=== PATIENT | male | born 1930 | race African-American/Black ===

== ENCOUNTER 2017-02-07 19:41 | Inpatient (IN) | payer OTHER, MEDICARE ==
[~2017-02-07] VITALS: Ht 165.1 cm; Wt 74.7 kg
[~2017-02-07 19:41] MED LIST: Z.0.NO CURRENT MEDS
[2017-02-07 19:46] VITALS: BP 186/110; PULSE 100; RESP 16; TEMP 102.7; O2SAT 96
[2017-02-07] MEDS ORDERED: SODIUM CHLOR 0.9% 1000 ML INJ 1,000 ML IV ONE (19:47)
[2017-02-07] MEDS ORDERED: ACETAMINOPHEN 325 MG TAB PO ONE (20:00)
--- NOTE | 2017-02-07 20:18 | RADRPT ---
EXAM DATE/TIME: 02/07/2017 20:03 [facility] COMPARISON: No previous studies available for comparison. INDICATIONS : Fall today; unsteady gait. RADIATION DOSE: 56.77 CTDIvol (mGy) MEDICAL HISTORY : Dementia. SURGICAL HISTORY : None. ENCOUNTER: Initial ACUITY: 1 day PAIN SCALE: 4/10 LOCATION: cranial TECHNIQUE: Multiple contiguous axial images were obtained of the head. Using automated exposure control and adj ustment of the mA and/or kV according to patient size, radiation dose was kept as low as reasonably a chievable to obtain optimal diagnostic quality images. 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 There is patchy mild hypodensity in the deep white matter structures likely chronic ischemic in etiology. There is no evidence of intracranial mas s or hemorrhage. There is nothing to suggest acute infarction. The extracranial structures are benign and intact. CONCLUSION: No acute intracranial injury Tra Garibay MD on February 07, 2017 at 20:16 Board Certified Radiologist. This report was verified electronically.
--- NOTE | 2017-02-07 20:38 | RADRPT ---
EXAM DATE/TIME: 02/07/2017 20:28 [facility] COMPARISON: No previous studies available for comparison. INDICATIONS : Weakness, cough starting today MEDICAL HISTORY : Unobtainable SURGICAL HISTORY : Unobtainable ENCOUNTER: Initial ACUITY: 1 day PAIN SCORE: Non-responsive. LOCATION: Bilateral chest FINDINGS: There is patchy airspace disease at the right lung base medially. Differential diagnosis includes a f ocal bronchopneumonia. Left lung clear. No effusions. No pneumothorax. Atherosclerotic and tortuous a bryon. CONCLUSION: 1. Patchy airspace disease right lung base medially. Differential diagnosis includes focal bronchopne umonia. Clarence Gross MD on February 07, 2017 at 20:34 Board Certified Radiologist. This report was verified electronically.
[2017-02-07 20:41] LABS: AUTOMATED NEUTROPHIL # 5.4 TH/MM3 (1.8-7.7); BASOPHIL % 0.5 % (0.0-2.0); HEMATOCRIT 40.1 % (39.0-51.0); HEMO FLAGS DIFF FINAL; LYMPH % 15.2 % (9.0-44.0); LYMPHOCYTE # 1.1 TH/MM3 (1.0-4.8); MEAN CELL VOLUME 88.3 FL (80.0-100.0); MEAN CORPUSCULAR HEMOGLOBIN 30.5 PG (27.0-34.0); MEAN CORPUSCULAR HGB CONC 34.6 % (32.0-36.0); MONO % 10.4 % (0.0-8.0); NEUT % 73.9 % (16.0-70.0); PLATELET COUNT 133 TH/MM3 (150-450); RED BLOOD COUNT 4.54 MIL/MM3 (4.50-5.90); RED CELL DISTRIBUTION WIDTH 15.1 % (11.6-17.2); WHITE BLOOD COUNT 7.3 TH/MM3 (4.0-11.0)
[2017-02-07 20:42] LABS: BLOOD, URINE SMALL (NEG); GLUCOSE,URINE NEG (NEG); KETONE, URINE NEG (NEG); NITRITE,URINE NEG (NEG); URINE COLOR YELLOW (YELLW/STRAW)
[2017-02-07 20:47] VITALS: RESP 16
[2017-02-07 20:47] LABS: COMMENT (UR) CATH-CULT NOT IND; CULTURE IF INDICATED CATH CULTURE NOT IND
[2017-02-07 20:50] LABS: APTT (PATIENT) 27.7 SEC (24.3-30.1); PROTHROMBIN TIME - PATIENT 11.3 SEC (9.8-11.6)
[2017-02-07 21:06] LABS: ANION GAP 10 MEQ/L (5-15); AST (GOT) 51 U/L (15-37); BICARBONATE 27.1 MEQ/L (21.0-32.0); BLOOD UREA NITROGEN 27 MG/DL (7-18); CHLORIDE 102 MEQ/L (98-107); GLOMERULAR FILTRATION RATE 24 ML/MIN (>89); POTASSIUM 4.3 MEQ/L (3.5-5.1); SODIUM (NA) 139 MEQ/L (136-145)
[2017-02-07 21:11] LABS: ALKALINE PHOSPHATASE 63 U/L (45-117); ALT (GPT) 43 U/L (12-78); TOTAL BILIRUBIN ADULT 0.8 MG/DL (0.2-1.0)
[2017-02-07] MEDS ORDERED: AZITHROMYCIN INJ 500 MG in SODIUM CHLOR 0.9% 250 ML INJ 250 ML IV ONE (21:15)
[2017-02-07] MEDS ORDERED: cefTRIAXone INJ 1,000 MG in SODIUM CHLORIDE 0.9% INJ 100 ML IV ONE (21:15)
[2017-02-07] MEDS ORDERED: ASPIRIN 81 MG CHEW TAB CHEW ONE (21:30)
[2017-02-07 21:43] VITALS: BP 121/69; PULSE 92; RESP 16; TEMP 101.1; O2SAT 97
[2017-02-07] MEDS ORDERED: ONDANSETRON HCL 4 MG/2 ML VIAL IV PUSH PRN (21:45)
[2017-02-07] MEDS ORDERED: RESP: ALBUTEROL 1.25 MG/3 ML NEB (PRN) NEB (22:00)
--- NOTE | 2017-02-07 22:09 | PD ---
HPI Chief Complaint: Fall Time Seen by Provider: 19:45 Travel History International Travel<30 days: No Contact w/Intl Traveler<30days: No Traveled to known affect area: No History of Present Illness HPI Patient is an elderly male with history of dementia, brought in by EMS after his daughter found him to be weak and stumbling while walking. Per EMS, patient fell over into a glass table, which broke, but he did not fall to the ground or hit his head. Patient was found to be febrile by EMS. Patient is demented and is unable to provide any history. PFSH Past Medical History Tetanus Vaccination: Unknown Influenza Vaccination: No Social History Alcohol Use: No Tobacco Use: No Substance Use: No Allergies-Medications (Allergen,Severity, Reaction): Coded Allergies: UNOBTAINABLE (Unverified , 02/07/17) Reported Meds & Prescriptions Reported Meds & Active Scripts Active Active Prescriptions or Reported Medications Unobtainable Review of Systems ROS Limitations: Clinical Condition, Other: (dementia) Physical Exam Narrative GENERAL: Awake and alert, in no acute distress SKIN: Focused skin assessment warm/dry. HEAD: Atraumatic. Normocephalic. EYES: Pupils equal and round. No scleral icterus. ENT: Mucous membranes pink and moist. NECK: Trachea midline. No JVD. CARDIOVASCULAR: Regular rate and rhythm. No murmur appreciated. RESPIRATORY: No accessory muscle use. Rhonchi on the right. Breath sounds equal bilaterally. GASTROINTESTINAL: Abdomen soft, non-tender, nondistended. MUSCULOSKELETAL: No obvious deformities. No clubbing. No cyanosis. No edema. NEUROLOGICAL: Awake and alert, oriented to person only. No obvious cranial nerve deficits. Motor grossly within normal limits. Data Data Last Documented VS Vital Signs Date Time Temp Pulse Resp B/P Pulse Ox O2 Delivery O2 Flow Rate FiO2 02/07/17 21:43 101.1 92 16 121/69 97 Room Air Orders Electrocardiogram (02/07/17 19:47) Complete Blood Count With Diff (02/07/17 19:47) Comprehensive Metabolic Panel (02/07/17 19:47) Prothrombin Time / Inr (Pt) (02/07/17 19:47) Act Partial Throm Time (Ptt) (02/07/17 19:47) Lactic Acid Sepsis Protocol (02/07/17 19:47) Troponin I (02/07/17 19:47) Urinalysis - C+S If Indicated (02/07/17 19:47) Ua Includes Microscopic (02/07/17 19:47) Blood Culture (02/07/17 19:47) Chest, Single Ap (02/07/17 19:47) Blood Glucose (02/07/17 19:47) Ecg Monitoring (02/07/17 19:47) Iv Access Insert/Monitor (02/07/17 19:47) Oximetry (02/07/17 19:47) Acetaminophen (Tylenol) (02/07/17 20:00) Ct Brain W/O Iv Contrast(Rout) (02/07/17 19:47) Sodium Chlor 0.9% 1000 Ml Inj (Ns 1000 M (02/07/17 19:47) Ceftriaxone Inj (Rocephin Inj) (02/07/17 21:15) Azithromycin Inj (Zithromax Inj) (02/07/17 21:15) Aspirin Chew (Aspirin Chew) (02/07/17 21:30) Admit Order (Ed Use Only) (02/07/17 ) Labs Laboratory Tests Test 02/07/17 20:00 White Blood Count 7.3 TH/MM3 Red Blood Count 4.54 MIL/MM3 Hemoglobin 13.9 GM/DL Hematocrit 40.1 % Mean Corpuscular Volume 88.3 FL Mean Corpuscular Hemoglobin 30.5 PG Mean Corpuscular Hemoglobin 34.6 % Concent Red Cell Distribution Width 15.1 % Platelet Count 133 TH/MM3 Mean Platelet Volume 10.2 FL Neutrophils (%) (Auto) 73.9 % Lymphocytes (%) (Auto) 15.2 % Monocytes (%) (Auto) 10.4 % Eosinophils (%) (Auto) 0.0 % Basophils (%) (Auto) 0.5 % Neutrophils # (Auto) 5.4 TH/MM3 Lymphocytes # (Auto) 1.1 TH/MM3 Monocytes # (Auto) 0.8 TH/MM3 Eosinophils # (Auto) 0.0 TH/MM3 Basophils # (Auto) 0.0 TH/MM3 CBC Comment DIFF FINAL Differential Comment Prothrombin Time 11.3 SEC Prothromb Time International 1.0 RATIO Ratio Activated Partial 27.7 SEC Thromboplast Time Urine Color YELLOW Urine Turbidity CLEAR Urine pH 6.0 Urine Specific [place] 1.014 Urine Protein 30 mg/dL Urine Glucose (UA) NEG mg/dL Urine Ketones NEG mg/dL Urine Occult Blood SMALL Urine Nitrite NEG Urine Bilirubin NEG Urine Urobilinogen LESS THAN 2.0 MG/DL Urine Leukocyte Esterase NEG Urine RBC 1 /hpf Urine WBC 1 /hpf Microscopic Urinalysis Comment CATH-CULT NOT IND Sodium Level 139 MEQ/L Potassium Level 4.3 MEQ/L Chloride Level 102 MEQ/L Carbon Dioxide Level 27.1 MEQ/L Anion Gap 10 MEQ/L Blood Urea Nitrogen 27 MG/DL Creatinine 2.36 MG/DL Estimat Glomerular Filtration 24 ML/MIN Rate Random Glucose 110 MG/DL Lactic Acid Level 1.7 mmol/L Calcium Level 9.0 MG/DL Total Bilirubin 0.8 MG/DL Aspartate Amino Transf 51 U/L (AST/SGOT) Alanine Aminotransferase 43 U/L (ALT/SGPT) Alkaline Phosphatase 63 U/L Troponin I 0.18 NG/ML Total Protein 8.3 GM/DL Albumin 3.7 GM/DL [facility] Medical Decision Making Medical Screen Exam Complete: Yes Emergency Medical Condition: Yes Interpretation(s) ECG shows normal sinus rhythm at 96, no ST elevation or depression, normal intervals Differential Diagnosis Sepsis vs ICH vs pneumonia vs UTI Narrative Course Patient is an elderly gentleman brought in due to weakness, afebrile. Exam shows rhonchi in the right lung. IV established, labs sent. Troponin is slightly elevated at 0.18. ECG shows no evidence of ST elevation or depression. Labs also show a creatinine of 2.36, I am unaware if this is old or new. Patient given IV fluids. Given Tylenol for fever. Given Rocephin and azithromycin for pneumonia. Patient given an aspirin. Blood thinners held at this time as elevated troponin is likely due to sepsis. We'll trend the lab. Patient admitted for further management. Sepsis Criteria SIRS Criteria (2 or more): Temp > 100.9 or < 96.8, Heart rate over 90 Sepsis Criteria (SIRS+source): Infect source susp/known Criteria Outcome: Meets sepsis criteria Diagnosis Primary Impression: Pneumonia Qualified Code: J18.1 - Pneumonia of right lower lobe due to infectious organism Additional Impression: Sepsis Qualified Code: A41.9 - Sepsis, due to unspecified organism Admitting Information Admitting Physician Requests: Admit Scripts Unable to Obtain Active Prescriptions or Reported Meds Dodie Amaya MD Feb 07, 2017 22:09
[2017-02-07] MEDS: SODIUM CHLOR 0.9% 1000 ML INJ 1,000 ML IV SCH (23:22)
[2017-02-07 23:23] VITALS: TEMP 99.3
[2017-02-08] VITALS (8 sets, daily range): BP systolic 135–194; BP diastolic 85–119; PULSE 82–121; RESP 16–20; TEMP 96.2–102.2; O2SAT 92–97
--- NOTE | 2017-02-08 01:38 | HHI.HP ---
[facility] Unknown Admission Diagnosis pneumonia, sepsis Diagnoses: (1) Pneumonia (2) Sepsis (3) Renal insufficiency (4) Elevated troponin I level Chief Complaint: Fall, unsteady gate Travel History International Travel<30 Days: No Contact w/Intl Traveler <30 Da: No Traveled to Known Affected Are: No History of Present Illness History cannot be obtained from patient due to dementia; no family has accompanied the patient and we have no contact information for family. History is obtained from discussions with ER physician and ER nurse. Some of their information was gathered from what limited data EMS collected regarding patient' s condition. The patient is seen in the emergency room. He states that his name is "Tono " and he tells us he does not have a last name. He is alert and oriented to self only. He is unable to provide any historical information. The patient's registered nurse tells us that EMS reported the patient had an unsteady gait for 1 day and fell at home. He is normally able to walk without assistance. He has a history of dementia. Hopefully the patient's family will come to the bedside to clarify the patient's history. The patient's nurse indicates that the triage security and staff are aware that we are looking for family and have been directed to bring them straight back to the unit where he is should they arrive. Review of Systems ROS Limitations: Clinical Condition, Poor Historian (due to dementia) Past Family Social History Past Medical History Unable to obtain past medical history other than that the patient suffers from dementia . Past Surgical History Unable to obtain . Reported Medications unable to obtain . Allergies: Coded Allergies: UNOBTAINABLE (Unverified , 02/07/17) Active Ordered Medications Current Medications Acetaminophen 650 mg 650 mg ONCE ONCE PO Last administered on 02/07/17 20:38; Start 02/07/17 at 20:00; Stop 02/07/17 at 20:01; Status DC Sodium Chloride 1,000 ml @ 1,000 mls/hr Q1H ONCE IV Last administered on 20:38; Start 02/07/17 at 19:47; Stop 02/07/17 at 20:46; Status DC Ceftriaxone Sodium 1000 mg/ Sodium Chloride 100 ml @ 200 mls/hr ONCE ONCE IV Last administered on 02/07/17 21:36; Start 02/07/17 at 21:15; Stop 02/07/17 at 21: 44; Status DC Azithromycin/ Sodium Chloride (Zithromax Inj/ NS 250 ml Inj) 250 ml @ 250 mls/ hr ONCE ONCE IV Last administered on 02/07/17 22:20; Start 02/07/17 at 21:15; Stop 02/07/17 at 22:14; Status DC Aspirin 162 mg 162 mg ONCE ONCE CHEW Last administered on 02/07/17 21:38; Start 02/07/17 at 21:30; Stop 02/07/17 at 21:31; Status DC Ceftriaxone Sodium 1000 mg/ Sodium Chloride 100 ml @ 200 mls/hr Q24H IV ; Start 02/08/17 at 21:00 Azithromycin 500 mg/Sodium Chloride 250 ml @ 250 mls/hr Q24H IV ; Start at 21:00 Sodium Chloride (NS 1000 ml Inj) 1,000 ml @ 75 mls/hr [id number] IV Last administered on 02/07/17 23:22; Start 02/07/17 at 21:45 Acetaminophen (Tylenol) 650 mg Q4H PRN PO FEVER/PAIN; Start 02/07/17 at 21:45 Ondansetron HCl (Zofran Inj) 4 mg Q8H PRN IV PUSH NAUSEA; Start 02/07/17 at 21: 45 Albuterol Sulfate (Albuterol Neb) 1.25 mg Q4HR NEB PRN NEB SHORTNESS OF BREATH ; Start 02/07/17 at 22:00 . Family History Unable to obtain . Social History Unable to obtain . Physical Exam Vital Signs Vital Signs Date Time Temp Pulse Resp B/P Pulse Ox O2 Delivery O2 Flow Rate FiO2 02/08/17 01:14 82 16 152/85 97 Room Air 02/07/17 23:23 99.3 02/07/17 21:43 101.1 92 16 121/69 97 Room Air 02/07/17 21:36 16 02/07/17 20:47 16 02/07/17 19:50 16 Room Air 02/07/17 19:46 102.7 100 16 186/110 96 Physical Exam GENERAL: This is a thin, friendly elderly male with a [place] accent, in no apparent distress. He is alert and oriented to self only. SKIN: No rashes, ecchymoses or lesions. Cool and dry. HEAD: Atraumatic. Normocephalic. EYES: No scleral icterus. No injection or drainage. Right cataract. ENT: Nose without bleeding, purulent drainage. NECK: Trachea midline. No JVD or lymphadenopathy. CARDIOVASCULAR: Regular rate and rhythm without murmurs, gallops, or rubs. RESPIRATORY: Bilateral rhonchi; more on the right side. No wheezes, rales. GASTROINTESTINAL: Abdomen soft, non-tender, nondistended. No guarding. MUSCULOSKELETAL: Extremities without clubbing, cyanosis, or edema. No calf tenderness. NEUROLOGICAL: Awake and alert. Motor and sensory grossly within normal limits. Normal speech. . Laboratory Laboratory Tests Test 02/07/17 20:00 White Blood Count 7.3 Red Blood Count 4.54 Hemoglobin 13.9 Hematocrit 40.1 Mean Corpuscular Volume 88.3 Mean Corpuscular Hemoglobin 30.5 Mean Corpuscular Hemoglobin 34.6 Concent Red Cell Distribution Width 15.1 Platelet Count 133 Mean Platelet Volume 10.2 Neutrophils (%) (Auto) 73.9 Lymphocytes (%) (Auto) 15.2 Monocytes (%) (Auto) 10.4 Eosinophils (%) (Auto) 0.0 Basophils (%) (Auto) 0.5 Neutrophils # (Auto) 5.4 Lymphocytes # (Auto) 1.1 Monocytes # (Auto) 0.8 Eosinophils # (Auto) 0.0 Basophils # (Auto) 0.0 CBC Comment DIFF FINAL Differential Comment Prothrombin Time 11.3 Prothromb Time International 1.0 Ratio Activated Partial 27.7 Thromboplast Time Urine Color YELLOW Urine Turbidity CLEAR Urine pH 6.0 Urine Specific [place] 1.014 Urine Protein 30 Urine Glucose (UA) NEG Urine Ketones NEG Urine Occult Blood SMALL Urine Nitrite NEG Urine Bilirubin NEG Urine Urobilinogen LESS THAN 2.0 Urine Leukocyte Esterase NEG Urine RBC 1 Urine WBC 1 Microscopic Urinalysis Comment CATH-CULT NOT IND Sodium Level 139 Potassium Level 4.3 Chloride Level 102 Carbon Dioxide Level 27.1 Anion Gap 10 Blood Urea Nitrogen 27 Creatinine 2.36 Estimat Glomerular Filtration 24 Rate Random Glucose 110 Lactic Acid Level 1.7 Calcium Level 9.0 Total Bilirubin 0.8 Aspartate Amino Transf 51 (AST/SGOT) Alanine Aminotransferase 43 (ALT/SGPT) Alkaline Phosphatase 63 Troponin I 0.18 Total Protein 8.3 Albumin 3.7 Date/Time Procedure Status Source Growth 02/07/17 20:05 Aerobic Blood Culture Received Blood Peripheral Pending 02/07/17 20:05 Anaerobic Blood Culture Received Blood Peripheral Pending Result Diagram: 02/07/17199902/07/171999 Imaging Last Impressions Head CT 02/07/171946 Signed Impressions: Service Date/Time: Tuesday, February 07, 2017 20:03 - CONCLUSION: No acute intracranial injury Tra Garibay MD Chest X-Ray 02/07/171946 Signed Impressions: Service Date/Time: Tuesday, February 07, 2017 20:28 - CONCLUSION: 1. Patchy airspace disease right lung base medially. Differential diagnosis includes focal bronchopneumonia. Clarence Gross MD . Assessment and Plan Problem List: (1) Pneumonia ICD Code: J18.9 Status: Acute (2) Sepsis ICD Code: A41.9 Status: Acute (3) Renal insufficiency ICD Code: N28.9 Status: Acute (4) Elevated troponin I level ICD Code: R74.8 Status: Acute Assessment and Plan Right middle lobe pneumonia Sepsis - Ceftriaxone 1 g IV every 24 hours - Azithromycin 500 mg IV every 24 hours - Albuterol nebulizer 1.25 mg every 4 hours as needed for shortness of breath - Supplemental oxygen titrated to maintain oxygen saturation greater than 92% Troponin I elevation - likely secondary to a combination of both renal disease and sepsis - Initial troponin I is 0.18 - Serial troponin I measurements - follow trends Renal Disease - no prior labs available for comparison - - BUN 27, creatinine 2.36, estimated GFR 24 - Gentle IV fluid hydration with normal saline at 75 cc per hour - Recheck BMP in a.m. and follow trends in renal indices - Avoid nephrotoxins DVT prophylaxis - SCDs Written by Jo Qureshi, acting as scribe for Dr. Pizarro on 02/08/17 at 01:33. patient was seen and examined today. patient with dementia , with fever and RLL infiltrate. continue with IV antibiotics and monitor clinically. will trend the cardiac enzymes- information is limited due to patient's dementia. rest of assessment and plan as noted above. . Discussed Condition With ER physician and RN . Physician Certification 2 Midnight Certification Type: Admission for Inpatient Services Order for Inpatient Services The services are ordered in accordance with Medicare regulations or non- Medicare payer requirements, as applicable. In the case of services not specified as inpatient-only, they are appropriately provided as inpatient services in accordance with the 2-midnight benchmark. Estimated LOS (days): 3 days is the estimated time the patient will need to remain in the hospital, assuming treatment plan goals are met and no additional complications. Post-Hospital Plan: Not yet determined Problem Qualifiers (1) Pneumonia: Qualified Code: J18.1 - Pneumonia of right lower lobe due to infectious organism (2) Sepsis: Qualified Code: A41.9 - Sepsis, due to unspecified organism Jo Qureshi Feb 08, 2017 01:38 Mitchell Pizarro MD Feb 08, 2017 03:09
[2017-02-08 06:56] LABS: C. DIFF EPI 027 PRESUMPTIVE NEGATIVE (NEGATIVE)
--- NOTE | 2017-02-08 09:11 | HHI.PR ---
Subjective Remarks Follow-up sepsis, pneumonia, encephalopathy. The patient is quite confused. He is not able to provide any history. No family is available at bedside at this time. Objective Vitals Vital Signs Date Time Temp Pulse Resp B/P Pulse Ox O2 Delivery O2 Flow Rate FiO2 02/08/17 08:05 92 21 02/08/17 04:38 98.9 02/08/17 04:00 86 16 160/91 96 Room Air 02/08/17 01:14 82 16 152/85 97 Room Air 02/07/17 23:23 99.3 02/07/17 21:43 101.1 92 16 121/69 97 Room Air 02/07/17 21:36 16 02/07/17 20:47 16 02/07/17 19:50 16 Room Air 02/07/17 19:46 102.7 100 16 186/110 96 Result Diagram: 02/07/17199902/07/171999 Imaging Last Impressions Head CT 02/07/171946 Signed Impressions: Service Date/Time: Tuesday, February 07, 2017 20:03 - CONCLUSION: No acute intracranial injury Tra Garibay MD Chest X-Ray 02/07/171946 Signed Impressions: Service Date/Time: Tuesday, February 07, 2017 20:28 - CONCLUSION: 1. Patchy airspace disease right lung base medially. Differential diagnosis includes focal bronchopneumonia. Clarence Gross MD Objective Remarks General: Thin male in no acute distress. Heart: Regular rate and rhythm. No murmur. Lungs: Clear to auscultation bilaterally. No wheezes, rales, or rhonchi. Breathing is nonlabored. Abdomen: Soft, nontender, nondistended. Extremities: No lower extremity edema. Psych: Alert, confused. Urinary Catheter: No Vascular Central Line Catheter: No A/P Problem List: (1) Pneumonia ICD Code: J18.9 Status: Acute (2) Sepsis ICD Code: A41.9 Status: Acute (3) Renal insufficiency ICD Code: N28.9 Status: Acute (4) Elevated troponin I level ICD Code: R74.8 Status: Acute (5) Encephalopathy ICD Code: G93.40 Status: Acute Assessment and Plan 1. Sepsis secondary to right middle lobe pneumonia: Continue IV antibiotics. Blood cultures are pending. 2. Pneumonia: Continue antibiotics, nebulizers, supplemental oxygen. 3. Acute versus chronic renal failure: BUN and creatinine are elevated. No prior labs available for review. Continue IV fluids. Repeat labs are pending this morning. 4. Elevated troponin: Likely secondary to combination of renal disease, sepsis. Follow serial troponins. 5. Encephalopathy: Likely secondary to sepsis. May be a component of dementia. Awaiting arrival of family to provide more information regarding patient's history. 6. DVT prophylaxis: Bharathi, KAREY muhammad. Problem Qualifiers (1) Pneumonia: Qualified Code: J18.1 - Pneumonia of right lower lobe due to infectious organism (2) Sepsis: Qualified Code: A41.9 - Sepsis, due to unspecified organism Trav Velez MD Feb 08, 2017 09:11
[2017-02-08] MEDS ORDERED: HYDR50TA15 PO (09:45)
[2017-02-08] MEDS ORDERED: METO50TA11 PO (09:45)
[2017-02-08] MEDS ORDERED: LOSA100T PO (09:45)
[2017-02-08 11:10] LABS: BICARBONATE 21.9 MEQ/L (21.0-32.0); POTASSIUM 4.1 MEQ/L (3.5-5.1)
[2017-02-08] MEDS: SODIUM CHLOR 0.9% 1000 ML INJ 1,000 ML IV SCH (12:05)
--- NOTE | 2017-02-08 12:53 | EKG ---
Date Performed: 02/07/2017 Time Performed: 21:24:56 PTAGE: 89 years EKG: Sinus rhythm WITH OCCASIONAL SUPRAVENTRICULAR PREMATURE COMPLEXES MARKED LEFT AXIS DEVIATION NONSPECIFIC ST & T[address] A[address] ABNORMALITY ABNORMAL ECG NO PREVIOUS TRACING DOCTOR: Bhavesh Pollock Interpretating Date/Time 02/08/2017 12:52:31
[2017-02-08] MEDS ORDERED: hydrALAZINE HCL 10 MG TAB PO PRN (13:15)
[2017-02-08] MEDS: ACETAMINOPHEN 325 MG TAB PO PRN (15:02)
[2017-02-08] MEDS: METOPROLOL SUCCINATE 50 MG EXTENDED RELEASE TAB PO SCH (15:02)
[2017-02-08 15:23] LABS: C. DIFF TOXIN PCR POSITIVE (NEGATIVE)
[2017-02-08] MEDS: hydrALAZINE HCL 50 MG TAB PO SCH (20:18)
[2017-02-08] MEDS: cefTRIAXone INJ 1,000 MG in SODIUM CHLORIDE 0.9% INJ 100 ML IV SCH (20:18)
[2017-02-08] MEDS ORDERED: AZITHROMYCIN INJ 500 MG in SODIUM CHLOR 0.9% 250 ML INJ 250 ML IV SCH (21:00)
[2017-02-09] VITALS: BP 122/91; PULSE 60; RESP 24; TEMP 102.5; O2SAT 93
[2017-02-09 04:00] VITALS: BP 120/96; PULSE 60; RESP 24; TEMP 103.1
[2017-02-09] MEDS: SODIUM CHLOR 0.9% 1000 ML INJ 1,000 ML IV SCH ×2 (04:00→14:50)
[2017-02-09] MEDS: ACETAMINOPHEN 325 MG TAB PO PRN ×3 (05:45→20:24)
[2017-02-09 06:56] LABS: AUTOMATED NEUTROPHIL # 6.3 TH/MM3 (1.8-7.7); BASOPHIL % 0.3 % (0.0-2.0); EOSINOPHIL % 0.1 % (0.0-4.0); HEMATOCRIT 36.1 % (39.0-51.0); MEAN CELL VOLUME 88.6 FL (80.0-100.0); MEAN CORPUSCULAR HEMOGLOBIN 29.6 PG (27.0-34.0); MEAN CORPUSCULAR HGB CONC 33.4 % (32.0-36.0); MONO % 7.8 % (0.0-8.0); NEUT % 78.8 % (16.0-70.0); PLATELET COUNT 115 TH/MM3 (150-450); RED BLOOD COUNT 4.07 MIL/MM3 (4.50-5.90); RED CELL DISTRIBUTION WIDTH 14.8 % (11.6-17.2)
[2017-02-09 06:57] LABS: HEMO FLAGS AUTO DIFF
[2017-02-09 07:20] LABS: BICARBONATE 24.7 MEQ/L (21.0-32.0); MAGNESIUM 1.8 MG/DL (1.5-2.5); POTASSIUM 3.8 MEQ/L (3.5-5.1)
[2017-02-09 08:09] LABS: BANDS 28 % (0-6); METAMYELOCYTES 2 % (0-1); MYELOCYTES 1 % (0-0); NEUTROPHIL # MANUAL DIFF 6.6 TH/MM3 (1.8-7.7); POLYS (SEG NEUTROPHILS) 52 % (16-70); WBC DIFF SAMPLE 100
[2017-02-09 08:10] LABS: OVALOCYTES 3+ (NORMAL)
[2017-02-09 08:13] LABS: PLATELET ESTIMATE SMEAR LOW (NORMAL); PLATELET MORPHOLOGY NORMAL (NORMAL); SCAN/DIFF FINAL DIFF MANUAL
[2017-02-09 08:24] VITALS: BP 156/90; PULSE 94; RESP 18; TEMP 101.1; O2SAT 94
[2017-02-09] MEDS: metroNIDAZOLE 500 MG TAB PO SCH ×2 (08:58→17:47)
[2017-02-09] MEDS: hydrALAZINE HCL 50 MG TAB PO SCH ×2 (08:58→20:24)
[2017-02-09] MEDS: METOPROLOL SUCCINATE 50 MG EXTENDED RELEASE TAB PO SCH (08:59)
[2017-02-09] MEDS: LOSARTAN 50 MG TAB PO SCH (08:59)
--- NOTE | 2017-02-09 11:30 | HHI.PR ---
Subjective Remarks Follow-up fever, sepsis. Patient remains confused. Has been febrile up to 103.1 this morning. Denies pain, dyspnea. Objective Vitals Vital Signs Date Time Temp Pulse Resp B/P Pulse Ox O2 Delivery O2 Flow Rate FiO2 02/09/17 08:24 101.1 94 18 156/90 94 02/09/17 04:00 103.1 60 24 120/96 02/09/17 00:00 102.5 60 24 122/91 93 02/08/17 20:00 96.2 102 20 180/ 94 02/08/17 17:30 93 21 02/08/17 16:37 102.2 121 20 135/119 93 I/O 02/08/17 02/08/17 02/08/17 02/09/17 02/09/17 02/09/17 07:00 15:00 23:00 07:00 15:00 23:00 Intake Total 1144 ml Output Total 100 ml Balance -100 ml 1144 ml Intake Oral 240 ml IV Total 904 ml Output Urine Total 100 ml # Voids 2 2 1 # Bowel Movements 0 0 Result Diagram: 02/09/17 0635 02/09/17 0635 Imaging Last Impressions Head CT 02/07/171946 Signed Impressions: Service Date/Time: Tuesday, February 07, 2017 20:03 - CONCLUSION: No acute intracranial injury Tra Garibay MD Chest X-Ray 02/07/171946 Signed Impressions: Service Date/Time: Tuesday, February 07, 2017 20:28 - CONCLUSION: 1. Patchy airspace disease right lung base medially. Differential diagnosis includes focal bronchopneumonia. Clarence Gross MD Objective Remarks General: Thin elderly male in no acute distress. Heart: Regular rate and rhythm. No murmur. Lungs: Clear to auscultation bilaterally. No wheezes, rales, or rhonchi. Breathing is nonlabored. Abdomen: Soft, nontender, nondistended. Extremities: No lower extremity edema. Psych: Alert, confused. Not oriented to year, location. Urinary Catheter: No Vascular Central Line Catheter: No A/P Problem List: (1) Pneumonia ICD Code: J18.9 Status: Acute (2) Sepsis ICD Code: A41.9 Status: Acute (3) Renal insufficiency ICD Code: N28.9 Status: Acute (4) Elevated troponin I level ICD Code: R74.8 Status: Acute (5) Encephalopathy ICD Code: G93.40 Status: Acute (6) Clostridium difficile infection ICD Code: B96.89 Status: Acute Assessment and Plan 1. Sepsis secondary to right middle lobe pneumonia, C. difficile: Continue IV antibiotics. Blood cultures are negative so far. Patient remains febrile. Started on Flagyl. Infectious disease consult requested. 2. Pneumonia: Continue antibiotics, nebulizers, supplemental oxygen. 3. Acute versus chronic renal failure: BUN and creatinine are trending down. Continue IV fluids. 4. Elevated troponin: Likely secondary to combination of renal disease, sepsis. 5. Encephalopathy: Likely secondary to sepsis. Patient also apparently has history of dementia. 6. DVT prophylaxis: SCDs, KAREY muhammad. Problem Qualifiers (1) Pneumonia: Qualified Code: J18.1 - Pneumonia of right lower lobe due to infectious organism (2) Sepsis: Qualified Code: A41.9 - Sepsis, due to unspecified organism Trav Velez MD Feb 09, 2017 11:30
[2017-02-09 11:40] VITALS: BP 122/81; PULSE 80; RESP 18; TEMP 96.9; O2SAT 95
--- NOTE | 2017-02-09 12:22 | PD.CONS ---
History of Present Illness Service Infectious disease Consult Requested By Dr Tere Velez Reason for Consult Evaluate patient with pneumonia and C diff Primary Care Physician Diagnoses: History of Present Illness Patient seen and examined. Records reviewed. History is been obtained from patient's current records in [facility]. He is a very poor historian. He has history of dementia. Looks like he was brought in to the hospital by the daughter because of unsteady gait which apparently started about a day prior to admission. He fell at home, but there was no mention that he had any loss of consciousness. There was no mention that the patient was having any problem with fever or chills or sweats. No respiratory complaints, nausea or vomiting, abdominal pain, or diarrhea. Since admission, patient has had fevers. His WBC has been normal. He had a creatinine of 2.36 which has improved. His chest x-ray showing some patchy infiltrate in the right base medially. His urinalysis was unremarkable. Yesterday morning the patient apparently had 2 episodes of diarrhea. Stool for C. difficile came back positive. As of today patient has had one more she dark brown stool. Infectious disease consultation has been requested to evaluate the patient. Review of Systems ROS Limitations: Clinical Condition, Altered Mental Status Past Family Social History Allergies: Coded Allergies: No Known Allergies (Verified , 11/22/06) UNOBTAINABLE (Unverified , 02/09/17) Past Medical History Dementia Past Surgical History Not known Active Ordered Medications Tylenol Albuterol Zithromax Rocephin Hydralazine Cozaar Lopressor Flagyl Zofran Social History Per record no smoking, no alcohol or illicit drugs Physical Exam Vital Signs Vital Signs Date Time Temp Pulse Resp B/P Pulse Ox O2 Delivery O2 Flow Rate FiO2 02/09/17 11:40 96.9 80 18 122/81 95 02/09/17 08:24 101.1 94 18 156/90 94 02/09/17 04:00 103.1 60 24 120/96 02/09/17 00:00 102.5 60 24 122/91 93 02/08/17 20:00 96.2 102 20 180/ 94 02/08/17 17:30 93 21 02/08/17 16:37 102.2 121 20 135/119 93 Physical Exam GENERAL: This is a thin, well-developed male, awake and alert, but very poor orientation. He looks comfortable at rest. SKIN: Warm and dry, no generalized rash or ecchymosis. HEAD: Atraumatic. Normocephalic. No temporal or scalp tenderness. EYES: [place] conjunctivae. Pupils equal round and reactive. Extraocular motions intact. No scleral icterus. No injection or drainage. ENT: Nose without bleeding, or purulent drainage. Moist oral mucosa, edentulous , and he is wearing upper and lower dentures. Throat without erythema, or exudate. Uvula midline. Airway patent. NECK: Trachea midline. No JVD or lymphadenopathy. Supple, nontender, no meningeal signs. CARDIOVASCULAR: Regular rate and rhythm without murmurs, gallops, or rubs. RESPIRATORY: Clear to auscultation. Breath sounds equal bilaterally. No wheezes , rales, or rhonchi. Decreased breath sounds at the bases. GASTROINTESTINAL: Abdomen soft, flat, non-tender, nondistended. Bowel sounds are present and normoactive. No organomegaly. No guarding. No rebound. MUSCULOSKELETAL: Extremities without clubbing, cyanosis, or edema. No joint effusion, good ROM. No calf tenderness. NEUROLOGICAL: Awake and alert. Cranial nerves II through XII intact. Motor and sensory grossly within normal limits. Five out of 5 muscle strength in all muscle groups. Normal speech. PSYCH: Currently he is calm and cooperative. LINE: PIV with no evidence of infection Laboratory Laboratory Tests Test 02/09/17 06:35 White Blood Count 8.0 Red Blood Count 4.07 Hemoglobin 12.1 Hematocrit 36.1 Mean Corpuscular Volume 88.6 Mean Corpuscular Hemoglobin 29.6 Mean Corpuscular Hemoglobin 33.4 Concent Red Cell Distribution Width 14.8 Platelet Count 115 Mean Platelet Volume 10.2 Neutrophils (%) (Auto) 78.8 Lymphocytes (%) (Auto) 13.0 Monocytes (%) (Auto) 7.8 Eosinophils (%) (Auto) 0.1 Basophils (%) (Auto) 0.3 Neutrophils # (Auto) 6.3 Lymphocytes # (Auto) 1.0 Monocytes # (Auto) 0.6 Eosinophils # (Auto) 0.0 Basophils # (Auto) 0.0 CBC Comment AUTO DIFF Differential Total Cells 100 Counted Neutrophils % (Manual) 52 Band Neutrophils % 28 Lymphocytes % 10 Monocytes % 7 Neutrophils # (Manual) 6.6 Metamyelocytes 2 Myelocytes 1 Differential Comment FINAL DIFF MANUAL Platelet Estimate LOW Platelet Morphology Comment NORMAL Ovalocytes 3+ Sodium Level 138 Potassium Level 3.8 Chloride Level 104 Carbon Dioxide Level 24.7 Anion Gap 9 Blood Urea Nitrogen 23 Creatinine 1.77 Estimat Glomerular Filtration 45 Rate Random Glucose 92 Calcium Level 8.1 Phosphorus Level 2.1 Magnesium Level 1.8 Date/Time Procedure Status Source Growth 02/09/17 10:42 Aerobic Blood Culture Received Blood Peripheral Pending 02/09/17 10:42 Anaerobic Blood Culture Received Blood Peripheral Pending 02/07/17 20:05 Aerobic Blood Culture - Preliminary Resulted Blood Peripheral NO GROWTH IN 2 DAYS 02/07/17 20:05 Anaerobic Blood Culture - Preliminary Resulted Blood Peripheral NO GROWTH IN 2 DAYS Result Diagram: 02/09/17 0635 02/09/17 0635 Imaging RADIOLOGY STUDIES/FILMS REVIEWED Head CT 02/07/171946 Signed Impressions: Service Date/Time: Tuesday, February 07, 2017 20:03 - CONCLUSION: No acute intracranial injury Tra Garibay MD Chest X-Ray 02/07/171946 Signed Impressions: Service Date/Time: Tuesday, February 07, 2017 20:28 - CONCLUSION: 1. Patchy airspace disease right lung base medially. Differential diagnosis includes focal bronchopneumonia. Clarence Gross MD Assessment and Plan Assessment and Plan IMPRESSION Sepsis, with high fevers, normal WBC, has infiltrate R base, no PNA symptoms, has stool for C diff, 2 stools yesterday, one today, benign abdominal exam, UA ok Known Dementia RECOMMENDATION Follow C/S Bladder scan Repeat CXR Urine for legio and pneumo Ag Agree with current Abx: Rocephin, Zithromax (change to po), and Flagyl Add Lactinex Monitor progress Follow temps I will follow along with you Thank you for this consultation Discussed Condition With D/W RN Tricia Garcia MD Feb 09, 2017 12:21
--- NOTE | 2017-02-09 13:17 | RADRPT ---
EXAM DATE/TIME: 02/09/2017 12:49 [place] COMPARISON: CHEST SINGLE AP, February 07, 2017, 20:28. INDICATIONS : Follow up right base infiltrate. MEDICAL HISTORY : Dementia. SURGICAL HISTORY : None. PAIN SCORE: 0/10 LOCATION: Bilateral chest FINDINGS: . Increasing consolidations are present in the right lung base. The left lung is clear. The heart a nd pulmonary vascularity are normal. The portion of the bony skeleton visualized is unremarkable. CONCLUSION: Increasing consolidative changes right lung base. Arya Horton MD FACR on February 09, 2017 at 13:14 Board Certified Radiologist. This report was verified electronically.
--- NOTE | 2017-02-09 13:35 | EKG ---
Date Performed: 02/08/2017 Time Performed: 09:57:57 PTAGE: 86 years EKG: Sinus rhythm WITH FREQUENT SUPRAVENTRICULAR PREMATURE COMPLEXES MARKED LEFT AXIS DEVIATION POSSIBLE RIGHT VENTRIC ULAR CONDUCTION DELAY ANTEROSEPTAL MYOCARDIAL INFARCTION ABNORMAL ECG Compared to prior tracing no si gnificant change PREVIOUS TRACING : 02/07/2017 21.24 DOCTOR: Jose Ortiz Interpretating Date/Time 02/09/2017 13:35:06
[2017-02-09] MEDS: LACTOBACILLUS ACIDOPHILUS TAB PO SCH ×2 (14:47→17:46)
[2017-02-09 16:34] VITALS: BP 161/92; PULSE 96; RESP 20; TEMP 96.5; O2SAT 95
[2017-02-09 20:15] VITALS: BP 139/80; PULSE 96; RESP 20; TEMP 102.7; O2SAT 94
[2017-02-09] MEDS: AZITHROMYCIN 250 MG TAB PO SCH (20:24)
[2017-02-09] MEDS: cefTRIAXone INJ 1,000 MG in SODIUM CHLORIDE 0.9% INJ 100 ML IV SCH (20:24)
[2017-02-10 00:28] VITALS: BP 135/82; PULSE 65; RESP 20; TEMP 103.4; O2SAT 95
[2017-02-10] MEDS: metroNIDAZOLE 500 MG TAB PO SCH ×3 (00:42→18:26)
[2017-02-10] MEDS: ACETAMINOPHEN 325 MG TAB PO PRN (00:44)
[2017-02-10] MEDS: ACETAMINOPHEN 650 MG SUPP RECTAL PRN ×2 (01:08→05:04)
[2017-02-10] MEDS: SODIUM CHLOR 0.9% 1000 ML INJ 1,000 ML IV SCH ×2 (04:04→16:25)
[2017-02-10 05:11] VITALS: BP 158/77; PULSE 115; RESP 19; TEMP 101.2; O2SAT 97
[2017-02-10 06:24] LABS: BASOPHIL % 0.3 % (0.0-2.0); HEMATOCRIT 39.5 % (39.0-51.0); HEMO FLAGS DIFF FINAL; LYMPH % 8.3 % (9.0-44.0); LYMPHOCYTE # 0.9 TH/MM3 (1.0-4.8); MEAN CELL VOLUME 87.8 FL (80.0-100.0); MEAN CORPUSCULAR HGB CONC 34.2 % (32.0-36.0); MONO % 4.7 % (0.0-8.0); NEUT % 86.7 % (16.0-70.0); PLATELET COUNT 128 TH/MM3 (150-450); RED CELL DISTRIBUTION WIDTH 15.7 % (11.6-17.2); WHITE BLOOD COUNT 10.3 TH/MM3 (4.0-11.0)
[2017-02-10 06:39] LABS: BICARBONATE 25.1 MEQ/L (21.0-32.0); POTASSIUM 3.8 MEQ/L (3.5-5.1)
[2017-02-10 08:00] VITALS: BP 158/83; PULSE 110; RESP 16; TEMP 100.4; O2SAT 94
[2017-02-10] MEDS: LOSARTAN 50 MG TAB PO SCH (10:27)
[2017-02-10] MEDS: LACTOBACILLUS ACIDOPHILUS TAB PO SCH ×3 (10:27→18:26)
[2017-02-10] MEDS: METOPROLOL SUCCINATE 50 MG EXTENDED RELEASE TAB PO SCH (10:27)
[2017-02-10] MEDS: hydrALAZINE HCL 50 MG TAB PO SCH ×2 (10:27→21:41)
--- NOTE | 2017-02-10 11:16 | HHI.PR ---
Subjective Remarks Follow-up fever, sepsis, mental status change. Patient remains confused. Still febrile. Patient has been refusing Tylenol. No other events reported by nursing. Objective Vitals Vital Signs Date Time Temp Pulse Resp B/P Pulse Ox O2 Delivery O2 Flow Rate FiO2 02/10/17 08:00 100.4 110 16 158/83 94 02/10/17 05:11 101.2 115 19 158/77 97 02/10/17 00:28 103.4 65 20 135/82 95 02/09/17 20:15 102.7 96 20 139/80 94 02/09/17 16:34 96.5 96 20 161/92 95 02/09/17 11:40 96.9 80 18 122/81 95 I/O 02/09/17 02/09/17 02/09/17 02/10/17 02/10/17 02/10/17 07:00 15:00 23:00 07:00 15:00 23:00 Intake Total 893 ml 573 ml Output Total 1 ml Balance 893 ml 572 ml Intake Oral 60 ml IV Total 893 ml 513 ml Stool Total 1 ml Bladder Scan Volume Amount 176 ml # Voids 1 5 2 # Bowel Movements 0 1 2 Result Diagram: 02/10/17 0609 02/10/17 0609 Imaging Last Impressions Chest X-Ray 02/09/17 0000 Signed Impressions: Service Date/Time: Thursday, February 09, 2017 12:49 - CONCLUSION: Increasing consolidative changes right lung base. Arya Horton MD FACR Head CT 02/07/171946 Signed Impressions: Service Date/Time: Tuesday, February 07, 2017 20:03 - CONCLUSION: No acute intracranial injury Tra Garibay MD Objective Remarks General: Thin elderly male in no acute distress. Heart: Regular rate and rhythm. No murmur. Lungs: Clear to auscultation bilaterally. No wheezes, rales, or rhonchi. Breathing is nonlabored. Abdomen: Soft, nontender, nondistended. Extremities: No lower extremity edema. Psych: Alert, confused. Not oriented to year, location. Procedures None Urinary Catheter: No Vascular Central Line Catheter: No A/P Problem List: (1) Pneumonia ICD Code: J18.9 Status: Acute (2) Sepsis ICD Code: A41.9 Status: Acute (3) Renal insufficiency ICD Code: N28.9 Status: Acute (4) Elevated troponin I level ICD Code: R74.8 Status: Acute (5) Encephalopathy ICD Code: G93.40 Status: Acute (6) Clostridium difficile infection ICD Code: B96.89 Status: Acute Assessment and Plan 1. Sepsis secondary to right middle lobe pneumonia, C. difficile: Continue IV antibiotics. Blood cultures are negative so far. Patient remains febrile. Continue Flagyl. Appreciate infectious disease recommendations. 2. Pneumonia: Continue antibiotics, nebulizers, supplemental oxygen. 3. Acute versus chronic renal failure: BUN and creatinine are increased today. Continue IV fluids. 4. Elevated troponin: Likely secondary to combination of renal disease, sepsis. 5. Encephalopathy: Likely secondary to sepsis. Patient also apparently has history of dementia. 6. DVT prophylaxis: SCDs, KAREY muhammad. Problem Qualifiers (1) Pneumonia: Qualified Code: J18.1 - Pneumonia of right lower lobe due to infectious organism (2) Sepsis: Qualified Code: A41.9 - Sepsis, due to unspecified organism Trav Velez MD Feb 10, 2017 11:16
[2017-02-10 12:00] VITALS: BP 117/72; PULSE 92; RESP 19; TEMP 99.1; O2SAT 96
[2017-02-10 16:00] VITALS: BP 149/86; PULSE 106; RESP 19; TEMP 99.6; O2SAT 94
--- NOTE | 2017-02-10 16:12 | HHI.IDPN ---
Subjective Subjective Remarks ID Xcover for is an 86 y/o AAM ([place] by ) with Dementia who presented with worsening mentation and diagnosed with Pneumonia and Cdiff positive diarrhea. PM records from 2006 indicate no allergies no surgeries. ID following for PNA and Cdiff present on admission. Antibiotics Ceftriaxone IV (for CAP) Flagyl oral (cdiff and anaerobic coverage) Azithro (atypical coverage) Lines Line sites with no e.o infection Past Medical History Dementia. Allergies: Coded Allergies: No Known Allergies (Verified , 11/22/06) UNOBTAINABLE (Unverified , 02/09/17) Objective . Vital Signs Date Time Temp Pulse Resp B/P Pulse Ox O2 Delivery O2 Flow Rate FiO2 02/10/17 12:00 99.1 92 19 117/72 96 02/10/17 08:00 100.4 110 16 158/83 94 02/10/17 05:11 101.2 115 19 158/77 97 02/10/17 00:28 103.4 65 20 135/82 95 02/09/17 20:15 102.7 96 20 139/80 94 02/09/17 16:34 96.5 96 20 161/92 95 02/09/17 02/09/17 02/10/17 15:00 23:00 07:00 Intake Total 893 ml 573 ml Output Total 1 ml Balance 893 ml 572 ml Intake Oral 60 ml IV Total 893 ml 513 ml Stool Total 1 ml Bladder Scan Volume Amount 176 ml # Voids 5 2 # Bowel Movements 1 2 . Laboratory Tests Test 02/09/17 02/10/17 06:35 06:09 White Blood Count 8.0 TH/MM3 10.3 TH/MM3 Red Blood Count 4.07 MIL/MM3 4.50 MIL/MM3 Hemoglobin 12.1 GM/DL 13.5 GM/DL Hematocrit 36.1 % 39.5 % Mean Corpuscular Volume 88.6 FL 87.8 FL Mean Corpuscular Hemoglobin 29.6 PG 30.0 PG Mean Corpuscular Hemoglobin 33.4 % 34.2 % Concent Red Cell Distribution Width 14.8 % 15.7 % Platelet Count 115 TH/MM3 128 TH/MM3 Mean Platelet Volume 10.2 FL 9.8 FL Neutrophils (%) (Auto) 78.8 % 86.7 % Lymphocytes (%) (Auto) 13.0 % 8.3 % Monocytes (%) (Auto) 7.8 % 4.7 % Eosinophils (%) (Auto) 0.1 % 0.0 % Basophils (%) (Auto) 0.3 % 0.3 % Neutrophils # (Auto) 6.3 TH/MM3 9.0 TH/MM3 Lymphocytes # (Auto) 1.0 TH/MM3 0.9 TH/MM3 Monocytes # (Auto) 0.6 TH/MM3 0.5 TH/MM3 Eosinophils # (Auto) 0.0 TH/MM3 0.0 TH/MM3 Basophils # (Auto) 0.0 TH/MM3 0.0 TH/MM3 CBC Comment AUTO DIFF DIFF FINAL Differential Total Cells 100 Counted Neutrophils % (Manual) 52 % Band Neutrophils % 28 % Lymphocytes % 10 % Monocytes % 7 % Neutrophils # (Manual) 6.6 TH/MM3 Metamyelocytes 2 % Myelocytes 1 % Differential Comment FINAL DIFF MANUAL Platelet Estimate LOW Platelet Morphology Comment NORMAL Ovalocytes 3+ Laboratory Tests Test 02/09/17 02/10/17 06:35 06:09 Sodium Level 138 MEQ/L 142 MEQ/L Potassium Level 3.8 MEQ/L 3.8 MEQ/L Chloride Level 104 MEQ/L 107 MEQ/L Carbon Dioxide Level 24.7 MEQ/L 25.1 MEQ/L Anion Gap 9 MEQ/L 10 MEQ/L Blood Urea Nitrogen 23 MG/DL 26 MG/DL Creatinine 1.77 MG/DL 2.13 MG/DL Estimat Glomerular Filtration 45 ML/MIN 36 ML/MIN Rate Random Glucose 92 MG/DL 101 MG/DL Calcium Level 8.1 MG/DL 8.2 MG/DL Phosphorus Level 2.1 MG/DL Magnesium Level 1.8 MG/DL Microbiology Date/Time Procedure Status Source Growth 02/07/17 20:00 Aerobic Blood Culture - Preliminary Resulted Blood Peripheral NO GROWTH IN 3 DAYS 02/07/17 20:00 Anaerobic Blood Culture - Preliminary Resulted Blood Peripheral NO GROWTH IN 3 DAYS 02/07/17 20:05 Aerobic Blood Culture - Preliminary Resulted Blood Peripheral NO GROWTH IN 3 DAYS 02/07/17 20:05 Anaerobic Blood Culture - Preliminary Resulted Blood Peripheral NO GROWTH IN 3 DAYS 02/09/17 10:35 Aerobic Blood Culture - Preliminary Resulted Blood Peripheral NO GROWTH IN 1 DAY 02/09/17 10:35 Anaerobic Blood Culture - Preliminary Resulted Blood Peripheral NO GROWTH IN 1 DAY 02/09/17 10:42 Aerobic Blood Culture - Preliminary Resulted Blood Peripheral NO GROWTH IN 1 DAY 02/09/17 10:42 Anaerobic Blood Culture - Preliminary Resulted Blood Peripheral NO GROWTH IN 1 DAY Imaging Last Impressions Chest X-Ray 02/09/17 0000 Signed Impressions: Service Date/Time: Thursday, February 09, 2017 12:49 - CONCLUSION: Increasing consolidative changes right lung base. Arya Horton MD FACR Head CT 02/07/17 194 Signed Impressions: Service Date/Time: Tuesday, February 07, 2017 20:03 - CONCLUSION: No acute intracranial injury Tra Garibay MD Physical Exam GENERAL: This is a thin, well-developed male, awake and alert, but very poor orientation. He looks comfortable at rest. SKIN: Warm and dry, no generalized rash or ecchymosis. HEAD: Atraumatic. Normocephalic. No temporal or scalp tenderness. EYES: [place] conjunctivae. Pupils equal round and reactive. Extraocular motions intact. No scleral icterus. No injection or drainage. ENT: Nose without bleeding, or purulent drainage. Moist oral mucosa, edentulous , and he is wearing upper and lower dentures. Throat without erythema, or exudate. Uvula midline. Airway patent. NECK: Trachea midline. Supple, nontender, no meningeal signs. CARDIOVASCULAR: RRR RESPIRATORY: Bibasilar crackles. Decreased air entry in bases. GASTROINTESTINAL: Abdomen soft, flat, non-tender, nondistended. Bowel sounds are present and normoactive. No guarding. No rebound. MUSCULOSKELETAL: Extremities without clubbing, cyanosis, or edema. No joint effusion, good ROM. No calf tenderness. NEUROLOGICAL: Awake and alert. Grossly non focal. LINE: PIV with no evidence of infection Assessment & Plan Remarks Pneumonia present on admission: likely aspiration in setting of dementia. Possible CAP or atypical Cdiff positive diarrhea Ongoing aspiration. Dementia Acute metabolic encephalopathy Persistent fevers: Concomitant antibiotics for Pneumonia ppting Cdiff, ongoing aspiration. Recs Continue Ceftriaxone IV Continue flagyl oral Continue Azithro oral. Swallow eval by ST. Consider NPO or bedside swallow eval. Consult palliative care to address goals of therapy (code status, possible need for PEG in view of ongoing aspiration) d/w . Jayshree Arroyo MD Feb 10, 2017 16:12
[2017-02-10] MEDS: AZITHROMYCIN 250 MG TAB PO SCH (21:41)
[2017-02-10] MEDS: cefTRIAXone INJ 1,000 MG in SODIUM CHLORIDE 0.9% INJ 100 ML IV SCH (21:42)
[2017-02-10] MEDS: ACETAMINOPHEN 500 MG CPLT PO PRN (21:44)
[2017-02-10 21:45] VITALS: BP 160/90; PULSE 78; RESP 20; TEMP 100.1; O2SAT 94
[2017-02-11 00:20] VITALS: BP 118/69; PULSE 105; RESP 21; TEMP 98.9; O2SAT 98
[2017-02-11] MEDS: metroNIDAZOLE 500 MG TAB PO SCH ×3 (01:05→16:00)
[2017-02-11 04:30] VITALS: BP 152/87; PULSE 114; RESP 22; TEMP 98.2; O2SAT 93
[2017-02-11] MEDS: SODIUM CHLOR 0.9% 1000 ML INJ 1,000 ML IV SCH (05:27)
[2017-02-11 08:00] VITALS: BP 147/83; PULSE 118; RESP 19; TEMP 100.4; O2SAT 93
[2017-02-11 08:47] LABS: POTASSIUM 3.9 MEQ/L (3.5-5.1)
[2017-02-11] MEDS: hydrALAZINE HCL 50 MG TAB PO SCH ×2 (09:00→21:00)
[2017-02-11] MEDS: METOPROLOL SUCCINATE 50 MG EXTENDED RELEASE TAB PO SCH (09:00)
[2017-02-11] MEDS: LACTOBACILLUS ACIDOPHILUS TAB PO SCH ×3 (09:00→18:00)
[2017-02-11] MEDS: LOSARTAN 50 MG TAB PO SCH (09:00)
[2017-02-11] MEDS: ACETAMINOPHEN 650 MG SUPP RECTAL PRN (09:44)
--- NOTE | 2017-02-11 09:55 | HHI.PR ---
Subjective Remarks Follow-up fever, sepsis, mental status change. The patient appears to be having difficulty swallowing. He is alert, but refuses to answer questions today. Still with intermittent low-grade fevers. Objective Vitals Vital Signs Date Time Temp Pulse Resp B/P Pulse Ox O2 Delivery O2 Flow Rate FiO2 02/11/17 08:00 100.4 118 19 147/83 93 02/11/17 04:30 98.2 114 22 152/87 93 02/11/17 00:20 98.9 105 21 118/69 98 02/10/17 21:45 100.1 78 20 160/90 94 02/10/17 16:00 99.6 106 19 149/86 94 02/10/17 12:00 99.1 92 19 117/72 96 I/O 02/10/17 02/10/17 02/10/17 02/11/17 02/11/17 02/11/17 07:00 15:00 23:00 07:00 15:00 23:00 Intake Total 573 ml 120 ml 300 ml Output Total 1 ml Balance 572 ml 120 ml 300 ml Intake Oral 60 ml 120 ml 300 ml IV Total 513 ml Stool Total 1 ml # Voids 2 2 # Bowel Movements 2 0 Result Diagram: 02/10/17 0609 02/11/17 0703 Imaging Last Impressions Chest X-Ray 02/09/17 0000 Signed Impressions: Service Date/Time: Thursday, February 09, 2017 12:49 - CONCLUSION: Increasing consolidative changes right lung base. Arya Horton MD FACR Head CT 02/07/171946 Signed Impressions: Service Date/Time: Tuesday, February 07, 2017 20:03 - CONCLUSION: No acute intracranial injury Tra Garibay MD Objective Remarks General: Thin elderly male in no acute distress. Heart: Tachycardic. No murmur. Lungs: Clear to auscultation bilaterally. No wheezes, rales, or rhonchi. Breathing is nonlabored. Abdomen: Soft, nontender, nondistended. Extremities: No lower extremity edema. Psych: Alert. Does not answer questions. Procedures None Urinary Catheter: No Vascular Central Line Catheter: No A/P Problem List: (1) Pneumonia ICD Code: J18.9 Status: Acute (2) Sepsis ICD Code: A41.9 Status: Acute (3) Renal insufficiency ICD Code: N28.9 Status: Acute (4) Elevated troponin I level ICD Code: R74.8 Status: Acute (5) Encephalopathy ICD Code: G93.40 Status: Acute (6) Clostridium difficile infection ICD Code: B96.89 Status: Acute (7) Dysphagia ICD Code: R13.10 Status: Acute Assessment and Plan 1. Sepsis secondary to right middle lobe pneumonia, C. difficile: Continue IV antibiotics. Blood cultures are negative so far. Patient remains febrile. Continue Flagyl. Appreciate infectious disease recommendations. ?aspiration 2. Pneumonia: Continue antibiotics, nebulizers, supplemental oxygen. 3. Acute versus chronic renal failure: BUN and creatinine are increased today. Continue IV fluids. 4. Elevated troponin: Likely secondary to combination of renal disease, sepsis. 5. Encephalopathy: Likely secondary to sepsis. Patient also apparently has history of dementia. May be a language barrier, although patient has answered questions in [place] and has not indicated another primary language when asked. 6. DVT prophylaxis: SCDs, KAREY muhammad. 7. Dysphagia: Patient appears to be having difficulty swallowing. Possible aspiration. Speech therapy swallow eval requested. NPO. Problem Qualifiers (1) Pneumonia: Qualified Code: J18.1 - Pneumonia of right lower lobe due to infectious organism (2) Sepsis: Qualified Code: A41.9 - Sepsis, due to unspecified organism Trav Velez MD Feb 11, 2017 09:55
[2017-02-11] MEDS: SODIUM CHLOR 0.45% 1000 ML INJ 1,000 ML IV SCH (09:57)
[2017-02-11 12:00] VITALS: BP 113/59; PULSE 86; RESP 18; TEMP 97.5; O2SAT 93
[2017-02-11 16:00] VITALS: BP 155/57; PULSE 108; RESP 19; TEMP 99.1; O2SAT 97
[2017-02-11] MEDS: AZITHROMYCIN 250 MG TAB PO SCH (21:00)
[2017-02-11] MEDS: cefTRIAXone INJ 1,000 MG in SODIUM CHLORIDE 0.9% INJ 100 ML IV SCH (21:23)
[2017-02-11 21:50] VITALS: BP 138/80; PULSE 120; RESP 23; TEMP 99.1; O2SAT 93
[2017-02-12] VITALS (11 sets, daily range): BP systolic 96–160; BP diastolic 56–101; PULSE 80–148; RESP 15–24; TEMP 97.4–100.8; O2SAT 83–96
[2017-02-12] MEDS: metroNIDAZOLE 500 MG TAB PO SCH
[2017-02-12] MEDS: ACETAMINOPHEN 650 MG SUPP RECTAL PRN (01:37)
[2017-02-12] MEDS: SODIUM CHLOR 0.45% 1000 ML INJ 1,000 ML IV SCH (03:53)
[2017-02-12 07:30] LABS: AUTOMATED NEUTROPHIL # 7.2 TH/MM3 (1.8-7.7); BASOPHIL % 0.2 % (0.0-2.0); EOSINOPHIL % 0.1 % (0.0-4.0); HEMATOCRIT 36.2 % (39.0-51.0); HEMO FLAGS DIFF FINAL; LYMPHOCYTE # 1.1 TH/MM3 (1.0-4.8); MEAN CORPUSCULAR HEMOGLOBIN 29.9 PG (27.0-34.0); MEAN CORPUSCULAR HGB CONC 33.6 % (32.0-36.0); MONO % 9.1 % (0.0-8.0); NEUT % 78.6 % (16.0-70.0); PLATELET COUNT 144 TH/MM3 (150-450); RED BLOOD COUNT 4.07 MIL/MM3 (4.50-5.90); RED CELL DISTRIBUTION WIDTH 16.1 % (11.6-17.2); WHITE BLOOD COUNT 9.2 TH/MM3 (4.0-11.0)
[2017-02-12 07:46] LABS: BICARBONATE 20.3 MEQ/L (21.0-32.0); POTASSIUM 4.1 MEQ/L (3.5-5.1)
[2017-02-12] MEDS: LACTOBACILLUS ACIDOPHILUS TAB PO SCH ×3 (08:30→18:52)
[2017-02-12] MEDS: AZITHROMYCIN INJ 500 MG in SODIUM CHLOR 0.9% 250 ML INJ 250 ML IV SCH (08:58)
[2017-02-12] MEDS ORDERED: cloNIDine HCL 0.1 MG/24 HR PATCH T-DERMAL SCH (09:00)
[2017-02-12] MEDS: metroNIDAZOLE 500 MG INJ 100 ML IV SCH ×2 (10:04→20:06)
--- NOTE | 2017-02-12 10:49 | PD.CONS ---
[facility] Service Nephrology Consult Requested By Reason for Consult Acute Renal Failure Primary Care Physician History of Present Illness this is an 86 y/o AAM patient who was admitted on 02/08 after a fall with alerted mental status. He was diagnosed with pneumonia and C diff colitis. He is unable to give any history, apparently has a daughter but I have not been able to speak with her. Only known medical issue is dementia. His creatinine in 2006 was 1.7. On arrival it was 2.3, which improved to 1.7 but has subsequently increased to 2.27. He is lethargic, not taking PO fluids/food. He is on 0.45% NS for hydration. We were consulted for renal management. Palliative has been called as he will likely need a PEG tube and need to establish goals of treatment. Review of Systems ROS Limitations: Clinical Condition, Altered Mental Status Past Family Social History Allergies: Coded Allergies: No Known Allergies (Verified , 11/22/06) UNOBTAINABLE (Unverified , 02/09/17) Family History unable to obtain Social History unable to obtain lives with daughter or lives alone and daughter is nearby Physical Exam Vital Signs Vital Signs Date Time Temp Pulse Resp B/P Pulse Ox O2 Delivery O2 Flow Rate FiO2 02/12/17 09:25 96 Nasal Cannula 4.00 02/12/17 08:00 97.4 121 20 157/101 83 02/12/17 05:40 99.1 112 23 145/80 93 02/12/17 01:00 100.3 115 24 160/83 93 02/11/17 21:50 99.1 120 23 138/80 93 02/11/17 16:00 99.1 108 19 155/57 97 02/11/17 12:00 97.5 86 18 113/59 93 Laboratory Laboratory Tests Test 02/12/17 06:46 White Blood Count 9.2 Red Blood Count 4.07 Hemoglobin 12.2 Hematocrit 36.2 Mean Corpuscular Volume 89.0 Mean Corpuscular Hemoglobin 29.9 Mean Corpuscular Hemoglobin 33.6 Concent Red Cell Distribution Width 16.1 Platelet Count 144 Mean Platelet Volume 9.9 Neutrophils (%) (Auto) 78.6 Lymphocytes (%) (Auto) 12.0 Monocytes (%) (Auto) 9.1 Eosinophils (%) (Auto) 0.1 Basophils (%) (Auto) 0.2 Neutrophils # (Auto) 7.2 Lymphocytes # (Auto) 1.1 Monocytes # (Auto) 0.8 Eosinophils # (Auto) 0.0 Basophils # (Auto) 0.0 CBC Comment DIFF FINAL Differential Comment Sodium Level 147 Potassium Level 4.1 Chloride Level 114 Carbon Dioxide Level 20.3 Anion Gap 13 Blood Urea Nitrogen 37 Creatinine 2.27 Estimat Glomerular Filtration 33 Rate Random Glucose 90 Calcium Level 8.5 Date/Time Procedure Status Source Growth 02/09/17 10:42 Aerobic Blood Culture - Preliminary Resulted Blood Peripheral NO GROWTH IN 2 DAYS 02/09/17 10:42 Anaerobic Blood Culture - Preliminary Resulted Blood Peripheral NO GROWTH IN 2 DAYS Result Diagram: 02/12/17 0646 02/12/17 0646 Juliana Saravia Feb 12, 2017 10:49
--- NOTE | 2017-02-12 10:57 | HHI.IDPN ---
Subjective Subjective Remarks Notes reviewed Still having fevers Swallowing eval noted PO intake poor Creatinine rising Bladder scan 176 ml WBC normal BC negative Last CXR 02/09 increased consolidation base R is an 86 y/o AAM (Herber by ) with Dementia who presented with worsening mentation and diagnosed with Pneumonia and Cdiff positive diarrhea. PM records from 2006 indicate no allergies no surgeries. ID following for PNA and Cdiff present on admission. Antibiotics Ceftriaxone IV (for CAP) Flagyl IV (cdiff and anaerobic coverage) Azithro (atypical coverage) Lines Line sites with no e.o infection Past Medical History Dementia. Allergies: Coded Allergies: No Known Allergies (Verified , 11/22/06) UNOBTAINABLE (Unverified , 02/09/17) Objective . Vital Signs Date Time Temp Pulse Resp B/P Pulse Ox O2 Delivery O2 Flow Rate FiO2 02/12/17 09:25 96 Nasal Cannula 4.00 02/12/17 08:00 97.4 121 20 157/101 83 02/12/17 05:40 99.1 112 23 145/80 93 02/12/17 01:00 100.3 115 24 160/83 93 02/11/17 21:50 99.1 120 23 138/80 93 02/11/17 16:00 99.1 108 19 155/57 97 02/11/17 12:00 97.5 86 18 113/59 93 02/11/17 02/11/17 02/12/17 15:00 23:00 07:00 Intake Total 0 ml 0 ml Balance 0 ml 0 ml Intake Oral 0 ml 0 ml # Voids 3 1 2 # Bowel Movements 2 0 0 . Laboratory Tests Test 02/12/17 06:46 White Blood Count 9.2 TH/MM3 Red Blood Count 4.07 MIL/MM3 Hemoglobin 12.2 GM/DL Hematocrit 36.2 % Mean Corpuscular Volume 89.0 FL Mean Corpuscular Hemoglobin 29.9 PG Mean Corpuscular Hemoglobin 33.6 % Concent Red Cell Distribution Width 16.1 % Platelet Count 144 TH/MM3 Mean Platelet Volume 9.9 FL Neutrophils (%) (Auto) 78.6 % Lymphocytes (%) (Auto) 12.0 % Monocytes (%) (Auto) 9.1 % Eosinophils (%) (Auto) 0.1 % Basophils (%) (Auto) 0.2 % Neutrophils # (Auto) 7.2 TH/MM3 Lymphocytes # (Auto) 1.1 TH/MM3 Monocytes # (Auto) 0.8 TH/MM3 Eosinophils # (Auto) 0.0 TH/MM3 Basophils # (Auto) 0.0 TH/MM3 CBC Comment DIFF FINAL Differential Comment Laboratory Tests Test 02/11/17 02/12/17 07:03 06:46 Sodium Level 147 MEQ/L 147 MEQ/L Potassium Level 3.9 MEQ/L 4.1 MEQ/L Chloride Level 114 MEQ/L 114 MEQ/L Carbon Dioxide Level 23.0 MEQ/L 20.3 MEQ/L Anion Gap 10 MEQ/L 13 MEQ/L Blood Urea Nitrogen 32 MG/DL 37 MG/DL Creatinine 2.19 MG/DL 2.27 MG/DL Estimat Glomerular Filtration 35 ML/MIN 33 ML/MIN Rate Random Glucose 94 MG/DL 90 MG/DL Calcium Level 8.1 MG/DL 8.5 MG/DL Imaging Last Impressions Chest X-Ray 02/09/17 0000 Signed Impressions: Service Date/Time: Thursday, February 09, 2017 12:49 - CONCLUSION: Increasing consolidative changes right lung base. Arya Horton MD FACR Head CT 02/07/171946 Signed Impressions: Service Date/Time: Tuesday, February 07, 2017 20:03 - CONCLUSION: No acute intracranial injury Tra Garibay MD Physical Exam GENERAL: Awake and alert, NAD, looks frail. NAd at rest SKIN: Warm and dry, no generalized rash or ecchymosis. HEENT: [place] conjunctivae. No scleral icterus. No injection or drainage. Nose without purulent drainage. Moist oral mucosa, edentulous, and he is wearing upper and lower dentures. NECK: Trachea midline. Supple, nontender, no meningeal signs. CARDIOVASCULAR: RRR RESPIRATORY: Bibasilar crackles. Decreased air entry in bases. GASTROINTESTINAL: Abdomen soft, flat, non-tender, nondistended. Bowel sounds are present and normoactive. No guarding. No rebound. MUSCULOSKELETAL: Extremities without clubbing, cyanosis, or edema. No joint effusion, good ROM. No calf tenderness. NEUROLOGICAL: Awake and alert. Grossly non focal. LINE: PIV with no evidence of infection Assessment & Plan Remarks Pneumonia present on admission: likely aspiration in setting of dementia. Possible CAP or atypical Cdiff positive diarrhea Ongoing aspiration. Dementia Acute metabolic encephalopathy Persistent fevers: Concomitant antibiotics for Pneumonia ppting Cdiff, ongoing aspiration. Renal insufficiency, worsening, likely multifactorail RECOMMENDATION Continue Ceftriaxone IV Continue flagyl, currently being given IV due to aspiration porblem Continue Azithro oral. On NPO Needs hydration Check legionella and pneumococcal Ag Follow temps Monitor progress Consult palliative care to address goals of therapy (code status, possible need for PEG in view of ongoing aspiration) Tricia Garcia MD Feb 12, 2017 10:56
[2017-02-12] MEDS ORDERED: DEXTROSE 5% IN WATE 1000ML INJ 1,000 ML IV SCH (12:00)
[2017-02-12] MEDS ORDERED: RESP: ALBUTEROL 2.5 MG/IPRATROPIUM 0.5 MG NEB (SCH) NEB (12:00)
[2017-02-12 13:10] LABS: BLOOD GAS BASE EXCESS -6.4 mmol/L (-2-2); BLOOD GAS CARBOXYHEMOGLOBIN 0.9 % (0-4); BLOOD GAS HCO3 18 mmol/L (22-26); BLOOD GAS METHEMOGLOBIN 0.7 % (0-2); BLOOD GAS O2 HGB SATURATION 92 % (90-100); BLOOD GAS OXYGEN CONTENT 15.7 Vol % (12.0-20.0); BLOOD GAS PCO2 33 mmHg (38-42); BLOOD GAS PO2 74 mmHg (61-120); BLOOD GAS TOTAL HGB 12.1 G/DL (12.0-16.0); CRITICAL VALUE NO; DRAW SITE RT RADIAL; FIO2 100 %; NUMBER OF ARTERIAL PUNCTURES 1; OXYGEN DEVICE NRB; STAT NO; TEMP CORR TO 98.6; ULNAR PULSE PRESENT
[2017-02-12] MEDS ORDERED: BUMETANIDE INJ 1 MG/4 ML VIAL IV PUSH ONE (13:15)
--- NOTE | 2017-02-12 13:16 | HHI.PR ---
Subjective Remarks HALICAT called due to respiratory distress. Patient with O2 sat 79%. Improved to 94%, but required 10L oxygen per mask. Patient not answering questions. Concern for aspiration. Objective Vitals Vital Signs Date Time Temp Pulse Resp B/P Pulse Ox O2 Delivery O2 Flow Rate FiO2 02/12/17 09:25 96 Nasal Cannula 4.00 02/12/17 08:00 97.4 121 20 157/101 83 02/12/17 05:40 99.1 112 23 145/80 93 02/12/17 01:00 100.3 115 24 160/83 93 02/11/17 21:50 99.1 120 23 138/80 93 02/11/17 16:00 99.1 108 19 155/57 97 I/O 02/11/17 02/11/17 02/11/17 02/12/17 02/12/17 02/12/17 07:00 15:00 23:00 07:00 15:00 23:00 Intake Total 300 ml 0 ml 0 ml Balance 300 ml 0 ml 0 ml Intake Oral 300 ml 0 ml 0 ml # Voids 2 3 1 2 # Bowel Movements 0 2 0 0 Result Diagram: 02/12/17 0646 02/12/17 0646 Imaging Last Impressions Chest X-Ray 02/09/17 0000 Signed Impressions: Service Date/Time: Thursday, February 09, 2017 12:49 - CONCLUSION: Increasing consolidative changes right lung base. Arya Horton MD FACR Head CT 02/07/171946 Signed Impressions: Service Date/Time: Tuesday, February 07, 2017 20:03 - CONCLUSION: No acute intracranial injury Tra Garibay MD Objective Remarks General: Thin elderly male in moderate distress. Heart: Tachycardic. No murmur. Lungs: Breathing is labored. Scattered rhonchi, crackles. Abdomen: Soft, nontender, nondistended. Extremities: No lower extremity edema. Psych: Alert. Does not answer questions. Procedures None Urinary Catheter: No Vascular Central Line Catheter: No A/P Problem List: (1) Pneumonia ICD Code: J18.9 Status: Acute (2) Sepsis ICD Code: A41.9 Status: Acute (3) Elevated troponin I level ICD Code: R74.8 Status: Acute (4) Encephalopathy ICD Code: G93.40 Status: Acute (5) Clostridium difficile infection ICD Code: B96.89 Status: Acute (6) Dysphagia ICD Code: R13.10 Status: Acute (7) Acute respiratory failure ICD Code: J96.00 Status: Acute (8) Acute renal failure ICD Code: N17.9 Status: Acute Assessment and Plan 1. Sepsis secondary to right middle lobe pneumonia, C. difficile: Continue IV antibiotics. Blood cultures are negative so far. Patient remains febrile. Continue Flagyl. Appreciate infectious disease recommendations. ?aspiration 2. Pneumonia: Continue antibiotics, nebulizers, supplemental oxygen. 3. Acute versus chronic renal failure: BUN and creatinine are increasing. Appreciate nephrology recommendations. 4. Elevated troponin: Likely secondary to combination of renal disease, sepsis. Consult cardiology. 5. Encephalopathy: Likely secondary to sepsis. Patient also apparently has history of dementia. May be a language barrier, although patient has answered questions in [place]ian and has not indicated another primary language when asked. 6. DVT prophylaxis: SCDs, KAREY hose. 7. Dysphagia: Patient appears to be having difficulty swallowing. Possible aspiration. Speech therapy swallow eval requested. NPO. 8. Acute respiratory failure: [facility] [place]. [place] [facility] [place] I spoke [place] Dr. Demarco, critical care, who will evaluate the patient. ABG ordered. Repeat CXR. Bumex IV. Possible aspiration. Palliative care consult is pending. Problem Qualifiers (1) Pneumonia: Qualified Code: J18.1 - Pneumonia of right lower lobe due to infectious organism (2) Sepsis: Qualified Code: A41.9 - Sepsis, due to unspecified organism Trav Velez MD Feb 12, 2017 13:16
--- NOTE | 2017-02-12 13:35 | PD.CONS ---
Consult Service Palliative Care Consult Requested By Alireza Arroyo Primary Care Physician Reason for Consultation a. To assist with evaluation and management of symptoms including:dyspnea b. To assist medical decision maker(s) with: better understanding of current medical conditions; weighing benefits/burdens of medical treatment options; making medical treatment decisions. (Josephine Whalen) HPI History of Present Illness This is an elderly year old [facility] male with history of dementia, alert only to self brought to the emergency room after his daughter found him to be weak and stumbling while walking. Per EMS, he fallen into a glass table on but did not fall to the ground or hit his head. He was found to be febrile by EMS. On initial exam, he was found to be febrile with a temp of 102.7. He was found to have leukocytosis, blood cultures were all ordered and continue to be pending. He was felt to have bronchopneumonia on CXR of February 07, 2017. However, his chest x-ray of 02/09/2017 found increasing consolidations in the right lung base. He was started on antibiotics, nebulizers and oxygen. Infectious disease was consult. Of significance, he did have 2 episodes of diarrhea and was positive for C. difficile. Over his hospital course, his renal status has declined with acute on chronic renal injury.Information is attained only from clinical record as no family was present. A DPOA was found in the clinical chart - however, it fails to address health care issues. Corby HOLLAND was called for respiratory distress with an O2 Sat of 79%. He was found to be in A fib w RVR and was transfered [place] [facility] [place] At the time of my visit, he was awake and attempting to talk- words were incomprehensible. He is dyspneic with a non-rebreather. He will follow some commands. It was also felt that he may possibly have aspirated on 02/11/17. Several calls were placed to his daughter - and messages was left. In discussion with the police specialist and in light of his declining respiratory status w A Fib RVR - he was subsequently medicated, intubated then cardioverted. (Josephine Whalen) Review of Systems ROS Limitations: Clinical Condition, Altered Mental Status (pt has dementia and currently w respiratroy distress. ), Poor Historian (Josephine Whalen) Past Family Social History Coded Allergies: No Known Allergies (Verified , 11/22/06) UNOBTAINABLE (Unverified , 02/09/17) Past Medical History Unable to obtain past medical history other than that the patient suffers from dementia . Past Surgical History Unable to obtain . Reported Medications none reported Current Medications Medications (Trade) Dose Ordered Sig/Connor Route Start Time Stop Time Status Last Admin (Zofran Inj) 4 mg Q8H PRN IV PUSH 02/07/17 21:45 (Apresoline) 50 mg BID PO 02/08/17 21:00 Hold 02/10/17 21:41 (Cozaar) 100 mg DAILY PO 02/09/17 09:00 Hold 02/10/17 10:27 (Toprol Xl) 50 mg DAILY PO 02/08/17 13:00 Hold 02/10/17 10:27 (Tylenol) 500 mg Q4H PRN PO 02/08/17 13:15 02/10/17 21:44 (Lactinex) 1 tab TID PO 02/09/17 13:00 02/10/17 18:26 Acetaminophen 650 mg 650 mg Q4H PRN RECTAL 02/10/17 01:00 02/12/17 01:37 (Flagyl 500 Mg Inj) 100 ml @ 100 mls/hr Q8H IV 02/12/17 08:00 02/12/17 10:04 Clonidine 1 patch 1 patch Q7D T-DERMAL 02/12/17 09:00 02/12/17 10:04 Azithromycin 500 mg/Sodium Chloride 250 ml @ 250 mls/hr Q24H IV 02/12/17 09:00 02/12/17 08:58 Dextrose 1,000 ml @ 75 mls/hr [id number] IV 02/12/17 12:00 (Maxipime Inj/NS Inj) 100 ml @ 200 mls/hr Q12H IV 02/12/17 13:30 UNV Family History Unable to obtain due to he patients clinical status and no family available . Substance Use Tobacco: records indicate none Alcohol: Prescription med abuse: Illicits: Psychosocial History , Born in [facility], retired, Spiritual/Cultural Factors unknown (Josephine Whalen) Durable Power of Printing Sales Representative: Copy in medical record Health Care Surrogate(s): Laurita Lopes, daughter, (Josephine WhalenRhea CADET) Physical Exam Vital Signs Date Time Temp Pulse Resp B/P Pulse Ox O2 Delivery O2 Flow Rate FiO2 02/12/17 09:25 96 Nasal Cannula 4.00 02/12/17 08:00 97.4 121 20 157/101 83 02/12/17 05:40 99.1 112 23 145/80 93 02/12/17 01:00 100.3 115 24 160/83 93 02/11/17 21:50 99.1 120 23 138/80 93 02/11/17 16:00 99.1 108 19 155/57 97 02/11/17 02/12/17 19:00 07:00 Intake Total 0 ml Balance 0 ml Intake Oral 0 ml # Voids 3 3 # Bowel Movements 2 0 Exam CONSTITUTIONAL/GENERAL: This is a thin, frail elderly male in respiratory distress TUBES/LINES/DRAINS: IV line SKIN: No jaundice, rashes, or lesions. Ecchymoses on upper extremities. No wounds seen anteriorly. Skin temperature appropriate. Not diaphoretic. HEAD: Atraumatic. Normocephalic. EYES: Pupils equal and round and reactive. Extraocular motions intact. No scleral icterus. No injection or drainage. Fundi not examined. ENT: Hearing grossly normal. Nose without bleeding or purulent drainage. Throat without visible erythema, exudates, masses, or lesions. NECK: Trachea midline. Supple, nontender. No palpable thyroid enlargement or nodularity. CARDIOVASCULAR: Irregular rate and rhythm, w RVR and intermitted PVC's. no murmurs, gallops, or rubs. No JVD. Peripheral pulses symmetric. RESPIRATORY/CHEST: Extremely course breath sounds anteriorly, diminished posteriorly; wheezes, and rhonchi. GASTROINTESTINAL: Abdomen soft, non-tender, nondistended. No hepato-splenomegaly , or palpable masses. No guarding. Bowel sounds present. GENITOURINARY: Without palpable bladder distension. male catheter MUSCULOSKELETAL: Extremities without clubbing, cyanosis, or edema. No joint tenderness or effusion noted. No calf tenderness. No mottling or clubbing. LYMPHATICS: No palpable cervical or supraclavicular adenopathy. NEUROLOGICAL: Awake and alert, oriented to self. . Motor and sensory appear to be within normal limits. Follows commands. Demented, Moves all extremities. PSYCHIATRIC: unable to evaluate (Josephine Whalen) Diagnostic Tests Laboratory Laboratory Tests Test 02/10/17 02/11/17 02/12/17 02/12/17 06:09 07:03 06:46 12:55 White Blood Count 10.3 TH/MM3 9.2 TH/MM3 (4.0-11.0) (4.0-11.0) Red Blood Count 4.50 MIL/MM3 4.07 MIL/MM3 (4.50-5.90) (4.50-5.90) Hemoglobin 13.5 GM/DL 12.2 GM/DL (13.0-17.0) (13.0-17.0) Hematocrit 39.5 % 36.2 % (39.0-51.0) (39.0-51.0) Mean Corpuscular Volume 87.8 FL 89.0 FL (80.0-100.0) (80.0-100.0) Mean Corpuscular Hemoglobin 30.0 PG 29.9 PG (27.0-34.0) (27.0-34.0) Mean Corpuscular Hemoglobin 34.2 % 33.6 % Concent (32.0-36.0) (32.0-36.0) Red Cell Distribution Width 15.7 % 16.1 % (11.6-17.2) (11.6-17.2) Platelet Count 128 TH/MM3 144 TH/MM3 (150-450) (150-450) Mean Platelet Volume 9.8 FL 9.9 FL (7.0-11.0) (7.0-11.0) Neutrophils (%) (Auto) 86.7 % 78.6 % (16.0-70.0) (16.0-70.0) Lymphocytes (%) (Auto) 8.3 % 12.0 % (9.0-44.0) (9.0-44.0) Monocytes (%) (Auto) 4.7 % (0.0-8.0) 9.1 % (0.0-8.0) Eosinophils (%) (Auto) 0.0 % (0.0-4.0) 0.1 % (0.0-4.0) Basophils (%) (Auto) 0.3 % (0.0-2.0) 0.2 % (0.0-2.0) Neutrophils # (Auto) 9.0 TH/MM3 7.2 TH/MM3 (1.8-7.7) (1.8-7.7) Lymphocytes # (Auto) 0.9 TH/MM3 1.1 TH/MM3 (1.0-4.8) (1.0-4.8) Monocytes # (Auto) 0.5 TH/MM3 0.8 TH/MM3 (0-0.9) (0-0.9) Eosinophils # (Auto) 0.0 TH/MM3 0.0 TH/MM3 (0-0.4) (0-0.4) Basophils # (Auto) 0.0 TH/MM3 0.0 TH/MM3 (0-0.2) (0-0.2) CBC Comment DIFF FINAL DIFF FINAL Differential Comment Sodium Level 142 MEQ/L 147 MEQ/L 147 MEQ/L (136-145) (136-145) (136-145) Potassium Level 3.8 MEQ/L 3.9 MEQ/L 4.1 MEQ/L (3.5-5.1) (3.5-5.1) (3.5-5.1) Chloride Level 107 MEQ/L 114 MEQ/L 114 MEQ/L (98-107) (98-107) (98-107) Carbon Dioxide Level 25.1 MEQ/L 23.0 MEQ/L 20.3 MEQ/L (21.0-32.0) (21.0-32.0) (21.0-32.0) Anion Gap 10 MEQ/L (5-15) 10 MEQ/L (5-15) 13 MEQ/L (5-15) Blood Urea Nitrogen 26 MG/DL (7-18) 32 MG/DL (7-18) 37 MG/DL (7-18) Creatinine 2.13 MG/DL 2.19 MG/DL 2.27 MG/DL (0.60-1.30) (0.60-1.30) (0.60-1.30) Estimat Glomerular Filtration 36 ML/MIN (>89) 35 ML/MIN (>89) 33 ML/MIN (>89) Rate Random Glucose 101 MG/DL 94 MG/DL 90 MG/DL (74-106) (74-106) (74-106) Calcium Level 8.2 MG/DL 8.1 MG/DL 8.5 MG/DL (8.5-10.1) (8.5-10.1) (8.5-10.1) Blood Gas Puncture Site RT RADIAL Blood Gas Patient Temperature 98.6 Blood Gas HCO3 18 mmol/L (22-26) Blood Gas Base Excess -6.4 mmol/L (-2-2) Blood Gas Oxygen Saturation 92 % (90-100) Arterial Blood pH 7.36 (7.380-7.420) Arterial Blood Partial 33 mmHg (38-42) Pressure CO2 Arterial Blood Partial 74 mmHg Pressure O2 (61-120) Arterial Blood Oxygen Content 15.7 Vol % (12.0-20.0) Arterial Blood 0.9 % (0-4) Carboxyhemoglobin Arterial Blood Methemoglobin 0.7 % (0-2) Blood Gas Hemoglobin 12.1 G/DL (12.0-16.0) Oxygen Delivery Device NRB Blood Gas Inspired Oxygen 100 % (Josephine Whalen) Result Diagram: 02/12/17 0646 02/12/17 0646 Microbiology 02/08/17- + C Diff (Josephine Whalen) Patient/Family Conference Issues Discussed: * Palliative care role, purpose, approach * Additional medical, psychosocial, and spiritual history * Patients general health, functional status, and cognitive changes in the months leading up to the current hospitalization * Patient/family understanding of the current medical problems * Patient/family understanding of prognosis * Patients goals of care as best understood from advance directives and/or conversations and/or values * Current medical treatment options and benefits/burdens of those options * Likely scenarios comparing ongoing aggressive care with a transition to comfort measures only * Questions answered to the best of my ability * Palliative care contact information provided (Josephine Whalen) Assessment and Plan Disease Oriented Problem List: (1) Acute respiratory failure (2) Acute renal failure (3) Clostridium difficile infection (4) Sepsis Symptom Scale: (1) Dyspnea Pertinent Non-Medical Issues Psychosocial: Spiritual: unknown Legal: His daughter Laurita is shown as DPOA - but there is no indication of health care decisions. I have yet to talk w her to determine if there is other family. Ethical issues impacting care: Plan Decision Maker: Daughter - Laurita Lopes [phone] Code Status: full code Family Discussion: Symptoms: dyspnea Palliative care phone number provided - will follow during hospital stay. ( Josephine Whalen) Thank you for the opportunity to participate in the care of Mr. Morgan. (Josephine Whalen) Attestation To help prompt me to consider important information that might be impacting today's encounter and assessment, information from prior notes written by myself or my colleagues may have been "brought forward" into today's note. My signature on this note, however, is an attestation that I personally performed the exam, history, and/or decision-making noted today, and, unless otherwise indicated, the interactions with patient, family, and staff as well as the review of records all occurred today. I also attest that the listed assessment and stated plan reflect my best clinical judgment today based on the combination of historical information, prior notes, and today's exam/ interactions. When time spent is documented, it refers only to time spent today by the signer, or if indicated, combined time spent today by collaborating physician/nurse practitioner. (Josephine Whalen) Collaborating MD Comments . Chart reviewed. Cased discussed with palliative care KILN FIRER HELPER. Above KILN FIRER HELPER note reviewed and I concur. . (Tomi Salazar MD) Josephine Whalen Feb 12, 2017 13:35 Tomi Salazar MD April 02, 2017 14:49
[2017-02-12] MEDS ORDERED: ROCURONIUM INJ 50 MG/5 ML VIAL IV STA (14:23)
--- NOTE | 2017-02-12 14:24 | PD.CONS ---
[facility] Service Critical Care Medicine Consult Requested By Dr. Velez Reason for Consult hypoxia Primary Care Physician unknown History of Present Illness This is a 86yM who presented from home with altered mental status and end-stage dementia. His hospital course has been complicated by C. Diff and pneumonia for which he is on appropriate therapy. He has been noted to have uturd-nf-emwnovo aspiration during this hospital stay and has been NPO. Today, a rapid response was called for acute respiratory distress and hypoxia. I was called by Dr. Velez at the rapid response. He believe this is an aspiration event given the patient's clinical history. I immediately went and evaluated the patient. He is labored and in distress. his spo2 is 93% on non-rebreather. He is also in what appears to be new-onset atrial fibrillation with RVR and a HR 160s. Brief review of the pertinent laboratory data demonstrate worsening acute kidney injury, worsening anion-gap metabolic acidosis. Critical care medicine is consulted to evaluate and manage his severe respiratory distress and afib RVR. Unfortunately, the patient is obtunded and cannot provide any additional history. Review of Systems ROS Limitations: Clinical Condition, Altered Mental Status, Unresponsive Past Family Social History Allergies: Coded Allergies: No Known Allergies (Verified , 11/22/06) UNOBTAINABLE (Unverified , 02/09/17) Past Medical History end-stage dementia. the remainder of the past medical history is unknown and unobtainable secondary to the patient's clinical condition. Past Surgical History unknown and unobtainable secondary to the clinical condition of the patient. Reported Medications unknown and unobtainable secondary to the clinical condition of the patient. Active Ordered Medications See MAR Family History unknown and unobtainable secondary to the clinical condition of the patient. Social History unknown and unobtainable secondary to the clinical condition of the patient. Physical Exam Vital Signs Vital Signs Date Time Temp Pulse Resp B/P Pulse Ox O2 Delivery O2 Flow Rate FiO2 02/12/17 13:23 94 Aerosol Mask 10.00 02/12/17 12:00 98.7 80 20 146/72 93 02/12/17 09:25 96 Nasal Cannula 4.00 02/12/17 08:00 97.4 121 20 157/101 83 02/12/17 05:40 99.1 112 23 145/80 93 02/12/17 01:00 100.3 115 24 160/83 93 02/11/17 21:50 99.1 120 23 138/80 93 02/11/17 16:00 99.1 108 19 155/57 97 Physical Exam gen: elderly male in severe respiratory distress heent: perrl. mucous membranes dry neck: obvious jvd up to the level of the mandible. trachea midline chest: NRB in place. labored. tachypneic. coarse rales bilaterally. cv: tachycardic rate, irregularly irregular rhythm. afib by tele. abd: soft, nontender, nondistended. no guarding. extr: no peripheral edema. distal pulses 2+ neuro: RASS -3. weakly withdraws to pain. Laboratory Laboratory Tests Test 02/12/17 02/12/17 06:46 12:55 White Blood Count 9.2 Red Blood Count 4.07 Hemoglobin 12.2 Hematocrit 36.2 Mean Corpuscular Volume 89.0 Mean Corpuscular Hemoglobin 29.9 Mean Corpuscular Hemoglobin 33.6 Concent Red Cell Distribution Width 16.1 Platelet Count 144 Mean Platelet Volume 9.9 Neutrophils (%) (Auto) 78.6 Lymphocytes (%) (Auto) 12.0 Monocytes (%) (Auto) 9.1 Eosinophils (%) (Auto) 0.1 Basophils (%) (Auto) 0.2 Neutrophils # (Auto) 7.2 Lymphocytes # (Auto) 1.1 Monocytes # (Auto) 0.8 Eosinophils # (Auto) 0.0 Basophils # (Auto) 0.0 CBC Comment DIFF FINAL Differential Comment Sodium Level 147 Potassium Level 4.1 Chloride Level 114 Carbon Dioxide Level 20.3 Anion Gap 13 Blood Urea Nitrogen 37 Creatinine 2.27 Estimat Glomerular Filtration 33 Rate Random Glucose 90 Calcium Level 8.5 Blood Gas Puncture Site RT RADIAL Blood Gas Patient Temperature 98.6 Blood Gas HCO3 18 Blood Gas Base Excess -6.4 Blood Gas Oxygen Saturation 92 Arterial Blood pH 7.36 Arterial Blood Partial 33 Pressure CO2 Arterial Blood Partial 74 Pressure O2 Arterial Blood Oxygen Content 15.7 Arterial Blood 0.9 Carboxyhemoglobin Arterial Blood Methemoglobin 0.7 Blood Gas Hemoglobin 12.1 Oxygen Delivery Device NRB Blood Gas Inspired Oxygen 100 Date/Time Procedure Status Source Growth 02/09/17 10:42 Aerobic Blood Culture - Preliminary Resulted Blood Peripheral NO GROWTH IN 3 DAYS 02/09/17 10:42 Anaerobic Blood Culture - Preliminary Resulted Blood Peripheral NO GROWTH IN 3 DAYS 02/07/17 20:05 Aerobic Blood Culture - Final Complete Blood Peripheral NO GROWTH IN 5 DAYS 02/07/17 20:05 Anaerobic Blood Culture - Final Complete Blood Peripheral NO GROWTH IN 5 DAYS Result Diagram: 02/12/17 0646 02/12/17 0646 Imaging CXR pending. prior CXR on 02/09 with evidence of RLL consolidation Assessment and Plan Assessment and Plan Assessment: 86yM with end-stage dementia, onemf-ap-eqjoiab aspiration, now with severe respiratory distress, acute hypoxic respiratory failure, worsening acute kidney injury, atrial fibrillation with rapid ventricular response. He is very critically ill at this time. Palliative care was consulted this morning to review goals of care with the family. I agree given the patient's severe dementia at baseline, and his age, this may not be a survivable event and hospital stay for him. For now, our goals remain aggressive as he is a documented FULL CODE. Plan by Systems: Neuro: End-stage dementia Acute metabolic encephalopathy -- frequent neuro checks -- avoid long-acting sedating meds -- CT head 02/07 negative for acute disease Respiratory: Acute hypoxic respiratory failure Aspiration pneumonitis [id number] aspiration -- will proceed with intubation given the severity of the patient's distress and hypoxia, as he is still a full code. -- wean fio2 for goal spo2 > 90% -- no SBT today. Cardiovascular: Atrial Fibrillation with Rapid Ventricular Response -- likely combination of stress response and volume overload -- cardizem 10mg iv x 1. likely will require cardizem drip. may need DCCV if he becomes unstable. -- diuresis with bumex 1mg iv x 1 Renal: Acute Kidney Injury Acute intravascular volume overload -- bumex as above -- nephrology consulted and following -- will place mercado catheter and monitor strict I/Os FEN/GI: Acute protein calorie malnutrition- severe C.Difficile Colitis Diarrhea Acute on chronic Aspiration -- saline lock ivf -- diuresis as above -- ICU electrolyte protocol -- NPO Heme/ID: C.Difficile Colitis Sepsis acute on chronic aspiration -- ID on board -- abx per ID Endocrine: Hyperglycemia of critical illness -- SSI, q6h, med scale Prophylaxis: SCDs, SQH, Protonix Dispo: transfer to the ICU. he remains very critically ill at this time. Critical Care Time: 77 minutes, exclusive of separately billable procedures. Code Status Full Code. palliative on board. unable to reach family. Discussed Condition With Dr. Velez, palliative care team, rapid response team, bedside RN. Fantasma Demarco MD Feb 12, 2017 14:24
[2017-02-12] MEDS ORDERED: MAGNESIUM SULFATE INJ 4 GM in SODIUM CHLORIDE 0.9% INJ 92 ML IV PRN (14:30)
[2017-02-12] MEDS ORDERED: POTASSIUM PHOSPHATE INJ 30 MMOL in SODIUM CHLOR 0.9% 250 ML INJ 250 ML IV PRN (14:30)
[2017-02-12] MEDS ORDERED: POTASSIUM PHOSPHATE MONOBASIC 500 MG TAB PO PRN (14:30)
[2017-02-12] MEDS ORDERED: POTASSIUM CHLOR 20 MEQ PREMIX 100 ML IV PRN ×2 (14:30)
[2017-02-12] MEDS ORDERED: POTASSIUM PHOSPHATE MONOBASIC 500 MG TAB PO/TUBE PRN (14:30)
[2017-02-12] MEDS ORDERED: fentaNYL DRIP 250 ML IV SCH (14:30)
[2017-02-12] MEDS ORDERED: MIDAZOLAM HCL 5 MG/ML VIAL (1 ML) ONE (14:30)
[2017-02-12] MEDS ORDERED: MAGNESIUM OXIDE 400 MG TAB PO PRN (14:30)
[2017-02-12] MEDS ORDERED: MIDAZOLAM HCL 5 MG/ML VIAL (1 ML) IV PUSH ONE (14:30)
[2017-02-12] MEDS ORDERED: POTASSIUM CHLOR 40 MEQ PREMIX 100 ML IV PRN ×2 (14:30)
[2017-02-12] MEDS ORDERED: SODIUM PHOSPHATE INJ 30 MMOL in SODIUM CHLOR 0.9% 250 ML INJ 240 ML IV PRN (14:30)
[2017-02-12] MEDS ORDERED: MAGNESIUM SULFATE INJ 2 GM in SODIUM CHLORIDE 0.9% INJ 96 ML IV PRN (14:30)
[2017-02-12] MEDS ORDERED: DILTIAZEM HCL 25 MG/5 ML VIAL ONE (14:41)
--- NOTE | 2017-02-12 14:48 | RADRPT ---
EXAM DATE/TIME: 02/12/2017 13:53 [facility] COMPARISON: CHEST PA & LAT, February 09, 2017, 12:49. CHEST SINGLE AP, February 07, 2017, 20:28. INDICATIONS : Short of breath MEDICAL HISTORY : None. SURGICAL HISTORY : None. ENCOUNTER: Subsequent ACUITY: 2 days PAIN SCORE: Non-responsive. LOCATION: Bilateral chest FINDINGS: 2 AP views of the chest demonstrate a normal-sized cardiac silhouette with tortuous descending thorac ic aorta. The patient is rotated to the right. There is pleural-parenchymal opacity at the inferior r ight hemithorax, increased from the prior study. No left lung abnormality is seen. There is no pneumo thorax visualized. Bones demonstrate no acute finding. CONCLUSION: Increasing right basilar opacity characteristic of a pleural effusion with associated volume loss and /or airspace consolidation. Tra Ma MD on February 12, 2017 at 14:45 Board Certified Radiologist. This report was verified electronically.
[2017-02-12] MEDS ORDERED: RESP: ALBUTEROL 2.5 MG/IPRATROPIUM 0.5 MG NEB (PRN) INH (15:00)
[2017-02-12] MEDS: PHENYLEPHRINE 40 MG/D5W 496 ML ADMIX IV SCH ×2 (15:30)
[2017-02-12] MEDS: DILTIAZEM 125 MG/NS 100 ML IV SCH ×2 (15:30)
[2017-02-12] MEDS: PROPOFOL 1000 MG/100 ML INJ 100 ML IV SCH (15:31)
--- NOTE | 2017-02-12 15:39 | RADRPT ---
EXAM DATE/TIME: 02/12/2017 15:11 [facility] COMPARISON: CHEST SINGLE AP, February 07, 2017, 20:28. CHEST PA & LAT, February 09, 2017, 12:49. CHEST SINGLE AP, Feb, 13:53. INDICATIONS : Post intubation and hypoxia. MEDICAL HISTORY : None. SURGICAL HISTORY : None. ENCOUNTER: Subsequent ACUITY: 1 day PAIN SCORE: Non-responsive. LOCATION: Bilateral chest FINDINGS: Endotracheal tube is now present with tip 4-5 cm above the junie. The right lung is again notable fo r diffuse pleuroparenchymal opacity most notable at the lung base suggesting alveolar infiltrate and layering effusion. The left lung is clear and hyperinflated. The cardiac contours are stable accounti ng for differences in technique and projection. CONCLUSION: Interval intubation. Diffuse right lung pleural-parenchymal opacity Tra Garibay MD on February 12, 2017 at 15:35 Board Certified Radiologist. This report was verified electronically.
[2017-02-12] MEDS: FREE WATER G-TUBE SCH ×2 (15:59→20:00)
[2017-02-12] MEDS: RESP: ALBUTEROL 2.5 MG/IPRATROPIUM 0.5 MG NEB (SCH) INH ×2 (16:10→19:56)
[2017-02-12] MEDS: MAGNESIUM SULFAT 1 GM PREMIX 100 ML x2 bags IV SCH ×2 (16:37→17:00)
--- NOTE | 2017-02-12 17:25 | PD.PROCEDR ---
Procedure Note Procedure Endotracheal Intubation Diagnosis: Aspiration pneumonitis Indications: Acute hypoxic respiratory failure Consent: Consent is deemed emergent or medically necessary Anesthesia: Versed 5 mg IV, Rocuronium 50 mg IV Description of the Procedure: The patient was positioned in the sniffing position. Pre-oxygenation was performed using a [id number]. Anesthesia was induced via rapid sequence. A Navas #2 was used for laryngoscopy and a Grade I view was obtained. A 8.5 cuffed endotracheal tube was inserted atraumatically through the vocal cords. Confirmation of correct endotracheal tube placement was made by equal and bilateral breath sounds and colorimetric CO2 detection. The endotracheal tube was secured at 23 cm at the teeth. There were no immediate complications noted. The patient remained hemodynamically stable throughout the procedure. A chest x-ray has been ordered. I personally performed the procedure. Fantasma Demarco MD Feb 12, 2017 17:25
[2017-02-12 17:26] LABS: BLOOD GAS BASE EXCESS -6.5 mmol/L (-2-2); BLOOD GAS CARBOXYHEMOGLOBIN 0.7 % (0-4); BLOOD GAS HCO3 19 mmol/L (22-26); BLOOD GAS METHEMOGLOBIN 1.4 % (0-2); BLOOD GAS O2 HGB SATURATION 95 % (90-100); BLOOD GAS OXYGEN CONTENT 16.6 Vol % (12.0-20.0); BLOOD GAS PCO2 38 mmHg (38-42); BLOOD GAS PO2 114 mmHg (61-120); BLOOD GAS TOTAL HGB 12.3 G/DL (12.0-16.0); CRITICAL VALUE NO; OXYGEN DEVICE VENTILATOR; TEMP CORR TO 98.6
[2017-02-12 17:27] LABS: DRAW SITE RT BRACHIAL; FIO2 100 %; NUMBER OF ARTERIAL PUNCTURES 1; STAT NO; ULNAR PULSE PRESENT
[2017-02-12] MEDS: INSULIN NovoLIN REGULAR SUPPLEMENTAL SCALE SQ SCH (18:00)
[2017-02-12] MEDS ORDERED: BUMETANIDE INJ 1 MG/4 ML VIAL IV PUSH SCH (18:00)
[2017-02-12] MEDS: CEFEPIME INJ 1,000 MG in SODIUM CHLORIDE 0.9% INJ 100 ML IV SCH (18:52)
[2017-02-12] MEDS: CHLORHEXIDINE 0.12% (ORAL KIT) 15 ML CUP MT SCH (20:06)
[2017-02-12] MEDS ORDERED: CHLORHEXIDINE GLUCONATE 2 % 1 PACK (2 CLOTHS)(extra cloths) TOPICAL PRN (21:45)
[2017-02-12 21:53] LABS: BACTERIA, URINE RARE /hpf; BLOOD, URINE MOD (NEG); GLUCOSE,URINE NEG (NEG); GRANULAR CAST, URINE 19 /lpf; HYALINE CAST, URINE 29 /lpf (RARE); KETONE, URINE TRACE mg/dL (NEG); MUCUS URINE FEW /lpf (OCC); NITRITE,URINE NEG (NEG); SQUAMOUS EPITHELIAL CELL URINE 2 /hpf (0-5)
[2017-02-12 21:55] LABS: COMMENT (UR) CATH-CULTURE IND; CULTURE IF INDICATED CATH CULTURE IND; URINE COLOR RED (YELLW/STRAW)
[2017-02-12 22:27] LABS: CKMB 1.8 NG/ML (0.5-3.6)
--- NOTE | 2017-02-12 23:12 | MB ---
cc: NITISH OLIVA DO DATE OF CONSULTATION 02/12/2017 REASON FOR CONSULTATION Elevated troponin. HISTORY OF PRESENT ILLNESS Clarence Morgan is an 86-year-old male who originally presented to [facility] Emergency Room on February 07, 2017 due to a fall. Per the daughter the patient is usually able to get himself dressed and get to the restroom and back with no difficulty. She was at home sick and heard him fall over a glass table. She called 9-1-1 immediately. He was extremely weak at that time. On arrival to the emergency room he was found to have pneumonia with sepsis. The patient is currently intubated and information is taken from the chart and the patient's daughter. It appears that he has been febrile since arrival as well as tachycardiac. A helicat was called today due to acute respiratory distress and hypoxia. There was a concern that he had an aspiration event and was found to also be in new onset atrial fibrillation with rapid ventricular response and a heart rate in the 160s. He was intubated by critical care and placed on a Cardizem drip. He was also hypotensive post intubation and placed on Levophed drip. In seeing him he is currently sedated on the vent. During his initial labs he was found to have a troponin of 0.18 which increased to 0.2. It was felt that this was due to sepsis as well as his acute on chronic kidney injury. PAST MEDICAL HISTORY 1. Dementia. 2. Hypertension. 3. Unable to obtain further due to the patient's clinical condition. PAST SURGICAL HISTORY Unable to obtain due to the patient's clinical condition. ALLERGIES Previously no known drug allergies. MEDICATIONS 1. Losartan 100 milligrams daily. 2. Toprol XL 50 milligrams daily. 3. Hydralazine 50 milligrams b.i.d. FAMILY HISTORY Unable to obtain secondary to clinical condition. SOCIAL HISTORY The patient lives with his daughter and appears to be able to do most of his activities of daily living on a normal basis. REVIEW OF SYSTEMS Unable to obtain secondary to the patient's condition. PHYSICAL EXAMINATION VITAL SIGNS: Temperature 100.3, heart rate 120, blood pressure 100/58, respirations 15, pulse ox 92% on a ventilator at 100%. GENERAL: In general the patient is sedated and intubated on the vent. HEENT: Pupils are equal and round. Mucous membranes moist. ET tube in place. NECK: Supple with mild JVD to the angle of the mandibula. No carotid bruits heard bilaterally. Carotid upstroke is brisk in nature. HEART: Heart is regular but tachycardiac. No murmurs noted. LUNGS: Lungs have decreased breath sounds bilaterally with rhonchi throughout. ABDOMEN: Soft, nontender, nondistended. No organomegaly noted. EXTREMITIES: Show no clubbing, cyanosis or edema. Femoral and distal pulses intact bilaterally. NEUROLOGICALLY: Unable to obtain due to the patient currently being intubated and sedated. LABORATORY FINDINGS White blood cells 9.2, hemoglobin 12.2, hematocrit 36.2, platelets 144. Potassium 4.1, BUN 37, creatinine 2.27. BNP 54. IMPRESSION 1. Acute hypoxic respiratory failure possibly due to aspiration pneumonia. 2. Sepsis, septic shock. 3. Elevated troponin most likely type 2 in nature. 4. Dementia. 5. Atrial fibrillation with rapid ventricular response. 6. Acute kidney injury. 7. C. Diff colitis. RECOMMENDATIONS 1. Mr. Morgan' previous elevation of troponins is most likely due to his acute illness of pneumonia and sepsis as well as his chronic kidney disease. 2. With his most recent event we will recheck troponins, although, these will most likely be more elevated due to his sepsis, atrial fibrillation with rapid ventricular response, hypotension and hypoxia. 3. We will plan on continuing medical management for his elevation of troponins. 4. As far as his atrial fibrillation goes, we will continue him on a Cardizem drip for now as his blood pressure tolerates. He may need an elevated heart rate to keep his cardiac output up. 5. Antibiotics per infectious disease. 6. Vent per critical care. 7. Will check a 2D echo to look at his overall left ventricular function, cardiac structure and possible valvulopathies. 8. Further recommendations will be made based on the hospital course. 9. I did discuss with the patient's daughter about our current plan and she is in agreement. Thank you for allowing me to see Clarence Morgan. If there are any questions please do not hesitate to call. Nitish Oliva DO VGP/EO /7:41 PM /10:57 PM
[2017-02-13] VITALS (16 sets, daily range): BP systolic 87–110; BP diastolic 54–65; PULSE 82–109; RESP 17–24; TEMP 98.8–100.4; O2SAT 92–100
[2017-02-13] MEDS: metroNIDAZOLE 500 MG INJ 100 ML IV SCH ×4 (00:17→23:39)
[2017-02-13] MEDS: INSULIN NovoLIN REGULAR SUPPLEMENTAL SCALE SQ SCH ×5 (00:17→23:39)
[2017-02-13] MEDS: DILTIAZEM 125 MG/NS 100 ML IV SCH ×4 (00:49→06:00)
[2017-02-13] MEDS: PHENYLEPHRINE 40 MG/D5W 496 ML ADMIX IV SCH ×6 (00:49→21:47)
[2017-02-13] MEDS: fentaNYL DRIP 250 ML IV SCH (01:47)
[2017-02-13 02:52] LABS: HEMATOCRIT 32.7 % (39.0-51.0); MEAN CELL VOLUME 89.9 FL (80.0-100.0); MEAN CORPUSCULAR HEMOGLOBIN 29.7 PG (27.0-34.0); PLATELET COUNT 220 TH/MM3 (150-450); RED BLOOD COUNT 3.64 MIL/MM3 (4.50-5.90); RED CELL DISTRIBUTION WIDTH 16.1 % (11.6-17.2); REVIEW FLAG FINAL; WHITE BLOOD COUNT 8.3 TH/MM3 (4.0-11.0)
[2017-02-13] MEDS: RESP: ALBUTEROL 2.5 MG/IPRATROPIUM 0.5 MG NEB (SCH) INH ×4 (03:06→21:14)
[2017-02-13 03:17] LABS: BICARBONATE 19.4 MEQ/L (21.0-32.0); BICARBONATE 19.6 MEQ/L (21.0-32.0); POTASSIUM 4.1 MEQ/L (3.5-5.1); POTASSIUM 4.2 MEQ/L (3.5-5.1)
[2017-02-13 03:33] LABS: CKMB 1.8 NG/ML (0.5-3.6)
[2017-02-13] MEDS: FREE WATER G-TUBE SCH ×7 (03:53→23:39)
[2017-02-13] MEDS: CHLORHEXIDINE GLUCONATE 2 % 1 PACK (2 CLOTHS)(taper/protocol) TOPICAL SCH (03:53)
[2017-02-13] MEDS ORDERED: EPINEPHrine HCL (1:10,000) 1 MG/10 ML SYRINGE IV ONE (05:00)
[2017-02-13] MEDS ORDERED: NALOXONE HCL 4 MG/10 ML MDV IV ONE (05:00)
--- NOTE | 2017-02-13 05:28 | RADRPT ---
EXAM DATE/TIME: 02/13/2017 04:07 [facility] COMPARISON: CHEST SINGLE AP, February 12, 2017, 15:11. INDICATIONS : Short of breath. MEDICAL HISTORY : None. SURGICAL HISTORY : None. ENCOUNTER: Subsequent ACUITY: 2 days PAIN SCORE: Non-responsive. LOCATION: Bilateral chest FINDINGS: A single view of the chest demonstrates right basilar consolidation and probable small effusion. Mini mal density in the left retrocardiac region. Endotracheal tube is stable in position. Nasogastric tub e seen with tip below the anterior margin image. The cardiomediastinal contours are unremarkable. Os seous structures are intact. CONCLUSION: 1. Persistent right basilar consolidation and probable small pleural effusion. 2. Minimal density in the left retrocardiac region. Gregory Hoover MD on February 13, 2017 at 5:24 Board Certified Radiologist. This report was verified electronically.
[2017-02-13] MEDS: ASPIRIN 81 MG CHEW TAB CHEW SCH (08:06)
[2017-02-13] MEDS: PROPOFOL 1000 MG/100 ML INJ 100 ML IV SCH (08:07)
[2017-02-13] MEDS: LACTOBACILLUS ACIDOPHILUS TAB PO SCH ×3 (08:07→18:09)
[2017-02-13] MEDS: CHLORHEXIDINE 0.12% (ORAL KIT) 15 ML CUP MT SCH ×2 (09:03→20:20)
[2017-02-13] MEDS: AZITHROMYCIN INJ 500 MG in SODIUM CHLOR 0.9% 250 ML INJ 250 ML IV SCH (09:49)
--- NOTE | 2017-02-13 09:55 | HHI.NPPN ---
Subjective General Problems: Hypotension Renal Failure: Chronic, Acute Interval History He was a helicat to [facility] for acute respiratory failure, was intubated. He was also found to be in A fib with RVR. Started on cardizem gtt and pressors. His renal function is worse. is at bedside. (Juliana Saravia) Review of Systems General General Remarks unable to obtain due to intubation/sedation (Juliana Saravia) Objective Data Data 02/12/17 02/13/17 19:00 07:00 Intake Total 2115 ml Output Total 300 ml Balance 1815 ml IV Total 1390 ml Tube Feeding 125 ml Other 600 ml Output Urine Total 300 ml Vital Signs Date Time Temp Pulse Resp B/P Pulse Ox O2 Delivery O2 Flow Rate FiO2 02/13/17 08:33 94 60 02/13/17 04:00 80 02/13/17 04:00 99.9 102 24 101/64 97 02/13/17 03:08 97 80 02/13/17 01:07 93 80 02/13/17 00:00 75 02/13/17 00:00 99.6 109 22 87/54 92 02/12/17 22:17 93 75 02/12/17 20:00 100.8 108 22 96/56 94 02/12/17 20:00 75 02/12/17 19:56 95 75 02/12/17 16:00 100.3 148 15 101/58 89 02/12/17 16:00 100 02/12/17 14:38 96 100 02/12/17 13:23 94 Aerosol Mask 10.00 02/12/17 12:00 98.7 80 20 146/72 93 (Juliana Saravia) -: 02/13/17 0230 02/13/17 0230 Microbiology 02/12/17 Legionella Antigen - Final, Complete PRESUMPTIVE NEGATIVE FOR LEGIONELLA P... 02/12/17 Streptococcus pneumoniae Antigen (M - Final, Complete PRESUMPTIVE NEGATIVE FOR STREPTOCOCCU... 02/12/17 Urine Culture, Received Pending Imaging Last 72 hours Impressions Chest X-Ray 02/13/17 0600 Signed Impressions: Service Date/Time: Monday, February 13, 2017 04:07 - CONCLUSION: 1. Persistent right basilar consolidation and probable small pleural effusion. 2. Minimal density in the left retrocardiac region. Gregory Hoover MD Chest X-Ray 02/12/17 0000 Signed Impressions: Service Date/Time: Sunday, February 12, 2017 15:11 - CONCLUSION: Interval intubation. Diffuse right lung pleural-parenchymal opacity Tra Garibay MD Chest X-Ray 02/12/17 0000 Signed Impressions: Service Date/Time: Sunday, February 12, 2017 13:53 - CONCLUSION: Increasing right basilar opacity characteristic of a pleural effusion with associated volume loss and/or airspace consolidation. Tra Ma MD Tubes & Lines: Zimmerman Drip Comment Cardizem, fentanyl (on hold), Levophed, propofol (Rani,Juliana B. INFORMATION BROKER) Physical Exam General Appearance: No Acute Distress, Sleeping, Malnourished (Rani,Juliana B. INFORMATION BROKER) Eyes Eye Exam: Pupils Equal (Rani,Juliana B. INFORMATION BROKER) Throat Throat Exam: Oral Mucosa [place] & Moist Throat Remarks ETT, OG tube (Rani,Juliana B. INFORMATION BROKER) Pulmonary Resp Exam: Breath Sounds Equal, Crackles, Rhonchi Resp Remarks vented (Rani,Juliana B. INFORMATION BROKER) Cardiology CV Exam: Regular, Tachycardia (Rani,Juliana B. INFORMATION BROKER) Gastrointestinal/Abdomen GI Exam: Soft, Non-Tender, Bowel Sounds Present (Rani,Juliana B. INFORMATION BROKER) Musculoskeletal MS Exam: Joints Intact, Atrophy (Rani,Juliana B. INFORMATION BROKER) Integumentary Skin Exam: Warm, Dry (Rani,Juliana B. INFORMATION BROKER) Extremeties Extremities Exam: No Edema, Pedal Pulses Palpable (Rani,Juliana B. INFORMATION BROKER) Neurologic Neuro Exam: Unresponsive, Sedated (Rani,Juliana B. INFORMATION BROKER) VTE Prophylaxis Device: SCDs (RaniJuliana B. INFORMATION BROKER) Assessment/Plan Discussed Condition With: Patient Assessment Summary: WILLIE/Acute Renal Failure Problem List: (1) Acute renal failure Plan: in a patient whose baseline creatinine was 1.7 in 2006 renal function has worsened, likely due to acute overnight events of hypotension ,sepsis, A fib RVR causing diminished renal perfusion his urine output has decreased, may have progressed to ATN chest Xray reviewed, does not appear fluid overloaded stop Bumex, begin NS @ 75cc/hr at this time his prognosis is guarded monitor renal function daily use pressors to maintain adequate MAP > 65mmHg avoid nephrotoxins, renally dose medications when appropriate he is no in need of renal replacement at this time, but that may change depending on his hospital course his prognosis is guarded, he may not do well on dialysis \ D/W (2) Encephalopathy Plan: multifactorial, has hx of dementia was septic and in acute hypoxic respiratory failure now intubated reevaluate when off sedation continue supportive measures (3) Dysphagia Plan: will need PEG placement due to chronic aspiration (4) Pneumonia Plan: likely aspiration related on cefepime and Zithromax (5) Clostridium difficile infection Plan: on IV flagyl contact precautions (Juliana Saravia) Plan patient was seen and examined. Intubated. Oliguric, renal function is worse. May need dialysis. Poor prognosis. Discussed with Dr. Demarco. Clinically does not appear to be in fluid overload. Stop diuretics, a trial of fluids. Discussed with his . Mentioned dialysis. She wants to think about all the options. No emergent need for dialysis. (Mauro Dallas MD) Problem Qualifiers (1) Pneumonia: Qualified Code: J18.1 - Pneumonia of right lower lobe due to infectious organism Juliana Saravia Feb 13, 2017 09:55 Mauro Dallas MD Feb 13, 2017 11:42
--- NOTE | 2017-02-13 09:57 | HHI.IDPN ---
Subjective Subjective Remarks Notes reviewed D/W RN Transferred to ICU yesterday for respiratory distress Required intubation Sedated on the vent Has low grade temps ET secretions light yellow/green is an 86 y/o AAM (Herber by ) with Dementia who presented with worsening mentation and diagnosed with Pneumonia and Cdiff positive diarrhea. PM records from 2006 indicate no allergies no surgeries. ID following for PNA and Cdiff present on admission. Antibiotics Cefepime IV (for worsening PNA) Flagyl IV (cdiff and anaerobic coverage) Azithro (atypical coverage) Lines Line sites with no e.o infection Past Medical History Dementia. Allergies: Coded Allergies: No Known Allergies (Verified , 11/22/06) UNOBTAINABLE (Unverified , 02/09/17) Objective . Vital Signs Date Time Temp Pulse Resp B/P Pulse Ox O2 Delivery O2 Flow Rate FiO2 02/13/17 08:33 94 60 02/13/17 04:00 80 02/13/17 04:00 99.9 102 24 101/64 97 02/13/17 03:08 97 80 02/13/17 01:07 93 80 02/13/17 00:00 75 02/13/17 00:00 99.6 109 22 87/54 92 02/12/17 22:17 93 75 02/12/17 20:00 100.8 108 22 96/56 94 02/12/17 20:00 75 02/12/17 19:56 95 75 02/12/17 16:00 100.3 148 15 101/58 89 02/12/17 16:00 100 02/12/17 14:38 96 100 02/12/17 13:23 94 Aerosol Mask 10.00 02/12/17 12:00 98.7 80 20 146/72 93 02/12/17 02/12/17 02/13/17 15:00 23:00 07:00 Intake Total 1099 ml 1016 ml Output Total 150 ml 150 ml Balance 949 ml 866 ml IV Total 799 ml 591 ml Tube Feeding 125 ml Other 300 ml 300 ml Output Urine Total 150 ml 150 ml . Laboratory Tests Test 02/12/17 02/13/17 06:46 02:30 White Blood Count 9.2 TH/MM3 8.3 TH/MM3 Red Blood Count 4.07 MIL/MM3 3.64 MIL/MM3 Hemoglobin 12.2 GM/DL 10.8 GM/DL Hematocrit 36.2 % 32.7 % Mean Corpuscular Volume 89.0 FL 89.9 FL Mean Corpuscular Hemoglobin 29.9 PG 29.7 PG Mean Corpuscular Hemoglobin 33.6 % 33.0 % Concent Red Cell Distribution Width 16.1 % 16.1 % Platelet Count 144 TH/MM3 220 TH/MM3 Mean Platelet Volume 9.9 FL 10.9 FL Neutrophils (%) (Auto) 78.6 % Lymphocytes (%) (Auto) 12.0 % Monocytes (%) (Auto) 9.1 % Eosinophils (%) (Auto) 0.1 % Basophils (%) (Auto) 0.2 % Neutrophils # (Auto) 7.2 TH/MM3 Lymphocytes # (Auto) 1.1 TH/MM3 Monocytes # (Auto) 0.8 TH/MM3 Eosinophils # (Auto) 0.0 TH/MM3 Basophils # (Auto) 0.0 TH/MM3 CBC Comment DIFF FINAL Differential Comment Laboratory Tests Test 02/12/17 02/12/17 02/12/17 02/13/17 06:46 14:16 21:43 02:30 Sodium Level 147 MEQ/L 145 MEQ/L Potassium Level 4.1 MEQ/L 4.2 MEQ/L Chloride Level 114 MEQ/L 112 MEQ/L Carbon Dioxide Level 20.3 MEQ/L 19.4 MEQ/L Anion Gap 13 MEQ/L 14 MEQ/L Blood Urea Nitrogen 37 MG/DL 47 MG/DL Creatinine 2.27 MG/DL 3.31 MG/DL Estimat Glomerular Filtration 33 ML/MIN 22 ML/MIN Rate Random Glucose 90 MG/DL 217 MG/DL Calcium Level 8.5 MG/DL 8.2 MG/DL B-Type Natriuretic Peptide 54 PG/ML Total Creatine Kinase 606 U/L 537 U/L Creatine Kinase MB 1.8 NG/ML 1.8 NG/ML Creatine Kinase MB % 0.3 % 0.3 % Troponin I 0.19 NG/ML 0.19 NG/ML Phosphorus Level 2.5 MG/DL Albumin 1.9 GM/DL Microbiology Date/Time Procedure Status Source Growth 02/12/17 17:30 Legionella Antigen - Final Complete Urine Clean Catch PRESUMPTIVE NEGATIVE FOR LEGIONELLA P... 02/12/17 17:30 Streptococcus pneumoniae Antigen (M - Final Complete Urine Clean Catch PRESUMPTIVE NEGATIVE FOR STREPTOCOCCU... 02/12/17 21:23 Urine Culture Received Urine Catheterized Urine Pending Imaging Chest X-Ray 02/13/17 0600 Signed Impressions: Service Date/Time: Monday, February 13, 2017 04:07 - CONCLUSION: 1. Persistent right basilar consolidation and probable small pleural effusion. 2. Minimal density in the left retrocardiac region. Gregory Hoover MD Chest X-Ray 02/12/17 0000 Signed Impressions: Service Date/Time: Sunday, February 12, 2017 15:11 - CONCLUSION: Interval intubation. Diffuse right lung pleural-parenchymal opacity Tra Garibay MD Chest X-Ray 02/12/17 0000 Signed Impressions: Service Date/Time: Sunday, February 12, 2017 13:53 - CONCLUSION: Increasing right basilar opacity characteristic of a pleural effusion with associated volume loss and/or airspace consolidation. Tra Ma MD Last Impressions Chest X-Ray 02/09/17 0000 Signed Impressions: Service Date/Time: Thursday, February 09, 2017 12:49 - CONCLUSION: Increasing consolidative changes right lung base. Arya Horton MD FACR Head CT 02/07/17 194 Signed Impressions: Service Date/Time: Tuesday, February 07, 2017 20:03 - CONCLUSION: No acute intracranial injury Tra Garibay MD Physical Exam GENERAL: Sedated on the vent. NAD SKIN: Warm and dry, no generalized rash or ecchymosis. HEENT: [place] conjunctivae. No scleral icterus. No injection or drainage. ET in mouth. NECK: Trachea midline. Supple, nontender, no meningeal signs. CARDIOVASCULAR: RRR RESPIRATORY: Decreased BS worse on R than L GASTROINTESTINAL: Abdomen mildly distended, bowel sounds are present, hypoactive. No reaction to palpation MUSCULOSKELETAL: Extremities without clubbing, cyanosis, or edema. NEUROLOGICAL: Sedated PSYCH: Unable to assess LINE: PIV with no evidence of infection Assessment & Plan Remarks IMPRESSION Respiratory failure, due to worsening pneumonia, likely due to recurrent aspiration Pneumonia present on admission: likely aspiration in setting of dementia. Cdiff positive diarrhea Ongoing aspiration. Dementia Acute metabolic encephalopathy Persistent fevers: Concomitant antibiotics for Pneumonia ppting Cdiff, ongoing aspiration. Renal insufficiency, worsening, likely multifactorail RECOMMENDATION Continue Cefepime IV to cover more GNR Continue flagyl, currently being given IV due to aspiration problem - for C diff and anaerobic coverage Continue Azithro oral. - for atypical coverage Sputum G/S C/S Follow C/S - adjust Abx once available Follow temps Monitor progress D/W Tricia Titus MD Feb 13, 2017 09:57
[2017-02-13] MEDS: ACETAMINOPHEN 500 MG CPLT PO PRN (11:30)
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
--- NOTE | 2017-02-13 13:08 | PD.CARD.PN ---
Subjective Subjective Remarks No events over night Heart rate decreased and better controlled on Cardizem 5mg/hr, still on [place] at 80 mcg/min Objective Medications Current Medications Medications (Trade) Dose Ordered Sig/Connor Route Start Time Stop Time Status Last Admin (Zofran Inj) 4 mg Q8H PRN IV PUSH 02/07/17 21:45 (Apresoline) 50 mg BID PO 02/08/17 21:00 Hold 02/10/17 21:41 (Cozaar) 100 mg DAILY PO 02/09/17 09:00 Hold 02/10/17 10:27 (Toprol Xl) 50 mg DAILY PO 02/08/17 13:00 Hold 02/10/17 10:27 (Tylenol) 500 mg Q4H PRN PO 02/08/17 13:15 02/13/17 11:30 (Lactinex) 1 tab TID PO 02/09/17 13:00 02/13/17 08:07 Acetaminophen 650 mg 650 mg Q4H PRN RECTAL 02/10/17 01:00 02/12/17 01:37 (Flagyl 500 Mg Inj) 100 ml @ 100 mls/hr Q8H IV 02/12/17 08:00 02/13/17 08:06 Clonidine 1 patch 1 patch Q7D T-DERMAL 02/12/17 09:00 Hold 02/12/17 10:04 Azithromycin 500 mg/Sodium Chloride 250 ml @ 250 mls/hr Q24H IV 02/12/17 09:00 02/13/17 09:49 Cefepime HCl 1000 mg/Sodium Chloride 100 ml @ 200 mls/hr Q24H IV 02/12/17 14:00 02/12/17 18:52 (Diprivan 1000 Mg/100ml Inj) 100 ml @ 0 mls/hr TITRATE IV 02/12/17 14:30 02/13/17 08:07 (Peridex 0.12% Liq) 15 ml BID@08,20 MT 02/12/17 20:00 02/13/17 09:03 (D50w (Vial) Inj) 25 ml UNSCH PRN IV PUSH 02/12/17 14:30 (NovoLIN R SUPPLEMENTAL SCALE) 1 Q6HR SQ 02/12/17 18:00 02/13/17 11:30 Water 300 ml 300 ml Q4HR G-TUBE 02/12/17 16:00 02/13/17 11:29 Phenylephrine HCl 40 mg/Dextrose 500 ml @ 0 mls/hr TITRATE IV 02/12/17 15:00 02/13/17 11:16 (Cardizem Inj/NS Inj) 125 ml @ 0 mls/hr TITRATE IV 02/12/17 16:00 02/13/17 06:00 (Aspirin Chew) 81 mg DAILY CHEW 02/13/17 09:00 02/13/17 08:06 Miscellaneous Information Patient in critical care unit? Ass... Q361D .XX 02/12/17 22:00 (Chlorhexidine 2% Cloth) 3 pack DAILY@04 TOPICAL 02/13/17 04:00 02/17/17 04:01 02/13/17 03:53 Chlorhexidine Gluconate 3 pack 3 pack UNSCH PRN TOPICAL 02/12/17 21:45 02/17/17 21:39 (fentaNYL DRIP) 250 ml @ 0 mls/hr TITRATE IV 02/13/17 01:45 02/13/17 01:47 Vital Signs / I&O Vital Signs Date Time Temp Pulse Resp B/P Pulse Ox O2 Delivery O2 Flow Rate FiO2 02/13/17 12:00 93 02/13/17 12:00 100.4 93 17 105/61 96 02/13/17 12:00 40 02/13/17 11:00 104 02/13/17 10:55 98 40 02/13/17 08:33 94 60 02/13/17 08:00 99.6 102 17 94/62 96 02/13/17 08:00 60 02/13/17 04:00 80 02/13/17 04:00 99.9 102 24 101/64 97 02/13/17 03:08 97 80 02/13/17 01:07 93 80 02/13/17 00:00 75 02/13/17 00:00 99.6 109 22 87/54 92 02/12/17 22:17 93 75 02/12/17 20:00 100.8 108 22 96/56 94 02/12/17 20:00 75 02/12/17 19:56 95 75 02/12/17 16:00 100.3 148 15 101/58 89 02/12/17 16:00 100 02/12/17 14:38 96 100 02/12/17 13:23 94 Aerosol Mask 10.00 I/O 02/12/17 02/12/17 02/12/17 02/13/17 02/13/17 02/13/17 07:00 15:00 23:00 07:00 15:00 23:00 Intake Total 0 ml 1099 ml 1016 ml Output Total 150 ml 150 ml Balance 0 ml 949 ml 866 ml Intake Oral 0 ml IV Total 799 ml 591 ml Tube Feeding 125 ml Other 300 ml 300 ml Output Urine Total 150 ml 150 ml # Voids 2 # Bowel Movements 0 Physical Exam GENERAL: Sedated on the vent SKIN: Warm and dry. HEAD: Atraumatic. Normocephalic. EYES: Pupils equal and round. No scleral icterus. No injection or drainage. ENT: No nasal bleeding or discharge. Mucous membranes pink and moist. NECK: Trachea midline. Mild JVD CARDIOVASCULAR: Regular rate, mildly tachycardic RESPIRATORY: No accessory muscle use. Decreased breath sounds bilaterally, rhonchi GASTROINTESTINAL: Abdomen soft, non-tender, nondistended. Hepatic and splenic margins not palpable. MUSCULOSKELETAL: Extremities without clubbing, cyanosis, or edema. No obvious deformities. NEUROLOGICAL: Awake and alert. No obvious cranial nerve deficits. Motor grossly within normal limits. Five out of 5 muscle strength in the arms and legs. Normal speech. PSYCHIATRIC: Appropriate mood and affect; insight and judgment normal. Laboratory Laboratory Tests Test 02/12/17 02/12/17 02/12/17 02/12/17 14:00 14:16 17:15 21:23 Nasal Screen MRSA (PCR) NEGATIVE B-Type Natriuretic Peptide 54 PG/ML Blood Gas Puncture Site RT BRACHIAL Blood Gas Patient Temperature 98.6 Blood Gas HCO3 19 mmol/L Blood Gas Base Excess -6.5 mmol/L Blood Gas Oxygen Saturation 95 % Arterial Blood pH 7.31 Arterial Blood Partial 38 mmHg Pressure CO2 Arterial Blood Partial 114 mmHg Pressure O2 Arterial Blood Oxygen Content 16.6 Vol % Arterial Blood 0.7 % Carboxyhemoglobin Arterial Blood Methemoglobin 1.4 % Blood Gas Hemoglobin 12.3 G/DL Oxygen Delivery Device VENTILATOR Blood Gas Ventilator Setting 500/15/10PEEP Blood Gas Inspired Oxygen 100 % Urine Color RED Urine Turbidity HAZY Urine pH 5.0 Urine Specific [place] 1.019 Urine Protein 30 mg/dL Urine Glucose (UA) NEG mg/dL Urine Ketones TRACE mg/dL Urine Occult Blood MOD Urine Nitrite NEG Urine Bilirubin NEG Urine Urobilinogen LESS THAN 2.0 MG/DL Urine Leukocyte Esterase MOD Urine RBC 19 /hpf Urine WBC 9 /hpf Urine Squamous Epithelial 2 /hpf Cells Urine Amorphous Sediment RARE Urine Bacteria RARE /hpf Urine Hyaline Casts 29 /lpf Urine Granular Casts 19 /lpf Urine Mucus FEW /lpf Microscopic Urinalysis Comment CATH-CULTURE IND Test 02/12/17 02/13/17 21:43 02:30 Total Creatine Kinase 606 U/L 537 U/L Creatine Kinase MB 1.8 NG/ML 1.8 NG/ML Creatine Kinase MB % 0.3 % 0.3 % Troponin I 0.19 NG/ML 0.19 NG/ML White Blood Count 8.3 TH/MM3 Red Blood Count 3.64 MIL/MM3 Hemoglobin 10.8 GM/DL Hematocrit 32.7 % Mean Corpuscular Volume 89.9 FL Mean Corpuscular Hemoglobin 29.7 PG Mean Corpuscular Hemoglobin 33.0 % Concent Red Cell Distribution Width 16.1 % Platelet Count 220 TH/MM3 Mean Platelet Volume 10.9 FL Sodium Level 145 MEQ/L Potassium Level 4.2 MEQ/L Chloride Level 112 MEQ/L Carbon Dioxide Level 19.4 MEQ/L Anion Gap 14 MEQ/L Blood Urea Nitrogen 47 MG/DL Creatinine 3.31 MG/DL Estimat Glomerular Filtration 22 ML/MIN Rate Random Glucose 217 MG/DL Calcium Level 8.2 MG/DL Phosphorus Level 2.5 MG/DL Albumin 1.9 GM/DL Assessment and Plan Problem List: (1) Pneumonia (2) Sepsis (3) Atrial fibrillation with RVR (4) Renal insufficiency (5) Elevated troponin I level (6) Encephalopathy (7) Clostridium difficile infection (8) Acute respiratory failure Assessment and Plan 1) Currently stable but guarded 2) Attempt to wean Cardizem as possible 3) No anticoagulation at this time, drop in Hgb, not sure if a good nursing home anticoagulation candidate for Afib 4) Mild elevation of troponin due to sepsis, CKD, hypotension and Afib with RVR , continue with medical management 5) Vent per critical care 6) Con't antibiotics 7) 2D echo pending Problem Qualifiers (1) Pneumonia: Qualified Code: J18.1 - Pneumonia of right lower lobe due to infectious organism (2) Sepsis: Qualified Code: A41.9 - Sepsis, due to unspecified organism Nitish Scott DO Feb 13, 2017 13:08
[2017-02-13] MEDS: CEFEPIME INJ 1,000 MG in SODIUM CHLORIDE 0.9% INJ 100 ML IV SCH (13:41)
[2017-02-13] MEDS: SODIUM CHLOR 0.9% 1000 ML INJ 1,000 ML IV SCH (13:41)
--- NOTE | 2017-02-13 14:09 | EC ---
Study Study Date:02/13/2017 STUDY CONCLUSIONS SUMMARY - Left ventricle: The cavity size was normal. Wall thickness was increased in a pattern of mild LVH. Systolic function was moderately to severely reduced. The estimated ejection fraction was in the range of 30% to 35%. Diffuse hypokinesis. - Tricuspid valve: Moderate regurgitation. - Pulmonary arteries: Systolic pressure was mildly increased. PA peak pressure: 53mm Hg (S). - Pericardium, extracardiac: A small pericardial effusion was identified along the right ventricular free wall. If LV function is below 40, please consider prescribing an ACEI or ARB or document rationale for non-use. PROCEDURE DATA STUDY STATUS: Elective. Procedure: Transthoracic echocardiography. Image quality was good. Scanning was performed from the parasternal, apical, and subcostal acoustic windows. Study completion: The patient tolerated the procedure well. Transthoracic echocardiography. M-mode, complete 2D, complete spectral Doppler, and color Doppler. Patient status: Inpatient. CARDIAC ANATOMY LEFT VENTRICLE: The cavity size was normal. Wall thickness was increased in a pattern of mild LVH. Systolic function was moderately to severely reduced. The estimated ejection fraction was in the range of 30% to 35%. Diffuse hypokinesis. AORTIC VALVE: Trileaflet; normal thickness leaflets. Doppler: Transvalvular velocity was within the normal range. There was no stenosis. No regurgitation. AORTA: Aortic root: The aortic root was normal in size. MITRAL VALVE: Structurally normal valve. Doppler: Transvalvular velocity was within the normal range. There was no evidence for stenosis. No regurgitation. LEFT ATRIUM: The atrium was normal in size. RIGHT VENTRICLE: The cavity size was normal. Wall thickness was normal. PULMONIC VALVE: Doppler: Transvalvular velocity was within the normal range. There was no evidence for stenosis. No regurgitation. TRICUSPID VALVE: Structurally normal valve. Doppler: Transvalvular velocity was within the normal range. Moderate regurgitation. PULMONARY ARTERY: The main pulmonary artery was normal-sized. Systolic pressure was mildly increased. RIGHT ATRIUM: The atrium was normal in size. PERICARDIUM: A small pericardial effusion was identified along the right ventricular free wall. SYSTEMIC VEINS: Inferior vena cava: The vessel was normal in size. BASIC MEASUREMENTS ADULT Normal Left ventricle LV internal dimension, ED, chordal level, *30.4 mm 43-52 PLAX LV internal dimension, ES, chordal level, 28.2 mm 23-38 PLAX Fractional shortening, chordal level, PLAX *7 % >29 LV posterior wall thickness, ED 7.9 mm IVS/LVPW ratio, ED *1.3 <1.3 Ventricular septum Septal thickness, ED 10.3 mm Aortic valve Leaflet separation 20 mm 15-26 Left atrium Anterior-posterior dimension 33 mm Right ventricle RV internal dimension, ED, PLAX 23.2 mm 19-38 BASIC MEASUREMENTS ADULT Normal Aortic valve Leaflet separation 20 mm 15-26 Aorta Root diameter, ED 30 mm 20-37 DOPPLER MEASUREMENTS ADULT Normal Main pulmonary artery Pressure, S *53 mm Hg =30 Mitral valve Peak E-wave velocity 34.6 cm/s Peak A-wave velocity 72.7 cm/s Peak E/A ratio 0.5 Tricuspid valve Regurgitant peak velocity 326 cm/s Peak RV-RA gradient, S 43 mm Hg Maximal regurgitant velocity 326 cm/s Systemic veins Estimated CVP 10 mm Hg Right ventricle RV pressure, S *53 mm Hg <30 LEGEND: Mean values are shown as u=mean value. Asterisk (*) crowley values outside specified normal range. Prepared and signed by Pj Escobedo [id number]
--- NOTE | 2017-02-13 18:12 | HHI.CCPN ---
Subjective Remarks/Hospital Course Hospital Course: This is a 86yM who presented from home with altered mental status and end-stage dementia. His hospital course has been complicated by C. Diff and pneumonia for which he is on appropriate therapy. He has been noted to have [id number] aspiration during this hospital stay and has been NPO. Today, a rapid response was called for acute respiratory distress and hypoxia. I was called by Dr. Velez at the rapid response. He believe this is an aspiration event given the patient's clinical history. I immediately went and evaluated the patient. He is labored and in distress. his spo2 is 93% on non-rebreather. He is also in what appears to be new-onset atrial fibrillation with RVR and a HR 160s. Brief review of the pertinent laboratory data demonstrate worsening acute kidney injury, worsening anion-gap metabolic acidosis. Critical care medicine is consulted to evaluate and manage his severe respiratory distress and afib RVR. Unfortunately, the patient is obtunded and cannot provide any additional history. Subjective: 02/13: no clinical improvements. remains in multiorgan system failure. diltiazem drip weaned to off, but remains on phenylephrine. talked with nephrology who feel clinically, despite some element of JVD, that patient is clinically intravascularly hypovolemic and they recommend gentle ivf hydration, which I am ok with as a trial. mental status poor. kidney injury persists. palliative involved. apparently daughter is not health care surrogate legally, but has been making decisions in the outpatient setting. multiple disagreements within the family. appreciate palliative involvement. Objective Vital Signs Date Time Temp Pulse Resp B/P Pulse Ox O2 Delivery O2 Flow Rate FiO2 02/13/17 16:24 92 40 02/13/17 16:00 90 02/13/17 16:00 99.0 22 87/63 02/12/17 13:23 Aerosol Mask 10.00 Intake and Output 02/12/17 02/12/17 02/13/17 08:00 16:00 00:00 Intake Total 0 ml 1099 ml Output Total 150 ml Balance 0 ml 949 ml Result Diagram: 02/13/17 0230 02/13/17 0230 Other Results Microbiology Date/Time Procedure Status Source Growth 02/12/17 17:30 Legionella Antigen - Final Complete Urine Clean Catch PRESUMPTIVE NEGATIVE FOR LEGIONELLA P... 4/10/17 17:30 Streptococcus pneumoniae Antigen (M - Final Complete Urine Clean Catch PRESUMPTIVE NEGATIVE FOR STREPTOCOCCU... Imaging CXR pending. prior CXR on 02/09 with evidence of RLL consolidation Objective Remarks gen: elderly male, cachectic. critically ill. intubated. heent: perrl. mucous membranes dry neck: + jvd. trachea midline chest: 8.[address] coarse rales bilaterally. cv: tachycardic rate, mostly regular rhythm. appears sinus with frequent PACs by tele. abd: soft, nontender, nondistended. no guarding. extr: no peripheral edema. distal pulses 2+ neuro: RASS -3. weakly withdraws to pain. Procedures None A/P Assessment and Plan Assessment: 86yM with end-stage dementia, qnpzy-cl-[id number] aspiration, now with severe respiratory distress, acute hypoxic respiratory failure, worsening acute kidney injury, type II demand ischemia, distributive shock. Appreciate palliative care involvement. Patient remains very critically ill. I agree given the patient's severe dementia at baseline, and his age, this may not be a survivable event and hospital stay for him. For now, our goals remain aggressive as he is a documented FULL CODE. Plan by Systems: Neuro: End-stage dementia Acute metabolic encephalopathy -- frequent neuro checks -- avoid long-acting sedating meds -- CT head 02/07 negative for acute disease Respiratory: Acute hypoxic respiratory failure Aspiration pneumonitis [id number] aspiration -- vent bundle -- HOB at 30 degrees -- wean fio2 for goal spo2 > 90% -- no SBT today. mental status poor. Cardiovascular: Atrial Fibrillation with Rapid Ventricular Response- resolved. Sinus tachycardia Distributive shock -- continue cardizem drip for HR control -- continue phenylephrine for goal map > 65 mmHg. -- gentle ivf hydration per nephrology. Renal: Acute Kidney Injury -- gentle ivf hydration at 50cc/hr per nephrology. -- nephrology consulted and following -- rogelio FEN/GI: Acute protein calorie malnutrition- severe C.Difficile Colitis Diarrhea Acute on chronic Aspiration -- ICU electrolyte protocol -- TF with Jevity. Heme/ID: C.Difficile Colitis Sepsis acute on chronic aspiration -- ID on board -- abx per ID Endocrine: Hyperglycemia of critical illness -- SSI, q6h, med scale Prophylaxis: SCDs, SQH, Protonix Dispo: remain in the ICU. he remains critically ill. Critical Care Time: 33 minutes, exclusive of separately billable procedures. Fantasma Demarco MD Feb 13, 2017 18:12
[2017-02-14] VITALS (19 sets, daily range): BP systolic 91–150; BP diastolic 53–80; PULSE 71–103; RESP 15–22; TEMP 98.7–101.1; O2SAT 93–100
[2017-02-14] MEDS: CHLORHEXIDINE GLUCONATE 2 % 1 PACK (2 CLOTHS)(taper/protocol) TOPICAL SCH (01:08)
[2017-02-14] MEDS: SODIUM CHLOR 0.9% 1000 ML INJ 1,000 ML IV SCH (01:09)
[2017-02-14] MEDS: RESP: ALBUTEROL 2.5 MG/IPRATROPIUM 0.5 MG NEB (SCH) INH ×4 (03:39→20:01)
[2017-02-14] MEDS: FREE WATER G-TUBE SCH ×5 (04:00→19:39)
[2017-02-14] MEDS: ACETAMINOPHEN 500 MG CPLT PO PRN ×2 (04:45→09:26)
[2017-02-14 05:55] LABS: HEMATOCRIT 33.9 % (39.0-51.0); MEAN CELL VOLUME 91.3 FL (80.0-100.0); MEAN CORPUSCULAR HEMOGLOBIN 29.7 PG (27.0-34.0); MEAN CORPUSCULAR HGB CONC 32.5 % (32.0-36.0); PLATELET COUNT 210 TH/MM3 (150-450); RED BLOOD COUNT 3.71 MIL/MM3 (4.50-5.90); RED CELL DISTRIBUTION WIDTH 16.5 % (11.6-17.2); REVIEW FLAG FINAL
[2017-02-14 06:02] LABS: BICARBONATE 21.9 MEQ/L (21.0-32.0); POTASSIUM 4.3 MEQ/L (3.5-5.1)
[2017-02-14] MEDS: INSULIN NovoLIN REGULAR SUPPLEMENTAL SCALE SQ SCH ×3 (06:08→18:00)
[2017-02-14] MEDS ORDERED: LORazepam 2 MG/ML VIAL ONE (07:54)
[2017-02-14] MEDS ORDERED: LORazepam 2 MG/ML VIAL IV ONE (08:15)
[2017-02-14] MEDS: ASPIRIN 81 MG CHEW TAB CHEW SCH (09:26)
[2017-02-14] MEDS: LACTOBACILLUS ACIDOPHILUS TAB PO SCH ×3 (09:26→17:33)
[2017-02-14] MEDS: AZITHROMYCIN INJ 500 MG in SODIUM CHLOR 0.9% 250 ML INJ 250 ML IV SCH (09:26)
[2017-02-14] MEDS: metroNIDAZOLE 500 MG INJ 100 ML IV SCH ×2 (09:28→17:33)
[2017-02-14] MEDS: CHLORHEXIDINE 0.12% (ORAL KIT) 15 ML CUP MT SCH ×2 (09:28→19:39)
--- NOTE | 2017-02-14 10:13 | HHI.IDPN ---
Subjective Subjective Remarks Notes reviewed Febrile to 101+ this morning Sedated on the vent BP ok, not on pressors Not a lot of secretions Sputum C/S pending; G/S not a lot of WBC seen is an 86 y/o AAM ([facility] by ) with Dementia who presented with worsening mentation and diagnosed with Pneumonia and Cdiff positive diarrhea. PM records from 2006 indicate no allergies no surgeries. ID following for PNA and Cdiff present on admission. Antibiotics Cefepime IV (for worsening PNA) Flagyl IV (cdiff and anaerobic coverage) Azithro (atypical coverage) Lines Line sites with no e.o infection Past Medical History Dementia. Allergies: Coded Allergies: No Known Allergies (Verified , 11/22/06) UNOBTAINABLE (Unverified , 02/09/17) Objective . Vital Signs Date Time Temp Pulse Resp B/P Pulse Ox O2 Delivery O2 Flow Rate FiO2 02/14/17 07:53 97 40 02/14/17 06:00 90 02/14/17 04:00 101.1 94 20 111/63 95 02/14/17 04:00 40 02/14/17 04:00 94 02/14/17 03:40 93 40 02/14/17 02:14 93 40 02/14/17 02:00 93 02/14/17 00:00 100.0 92 22 91/57 94 02/14/17 00:00 92 02/14/17 00:00 40 02/13/17 22:00 92 02/13/17 21:15 97 40 02/13/17 20:00 40 02/13/17 20:00 98.8 89 20 110/65 02/13/17 20:00 89 02/13/17 18:00 82 02/13/17 16:24 92 40 02/13/17 16:00 90 02/13/17 16:00 99.0 90 22 87/63 100 02/13/17 16:00 40 02/13/17 14:00 82 02/13/17 12:00 93 02/13/17 12:00 100.4 93 17 105/61 96 02/13/17 12:00 40 02/13/17 11:00 104 02/13/17 10:55 98 40 02/13/17 02/13/17 02/14/17 15:00 23:00 07:00 Intake Total 2287 ml 1221 ml 1799 ml Output Total 100 ml 100 ml 200 ml Balance 2187 ml 1121 ml 1599 ml IV Total 1299 ml 676 ml 886 ml Tube Feeding 388 ml 245 ml 313 ml Other 600 ml 300 ml 600 ml Output Urine Total 100 ml 100 ml 200 ml Stool Total 0 ml # Bowel Movements 0 . Laboratory Tests Test 02/13/17 02/14/17 02:30 05:19 White Blood Count 8.3 TH/MM3 10.0 TH/MM3 Red Blood Count 3.64 MIL/MM3 3.71 MIL/MM3 Hemoglobin 10.8 GM/DL 11.0 GM/DL Hematocrit 32.7 % 33.9 % Mean Corpuscular Volume 89.9 FL 91.3 FL Mean Corpuscular Hemoglobin 29.7 PG 29.7 PG Mean Corpuscular Hemoglobin 33.0 % 32.5 % Concent Red Cell Distribution Width 16.1 % 16.5 % Platelet Count 220 TH/MM3 210 TH/MM3 Mean Platelet Volume 10.9 FL 11.4 FL Laboratory Tests Test 02/12/17 02/12/17 02/13/17 02/14/17 14:16 21:43 02:30 05:19 B-Type Natriuretic Peptide 54 PG/ML Total Creatine Kinase 606 U/L 537 U/L Creatine Kinase MB 1.8 NG/ML 1.8 NG/ML Creatine Kinase MB % 0.3 % 0.3 % Troponin I 0.19 NG/ML 0.19 NG/ML Sodium Level 145 MEQ/L 137 MEQ/L Potassium Level 4.2 MEQ/L 4.3 MEQ/L Chloride Level 112 MEQ/L 105 MEQ/L Carbon Dioxide Level 19.4 MEQ/L 21.9 MEQ/L Anion Gap 14 MEQ/L 10 MEQ/L Blood Urea Nitrogen 47 MG/DL 57 MG/DL Creatinine 3.31 MG/DL 4.14 MG/DL Estimat Glomerular Filtration 22 ML/MIN 17 ML/MIN Rate Random Glucose 217 MG/DL 161 MG/DL Calcium Level 8.2 MG/DL 7.6 MG/DL Phosphorus Level 2.5 MG/DL Albumin 1.9 GM/DL Microbiology Date/Time Procedure Status Source Growth 02/12/17 17:30 Legionella Antigen - Final Complete Urine Clean Catch PRESUMPTIVE NEGATIVE FOR LEGIONELLA P... 02/12/17 17:30 Streptococcus pneumoniae Antigen (M - Final Complete Urine Clean Catch PRESUMPTIVE NEGATIVE FOR STREPTOCOCCU... 02/12/17 21:23 Urine Culture - Final Complete Urine Catheterized Urine NO GROWTH IN 48 HOURS. 02/13/17 10:45 Gram Stain - Final Resulted Sputum Endotracheal 02/13/17 10:45 Sputum Culture Resulted Sputum Endotracheal Pending Imaging Chest X-Ray 02/13/17 0600 Signed Impressions: Service Date/Time: Monday, February 13, 2017 04:07 - CONCLUSION: 1. Persistent right basilar consolidation and probable small pleural effusion. 2. Minimal density in the left retrocardiac region. Gregory Hoover MD Chest X-Ray 02/12/17 0000 Signed Impressions: Service Date/Time: Sunday, February 12, 2017 15:11 - CONCLUSION: Interval intubation. Diffuse right lung pleural-parenchymal opacity Tra Garibay MD Chest X-Ray 02/12/17 0000 Signed Impressions: Service Date/Time: Sunday, February 12, 2017 13:53 - CONCLUSION: Increasing right basilar opacity characteristic of a pleural effusion with associated volume loss and/or airspace consolidation. Tra Ma MD Last Impressions Chest X-Ray 02/09/17 0000 Signed Impressions: Service Date/Time: Thursday, February 09, 2017 12:49 - CONCLUSION: Increasing consolidative changes right lung base. Arya Horton MD FACR Head CT 02/07/171946 Signed Impressions: Service Date/Time: Tuesday, February 07, 2017 20:03 - CONCLUSION: No acute intracranial injury Tra Garibay MD Physical Exam GENERAL: Sedated on the vent. NAD SKIN: Warm and dry, no generalized rash or ecchymosis. HEENT: [place] conjunctivae. No scleral icterus. No injection or drainage. ET in mouth. NECK: Trachea midline. Supple, nontender, no meningeal signs. CARDIOVASCULAR: Rregular S1S2 RESPIRATORY: Decreased BS worse on R than L GASTROINTESTINAL: Abdomen mildly distended, bowel sounds are present, hypoactive. No reaction to palpation MUSCULOSKELETAL: Extremities without clubbing, cyanosis, or edema. NEUROLOGICAL: Sedated PSYCH: Unable to assess LINE: PIV with no evidence of infection Assessment & Plan Remarks IMPRESSION Respiratory failure, due to worsening pneumonia, likely due to recurrent aspiration Pneumonia present on admission: likely aspiration in setting of dementia. Cdiff positive diarrhea Ongoing aspiration. Dementia Acute metabolic encephalopathy Persistent fevers: Concomitant antibiotics for Pneumonia ppting Cdiff, ongoing aspiration. Renal insufficiency, worsening, likely multifactorail RECOMMENDATION Continue Cefepime IV to cover more GNR Continue flagyl, currently being given IV due to aspiration problem - for C diff and anaerobic coverage Continue Azithro oral. - for atypical coverage Follow C/S - adjust Abx once available Follow temps Monitor progress Tricia Garcia MD Feb 14, 2017 10:13
--- NOTE | 2017-02-14 11:28 | HHI.NPPN ---
Subjective General Problems: Hypotension Renal Failure: Chronic, Acute Interval History Remains intubated, sedated, unresponsive. The nurse tells me he had focal seizure activity requiring IV ativan. He has become oliguric, renal function is worse. (Juliana Saravia) Review of Systems General General Remarks unable to obtain due to intubation/sedation (Juliana Saravia) Objective Data Data 02/13/17 02/14/17 19:00 07:00 Intake Total 2287 ml 3020 ml Output Total 100 ml 300 ml Balance 2187 ml 2720 ml IV Total 1299 ml 1562 ml Tube Feeding 388 ml 558 ml Other 600 ml 900 ml Output Urine Total 100 ml 300 ml Stool Total 0 ml # Bowel Movements 0 Vital Signs Date Time Temp Pulse Resp B/P Pulse Ox O2 Delivery O2 Flow Rate FiO2 02/14/17 07:53 97 40 02/14/17 06:00 90 02/14/17 04:00 101.1 94 20 111/63 95 02/14/17 04:00 40 02/14/17 04:00 94 02/14/17 03:40 93 40 02/14/17 02:14 93 40 02/14/17 02:00 93 02/14/17 00:00 100.0 92 22 91/57 94 02/14/17 00:00 92 02/14/17 00:00 40 02/13/17 22:00 92 02/13/17 21:15 97 40 02/13/17 20:00 40 02/13/17 20:00 98.8 89 20 110/65 02/13/17 20:00 89 02/13/17 18:00 82 02/13/17 16:24 92 40 02/13/17 16:00 90 02/13/17 16:00 99.0 90 22 87/63 100 02/13/17 16:00 40 02/13/17 14:00 82 02/13/17 12:00 93 02/13/17 12:00 100.4 93 17 105/61 96 02/13/17 12:00 40 (Juliana Saravia) -: 02/14/17 0519 02/14/17 0519 Imaging Last Impressions Chest X-Ray 02/13/17 0600 Signed Impressions: Service Date/Time: Monday, February 13, 2017 04:07 - CONCLUSION: 1. Persistent right basilar consolidation and probable small pleural effusion. 2. Minimal density in the left retrocardiac region. Gregory Hoover MD Head CT 02/07/171946 Signed Impressions: Service Date/Time: Tuesday, February 07, 2017 20:03 - CONCLUSION: No acute intracranial injury Tra Garibay MD Tubes & Lines: [place]erman Drip Comment Cardizem, fentanyl (on hold), Neosynepherine, propofol (Rani,Juliana B. MANUAL WINDER) Physical Exam General Appearance: No Acute Distress, Sleeping, Malnourished Appearance Remarks frail, elderly AAM intubated/sedated (Rani,Juliana B. MANUAL WINDER) Eyes Eye Exam: Pupils Equal (Rani,Juliana B. MANUAL WINDER) Throat Throat Exam: Oral Mucosa [place] & Moist Throat Remarks ETT, OG tube (Rani,Juliana B. MANUAL WINDER) Pulmonary Resp Exam: Breath Sounds Equal, Crackles, Rhonchi Resp Remarks vented (Rani,Juliana B. MANUAL WINDER) Cardiology CV Exam: Regular, Tachycardia (Rani,Juliana B. MANUAL WINDER) Gastrointestinal/Abdomen GI Exam: Soft, Non-Tender, Bowel Sounds Present (Rani,Juliana B. MANUAL WINDER) Musculoskeletal MS Exam: Joints Intact, Atrophy (Rani,Juliana B. MANUAL WINDER) Integumentary Skin Exam: Warm, Dry (Rani,Juliana B. MANUAL WINDER) Extremeties Extremities Exam: No Edema, Pedal Pulses Palpable (Rani,Juliana B. MANUAL WINDER) Neurologic Neuro Exam: Unresponsive, Sedated (Rani,Juliana B. MANUAL WINDER) VTE Prophylaxis Device: SCDs (Rani,Juliana B. MANUAL WINDER) Assessment/Plan Assessment Summary: WILLIE/Acute Renal Failure Problem List: (1) Acute renal failure Plan: in a patient whose baseline creatinine was 1.7 in 2006 ATN from renal hypoperfusion, has become oliguric no current electrolyte issues was given a trial of IVF, now with positive fluid balance stop IVF, begin Bumex 2mg IV BID, monitor response it is likely his renal function will continue to decline, he may need dialysis apparently there is an issue with POA and who makes decisions; we will wait one more day prior to preceding he is hospice appropriate at this time continue current treatment with above changes renal panel in am, monitor urine output use pressors to maintain adequate MAP > 65mmHg avoid nephrotoxins, renally dose medications when appropriate (2) Encephalopathy Plan: multifactorial, has hx of dementia was septic and in acute hypoxic respiratory failure now intubated reevaluate when off sedation continue supportive measures apparently had seizure, EEG taken (3) Dysphagia Plan: will need PEG placement due to chronic aspiration (4) Pneumonia Plan: likely aspiration related on cefepime and Zithromax, IV flagyl also (5) Clostridium difficile infection Plan: on IV flagyl contact precautions (Juliana Saravia) Plan patient was seen and examined. No improvement in urine output. Start Bumex. Stop IVF. Discussed with Dr. Dutta. (Mauro Dallas MD) Problem Qualifiers (1) Pneumonia: Qualified Code: J18.1 - Pneumonia of right lower lobe due to infectious organism Juliana Saravia Feb 14, 2017 11:28 Mauro Dallas MD Feb 15, 2017 11:16
--- NOTE | 2017-02-14 11:38 | HHI.CCPN ---
Subjective Remarks/Hospital Course Hospital Course: This is a 86yM who presented from home with altered mental status and end-stage dementia. His hospital course has been complicated by C. Diff and pneumonia for which he is on appropriate therapy. He has been noted to have lpkva-hn-fsewaba aspiration during this hospital stay and has been NPO. Today, a rapid response was called for acute respiratory distress and hypoxia. I was called by Dr. Velez at the rapid response. He believe this is an aspiration event given the patient's clinical history. I immediately went and evaluated the patient. He is labored and in distress. his spo2 is 93% on non-rebreather. He is also in what appears to be new-onset atrial fibrillation with RVR and a HR 160s. Brief review of the pertinent laboratory data demonstrate worsening acute kidney injury, worsening anion-gap metabolic acidosis. Critical care medicine is consulted to evaluate and manage his severe respiratory distress and afib RVR. Unfortunately, the patient is obtunded and cannot provide any additional history. Subjective: 02/13: no clinical improvements. remains in multiorgan system failure. diltiazem drip weaned to off, but remains on phenylephrine. talked with nephrology who feel clinically, despite some element of JVD, that patient is clinically intravascularly hypovolemic and they recommend gentle ivf hydration, which I am ok with as a trial. mental status poor. kidney injury persists. palliative involved. apparently daughter is not health care surrogate legally, but has been making decisions in the outpatient setting. multiple disagreements within the family. appreciate palliative involvement. 02/14: Renal function continues to worsen and today 57/4.1. D/w Nephrology. If family wants everything done, will need to proceed with HD. Tmax 101.1. ID following Objective Vital Signs Date Time Temp Pulse Resp B/P Pulse Ox O2 Delivery O2 Flow Rate FiO2 02/14/17 07:53 97 40 02/14/17 06:00 90 02/14/17 04:00 101.1 20 111/63 02/12/17 13:23 Aerosol Mask 10.00 Intake and Output 02/13/17 02/13/17 02/14/17 08:00 16:00 00:00 Intake Total 1016 ml 2287 ml 1221 ml Output Total 150 ml 100 ml 100 ml Balance 866 ml 2187 ml 1121 ml Result Diagram: 02/14/17 0519 02/14/17 0519 Other Results Microbiology Date/Time Procedure Status Source Growth 02/12/17 17:30 Legionella Antigen - Final Complete Urine Clean Catch PRESUMPTIVE NEGATIVE FOR LEGIONELLA P... 02/12/17 17:30 Streptococcus pneumoniae Antigen (M - Final Complete Urine Clean Catch PRESUMPTIVE NEGATIVE FOR STREPTOCOCCU... 02/12/17 21:23 Urine Culture - Final Complete Urine Catheterized Urine NO GROWTH IN 48 HOURS. Imaging CXR pending. prior CXR on 02/09 with evidence of RLL consolidation Objective Remarks gen: Elderly male, cachectic. critically ill. intubated. heent: perrl. mucous membranes dry neck: + jvd. trachea midline chest: 8.[address] coarse rales bilaterally. cv: tachycardic rate, mostly regular rhythm. Frequent PACs by tele. abd: soft, nontender, nondistended. no guarding. extr: no peripheral edema. distal pulses 2+ neuro: RASS -3. weakly withdraws to pain. No spontaneous eye opening Procedures None Urinary Catheter: Yes Assessment to: Continue A/P Assessment and Plan Assessment: 86yM with end-stage dementia, liwly-hk-[id number] aspiration, now with severe respiratory distress, acute hypoxic respiratory failure, worsening acute kidney injury, type II demand ischemia, distributive shock. Appreciate palliative care involvement. Patient remains very critically ill. I agree given the patient's severe dementia at baseline, and his age, this may not be a survivable event and hospital stay for him. For now, our goals remain aggressive as he is a documented FULL CODE. Plan by Systems: Neuro: Acute metabolic encephalopathy End-stage dementia -- frequent neuro checks -- avoid long-acting sedating meds -- CT head 02/07 negative for acute disease Respiratory: Acute hypoxic respiratory failure Aspiration pneumonitis erpty-tq-ykmdyvz aspiration -- vent bundle -- HOB at 30 degrees -- wean fio2 for goal spo2 > 90% -- no SBT today. mental status poor. -- Continue broad-spectrum antibiotics Cardiovascular: Atrial Fibrillation with Rapid Ventricular Response- resolved. Sinus tachycardia Distributive shock -- continue cardizem drip for HR control -- continue phenylephrine for goal map > 65 mmHg. -- Patient was getting gentle ivf hydration per nephrology. Due to oliguria, started on Bumex 2 mg IV q12 Renal: Acute Kidney Injury -- Bumex 2 mg IV q12 starting 02/14 -- nephrology consulted and following -- Erasmo FEN/GI: Acute protein calorie malnutrition- severe C.Difficile Colitis Diarrhea Acute on chronic Aspiration -- ICU electrolyte protocol -- TF with Jevity. Heme/ID: C.Difficile Colitis Sepsis acute on chronic aspiration -- ID on board -- ABX per ID -- Continues to spike fever Endocrine: Hyperglycemia of critical illness -- SSI, q6h, med scale Prophylaxis: SCDs, SQH, Protonix Dispo: remain in the ICU. he remains critically ill. If family wants aggressive care will need HD Critical Care Time: 32 minutes, exclusive of separately billable procedures. Tamera Dutta MD Feb 14, 2017 11:38
[2017-02-14] MEDS: CEFEPIME INJ 1,000 MG in SODIUM CHLORIDE 0.9% INJ 100 ML IV SCH (13:09)
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
[2017-02-14] MEDS: BUMETANIDE INJ 1 MG/4 ML VIAL IV PUSH SCH (17:33)
--- NOTE | 2017-02-14 19:34 | MG ---
cc: MARTIR MYLES MD Lab No: [id number] Date: 02/14/17 Age: 86 Sex: M Race: DATE OF : 1930 HISTORY 86-year-old. Stat EEG ordered by the wound care coordinator for upper extremity twitching. DESCRIPTION Generalized delta activity noted 1-3 Hz, 20-40 microvolts. No driving with photic stimulation. Limited EEG variability reactivity. Single-lead EKG showing what appeared be sinus rhythm although at times there is artifact. INTERPRETATION Moderate to severe encephalopathy. No epileptic activity. Clinical correlation. Martir Myles MD MG/BJF /5:29 PM /7:29 PM
[2017-02-14] MEDS: PHENYLEPHRINE 40 MG/D5W 496 ML ADMIX IV SCH ×2 (19:39)
[2017-02-14] MEDS: fentaNYL DRIP 250 ML IV SCH (20:58)
[2017-02-15] VITALS (19 sets, daily range): BP systolic 100–147; BP diastolic 51–84; PULSE 87–112; RESP 15–17; TEMP 98.2–100.5; O2SAT 97–100
--- NOTE | 2017-02-15 00:11 | PD.CARD.PN ---
Subjective Subjective Remarks Patient was seen this afternoon, unable to document at the time No events over night, currently stable on the vent with pressor therapy Objective Medications Current Medications Medications (Trade) Dose Ordered Sig/Connor Route Start Time Stop Time Status Last Admin (Zofran Inj) 4 mg Q8H PRN IV PUSH 02/07/17 21:45 (Apresoline) 50 mg BID PO 02/08/17 21:00 Hold 02/10/17 21:41 (Cozaar) 100 mg DAILY PO 02/09/17 09:00 Hold 02/10/17 10:27 (Toprol Xl) 50 mg DAILY PO 02/08/17 13:00 Hold 02/10/17 10:27 (Tylenol) 500 mg Q4H PRN PO 02/08/17 13:15 02/14/17 09:26 (Lactinex) 1 tab TID PO 02/09/17 13:00 02/14/17 17:33 Acetaminophen 650 mg 650 mg Q4H PRN RECTAL 02/10/17 01:00 02/12/17 01:37 (Flagyl 500 Mg Inj) 100 ml @ 100 mls/hr Q8H IV 02/12/17 08:00 02/14/17 17:33 Clonidine 1 patch 1 patch Q7D T-DERMAL 02/12/17 09:00 Hold 02/12/17 10:04 Azithromycin 500 mg/Sodium Chloride 250 ml @ 250 mls/hr Q24H IV 02/12/17 09:00 02/14/17 09:26 Cefepime HCl 1000 mg/Sodium Chloride 100 ml @ 200 mls/hr Q24H IV 02/12/17 14:00 02/14/17 13:09 (Diprivan 1000 Mg/100ml Inj) 100 ml @ 0 mls/hr TITRATE IV 02/12/17 14:30 02/13/17 08:07 (Peridex 0.12% Liq) 15 ml BID@08,20 MT 02/12/17 20:00 02/14/17 19:39 (D50w (Vial) Inj) 25 ml UNSCH PRN IV PUSH 02/12/17 14:30 (NovoLIN R SUPPLEMENTAL SCALE) 1 Q6HR SQ 02/12/17 18:00 02/14/17 13:08 Water 300 ml 300 ml Q4HR G-TUBE 02/12/17 16:00 02/14/17 19:39 Phenylephrine HCl 40 mg/Dextrose 500 ml @ 0 mls/hr TITRATE IV 02/12/17 15:00 02/14/17 19:39 (Cardizem Inj/NS Inj) 125 ml @ 0 mls/hr TITRATE IV 02/12/17 16:00 02/13/17 06:00 (Aspirin Chew) 81 mg DAILY CHEW 02/13/17 09:00 02/14/17 09:26 Miscellaneous Information Patient in critical care unit? Ass... Q361D .XX 02/12/17 22:00 (Chlorhexidine 2% Cloth) 3 pack DAILY@04 TOPICAL 02/13/17 04:00 02/17/17 04:01 02/14/17 01:08 Chlorhexidine Gluconate 3 pack 3 pack UNSCH PRN TOPICAL 02/12/17 21:45 02/17/17 21:39 (fentaNYL DRIP) 250 ml @ 0 mls/hr TITRATE IV 02/13/17 01:45 02/14/17 20:58 (Bumex Inj) 2 mg BID@,18 IV PUSH 02/14/17 18:00 02/14/17 17:33 Vital Signs / I&O Vital Signs Date Time Temp Pulse Resp B/P Pulse Ox O2 Delivery O2 Flow Rate FiO2 02/14/17 22:02 98 40 02/14/17 22:00 103 02/14/17 20:01 98 40 02/14/17 20:00 99.8 97 21 150/80 99 02/14/17 20:00 97 02/14/17 20:00 40 02/14/17 18:00 87 02/14/17 16:00 99.4 74 15 118/56 99 02/14/17 16:00 74 02/14/17 16:00 40 02/14/17 15:33 100 40 02/14/17 14:00 71 02/14/17 12:07 98 40 02/14/17 12:00 98.7 76 15 98/55 97 02/14/17 12:00 81 02/14/17 12:00 40 02/14/17 10:26 15 02/14/17 10:00 81 02/14/17 08:00 97 02/14/17 08:00 40 02/14/17 08:00 100.1 97 15 115/53 95 02/14/17 07:53 97 40 02/14/17 06:00 90 02/14/17 04:00 101.1 94 20 111/63 95 02/14/17 04:00 40 02/14/17 04:00 94 02/14/17 03:40 93 40 02/14/17 02:14 93 40 02/14/17 02:00 93 I/O 02/14/17 02/14/17 02/14/17 02/15/17 02/15/17 02/15/17 07:00 15:00 23:00 07:00 15:00 23:00 Intake Total 1799 ml 2136 ml 920 ml Output Total 200 ml 250 ml 800 ml Balance 1599 ml 1886 ml 120 ml Intake Oral 0 ml IV Total 886 ml 1192 ml 369 ml Tube Feeding 313 ml 344 ml 251 ml Other 600 ml 600 ml 300 ml Output Urine Total 200 ml 250 ml 800 ml Stool Total 0 ml # Bowel Movements 0 Physical Exam GENERAL: Sedated on the vent SKIN: Warm and dry. HEAD: Atraumatic. Normocephalic. EYES: Pupils equal and round. No scleral icterus. No injection or drainage. ENT: No nasal bleeding or discharge. Mucous membranes pink and moist. NECK: Trachea midline. Mild JVD CARDIOVASCULAR: Regular rate, mildly tachycardic RESPIRATORY: No accessory muscle use. Decreased breath sounds bilaterally, rhonchi GASTROINTESTINAL: Abdomen soft, non-tender, nondistended. Hepatic and splenic margins not palpable. MUSCULOSKELETAL: Extremities without clubbing, cyanosis, or edema. No obvious deformities. NEUROLOGICAL: Awake and alert. No obvious cranial nerve deficits. Motor grossly within normal limits. Five out of 5 muscle strength in the arms and legs. Normal speech. PSYCHIATRIC: Appropriate mood and affect; insight and judgment normal. Laboratory Laboratory Tests Test 02/14/17 05:19 White Blood Count 10.0 TH/MM3 Red Blood Count 3.71 MIL/MM3 Hemoglobin 11.0 GM/DL Hematocrit 33.9 % Mean Corpuscular Volume 91.3 FL Mean Corpuscular Hemoglobin 29.7 PG Mean Corpuscular Hemoglobin 32.5 % Concent Red Cell Distribution Width 16.5 % Platelet Count 210 TH/MM3 Mean Platelet Volume 11.4 FL Sodium Level 137 MEQ/L Potassium Level 4.3 MEQ/L Chloride Level 105 MEQ/L Carbon Dioxide Level 21.9 MEQ/L Anion Gap 10 MEQ/L Blood Urea Nitrogen 57 MG/DL Creatinine 4.14 MG/DL Estimat Glomerular Filtration 17 ML/MIN Rate Random Glucose 161 MG/DL Calcium Level 7.6 MG/DL Assessment and Plan Problem List: (1) Pneumonia (2) Sepsis (3) Atrial fibrillation with RVR (4) Renal insufficiency (5) Elevated troponin I level (6) Encephalopathy (7) Clostridium difficile infection (8) Acute respiratory failure Assessment and Plan 1) Currently stable but guarded, 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
[2017-02-15] MEDS: metroNIDAZOLE 500 MG INJ 100 ML IV SCH ×3 (01:03→16:59)
[2017-02-15] MEDS: RESP: ALBUTEROL 2.5 MG/IPRATROPIUM 0.5 MG NEB (SCH) INH ×4 (02:56→20:26)
[2017-02-15] MEDS: FREE WATER G-TUBE SCH ×6 (04:00→20:00)
[2017-02-15] MEDS: CHLORHEXIDINE GLUCONATE 2 % 1 PACK (2 CLOTHS)(taper/protocol) TOPICAL SCH (04:00)
[2017-02-15] MEDS: ACETAMINOPHEN 500 MG CPLT PO PRN (04:37)
--- NOTE | 2017-02-15 05:01 | RADRPT ---
EXAM DATE/TIME: 02/15/2017 02:20 [place] COMPARISON: CHEST SINGLE AP, February 13, 2017, 4:07. INDICATIONS : Shortness of breath, possible pulmonary disease. MEDICAL HISTORY : None. SURGICAL HISTORY : None. ENCOUNTER: Subsequent ACUITY: 4 - 6 days PAIN SCORE: Non-responsive. LOCATION: Bilateral chest FINDINGS: A single view of the chest demonstrates increasing density throughout the right hemithorax. Moderate right pleural effusion. Left basilar atelectasis. Endotracheal tube nasogastric tube are unchanged.. Osseous structures are intact. CONCLUSION: Increasing density throughout the right hemithorax with moderate right-sided pleural effusion and pro bable right basilar atelectasis. Gregory Hoover MD on February 15, 2017 at 4:56 Board Certified Radiologist. This report was verified electronically.
[2017-02-15] MEDS: INSULIN NovoLIN REGULAR SUPPLEMENTAL SCALE SQ SCH ×4 (06:00→18:00)
[2017-02-15 06:07] LABS: ALT (GPT) 42 U/L (12-78); ANION GAP 10 MEQ/L (5-15); AST (GOT) 197 U/L (15-37); BICARBONATE 20.3 MEQ/L (21.0-32.0); BLOOD UREA NITROGEN 53 MG/DL (7-18); CHLORIDE 105 MEQ/L (98-107); GLOMERULAR FILTRATION RATE 19 ML/MIN (>89); MAGNESIUM 2.4 MG/DL (1.5-2.5); POTASSIUM 4.4 MEQ/L (3.5-5.1); SODIUM (NA) 135 MEQ/L (136-145)
[2017-02-15 06:09] LABS: ALKALINE PHOSPHATASE 58 U/L (45-117); TOTAL BILIRUBIN ADULT 0.2 MG/DL (0.2-1.0)
[2017-02-15 07:02] LABS: AUTOMATED NEUTROPHIL # 6.7 TH/MM3 (1.8-7.7); BASOPHIL % 0.4 % (0.0-2.0); EOSINOPHIL % 0.2 % (0.0-4.0); HEMATOCRIT 34.9 % (39.0-51.0); HEMO FLAGS DIFF FINAL; LYMPHOCYTE # 1.1 TH/MM3 (1.0-4.8); MEAN CELL VOLUME 91.5 FL (80.0-100.0); MEAN CORPUSCULAR HEMOGLOBIN 29.9 PG (27.0-34.0); MEAN CORPUSCULAR HGB CONC 32.7 % (32.0-36.0); MONO % 11.8 % (0.0-8.0); NEUT % 75.6 % (16.0-70.0); PLATELET COUNT 194 TH/MM3 (150-450); RED BLOOD COUNT 3.81 MIL/MM3 (4.50-5.90); RED CELL DISTRIBUTION WIDTH 16.7 % (11.6-17.2); WHITE BLOOD COUNT 8.8 TH/MM3 (4.0-11.0)
[2017-02-15] MEDS: AZITHROMYCIN INJ 500 MG in SODIUM CHLOR 0.9% 250 ML INJ 250 ML IV SCH (08:53)
[2017-02-15] MEDS: ASPIRIN 81 MG CHEW TAB CHEW SCH (08:54)
[2017-02-15] MEDS: BUMETANIDE INJ 1 MG/4 ML VIAL IV PUSH SCH ×2 (08:54→18:09)
[2017-02-15] MEDS: LACTOBACILLUS ACIDOPHILUS TAB PO SCH ×3 (08:55→18:08)
[2017-02-15] MEDS: CHLORHEXIDINE 0.12% (ORAL KIT) 15 ML CUP MT SCH ×2 (10:05→20:00)
--- NOTE | 2017-02-15 11:10 | HHI.NPPN ---
Subjective General Problems: Hypotension Renal Failure: Chronic, Acute Interval History He remains intubated, sedated. Off pressors and Cardizem infusion. Renal function is better. He has developed fevers overnight. (Juliana Saravia ) Review of Systems General General Remarks unable to obtain due to intubation/sedation (Juliana Saravia) Objective Data Data 02/14/17 02/15/17 19:00 07:00 Intake Total 2136 ml 2113 ml Output Total 250 ml 1300 ml Balance 1886 ml 813 ml Intake Oral 0 ml IV Total 1192 ml 657 ml Tube Feeding 344 ml 556 ml Other 600 ml 900 ml Output Urine Total 250 ml 1300 ml Stool Total 0 ml # Bowel Movements 0 Vital Signs Date Time Temp Pulse Resp B/P Pulse Ox O2 Delivery O2 Flow Rate FiO2 02/15/17 07:27 100 35 02/15/17 06:00 112 02/15/17 04:03 97 35 02/15/17 04:00 102 02/15/17 04:00 100.5 102 15 147/64 98 02/15/17 04:00 40 02/15/17 02:00 101 02/15/17 01:02 100 35 02/15/17 00:00 100 02/15/17 00:00 99.7 102 15 120/72 99 02/15/17 00:00 40 02/14/17 22:02 98 40 02/14/17 22:00 103 02/14/17 20:01 98 40 02/14/17 20:00 99.8 97 21 150/80 99 02/14/17 20:00 97 02/14/17 20:00 40 02/14/17 18:00 87 02/14/17 16:00 99.4 74 15 118/56 99 02/14/17 16:00 74 02/14/17 16:00 40 02/14/17 15:33 100 40 02/14/17 14:00 71 02/14/17 12:07 98 40 02/14/17 12:00 98.7 76 15 98/55 97 02/14/17 12:00 81 02/14/17 12:00 40 (Juliana Saravia) -: 02/15/17 0445 02/15/17 0445 Imaging Last 72 hours Impressions Chest X-Ray 02/15/17 0600 Signed Impressions: Service Date/Time: February 02:20 - CONCLUSION: Increasing density throughout the right hemithorax with moderate right-sided pleural effusion and probable right basilar atelectasis. Gregory Hoover MD Chest X-Ray 02/13/17 0600 Signed Impressions: Service Date/Time: Monday, February 13, 2017 04:07 - CONCLUSION: 1. Persistent right basilar consolidation and probable small pleural effusion. 2. Minimal density in the left retrocardiac region. Gregory Hoover MD Tubes & Lines: [place] Drip Comment fentanyl (Juliana SaraviaP) Physical Exam General Appearance: No Acute Distress, Sleeping, Malnourished Appearance Remarks frail, elderly AAM intubated/sedated (uJliana Saravia B. PRODUCTION MACHINE TENDER) Eyes Eye Exam: Pupils Equal (Juliana Saravia B. PRODUCTION MACHINE TENDER) Throat Throat Exam: Oral Mucosa [place] & Moist Throat Remarks ETT, OG tube (Juliana Saravia B. PRODUCTION MACHINE TENDER) Pulmonary Resp Exam: Breath Sounds Equal, Crackles, Rhonchi Resp Remarks vented (Juliana Saravia B. PRODUCTION MACHINE TENDER) Cardiology CV Exam: Regular, Tachycardia (Juliana Saravia B. PRODUCTION MACHINE TENDER) Gastrointestinal/Abdomen GI Exam: Non-Tender, Bowel Sounds Present GI Remarks flat, firm, grimaces to palpation (Juliana Saravia B. PRODUCTION MACHINE TENDER) Musculoskeletal MS Exam: Joints Intact, Atrophy, Unable to Ambulate (Juliana Saravia B. PRODUCTION MACHINE TENDER) Integumentary Skin Exam: Clear, Warm, Dry, Intact (Juliana Saravia B. PRODUCTION MACHINE TENDER) Extremeties Extremities Exam: No Edema, Pedal Pulses Palpable (Juliana Saravia B. PRODUCTION MACHINE TENDER) Neurologic Neuro Exam: Unresponsive, Sedated (Juliana Saravia B. PRODUCTION MACHINE TENDER) VTE Prophylaxis Device: SCDs (Juliana Saravia B. PRODUCTION MACHINE TENDER) Assessment/Plan Assessment Summary: WILLIE/Acute Renal Failure Problem List: (1) Acute renal failure Plan: in a patient whose baseline creatinine was 1.7 in 2006 ATN from renal hypoperfusion renal function has improved, urine output increased K is normal, C02 slightly low, monitor for now continue diuresis with Bumex BID, monitor response use pressors to maintain adequate MAP > 65mmHg, he is no longer requiring avoid nephrotoxins, renally dose medications when appropriate daily renal panel resume antihypertensives when clinically appropriate (2) Encephalopathy Plan: multifactorial, has hx of dementia was septic and in acute hypoxic respiratory failure continue supportive measures EEG reviewed, (3) Dysphagia Plan: likely will need PEG placement due to chronic aspiration (4) Pneumonia Plan: likely aspiration related on cefepime and Zithromax, IV flagyl also appreciate respiratory therapy assistance continue vent management, ween per protocol current vent settings: 15/500/40/7 (5) Clostridium difficile infection Plan: on IV flagyl contact precautions (Juliana Saravia) Plan patient was seen and examined. His urine output has improved in response to diuretic, renal function is better. Abdomen is distended, rigid. Discussed with Dr. Dutta. No need for dialysis today. (Mauro Dallas MD) Problem Qualifiers (1) Pneumonia: Qualified Code: J18.1 - Pneumonia of right lower lobe due to infectious organism Juliana Saravia Feb 15, 2017 11:10 Mauro Dallas MD Feb 15, 2017 16:30
[2017-02-15] MEDS: CEFEPIME INJ 1,000 MG in SODIUM CHLORIDE 0.9% INJ 100 ML IV SCH (13:04)
--- NOTE | 2017-02-15 13:15 | HHI.IDPN ---
Subjective Subjective Remarks Notes reviewed Still with fevers renal funstion same Sedated on the vent BP ok, not on pressors Not a lot of secretions Sputum C/S negative. No BM is an 86 y/o AAM ([place] by ) with Dementia who presented with worsening mentation and diagnosed with Pneumonia and Cdiff positive diarrhea. PM records from 2006 indicate no allergies no surgeries. ID following for PNA and Cdiff present on admission. Antibiotics Cefepime IV (for worsening PNA) Flagyl IV (cdiff and anaerobic coverage) Azithro (atypical coverage) Lines Line sites with no e.o infection Past Medical History Dementia. Allergies: Coded Allergies: No Known Allergies (Verified , 11/22/06) UNOBTAINABLE (Unverified , 02/09/17) Objective . Vital Signs Date Time Temp Pulse Resp B/P Pulse Ox O2 Delivery O2 Flow Rate FiO2 02/15/17 11:33 98 35 02/15/17 07:27 100 35 02/15/17 06:00 112 02/15/17 04:03 97 35 02/15/17 04:00 102 02/15/17 04:00 100.5 102 15 147/64 98 02/15/17 04:00 40 02/15/17 02:00 101 02/15/17 01:02 100 35 02/15/17 00:00 100 02/15/17 00:00 99.7 102 15 120/72 99 02/15/17 00:00 40 02/14/17 22:02 98 40 02/14/17 22:00 103 02/14/17 20:01 98 40 02/14/17 20:00 99.8 97 21 150/80 99 02/14/17 20:00 97 02/14/17 20:00 40 02/14/17 18:00 87 02/14/17 16:00 99.4 74 15 118/56 99 02/14/17 16:00 74 02/14/17 16:00 40 02/14/17 15:33 100 40 02/14/17 14:00 71 02/14/17 02/14/17 02/15/17 15:00 23:00 07:00 Intake Total 2136 ml 920 ml 1193 ml Output Total 250 ml 800 ml 500 ml Balance 1886 ml 120 ml 693 ml Intake Oral 0 ml IV Total 1192 ml 369 ml 288 ml Tube Feeding 344 ml 251 ml 305 ml Other 600 ml 300 ml 600 ml Output Urine Total 250 ml 800 ml 500 ml Stool Total 0 ml # Bowel Movements 0 0 . Laboratory Tests Test 02/14/17 02/15/17 05:19 04:45 White Blood Count 10.0 TH/MM3 8.8 TH/MM3 Red Blood Count 3.71 MIL/MM3 3.81 MIL/MM3 Hemoglobin 11.0 GM/DL 11.4 GM/DL Hematocrit 33.9 % 34.9 % Mean Corpuscular Volume 91.3 FL 91.5 FL Mean Corpuscular Hemoglobin 29.7 PG 29.9 PG Mean Corpuscular Hemoglobin 32.5 % 32.7 % Concent Red Cell Distribution Width 16.5 % 16.7 % Platelet Count 210 TH/MM3 194 TH/MM3 Mean Platelet Volume 11.4 FL 9.2 FL Neutrophils (%) (Auto) 75.6 % Lymphocytes (%) (Auto) 12.0 % Monocytes (%) (Auto) 11.8 % Eosinophils (%) (Auto) 0.2 % Basophils (%) (Auto) 0.4 % Neutrophils # (Auto) 6.7 TH/MM3 Lymphocytes # (Auto) 1.1 TH/MM3 Monocytes # (Auto) 1.0 TH/MM3 Eosinophils # (Auto) 0.0 TH/MM3 Basophils # (Auto) 0.0 TH/MM3 CBC Comment DIFF FINAL Differential Comment Laboratory Tests Test 02/14/17 02/15/17 05:19 04:45 Sodium Level 137 MEQ/L 135 MEQ/L Potassium Level 4.3 MEQ/L 4.4 MEQ/L Chloride Level 105 MEQ/L 105 MEQ/L Carbon Dioxide Level 21.9 MEQ/L 20.3 MEQ/L Anion Gap 10 MEQ/L 10 MEQ/L Blood Urea Nitrogen 57 MG/DL 53 MG/DL Creatinine 4.14 MG/DL 3.67 MG/DL Estimat Glomerular Filtration 17 ML/MIN 19 ML/MIN Rate Random Glucose 161 MG/DL 118 MG/DL Calcium Level 7.6 MG/DL 7.7 MG/DL Magnesium Level 2.4 MG/DL Total Bilirubin 0.2 MG/DL Aspartate Amino Transf 197 U/L (AST/SGOT) Alanine Aminotransferase 42 U/L (ALT/SGPT) Alkaline Phosphatase 58 U/L Total Protein 6.3 GM/DL Albumin 1.6 GM/DL Microbiology Date/Time Procedure Status Source Growth 02/12/17 17:30 Legionella Antigen - Final Complete Urine Clean Catch PRESUMPTIVE NEGATIVE FOR LEGIONELLA P... 02/12/17 17:30 Streptococcus pneumoniae Antigen (M - Final Complete Urine Clean Catch PRESUMPTIVE NEGATIVE FOR STREPTOCOCCU... 02/12/17 21:23 Urine Culture - Final Complete Urine Catheterized Urine NO GROWTH IN 48 HOURS. 02/13/17 10:45 Gram Stain - Final Complete Sputum Endotracheal 02/13/17 10:45 Sputum Culture - Final Complete Sputum Endotracheal NO GROWTH IN 48 HOURS. Imaging Chest X-Ray 02/13/17 0600 Signed Impressions: Service Date/Time: Monday, February 13, 2017 04:07 - CONCLUSION: 1. Persistent right basilar consolidation and probable small pleural effusion. 2. Minimal density in the left retrocardiac region. Gregory Hoover MD Chest X-Ray 02/12/17 0000 Signed Impressions: Service Date/Time: Sunday, February 12, 2017 15:11 - CONCLUSION: Interval intubation. Diffuse right lung pleural-parenchymal opacity Tra Garibay MD Chest X-Ray 02/12/17 0000 Signed Impressions: Service Date/Time: Sunday, February 12, 2017 13:53 - CONCLUSION: Increasing right basilar opacity characteristic of a pleural effusion with associated volume loss and/or airspace consolidation. Tra Ma MD Last Impressions Chest X-Ray 02/09/17 0000 Signed Impressions: Service Date/Time: Thursday, February 09, 2017 12:49 - CONCLUSION: Increasing consolidative changes right lung base. Arya Horton MD FACR Head CT 02/07/171946 Signed Impressions: Service Date/Time: Tuesday, February 07, 2017 20:03 - CONCLUSION: No acute intracranial injury Tra Garibay MD Physical Exam GENERAL: Sedated on the vent. NAD SKIN: Warm and dry, no generalized rash or ecchymosis. HEENT: [place] conjunctivae. No scleral icterus. No injection or drainage. ET in mouth. NECK: Trachea midline. Supple, nontender, no meningeal signs. CARDIOVASCULAR: Rregular S1S2 RESPIRATORY: Decreased BS worse on R than L GASTROINTESTINAL: Abdomen mildly distended, bowel sounds are present, hypoactive. No reaction to palpation MUSCULOSKELETAL: Extremities without clubbing, cyanosis, or edema. NEUROLOGICAL: Sedated PSYCH: Unable to assess LINE: PIV with no evidence of infection Assessment & Plan Remarks IMPRESSION Respiratory failure, due to worsening pneumonia, likely due to recurrent aspiration Pneumonia present on admission: likely aspiration in setting of dementia. Cdiff positive diarrhea Ongoing aspiration. Dementia Acute metabolic encephalopathy Persistent fevers: Concomitant antibiotics for Pneumonia ppting Cdiff, ongoing aspiration. Renal insufficiency, worsening, likely multifactorail RECOMMENDATION Continue Cefepime Continue flagyl, currently being given IV due to aspiration problem - for C diff and anaerobic coverage Continue Azithro oral. - for atypical coverage Follow C/S repeat 2 BC today Follow temps Monitor progress Tricia Garcia MD Feb 15, 2017 13:15
--- NOTE | 2017-02-15 13:17 | RADRPT ---
EXAM DATE/TIME: 02/15/2017 11:42 [place] COMPARISON: No previous studies available for comparison. INDICATIONS : Abdominal distention. MEDICAL HISTORY : Dementia. SURGICAL HISTORY : None. ENCOUNTER: Subsequent ACUITY: 1 week PAIN SCORE: Non-responsive. LOCATION: Bilateral chest FINDINGS: A nasogastric tube coils into the stomach. There is gas present in a few nondilated bowel loops over the low abdomen and pelvis. No suspicious calcific densities are appreciated. There are degenerative changes in the spine and hips. Consolidative change in the lung bases and appears to be sizable right pleural effusion. CONCLUSION: Nonspecific abdomen appearance. Tra Garibay MD on February 15, 2017 at 13:13 Board Certified Radiologist. This report was verified electronically.
--- NOTE | 2017-02-15 13:35 | PD.CARD.PN ---
Subjective Subjective Remarks No events over night Increased urine output Objective Medications Current Medications Medications (Trade) Dose Ordered Sig/Connor Route Start Time Stop Time Status Last Admin (Zofran Inj) 4 mg Q8H PRN IV PUSH 02/07/17 21:45 (Apresoline) 50 mg BID PO 02/08/17 21:00 Hold 02/10/17 21:41 (Cozaar) 100 mg DAILY PO 02/09/17 09:00 Hold 02/10/17 10:27 (Toprol Xl) 50 mg DAILY PO 02/08/17 13:00 Hold 02/10/17 10:27 (Tylenol) 500 mg Q4H PRN PO 02/08/17 13:15 02/15/17 04:37 (Lactinex) 1 tab TID PO 02/09/17 13:00 02/15/17 13:03 Acetaminophen 650 mg 650 mg Q4H PRN RECTAL 02/10/17 01:00 02/12/17 01:37 (Flagyl 500 Mg Inj) 100 ml @ 100 mls/hr Q8H IV 02/12/17 08:00 02/15/17 08:52 Clonidine 1 patch 1 patch Q7D T-DERMAL 02/12/17 09:00 Hold 02/12/17 10:04 Azithromycin 500 mg/Sodium Chloride 250 ml @ 250 mls/hr Q24H IV 02/12/17 09:00 02/15/17 08:53 Cefepime HCl 1000 mg/Sodium Chloride 100 ml @ 200 mls/hr Q24H IV 02/12/17 14:00 02/15/17 13:04 (Diprivan 1000 Mg/100ml Inj) 100 ml @ 0 mls/hr TITRATE IV 02/12/17 14:30 02/13/17 08:07 (Peridex 0.12% Liq) 15 ml BID@08,20 MT 02/12/17 20:00 02/15/17 10:05 (D50w (Vial) Inj) 25 ml UNSCH PRN IV PUSH 02/12/17 14:30 (NovoLIN R SUPPLEMENTAL SCALE) 1 Q6HR SQ 02/12/17 18:00 02/14/17 13:08 Water 300 ml 300 ml Q4HR G-TUBE 02/12/17 16:00 02/15/17 08:00 Phenylephrine HCl 40 mg/Dextrose 500 ml @ 0 mls/hr TITRATE IV 02/12/17 15:00 02/14/17 19:39 (Cardizem Inj/NS Inj) 125 ml @ 0 mls/hr TITRATE IV 02/12/17 16:00 02/13/17 06:00 (Aspirin Chew) 81 mg DAILY CHEW 02/13/17 09:00 02/15/17 08:54 Miscellaneous Information Patient in critical care unit? Ass... Q361D .XX 02/12/17 22:00 (Chlorhexidine 2% Cloth) 3 pack DAILY@04 TOPICAL 02/13/17 04:00 02/17/17 04:01 02/15/17 04:00 Chlorhexidine Gluconate 3 pack 3 pack UNSCH PRN TOPICAL 02/12/17 21:45 02/17/17 21:39 (fentaNYL DRIP) 250 ml @ 0 mls/hr TITRATE IV 02/13/17 01:45 02/14/17 20:58 (Bumex Inj) 2 mg BID@18 IV PUSH 02/14/17 18:00 02/15/17 08:54 Vital Signs / I&O Vital Signs Date Time Temp Pulse Resp B/P Pulse Ox O2 Delivery O2 Flow Rate FiO2 02/15/17 12:00 40 02/15/17 11:33 98 35 02/15/17 08:00 40 02/15/17 07:27 100 35 02/15/17 06:00 112 02/15/17 04:03 97 35 02/15/17 04:00 102 02/15/17 04:00 100.5 102 15 147/64 98 02/15/17 04:00 40 02/15/17 02:00 101 02/15/17 01:02 100 35 02/15/17 00:00 100 02/15/17 00:00 99.7 102 15 120/72 99 02/15/17 00:00 40 02/14/17 22:02 98 40 02/14/17 22:00 103 02/14/17 20:01 98 40 02/14/17 20:00 99.8 97 21 150/80 99 02/14/17 20:00 97 02/14/17 20:00 40 02/14/17 18:00 87 02/14/17 16:00 99.4 74 15 118/56 99 02/14/17 16:00 74 02/14/17 16:00 40 02/14/17 15:33 100 40 02/14/17 14:00 71 I/O 02/14/17 02/14/17 02/14/17 02/15/17 02/15/17 02/15/17 07:00 15:00 23:00 07:00 15:00 23:00 Intake Total 1799 ml 2136 ml 920 ml 1193 ml Output Total 200 ml 250 ml 800 ml 500 ml Balance 1599 ml 1886 ml 120 ml 693 ml Intake Oral 0 ml IV Total 886 ml 1192 ml 369 ml 288 ml Tube Feeding 313 ml 344 ml 251 ml 305 ml Other 600 ml 600 ml 300 ml 600 ml Output Urine Total 200 ml 250 ml 800 ml 500 ml Stool Total 0 ml # Bowel Movements 0 0 Physical Exam GENERAL: Sedated on the vent SKIN: Warm and dry. HEAD: Atraumatic. Normocephalic. EYES: Pupils equal and round. No scleral icterus. No injection or drainage. ENT: No nasal bleeding or discharge. Mucous membranes pink and moist. NECK: Trachea midline. Mild JVD CARDIOVASCULAR: Regular rate, mildly tachycardic RESPIRATORY: No accessory muscle use. Decreased breath sounds bilaterally, rhonchi GASTROINTESTINAL: Abdomen soft, non-tender, nondistended. Hepatic and splenic margins not palpable. MUSCULOSKELETAL: Extremities without clubbing, cyanosis, or edema. No obvious deformities. NEUROLOGICAL: Sedated on the vent Laboratory Laboratory Tests Test 02/15/17 04:45 White Blood Count 8.8 TH/MM3 Red Blood Count 3.81 MIL/MM3 Hemoglobin 11.4 GM/DL Hematocrit 34.9 % Mean Corpuscular Volume 91.5 FL Mean Corpuscular Hemoglobin 29.9 PG Mean Corpuscular Hemoglobin 32.7 % Concent Red Cell Distribution Width 16.7 % Platelet Count 194 TH/MM3 Mean Platelet Volume 9.2 FL Neutrophils (%) (Auto) 75.6 % Lymphocytes (%) (Auto) 12.0 % Monocytes (%) (Auto) 11.8 % Eosinophils (%) (Auto) 0.2 % Basophils (%) (Auto) 0.4 % Neutrophils # (Auto) 6.7 TH/MM3 Lymphocytes # (Auto) 1.1 TH/MM3 Monocytes # (Auto) 1.0 TH/MM3 Eosinophils # (Auto) 0.0 TH/MM3 Basophils # (Auto) 0.0 TH/MM3 CBC Comment DIFF FINAL Differential Comment Sodium Level 135 MEQ/L Potassium Level 4.4 MEQ/L Chloride Level 105 MEQ/L Carbon Dioxide Level 20.3 MEQ/L Anion Gap 10 MEQ/L Blood Urea Nitrogen 53 MG/DL Creatinine 3.67 MG/DL Estimat Glomerular Filtration 19 ML/MIN Rate Random Glucose 118 MG/DL Calcium Level 7.7 MG/DL Magnesium Level 2.4 MG/DL Total Bilirubin 0.2 MG/DL Aspartate Amino Transf 197 U/L (AST/SGOT) Alanine Aminotransferase 42 U/L (ALT/SGPT) Alkaline Phosphatase 58 U/L Total Protein 6.3 GM/DL Albumin 1.6 GM/DL Assessment and Plan Problem List: (1) Pneumonia (2) Sepsis (3) Atrial fibrillation with RVR (4) Renal insufficiency (5) Elevated troponin I level (6) Encephalopathy (7) Clostridium difficile infection (8) Acute respiratory failure Assessment and Plan 1) Currently stable but guarded, concern for correction prognosis 2) Cardizem drip and pressors off at this time 3) No anticoagulation at this time, drop in Hgb, not sure if a good buttermaker continuous churn anticoagulation candidate for Afib 4) Mild elevation of troponin due to sepsis, CKD, hypotension and Afib with RVR , continue with medical management 5) Vent per critical care 6) Con't antibiotics 7) EF 30-35%, diffuse hypokinesis 8) Continue with supportive care, will see PRN, call with questions Problem Qualifiers (1) Pneumonia: Qualified Code: J18.1 - Pneumonia of right lower lobe due to infectious organism (2) Sepsis: Qualified Code: A41.9 - Sepsis, due to unspecified organism Nitish Scott DO Feb 15, 2017 13:34
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
--- NOTE | 2017-02-15 15:16 | HHI.CCPN ---
Subjective Remarks/Hospital Course Hospital Course: This is a 86yM who presented from home with altered mental status and end-stage dementia. His hospital course has been complicated by C. Diff and pneumonia for which he is on appropriate therapy. He has been noted to have gkkwj-co-pkooeeb aspiration during this hospital stay and has been NPO. Today, a rapid response was called for acute respiratory distress and hypoxia. I was called by Dr. Velez at the rapid response. He believe this is an aspiration event given the patient's clinical history. I immediately went and evaluated the patient. He is labored and in distress. his spo2 is 93% on non-rebreather. He is also in what appears to be new-onset atrial fibrillation with RVR and a HR 160s. Brief review of the pertinent laboratory data demonstrate worsening acute kidney injury, worsening anion-gap metabolic acidosis. Critical care medicine is consulted to evaluate and manage his severe respiratory distress and afib RVR. Unfortunately, the patient is obtunded and cannot provide any additional history. Subjective: 02/13: no clinical improvements. remains in multiorgan system failure. diltiazem drip weaned to off, but remains on phenylephrine. talked with nephrology who feel clinically, despite some element of JVD, that patient is clinically intravascularly hypovolemic and they recommend gentle ivf hydration, which I am ok with as a trial. mental status poor. kidney injury persists. palliative involved. apparently daughter is not health care surrogate legally, but has been making decisions in the outpatient setting. multiple disagreements within the family. appreciate palliative involvement. 02/14: Renal function continues to worsen and today 57/4.1. D/w Nephrology. If family wants everything done, will need to proceed with HD. Tmax 101.1. ID following 02/15: Remains critically ill, did not tolerate brief CPAP trial. CXR shows mod to large R pl effusion. MAXIMUM TEMPERATURE 100.5. Creatinine slightly improved with urine output more than 1.4 L Objective Vital Signs Date Time Temp Pulse Resp B/P Pulse Ox O2 Delivery O2 Flow Rate FiO2 02/15/17 12:00 40 02/15/17 11:33 98 02/15/17 06:00 112 02/15/17 04:00 100.5 15 147/64 02/12/17 13:23 Aerosol Mask 10.00 Intake and Output 02/14/17 02/14/1702/15/17 08:00 16:00 00:00 Intake Total 1799 ml 2136 ml 920 ml Output Total 200 ml 250 ml 800 ml Balance 1599 ml 1886 ml 120 ml Result Diagram: 02/15/17 0445 02/15/17 0445 Other Results Microbiology Date/Time Procedure Status Source Growth 02/12/17 17:30 Legionella Antigen - Final Complete Urine Clean Catch PRESUMPTIVE NEGATIVE FOR LEGIONELLA P... 02/12/17 17:30 Streptococcus pneumoniae Antigen (M - Final Complete Urine Clean Catch PRESUMPTIVE NEGATIVE FOR STREPTOCOCCU... 02/12/17 21:23 Urine Culture - Final Complete Urine Catheterized Urine NO GROWTH IN 48 HOURS. 02/13/17 10:45 Gram Stain - Final Complete Sputum Endotracheal 02/13/17 10:45 Sputum Culture - Final Complete Sputum Endotracheal NO GROWTH IN 48 HOURS. Imaging CXR pending. prior CXR on 02/09 with evidence of RLL consolidation Objective Remarks gen: Elderly male, cachectic. critically ill. intubated. heent: perrl. mucous membranes dry neck: + jvd. trachea midline chest: 8.[address] coarse rales bilaterally. Breath sounds diminished right base cv: tachycardic rate, mostly regular rhythm. Frequent PACs by tele. abd: Tense slightly distended. no guarding. extr: no peripheral edema. distal pulses 2+ neuro: RASS -3 on Fentanyl. weakly withdraws to pain. No spontaneous eye opening Procedures None A/P Assessment and Plan Assessment: 86yM with end-stage dementia, [id number]-[id number] aspiration, now with severe respiratory distress, acute hypoxic respiratory failure, worsening acute kidney injury, type II demand ischemia, distributive shock. Appreciate palliative care involvement. Patient remains very critically ill. I agree given the patient's severe dementia at baseline, and his age, this may not be a survivable event and hospital stay for him. For now, our goals remain aggressive as he is a documented FULL CODE. Plan by Systems: Neuro: Acute metabolic encephalopathy End-stage dementia -- frequent neuro checks -- Minimize long-acting sedating meds. On Fentanyl gtt -- CT head 02/07 negative for acute disease Respiratory: Acute hypoxic respiratory failure Aspiration pneumonitis kskxy-oh-ekcecpe aspiration Mod to large R effusion -- vent bundle -- HOB at 30 degrees -- wean fio2 for goal spo2 > 90% -- Failed SBT today -- Continue broad-spectrum antibiotics -- Bedside US to decide up on thoracentesis Cardiovascular: Atrial Fibrillation with Rapid Ventricular Response- resolved. Sinus tachycardia Distributive shock -- continue cardizem drip for HR control -- Phenylephrine for goal map > 65 mmHg. -- Bumex 2 mg IV q12. UO 1.4 L in 24 hours, cr improved Renal: Acute Kidney Injury -- Bumex 2 mg IV q12 -- Nephrology following. Renal function improving -- Zimmerman FEN/GI: Acute protein calorie malnutrition- severe C.Difficile Colitis Diarrhea Acute on chronic Aspiration -- ICU electrolyte protocol -- TF with Jevity. Heme/ID: C.Difficile Colitis Sepsis acute on chronic aspiration with pneumonitis -- ID on board -- ABX per ID -- Continues to spike low grade fever -- Continue Cefepime, Continue flagyl, for aspiration and C diff. Continue Azithro oral. - for atypical coverage Endocrine: Hyperglycemia of critical illness -- SSI, q6h, med scale Prophylaxis: SCDs, SQH, Protonix Dispo: remain in the ICU. he remains critically ill. If family wants aggressive care will need HD Critical Care Time: 35 minutes, exclusive of separately billable procedures. Tamera Dutta MD Feb 15, 2017 15:16
[2017-02-15] MEDS: fentaNYL DRIP 250 ML IV SCH (21:06)
[2017-02-16] VITALS (21 sets, daily range): BP systolic 108–170; BP diastolic 57–80; PULSE 99–132; RESP 15–18; TEMP 98.3–100.7; O2SAT 92–100
[2017-02-16] MEDS: metroNIDAZOLE 500 MG INJ 100 ML IV SCH ×3 (00:04→17:47)
[2017-02-16] MEDS: RESP: ALBUTEROL 2.5 MG/IPRATROPIUM 0.5 MG NEB (SCH) INH ×4 (03:14→21:07)
[2017-02-16] MEDS: FREE WATER G-TUBE SCH ×6 (04:00→17:47)
[2017-02-16] MEDS: CHLORHEXIDINE GLUCONATE 2 % 1 PACK (2 CLOTHS)(taper/protocol) TOPICAL SCH (04:00)
[2017-02-16] MEDS: INSULIN NovoLIN REGULAR SUPPLEMENTAL SCALE SQ SCH ×4 (06:00→17:47)
[2017-02-16 06:20] LABS: AUTOMATED NEUTROPHIL # 6.6 TH/MM3 (1.8-7.7); BASOPHIL % 0.4 % (0.0-2.0); EOSINOPHIL % 0.2 % (0.0-4.0); HEMATOCRIT 30.9 % (39.0-51.0); HEMO FLAGS DIFF FINAL; LYMPHOCYTE # 0.8 TH/MM3 (1.0-4.8); MEAN CELL VOLUME 89.1 FL (80.0-100.0); MEAN CORPUSCULAR HEMOGLOBIN 29.5 PG (27.0-34.0); MEAN CORPUSCULAR HGB CONC 33.1 % (32.0-36.0); MONO % 10.6 % (0.0-8.0); NEUT % 78.8 % (16.0-70.0); PLATELET COUNT 259 TH/MM3 (150-450); RED BLOOD COUNT 3.47 MIL/MM3 (4.50-5.90); RED CELL DISTRIBUTION WIDTH 15.8 % (11.6-17.2); WHITE BLOOD COUNT 8.3 TH/MM3 (4.0-11.0)
[2017-02-16 06:49] LABS: ALKALINE PHOSPHATASE 56 U/L (45-117); ALT (GPT) 40 U/L (12-78); ANION GAP 8 MEQ/L (5-15); AST (GOT) 150 U/L (15-37); BICARBONATE 26.3 MEQ/L (21.0-32.0); BLOOD UREA NITROGEN 49 MG/DL (7-18); CHLORIDE 99 MEQ/L (98-107); GLOMERULAR FILTRATION RATE 23 ML/MIN (>89); POTASSIUM 4.4 MEQ/L (3.5-5.1); SODIUM (NA) 133 MEQ/L (136-145); TOTAL BILIRUBIN ADULT 0.3 MG/DL (0.2-1.0)
--- NOTE | 2017-02-16 07:07 | RADRPT ---
EXAM DATE/TIME: 02/16/2017 04:06 [facility] COMPARISON: CHEST SINGLE AP, February 15, 2017, 2:20. INDICATIONS : Shortness of breath. MEDICAL HISTORY : None. SURGICAL HISTORY : None. ENCOUNTER: Subsequent ACUITY: 1 week PAIN SCORE: Non-responsive. LOCATION: Bilateral chest FINDINGS: The support devices remain in place. There is mild improved aeration of the right lung compared to th e prior study. There is no pneumothorax. The left lung is grossly clear. The right-sided effusion benita ears to be decreased compared to the prior exam. The bony structures are stable. CONCLUSION: Improved aeration of the right lung compared to the prior exam. Stevie Fleming MD on February 16, 2017 at 7:04 Board Certified Radiologist. This report was verified electronically.
[2017-02-16] MEDS: BUMETANIDE INJ 1 MG/4 ML VIAL IV PUSH SCH ×2 (08:10→17:47)
[2017-02-16] MEDS: LACTOBACILLUS ACIDOPHILUS TAB PO SCH ×3 (08:10→17:47)
[2017-02-16] MEDS: ASPIRIN 81 MG CHEW TAB CHEW SCH (08:10)
[2017-02-16] MEDS: AZITHROMYCIN INJ 500 MG in SODIUM CHLOR 0.9% 250 ML INJ 250 ML IV SCH (08:11)
[2017-02-16] MEDS: CHLORHEXIDINE 0.12% (ORAL KIT) 15 ML CUP MT SCH ×2 (08:11→19:51)
[2017-02-16] MEDS: ACETAMINOPHEN 500 MG CPLT PO PRN (08:17)
[2017-02-16] MEDS ORDERED: POTASSIUM PHOSPHATE/SODIUM PHOSPHATE 250 MG TAB PO ONE (08:45)
--- NOTE | 2017-02-16 09:48 | HHI.NPPN ---
Subjective General Problems: Hypotension Renal Failure: Chronic, Acute Interval History Remains intubated, sedated. Renal function is better. (Juliana Saravia) Review of Systems General General Remarks unable to obtain due to intubation/sedation (Juliana Saravia) Objective Data Data 02/15/17 02/16/17 19:00 07:00 Intake Total 1116 ml 2120 ml Output Total 725 ml 1950 ml Balance 391 ml 170 ml IV Total 526 ml 428 ml Tube Feeding 350 ml 792 ml Other 240 ml 900 ml Output Urine Total 725 ml 1950 ml # Bowel Movements 0 0 Vital Signs Date Time Temp Pulse Resp B/P Pulse Ox O2 Delivery O2 Flow Rate FiO2 02/16/17 07:30 100 35 02/16/17 06:00 103 02/16/17 04:03 100 50 02/16/17 04:00 98.3 99 15 112/58 100 02/16/17 04:00 40 02/16/17 04:00 99 02/16/17 02:00 105 02/16/17 01:03 100 100 02/16/17 00:00 70 02/16/17 00:00 102 02/16/17 00:00 98.6 102 18 110/80 100 02/15/17 22:51 100 100 02/15/17 22:00 93 02/15/17 20:26 99 100 02/15/17 20:00 98.2 87 15 107/51 100 02/15/17 20:00 100 02/15/17 20:00 87 02/15/17 18:00 98 02/15/17 16:00 94 02/15/17 16:00 40 02/15/17 16:00 98.6 94 15 117/57 100 02/15/17 15:34 100 100 02/15/17 14:00 97 02/15/17 12:00 98.6 105 17 100/56 98 02/15/17 12:00 40 02/15/17 12:00 105 02/15/17 11:33 98 35 02/15/17 10:00 100 (Juliana aSravia) -: 02/16/17 0552 02/16/17 0553 Microbiology 02/15/17 Aerobic Blood Culture, Received Pending 02/15/17 Anaerobic Blood Culture, Received Pending 02/15/17 Aerobic Blood Culture, Resulted Pending 02/15/17 Anaerobic Blood Culture - Final, Resulted QNS - SEE AEROBE REPORT Tubes & Lines: [place] Drip Comment fentanyl (Juliana Saravia) Physical Exam General Appearance: No Acute Distress, Sleeping, Malnourished Appearance Remarks frail, elderly AAM intubated/sedated (Juliana Saravia) Eyes Eye Exam: Pupils Equal (Juliana Saravia) Throat Throat Exam: Oral Mucosa [place] & Moist Throat Remarks ETT, OG tube (Juliana Saravia) Pulmonary Resp Exam: Breath Sounds Equal, Crackles, Rhonchi Resp Remarks vented (Juliana Saravia) Cardiology CV Exam: Regular, Tachycardia (Juliana Saravia) Gastrointestinal/Abdomen GI Exam: Non-Tender, Bowel Sounds Present GI Remarks flat, firm, grimaces to palpation (Juliana Saravia) Musculoskeletal MS Exam: Joints Intact, Atrophy, Unable to Ambulate (Juliana Saravia) Integumentary Skin Exam: Clear, Warm, Dry, Intact (Juliana Saravia) Extremeties Extremities Exam: No Edema, Pedal Pulses Palpable (Juliana Saravia) Neurologic Neuro Exam: Unresponsive, Sedated (Juliana Saravia) VTE Prophylaxis Device: SCDs (Juliana Saravia) Assessment/Plan Assessment Summary: WILLIE/Acute Renal Failure Problem List: (1) Acute renal failure Plan: in a patient whose baseline creatinine was 1.7 in 2006 ATN from renal hypoperfusion renal function has improved, good urine output K is normal, no evidence of acidosis continue diuresis with Bumex BID, monitor response avoid nephrotoxins, renally dose medications when appropriate daily renal panel resume antihypertensives when clinically appropriate he is not in need of dialysis support (2) Encephalopathy Plan: multifactorial, has hx of dementia was septic and in acute hypoxic respiratory failure continue supportive measures EEG reviewed, (3) Dysphagia Plan: likely will need PEG placement due to chronic aspiration (4) Pneumonia Plan: likely aspiration related on cefepime and Zithromax, IV flagyl also appreciate respiratory therapy assistance continue vent management, ween per protocol current vent settings: 15/500/40/7 (5) Clostridium difficile infection Plan: on IV flagyl contact precautions (Juliana Saravia) Plan patient was seen and examined. Renal function has improved. No need for dialysis. Reduce free water. Continue Bumex. (Mauro Dallas MD) Problem Qualifiers (1) Pneumonia: Qualified Code: J18.1 - Pneumonia of right lower lobe due to infectious organism Juliana Saravia Feb 16, 2017 09:48 Mauro Dallas MD Feb 16, 2017 15:13
--- NOTE | 2017-02-16 10:17 | HHI.IDPN ---
Subjective Subjective Remarks Notes reviewed Temps better UO has picked up and creatinine has decreased Nothing new on C/S CXR is showing improvement on R side Sedated on the vent BP ok, not on pressors No BM is an 86 y/o AAM (Herber by ) with Dementia who presented with worsening mentation and diagnosed with Pneumonia and Cdiff positive diarrhea. PM records from 2006 indicate no allergies no surgeries. ID following for PNA and Cdiff present on admission. Antibiotics Cefepime IV (for worsening PNA) Flagyl IV (cdiff and anaerobic coverage) Azithro (atypical coverage) Lines Line sites with no evidence of infection Past Medical History Dementia. Allergies: Coded Allergies: No Known Allergies (Verified , 11/22/06) UNOBTAINABLE (Unverified , 02/09/17) Objective . Vital Signs Date Time Temp Pulse Resp B/P Pulse Ox O2 Delivery O2 Flow Rate FiO2 02/16/17 07:30 100 35 02/16/17 06:00 103 02/16/17 04:03 100 50 02/16/17 04:00 98.3 99 15 112/58 100 02/16/17 04:00 40 02/16/17 04:00 99 02/16/17 02:00 105 02/16/17 01:03 100 100 02/16/17 00:00 70 02/16/17 00:00 102 02/16/17 00:00 98.6 102 18 110/80 100 02/15/17 22:51 100 100 02/15/17 22:00 93 02/15/17 20:26 99 100 02/15/17 20:00 98.2 87 15 107/51 100 02/15/17 20:00 100 02/15/17 20:00 87 02/15/17 18:00 98 02/15/17 16:00 94 02/15/17 16:00 40 02/15/17 16:00 98.6 94 15 117/57 100 02/15/17 15:34 100 100 02/15/17 14:00 97 02/15/17 12:00 98.6 105 17 100/56 98 02/15/17 12:00 40 02/15/17 12:00 105 02/15/17 11:33 98 35 02/15/17 02/15/17 02/16/17 15:00 23:00 07:00 Intake Total 1116 ml 1006 ml 1114 ml Output Total 725 ml 1150 ml 800 ml Balance 391 ml -144 ml 314 ml IV Total 526 ml 230 ml 198 ml Tube Feeding 350 ml 476 ml 316 ml Other 240 ml 300 ml 600 ml Output Urine Total 725 ml 1150 ml 800 ml # Bowel Movements 0 0 0 . Laboratory Tests Test 02/15/17 02/16/17 04:45 05:52 White Blood Count 8.8 TH/MM3 8.3 TH/MM3 Red Blood Count 3.81 MIL/MM3 3.47 MIL/MM3 Hemoglobin 11.4 GM/DL 10.3 GM/DL Hematocrit 34.9 % 30.9 % Mean Corpuscular Volume 91.5 FL 89.1 FL Mean Corpuscular Hemoglobin 29.9 PG 29.5 PG Mean Corpuscular Hemoglobin 32.7 % 33.1 % Concent Red Cell Distribution Width 16.7 % 15.8 % Platelet Count 194 TH/MM3 259 TH/MM3 Mean Platelet Volume 9.2 FL 10.2 FL Neutrophils (%) (Auto) 75.6 % 78.8 % Lymphocytes (%) (Auto) 12.0 % 10.0 % Monocytes (%) (Auto) 11.8 % 10.6 % Eosinophils (%) (Auto) 0.2 % 0.2 % Basophils (%) (Auto) 0.4 % 0.4 % Neutrophils # (Auto) 6.7 TH/MM3 6.6 TH/MM3 Lymphocytes # (Auto) 1.1 TH/MM3 0.8 TH/MM3 Monocytes # (Auto) 1.0 TH/MM3 0.9 TH/MM3 Eosinophils # (Auto) 0.0 TH/MM3 0.0 TH/MM3 Basophils # (Auto) 0.0 TH/MM3 0.0 TH/MM3 CBC Comment DIFF FINAL DIFF FINAL Differential Comment Laboratory Tests Test 02/15/17 02/16/17 04:45 05:53 Sodium Level 135 MEQ/L 133 MEQ/L Potassium Level 4.4 MEQ/L 4.4 MEQ/L Chloride Level 105 MEQ/L 99 MEQ/L Carbon Dioxide Level 20.3 MEQ/L 26.3 MEQ/L Anion Gap 10 MEQ/L 8 MEQ/L Blood Urea Nitrogen 53 MG/DL 49 MG/DL Creatinine 3.67 MG/DL 3.10 MG/DL Estimat Glomerular Filtration 19 ML/MIN 23 ML/MIN Rate Random Glucose 118 MG/DL 139 MG/DL Calcium Level 7.7 MG/DL 7.7 MG/DL Magnesium Level 2.4 MG/DL Total Bilirubin 0.2 MG/DL 0.3 MG/DL Aspartate Amino Transf 197 U/L 150 U/L (AST/SGOT) Alanine Aminotransferase 42 U/L 40 U/L (ALT/SGPT) Alkaline Phosphatase 58 U/L 56 U/L Total Protein 6.3 GM/DL 6.4 GM/DL Albumin 1.6 GM/DL 1.7 GM/DL Phosphorus Level 2.4 MG/DL Ammonia LESS THAN 10 MCMOL/L Microbiology Date/Time Procedure Status Source Growth 02/13/17 10:45 Gram Stain - Final Complete Sputum Endotracheal 02/13/17 10:45 Sputum Culture - Final Complete Sputum Endotracheal NO GROWTH IN 48 HOURS. 02/15/17 14:52 Aerobic Blood Culture Received Blood Peripheral Pending 02/15/17 14:52 Anaerobic Blood Culture Received Blood Peripheral Pending 02/15/17 15:05 Aerobic Blood Culture Resulted Blood Peripheral Pending 02/15/17 15:05 Anaerobic Blood Culture - Final Resulted Blood Peripheral QNS - SEE AEROBE REPORT Imaging Chest X-Ray 02/16/17 0600 Signed Impressions: Service Date/Time: Thursday, February 16, 2017 04:06 - CONCLUSION: Improved aeration of the right lung compared to the prior exam. Stevie Fleming MD Chest X-Ray 02/15/17 0600 Signed Impressions: Service Date/Time: February 02:20 - CONCLUSION: Increasing density throughout the right hemithorax with moderate right-sided pleural effusion and probable right basilar atelectasis. Gregory Hoover MD Abdomen X-Ray 02/15/17 0000 Signed Impressions: Service Date/Time: February 11:42 - CONCLUSION: Nonspecific abdomen appearance. Tra Garibay MD Chest X-Ray 02/13/17 0600 Signed Impressions: Service Date/Time: Monday, February 13, 2017 04:07 - CONCLUSION: 1. Persistent right basilar consolidation and probable small pleural effusion. 2. Minimal density in the left retrocardiac region. Gregory Hoover MD Chest X-Ray 02/12/17 0000 Signed Impressions: Service Date/Time: Sunday, February 12, 2017 15:11 - CONCLUSION: Interval intubation. Diffuse right lung pleural-parenchymal opacity Tra Garibay MD Chest X-Ray 02/12/17 0000 Signed Impressions: Service Date/Time: Sunday, February 12, 2017 13:53 - CONCLUSION: Increasing right basilar opacity characteristic of a pleural effusion with associated volume loss and/or airspace consolidation. Tra Ma MD Last Impressions Chest X-Ray 02/09/17 0000 Signed Impressions: Service Date/Time: Thursday, February 09, 2017 12:49 - CONCLUSION: Increasing consolidative changes right lung base. Arya Horton MD FACR Head CT 02/07/171946 Signed Impressions: Service Date/Time: Tuesday, February 07, 2017 20:03 - CONCLUSION: No acute intracranial injury Tra Garibay MD Physical Exam GENERAL: Sedated on the vent. NAD SKIN: Warm and dry, no generalized rash. HEENT: [place] conjunctivae. No scleral icterus. No injection or drainage. ET in mouth. NECK: Trachea midline. Supple, nontender, no meningeal signs. CARDIOVASCULAR: Rregular S1S2 RESPIRATORY: Decreased BS worse on R than L GASTROINTESTINAL: Abdomen mildly distended, bowel sounds are present, hypoactive. No reaction to palpation MUSCULOSKELETAL: Extremities without clubbing, cyanosis, or edema. NEUROLOGICAL: Sedated PSYCH: Unable to assess LINE: PIV with no evidence of infection Assessment & Plan Remarks IMPRESSION Respiratory failure, due to worsening pneumonia, likely due to recurrent aspiration Has R effusion - CXR better Pneumonia present on admission: likely aspiration in setting of dementia. Cdiff positive diarrhea Ongoing aspiration. Dementia Acute metabolic encephalopathy Persistent fevers: Concomitant antibiotics for Pneumonia ppting Cdiff, ongoing aspiration. Renal insufficiency, better RECOMMENDATION Continue Cefepime Continue flagyl, currently being given IV due to aspiration problem - for C diff and anaerobic coverage Stop Azithromycin Follow C/S Follow temps Monitor progress Other ID MD available this weekend if with any ID issue, or question Tricia Garcia MD Feb 16, 2017 10:17
[2017-02-16] MEDS ORDERED: DIATRIZOATE MEGLUM/DIATRIZOATE SOD 9 ML CUP PO ONE (11:00)
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
[2017-02-16] MEDS: fentaNYL DRIP 250 ML IV SCH (13:09)
[2017-02-16] MEDS: CEFEPIME INJ 1,000 MG in SODIUM CHLORIDE 0.9% INJ 100 ML IV SCH (14:00)
--- NOTE | 2017-02-16 14:10 | RADRPT ---
EXAM DATE/TIME: 02/16/2017 13:26 [facility] COMPARISON: CHEST SINGLE AP, February 15, 2017, 2:20. CHEST SINGLE AP, February 16, 2017, 4:06. INDICATIONS : Shortness of breath. RADIATION DOSE: 10.96 CTDIvol (mGy) ; Combined studies - Thorax/Abdomen/Pelvis MEDICAL HISTORY : Non-responsive. SURGICAL HISTORY : Non-responsive. ENCOUNTER: Initial ACUITY: 1 day PAIN SCALE: Non-responsive LOCATION: Bilateral chest TECHNIQUE: Volumetric scanning of the chest was performed. Using automated exposure control and adjustment of t he mA and/or kV according to patient size, radiation dose was kept as low as reasonably achievable to obtain optimal diagnostic quality images. FINDINGS: LUNGS: There is a moderate to large right and small left pleural effusion with associated compressive atelec tasis and airspace consolidation in the right lower lobe. In the right upper lobe (image 27) there ar e 2 adjacent nodules measuring 5 mm and 10 mm. No pneumothorax is present. PLEURAE: There is a moderate to large right and small left pleural effusion. No pleural thickening is apprecia loli. MEDIASTINUM: The heart and great vessels demonstrate no acute abnormality. Small pericardial effusion is present. Patient is intubated nasogastric tube is present. There is no mediastinal or hilar lymphadenopathy a ppreciated on this noncontrast exam. AXILLAE: Within normal limits. No lymphadenopathy. MUSCULOSKELETAL: There are degenerative changes of the thoracic spine. MISCELLANEOUS: Please refer to abdomen and pelvis CT report for description of the subdiaphragmatic findings. CONCLUSION: 1. Moderate to large right and small left pleural effusion with associated compressive atelectasis. T here additionally is airspace consolidation in the right lower lobe. 2. Small pericardial effusion. 3. There are 2 nodules in the right upper lobe measuring 5 mm and 10 mm. Suggest attention to these a t followup imaging. Tra Ma MD on February 16, 2017 at 14:04 Board Certified Radiologist. This report was verified electronically.
--- NOTE | 2017-02-16 14:39 | HHI.CCPN ---
Subjective Remarks/Hospital Course Hospital Course: This is a 86yM who presented from home with altered mental status and end-stage dementia. His hospital course has been complicated by C. Diff and pneumonia for which he is on appropriate therapy. He has been noted to have pkepv-ha-lcjwznh aspiration during this hospital stay and has been NPO. Today, a rapid response was called for acute respiratory distress and hypoxia. I was called by Dr. Velez at the rapid response. He believe this is an aspiration event given the patient's clinical history. I immediately went and evaluated the patient. He is labored and in distress. his spo2 is 93% on non-rebreather. He is also in what appears to be new-onset atrial fibrillation with RVR and a HR 160s. Brief review of the pertinent laboratory data demonstrate worsening acute kidney injury, worsening anion-gap metabolic acidosis. Critical care medicine is consulted to evaluate and manage his severe respiratory distress and afib RVR. Unfortunately, the patient is obtunded and cannot provide any additional history. Subjective: 02/13: no clinical improvements. remains in multiorgan system failure. diltiazem drip weaned to off, but remains on phenylephrine. talked with nephrology who feel clinically, despite some element of JVD, that patient is clinically intravascularly hypovolemic and they recommend gentle ivf hydration, which I am ok with as a trial. mental status poor. kidney injury persists. palliative involved. apparently daughter is not health care surrogate legally, but has been making decisions in the outpatient setting. multiple disagreements within the family. appreciate palliative involvement. 02/14: Renal function continues to worsen and today 57/4.1. D/w Nephrology. If family wants everything done, will need to proceed with HD. Tmax 101.1. ID following 02/15: Remains critically ill, did not tolerate brief CPAP trial. CXR shows mod to large R pl effusion. MAXIMUM TEMPERATURE 100.5. Creatinine slightly improved with urine output more than 1.4 L 02/16: Patient remains intubated, lightly sedated.. Did not tolerate C-peptide yesterday due to tachypnea. CT of the chest shows moderately large right effusion plan for thoracentesis Objective Vital Signs Date Time Temp Pulse Resp B/P Pulse Ox O2 Delivery O2 Flow Rate FiO2 02/16/17 13:45 95 02/16/17 12:45 35 02/16/17 06:00 103 02/16/17 04:00 98.3 15 112/58 02/12/17 13:23 Aerosol Mask 10.00 Intake and Output 02/15/17 02/15/17 02/16/17 08:00 16:00 00:00 Intake Total 1193 ml 1116 ml 1006 ml Output Total 500 ml 725 ml 1150 ml Balance 693 ml 391 ml -144 ml Result Diagram: 02/16/17 0552 02/16/17 0553 Imaging CXR pending. prior CXR on 02/09 with evidence of RLL consolidation Objective Remarks gen: Elderly male, cachectic. critically ill. intubated. heent: perrl. mucous membranes dry neck: + jvd. trachea midline chest: 8.[address] coarse rales bilaterally. Breath sounds diminished right base. Mod to large R effusion cv: tachycardic rate, mostly regular rhythm. Frequent PACs by tele. abd: Tense slightly distended. no guarding. extr: no peripheral edema. distal pulses 2+ neuro: RASS -3 on Fentanyl. weakly withdraws to pain. No spontaneous eye opening Procedures None A/P Assessment and Plan Assessment: 86yM with end-stage dementia, edlyb-ra-hksxohs aspiration, now with severe respiratory distress, acute hypoxic respiratory failure, worsening acute kidney injury, type II demand ischemia, distributive shock. Appreciate palliative care involvement. Patient remains very critically ill. I agree given the patient's severe dementia at baseline, and his age, this may not be a survivable event and hospital stay for him. For now, our goals remain aggressive as he is a documented FULL CODE. Plan by Systems: Neuro: Acute metabolic encephalopathy End-stage dementia -- frequent neuro checks -- Minimize long-acting sedating meds. On Fentanyl gtt -- CT head 02/07 negative for acute disease Respiratory: Acute hypoxic respiratory failure Aspiration pneumonitis yqcpn-qh-[id number] aspiration Mod to large R effusion -- vent bundle -- HOB at 30 degrees -- wean fiO2 for goal spo2 > 90% -- Failed SBT today -- Continue broad-spectrum antibiotics -- Bedside US guided thoracentesis today Cardiovascular: Atrial Fibrillation with Rapid Ventricular Response- resolved. Sinus tachycardia Distributive shock -- Off Cardizem drip for HR control, if needed -- Phenylephrine as needed for goal map > 65 mmHg. Off now -- Bumex 2 mg IV q12. UO 2.7 L in 24 hours, cr improved to 3.1 Renal: Acute Kidney Injury -- Bumex 2 mg IV q12 -- Nephrology following. Renal function improving cr 3.1 today, UO 2.7L in 24 hours -- Zimmerman FEN/GI: Acute protein calorie malnutrition- severe C.Difficile Colitis Diarrhea Acute on chronic Aspiration -- ICU electrolyte protocol -- TF with Jevity. -- See ID section Heme/ID: C. Difficile Colitis Sepsis acute on chronic aspiration with pneumonitis -- ID on board -- ABX per ID -- Continues to spike low grade fever -- Continue Cefepime, Continue Flagyl, for aspiration and C diff. Continue Azithro oral for atypical coverage Endocrine: Hyperglycemia of critical illness -- SSI, q6h, med scale Prophylaxis: SCDs, SQH, Protonix Dispo: remain in the ICU. he remains critically ill. If family wants aggressive care will need HD Critical Care Time: 32 minutes, exclusive of separately billable procedures. Tamera Dutta MD Feb 16, 2017 14:39
--- NOTE | 2017-02-16 14:53 | RADRPT ---
EXAM DATE/TIME: 02/16/2017 13:44 [facility] COMPARISON: No previous studies available for comparison. INDICATIONS : Altered mental status. MEDICAL HISTORY : Unknown. SURGICAL HISTORY : Unknown. ENCOUNTER: Subsequent ACUITY: 2 day PAIN SCORE: Nonresponsive. LOCATION: cranial TECHNIQUE: Multiplanar, multisequence MRI of the brain was performed without contrast. FINDINGS: Diffusion weighted images demonstrate multiple subtle foci of restricted diffusion in the bilateral f rontal deep white matter. There is diffuse atrophy, patchy and confluent increased flair signal in th e bilateral centrum semiovale and periventricular white matter consistent with chronic microvascular ischemic disease. There are multiple remote lacunar infarcts within the basal ganglia and periventric ular white matter. There is also mild increased signal in the moe consistent with chronic ischemic d isease. There is fluid in the bilateral mastoid air cells. There are numerous punctate foci of bloomi ng artifact on susceptibility weighted images characteristic of micro-bleeds. CONCLUSION: Atrophy and extensive white matter disease as well as micro-bleeds the route the cerebral hemispheres and cerebellum. Punctate foci of acute infarction are suspected within the bilateral frontal white m atter as described above. Scott Garcia MD on February 16, 2017 at 14:49 Board Certified Radiologist. This report was verified electronically.
--- NOTE | 2017-02-16 15:32 | RADRPT ---
EXAM DATE/TIME: 02/16/2017 13:26 [facility] COMPARISON: CT THORAX W/O CONTRAST, February 16, 2017, 13:26. INDICATIONS : Abdominal pain. ORAL CONTRAST: Prescribed oral contrast ingested. RADIATION DOSE: 10.96 CTDIvol (mGy) ; Combined studies - Thorax/Abdomen/Pelvis MEDICAL HISTORY : Non-responsive. SURGICAL HISTORY : Non-responsive. ENCOUNTER: Initial ACUITY: 1 day PAIN SCALE: Non-responsive LOCATION: All quadrants. TECHNIQUE: Volumetric scanning of the abdomen and pelvis was performed. Using automated exposure control and ad justment of the mA and/or kV according to patient size, radiation dose was kept as low as reasonably achievable to obtain optimal diagnostic quality images. FINDINGS: There is a small pericardial effusion, bilateral pleural effusions, compressive atelectasis at both l levar bases and lower lobe consolidation. Enteric tube tip terminates in the stomach. There is contrast within small bowel loops which are nondilated. Zimmerman catheter within the urinary bladder as well as a small amount of air. There is diffuse body wall edema. A ptotic left kidney is noted in the pelvis. Spleen, pancreas, adrenal glands and right kidney are unremarkable. Left kidney unremarkable with no evidence for hydronephrosis. No adenopathy or aneurysm. Scattered atherosclerotic calcifications are seen. Diffuse body wall edema. Degenerative changes of the spine. CONCLUSION: 1. Diffuse body wall edema, bilateral effusions, pericardial effusion and lower lobe atelectasis and consolidation. 2. Atherosclerosis. Scott Garcia MD on February 16, 2017 at 15:29 Board Certified Radiologist. This report was verified electronically.
[2017-02-16] MEDS ORDERED: LORazepam 2 MG/ML VIAL IV ONE (18:30)
[2017-02-16] MEDS: PROPOFOL 1000 MG/100 ML INJ 100 ML IV SCH (19:51)
[2017-02-16] MEDS ORDERED: METOPROLOL TARTRATE 5 MG/5 ML VIAL IV PUSH SCH (21:00)
--- NOTE | 2017-02-16 22:59 | MG ---
cc: MARTIR MYLES MD Lab No: [id number] Date: 02/16/2017 Age:86 Sex: M Race: DATE OF 1930 HISTORY An 86-year-old, confusion. Electrical artifact of, frequent eye movement, blink artifact noted. 1-2 Hz delta activity with superimposed 3 to 4 Hz activity occurring 20 to 40 microvolts. No driving with photic stimulation. Single lead EKG showing some irregularity and premature contractions. Mild EEG variability, reactivity. INTERPRETATION Moderate to severe encephalopathy. Cardiac arrhythmia. Clinical correlation. Martir Myles MD MG/EO /10:09 PM /10:48 PM
[2017-02-17] VITALS (19 sets, daily range): BP systolic 93–130; BP diastolic 14–74; PULSE 99–121; RESP 15–21; TEMP 97.5–100.7; O2SAT 92–100
[2017-02-17] MEDS: DEXTROSE 50% IN WATER 50 ML VIAL(D50) IV PUSH PRN (00:10)
[2017-02-17] MEDS: HYOSCYAMINE SOLN 0.125 MG/ML 15 ML BTL PO SCH ×2 (00:10→05:31)
[2017-02-17] MEDS: metroNIDAZOLE 500 MG INJ 100 ML IV SCH ×3 (00:11→15:18)
[2017-02-17] MEDS: RESP: ALBUTEROL 2.5 MG/IPRATROPIUM 0.5 MG NEB (SCH) INH ×4 (03:17→21:16)
[2017-02-17] MEDS: CHLORHEXIDINE GLUCONATE 2 % 1 PACK (2 CLOTHS)(taper/protocol) TOPICAL SCH (04:00)
[2017-02-17] MEDS: fentaNYL DRIP 250 ML IV SCH (04:14)
[2017-02-17] MEDS: FREE WATER G-TUBE SCH ×4 (05:31→17:02)
[2017-02-17] MEDS: ACETAMINOPHEN 500 MG CPLT PO PRN (05:31)
[2017-02-17] MEDS: INSULIN NovoLIN REGULAR SUPPLEMENTAL SCALE SQ SCH ×4 (06:00→18:45)
--- NOTE | 2017-02-17 06:22 | RADRPT ---
EXAM DATE/TIME: 02/17/2017 03:54 [facility] COMPARISON: CHEST SINGLE AP, February 16, 2017, 4:06. INDICATIONS : Shortness of breath, possible pulmonary disease. MEDICAL HISTORY : None. SURGICAL HISTORY : None. ENCOUNTER: Subsequent ACUITY: 1 week PAIN SCORE: Non-responsive. LOCATION: Bilateral chest FINDINGS: The cardiac silhouette is normal in transverse diameter. Support lines and tubes are in satisfactory position. There is bilateral lower lobe atelectasis versus pneumonia. Moderate size bilateral pleural effusions are identified. CONCLUSION: 1. Bilateral lower lobe atelectasis versus pneumonia. Bilateral effusions. There has been no signific ant change when compared to the prior exam. Jorge Luis Pritchard MD on February 17, 2017 at 6:19 Board Certified Radiologist. This report was verified electronically.
[2017-02-17] MEDS: LACTOBACILLUS ACIDOPHILUS TAB PO SCH ×3 (08:56→18:46)
[2017-02-17] MEDS: ASPIRIN 81 MG CHEW TAB CHEW SCH (08:56)
[2017-02-17] MEDS: BUMETANIDE INJ 1 MG/4 ML VIAL IV PUSH SCH ×2 (08:56→18:45)
[2017-02-17] MEDS: CHLORHEXIDINE 0.12% (ORAL KIT) 15 ML CUP MT SCH ×2 (08:57→21:33)
[2017-02-17] MEDS ORDERED: SENNOSIDES SYRUP 8.8 MG/5 ML CUP PO ONE (10:15)
[2017-02-17] MEDS ORDERED: LACTULOSE SYRUP 20 GM/30 ML CUP PO ONE (10:15)
[2017-02-17] MEDS ORDERED: GLYCERIN ADULT 2 GM SUPP RECTAL PRN (10:15)
[2017-02-17] MEDS ORDERED: METHYLNALTREXONE BROMIDE 12 MG/0.6 ML VIAL SQ ONE (10:15)
--- NOTE | 2017-02-17 10:16 | HHI.CCPN ---
Subjective Remarks/Hospital Course Hospital Course: This is a 86yM who presented from home with altered mental status and end-stage dementia. His hospital course has been complicated by C. Diff and pneumonia for which he is on appropriate therapy. He has been noted to have pggai-rt-fsskqdb aspiration during this hospital stay and has been NPO. Today, a rapid response was called for acute respiratory distress and hypoxia. I was called by Dr. Velez at the rapid response. He believe this is an aspiration event given the patient's clinical history. I immediately went and evaluated the patient. He is labored and in distress. his spo2 is 93% on non-rebreather. He is also in what appears to be new-onset atrial fibrillation with RVR and a HR 160s. Brief review of the pertinent laboratory data demonstrate worsening acute kidney injury, worsening anion-gap metabolic acidosis. Critical care medicine is consulted to evaluate and manage his severe respiratory distress and afib RVR. Unfortunately, the patient is obtunded and cannot provide any additional history. 02/13: no clinical improvements. remains in multiorgan system failure. diltiazem drip weaned to off, but remains on phenylephrine. talked with nephrology who feel clinically, despite some element of JVD, that patient is clinically intravascularly hypovolemic and they recommend gentle ivf hydration, which I am ok with as a trial. mental status poor. kidney injury persists. palliative involved. apparently daughter is not health care surrogate legally, but has been making decisions in the outpatient setting. multiple disagreements within the family. appreciate palliative involvement. 02/14: Renal function continues to worsen and today 57/4.1. D/w Nephrology. If family wants everything done, will need to proceed with HD. Tmax 101.1. ID following 02/15: Remains critically ill, did not tolerate brief CPAP trial. CXR shows mod to large R pl effusion. MAXIMUM TEMPERATURE 100.5. Creatinine slightly improved with urine output more than 1.4 L 02/16: Patient remains intubated, lightly sedated.. Did not tolerate C-peptide yesterday due to tachypnea. CT of the chest shows moderately large right effusion plan for thoracentesis Subjective: 02/17: Tmax 100.7. No bowel movement since 02/12. On sedation vacation withdrawals but does not follow commands. Tolerating tube feeds at goal. Objective Vital Signs Date Time Temp Pulse Resp B/P Pulse Ox O2 Delivery O2 Flow Rate FiO2 02/17/17 09:05 98 45 02/17/17 06:00 118 02/17/17 04:00 100.7 15 112/74 Intake and Output 02/16/17 02/16/17 02/17/17 08:00 16:00 00:00 Intake Total 1114 ml 1261 ml 689 ml Output Total 800 ml 600 ml 1400 ml Balance 314 ml 661 ml -711 ml Result Diagram: 02/16/17 0552 02/16/17 0553 Other Results Microbiology Date/Time Procedure Status Source Growth 02/15/17 15:05 Aerobic Blood Culture - Preliminary Resulted Blood Peripheral NO GROWTH IN 1 DAY 02/15/17 15:05 Anaerobic Blood Culture - Final Resulted Blood Peripheral QNS - SEE AEROBE REPORT 02/13/17 10:45 Gram Stain - Final Complete Sputum Endotracheal 02/13/17 10:45 Sputum Culture - Final Complete Sputum Endotracheal NO GROWTH IN 48 HOURS. 02/12/17 21:23 Urine Culture - Final Complete Urine Catheterized Urine NO GROWTH IN 48 HOURS. 02/12/17 17:30 Legionella Antigen - Final Complete Urine Clean Catch PRESUMPTIVE NEGATIVE FOR LEGIONELLA P... 02/12/17 17:30 Streptococcus pneumoniae Antigen (M - Final Complete Urine Clean Catch PRESUMPTIVE NEGATIVE FOR STREPTOCOCCU... Imaging Last Impressions Chest X-Ray 02/17/17 0600 Signed Impressions: Service Date/Time: Friday, February 17, 2017 03:54 - CONCLUSION: 1. Bilateral lower lobe atelectasis versus pneumonia. Bilateral effusions. There has been no significant change when compared to the prior exam. Jorge Luis Pritchard MD Chest CT 02/16/17 0000 Signed Impressions: Service Date/Time: Thursday, February 16, 2017 13:26 - CONCLUSION: 1. Moderate to large right and small left pleural effusion with associated compressive atelectasis. There additionally is airspace consolidation in the right lower lobe. 2. Small pericardial effusion. 3. There are 2 nodules in the right upper lobe measuring 5 mm and 10 mm. Suggest attention to these at followup imaging. Tra Ma MD Brain MRI 02/16/17 0000 Signed Impressions: Service Date/Time: Thursday, February 16, 2017 13:44 - CONCLUSION: Atrophy and extensive white matter disease as well as micro-bleeds the route the cerebral hemispheres and cerebellum. Punctate foci of acute infarction are suspected within the bilateral frontal white matter as described above. Scott Garcia MD Abdomen/Pelvis CT 02/16/17 0000 Signed Impressions: Service Date/Time: Thursday, February 16, 2017 13:26 - CONCLUSION: 1. Diffuse body wall edema, bilateral effusions, pericardial effusion and lower lobe atelectasis and consolidation. 2. Atherosclerosis. Scott Garcia MD Abdomen X-Ray 02/15/17 0000 Signed Impressions: Service Date/Time: February 11:42 - CONCLUSION: Nonspecific abdomen appearance. Tra Garibay MD Head CT 02/07/171946 Signed Impressions: Service Date/Time: Tuesday, February 07, 2017 20:03 - CONCLUSION: No acute intracranial injury Tra Garibay MD Objective Remarks GENERAL: 86-year-old [place] male, critically ill currently orotracheally intubated SKIN: Warm and dry. No rash HEAD: Atraumatic. Normocephalic. EYES: Pupils equal and round about 4 mm bilaterally and reactive. No scleral icterus. No injection or drainage. ENT: No nasal bleeding or discharge. Mucous membranes pink and moist. Oropharynx without erythema NECK: Trachea midline. Minimal JVD. CARDIOVASCULAR: Regular rate and rhythm. S1, S2. No S4. RESPIRATORY: Diminished breath sounds right lung brandt. Few crackles appreciated bilaterally. GASTROINTESTINAL: Abdomen protuberant. Nontender. Hypoactive bowel sounds are appreciated. MUSCULOSKELETAL: Extremities with trace to 1+ lower extremity pitting edema. No obvious deformities. NEUROLOGICAL: Arousable on sedation vacation but not following commands. Positive gag. Positive corneal reflex. 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 Punctuate micro- bleeds throughout. EEG 02/16 reveals moderate to severe encephalopathy. No epileptiform activity. We'll consult neurology routine for recommendations. Respiratory: Acute hypoxic respiratory failure Aspiration pneumonitis Frwhx-zl-ooslhed aspiration Mod to large R effusion/small left pleural effusion Right upper lobe pulmonary nodules 5 and 10 mm. Recommend follow up CT in 3-6 months [facility] 15500/1.12/12/34 -- vent bundle Bronchodilator therapy every 6 hours with albuterol every 2 hours for breakthrough -- HOB at 30 degrees -- wean fiO2 for goal spo2 > 92% CT chest 02/16 revealed moderate to large right pleural effusion and atelectasis/ small left pleural effusion. Possible thoracentesis today versus placement of pigtail catheter Cardiovascular: Atrial Fibrillation with Rapid Ventricular Response- resolved. Sinus tachycardia Distributive shock Acute systolic heart failure Small pericardial effusion Echocardiogram 02/19 revealed EF 30-35%. Moderate TR. MARIA 53 mmHg. -- Off Cardizem drip for HR control Home medications metoprolol 50 mg daily, losartan 100 mg daily and hydralazine 50 mg twice a day currently on hold. -- Phenylephrine as needed for goal map > 65 mmHg. currently off now. -- Bumex 2 mg IV q12. UO 2.7 L in 24 hours, cr improved to 3.1 Renal: Acute Kidney Injury secondary to ATN secondary to hypoperfusion -- Bumex 2 mg IV q12 -- Nephrology following. Renal function improving cr 3.1 yesterday. A.m. laboratories still pending. On free water 200 every 6 -- Zimmerman FEN/GI: Acute protein calorie malnutrition- severe C.Difficile Colitis Diarrhea Acute on chronic Aspiration Constipation -- TF with Jevity 1.5 goal 60 cc an hour Colace twice a day/Senokot twice a day, 1 dose of MiraLAX and lactulose today. [address] today. [address] abdomen/pelvis revealed left kidney protrusion, bilateral pleural effusions and small pericardial effusion. Significant edema to her body cavity. Heme/ID: C. Difficile Colitis Sepsis acute on chronic aspiration with pneumonitis -- ID/Dr. Garcia following -- ABX per ID -- Continue Cefepime, Continue Flagyl, for aspiration and C diff. Azithromycin discontinued 02/16 Pertinent cultures 02/07 - blood cultures 2 - no growth 02/08 - stool -- C. difficile positive 02/09 - blood cultures 2 - no growth 02/12 - urine - no growth 02/13 - sputum - no growth 02/15 - blood cultures 2 - no growth Endocrine: Hyperglycemia of critical illness -- SSI, q6h, med scale Prophylaxis: SCDs, SQH to be held with micro-hemorrhages. Resume when clinically indicated, Protonix Critical Care: The total critical care time was 35 minutes. Time to perform other separately billable procedures was not included in the critical care time. Gerry Mike MD Feb 17, 2017 10:16
[2017-02-17 10:30] LABS: EOSINOPHIL % 0.1 % (0.0-4.0); HEMATOCRIT 29.5 % (39.0-51.0); HEMO FLAGS AUTO DIFF; LYMPH % 5.7 % (9.0-44.0); MEAN CELL VOLUME 87.9 FL (80.0-100.0); MEAN CORPUSCULAR HEMOGLOBIN 29.4 PG (27.0-34.0); MEAN CORPUSCULAR HGB CONC 33.4 % (32.0-36.0); MONO % 9.7 % (0.0-8.0); NEUT % 84.5 % (16.0-70.0); PLATELET COUNT 281 TH/MM3 (150-450); RED BLOOD COUNT 3.36 MIL/MM3 (4.50-5.90); RED CELL DISTRIBUTION WIDTH 15.5 % (11.6-17.2); WHITE BLOOD COUNT 17.8 TH/MM3 (4.0-11.0)
[2017-02-17 10:34] LABS: ANION GAP 12 MEQ/L (5-15); AST (GOT) 109 U/L (15-37); BLOOD UREA NITROGEN 49 MG/DL (7-18); CHLORIDE 98 MEQ/L (98-107); GLOMERULAR FILTRATION RATE 26 ML/MIN (>89); SODIUM (NA) 132 MEQ/L (136-145)
[2017-02-17 10:36] LABS: ALKALINE PHOSPHATASE 64 U/L (45-117); ALT (GPT) 34 U/L (12-78); TOTAL BILIRUBIN ADULT 0.4 MG/DL (0.2-1.0)
[2017-02-17 10:43] LABS: POTASSIUM 4.8 MEQ/L (3.5-5.1)
[2017-02-17 11:45] LABS: BANDS 9 % (0-6); PLATELET ESTIMATE SMEAR NORMAL (NORMAL); PLATELET MORPHOLOGY ENLARGED (NORMAL); POLYS (SEG NEUTROPHILS) 81 % (16-70); SCAN/DIFF FINAL DIFF MANUAL; WBC DIFF SAMPLE 100
[2017-02-17 11:46] LABS: OVALOCYTES 1+ (NORMAL)
[2017-02-17] MEDS: PROPOFOL 1000 MG/100 ML INJ 100 ML IV SCH (12:34)
[2017-02-17] MEDS: ARTIFICIAL TEARS OPTH SOLN 15 ML BTL EACH EYE SCH ×2 (14:37→21:34)
[2017-02-17] MEDS: CEFEPIME INJ 1,000 MG in SODIUM CHLORIDE 0.9% INJ 100 ML IV SCH (14:37)
--- NOTE | 2017-02-17 15:07 | HHI.NPPN ---
Subjective General Problems: Hypotension Renal Failure: Chronic, Acute Review of Systems General General Remarks unable to obtain due to intubation/sedation Objective Data Data 02/16/17 02/17/17 19:00 07:00 Intake Total 1261 ml 1707 ml Output Total 600 ml 1700 ml Balance 661 ml 7 ml IV Total 661 ml 510 ml Tube Feeding 120 ml 797 ml Other 480 ml 400 ml Output Urine Total 600 ml 1700 ml # Bowel Movements 0 0 Vital Signs Date Time Temp Pulse Resp B/P Pulse Ox O2 Delivery O2 Flow Rate FiO2 02/17/17 12:00 35 02/17/17 12:00 97.5 99 15 128/60 95 02/17/17 12:00 99 02/17/17 11:50 94 35 02/17/17 10:00 103 02/17/17 09:05 98 45 02/17/17 08:00 98.8 100 15 93/53 93 02/17/17 08:00 35 02/17/17 08:00 100 02/17/17 06:00 118 02/17/17 04:10 92 35 02/17/17 04:00 100.7 115 15 112/74 92 02/17/17 04:00 35 02/17/17 04:00 115 02/17/17 02:00 121 02/17/17 01:06 93 35 02/17/17 00:00 99.8 121 15 99/51 93 02/17/17 00:00 121 02/17/17 00:00 45 02/16/17 22:16 95 35 02/16/17 22:00 115 02/16/17 20:00 132 02/16/17 20:00 100.7 132 15 123/65 92 02/16/17 20:00 35 02/16/17 19:27 92 40 02/16/17 18:00 128 02/16/17 16:53 95 35 02/16/17 16:00 35 02/16/17 16:00 108 02/16/17 16:00 99.7 108 18 170/72 96 -: 02/17/17 0959 02/17/17 0959 Tubes & Lines: Zimmerman Drip Comment fentanyl Physical Exam General Appearance: No Acute Distress, Sleeping, Malnourished Eyes Eye Exam: Pupils Equal Throat Throat Exam: Oral Mucosa [place] & Moist Pulmonary Resp Exam: Breath Sounds Equal, Crackles, Rhonchi Cardiology CV Exam: Regular, Tachycardia Gastrointestinal/Abdomen GI Exam: Non-Tender, Bowel Sounds Present Musculoskeletal MS Exam: Joints Intact, Atrophy, Unable to Ambulate Integumentary Skin Exam: Clear, Warm, Dry, Intact Extremeties Extremities Exam: No Edema, Pedal Pulses Palpable Neurologic Neuro Exam: Unresponsive, Sedated VTE Prophylaxis Device: SCDs Assessment/Plan Assessment Summary: WILLIE/Acute Renal Failure Problem List: (1) Acute renal failure Plan: in a patient whose baseline creatinine was 1.7 in 2006 ATN from renal hypoperfusion renal function has improved, good urine output K is normal, no evidence of acidosis continue diuresis with Bumex BID, monitor response avoid nephrotoxins, renally dose medications when appropriate daily renal panel Nonoliguric good response to Bumex 2 mg 12 UOP 2.3 L yesterday today 500 cc may give albumin (2) Encephalopathy Plan: multifactorial, has hx of dementia was septic and in acute hypoxic respiratory failure continue supportive measures EEG reviewed, (3) Dysphagia Plan: likely will need PEG placement due to chronic aspiration (4) Pneumonia Plan: likely aspiration related on cefepime and Zithromax, IV flagyl also appreciate respiratory therapy assistance continue vent management, ween per protocol current vent settings: 15/500/40/7 (5) Clostridium difficile infection Plan: on IV flagyl contact precautions Problem Qualifiers (1) Pneumonia: Qualified Code: J18.1 - Pneumonia of right lower lobe due to infectious organism Carla Robles MD Feb 17, 2017 15:07 organism Carla Robles MD Feb 17, 2017 15:07
[2017-02-17] MEDS: ALBUMIN HUMAN 25% 25 GM/100 ML BAGP IV SCH (17:01)
--- NOTE | 2017-02-17 17:49 | PD.PROCEDR ---
Procedure Note Procedure Date of procedure: 02/17/2017 Procedure: Right #10 Khmer pigtail chest tube placement Indication: Right pleural effusion Details of procedure: Informed consent was obtained from the . The patient was laid supine. The lateral chest wall was cleaned with ChloraPrep twice. Regional sterile drapes were applied. 1% lidocaine was used for local anesthesia and injected into the subcutaneous and deep muscle tissues. A 0.5 cm skin incision was made with a scalpel blade. Introducer needle was placed through the anesthetized site above. In the mid axillary . Clear yellow fluid was retrieved. A size 10 Khmer chest tube was inserted into the pleural cavity appropriate marking.. 2- 0 silk was used to close the wound and to secure the chest tube. A sterile Vaseline gauze dressing was applied. The chest tube was connected to a Pleur- evac drainage system. There was not a persistent air leak. There was 500 cc clear yellow output from the chest tube. Estimated blood loss: Minimal Complications: None. Stat chest x-ray pending at time of dictation. Gerry Mike MD Feb 17, 2017 17:49
--- NOTE | 2017-02-17 19:05 | RADRPT ---
EXAM DATE/TIME: 02/17/2017 17:56 [facility] COMPARISON: CHEST SINGLE AP, February 17, 2017, 3:54. INDICATIONS : Post right thoracentesis. MEDICAL HISTORY : None. SURGICAL HISTORY : None. ENCOUNTER: Subsequent ACUITY: 1 week PAIN SCORE: 0/10 LOCATION: Bilateral chest FINDINGS: A single view of the chest demonstrates endotracheal tube in good position. NG enters stomach. Small caliber right chest tube without pneumothorax. Mild basilar airspace disease. No significant effusion identified. CONCLUSION: 1. Small caliber right chest tube present without significant pneumothorax. Basilar airspace disease slightly improved on right since exam from earlier today. Clarence Gross MD on February 17, 2017 at 19:02 Board Certified Radiologist. This report was verified electronically.
[2017-02-17 21:08] LABS: MEAN CORPUSCULAR HGB CONC 36.2 % (32.0-36.0)
[2017-02-17] MEDS: DOCUSATE SODIUM 100 MG CAP PO SCH (21:33)
[2017-02-17] MEDS: SENNOSIDES SYRUP 8.8 MG/5 ML CUP PO SCH (21:34)
[2017-02-18] VITALS (19 sets, daily range): BP systolic 95–143; BP diastolic 55–84; PULSE 107–129; RESP 17–18; TEMP 98–99.6; O2SAT 94–100
[2017-02-18] MEDS: metroNIDAZOLE 500 MG INJ 100 ML IV SCH ×4 (01:01→23:42)
[2017-02-18] MEDS: RESP: ALBUTEROL 2.5 MG/IPRATROPIUM 0.5 MG NEB (SCH) INH ×5 (03:03→20:41)
[2017-02-18] MEDS: ALBUMIN HUMAN 25% 25 GM/100 ML BAGP IV SCH ×4 (04:02→23:42)
[2017-02-18] MEDS: FREE WATER G-TUBE SCH ×5 (06:00→23:42)
[2017-02-18] MEDS: ARTIFICIAL TEARS OPTH SOLN 15 ML BTL EACH EYE SCH ×3 (06:27→21:28)
[2017-02-18] MEDS: PROPOFOL 1000 MG/100 ML INJ 100 ML IV SCH (06:27)
[2017-02-18 07:27] LABS: AUTOMATED NEUTROPHIL # 14.4 TH/MM3 (1.8-7.7); BASOPHIL % 0.2 % (0.0-2.0); EOSINOPHIL # 0.1 TH/MM3 (0-0.4); EOSINOPHIL % 0.7 % (0.0-4.0); HEMATOCRIT 25.4 % (39.0-51.0); HEMO FLAGS AUTO DIFF; LYMPH % 4.2 % (9.0-44.0); LYMPHOCYTE # 0.7 TH/MM3 (1.0-4.8); MEAN CELL VOLUME 88.2 FL (80.0-100.0); MEAN CORPUSCULAR HEMOGLOBIN 31.9 PG (27.0-34.0); MONO % 8.6 % (0.0-8.0); NEUT % 86.3 % (16.0-70.0); PLATELET COUNT 334 TH/MM3 (150-450); RED BLOOD COUNT 2.88 MIL/MM3 (4.50-5.90); RED CELL DISTRIBUTION WIDTH 15.6 % (11.6-17.2); WHITE BLOOD COUNT 16.7 TH/MM3 (4.0-11.0)
[2017-02-18 07:36] LABS: MAGNESIUM 1.7 MG/DL (1.5-2.5)
[2017-02-18] MEDS: INSULIN NovoLIN REGULAR SUPPLEMENTAL SCALE SQ SCH ×4 (07:37→18:20)
[2017-02-18] MEDS ORDERED: LACTULOSE SYRUP 20 GM/30 ML CUP PO SCH (09:00)
[2017-02-18 09:44] LABS: OVALOCYTES 3+ (NORMAL); SCAN/DIFF AUTO DIFF CONFIRMED
--- NOTE | 2017-02-18 10:06 | HHI.CCPN ---
Subjective Remarks/Hospital Course Hospital Course: This is a 86yM who presented from home with altered mental status and end-stage dementia. His hospital course has been complicated by C. Diff and pneumonia for which he is on appropriate therapy. He has been noted to have usmdl-ec-[id number] aspiration during this hospital stay and has been NPO. Today, a rapid response was called for acute respiratory distress and hypoxia. I was called by Dr. Velez at the rapid response. He believe this is an aspiration event given the patient's clinical history. I immediately went and evaluated the patient. He is labored and in distress. his spo2 is 93% on non-rebreather. He is also in what appears to be new-onset atrial fibrillation with RVR and a HR 160s. Brief review of the pertinent laboratory data demonstrate worsening acute kidney injury, worsening anion-gap metabolic acidosis. Critical care medicine is consulted to evaluate and manage his severe respiratory distress and afib RVR. Unfortunately, the patient is obtunded and cannot provide any additional history. 02/13: no clinical improvements. remains in multiorgan system failure. diltiazem drip weaned to off, but remains on phenylephrine. talked with nephrology who feel clinically, despite some element of JVD, that patient is clinically intravascularly hypovolemic and they recommend gentle ivf hydration, which I am ok with as a trial. mental status poor. kidney injury persists. palliative involved. apparently daughter is not health care surrogate legally, but has been making decisions in the outpatient setting. multiple disagreements within the family. appreciate palliative involvement. 02/14: Renal function continues to worsen and today 57/4.1. D/w Nephrology. If family wants everything done, will need to proceed with HD. Tmax 101.1. ID following 02/15: Remains critically ill, did not tolerate brief CPAP trial. CXR shows mod to large R pl effusion. MAXIMUM TEMPERATURE 100.5. Creatinine slightly improved with urine output more than 1.4 L 02/16: Patient remains intubated, lightly sedated.. Did not tolerate C-peptide yesterday due to tachypnea. CT of the chest shows moderately large right effusion plan for thoracentesis 02/17: Tmax 100.7. No bowel movement since 02/12. On sedation vacation withdrawals but does not follow commands. Tolerating tube feeds at goal. Subjective: 02/18: Afebrile. One bowel movement overnight. Tolerating tube feeding. Placement of 10 [place] pigtail catheter with 600 cc likely transudative effusion. Tachycardic this AM. . Objective Vital Signs Date Time Temp Pulse Resp B/P Pulse Ox O2 Delivery O2 Flow Rate FiO2 02/18/17 08:51 100 35 02/18/17 06:00 120 02/18/17 04:00 98.0 18 117/58 Intake and Output 02/17/17 02/17/17 02/18/17 08:00 16:00 00:00 Intake Total 1018 ml 1045 ml 661 ml Output Total 300 ml 500 ml 1350 ml Balance 718 ml 545 ml -689 ml Result Diagram: 02/18/17 0600 02/17/17 0959 Other Results Microbiology Date/Time Procedure Status Source Growth 02/15/17 15:05 Aerobic Blood Culture - Preliminary Resulted Blood Peripheral NO GROWTH IN 2 DAYS 02/15/17 15:05 Anaerobic Blood Culture - Final Resulted Blood Peripheral QNS - SEE AEROBE REPORT 02/13/17 10:45 Gram Stain - Final Complete Sputum Endotracheal 02/13/17 10:45 Sputum Culture - Final Complete Sputum Endotracheal NO GROWTH IN 48 HOURS. Imaging Last Impressions Chest X-Ray 02/17/17 0600 Signed Impressions: Service Date/Time: Friday, February 17, 2017 03:54 - CONCLUSION: 1. Bilateral lower lobe atelectasis versus pneumonia. Bilateral effusions. There has been no significant change when compared to the prior exam. Jorge Luis Pritchard MD Chest CT 02/16/17 0000 Signed Impressions: Service Date/Time: Thursday, February 16, 2017 13:26 - CONCLUSION: 1. Moderate to large right and small left pleural effusion with associated compressive atelectasis. There additionally is airspace consolidation in the right lower lobe. 2. Small pericardial effusion. 3. There are 2 nodules in the right upper lobe measuring 5 mm and 10 mm. Suggest attention to these at followup imaging. Tra Ma MD Brain MRI 02/16/17 0000 Signed Impressions: Service Date/Time: Thursday, February 16, 2017 13:44 - CONCLUSION: Atrophy and extensive white matter disease as well as micro-bleeds the route the cerebral hemispheres and cerebellum. Punctate foci of acute infarction are suspected within the bilateral frontal white matter as described above. Scott Garcia MD Abdomen/Pelvis CT 02/16/17 0000 Signed Impressions: Service Date/Time: Thursday, February 16, 2017 13:26 - CONCLUSION: 1. Diffuse body wall edema, bilateral effusions, pericardial effusion and lower lobe atelectasis and consolidation. 2. Atherosclerosis. Scott Garcia MD Abdomen X-Ray 02/15/17 0000 Signed Impressions: Service Date/Time: February 11:42 - CONCLUSION: Nonspecific abdomen appearance. Tra Garibay MD Head CT 02/07/171946 Signed Impressions: Service Date/Time: Tuesday, February 07, 2017 20:03 - CONCLUSION: No acute intracranial injury Tra Garibay MD Objective Remarks GENERAL: 86-year-old [place] male, critically ill currently orotracheally intubated SKIN: Warm and dry. No rash HEAD: Atraumatic. Normocephalic. EYES: Pupils equal and round about 3-4 mm bilaterally and reactive. No scleral icterus. No injection or drainage. ENT: No nasal bleeding or discharge. Mucous membranes pink and moist. Oropharynx without erythema NECK: Trachea midline. Minimal JVD. CARDIOVASCULAR: Tachycardic, RR. S1, S2. No S4. No murmur appreciated RESPIRATORY: Improved breath sounds/aeration throughout the right lung field. Few crackles in bases bilaterally. No wheeze GASTROINTESTINAL: Abdomen protuberant. Nontender. Hypoactive bowel sounds are appreciated. MUSCULOSKELETAL: Extremities with trace to 1+ lower extremity pitting edema. No obvious deformities. NEUROLOGICAL: Arousable on sedation vacation but not following commands. Positive gag. Positive corneal reflex. 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 Punctuate micro- bleeds throughout. EEG 02/16 reveals moderate to severe encephalopathy. No epileptiform activity. We'll consult neurology routine for recommendations on Sunday. Respiratory: Acute hypoxic respiratory failure Aspiration pneumonitis Lnezg-zf-[id number] aspiration Mod to large R effusion/small left pleural effusion Right upper lobe pulmonary nodules 5 and 10 mm. Recommend follow up CT in 3-6 months [facility] 16/1.11/11/34 -- vent bundle Bronchodilator therapy every 6 hours with albuterol every 2 hours for breakthrough -- HOB at 30 degrees -- wean fiO2 for goal spo2 > 92% CT chest 02/16 revealed moderate to large right pleural effusion and atelectasis/ small left pleural effusion. Status post placement of pigtail catheter right effusion 03/19. -40 cm. 630 cc clear Cardiovascular: Atrial Fibrillation with Rapid Ventricular Response- resolved. Sinus tachycardia Distributive shock Acute systolic heart failure Small pericardial effusion Echocardiogram 02/19 revealed EF 30-35%. Moderate TR. MARIA 53 mmHg. -- Off Cardizem drip for HR control Home medications metoprolol 50 mg daily, losartan 100 mg daily and hydralazine 50 mg twice a day currently on hold. -- Start low-dose Lopressor 2.5 every 6 with holding parameters -- Bumex 2 mg IV q12. UO 2.7 L in 24 hours, cr improved to 2.8 Renal: Acute Kidney Injury secondary to ATN secondary to hypoperfusion -- Bumex 2 mg IV q12 -- Nephrology following. Renal function improving cr 2.8 yesterday. A.m. laboratories still pending. On free water 100 every 6 -- Zimmerman FEN/GI: Acute protein calorie malnutrition- severe C.Difficile Colitis Diarrhea Acute on chronic Aspiration Constipation -- TF with Jevity 1.5 goal 60 cc an hour Colace twice a day/Senokot twice a day, 1 dose of MiraLAX and lactulose today. 1 dose of [address] today. CT abdomen/pelvis revealed left kidney protrusion, bilateral pleural effusions and small pericardial effusion. Significant edema to her body cavity. Heme/ID: C. Difficile Colitis Sepsis acute on chronic aspiration with pneumonitis Leukocytosis -- ID/Dr. Garcia following -- ABX per ID -- Continue Cefepime, Continue Flagyl, for aspiration and C diff. Azithromycin discontinued 02/16 Pertinent cultures 02/07 - blood cultures 2 - no growth 02/08 - stool -- C. difficile positive 02/09 - blood cultures 2 - no growth 02/12 - urine - no growth 02/13 - sputum - no growth 02/15 - blood cultures 2 - no growth Recheck sputum/urine today with elevated white blood cell count Endocrine: Hyperglycemia of critical illness -- SSI, q6h, med scale Prophylaxis: SCDs, SQH to be held with micro-hemorrhages. Resume when clinically indicated, Protonix Critical Care: The total critical care time was 35 minutes. Time to perform other separately billable procedures was not included in the critical care time. Gerry Mike MD Feb 18, 2017 10:06
[2017-02-18] MEDS: SENNOSIDES SYRUP 8.8 MG/5 ML CUP PO SCH ×2 (10:12→21:28)
[2017-02-18] MEDS: ASPIRIN 81 MG CHEW TAB CHEW SCH (10:13)
[2017-02-18] MEDS: LACTOBACILLUS ACIDOPHILUS TAB PO SCH ×3 (10:13→18:14)
[2017-02-18] MEDS: DOCUSATE SODIUM 100 MG CAP PO SCH ×2 (10:13→21:28)
[2017-02-18] MEDS: BUMETANIDE INJ 1 MG/4 ML VIAL IV PUSH SCH ×2 (10:13→18:18)
[2017-02-18] MEDS: MAGNESIUM SULFATE 1 GM PREMIX 100 ML IV SCH ×2 (10:26→11:58)
[2017-02-18] MEDS: METOPROLOL TARTRATE 5 MG/5 ML VIAL IV PUSH SCH ×3 (10:26→23:42)
[2017-02-18 11:17] LABS: BICARBONATE 21.8 MEQ/L (21.0-32.0); POTASSIUM 4.3 MEQ/L (3.5-5.1)
[2017-02-18 11:22] LABS: BACTERIA, URINE RARE /hpf; BLOOD, URINE MOD (NEG); COMMENT (UR) CATH-CULTURE IND; CULTURE IF INDICATED CATH CULTURE IND; GLUCOSE,URINE NEG (NEG); KETONE, URINE NEG (NEG); MUCUS URINE FEW /lpf (OCC); NITRITE,URINE NEG (NEG); SQUAMOUS EPITHELIAL CELL URINE 1 /hpf (0-5); TRANSITIONAL EPI CELLS, URINE <1 /hpf; URINE COLOR YELLOW (YELLW/STRAW)
[2017-02-18 11:40] LABS: CALCIUM-PROTEIN CORRECTED 7.7 MG/DL (8.5-10.1)
[2017-02-18] MEDS: ACETAMINOPHEN 500 MG CPLT PO PRN (11:59)
[2017-02-18] MEDS: CHLORHEXIDINE 0.12% (ORAL KIT) 15 ML CUP MT SCH ×2 (12:08→21:30)
--- NOTE | 2017-02-18 15:14 | HHI.NPPN ---
Subjective General Problems: Hypotension Renal Failure: Chronic, Acute Review of Systems General General Remarks unable to obtain due to intubation/sedation Objective Data Data 02/17/17 02/18/17 18:59 06:59 Intake Total 1045 ml 1658 ml Output Total 500 ml 2205 ml Balance 545 ml -547 ml IV Total 195 ml 303 ml Tube Feeding 450 ml 855 ml Other 400 ml 500 ml Output Urine Total 500 ml 1575 ml Chest Tube Drainage Total 630 ml # Bowel Movements 1 0 Vital Signs Date Time Temp Pulse Resp B/P Pulse Ox O2 Delivery O2 Flow Rate FiO2 02/18/17 15:07 98 35 02/18/17 12:20 96 35 02/18/17 08:51 100 35 02/18/17 08:00 40 02/18/17 06:00 120 02/18/17 04:19 97 35 02/18/17 04:00 98.0 120 18 117/58 98 02/18/17 04:00 40 02/18/17 04:00 120 02/18/17 02:00 120 02/18/17 01:12 98 35 02/18/17 00:00 127 02/18/17 00:00 40 02/18/17 00:00 98.1 127 17 132/84 100 02/17/17 22:11 100 35 02/17/17 22:00 120 02/17/17 21:16 100 50 02/17/17 20:00 113 02/17/17 20:00 40 02/17/17 20:00 98.2 113 18 130/53 100 02/17/17 18:00 117 02/17/17 16:00 98.9 116 21 110/14 93 02/17/17 16:00 35 02/17/17 16:00 116 02/17/17 15:45 99 35 -: 02/18/17 0600 02/18/17 0600 Microbiology 02/18/17 Urine Culture, Received Pending Tubes & Lines: Zimmerman Drip Comment fentanyl Physical Exam General Appearance: No Acute Distress, Sleeping, Malnourished Eyes Eye Exam: Pupils Equal Throat Throat Exam: Oral Mucosa [place] & Moist Pulmonary Resp Exam: Breath Sounds Equal, Crackles, Rhonchi Cardiology CV Exam: Regular, Tachycardia Gastrointestinal/Abdomen GI Exam: Non-Tender, Bowel Sounds Present Musculoskeletal MS Exam: Joints Intact, Atrophy, Unable to Ambulate Integumentary Skin Exam: Clear, Warm, Dry, Intact Extremeties Extremities Exam: No Edema, Pedal Pulses Palpable Neurologic Neuro Exam: Unresponsive, Sedated VTE Prophylaxis Device: SCDs Assessment/Plan Assessment Summary: WILLIE/Acute Renal Failure Problem List: (1) Acute renal failure Plan: in a patient whose baseline creatinine was 1.7 in 2006 ATN from renal hypoperfusion renal function has improved, good urine output K is normal, no evidence of acidosis continue diuresis with Bumex BID, monitor response avoid nephrotoxins, renally dose medications when appropriate daily renal panel Nonoliguric good response to Bumex 2 mg 12 UOP 2. L given albumin now at q 6, Na 128 follow (2) Encephalopathy Plan: multifactorial, has hx of dementia was septic and in acute hypoxic respiratory failure continue supportive measures EEG reviewed, (3) Dysphagia Plan: likely will need PEG placement due to chronic aspiration (4) Pneumonia Plan: likely aspiration related on cefepime and Zithromax, IV flagyl also appreciate respiratory therapy assistance continue vent management, jobyen per protocol current vent settings: 15/500/40/7 (5) Clostridium difficile infection Plan: on IV flagyl contact precautions Problem Qualifiers (1) Pneumonia: Qualified Code: J18.1 - Pneumonia of right lower lobe due to infectious organism Carla Robles MD Feb 18, 2017 15:14
[2017-02-18] MEDS: CEFEPIME INJ 1,000 MG in SODIUM CHLORIDE 0.9% INJ 100 ML IV SCH (15:30)
[2017-02-18] MEDS: fentaNYL DRIP 250 ML IV SCH (18:59)
[2017-02-18] MEDS ORDERED: POLYETHYLENE GLYCOL 17 GM PKG PO ONE (19:30)
[2017-02-18] MEDS: LACTULOSE SYRUP 20 GM/30 ML CUP PO SCH (23:39)
[2017-02-19] VITALS (19 sets, daily range): BP systolic 113–141; BP diastolic 57–66; PULSE 100–119; RESP 16–18; TEMP 98.8–100.7; O2SAT 94–100
[2017-02-19] MEDS: RESP: ALBUTEROL 2.5 MG/IPRATROPIUM 0.5 MG NEB (SCH) INH ×4 (03:24→20:03)
[2017-02-19] MEDS: PROPOFOL 1000 MG/100 ML INJ 100 ML IV SCH ×3 (04:39→20:32)
[2017-02-19] MEDS: METOPROLOL TARTRATE 5 MG/5 ML VIAL IV PUSH SCH ×4 (04:40→23:07)
[2017-02-19] MEDS: FREE WATER G-TUBE SCH ×4 (05:39→23:06)
[2017-02-19] MEDS: INSULIN NovoLIN REGULAR SUPPLEMENTAL SCALE SQ SCH ×5 (05:39→23:07)
[2017-02-19] MEDS: ARTIFICIAL TEARS OPTH SOLN 15 ML BTL EACH EYE SCH ×3 (05:39→20:32)
[2017-02-19 05:57] LABS: HEMATOCRIT 27.5 % (39.0-51.0); MEAN CELL VOLUME 87.7 FL (80.0-100.0); MEAN CORPUSCULAR HEMOGLOBIN 30.4 PG (27.0-34.0); MEAN CORPUSCULAR HGB CONC 34.6 % (32.0-36.0); PLATELET COUNT 325 TH/MM3 (150-450); RED BLOOD COUNT 3.13 MIL/MM3 (4.50-5.90); RED CELL DISTRIBUTION WIDTH 15.5 % (11.6-17.2); WHITE BLOOD COUNT 18.5 TH/MM3 (4.0-11.0)
[2017-02-19 06:01] LABS: HEMO FLAGS AUTO DIFF
[2017-02-19 06:12] LABS: BICARBONATE 30.6 MEQ/L (21.0-32.0); POTASSIUM 4.2 MEQ/L (3.5-5.1)
[2017-02-19] MEDS: LACTULOSE SYRUP 20 GM/30 ML CUP PO SCH ×2 (07:40→11:11)
[2017-02-19] MEDS: ALBUMIN HUMAN 25% 25 GM/100 ML BAGP IV SCH (07:40)
[2017-02-19 07:55] LABS: BANDS 6 % (0-6); CORRECTED NUCLEATED RBC 1 /100 WBC (0-0); NEUTROPHIL # MANUAL DIFF 16.3 TH/MM3 (1.8-7.7); PLASMA CELLS 1 % (0-0); POLYS (SEG NEUTROPHILS) 82 % (16-70); WBC DIFF SAMPLE 100
[2017-02-19 07:58] LABS: OVALOCYTES 2+ (NORMAL); PLATELET ESTIMATE SMEAR NORMAL (NORMAL); PLATELET MORPHOLOGY NORMAL (NORMAL); SCAN/DIFF FINAL DIFF MANUAL
[2017-02-19] MEDS ORDERED: MINERAL OIL LIQUID 30 ML CUP PO ONE (09:00)
[2017-02-19] MEDS ORDERED: POLYETHYLENE GLYCOL 17 GM PKG PO SCH ×2 (09:00)
[2017-02-19] MEDS ORDERED: DIATRIZOATE MEGLUM/DIATRIZOATE SOD 9 ML CUP PO ONE (09:45)
--- NOTE | 2017-02-19 09:48 | HHI.CCPN ---
Subjective Remarks/Hospital Course Hospital Course: This is a 86yM who presented from home with altered mental status and end-stage dementia. His hospital course has been complicated by C. Diff and pneumonia for which he is on appropriate therapy. He has been noted to have [id number]-[id number] aspiration during this hospital stay and has been NPO. Today, a rapid response was called for acute respiratory distress and hypoxia. I was called by Dr. Velez at the rapid response. He believe this is an aspiration event given the patient's clinical history. I immediately went and evaluated the patient. He is labored and in distress. his spo2 is 93% on non-rebreather. He is also in what appears to be new-onset atrial fibrillation with RVR and a HR 160s. Brief review of the pertinent laboratory data demonstrate worsening acute kidney injury, worsening anion-gap metabolic acidosis. Critical care medicine is consulted to evaluate and manage his severe respiratory distress and afib RVR. Unfortunately, the patient is obtunded and cannot provide any additional history. 02/13: no clinical improvements. remains in multiorgan system failure. diltiazem drip weaned to off, but remains on phenylephrine. talked with nephrology who feel clinically, despite some element of JVD, that patient is clinically intravascularly hypovolemic and they recommend gentle ivf hydration, which I am ok with as a trial. mental status poor. kidney injury persists. palliative involved. apparently daughter is not health care surrogate legally, but has been making decisions in the outpatient setting. multiple disagreements within the family. appreciate palliative involvement. 02/14: Renal function continues to worsen and today 57/4.1. D/w Nephrology. If family wants everything done, will need to proceed with HD. Tmax 101.1. ID following 02/15: Remains critically ill, did not tolerate brief CPAP trial. CXR shows mod to large R pl effusion. MAXIMUM TEMPERATURE 100.5. Creatinine slightly improved with urine output more than 1.4 L 02/16: Patient remains intubated, lightly sedated.. Did not tolerate C-peptide yesterday due to tachypnea. CT of the chest shows moderately large right effusion plan for thoracentesis 02/17: Tmax 100.7. No bowel movement since 02/12. On sedation vacation withdrawals but does not follow commands. Tolerating tube feeds at goal. 4/16: Afebrile. One bowel movement overnight. Tolerating tube feeding. Placement of 10 [place] pigtail catheter with 600 cc likely transudative effusion. Tachycardic this AM. Subjective: 02/19: Currently down for CT abdomen/pelvis with distended abdomen. Also MRA brain/neck with acute/subacute bifrontal CVA. Neurology consult pending. Will likely need tracheostomy. Objective Vital Signs Date Time Temp Pulse Resp B/P Pulse Ox O2 Delivery O2 Flow Rate FiO2 02/19/17 07:31 99 35 02/19/17 04:00 100.1 114 16 138/63 Intake and Output 02/18/17 02/18/17 02/19/17 08:00 16:00 00:00 Intake Total 997 ml 1236 ml 806 ml Output Total 855 ml 730 ml 480 ml Balance 142 ml 506 ml 326 ml Result Diagram: 02/19/17 0516 02/19/17 0516 Other Results Microbiology Date/Time Procedure Status Source Growth 02/18/17 10:38 Urine Culture Received Urine Clean Catch Pending 02/15/17 15:05 Aerobic Blood Culture - Preliminary Resulted Blood Peripheral NO GROWTH IN 3 DAYS 02/15/17 15:05 Anaerobic Blood Culture - Final Resulted Blood Peripheral QNS - SEE AEROBE REPORT Imaging Last Impressions Chest X-Ray 02/17/17 0600 Signed Impressions: Service Date/Time: Friday, February 17, 2017 03:54 - CONCLUSION: 1. Bilateral lower lobe atelectasis versus pneumonia. Bilateral effusions. There has been no significant change when compared to the prior exam. Jorge Luis Pritchard MD Chest CT 02/16/17 0000 Signed Impressions: Service Date/Time: Thursday, February 16, 2017 13:26 - CONCLUSION: 1. Moderate to large right and small left pleural effusion with associated compressive atelectasis. There additionally is airspace consolidation in the right lower lobe. 2. Small pericardial effusion. 3. There are 2 nodules in the right upper lobe measuring 5 mm and 10 mm. Suggest attention to these at followup imaging. Tra Ma MD Brain MRI 02/16/17 0000 Signed Impressions: Service Date/Time: Thursday, February 16, 2017 13:44 - CONCLUSION: Atrophy and extensive white matter disease as well as micro-bleeds the route the cerebral hemispheres and cerebellum. Punctate foci of acute infarction are suspected within the bilateral frontal white matter as described above. Scott Garcia MD Abdomen/Pelvis CT 02/16/17 0000 Signed Impressions: Service Date/Time: Thursday, February 16, 2017 13:26 - CONCLUSION: 1. Diffuse body wall edema, bilateral effusions, pericardial effusion and lower lobe atelectasis and consolidation. 2. Atherosclerosis. Scott Garcia MD Abdomen X-Ray 02/15/17 0000 Signed Impressions: Service Date/Time: February 11:42 - CONCLUSION: Nonspecific abdomen appearance. Tra Garibay MD Head CT 02/07/171946 Signed Impressions: Service Date/Time: Tuesday, February 07, 2017 20:03 - CONCLUSION: No acute intracranial injury Tra Garibay MD Objective Remarks GENERAL: 86-year-old [place] male, critically ill currently orotracheally intubated SKIN: Warm and dry. No rash HEAD: Atraumatic. Normocephalic. EYES: Pupils equal and round about 3-4 mm bilaterally and reactive. No scleral icterus. No injection or drainage. ENT: No nasal bleeding or discharge. Mucous membranes pink and moist. Oropharynx without erythema NECK: Trachea midline. Minimal JVD. CARDIOVASCULAR: Tachycardic, RR. S1, S2. No S4. No murmur appreciated RESPIRATORY: Improved breath sounds/aeration throughout the right lung field. Few crackles in bases bilaterally. No wheeze GASTROINTESTINAL: Abdomen protuberant. Nontender. Hypoactive bowel sounds are appreciated. MUSCULOSKELETAL: Extremities with trace to 1+ lower extremity pitting edema. No obvious deformities. NEUROLOGICAL: Arousable on sedation vacation but not following commands. Positive gag. Positive corneal reflex. 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 Punctuate micro- bleeds throughout. MRA brain/neck pending Neurology consult pending EEG 02/16 reveals moderate to severe encephalopathy. No epileptiform activity. Respiratory: Acute hypoxic respiratory failure Aspiration pneumonitis Gqzvi-ld-hsrblew aspiration Mod to large R effusion/small left pleural effusion Right upper lobe pulmonary nodules 5 and 10 mm. Recommend follow up CT in 3-6 months [facility] [address]/1.11/11/34 -- vent bundle Bronchodilator therapy every 6 hours with albuterol every 2 hours for breakthrough -- HOB at 30 degrees -- wean fiO2 for goal spo2 > 92% CT chest 02/16 revealed moderate to large right pleural effusion and atelectasis/ small left pleural effusion. Status post placement of pigtail catheter right effusion 03/19. -40 cm. -40 yesterday. Cardiovascular: Atrial Fibrillation with Rapid Ventricular Response- resolved. Sinus tachycardia Distributive shock Acute systolic heart failure Small pericardial effusion Echocardiogram 02/19 revealed EF 30-35%. Moderate TR. MARIA 53 mmHg. -- Off Cardizem drip for HR control Home medications metoprolol 50 mg daily, losartan 100 mg daily and hydralazine 50 mg twice a day currently on hold. -- Start low-dose Lopressor 5 mill grams IV every 6 with holding parameters Renal: Acute Kidney Injury secondary to ATN secondary to hypoperfusion -- Bumex 2 mg IV q12 per nephrology -- Nephrology following. Renal function improving cr 2.7 yesterday. On free water 100 every 6 -- Zimmerman FEN/GI: Acute protein calorie malnutrition- severe C.Difficile Colitis Diarrhea Acute on chronic Aspiration Constipation -- TF with Jevity 1.5 goal 60 cc an hour Colace twice a day/Senokot twice a day, 1 dose of MiraLAX and lactulose today. 1 dose [address] today. CT abdomen/pelvis revealed left kidney protrusion, bilateral pleural effusions and small pericardial effusion. Significant edema to her body cavity. -Repeat CT abdomen/pelvis with distended abdomen. Heme/ID: C. Difficile Colitis Sepsis acute on chronic aspiration with pneumonitis Leukocytosis -- ID/Dr. Garcia following -- ABX per ID -- Continue Cefepime, Continue Flagyl, for aspiration and C diff. Azithromycin discontinued 02/16 Pertinent cultures 02/07 - blood cultures 2 - no growth 02/08 - stool -- C. difficile positive 02/09 - blood cultures 2 - no growth 02/12 - urine - no growth 02/13 - sputum - no growth 02/15 - blood cultures 2 - no growth Recheck sputum/urine today with elevated white blood cell count Endocrine: Hyperglycemia of critical illness -- SSI, q6h, med scale Prophylaxis: SCDs, SQH to be held with micro-hemorrhages. Resume when clinically indicated, Protonix Critical Care: The total critical care time was 35 minutes. Time to perform other separately billable procedures was not included in the critical care time. Gerry Mike MD Feb 19, 2017 09:47 Gerry Mike MD Feb 19, 2017 09:47
--- NOTE | 2017-02-19 11:03 | RADRPT ---
EXAM DATE/TIME: 02/19/2017 09:18 [place] COMPARISON: No previous studies available for comparison. [facility], MRI Brain, November 01, 2016 INDICATIONS : Altered mental status. Respiratory arrest. MEDICAL HISTORY : Unknown SURGICAL HISTORY : Unknown ENCOUNTER: Subsequent ACUITY: 2 weeks PAIN SCORE: 0/10 LOCATION: cranial Please note a normal MRA of the brain does not entirely exclude the possibility of a small aneurysm, nor the possibility of distal intracranial vessel disease. TECHNIQUE: 3D time of flight MRA was performed. Source images, multiplanar STS MIP, and 3D volume MIP reconstru ctions were reviewed. FINDINGS: There is excellent visualization of the major intracranial arteries out to the second-order branch ve ssels. There is no evidence for aneurysm or vessel truncation. However, there does appear be a high grade, focal stenosis in the left P2 segment. 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 Patient is right vertebral dominant. CONCLUSION: 1. 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 Intracranial ve ssels are otherwise patent. 2. No aneurysmal disease. 3. Anatomic variant of the [place] of [place] as above. Patient is right vertebral dominant. Robbie Huggins MD on February 19, 2017 at 10:38 Board Certified Radiologist. This report was verified electronically.
--- NOTE | 2017-02-19 11:06 | RADRPT ---
EXAM DATE/TIME: 02/19/2017 09:18 [facility] COMPARISON: No previous studies available for comparison. INDICATIONS : Altered mental status. Respiratory arrest. MEDICAL HISTORY : Unknown SURGICAL HISTORY : Unknown ENCOUNTER: Subsequent ACUITY: 2 weeks PAIN SCORE: 0/10 LOCATION: neck Percent stenosis is calculated using the diameter of the stenotic region over the diameter of the nor mal distal internal carotid artery. TECHNIQUE: 3D time of flight MRA of the extracranial circulation was performed using a neurovascular coil. Post processing was performed including rotating subvolume maximum intensity projections of each carotid artery, rotating full-volume maximum intensity projections of both carotid arteries, sagittal and cor onal sliding thin-slab reformations of each carotid artery, and left oblique sliding thin slab reform ation through the aortic arch to include the origin of the arch branch vessels. FINDINGS: AORTIC ARCH: Anatomic variant of the aortic arch. There is a bovine configuration and the left vertebral emanates directly from the arch. Arch vessels are all patent. RIGHT CAROTID: The common carotid artery is intact. The carotid bulb has a normal configuration without ulceration or narrowing. The internal carotid artery lumen is smooth without stenosis. The external carotid ar terri is intact. LEFT CAROTID: The common carotid artery is intact. The carotid bulb has a normal configuration without ulceration or narrowing. The internal carotid artery lumen is smooth without stenosis. The external carotid ar terri is intact. VERTEBRALS: No vertebral emanates directly from the arch. Patient is right vertebral dominant distally. CONCLUSION: 1. 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 Left vertebral emanates directly from the arch. 2. Otherwise, cervical vessels are all patent with no significant stenosis. Patient is slightly right vertebral dominant distally. Robbie Huggins MD on February 19, 2017 at 11:02 Board Certified Radiologist. This report was verified electronically.
[2017-02-19] MEDS: CHLORHEXIDINE 0.12% (ORAL KIT) 15 ML CUP MT SCH ×2 (11:10→20:32)
[2017-02-19] MEDS: BUMETANIDE INJ 1 MG/4 ML VIAL IV PUSH SCH ×2 (11:11→18:31)
[2017-02-19] MEDS: DOCUSATE SODIUM 100 MG CAP PO SCH ×2 (11:12→20:22)
[2017-02-19] MEDS: ASPIRIN 81 MG CHEW TAB CHEW SCH (11:12)
[2017-02-19] MEDS: LACTOBACILLUS ACIDOPHILUS TAB PO SCH ×3 (11:12→18:00)
[2017-02-19] MEDS: SENNOSIDES SYRUP 8.8 MG/5 ML CUP PO SCH ×2 (11:12→20:22)
[2017-02-19] MEDS ORDERED: METHYLNALTREXONE BROMIDE 12 MG/0.6 ML VIAL SQ ONE (11:30)
--- NOTE | 2017-02-19 11:35 | RADRPT ---
EXAM DATE/TIME: 02/19/2017 11:17 [facility] COMPARISON: CHEST SINGLE AP, February 17, 2017, 17:56. INDICATIONS : Evaluate pleural effusion. MEDICAL HISTORY : None. SURGICAL HISTORY : None. ENCOUNTER: Subsequent ACUITY: 2 weeks PAIN SCORE: Non-responsive. LOCATION: chest FINDINGS: Moderate bilateral pleural effusions are seen. ET tube is present with tip overlapping approximately 3 above the junie. NG tube is present with tip in the stomach.Bibasilar consolidation and/or den sive collapse is seen and there is mild case of pulmonary edema as well. CONCLUSION: No appreciable change in bilateral pleural effusions bibasilar consolidation and/or compressive colla pse and probable mild case of pulmonary edema. Cheyanne Reveles MD on February 19, 2017 at 11:31 Board Certified Radiologist. This report was verified electronically.
[2017-02-19] MEDS: metroNIDAZOLE 500 MG INJ 100 ML IV SCH ×3 (12:03→23:07)
--- NOTE | 2017-02-19 12:28 | HHI.NPPN ---
Subjective General Problems: Hypotension Renal Failure: Chronic, Acute Interval History Remains intubated, sedated. Renal function is worse. (Juliana Saravia) Review of Systems General General Remarks unable to obtain due to intubation/sedation (Juliana Saravia) Objective Data Data 02/18/17 02/19/17 19:00 07:00 Intake Total 1236 ml 1941 ml Output Total 730 ml 2080 ml Balance 506 ml -139 ml IV Total 389 ml 548 ml Tube Feeding 447 ml 793 ml Albumin 100 ml Other 300 ml 600 ml Output Urine Total 700 ml 2000 ml Chest Tube Drainage Total 30 ml 80 ml # Bowel Movements 0 0 Vital Signs Date Time Temp Pulse Resp B/P Pulse Ox O2 Delivery O2 Flow Rate FiO2 02/19/17 11:04 100 35 02/19/17 08:45 100 100 02/19/17 07:31 99 35 02/19/17 04:31 99 35 02/19/17 04:00 100.1 114 16 138/63 98 02/19/17 04:00 40 02/19/17 02:00 107 02/19/17 01:23 100 35 02/19/17 00:00 102 02/19/17 00:00 40 02/19/17 00:00 99.6 102 18 135/60 100 02/18/17 22:25 98 35 02/18/17 22:00 114 02/18/17 20:35 100 35 02/18/17 20:00 126 02/18/17 20:00 40 02/18/17 20:00 99.5 127 18 111/79 100 02/18/17 18:00 116 02/18/17 16:00 40 02/18/17 16:00 107 02/18/17 16:00 99.2 107 18 95/55 96 02/18/17 15:07 98 35 02/18/17 14:00 108 (Juliana Saravia) -: 02/19/17 0516 02/19/17 0516 Imaging Last 72 hours Impressions Neck Magnetic Resonance Angiography 02/19/17 0000 Signed Impressions: Service Date/Time: Sunday, February 19, 2017 09:18 - CONCLUSION: 1. 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 Left vertebral emanates directly from the arch. 2. Otherwise, cervical vessels are all patent with no significant stenosis. Patient is slightly right vertebral dominant distally. Robbie Huggins MD Head Magnetic Resonance Angiography 02/19/17 0000 Signed Impressions: Service Date/Time: Sunday, February 19, 2017 09:18 - CONCLUSION: 1. 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 Intracranial vessels are otherwise patent. 2. No aneurysmal disease. 3. Anatomic variant of the [place] as above. Patient is right vertebral dominant. Robbie Huggins MD Chest X-Ray 02/19/17 0000 Signed Impressions: Service Date/Time: Sunday, February 19, 2017 11:17 - CONCLUSION: No appreciable change in bilateral pleural effusions bibasilar consolidation and/or compressive collapse and probable mild case of pulmonary edema. Cheyanne Reveles MD Chest X-Ray 02/17/17 0600 Signed Impressions: Service Date/Time: Friday, February 17, 2017 03:54 - CONCLUSION: 1. Bilateral lower lobe atelectasis versus pneumonia. Bilateral effusions. There has been no significant change when compared to the prior exam. Jorge Luis Pritchard MD Chest X-Ray 02/17/17 0000 Signed Impressions: Service Date/Time: Friday, February 17, 2017 17:56 - CONCLUSION: 1. Small caliber right chest tube present without significant pneumothorax. Basilar airspace disease slightly improved on right since exam from earlier today. Clarence Gross MD Tubes & Lines: [place] Tubes & Lines Comment pig tail drain, chest tube R Drip Comment fentanyl, propofol (Juliana Saravia) Physical Exam General Appearance: No Acute Distress, Sleeping, Malnourished Appearance Remarks frail, elderly AAM intubated/sedated (Juliana Saravia BRhea CLIPPER OPERATOR) Eyes Eye Exam: Pupils Equal (Juliana Saravia CLIPPER OPERATOR) Throat Throat Exam: Oral Mucosa Lamar & Moist Throat Remarks ETT, OG tube (Juliana Saravia BRhea CLIPPER OPERATOR) Pulmonary Resp Exam: Breath Sounds Equal, Crackles, Rhonchi Resp Remarks vented (Juliana Saravia CLIPPER OPERATOR) Cardiology CV Exam: Good Perfusion, Irregular, Tachycardia (Juliana Saravia CLIPPER OPERATOR) Gastrointestinal/Abdomen GI Exam: Non-Tender, Bowel Sounds Present GI Remarks flat, firm, (Juliana Saravia) Musculoskeletal MS Exam: Joints Intact, Atrophy, Unable to Ambulate (Juliana Saravia) Integumentary Skin Exam: Clear, Warm, Dry, Intact (Juliana Saravia) Extremeties Extremities Exam: No Edema, Pedal Pulses Palpable (Juliana Saravia) Neurologic Neuro Exam: Unresponsive, Sedated (Juliana Saravia) VTE Prophylaxis Device: SCDs (Juliana Saravia) Assessment/Plan Assessment Summary: WILLIE/Acute Renal Failure Electrolyte Assessment: Hyponatremia Problem List: (1) Acute renal failure Plan: in a patient whose baseline creatinine was 1.7 in 2006 ATN from renal hypoperfusion renal function is worse today good urine output K is normal, no evidence of acidosis sodium has improved due to worsening creatinine hold bumex, it was reduced to 1 mg BID avoid nephrotoxins, renally dose medications when appropriate daily renal panel (2) Encephalopathy Plan: multifactorial, has hx of dementia was septic and in acute hypoxic respiratory failure continue supportive measures EEG reviewed, (3) Dysphagia Plan: likely will need PEG placement due to chronic aspiration (4) Pneumonia Plan: likely aspiration related on cefepime (zithromax, flagyl, and rocephin discontinued) appreciate respiratory therapy assistance continue vent management, ween per protocol on 35% Fi02 also with effusion, pigtail catheter placed (5) Clostridium difficile infection Plan: on IV flagyl contact precautions (Juliana Saravia) Plan patient was seen and examined. Agree with above assessment and plan. (Mauro Dallas MD) Problem Qualifiers (1) Pneumonia: Qualified Code: J18.1 - Pneumonia of right lower lobe due to infectious organism Juliana Saravia Feb 19, 2017 12:28 Mauro Dallas MD Feb 20, 2017 11:22
[2017-02-19] MEDS: CEFEPIME INJ 1,000 MG in SODIUM CHLORIDE 0.9% INJ 100 ML IV SCH (13:55)
[2017-02-19] MEDS: METOCLOPRAMIDE HCL 10 MG/2 ML VIAL IV PUSH SCH ×2 (13:56→20:32)
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
[2017-02-19] MEDS: fentaNYL DRIP 250 ML IV SCH (16:48)
--- NOTE | 2017-02-19 17:23 | RADRPT ---
EXAM DATE/TIME: 02/19/2017 16:51 [facility] COMPARISON: ABDOMEN KUB ONLY, February 15, 2017, 11:42. INDICATIONS : Ileus. MEDICAL HISTORY : None. SURGICAL HISTORY : None. ENCOUNTER: Subsequent ACUITY: 1 week PAIN SCORE: Non-responsive. LOCATION: all quadrants. FINDINGS: The bowel gas is nonspecific. There are no signs of obstruction or free air for technique. No defini te calcified stones are identified for technique. IMPRESSION: Unremarkable study. KRhea Reveles MD on February 19, 2017 at 17:21 Board Certified Radiologist. This report was verified electronically.
--- NOTE | 2017-02-19 17:29 | HHI.IDPN ---
Subjective Subjective Remarks Notes reviewed D/W RN Temps better Nothing new on C/S Vomiting - feculent fluid Sedated on the vent BP ok, not on pressors Has CT placed this weekend is an 86 y/o AAM ([place] by ) with Dementia who presented with worsening mentation and diagnosed with Pneumonia and Cdiff positive diarrhea. PM records from 2006 indicate no allergies no surgeries. ID following for PNA and Cdiff present on admission. Antibiotics Cefepime IV (for worsening PNA) Flagyl IV (cdiff and anaerobic coverage) Lines Line sites with no evidence of infection Past Medical History Dementia. Allergies: Coded Allergies: No Known Allergies (Verified , 11/22/06) UNOBTAINABLE (Unverified , 02/09/17) Objective . Vital Signs Date Time Temp Pulse Resp B/P Pulse Ox O2 Delivery O2 Flow Rate FiO2 02/19/17 16:00 107 02/19/17 15:37 97 35 02/19/17 14:00 100 02/19/17 12:00 100 02/19/17 11:04 100 35 02/19/17 10:00 118 02/19/17 08:45 100 100 02/19/17 08:00 119 02/19/17 07:31 99 35 02/19/17 04:31 99 35 02/19/17 04:00 100.1 114 16 138/63 98 02/19/17 04:00 40 02/19/17 02:00 107 02/19/17 01:23 100 35 02/19/17 00:00 102 02/19/17 00:00 40 02/19/17 00:00 99.6 102 18 135/60 100 02/18/17 22:25 98 35 02/18/17 22:00 114 02/18/17 20:35 100 35 02/18/17 20:00 126 02/18/17 20:00 40 02/18/17 20:00 99.5 127 18 111/79 100 02/18/17 18:00 116 02/18/17 02/18/17 02/19/17 15:00 23:00 07:00 Intake Total 1236 ml 806 ml 1135 ml Output Total 730 ml 480 ml 1600 ml Balance 506 ml 326 ml -465 ml IV Total 389 ml 282 ml 266 ml Tube Feeding 447 ml 324 ml 469 ml Albumin 100 ml Other 300 ml 200 ml 400 ml Output Urine Total 700 ml 450 ml 1550 ml Chest Tube Drainage Total 30 ml 30 ml 50 ml # Bowel Movements 0 0 . Laboratory Tests Test 02/18/17 02/19/17 06:00 05:16 White Blood Count 16.7 TH/MM3 18.5 TH/MM3 Red Blood Count 2.88 MIL/MM3 3.13 MIL/MM3 Hemoglobin 9.2 GM/DL 9.5 GM/DL Hematocrit 25.4 % 27.5 % Mean Corpuscular Volume 88.2 FL 87.7 FL Mean Corpuscular Hemoglobin 31.9 PG 30.4 PG Mean Corpuscular Hemoglobin 36.2 % 34.6 % Concent Red Cell Distribution Width 15.6 % 15.5 % Platelet Count 334 TH/MM3 325 TH/MM3 Mean Platelet Volume 10.3 FL 9.3 FL Neutrophils (%) (Auto) 86.3 % % Lymphocytes (%) (Auto) 4.2 % % Monocytes (%) (Auto) 8.6 % % Eosinophils (%) (Auto) 0.7 % % Basophils (%) (Auto) 0.2 % % Neutrophils # (Auto) 14.4 TH/MM3 TH/MM3 Lymphocytes # (Auto) 0.7 TH/MM3 TH/MM3 Monocytes # (Auto) 1.4 TH/MM3 TH/MM3 Eosinophils # (Auto) 0.1 TH/MM3 TH/MM3 Basophils # (Auto) 0.0 TH/MM3 TH/MM3 CBC Comment AUTO DIFF AUTO DIFF Differential Comment AUTO DIFF FINAL DIFF CONFIRMED MANUAL Ovalocytes 3+ 2+ Differential Total Cells 100 Counted Neutrophils % (Manual) 82 % Band Neutrophils % 6 % Lymphocytes % 4 % Monocytes % 7 % Neutrophils # (Manual) 16.3 TH/MM3 Nucleated Red Blood Cells 1 /100 WBC Plasma Cells 1 % Platelet Estimate NORMAL Platelet Morphology Comment NORMAL Laboratory Tests Test 02/18/17 02/19/17 06:00 05:16 Sodium Level 128 MEQ/L 134 MEQ/L Potassium Level 4.3 MEQ/L 4.2 MEQ/L Chloride Level 95 MEQ/L 95 MEQ/L Carbon Dioxide Level 21.8 MEQ/L 30.6 MEQ/L Anion Gap 11 MEQ/L 8 MEQ/L Blood Urea Nitrogen 51 MG/DL 56 MG/DL Creatinine 2.48 MG/DL 2.69 MG/DL Estimat Glomerular Filtration 30 ML/MIN 27 ML/MIN Rate Random Glucose 149 MG/DL 148 MG/DL Calcium Level 7.2 MG/DL 8.1 MG/DL Protein Corrected Calcium 7.7 MG/DL Phosphorus Level 2.3 MG/DL 2.8 MG/DL Magnesium Level 1.7 MG/DL Total Protein 6.1 GM/DL Albumin 2.9 GM/DL Microbiology Date/Time Procedure Status Source Growth 02/18/17 10:38 Urine Culture - Preliminary Resulted Urine Clean Catch NO GROWTH IN 24 HOURS. Imaging Neck Magnetic Resonance Angiography 02/19/17 0000 Signed Impressions: Service Date/Time: Sunday, February 19, 2017 09:18 - CONCLUSION: 1. 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 Left vertebral emanates directly from the arch. 2. Otherwise, cervical vessels are all patent with no significant stenosis. Patient is slightly right vertebral dominant distally. Robbie Huggins MD Head Magnetic Resonance Angiography 02/19/17 0000 Signed Impressions: Service Date/Time: Sunday, February 19, 2017 09:18 - CONCLUSION: 1. 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 Intracranial vessels are otherwise patent. 2. No aneurysmal disease. 3. Anatomic variant of the [place] as above. Patient is right vertebral dominant. Robbie Huggins MD Chest X-Ray 02/19/17 0000 Signed Impressions: Service Date/Time: Sunday, February 19, 2017 11:17 - CONCLUSION: No appreciable change in bilateral pleural effusions bibasilar consolidation and/or compressive collapse and probable mild case of pulmonary edema. Cheyanne eRveles MD Chest X-Ray 02/17/17 0600 Signed Impressions: Service Date/Time: Friday, February 17, 2017 03:54 - CONCLUSION: 1. Bilateral lower lobe atelectasis versus pneumonia. Bilateral effusions. There has been no significant change when compared to the prior exam. Jorge Luis Pritchard MD Chest X-Ray 02/17/17 0000 Signed Impressions: Service Date/Time: Friday, February 17, 2017 17:56 - CONCLUSION: 1. Small caliber right chest tube present without significant pneumothorax. Basilar airspace disease slightly improved on right since exam from earlier today. Clarence Gross MD Chest X-Ray 02/16/17 0600 Signed Impressions: Service Date/Time: Thursday, February 16, 2017 04:06 - CONCLUSION: Improved aeration of the right lung compared to the prior exam. Stevie Fleming MD Chest X-Ray 02/15/17 0600 Signed Impressions: Service Date/Time: February 02:20 - CONCLUSION: Increasing density throughout the right hemithorax with moderate right-sided pleural effusion and probable right basilar atelectasis. Gregory Hoover MD Abdomen X-Ray 02/15/17 0000 Signed Impressions: Service Date/Time: February 11:42 - CONCLUSION: Nonspecific abdomen appearance. Tra Garibay MD Chest X-Ray 02/13/17 0600 Signed Impressions: Service Date/Time: Monday, February 13, 2017 04:07 - CONCLUSION: 1. Persistent right basilar consolidation and probable small pleural effusion. 2. Minimal density in the left retrocardiac region. Gregory Hoover MD Chest X-Ray 02/12/17 0000 Signed Impressions: Service Date/Time: Sunday, February 12, 2017 15:11 - CONCLUSION: Interval intubation. Diffuse right lung pleural-parenchymal opacity Tra Garibay MD Chest X-Ray 02/12/17 0000 Signed Impressions: Service Date/Time: Sunday, February 12, 2017 13:53 - CONCLUSION: Increasing right basilar opacity characteristic of a pleural effusion with associated volume loss and/or airspace consolidation. Tra Ma MD Last Impressions Chest X-Ray 02/09/17 0000 Signed Impressions: Service Date/Time: Thursday, February 09, 2017 12:49 - CONCLUSION: Increasing consolidative changes right lung base. Arya Horton MD FACR Head CT 02/07/171946 Signed Impressions: Service Date/Time: Tuesday, February 07, 2017 20:03 - CONCLUSION: No acute intracranial injury Tra Garibay MD Physical Exam GENERAL: Sedated on the vent. NAD SKIN: Warm and dry, no generalized rash. HEENT: [place] conjunctivae. No scleral icterus. No injection or drainage. ET in mouth. NECK: Trachea midline. Supple, nontender, no meningeal signs. CARDIOVASCULAR: Rregular S1S2 RESPIRATORY: Decreased BS worse on R than L GASTROINTESTINAL: Abdomen morde distended, bowel sounds are present, hypoactive. No reaction to palpation MUSCULOSKELETAL: Extremities without clubbing, cyanosis, or edema. NEUROLOGICAL: Sedated PSYCH: Unable to assess LINE: PIV with no evidence of infection Assessment & Plan Remarks IMPRESSION Respiratory failure, due to worsening pneumonia, likely due to recurrent aspiration Has R effusion, has CT in place Pneumonia present on admission: likely aspiration in setting of dementia. Cdiff positive diarrhea Ongoing aspiration. Dementia Acute metabolic encephalopathy Persistent fevers: Concomitant antibiotics for Pneumonia ppting Cdiff, ongoing aspiration - temps better. Renal insufficiency, better Vomiting RECOMMENDATION Continue Cefepime Continue flagyl, currently being given IV due to aspiration problem - for C diff and anaerobic coverage Follow temps Monitor progress To get CT A/P D/W Tricia Titus MD Feb 19, 2017 17:29
--- NOTE | 2017-02-19 17:57 | RADRPT ---
EXAM DATE/TIME: 02/19/2017 17:42 [facility] COMPARISON: CT ABDOMEN & PELVIS W/O CONTRAST, February 16, 2017, 13:26. CT THORAX W/O CONTRAST, February 16, 2017, 13: 26. INDICATIONS : Abdominal distention. ORAL CONTRAST: Prescribed oral contrast ingested. RADIATION DOSE: 9.25 CTDIvol (mGy) MEDICAL HISTORY : Sepsis. Pneumonia. SURGICAL HISTORY : Chest tube placement. ENCOUNTER: Subsequent ACUITY: 3 days PAIN SCALE: Non-responsive LOCATION: Bilateral lower quadrant TECHNIQUE: Volumetric scanning of the abdomen and pelvis was performed. Using automated exposure control and ad justment of the mA and/or kV according to patient size, radiation dose was kept as low as reasonably achievable to obtain optimal diagnostic quality images. FINDINGS: Abdomen CT: The liver, spleen, pancreas, right kidney, adrenals are unremarkable. The left kidney is in the pelvi s and appears intact and unchanged. There is no evidence for any appreciable pathological adenopathy, free fluid, or bowel obstruction. Right chest tube is in place. Bilateral pleural effusions and dens e consolidation of both lower lobes are seen. There is a tiny pericardial effusion and probable tiny subcentimeter cyst in the hepatic dome. There is old fracture of right L1 and left L3 transverse proc esses. Chronic vascular calcifications are seen most likely due to the atherosclerotic changes involv ing the aorta, and iliac arteries without any significant aneurysmal dilatations for technique. There is diffuse anasarca. Pelvic CT: There is no evidence for mass, abscess formation, or any significant adenopathy within the pelvis. Th ere are degenerative changes and possible disc bulge involving lower lumbosacral spine mainly at L4-5 and L5-S1 not adequately characterized. IMPRESSION: Since the prior study from 3 days ago the right pleural effusion is smaller, otherwis e not significantly changed. Cheyanne Reveles MD on February 19, 2017 at 17:49 Board Certified Radiologist. This report was verified electronically.
[2017-02-19] MEDS: SODIUM CHLOR 0.9% 1000 ML INJ 1,000 ML IV SCH (18:31)
[2017-02-20] VITALS (20 sets, daily range): BP systolic 89–128; BP diastolic 50–78; PULSE 103–120; RESP 16; TEMP 98–100.2; O2SAT 93–100
[2017-02-20] MEDS: ACETAMINOPHEN 500 MG CPLT PO PRN (01:46)
[2017-02-20] MEDS: RESP: ALBUTEROL 2.5 MG/IPRATROPIUM 0.5 MG NEB (SCH) INH ×4 (03:20→19:17)
[2017-02-20] MEDS: METOPROLOL TARTRATE 5 MG/5 ML VIAL IV PUSH SCH ×5 (05:00→22:06)
[2017-02-20 05:17] LABS: AUTOMATED NEUTROPHIL # 11.4 TH/MM3 (1.8-7.7); BASOPHIL # 0.2 TH/MM3 (0-0.2); BASOPHIL % 1.1 % (0.0-2.0); EOSINOPHIL % 0.2 % (0.0-4.0); HEMATOCRIT 26.8 % (39.0-51.0); HEMO FLAGS DIFF FINAL; LYMPH % 6.5 % (9.0-44.0); LYMPHOCYTE # 0.9 TH/MM3 (1.0-4.8); MEAN CELL VOLUME 87.1 FL (80.0-100.0); MEAN CORPUSCULAR HGB CONC 34.5 % (32.0-36.0); MONO % 12.1 % (0.0-8.0); NEUT % 80.1 % (16.0-70.0); PLATELET COUNT 395 TH/MM3 (150-450); RED BLOOD COUNT 3.08 MIL/MM3 (4.50-5.90); RED CELL DISTRIBUTION WIDTH 15.4 % (11.6-17.2); WHITE BLOOD COUNT 14.2 TH/MM3 (4.0-11.0)
[2017-02-20 05:37] LABS: ALT (GPT) 21 U/L (12-78); ANION GAP 10 MEQ/L (5-15); AST (GOT) 56 U/L (15-37); BICARBONATE 29.9 MEQ/L (21.0-32.0); BLOOD UREA NITROGEN 55 MG/DL (7-18); CHLORIDE 97 MEQ/L (98-107); GLOMERULAR FILTRATION RATE 32 ML/MIN (>89); MAGNESIUM 1.9 MG/DL (1.5-2.5); POTASSIUM 3.8 MEQ/L (3.5-5.1); SODIUM (NA) 137 MEQ/L (136-145)
[2017-02-20] MEDS: SODIUM CHLOR 0.9% 1000 ML INJ 1,000 ML IV SCH ×2 (05:38→17:21)
[2017-02-20] MEDS: INSULIN NovoLIN REGULAR SUPPLEMENTAL SCALE SQ SCH ×4 (05:39→23:15)
[2017-02-20] MEDS: ARTIFICIAL TEARS OPTH SOLN 15 ML BTL EACH EYE SCH ×3 (05:39→20:45)
[2017-02-20] MEDS: METOCLOPRAMIDE HCL 10 MG/2 ML VIAL IV PUSH SCH ×3 (05:39→20:45)
[2017-02-20 05:40] LABS: ALKALINE PHOSPHATASE 87 U/L (45-117); TOTAL BILIRUBIN ADULT 1.3 MG/DL (0.2-1.0)
[2017-02-20] MEDS: FREE WATER G-TUBE SCH ×4 (05:40→23:14)
--- NOTE | 2017-02-20 05:55 | MB ---
cc: YUMIKO JO M.D. DATE OF CONSULTATION 02/19/2017 REASON FOR CONSULTATION Frontal stroke and microscopic hemorrhages. HISTORY OF PRESENT ILLNESS Mr. Morgan is an 86-year-old man who has history of dementia who came to the hospital due to unsteady gait with falling. He has also been having fevers felt to be due to sepsis and infiltrate right base. He has had a decrease in mental status. He had an MRI scan of the brain performed on 02/16 which showed atrophy as well as very small punctate acute strokes and bilateral frontal white matter and also very small microscopic hemorrhages in the cerebral hemispheres as well as cerebellum. His admission CT scan of the brain on 02/07 was unremarkable. NEUROLOGIC EXAMINATION Blood pressure is 138/63, pulse is 118. Higher cortical function: He is sedated, nonresponsive. Cranial nerves: Pupils are 2-mm, sluggishly reactive. The extraocular movements are not present with doll's eyes maneuver. On motor exam he has no spontaneous limb movement, no posture, no focal deficits, no withdrawal to painful stimuli. LABORATORY DATA White count 18,500, hemoglobin 9.5, hematocrit 27.5%, platelet count 325,000. Sodium is 134, potassium 4.2, chloride 95, CO2 30.6, the BUN is 56, creatinine 2.69. GFR is 27. IMPRESSION Multiple bilateral small strokes with some small amount of hemorrhage. I suspect that this may be cardioembolic given his history of atrial fibrillation. He did have an MR angiogram of the brain done showing high-grade stenosis of the P2 segment left [employer], otherwise unremarkable. MRA of the neck was also obtained showing an anatomic variant of the aortic arch with bovine configuration, no high-grade stenosis was identified. RECOMMENDATIONS At the present time he is not a candidate for anticoagulation because of the microscopic hemorrhages. Continue the aspirin. Also obtain an echocardiogram. ADDENDUM We will also order an echocardiogram to rule out any sign of valve vegetation or SBE. If this is unremarkable, consider the possibility of CRIS for further evaluation. MD SULEIMAN Marcos/MANE /5:35 PM /8:51 AM
[2017-02-20] MEDS: DOCUSATE SODIUM 100 MG CAP PO SCH ×2 (08:43→20:45)
[2017-02-20] MEDS: metroNIDAZOLE 500 MG INJ 100 ML IV SCH ×3 (08:43→23:14)
[2017-02-20] MEDS: LACTOBACILLUS ACIDOPHILUS TAB PO SCH ×3 (08:43→17:21)
[2017-02-20] MEDS: ASPIRIN 81 MG CHEW TAB CHEW SCH (08:43)
[2017-02-20] MEDS: BUMETANIDE INJ 1 MG/4 ML VIAL IV PUSH SCH (08:47)
[2017-02-20] MEDS: CHLORHEXIDINE 0.12% (ORAL KIT) 15 ML CUP MT SCH ×2 (08:47→20:44)
[2017-02-20] MEDS: SENNOSIDES SYRUP 8.8 MG/5 ML CUP PO SCH ×2 (08:47→20:45)
--- NOTE | 2017-02-20 11:01 | HHI.NPPN ---
Subjective General Problems: Hypotension Renal Failure: Chronic, Acute Interval History Tachycardic, on IVF. He is having stool like output from OG tube. (Juliana Saravia) Review of Systems General General Remarks unable to obtain due to intubation/sedation (Juliana Saravia) Objective Data Data 02/19/17 02/20/17 19:00 07:00 Intake Total 515 ml 1275 ml Output Total 2475 ml Balance 515 ml -1200 ml Intake Oral 0 ml IV Total 292 ml 1275 ml Tube Feeding 223 ml 0 ml Output Urine Total 1875 ml Gastric Drainage Total 500 ml Chest Tube Drainage Total 100 ml # Bowel Movements 1 Vital Signs Date Time Temp Pulse Resp B/P Pulse Ox O2 Delivery O2 Flow Rate FiO2 02/20/17 10:00 117 02/20/17 08:00 109 02/20/17 08:00 35 02/20/17 08:00 100.2 109 16 128/78 97 02/20/17 07:40 96 35 02/20/17 06:00 103 02/20/17 04:21 95 35 02/20/17 04:00 35 02/20/17 04:00 98.8 115 16 106/50 95 02/20/17 04:00 115 02/20/17 02:12 95 35 02/20/17 02:00 108 02/20/17 00:05 99 35 02/20/17 00:00 98.0 104 16 89/52 96 02/20/17 00:00 35 02/20/17 00:00 104 02/19/17 22:00 109 02/19/17 20:03 98 35 02/19/17 20:00 100 02/19/17 20:00 35 02/19/17 20:00 98.8 100 16 127/66 99 02/19/17 18:00 109 02/19/17 17:35 100 100 02/19/17 16:00 35 02/19/17 16:00 100.0 107 17 113/57 96 02/19/17 16:00 107 02/19/17 15:37 97 35 02/19/17 14:00 100 02/19/17 12:00 100.7 100 16 94 02/19/17 12:00 35 02/19/17 12:00 100 02/19/17 11:04 100 35 (Juliana Saravia) -: 02/20/17 0416 02/20/17 0416 Tubes & Lines: [place] Tubes & Lines Comment pig tail drain, chest tube R Drip Comment fentanyl, propofol (Juliana Saravia) Physical Exam General Appearance: No Acute Distress, Sleeping, Malnourished Appearance Remarks frail, elderly AAM intubated/sedated (Juliana Saravia) Eyes Eye Exam: Pupils Equal (Juliana Saravia) Throat Throat Exam: Oral Mucosa [place] & Moist Throat Remarks ETT, OG tube (Juliana Saravai) Pulmonary Resp Exam: Breath Sounds Equal, Crackles, Rhonchi Resp Remarks vented (Juliana Saravia) Cardiology CV Exam: Good Perfusion, Irregular, Tachycardia (Juliana Saravia) Gastrointestinal/Abdomen GI Exam: Non-Tender, Bowel Sounds Present GI Remarks flat, firm, (Juliana Saravia) Musculoskeletal MS Exam: Joints Intact, Atrophy, Unable to Ambulate (Juliana Saravia) Integumentary Skin Exam: Clear, Warm, Dry, Intact (Juliana Saravia) Extremeties Extremities Exam: No Edema, Pedal Pulses Palpable (Juliana Saravia) Neurologic Neuro Exam: Unresponsive, Sedated (Juliana Saravia) VTE Prophylaxis Device: SCDs (Juliana Saravia) Assessment/Plan Assessment Summary: WILLIE/Acute Renal Failure Electrolyte Assessment: Hyponatremia Problem List: (1) Acute renal failure Plan: in a patient whose baseline creatinine was 1.7 in 2006 ATN from renal hypoperfusion renal function is better. 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 Agree with above assessment and plan. Abdomen is distended. NG tube suction. On IVF. Monitor renal function. (Mauro Dallas MD ) Problem Qualifiers (1) Pneumonia: Qualified Code: J18.1 - Pneumonia of right lower lobe due to infectious organism Juliana Saravia Feb 20, 2017 11:00 Mauro Dallas MD Feb 21, 2017 09:34
[2017-02-20] MEDS: CEFEPIME INJ 1,000 MG in SODIUM CHLORIDE 0.9% INJ 100 ML IV SCH (13:04)
--- NOTE | 2017-02-20 13:18 | HHI.CCPN ---
Subjective Remarks/Hospital Course Hospital Course: This is a 86yM who presented from home with altered mental status and end-stage dementia. His hospital course has been complicated by C. Diff and pneumonia for which he is on appropriate therapy. He has been noted to have [id number] aspiration during this hospital stay and has been NPO. Today, a rapid response was called for acute respiratory distress and hypoxia. I was called by Dr. Velez at the rapid response. He believe this is an aspiration event given the patient's clinical history. I immediately went and evaluated the patient. He is labored and in distress. his spo2 is 93% on non-rebreather. He is also in what appears to be new-onset atrial fibrillation with RVR and a HR 160s. Brief review of the pertinent laboratory data demonstrate worsening acute kidney injury, worsening anion-gap metabolic acidosis. Critical care medicine is consulted to evaluate and manage his severe respiratory distress and afib RVR. Unfortunately, the patient is obtunded and cannot provide any additional history. 02/13: no clinical improvements. remains in multiorgan system failure. diltiazem drip weaned to off, but remains on phenylephrine. talked with nephrology who feel clinically, despite some element of JVD, that patient is clinically intravascularly hypovolemic and they recommend gentle ivf hydration, which I am ok with as a trial. mental status poor. kidney injury persists. palliative involved. apparently daughter is not health care surrogate legally, but has been making decisions in the outpatient setting. multiple disagreements within the family. appreciate palliative involvement. 02/14: Renal function continues to worsen and today 57/4.1. D/w Nephrology. If family wants everything done, will need to proceed with HD. Tmax 101.1. ID following 02/15: Remains critically ill, did not tolerate brief CPAP trial. CXR shows mod to large R pl effusion. MAXIMUM TEMPERATURE 100.5. Creatinine slightly improved with urine output more than 1.4 L 02/16: Patient remains intubated, lightly sedated.. Did not tolerate C-peptide yesterday due to tachypnea. CT of the chest shows moderately large right effusion plan for thoracentesis 02/17: Tmax 100.7. No bowel movement since 02/12. On sedation vacation withdrawals but does not follow commands. Tolerating tube feeds at goal. 4/16: Afebrile. One bowel movement overnight. Tolerating tube feeding. Placement of 10 [place] pigtail catheter with 600 cc likely transudative effusion. Tachycardic this AM. 02/19: Currently down for CT abdomen/pelvis with distended abdomen. Also MRA brain/neck with acute/subacute bifrontal CVA. Neurology consult pending. Will likely need tracheostomy. Subjective: 02/20: Noted emesis last night [address] abdomen/pelvis unremarkable. Kidneys is moderate gastric output. Started on Reglan. Positive BM. Objective Vital Signs Date Time Temp Pulse Resp B/P Pulse Ox O2 Delivery O2 Flow Rate FiO2 02/20/17 12:05 100 35 02/20/17 10:00 117 02/20/17 08:00 100.2 16 128/78 Intake and Output 02/19/17 02/19/17 02/20/17 08:00 16:00 00:00 Intake Total 1135 ml 515 ml 610 ml Output Total 1600 ml 1750 ml Balance -465 ml 515 ml -1140 ml Result Diagram: 02/20/17 0416 02/20/17 0416 Other Results Microbiology Date/Time Procedure Status Source Growth 02/18/17 10:38 Urine Culture - Final Complete Urine Clean Catch NO GROWTH IN 48 HOURS. 02/15/17 15:05 Aerobic Blood Culture - Final Complete Blood Peripheral NO GROWTH IN 5 DAYS 02/15/17 15:05 Anaerobic Blood Culture - Final Complete Blood Peripheral QNS - SEE AEROBE REPORT Imaging Last Impressions Neck Magnetic Resonance Angiography 02/19/17 0000 Signed Impressions: Service Date/Time: Sunday, February 19, 2017 09:18 - CONCLUSION: 1. 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 Left vertebral emanates directly from the arch. 2. Otherwise, cervical vessels are all patent with no significant stenosis. Patient is slightly right vertebral dominant distally. Robbie Huggins MD Head Magnetic Resonance Angiography 02/19/17 0000 Signed Impressions: Service Date/Time: Sunday, February 19, 2017 09:18 - CONCLUSION: 1. 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 Intracranial vessels are otherwise patent. 2. No aneurysmal disease. 3. Anatomic variant of the [place] as above. Patient is right vertebral dominant. Robbie Huggins MD Chest X-Ray 02/19/17 0000 Signed Impressions: Service Date/Time: Sunday, February 19, 2017 11:17 - CONCLUSION: No appreciable change in bilateral pleural effusions bibasilar consolidation and/or compressive collapse and probable mild case of pulmonary edema. Cheyanne Reveles MD Chest CT 02/16/17 0000 Signed Impressions: Service Date/Time: Thursday, February 16, 2017 13:26 - CONCLUSION: 1. Moderate to large right and small left pleural effusion with associated compressive atelectasis. There additionally is airspace consolidation in the right lower lobe. 2. Small pericardial effusion. 3. There are 2 nodules in the right upper lobe measuring 5 mm and 10 mm. Suggest attention to these at followup imaging. Tra Ma MD Brain MRI 02/16/17 Signed Impressions: Service Date/Time: Thursday, February 16, 2017 13:44 - CONCLUSION: Atrophy and extensive white matter disease as well as micro-bleeds the route the cerebral hemispheres and cerebellum. Punctate foci of acute infarction are suspected within the bilateral frontal white matter as described above. Scott Garcia MD Abdomen/Pelvis CT 02/16/17 0000 Signed Impressions: Service Date/Time: Thursday, February 16, 2017 13:26 - CONCLUSION: 1. Diffuse body wall edema, bilateral effusions, pericardial effusion and lower lobe atelectasis and consolidation. 2. Atherosclerosis. Scott Garcia MD Abdomen X-Ray 02/15/17 Signed Impressions: Service Date/Time: February 11:42 - CONCLUSION: Nonspecific abdomen appearance. Tra Garibay MD Head CT 02/07/171946 Signed Impressions: Service Date/Time: Tuesday, February 07, 2017 20:03 - CONCLUSION: No acute intracranial injury Tra Garibay MD Objective Remarks GENERAL: 86-year-old [place] male, critically ill currently orotracheally intubated SKIN: Warm and dry. No rash HEAD: Atraumatic. Normocephalic. EYES: Pupils equal and round about 3-4 mm bilaterally and reactive. No scleral icterus. No injection or drainage. ENT: No nasal bleeding or discharge. Mucous membranes pink and moist. Oropharynx without erythema NECK: Trachea midline. Minimal JVD. CARDIOVASCULAR: Tachycardic, RR. S1, S2. No S4. No murmur appreciated RESPIRATORY: Improved breath sounds/aeration throughout the right lung field. Few crackles in bases bilaterally. No wheeze GASTROINTESTINAL: Abdomen protuberant. Nontender. Hypoactive bowel sounds are appreciated. MUSCULOSKELETAL: Extremities with trace to 1+ lower extremity pitting edema. No obvious deformities. NEUROLOGICAL: Arousable on sedation vacation but not following commands. Positive gag. Positive corneal reflex. Moves all 4 extremity spontaneously and withdrawal Procedures None A/P Assessment and Plan Neuro/Psych: Acute metabolic encephalopathy End-stage dementia Right [employer] high-grade stenosis --Currently On propofol drip at 12 micro-grams per kilogram per minute and Fentanyl drip at 50 g an hour gtt for sedation and analgesia while intubated Goal of RASS -2 Daily sedation vacation -- CT head 02/07 negative for acute disease MRI brain 02/16 revealed increased fluid in the bilateral centrum semi-ovale and PV WM, remote basal ganglia infarcts bilaterally and PV WM. Punctuate micro- bleeds throughout. MRA brain 02/19 revealed left P2 segment [employer] high-grade stenosis MRI neck - 02/19 - Anatomical Variant Cir., [place]. Left vertebral takes off from aortic arch. Neurology consult Dr. Avalos appreciated. 2-D echo results pending. CRIS if negative rule out embolic event Not a Phrenic regulation due to micro-hemorrhages. Currently on aspirin 81 mg daily EEG 02/16 reveals moderate to severe encephalopathy. No epileptiform activity. Respiratory: Acute hypoxic respiratory failure Aspiration pneumonitis Fkvnb-[id number]-[id number] aspiration Mod to large R effusion/small left pleural effusion Right upper lobe pulmonary nodules 5 and 10 mm. Recommend follow up CT in 3-6 months [facility] 16/1.11/11/34 -- vent bundle Bronchodilator therapy every 6 hours with albuterol every 2 hours for breakthrough -- HOB at 30 degrees -- wean fiO2 for goal spo2 > 92% CT chest 02/16 revealed moderate to large right pleural effusion and atelectasis/ small left pleural effusion. Status post placement of pigtail catheter right effusion 03/19. -40 cm. -110 SS overnight. Will need tracheostomy Cardiovascular: Atrial Fibrillation with Rapid Ventricular Response- resolved. Sinus tachycardia Distributive shock Acute systolic heart failure Small pericardial effusion Echocardiogram 02/12 revealed EF 30-35%. Moderate TR. MARIA 53 mmHg. -- Off Cardizem drip for HR control Home medications metoprolol 50 mg daily, losartan 100 mg daily and hydralazine 50 mg twice a day currently on hold. -- Start low-dose Lopressor 5 mill grams IV every 6 with holding parameters Continue NSH 84 cc an hour while nothing by mouth Renal: Acute Kidney Injury secondary to ATN secondary to hypoperfusion Bumex 1 mg IV q12 per nephrology as been discontinued Nephrology following. Renal function improving cr 2.4 yesterday. On free water 100 every 6 -- [place] FEN/GI: Acute protein calorie malnutrition- severe C.Difficile Colitis Diarrhea Acute on chronic Aspiration Constipation TF with Jevity 1.5 goal 60 cc an hour currently on hold secondary to Colace twice a day/Senokot twice a day, 1 dose of MiraLAX and lactulose today. [address] today. CT abdomen/pelvis revealed left kidney protrusion, bilateral pleural effusions and small pericardial effusion. Significant edema to her body cavity. Repeat CT abdomen/pelvis with distended abdomen. Revealed right L1/left L3 transverse process fracture. Anasarca. Heme/ID: C. Difficile Colitis Sepsis acute on chronic aspiration with pneumonitis Leukocytosis ID/Dr. Garcia following ABX per ID Continue Cefepime, Continue Flagyl, for aspiration and C diff. Azithromycin discontinued 02/16 Pertinent cultures 02/07 - blood cultures 2 - no growth 02/08 - stool -- C. difficile positive 02/09 - blood cultures 2 - no growth 02/12 - urine - no growth 02/13 - sputum - no growth 02/15 - blood cultures 2 - no growth 02/18 - urine - no growth Endocrine: Hyperglycemia of critical illness -- SSI, q6h, med scale Prophylaxis: SCDs, SQH to be held with micro-hemorrhages. Resume when clinically indicated, Protonix Critical Care: The total critical care time was 35 minutes. Time to perform other separately billable procedures was not included in the critical care time. Gerry Mike MD Feb 20, 2017 13:18
--- NOTE | 2017-02-20 14:27 | HHI.IDPN ---
Subjective Subjective Remarks Notes reviewed Temps ok On the vent Had vomiting yesterday CT A/P ok Nothing new on C/S Sedated on the vent BP ok, not on pressors Has CT placed this weekend WBC lower today is an 86 y/o AAM ([facility] by ) with Dementia who presented with worsening mentation and diagnosed with Pneumonia and Cdiff positive diarrhea. PM records from 2006 indicate no allergies no surgeries. ID following for PNA and Cdiff present on admission. Antibiotics Cefepime IV (for worsening PNA) Flagyl IV (cdiff and anaerobic coverage) Lines Line sites with no evidence of infection Past Medical History Dementia. Allergies: Coded Allergies: No Known Allergies (Verified , 11/22/06) UNOBTAINABLE (Unverified , 02/09/17) Objective . Vital Signs Date Time Temp Pulse Resp B/P Pulse Ox O2 Delivery O2 Flow Rate FiO2 02/20/17 14:00 120 02/20/17 12:05 100 35 02/20/17 12:00 110 02/20/17 10:00 117 02/20/17 08:00 109 02/20/17 08:00 35 02/20/17 08:00 100.2 109 16 128/78 97 02/20/17 07:40 96 35 02/20/17 06:00 103 02/20/17 04:21 95 35 02/20/17 04:00 35 02/20/17 04:00 98.8 115 16 106/50 95 02/20/17 04:00 115 02/20/17 02:12 95 35 02/20/17 02:00 108 02/20/17 00:05 99 35 02/20/17 00:00 98.0 104 16 89/52 96 02/20/17 00:00 35 02/20/17 00:00 104 02/19/17 22:00 109 02/19/17 20:03 98 35 02/19/17 20:00 100 02/19/17 20:00 35 02/19/17 20:00 98.8 100 16 127/66 99 02/19/17 18:00 109 02/19/17 17:35 100 100 02/19/17 16:00 35 02/19/17 16:00 100.0 107 17 113/57 96 02/19/17 16:00 107 02/19/17 15:37 97 35 02/19/17 02/19/17 02/20/17 15:00 23:00 07:00 Intake Total 515 ml 610 ml 665 ml Output Total 1750 ml 725 ml Balance 515 ml -1140 ml -60 ml Intake Oral 0 ml 0 ml IV Total 292 ml 610 ml 665 ml Tube Feeding 223 ml 0 ml 0 ml Output Urine Total 1400 ml 475 ml Gastric Drainage Total 300 ml 200 ml Chest Tube Drainage Total 50 ml 50 ml # Bowel Movements 0 1 . Laboratory Tests Test 02/19/17 02/20/17 05:16 04:16 White Blood Count 18.5 TH/MM3 14.2 TH/MM3 Red Blood Count 3.13 MIL/MM3 3.08 MIL/MM3 Hemoglobin 9.5 GM/DL 9.2 GM/DL Hematocrit 27.5 % 26.8 % Mean Corpuscular Volume 87.7 FL 87.1 FL Mean Corpuscular Hemoglobin 30.4 PG 30.0 PG Mean Corpuscular Hemoglobin 34.6 % 34.5 % Concent Red Cell Distribution Width 15.5 % 15.4 % Platelet Count 325 TH/MM3 395 TH/MM3 Mean Platelet Volume 9.3 FL 10.0 FL Neutrophils (%) (Auto) % 80.1 % Lymphocytes (%) (Auto) % 6.5 % Monocytes (%) (Auto) % 12.1 % Eosinophils (%) (Auto) % 0.2 % Basophils (%) (Auto) % 1.1 % Neutrophils # (Auto) TH/MM3 11.4 TH/MM3 Lymphocytes # (Auto) TH/MM3 0.9 TH/MM3 Monocytes # (Auto) TH/MM3 1.7 TH/MM3 Eosinophils # (Auto) TH/MM3 0.0 TH/MM3 Basophils # (Auto) TH/MM3 0.2 TH/MM3 CBC Comment AUTO DIFF DIFF FINAL Differential Total Cells 100 Counted Neutrophils % (Manual) 82 % Band Neutrophils % 6 % Lymphocytes % 4 % Monocytes % 7 % Neutrophils # (Manual) 16.3 TH/MM3 Nucleated Red Blood Cells 1 /100 WBC Differential Comment FINAL DIFF MANUAL Plasma Cells 1 % Platelet Estimate NORMAL Platelet Morphology Comment NORMAL Ovalocytes 2+ Laboratory Tests Test 02/19/17 02/20/17 05:16 04:16 Sodium Level 134 MEQ/L 137 MEQ/L Potassium Level 4.2 MEQ/L 3.8 MEQ/L Chloride Level 95 MEQ/L 97 MEQ/L Carbon Dioxide Level 30.6 MEQ/L 29.9 MEQ/L Anion Gap 8 MEQ/L 10 MEQ/L Blood Urea Nitrogen 56 MG/DL 55 MG/DL Creatinine 2.69 MG/DL 2.37 MG/DL Estimat Glomerular Filtration 27 ML/MIN 32 ML/MIN Rate Random Glucose 148 MG/DL 112 MG/DL Calcium Level 8.1 MG/DL 8.0 MG/DL Phosphorus Level 2.8 MG/DL 2.7 MG/DL Albumin 2.9 GM/DL 2.6 GM/DL Magnesium Level 1.9 MG/DL Total Bilirubin 1.3 MG/DL Aspartate Amino Transf 56 U/L (AST/SGOT) Alanine Aminotransferase 21 U/L (ALT/SGPT) Alkaline Phosphatase 87 U/L Total Protein 6.7 GM/DL Microbiology Date/Time Procedure Status Source Growth 02/18/17 10:38 Urine Culture - Final Complete Urine Clean Catch NO GROWTH IN 48 HOURS. Imaging Neck Magnetic Resonance Angiography 02/19/17 0000 Signed Impressions: Service Date/Time: Sunday, February 19, 2017 09:18 - CONCLUSION: 1. 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 Left vertebral emanates directly from the arch. 2. Otherwise, cervical vessels are all patent with no significant stenosis. Patient is slightly right vertebral dominant distally. Robbie Huggins MD Head Magnetic Resonance Angiography 02/19/17 0000 Signed Impressions: Service Date/Time: Sunday, February 19, 2017 09:18 - CONCLUSION: 1. 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 Intracranial vessels are otherwise patent. 2. No aneurysmal disease. 3. Anatomic variant of the [place] as above. Patient is right vertebral dominant. Robbie Huggins MD Chest X-Ray 02/19/17 0000 Signed Impressions: Service Date/Time: Sunday, February 19, 2017 11:17 - CONCLUSION: No appreciable change in bilateral pleural effusions bibasilar consolidation and/or compressive collapse and probable mild case of pulmonary edema. Cheyanne Reveles MD Neck Magnetic Resonance Angiography 02/19/17 0000 Signed Impressions: Service Date/Time: Sunday, February 19, 2017 09:18 - CONCLUSION: 1. 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 Left vertebral emanates directly from the arch. 2. Otherwise, cervical vessels are all patent with no significant stenosis. Patient is slightly right vertebral dominant distally. Robbie Huggins MD Head Magnetic Resonance Angiography 02/19/17 0000 Signed Impressions: Service Date/Time: Sunday, February 19, 2017 09:18 - CONCLUSION: 1. 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 Intracranial vessels are otherwise patent. 2. No aneurysmal disease. 3. Anatomic variant of the [place] as above. Patient is right vertebral dominant. Robbie Huggins MD Chest X-Ray 02/19/17 0000 Signed Impressions: Service Date/Time: Sunday, February 19, 2017 11:17 - CONCLUSION: No appreciable change in bilateral pleural effusions bibasilar consolidation and/or compressive collapse and probable mild case of pulmonary edema. Cheyanne Reveles MD Chest X-Ray 02/17/17 0600 Signed Impressions: Service Date/Time: Friday, February 17, 2017 03:54 - CONCLUSION: 1. Bilateral lower lobe atelectasis versus pneumonia. Bilateral effusions. There has been no significant change when compared to the prior exam. Jorge Luis Pritchard MD Chest X-Ray 02/17/17 0000 Signed Impressions: Service Date/Time: Friday, February 17, 2017 17:56 - CONCLUSION: 1. Small caliber right chest tube present without significant pneumothorax. Basilar airspace disease slightly improved on right since exam from earlier today. Clarence Gross MD Chest X-Ray 02/16/17 0600 Signed Impressions: Service Date/Time: Thursday, February 16, 2017 04:06 - CONCLUSION: Improved aeration of the right lung compared to the prior exam. Stevie Fleming MD Chest X-Ray 02/15/17 0600 Signed Impressions: Service Date/Time: February 02:20 - CONCLUSION: Increasing density throughout the right hemithorax with moderate right-sided pleural effusion and probable right basilar atelectasis. Gregory Hoover MD Abdomen X-Ray 02/15/17 0000 Signed Impressions: Service Date/Time: February 11:42 - CONCLUSION: Nonspecific abdomen appearance. Tra Garibay MD Chest X-Ray 02/13/17 0600 Signed Impressions: Service Date/Time: Monday, February 13, 2017 04:07 - CONCLUSION: 1. Persistent right basilar consolidation and probable small pleural effusion. 2. Minimal density in the left retrocardiac region. Gregory Hoover MD Chest X-Ray 02/12/17 0000 Signed Impressions: Service Date/Time: Sunday, February 12, 2017 15:11 - CONCLUSION: Interval intubation. Diffuse right lung pleural-parenchymal opacity Tra Garibay MD Chest X-Ray 02/12/17 0000 Signed Impressions: Service Date/Time: Sunday, February 12, 2017 13:53 - CONCLUSION: Increasing right basilar opacity characteristic of a pleural effusion with associated volume loss and/or airspace consolidation. Tra Ma MD Last Impressions Chest X-Ray 02/09/17 0000 Signed Impressions: Service Date/Time: Thursday, February 09, 2017 12:49 - CONCLUSION: Increasing consolidative changes right lung base. Arya Horton MD FACR Head CT 02/07/17 194 Signed Impressions: Service Date/Time: Tuesday, February 07, 2017 20:03 - CONCLUSION: No acute intracranial injury Tra Garibay MD Physical Exam GENERAL: Sedated on the vent. NAD SKIN: Warm and dry, no generalized rash. HEENT: [place] conjunctivae. No scleral icterus. No injection or drainage. ET in mouth. NECK: Trachea midline. Supple, nontender, no meningeal signs. CARDIOVASCULAR: Regular S1S2 RESPIRATORY: Decreased BS worse on R than L GASTROINTESTINAL: Abdomen distended, bowel sounds are present, hypoactive. No reaction to palpation MUSCULOSKELETAL: Extremities without clubbing, cyanosis, or edema. NEUROLOGICAL: Sedated PSYCH: Unable to assess LINE: PIV with no evidence of infection Assessment & Plan Remarks IMPRESSION Respiratory failure, due to worsening pneumonia, likely due to recurrent aspiration Has R effusion, has CT in place Pneumonia present on admission: likely aspiration in setting of dementia. C diff positive Ongoing aspiration. Dementia Acute metabolic encephalopathy Persistent fevers: Concomitant antibiotics for Pneumonia ppting Cdiff, ongoing aspiration - temps better. Renal insufficiency, better Vomiting RECOMMENDATION Continue Cefepime - if same, will stop tomorrow Continue flagyl, currently being given IV due to aspiration problem - for C diff and anaerobic coverage Follow temps Monitor progress Tricia Garcia MD Feb 20, 2017 14:27
[2017-02-20] MEDS: PROPOFOL 1000 MG/100 ML INJ 100 ML IV SCH ×2 (14:34→23:22)
--- NOTE | 2017-02-20 15:03 | EC ---
Study Study Date:02/20/2017 STUDY CONCLUSIONS SUMMARY - Left ventricle: The cavity size was normal. There was mild focal basal hypertrophy of the septum. Systolic function was moderately reduced. The estimated ejection fraction was in the range of 35% to 40%. Diffuse hypokinesis. - Mitral valve: There is a mobile denisty on the medial leaflet, approximately 2 x 4 mm. There was a vegetation. - Tricuspid valve: There is thickened leaflet's and does also appear to have a mobile density on the lateral leaflet. Mild-moderate regurgitation. - Pulmonary arteries: Systolic pressure was moderately increased. PA peak pressure: 52mm Hg (S). If LV function is below 40, please consider prescribing an ACEI or ARB or document rationale for non-use. PROCEDURE DATA STUDY STATUS: Elective. Procedure: Transthoracic echocardiography. Image quality was good. Scanning was performed from the parasternal, apical, and subcostal acoustic windows. Study completion: The patient tolerated the procedure well. Transthoracic echocardiography. M-mode, complete 2D, complete spectral Doppler, and color Doppler. Patient status: Inpatient. CARDIAC ANATOMY LEFT VENTRICLE: The cavity size was normal. There was mild focal basal hypertrophy of the septum. Systolic function was moderately reduced. The estimated ejection fraction was in the range of 35% to 40%. Diffuse hypokinesis. AORTIC VALVE: Trileaflet; normal thickness leaflets. Doppler: Transvalvular velocity was within the normal range. There was no stenosis. No regurgitation. AORTA: Aortic root: The aortic root was normal in size. MITRAL VALVE: There is a mobile denisty on the medial leaflet, approximately 2 x 4 mm. Structurally normal valve. There was a vegetation. Doppler: Transvalvular velocity was within the normal range. There was no evidence for stenosis. No regurgitation. LEFT ATRIUM: The atrium was normal in size. RIGHT VENTRICLE: The cavity size was normal. Wall thickness was normal. PULMONIC VALVE: Doppler: Transvalvular velocity was within the normal range. There was no evidence for stenosis. No regurgitation. TRICUSPID VALVE: There is thickened leaflet's and does also appear to have a mobile density on the lateral leaflet. Moderately thickened leaflets. Doppler: Transvalvular velocity was within the normal range. Mild-moderate regurgitation. PULMONARY ARTERY: The main pulmonary artery was normal-sized. Systolic pressure was moderately increased. RIGHT ATRIUM: The atrium was normal in size. PERICARDIUM: There was no pericardial effusion. SYSTEMIC VEINS: Inferior vena cava: The vessel was normal in size. BASIC MEASUREMENTS ADULT NORMAL Left ventricle LV internal dimension, ED, chordal level, *39.8 mm 43-52 PLAX LV internal dimension, ES, chordal level, 28.1 mm 23-38 PLAX Fractional shortening, chordal level, PLAX *29 % >29 LV posterior wall thickness, ED 9.42 mm IVS/LVPW ratio, ED *1.48 <1.3 Ventricular septum Septal thickness, ED 13.9 mm Aortic valve Leaflet separation 22 mm 15-26 Right ventricle RV internal dimension, ED, PLAX 30 mm 19-38 BASIC MEASUREMENTS ADULT NORMAL Aortic valve Leaflet separation 22 mm 15-26 Aorta Root diameter, ED 36 mm 20-37 DOPPLER MEASUREMENTS ADULT NORMAL Main pulmonary artery Pressure, S *52 mm Hg =30 Mitral valve Peak E-wave velocity 61.7 cm/s Peak A-wave velocity 65.2 cm/s Peak E/A ratio 0.9 Tricuspid valve Regurgitant peak velocity 267 cm/s Peak RV-RA gradient, S 29 mm Hg Maximal regurgitant velocity 267 cm/s Systemic veins Estimated CVP 10 mm Hg Right ventricle RV pressure, S *52 mm Hg <30 LEGEND: Mean values are shown as u=mean value. Asterisk (*) crowley values outside specified normal range. Prepared and signed by Luiza Gaines [id number]
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
--- NOTE | 2017-02-20 20:23 | HHI.PR ---
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 Would not recommend anticoagulation given the microscopic hemorrhages on MRI and the possibility of septic emboli and mycotic aneurysms which would pose a hemorrhagic risk. Diagnosis/Plan: Subjective Subjective Comments No acute events reported Active Medications Current Medications Medications (Trade) Dose Ordered Sig/Connor Route Start Time Stop Time Status Last Admin (Zofran Inj) 4 mg Q8H PRN IV PUSH 02/07/17 21:45 (Apresoline) 50 mg BID PO 02/08/17 21:00 Hold 02/10/17 21:41 (Cozaar) 100 mg DAILY PO 02/09/17 09:00 Hold 02/10/17 10:27 (Toprol Xl) 50 mg DAILY PO 02/08/17 13:00 Hold 02/10/17 10:27 (Tylenol) 500 mg Q4H PRN PO 02/08/17 13:15 02/20/17 01:46 Lactobacillus Acidophilus 1 tab 1 tab TID PO 02/09/17 13:00 02/20/17 17:21 (Flagyl 500 Mg Inj) 100 ml @ 100 mls/hr Q8H IV 02/12/17 08:00 02/20/17 16:10 Clonidine 1 patch 1 patch Q7D T-DERMAL 02/12/17 09:00 Hold 02/12/17 10:04 Cefepime HCl 1000 mg/Sodium Chloride 100 ml @ 200 mls/hr Q24H IV 02/12/17 14:00 02/20/17 13:04 (Diprivan 1000 Mg/100ml Inj) 100 ml @ 0 mls/hr TITRATE IV 02/12/17 14:30 02/20/17 14:34 (Peridex 0.12% Liq) 15 ml BID@08,20 MT 02/12/17 20:00 02/20/17 08:47 (D50w (Vial) Inj) 25 ml UNSCH PRN IV PUSH 02/12/17 14:30 02/17/17 00:10 Insulin Human Regular 1 1 Q6HR SQ 02/12/17 18:00 02/19/17 11:11 (Neosynephrine Inj/D5W 500 ml Inj) 500 ml @ 0 mls/hr TITRATE IV 02/12/17 15:00 Hold 02/14/17 19:39 (Aspirin Chew) 81 mg DAILY CHEW 02/13/17 09:00 02/20/17 08:43 Miscellaneous Information Patient in critical care unit? Ass... Q361D .XX 02/12/17 22:00 (fentaNYL DRIP) 250 ml @ 0 mls/hr TITRATE IV 02/13/17 01:45 02/19/17 16:48 (Colace) 100 mg BID PO 02/17/17 21:00 02/20/17 08:43 (Senna Liq) 8.8 mg BID PO 02/17/17 21:00 02/20/17 08:47 (Glycerin Adult Supp) 2 gm BID PRN RECTAL 02/17/17 10:15 (Tears Naturale Opth Soln) 1 drop Q8HR EACH EYE 02/17/17 14:00 02/20/17 13:03 (Free Water) 100 ml Q6HR G-TUBE 02/18/17 12:00 02/19/17 11:13 (Lopressor Inj) 5 mg Q6H IV PUSH 02/18/17 23:00 02/19/17 23:07 (Bumex Inj) 1 mg BID@09,18 IV PUSH 02/19/17 18:00 Hold 02/20/17 08:47 Metoclopramide HCl 5 mg 5 mg Q8HR IV PUSH 02/19/17 14:00 02/20/17 13:03 (NS 1000 ml Inj) 1,000 ml @ 84 mls/hr [id number] IV 02/19/17 18:00 02/20/17 17:21 Allergies Allergies Coded Allergies No Known Allergies (Verified11/22/06) UNOBTAINABLE (Unverified02/09/17) Exam I&O / VS 02/19/17 02/19/17 02/20/17 15:00 23:00 07:00 Intake Total 515 ml 610 ml 665 ml Output Total 1750 ml 725 ml Balance 515 ml -1140 ml -60 ml Intake Oral 0 ml 0 ml IV Total 292 ml 610 ml 665 ml Tube Feeding 223 ml 0 ml 0 ml Output Urine Total 1400 ml 475 ml Gastric Drainage Total 300 ml 200 ml Chest Tube Drainage Total 50 ml 50 ml # Bowel Movements 0 1 Vital Signs Date Time Temp Pulse Resp B/P Pulse Ox O2 Delivery O2 Flow Rate FiO2 02/20/17 19:18 100 35 02/20/17 18:00 110 02/20/17 16:45 100 35 02/20/17 16:00 35 02/20/17 16:00 104 02/20/17 16:00 100.1 104 16 107/69 100 02/20/17 14:00 120 02/20/17 12:05 100 35 02/20/17 12:00 110 02/20/17 12:00 99.8 110 16 101/63 100 02/20/17 12:00 35 02/20/17 10:00 117 02/20/17 08:00 109 02/20/17 08:00 35 02/20/17 08:00 100.2 109 16 128/78 97 02/20/17 07:40 96 35 02/20/17 06:00 103 02/20/17 04:21 95 35 02/20/17 04:00 35 02/20/17 04:00 98.8 115 16 106/50 95 02/20/17 04:00 115 02/20/17 02:12 95 35 02/20/17 02:00 108 02/20/17 00:05 99 35 02/20/17 00:00 98.0 104 16 89/52 96 02/20/17 00:00 35 02/20/17 00:00 104 02/19/17 22:00 109 Exam Comments very lethargic, but follows some very simple commands today--e.g 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 Pupils equal Motor--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 manager supply 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 bilaterally, no other spontaneous movement Objective Micro and Labs Laboratory Tests Test 02/20/17 04:16 White Blood Count 14.2 Red Blood Count 3.08 Hemoglobin 9.2 Hematocrit 26.8 Mean Corpuscular Volume 87.1 Mean Corpuscular Hemoglobin 30.0 Mean Corpuscular Hemoglobin 34.5 Concent Red Cell Distribution Width 15.4 Platelet Count 395 Mean Platelet Volume 10.0 Neutrophils (%) (Auto) 80.1 Lymphocytes (%) (Auto) 6.5 Monocytes (%) (Auto) 12.1 Eosinophils (%) (Auto) 0.2 Basophils (%) (Auto) 1.1 Neutrophils # (Auto) 11.4 Lymphocytes # (Auto) 0.9 Monocytes # (Auto) 1.7 Eosinophils # (Auto) 0.0 Basophils # (Auto) 0.2 CBC Comment DIFF FINAL Differential Comment Sodium Level 137 Potassium Level 3.8 Chloride Level 97 Carbon Dioxide Level 29.9 Anion Gap 10 Blood Urea Nitrogen 55 Creatinine 2.37 Estimat Glomerular Filtration 32 Rate Random Glucose 112 Calcium Level 8.0 Phosphorus Level 2.7 Magnesium Level 1.9 Total Bilirubin 1.3 Aspartate Amino Transf 56 (AST/SGOT) Alanine Aminotransferase 21 (ALT/SGPT) Alkaline Phosphatase 87 Total Protein 6.7 Albumin 2.6 Date/Time Procedure Status Source Growth 02/18/17 10:38 Urine Culture - Final Complete Urine Clean Catch NO GROWTH IN 48 HOURS. Diagnostic Tests ECHOCARDIOGRAM--LV with diffuse hypokinesis with EF 35%. THere is a small mobile density on the mitral valve--possible vegetation. Darius Avalos PhD MD Feb 20, 2017 20:23
[2017-02-20] MEDS: fentaNYL DRIP 250 ML IV SCH (22:18)
[2017-02-21] VITALS (17 sets, daily range): BP systolic 107–141; BP diastolic 61–79; PULSE 91–112; RESP 16; TEMP 97.8–99.6; O2SAT 95–100
[2017-02-21] MEDS: RESP: ALBUTEROL 2.5 MG/IPRATROPIUM 0.5 MG NEB (SCH) INH ×4 (03:15→19:24)
[2017-02-21] MEDS: METOPROLOL TARTRATE 5 MG/5 ML VIAL IV PUSH SCH ×3 (04:43→16:44)
[2017-02-21] MEDS: FREE WATER G-TUBE SCH ×3 (05:06→16:45)
[2017-02-21] MEDS: METOCLOPRAMIDE HCL 10 MG/2 ML VIAL IV PUSH SCH ×3 (05:06→20:30)
[2017-02-21] MEDS: SODIUM CHLOR 0.9% 1000 ML INJ 1,000 ML IV SCH ×2 (05:06→10:43)
[2017-02-21] MEDS: ARTIFICIAL TEARS OPTH SOLN 15 ML BTL EACH EYE SCH ×3 (05:07→20:31)
[2017-02-21] MEDS: INSULIN NovoLIN REGULAR SUPPLEMENTAL SCALE SQ SCH ×3 (05:07→18:00)
[2017-02-21 05:29] LABS: AUTOMATED NEUTROPHIL # 9.5 TH/MM3 (1.8-7.7); BASOPHIL # 0.1 TH/MM3 (0-0.2); BASOPHIL % 0.4 % (0.0-2.0); EOSINOPHIL # 0.1 TH/MM3 (0-0.4); EOSINOPHIL % 0.5 % (0.0-4.0); HEMATOCRIT 28.4 % (39.0-51.0); HEMO FLAGS DIFF FINAL; LYMPH % 7.2 % (9.0-44.0); LYMPHOCYTE # 0.9 TH/MM3 (1.0-4.8); MEAN CELL VOLUME 90.9 FL (80.0-100.0); MEAN CORPUSCULAR HEMOGLOBIN 29.4 PG (27.0-34.0); MEAN CORPUSCULAR HGB CONC 32.3 % (32.0-36.0); NEUT % 79.9 % (16.0-70.0); PLATELET COUNT 271 TH/MM3 (150-450); RED BLOOD COUNT 3.12 MIL/MM3 (4.50-5.90); RED CELL DISTRIBUTION WIDTH 15.5 % (11.6-17.2); WHITE BLOOD COUNT 11.9 TH/MM3 (4.0-11.0)
[2017-02-21 05:40] LABS: BICARBONATE 26.8 MEQ/L (21.0-32.0)
--- NOTE | 2017-02-21 06:38 | RADRPT ---
EXAM DATE/TIME: 02/21/2017 04:26 [place] COMPARISON: CHEST SINGLE AP, February 17, 2017, 17:56. CHEST SINGLE AP, February 19, 2017, 11:17. INDICATIONS : Shortness of breath. MEDICAL HISTORY : Sepsis. Pneumonia. SURGICAL HISTORY : Chest tube placement ENCOUNTER: Initial ACUITY: 4 - 6 days PAIN SCORE: Non-responsive. LOCATION: Bilateral chest FINDINGS: A single view of the chest demonstrates bilateral lower lobe areas of consolidations. The endotrachea l to nasogastric are both in good position. There is no visible pneumothorax.. The cardiomediastinal contours are unremarkable. Osseous structures are intact. CONCLUSION: Bilateral lower lobe consolidations. ET tube and NG tube in good position. Sanjay Watts MD on February 21, 2017 at 6:36 Board Certified Radiologist. This report was verified electronically.
--- NOTE | 2017-02-21 09:27 | HHI.IDPN ---
Subjective Subjective Remarks Notes reviewed Temps occ low grade On the vent Nothing new on C/S Sedated on the vent BP ok, not on pressors Has CT - serous drainage WBC continues to improve is an 86 y/o AAM ([place] by ) with Dementia who presented with worsening mentation and diagnosed with Pneumonia and Cdiff positive diarrhea. PM records from 2006 indicate no allergies no surgeries. ID following for PNA and Cdiff present on admission. Antibiotics Cefepime IV (for worsening PNA) Flagyl IV (cdiff and anaerobic coverage) Lines Line sites with no evidence of infection Past Medical History Dementia. Allergies: Coded Allergies: No Known Allergies (Verified , 11/22/06) UNOBTAINABLE (Unverified , 02/09/17) Objective . Vital Signs Date Time Temp Pulse Resp B/P Pulse Ox O2 Delivery O2 Flow Rate FiO2 02/21/17 07:44 100 35 02/21/17 06:00 110 02/21/17 04:00 98.8 112 16 111/65 100 02/21/17 04:00 112 02/21/17 04:00 35 02/21/17 03:15 100 35 02/21/17 02:00 101 02/21/17 00:00 98.0 98 16 109/61 100 02/21/17 00:00 98 02/21/17 00:00 35 02/20/17 23:18 93 35 02/20/17 22:00 113 02/20/17 20:00 35 02/20/17 20:00 109 02/20/17 20:00 99.0 109 16 116/70 100 02/20/17 19:18 100 35 02/20/17 18:00 110 02/20/17 16:45 100 35 02/20/17 16:00 35 02/20/17 16:00 104 02/20/17 16:00 100.1 104 16 107/69 100 02/20/17 14:00 120 02/20/17 12:05 100 35 02/20/17 12:00 110 02/20/17 12:00 99.8 110 16 101/63 100 02/20/17 12:00 35 02/20/17 10:00 117 02/20/17 02/20/17 02/21/17 15:00 23:00 07:00 Intake Total 907 ml 779 ml 739 ml Output Total 1165 ml 750 ml 560 ml Balance -258 ml 29 ml 179 ml Intake Oral 0 ml 0 ml IV Total 907 ml 705 ml 670 ml Tube Feeding 74 ml 69 ml Output Urine Total 775 ml 700 ml 500 ml Gastric Drainage Total 350 ml Chest Tube Drainage Total 40 ml 50 ml 60 ml # Bowel Movements 1 0 . Laboratory Tests Test 02/20/17 02/21/17 04:16 04:24 White Blood Count 14.2 TH/MM3 11.9 TH/MM3 Red Blood Count 3.08 MIL/MM3 3.12 MIL/MM3 Hemoglobin 9.2 GM/DL 9.2 GM/DL Hematocrit 26.8 % 28.4 % Mean Corpuscular Volume 87.1 FL 90.9 FL Mean Corpuscular Hemoglobin 30.0 PG 29.4 PG Mean Corpuscular Hemoglobin 34.5 % 32.3 % Concent Red Cell Distribution Width 15.4 % 15.5 % Platelet Count 395 TH/MM3 271 TH/MM3 Mean Platelet Volume 10.0 FL 10.1 FL Neutrophils (%) (Auto) 80.1 % 79.9 % Lymphocytes (%) (Auto) 6.5 % 7.2 % Monocytes (%) (Auto) 12.1 % 12.0 % Eosinophils (%) (Auto) 0.2 % 0.5 % Basophils (%) (Auto) 1.1 % 0.4 % Neutrophils # (Auto) 11.4 TH/MM3 9.5 TH/MM3 Lymphocytes # (Auto) 0.9 TH/MM3 0.9 TH/MM3 Monocytes # (Auto) 1.7 TH/MM3 1.4 TH/MM3 Eosinophils # (Auto) 0.0 TH/MM3 0.1 TH/MM3 Basophils # (Auto) 0.2 TH/MM3 0.1 TH/MM3 CBC Comment DIFF FINAL DIFF FINAL Differential Comment Laboratory Tests Test 02/20/17 02/21/17 04:16 04:24 Sodium Level 137 MEQ/L 137 MEQ/L Potassium Level 3.8 MEQ/L 4.0 MEQ/L Chloride Level 97 MEQ/L 102 MEQ/L Carbon Dioxide Level 29.9 MEQ/L 26.8 MEQ/L Anion Gap 10 MEQ/L 8 MEQ/L Blood Urea Nitrogen 55 MG/DL 52 MG/DL Creatinine 2.37 MG/DL 2.06 MG/DL Estimat Glomerular Filtration 32 ML/MIN 37 ML/MIN Rate Random Glucose 112 MG/DL 124 MG/DL Calcium Level 8.0 MG/DL 7.7 MG/DL Phosphorus Level 2.7 MG/DL 2.6 MG/DL Magnesium Level 1.9 MG/DL Total Bilirubin 1.3 MG/DL Aspartate Amino Transf 56 U/L (AST/SGOT) Alanine Aminotransferase 21 U/L (ALT/SGPT) Alkaline Phosphatase 87 U/L Total Protein 6.7 GM/DL Albumin 2.6 GM/DL 2.0 GM/DL Microbiology Date/Time Procedure Status Source Growth 02/18/17 10:38 Urine Culture - Final Complete Urine Clean Catch NO GROWTH IN 48 HOURS. Imaging Neck Magnetic Resonance Angiography 02/19/17 0000 Signed Impressions: Service Date/Time: Sunday, February 19, 2017 09:18 - CONCLUSION: 1. 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 Left vertebral emanates directly from the arch. 2. Otherwise, cervical vessels are all patent with no significant stenosis. Patient is slightly right vertebral dominant distally. Robbie Huggins MD Head Magnetic Resonance Angiography 02/19/17 0000 Signed Impressions: Service Date/Time: Sunday, February 19, 2017 09:18 - CONCLUSION: 1. 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 Intracranial vessels are otherwise patent. 2. No aneurysmal disease. 3. Anatomic variant of the [place] as above. Patient is right vertebral dominant. Robbie Huggins MD Chest X-Ray 02/19/17 0000 Signed Impressions: Service Date/Time: Sunday, February 19, 2017 11:17 - CONCLUSION: No appreciable change in bilateral pleural effusions bibasilar consolidation and/or compressive collapse and probable mild case of pulmonary edema. Cheyanne Reveles MD Neck Magnetic Resonance Angiography 02/19/17 0000 Signed Impressions: Service Date/Time: Sunday, February 19, 2017 09:18 - CONCLUSION: 1. 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 Left vertebral emanates directly from the arch. 2. Otherwise, cervical vessels are all patent with no significant stenosis. Patient is slightly right vertebral dominant distally. Robbie Huggins MD Head Magnetic Resonance Angiography 02/19/17 0000 Signed Impressions: Service Date/Time: Sunday, February 19, 2017 09:18 - CONCLUSION: 1. 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 Intracranial vessels are otherwise patent. 2. No aneurysmal disease. 3. Anatomic variant of the [place] as above. Patient is right vertebral dominant. Robbie Huggins MD Chest X-Ray 02/19/17 0000 Signed Impressions: Service Date/Time: Sunday, February 19, 2017 11:17 - CONCLUSION: No appreciable change in bilateral pleural effusions bibasilar consolidation and/or compressive collapse and probable mild case of pulmonary edema. Cheyanne Reveles MD Chest X-Ray 02/17/17 0600 Signed Impressions: Service Date/Time: Friday, February 17, 2017 03:54 - CONCLUSION: 1. Bilateral lower lobe atelectasis versus pneumonia. Bilateral effusions. There has been no significant change when compared to the prior exam. Jorge Luis Pritchard MD Chest X-Ray 02/17/17 0000 Signed Impressions: Service Date/Time: Friday, February 17, 2017 17:56 - CONCLUSION: 1. Small caliber right chest tube present without significant pneumothorax. Basilar airspace disease slightly improved on right since exam from earlier today. Clarence Gross MD Chest X-Ray 02/16/17 0600 Signed Impressions: Service Date/Time: Thursday, February 16, 2017 04:06 - CONCLUSION: Improved aeration of the right lung compared to the prior exam. Stevie Fleming MD Chest X-Ray 02/15/17 0600 Signed Impressions: Service Date/Time: February 02:20 - CONCLUSION: Increasing density throughout the right hemithorax with moderate right-sided pleural effusion and probable right basilar atelectasis. Gregory Hoover MD Abdomen X-Ray 02/15/17 0000 Signed Impressions: Service Date/Time: February 11:42 - CONCLUSION: Nonspecific abdomen appearance. Tra Garibay MD Chest X-Ray 02/13/17 0600 Signed Impressions: Service Date/Time: Monday, February 13, 2017 04:07 - CONCLUSION: 1. Persistent right basilar consolidation and probable small pleural effusion. 2. Minimal density in the left retrocardiac region. Gregory Hoover MD Chest X-Ray 02/12/17 0000 Signed Impressions: Service Date/Time: Sunday, February 12, 2017 15:11 - CONCLUSION: Interval intubation. Diffuse right lung pleural-parenchymal opacity Tra Garibay MD Chest X-Ray 02/12/17 0000 Signed Impressions: Service Date/Time: Sunday, February 12, 2017 13:53 - CONCLUSION: Increasing right basilar opacity characteristic of a pleural effusion with associated volume loss and/or airspace consolidation. Tra Ma MD Last Impressions Chest X-Ray 02/09/17 0000 Signed Impressions: Service Date/Time: Thursday, February 09, 2017 12:49 - CONCLUSION: Increasing consolidative changes right lung base. Arya Horton MD FACR Head CT 02/07/171946 Signed Impressions: Service Date/Time: Tuesday, February 07, 2017 20:03 - CONCLUSION: No acute intracranial injury Tra Garibay MD Physical Exam GENERAL: Sedated on the vent. NAD SKIN: Warm and dry, no generalized rash. HEENT: [place] conjunctivae. No scleral icterus. No injection or drainage. ET in mouth. NECK: Trachea midline. Supple, nontender, no meningeal signs. CARDIOVASCULAR: Regular S1S2 RESPIRATORY: Decreased BS, worse on L than R, CT on R GASTROINTESTINAL: Abdomen distended, bowel sounds are present, hypoactive. No reaction to palpation MUSCULOSKELETAL: Extremities without clubbing, cyanosis, or pedal edema. Hands edematous NEUROLOGICAL: Sedated PSYCH: Unable to assess LINE: PIV with no evidence of infection Assessment & Plan Remarks IMPRESSION Respiratory failure, due to worsening pneumonia, likely due to recurrent aspiration Has R effusion, has CT in place Pneumonia present on admission: likely aspiration in setting of dementia. C diff positive Ongoing aspiration. Dementia Acute metabolic encephalopathy Persistent fevers: Concomitant antibiotics for Pneumonia ppting Cdiff, ongoing aspiration - temps better. Renal insufficiency, better Vomiting RECOMMENDATION Stop Cefepime Change flagyl, to oral - for C diff Follow temps Monitor progress Tricia Garcia MD Feb 21, 2017 09:27
--- NOTE | 2017-02-21 10:22 | HHI.NPPN ---
Subjective General Problems: Hypotension Renal Failure: Chronic, Acute Interval History Renal function is better. Good urine output. Remains intubated. (Juliana Saravia) Review of Systems General General Remarks unable to obtain due to intubation/sedation (Juliana Saravia) Objective Data Data 02/20/17 02/21/17 19:00 07:00 Intake Total 907 ml 1518 ml Output Total 1165 ml 1310 ml Balance -258 ml 208 ml Intake Oral 0 ml IV Total 907 ml 1375 ml Tube Feeding 143 ml Output Urine Total 775 ml 1200 ml Gastric Drainage Total 350 ml Chest Tube Drainage Total 40 ml 110 ml # Bowel Movements 1 Vital Signs Date Time Temp Pulse Resp B/P Pulse Ox O2 Delivery O2 Flow Rate FiO2 02/21/17 07:44 100 35 02/21/17 06:00 110 02/21/17 04:00 98.8 112 16 111/65 100 02/21/17 04:00 112 02/21/17 04:00 35 02/21/17 03:15 100 35 02/21/17 02:00 101 02/21/17 00:00 98.0 98 16 109/61 100 02/21/17 00:00 98 02/21/17 00:00 35 02/20/17 23:18 93 35 02/20/17 22:00 113 02/20/17 20:00 35 02/20/17 20:00 109 02/20/17 20:00 99.0 109 16 116/70 100 02/20/17 19:18 100 35 02/20/17 18:00 110 02/20/17 16:45 100 35 02/20/17 16:00 35 02/20/17 16:00 104 02/20/17 16:00 100.1 104 16 107/69 100 02/20/17 14:00 120 02/20/17 12:05 100 35 02/20/17 12:00 110 02/20/17 12:00 99.8 110 16 101/63 100 02/20/17 12:00 35 (Juliana Saravia) -: 02/21/17 0424 02/21/17 0424 Imaging Last 48 hours Impressions Chest X-Ray 02/21/17 0600 Signed Impressions: Service Date/Time: Tuesday, February 21, 2017 04:26 - CONCLUSION: Bilateral lower lobe consolidations. ET tube and NG tube in good position. Sanjay Watts MD Tubes & Lines: [place] Tubes & Lines Comment pig tail drain, chest tube R Drip Comment fentanyl, propofol (Juliana Saravia MACHINE OPERATOR HELPER) Physical Exam General Appearance: No Acute Distress, Sleeping, Malnourished Appearance Remarks frail, elderly AAM intubated/sedated (Juliana Saravia MACHINE OPERATOR HELPER) Eyes Eye Exam: Pupils Equal (Juliana Saravia MACHINE OPERATOR HELPER) Throat Throat Exam: Oral Mucosa [place] & Moist Throat Remarks ETT, OG tube (Juliana aSravia BRhea MACHINE OPERATOR HELPER) Pulmonary Resp Exam: Breath Sounds Equal, Crackles, Rhonchi Resp Remarks vented (Juliana Saravia MACHINE OPERATOR HELPER) Cardiology CV Exam: Good Perfusion, Irregular, Tachycardia (Juliana Saravia B. MACHINE OPERATOR HELPER) Gastrointestinal/Abdomen GI Exam: Non-Tender, Bowel Sounds Present GI Remarks flat, firm, (Juliana Saravia MACHINE OPERATOR HELPER) Musculoskeletal MS Exam: Joints Intact, Atrophy, Unable to Ambulate (Juliana Saravia MACHINE OPERATOR HELPER) Integumentary Skin Exam: Clear, Warm, Dry, Intact (Juliana Saravia MACHINE OPERATOR HELPER) Extremeties Extremities Exam: No Edema, Pedal Pulses Palpable (Juliana Saravia BRhea MACHINE OPERATOR HELPER) Neurologic Neuro Exam: Unresponsive, Sedated (Juliana Saravia B. MACHINE OPERATOR HELPER) VTE Prophylaxis Device: SCDs (Juliana Saravia BRhea MACHINE OPERATOR HELPER) Assessment/Plan Assessment Summary: WILLIE/Acute Renal Failure Electrolyte Assessment: Hyponatremia Problem List: (1) Acute renal failure Plan: in a patient whose baseline creatinine was 1.7 in 2006 ATN from renal hypoperfusion renal function improved good urine output bumex on hold, on IVF (NS) @ 84 cc/hr avoid nephrotoxins, renally dose medications when appropriate daily renal panel (2) Encephalopathy Plan: multifactorial, has hx of dementia was septic and in acute hypoxic respiratory failure continue supportive measures EEG reviewed, (3) Dysphagia Plan: likely will need PEG placement due to chronic aspiration family to discuss goals of care (4) Pneumonia Plan: likely aspiration related cefepime stopped, on oral flagyl appreciate respiratory therapy assistance continue vent management, ween per protocol on 35% Fi02 also with effusion, pigtail catheter placed (5) Clostridium difficile infection Plan: IV changed to PO flagyl contact precautions (Juliana Saravia) Plan patient was seen and examined. Agree with above assessment and plan. Renal function has improved. (Mauro Dallas MD) Problem Qualifiers (1) Pneumonia: Qualified Code: J18.1 - Pneumonia of right lower lobe due to infectious organism Juliana Saravia Feb 21, 2017 10:22 Mauro Dallas MD Feb 21, 2017 18:18
[2017-02-21] MEDS: metroNIDAZOLE 500 MG INJ 100 ML IV SCH ×2 (10:42→16:45)
[2017-02-21] MEDS: CHLORHEXIDINE 0.12% (ORAL KIT) 15 ML CUP MT SCH ×2 (10:42→20:00)
[2017-02-21] MEDS: DOCUSATE SODIUM 100 MG CAP PO SCH ×2 (10:43→20:30)
[2017-02-21] MEDS: SENNOSIDES SYRUP 8.8 MG/5 ML CUP PO SCH ×2 (10:43→20:30)
[2017-02-21] MEDS: LACTOBACILLUS ACIDOPHILUS TAB PO SCH ×3 (10:43→18:39)
[2017-02-21] MEDS: ASPIRIN 81 MG CHEW TAB CHEW SCH ×2 (10:43→20:41)
--- NOTE | 2017-02-21 13:13 | HHI.CCPN ---
Subjective Remarks/Hospital Course Hospital Course: This is a 86yM who presented from home with altered mental status and end-stage dementia. His hospital course has been complicated by C. Diff and pneumonia for which he is on appropriate therapy. He has been noted to have [id number] aspiration during this hospital stay and has been NPO. Today, a rapid response was called for acute respiratory distress and hypoxia. I was called by Dr. Velez at the rapid response. He believe this is an aspiration event given the patient's clinical history. I immediately went and evaluated the patient. He is labored and in distress. his spo2 is 93% on non-rebreather. He is also in what appears to be new-onset atrial fibrillation with RVR and a HR 160s. Brief review of the pertinent laboratory data demonstrate worsening acute kidney injury, worsening anion-gap metabolic acidosis. Critical care medicine is consulted to evaluate and manage his severe respiratory distress and afib RVR. Unfortunately, the patient is obtunded and cannot provide any additional history. 02/13: no clinical improvements. remains in multiorgan system failure. diltiazem drip weaned to off, but remains on phenylephrine. talked with nephrology who feel clinically, despite some element of JVD, that patient is clinically intravascularly hypovolemic and they recommend gentle ivf hydration, which I am ok with as a trial. mental status poor. kidney injury persists. palliative involved. apparently daughter is not health care surrogate legally, but has been making decisions in the outpatient setting. multiple disagreements within the family. appreciate palliative involvement. 02/14: Renal function continues to worsen and today 57/4.1. D/w Nephrology. If family wants everything done, will need to proceed with HD. Tmax 101.1. ID following 02/15: Remains critically ill, did not tolerate brief CPAP trial. CXR shows mod to large R pl effusion. MAXIMUM TEMPERATURE 100.5. Creatinine slightly improved with urine output more than 1.4 L 02/16: Patient remains intubated, lightly sedated.. Did not tolerate C-peptide yesterday due to tachypnea. CT of the chest shows moderately large right effusion plan for thoracentesis 02/17: Tmax 100.7. No bowel movement since 02/12. On sedation vacation withdrawals but does not follow commands. Tolerating tube feeds at goal. 4/16: Afebrile. One bowel movement overnight. Tolerating tube feeding. Placement of 10 Kisw[place]ili pigtail catheter with 600 cc likely transudative effusion. Tachycardic this AM. 02/19: Currently down for CT abdomen/pelvis with distended abdomen. Also MRA brain/neck with acute/subacute bifrontal CVA. Neurology consult pending. Will likely need tracheostomy. 02/20: Noted emesis last night [address] abdomen/pelvis unremarkable. Moderate gastric output. Started on Reglan. Positive BM. Subjective: 02/21: Afebrile. Tolerating trickle feeds. One bowel movement. Noted echocardiogram report yesterday. Discussed with Dr. Garcia - blood cultures 2, vancomycin. Reassess in a.m.. Attempting to obtain consent for tracheostomy with . Objective Vital Signs Date Time Temp Pulse Resp B/P Pulse Ox O2 Delivery O2 Flow Rate FiO2 02/21/17 12:00 94 02/21/17 11:19 95 35 02/21/17 04:00 98.8 16 111/65 Intake and Output 02/20/17 02/20/17 02/21/17 08:00 16:00 00:00 Intake Total 665 ml 907 ml 779 ml Output Total 725 ml 1165 ml 750 ml Balance -60 ml -258 ml 29 ml Result Diagram: 02/21/17 0424 02/21/17 0424 Other Results Microbiology Date/Time Procedure Status Source Growth 02/18/17 10:38 Urine Culture - Final Complete Urine Clean Catch NO GROWTH IN 48 HOURS. Imaging Last Impressions Chest X-Ray 02/21/17 0600 Signed Impressions: Service Date/Time: Tuesday, February 21, 2017 04:26 - CONCLUSION: Bilateral lower lobe consolidations. ET tube and NG tube in good position. Sanjay Watts MD Neck Magnetic Resonance Angiography 02/19/17 0000 Signed Impressions: Service Date/Time: Sunday, February 19, 2017 09:18 - CONCLUSION: 1. 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 Left vertebral emanates directly from the arch. 2. Otherwise, cervical vessels are all patent with no significant stenosis. Patient is slightly right vertebral dominant distally. Robbie Huggins MD Head Magnetic Resonance Angiography 02/19/17 0000 Signed Impressions: Service Date/Time: Sunday, February 19, 2017 09:18 - CONCLUSION: 1. 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 Intracranial vessels are otherwise patent. 2. No aneurysmal disease. 3. Anatomic variant of the wrangell of [place] as above. Patient is right vertebral dominant. Robbie Huggins MD Chest CT 02/16/17 0000 Signed Impressions: Service Date/Time: Thursday, February 16, 2017 13:26 - CONCLUSION: 1. Moderate to large right and small left pleural effusion with associated compressive atelectasis. There additionally is airspace consolidation in the right lower lobe. 2. Small pericardial effusion. 3. There are 2 nodules in the right upper lobe measuring 5 mm and 10 mm. Suggest attention to these at followup imaging. Tra Ma MD Brain MRI 02/16/17 0000 Signed Impressions: Service Date/Time: Thursday, February 16, 2017 13:44 - CONCLUSION: Atrophy and extensive white matter disease as well as micro-bleeds the route the cerebral hemispheres and cerebellum. Punctate foci of acute infarction are suspected within the bilateral frontal white matter as described above. Scott Garcia MD Abdomen/Pelvis CT 02/16/17 0000 Signed Impressions: Service Date/Time: Thursday, February 16, 2017 13:26 - CONCLUSION: 1. Diffuse body wall edema, bilateral effusions, pericardial effusion and lower lobe atelectasis and consolidation. 2. Atherosclerosis. Scott Garcia MD Abdomen X-Ray 02/15/17 0000 Signed Impressions: Service Date/Time: February 11:42 - CONCLUSION: Nonspecific abdomen appearance. Tra Garibay MD Head CT 02/07/171946 Signed Impressions: Service Date/Time: Tuesday, February 07, 2017 20:03 - CONCLUSION: No acute intracranial injury Tra Garibay MD Objective Remarks GENERAL: 86-year-old [place] male, critically ill currently orotracheally intubated SKIN: Warm and dry. No rash HEAD: Atraumatic. Normocephalic. EYES: Pupils equal and round about 3-4 mm bilaterally and reactive. No scleral icterus. No injection or drainage. ENT: No nasal bleeding or discharge. Mucous membranes pink and moist. Oropharynx without erythema NECK: Trachea midline. Minimal JVD. CARDIOVASCULAR: Tachycardic, RR. S1, S2. No S4. Faint systolic murmur/magallon sternal 2 out of 6 RESPIRATORY: Improved breath sounds/aeration throughout the right lung field since placement of pigtail catheter. Few crackles in bases bilaterally. No wheeze GASTROINTESTINAL: Abdomen protuberant. Nontender. Hypoactive bowel sounds are appreciated. MUSCULOSKELETAL: Extremities with trace to 1+ lower extremity pitting edema. No obvious deformities. NEUROLOGICAL: Arousable on sedation vacation but not following commands. Positive gag. Positive corneal reflex. Moves all 4 extremity spontaneously and withdrawal Procedures None Urinary Catheter: Yes Assessment to: Continue Zimmerman insert reason: Prolonged Immobilization Vascular Central Line Catheter: No Assessment to: Continue A/P Assessment and Plan Neuro/Psych: Acute metabolic encephalopathy End-stage dementia Right BURLESQUE DANCER high-grade stenosis Currently On propofol drip at 13 micro-grams per kilogram per minute and Fentanyl drip at 50 g an hour gtt for sedation and analgesia while intubated Goal of RASS -[address] head 02/07 negative for acute disease MRI brain 02/16 revealed increased fluid in the bilateral centrum semi-ovale and PV WM, remote basal ganglia infarcts bilaterally and PV WM. Punctuate micro- bleeds throughout. MRA brain 02/19 revealed left P2 segment BURLESQUE DANCER high-grade stenosis MRI neck - 02/19 - Anatomical Variant Cir., [place]. Left vertebral takes off from aortic arch. Neurology consult Dr. Avalos appreciated. Noted echo 02/12 no vegetations. 02/19 revealed 2 x 4 mm mitral valve leaflet and tricuspid valve lateral leaflet likely vegetation. - See infectious disease Not a anticoagulation candidate per neurology due to micro-hemorrhages. Currently on aspirin 81 mg daily EEG 02/16 reveals moderate to severe encephalopathy. No epileptiform activity. Respiratory: Acute hypoxic respiratory failure Aspiration pneumonitis [id number] aspiration Mod to large R effusion/small left pleural effusion Right upper lobe pulmonary nodules 5 and 10 mm. Recommend follow up CT in 3-6 months [facility] 16/550/1.11/11/34 -- vent bundle Bronchodilator therapy every 6 hours with albuterol every 2 hours for breakthrough -- HOB at 30 degrees -- wean fiO2 for goal spo2 > 92% CT chest 02/16 revealed moderate to large right pleural effusion and atelectasis/ small left pleural effusion. Status post placement of pigtail catheter right effusion 03/19. -40 cm. -150 SS overnight. Will need tracheostomy. Attempted to obtain consistent with Cardiovascular: Atrial Fibrillation with Rapid Ventricular Response- resolved. Sinus tachycardia Distributive shock Acute systolic heart failure Small pericardial effusion Echocardiogram 02/12 revealed EF 30-35%. Moderate TR. MARIA 53 mmHg. Tachycardic in for cystoscopy revealed EF 35%. Hypokinesis global. Tricuspid valve lateral leaflet move all mass, mitral valve 2x4 mm vegetation question right MARIA 52 mmHg. -- Off Cardizem drip for HR control Home medications metoprolol 50 mg daily, losartan 100 mg daily and hydralazine 50 mg twice a day currently on hold. --Continue low-dose Lopressor 5 mill grams IV every 6 with holding parameters Continue NSH 84 cc an hour until 6 AM if tolerating tube feeds Renal: Acute Kidney Injury secondary to ATN secondary to hypoperfusion Bumex 1 mg IV q12 per nephrology has been discontinued Nephrology following. Renal function improving cr 2.1 yesterday. On free water 100 every 6 -- Zimmerman FEN/GI: Acute protein calorie malnutrition- severe C.Difficile Colitis Diarrhea Acute on chronic Aspiration Constipation TF with Jevity 1.5 goal 60 cc an hour currently at 10 cc an hour. Advance to goal today. Colace twice a day/Senokot twice a day CT abdomen/pelvis revealed left kidney protrusion, bilateral pleural effusions and small pericardial effusion. Significant edema to her body cavity. Repeat CT abdomen/pelvis with distended abdomen. Revealed right L1/left L3 transverse process fracture. Anasarca. Heme/ID: C. Difficile Colitis Sepsis acute on chronic aspiration with pneumonitis Leukocytosis ID/Dr. Garcia following ABX per ID Discontinued Cefepime 02/21. Discontinue azithromycin 02/16, Continue Flagyl, for aspiration and C diff. Discuss with ID. Initiate vancomycin after blood cultures 2 drawn for possible endocarditis tricuspid valve/mitral valve. Reassess in a.m. Pertinent cultures 02/07 - blood cultures 2 - no growth 02/08 - stool -- C. difficile positive 02/09 - blood cultures 2 - no growth 02/12 - urine - no growth 02/13 - sputum - no growth 02/15 - blood cultures 2 - no growth 02/18 - urine - no growth Endocrine: Hyperglycemia of critical illness -- SSI, q6h, med scale Prophylaxis: SCDs, SQH to be held with micro-hemorrhages. Resume when clinically indicated, Protonix for GI prophylaxis Critical Care: The total critical care time was 35 minutes. Time to perform other separately billable procedures was not included in the critical care time. Gerry Mike MD Feb 21, 2017 13:13
[2017-02-21] MEDS ORDERED: Vancomycin Consult Pharmacy 1 EA OTHER SCH (13:15)
[2017-02-21] MEDS ORDERED: VANCOMYCIN INJ 1,250 MG in SODIUM CHLOR 0.9% 250 ML INJ 250 ML IV ONE (16:00)
[2017-02-21] MEDS: PROPOFOL 1000 MG/100 ML INJ 100 ML IV SCH (18:39)
[2017-02-22] VITALS (18 sets, daily range): BP systolic 109–162; BP diastolic 61–93; PULSE 90–111; RESP 16–24; TEMP 97.9–98.9; O2SAT 96–99
[2017-02-22] MEDS: METOPROLOL TARTRATE 5 MG/5 ML VIAL IV PUSH SCH ×5 (00:43→21:58)
[2017-02-22] MEDS: metroNIDAZOLE 500 MG INJ 100 ML IV SCH ×3 (00:44→15:25)
[2017-02-22] MEDS: SODIUM CHLOR 0.9% 1000 ML INJ 1,000 ML IV SCH (00:49)
[2017-02-22] MEDS: PROPOFOL 1000 MG/100 ML INJ 100 ML IV SCH (01:04)
[2017-02-22] MEDS: RESP: ALBUTEROL 2.5 MG/IPRATROPIUM 0.5 MG NEB (SCH) INH ×4 (02:49→20:16)
--- NOTE | 2017-02-22 05:04 | RADRPT ---
EXAM DATE/TIME: 02/22/2017 03:16 [place] COMPARISON: CHEST SINGLE AP, February 21, 2017, 4:26. INDICATIONS : Shortness of breath, possible pulmonary disease. MEDICAL HISTORY : Sepsis. SURGICAL HISTORY : None. ENCOUNTER: Subsequent ACUITY: 1 week PAIN SCORE: Non-responsive. LOCATION: Bilateral chest FINDINGS: A single view of the chest demonstrates bilateral diaphragmatic indistinctness particularly in the ri ght lower lobe suspicious for some consolidative infiltrate. Endotracheal tube and nasogastric tube a re both in good position Small pigtail catheter in the right in the pleural cavities unchanged The ca rdiomediastinal contours are unremarkable. Osseous structures are intact. CONCLUSION: Continue consolidation both lung bases right worse the left. Upper lungs are clear. ET tube in good p osition. Sanjay Watts MD on February 22, 2017 at 5:01 Board Certified Radiologist. This report was verified electronically.
[2017-02-22] MEDS: METOCLOPRAMIDE HCL 10 MG/2 ML VIAL IV PUSH SCH ×3 (05:24→21:59)
[2017-02-22] MEDS: INSULIN NovoLIN REGULAR SUPPLEMENTAL SCALE SQ SCH ×4 (05:45→17:51)
[2017-02-22] MEDS: ARTIFICIAL TEARS OPTH SOLN 15 ML BTL EACH EYE SCH ×3 (05:45→22:00)
[2017-02-22] MEDS: FREE WATER G-TUBE SCH ×4 (05:45→17:51)
[2017-02-22 06:33] LABS: BASOPHIL # 0.1 TH/MM3 (0-0.2); BASOPHIL % 0.6 % (0.0-2.0); EOSINOPHIL % 0.2 % (0.0-4.0); HEMATOCRIT 26.6 % (39.0-51.0); HEMO FLAGS DIFF FINAL; LYMPH % 6.9 % (9.0-44.0); LYMPHOCYTE # 0.7 TH/MM3 (1.0-4.8); MEAN CELL VOLUME 87.9 FL (80.0-100.0); MEAN CORPUSCULAR HEMOGLOBIN 29.9 PG (27.0-34.0); MONO % 15.2 % (0.0-8.0); NEUT % 77.1 % (16.0-70.0); PLATELET COUNT 349 TH/MM3 (150-450); RED BLOOD COUNT 3.02 MIL/MM3 (4.50-5.90); RED CELL DISTRIBUTION WIDTH 15.2 % (11.6-17.2); WHITE BLOOD COUNT 10.4 TH/MM3 (4.0-11.0)
[2017-02-22 07:07] LABS: BICARBONATE 28.4 MEQ/L (21.0-32.0); POTASSIUM 3.8 MEQ/L (3.5-5.1)
--- NOTE | 2017-02-22 08:15 | MB ---
cc: PAPITO ABREU M.D. DATE OF CONSULTATION: 02/21/2017 REASON FOR CONSULTATION Tracheostomy placement. HISTORY OF PRESENT ILLNESS The patient is an 86-year-old male who presented with altered mental status and end-stage dementia. The patient's hospital course has been complicated by C. Diff colitis and pneumonia. He has had acute on chronic respiration during this hospital stay. The patient was on drips and is still on phenylephrine but off diltiazem drip. The patient has some kidney injury as well. Palliative care is involved but the family wishes the patient have a tracheostomy placed in the meantime. The patient has also undergone placement of a chest tube on 02/18 for a pleural effusion. PAST MEDICAL HISTORY Past medical history includes: 1. Metabolic encephalopathy. 2. Endstage dementia. 3. Right SEWER CLEANER high-grade stenosis. 4. The patient is currently sedated and intubated for aspiration pneumonitis. 5. The patient also has atrial fibrillation with RVR. 6. Acute kidney injury. 7. History of C. Diff colitis. 8. Acute on chronic aspiration. 9. Leukocytosis. PHYSICAL EXAMINATION GENERAL: His physical exam reveals an -[place]ish male who is sedated. VITAL SIGNS: BP 141/73, pulse 96, respirations 16 with 100% saturation on 35% FIO2. NECK: Neck is supple. CHEST: Chest is clear to auscultation. ABDOMEN: Soft. The patient is being trickle fed at 10 cc/hour. LABORATORY FINDINGS WBCs are 11.9, hemoglobin 9.2, platelets 271,000. Chemistries, potassium 4.0, BUN and creatinine are 52 and 2.06 which is decreased slightly. IMAGING STUDIES Chest x-ray from today demonstrates bilateral lower lobe consolidations. PLAN Family has given permission to undergo tracheostomy. We will accomplish this in the next 48 hours with time permitting. I have discussed this with the nursing staff so that videoscope is available in the mornings. MD EDUARDO Payne/TLL /11:10 PM /7:57 AM
--- NOTE | 2017-02-22 08:34 | HHI.NPPN ---
Subjective General Problems: Hypotension Renal Failure: Chronic, Acute Interval History remains on the ventilator. Renal function has improved. Non oliguric. Review of Systems General General Remarks unable to obtain due to intubation/sedation Objective Data Data 02/21/17 02/22/17 19:00 07:00 Intake Total 899 ml 1766 ml Output Total 460 ml 840 ml Balance 439 ml 926 ml Intake Oral 0 ml 0 ml IV Total 815 ml 1634 ml Tube Feeding 84 ml 132 ml Output Urine Total 400 ml 750 ml Chest Tube Drainage Total 60 ml 90 ml # Bowel Movements 0 0 Vital Signs Date Time Temp Pulse Resp B/P Pulse Ox O2 Delivery O2 Flow Rate FiO2 02/22/17 07:38 99 35 02/22/17 06:00 90 02/22/17 04:08 96 35 02/22/17 04:00 96 02/22/17 04:00 35 02/22/17 04:00 98.9 96 16 109/61 96 02/22/17 02:00 91 02/22/17 01:30 98 35 02/22/17 00:00 104 02/22/17 00:00 35 02/22/17 00:00 104 16 140/75 97 02/21/17 22:00 93 02/21/17 20:00 97.8 96 16 141/73 100 02/21/17 20:00 96 02/21/17 20:00 35 02/21/17 19:24 100 35 02/21/17 18:00 91 02/21/17 16:46 96 35 02/21/17 16:00 99.2 92 16 134/79 100 02/21/17 16:00 92 02/21/17 16:00 35 02/21/17 14:00 100 02/21/17 12:00 94 02/21/17 12:00 98.2 94 16 127/69 100 02/21/17 12:00 35 02/21/17 11:19 95 35 02/21/17 10:00 101 -: 02/22/17 0609 02/22/17 0608 Microbiology 02/21/17 Aerobic Blood Culture, Received Pending 02/21/17 Anaerobic Blood Culture, Received Pending 02/21/17 Aerobic Blood Culture, Received Pending 02/21/17 Anaerobic Blood Culture, Received Pending Tubes & Lines: Zimmerman Tubes & Lines Comment pig tail drain, chest tube R Drip Comment fentanyl, propofol Physical Exam General Appearance: No Acute Distress, Malnourished Eyes Eye Exam: Pupils Equal Throat Throat Exam: Oral Mucosa [place] & Moist Pulmonary Resp Exam: Breath Sounds Equal, Crackles, Rhonchi Cardiology CV Exam: Good Perfusion, Irregular, Tachycardia Gastrointestinal/Abdomen GI Exam: Non-Tender, Bowel Sounds Present Musculoskeletal MS Exam: Joints Intact, Atrophy, Unable to Ambulate Integumentary Skin Exam: Clear, Warm, Dry, Intact Extremeties Extremities Exam: No Edema, Pedal Pulses Palpable Neurologic Neuro Exam: Unresponsive, Sedated VTE Prophylaxis Device: SCDs Assessment/Plan Assessment Summary: WILLIE/Acute Renal Failure Electrolyte Assessment: Hyponatremia Problem List: (1) Acute renal failure Plan: in a patient whose baseline creatinine was 1.7 in 2006 ATN from renal hypoperfusion renal function improved, GFR now at baseline. good urine output IVF stopped. avoid nephrotoxins, renally dose medications when appropriate Monitor renal function. (2) Encephalopathy Plan: multifactorial, has hx of dementia was septic and in acute hypoxic respiratory failure continue supportive measures EEG reviewed, (3) Dysphagia Plan: likely will need PEG placement due to chronic aspiration family to discuss goals of care (4) Pneumonia Plan: likely aspiration related cefepime stopped, on oral flagyl patient received Vancomycin. ID following. (5) Clostridium difficile infection Plan: IV changed to PO flagyl contact precautions Problem Qualifiers (1) Pneumonia: Qualified Code: J18.1 - Pneumonia of right lower lobe due to infectious organism Mauro Dallas MD Feb 22, 2017 08:34
[2017-02-22] MEDS: SENNOSIDES SYRUP 8.8 MG/5 ML CUP PO SCH ×2 (10:01→21:58)
[2017-02-22] MEDS: DOCUSATE SODIUM 100 MG/10 ML UDC PO SCH ×2 (10:01→21:58)
[2017-02-22] MEDS: CHLORHEXIDINE 0.12% (ORAL KIT) 15 ML CUP MT SCH ×2 (10:02→21:59)
[2017-02-22] MEDS: LACTOBACILLUS ACIDOPHILUS TAB PO SCH ×3 (10:02→17:51)
--- NOTE | 2017-02-22 13:04 | HHI.IDPN ---
Subjective Subjective Remarks Notes reviewed D/W RN Temps ok On the vent - on CPAP, tolerating Repeat echo 02/19 with vegetation in MV and TV All his BC are negative BP ok, not on pressors Has CT - serous drainage WBC continues to improve is an 86 y/o AAM (Herber by ) with Dementia who presented with worsening mentation and diagnosed with Pneumonia and Cdiff positive diarrhea. PM records from 2006 indicate no allergies no surgeries. ID following for PNA and Cdiff present on admission. Antibiotics Vancomycin Flagyl IV (cdiff and anaerobic coverage) Lines Line sites with no evidence of infection Past Medical History Dementia. Allergies: Coded Allergies: No Known Allergies (Verified , 11/22/06) UNOBTAINABLE (Unverified , 02/09/17) Objective . Vital Signs Date Time Temp Pulse Resp B/P Pulse Ox O2 Delivery O2 Flow Rate FiO2 02/22/17 12:10 98 35 02/22/17 12:00 35 02/22/17 12:00 91 02/22/17 12:00 98.2 91 24 131/75 98 02/22/17 10:30 35 02/22/17 10:25 35 02/22/17 10:00 93 02/22/17 08:00 111 02/22/17 08:00 98.1 111 20 131/86 96 02/22/17 08:00 35 02/22/17 07:38 99 35 02/22/17 06:00 90 02/22/17 04:08 96 35 02/22/17 04:00 96 02/22/17 04:00 35 02/22/17 04:00 98.9 96 16 109/61 96 02/22/17 02:00 91 02/22/17 01:30 98 35 02/22/17 00:00 104 02/22/17 00:00 35 02/22/17 00:00 104 16 140/75 97 02/21/17 22:00 93 02/21/17 20:00 97.8 96 16 141/73 100 02/21/17 20:00 96 02/21/17 20:00 35 02/21/17 19:24 100 35 02/21/17 18:00 91 02/21/17 16:46 96 35 02/21/17 16:00 99.2 92 16 134/79 100 02/21/17 16:00 92 02/21/17 16:00 35 02/21/17 14:00 100 02/21/17 02/21/17 02/22/17 15:00 23:00 07:00 Intake Total 899 ml 1004 ml 762 ml Output Total 460 ml 440 ml 400 ml Balance 439 ml 564 ml 362 ml Intake Oral 0 ml 0 ml 0 ml IV Total 815 ml 938 ml 696 ml Tube Feeding 84 ml 66 ml 66 ml Output Urine Total 400 ml 400 ml 350 ml Chest Tube Drainage Total 60 ml 40 ml 50 ml # Bowel Movements 0 0 0 . Laboratory Tests Test 02/21/17 02/22/17 04:24 06:09 White Blood Count 11.9 TH/MM3 10.4 TH/MM3 Red Blood Count 3.12 MIL/MM3 3.02 MIL/MM3 Hemoglobin 9.2 GM/DL 9.0 GM/DL Hematocrit 28.4 % 26.6 % Mean Corpuscular Volume 90.9 FL 87.9 FL Mean Corpuscular Hemoglobin 29.4 PG 29.9 PG Mean Corpuscular Hemoglobin 32.3 % 34.0 % Concent Red Cell Distribution Width 15.5 % 15.2 % Platelet Count 271 TH/MM3 349 TH/MM3 Mean Platelet Volume 10.1 FL 8.5 FL Neutrophils (%) (Auto) 79.9 % 77.1 % Lymphocytes (%) (Auto) 7.2 % 6.9 % Monocytes (%) (Auto) 12.0 % 15.2 % Eosinophils (%) (Auto) 0.5 % 0.2 % Basophils (%) (Auto) 0.4 % 0.6 % Neutrophils # (Auto) 9.5 TH/MM3 8.0 TH/MM3 Lymphocytes # (Auto) 0.9 TH/MM3 0.7 TH/MM3 Monocytes # (Auto) 1.4 TH/MM3 1.6 TH/MM3 Eosinophils # (Auto) 0.1 TH/MM3 0.0 TH/MM3 Basophils # (Auto) 0.1 TH/MM3 0.1 TH/MM3 CBC Comment DIFF FINAL DIFF FINAL Differential Comment Laboratory Tests Test 02/21/17 02/22/17 04:24 06:08 Sodium Level 137 MEQ/L 142 MEQ/L Potassium Level 4.0 MEQ/L 3.8 MEQ/L Chloride Level 102 MEQ/L 106 MEQ/L Carbon Dioxide Level 26.8 MEQ/L 28.4 MEQ/L Anion Gap 8 MEQ/L 8 MEQ/L Blood Urea Nitrogen 52 MG/DL 44 MG/DL Creatinine 2.06 MG/DL 1.69 MG/DL Estimat Glomerular Filtration 37 ML/MIN 47 ML/MIN Rate Random Glucose 124 MG/DL 110 MG/DL Calcium Level 7.7 MG/DL 7.7 MG/DL Phosphorus Level 2.6 MG/DL 2.2 MG/DL Albumin 2.0 GM/DL Magnesium Level 2.0 MG/DL Microbiology Date/Time Procedure Status Source Growth 02/21/17 14:00 Aerobic Blood Culture - Preliminary Resulted Blood Peripheral NO GROWTH IN 1 DAY 02/21/17 14:00 Anaerobic Blood Culture - Preliminary Resulted Blood Peripheral NO GROWTH IN 1 DAY 02/21/17 14:05 Aerobic Blood Culture - Preliminary Resulted Blood Peripheral NO GROWTH IN 1 DAY 02/21/17 14:05 Anaerobic Blood Culture - Preliminary Resulted Blood Peripheral NO GROWTH IN 1 DAY Imaging Neck Magnetic Resonance Angiography 02/19/17 0000 Signed Impressions: Service Date/Time: Sunday, February 19, 2017 09:18 - CONCLUSION: 1. 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 Left vertebral emanates directly from the arch. 2. Otherwise, cervical vessels are all patent with no significant stenosis. Patient is slightly right vertebral dominant distally. Robbie Huggins MD Head Magnetic Resonance Angiography 02/19/17 0000 Signed Impressions: Service Date/Time: Sunday, February 19, 2017 09:18 - CONCLUSION: 1. 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 Intracranial vessels are otherwise patent. 2. No aneurysmal disease. 3. Anatomic variant of the [place] as above. Patient is right vertebral dominant. Robbie Huggins MD Chest X-Ray 02/19/17 0000 Signed Impressions: Service Date/Time: Sunday, February 19, 2017 11:17 - CONCLUSION: No appreciable change in bilateral pleural effusions bibasilar consolidation and/or compressive collapse and probable mild case of pulmonary edema. Cheyanne Reveles MD Neck Magnetic Resonance Angiography 02/19/17 0000 Signed Impressions: Service Date/Time: Sunday, February 19, 2017 09:18 - CONCLUSION: 1. 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 Left vertebral emanates directly from the arch. 2. Otherwise, cervical vessels are all patent with no significant stenosis. Patient is slightly right vertebral dominant distally. Robbie Huggins MD Head Magnetic Resonance Angiography 02/19/17 0000 Signed Impressions: Service Date/Time: Sunday, February 19, 2017 09:18 - CONCLUSION: 1. 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 Intracranial vessels are otherwise patent. 2. No aneurysmal disease. 3. Anatomic variant of the [place] as above. Patient is right vertebral dominant. Robbie Huggins MD Chest X-Ray 02/19/17 0000 Signed Impressions: Service Date/Time: Sunday, February 19, 2017 11:17 - CONCLUSION: No appreciable change in bilateral pleural effusions bibasilar consolidation and/or compressive collapse and probable mild case of pulmonary edema. Cheyanne Reveles MD Chest X-Ray 02/17/17 0600 Signed Impressions: Service Date/Time: Friday, February 17, 2017 03:54 - CONCLUSION: 1. Bilateral lower lobe atelectasis versus pneumonia. Bilateral effusions. There has been no significant change when compared to the prior exam. Jorge Luis Pritchard MD Chest X-Ray 02/17/17 0000 Signed Impressions: Service Date/Time: Friday, February 17, 2017 17:56 - CONCLUSION: 1. Small caliber right chest tube present without significant pneumothorax. Basilar airspace disease slightly improved on right since exam from earlier today. Clarence Gross MD Chest X-Ray 02/16/17 0600 Signed Impressions: Service Date/Time: Thursday, February 16, 2017 04:06 - CONCLUSION: Improved aeration of the right lung compared to the prior exam. Stevie Fleming MD Chest X-Ray 02/15/17 0600 Signed Impressions: Service Date/Time: February 02:20 - CONCLUSION: Increasing density throughout the right hemithorax with moderate right-sided pleural effusion and probable right basilar atelectasis. Gregory Hoover MD Abdomen X-Ray 02/15/17 0000 Signed Impressions: Service Date/Time: February 11:42 - CONCLUSION: Nonspecific abdomen appearance. Tra Garibay MD Chest X-Ray 02/13/17 0600 Signed Impressions: Service Date/Time: Monday, February 13, 2017 04:07 - CONCLUSION: 1. Persistent right basilar consolidation and probable small pleural effusion. 2. Minimal density in the left retrocardiac region. Gregory Hoover MD Chest X-Ray 02/12/17 0000 Signed Impressions: Service Date/Time: Sunday, February 12, 2017 15:11 - CONCLUSION: Interval intubation. Diffuse right lung pleural-parenchymal opacity Tra Garibay MD Chest X-Ray 02/12/17 0000 Signed Impressions: Service Date/Time: Sunday, February 12, 2017 13:53 - CONCLUSION: Increasing right basilar opacity characteristic of a pleural effusion with associated volume loss and/or airspace consolidation. Tra Ma MD Last Impressions Chest X-Ray 02/09/17 0000 Signed Impressions: Service Date/Time: Thursday, February 09, 2017 12:49 - CONCLUSION: Increasing consolidative changes right lung base. Arya Horton MD FACR Head CT 02/07/171946 Signed Impressions: Service Date/Time: Tuesday, February 07, 2017 20:03 - CONCLUSION: No acute intracranial injury Tra Garibay MD Physical Exam GENERAL: Sedated on the vent. NAD SKIN: Warm and dry, no generalized rash. HEENT: [place] conjunctivae. No scleral icterus. No injection or drainage. ET in mouth. NECK: Trachea midline. Supple, nontender, no meningeal signs. CARDIOVASCULAR: Regular S1S2 RESPIRATORY: Decreased BS, worse on L than R, CT on R GASTROINTESTINAL: Abdomen distended, bowel sounds are present, hypoactive. No reaction to palpation MUSCULOSKELETAL: Extremities without clubbing, cyanosis, or pedal edema. Hands edematous NEUROLOGICAL: Sedated PSYCH: Unable to assess LINE: PIV with no evidence of infection Assessment & Plan Remarks IMPRESSION Respiratory failure, due to worsening pneumonia, likely due to recurrent aspiration - S/P RX MV and TV vegetation on recent echo, all BC have been negative Has R effusion, has CT in place Pneumonia present on admission: likely aspiration in setting of dementia. S/P Rx C diff positive, clinically resolved Ongoing aspiration. Dementia Acute metabolic encephalopathy Fevers: Concomitant antibiotics for Pneumonia ppting Cdiff, ongoing aspiration - temps better. Renal insufficiency, better Vomiting, better RECOMMENDATION Continue IV Vanco Change flagyl, to oral - for C diff Follow temps Monitor progress Follow new C/S Tricia Garcia MD Feb 22, 2017 13:04
--- NOTE | 2017-02-22 13:11 | HHI.CCPN ---
Subjective Remarks/Hospital Course Hospital Course: This is a 86yM who presented from home with altered mental status and end-stage dementia. His hospital course has been complicated by C. Diff and pneumonia for which he is on appropriate therapy. He has been noted to have [id number] aspiration during this hospital stay and has been NPO. Today, a rapid response was called for acute respiratory distress and hypoxia. I was called by Dr. Velez at the rapid response. He believe this is an aspiration event given the patient's clinical history. I immediately went and evaluated the patient. He is labored and in distress. his spo2 is 93% on non-rebreather. He is also in what appears to be new-onset atrial fibrillation with RVR and a HR 160s. Brief review of the pertinent laboratory data demonstrate worsening acute kidney injury, worsening anion-gap metabolic acidosis. Critical care medicine is consulted to evaluate and manage his severe respiratory distress and afib RVR. Unfortunately, the patient is obtunded and cannot provide any additional history. 02/13: no clinical improvements. remains in multiorgan system failure. diltiazem drip weaned to off, but remains on phenylephrine. talked with nephrology who feel clinically, despite some element of JVD, that patient is clinically intravascularly hypovolemic and they recommend gentle ivf hydration, which I am ok with as a trial. mental status poor. kidney injury persists. palliative involved. apparently daughter is not health care surrogate legally, but has been making decisions in the outpatient setting. multiple disagreements within the family. appreciate palliative involvement. 02/14: Renal function continues to worsen and today 57/4.1. D/w Nephrology. If family wants everything done, will need to proceed with HD. Tmax 101.1. ID following 02/15: Remains critically ill, did not tolerate brief CPAP trial. CXR shows mod to large R pl effusion. MAXIMUM TEMPERATURE 100.5. Creatinine slightly improved with urine output more than 1.4 L 02/16: Patient remains intubated, lightly sedated.. Did not tolerate C-peptide yesterday due to tachypnea. CT of the chest shows moderately large right effusion plan for thoracentesis 02/17: Tmax 100.7. No bowel movement since 02/12. On sedation vacation withdrawals but does not follow commands. Tolerating tube feeds at goal. 4/16: Afebrile. One bowel movement overnight. Tolerating tube feeding. Placement of 10 [place] pigtail catheter with 600 cc likely transudative effusion. Tachycardic this AM. 02/19: Currently down for CT abdomen/pelvis with distended abdomen. Also MRA brain/neck with acute/subacute bifrontal CVA. Neurology consult pending. Will likely need tracheostomy. 02/20: Noted emesis last night [address] abdomen/pelvis unremarkable. Moderate gastric output. Started on Reglan. Positive BM. Subjective: 02/21: Afebrile. Tolerating trickle feeds. One bowel movement. Noted echocardiogram report yesterday. Discussed with Dr. Garcia - blood cultures 2, vancomycin. Reassess in a.m.. Attempting to obtain consent for tracheostomy with . 02/22: Neuro exam unchanged. Mental status will not permit extubation. UO adequate, creat improving. Tracheostomy tomorrow Objective Vital Signs Date Time Temp Pulse Resp B/P Pulse Ox O2 Delivery O2 Flow Rate FiO2 02/22/17 12:10 98 35 02/22/17 12:00 91 02/22/17 12:00 98.2 24 131/75 Intake and Output 02/21/17 02/21/17 02/22/17 08:00 16:00 00:00 Intake Total 739 ml 899 ml 1004 ml Output Total 560 ml 460 ml 440 ml Balance 179 ml 439 ml 564 ml Result Diagram: 02/22/17 0609 02/22/17 0608 Imaging Last Impressions Chest X-Ray 02/21/17 0600 Signed Impressions: Service Date/Time: Tuesday, February 21, 2017 04:26 - CONCLUSION: Bilateral lower lobe consolidations. ET tube and NG tube in good position. Sanjay Watts MD Neck Magnetic Resonance Angiography 02/19/17 0000 Signed Impressions: Service Date/Time: Sunday, February 19, 2017 09:18 - CONCLUSION: 1. 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 Left vertebral emanates directly from the arch. 2. Otherwise, cervical vessels are all patent with no significant stenosis. Patient is slightly right vertebral dominant distally. Robbie Huggins MD Head Magnetic Resonance Angiography 02/19/17 0000 Signed Impressions: Service Date/Time: Sunday, February 19, 2017 09:18 - CONCLUSION: 1. 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 Intracranial vessels are otherwise patent. 2. No aneurysmal disease. 3. Anatomic variant of the [place] as above. Patient is right vertebral dominant. Robbie Huggins MD Chest CT 02/16/17 0000 Signed Impressions: Service Date/Time: Thursday, February 16, 2017 13:26 - CONCLUSION: 1. Moderate to large right and small left pleural effusion with associated compressive atelectasis. There additionally is airspace consolidation in the right lower lobe. 2. Small pericardial effusion. 3. There are 2 nodules in the right upper lobe measuring 5 mm and 10 mm. Suggest attention to these at followup imaging. Tra Ma MD Brain MRI 02/16/17 0000 Signed Impressions: Service Date/Time: Thursday, February 16, 2017 13:44 - CONCLUSION: Atrophy and extensive white matter disease as well as micro-bleeds the route the cerebral hemispheres and cerebellum. Punctate foci of acute infarction are suspected within the bilateral frontal white matter as described above. Scott Garcia MD Abdomen/Pelvis CT 02/16/17 0000 Signed Impressions: Service Date/Time: Thursday, February 16, 2017 13:26 - CONCLUSION: 1. Diffuse body wall edema, bilateral effusions, pericardial effusion and lower lobe atelectasis and consolidation. 2. Atherosclerosis. Scott Garcia MD Abdomen X-Ray 02/15/17 0000 Signed Impressions: Service Date/Time: February 11:42 - CONCLUSION: Nonspecific abdomen appearance. Tra Garibay MD Head CT 02/07/171946 Signed Impressions: Service Date/Time: Tuesday, February 07, 2017 20:03 - CONCLUSION: No acute intracranial injury Tra Garibay MD Objective Remarks GENERAL: 86-year-old [place] male, critically ill currently orotracheally intubated SKIN: Warm and dry. No rash HEAD: Atraumatic. Normocephalic. EYES: Pupils equal and round about 3-4 mm bilaterally and reactive. No scleral icterus. No injection or drainage. ENT: No nasal bleeding or discharge. Mucous membranes pink and moist. Oropharynx without erythema NECK: Trachea midline. Minimal JVD. CARDIOVASCULAR: Tachycardic, RR. S1, S2. No S4. Faint systolic murmur/[place] sternal 2 out of 6 RESPIRATORY: Improved breath sounds/aeration throughout the right lung field since placement of pigtail catheter. Few crackles in bases bilaterally. No wheeze GASTROINTESTINAL: Abdomen protuberant. Nontender. Hypoactive bowel sounds are appreciated. MUSCULOSKELETAL: Extremities with trace to 1+ lower extremity pitting edema. No obvious deformities. NEUROLOGICAL: Arousable on sedation vacation but not following commands. Positive gag. Positive corneal reflex. Moves all 4 extremity spontaneously and withdrawal Procedures None A/P Assessment and Plan Neuro/Psych: Acute metabolic encephalopathy End-stage dementia Right [place] high-grade stenosis Currently On propofol and Fentanyl for sedation and analgesia while intubated Goal of RASS -2. Daily sedation vacation CT head 02/07 negative for acute disease MRI brain 02/16 revealed increased fluid in the bilateral centrum semi-ovale and PV WM, remote basal ganglia infarcts bilaterally and PV WM. Punctuate micro- bleeds throughout. MRA brain 02/19 revealed left P2 segment M[place] high-grade stenosis MRI neck - 02/19 - Anatomical Variant Cir., [place]. Left vertebral takes off from aortic arch. Neurology consult Dr. Avalos appreciated. Noted echo 02/12 no vegetations. 02/19 revealed 2 x 4 mm mitral valve leaflet and tricuspid valve lateral leaflet likely vegetation. - See infectious disease Not a anticoagulation candidate per neurology due to micro-hemorrhages. Currently on aspirin 81 mg daily EEG 02/16 reveals moderate to severe encephalopathy. No epileptiform activity. Respiratory: Acute hypoxic respiratory failure Aspiration pneumonitis Evgco-jw-wdirmso aspiration Mod to large R effusion/small left pleural effusion Right upper lobe pulmonary nodules 5 and 10 mm. Recommend follow up CT in 3-6 months [facility] 16//1.11/11/34 -- vent bundle Bronchodilator therapy every 6 hours with albuterol every 2 hours for breakthrough -- HOB at 30 degrees -- wean fiO2 for goal spo2 > 90% CT chest 02/16 revealed moderate to large right pleural effusion and atelectasis/ small left pleural effusion. Status post placement of pigtail catheter right effusion 03/19. -40 cm. -150 SS overnight. Tracheostomy 02/[address] Zurita Cardiovascular: Atrial Fibrillation with Rapid Ventricular Response- resolved. Sinus tachycardia Distributive shock Acute systolic heart failure Small pericardial effusion Echocardiogram 02/12 revealed EF 30-35%. Moderate TR. MARIA 53 mmHg. revealed EF 35%. Hypokinesis global. Small Mobile densities tricuspid and mitral valve ? vegetation question right MARIA 52 mmHg. -- Off Cardizem drip for HR control Home medications metoprolol 50 mg daily, losartan 100 mg daily and hydralazine 50 mg twice a day currently on hold. --Continue low-dose Lopressor 5 mill grams IV every 6 with holding parameters Continue NS 84 cc an hour until 6 AM if tolerating tube feeds Renal: Acute Kidney Injury secondary to ATN secondary to hypoperfusion Bumex 1 mg IV q12 per nephrology has been discontinued Nephrology following. Renal function improving cr On free water 100 every 6 -- Zimmerman FEN/GI: Acute protein calorie malnutrition- severe C.Difficile Colitis Diarrhea Acute on chronic Aspiration Constipation TF with Jevity 1.5 goal 60 cc an hour currently at 10 cc an hour. Advance to goal today. Colace twice a day/Senokot twice a day CT abdomen/pelvis revealed left kidney protrusion, bilateral pleural effusions and small pericardial effusion. Significant edema to her body cavity. Repeat CT abdomen/pelvis with distended abdomen. Revealed right L1/left L3 transverse process fracture. Anasarca. Heme/ID: C. Difficile Colitis Sepsis acute on chronic aspiration with pneumonitis Leukocytosis ID/Dr. Garcia following ABX per ID Discontinued Cefepime 02/21. Discontinue azithromycin 02/16, Continue Flagyl, for aspiration and C diff. Discuss with ID. Initiated vancomycin after blood cultures 2 drawn for possible endocarditis tricuspid valve/mitral valve. Reassess in a.m. Pertinent cultures 02/07 - blood cultures 2 - no growth 02/08 - stool -- C. difficile positive 02/09 - blood cultures 2 - no growth 02/12 - urine - no growth 02/13 - sputum - no growth 02/15 - blood cultures 2 - no growth 02/18 - urine - no growth 02/21 - blood no growth to date Endocrine: Hyperglycemia of critical illness -- SSI, q6h, med scale Prophylaxis: SCDs, SQH to be held with micro-hemorrhages. Resume when clinically indicated, Protonix for GI prophylaxis Critical Care: Level 3. Trach tomorrow Tamera Dutta MD Feb 22, 2017 13:11
--- NOTE | 2017-02-22 23:03 | HHI.PR ---
Subjective Subjective Notes For perc trach tomorrow Objective Vitals/I&O Vital Signs Date Time Temp Pulse Resp B/P Pulse Ox O2 Delivery O2 Flow Rate FiO2 02/22/17 20:11 99 35 02/22/17 18:00 100 02/22/17 16:00 97.9 18 139/80 Labs Laboratory Tests Test 02/22/17 02/22/17 06:08 06:09 Sodium Level 142 Potassium Level 3.8 Chloride Level 106 Carbon Dioxide Level 28.4 Anion Gap 8 Blood Urea Nitrogen 44 Creatinine 1.69 Estimat Glomerular Filtration 47 Rate Random Glucose 110 Calcium Level 7.7 Phosphorus Level 2.2 Magnesium Level 2.0 White Blood Count 10.4 Red Blood Count 3.02 Hemoglobin 9.0 Hematocrit 26.6 Mean Corpuscular Volume 87.9 Mean Corpuscular Hemoglobin 29.9 Mean Corpuscular Hemoglobin 34.0 Concent Red Cell Distribution Width 15.2 Platelet Count 349 Mean Platelet Volume 8.5 Neutrophils (%) (Auto) 77.1 Lymphocytes (%) (Auto) 6.9 Monocytes (%) (Auto) 15.2 Eosinophils (%) (Auto) 0.2 Basophils (%) (Auto) 0.6 Neutrophils # (Auto) 8.0 Lymphocytes # (Auto) 0.7 Monocytes # (Auto) 1.6 Eosinophils # (Auto) 0.0 Basophils # (Auto) 0.1 CBC Comment DIFF FINAL Differential Comment Date/Time Procedure Status Source Growth 02/21/17 14:05 Aerobic Blood Culture - Preliminary Resulted Blood Peripheral NO GROWTH IN 1 DAY 02/21/17 14:05 Anaerobic Blood Culture - Preliminary Resulted Blood Peripheral NO GROWTH IN 1 DAY 02/18/17 10:38 Urine Culture - Final Complete Urine Clean Catch NO GROWTH IN 48 HOURS. Hermilo Zurita MD Feb 22, 2017 23:03
[2017-02-23] VITALS (18 sets, daily range): BP systolic 122–210; BP diastolic 72–109; PULSE 88–115; RESP 16–18; TEMP 98.3–98.9; O2SAT 96–100
[2017-02-23] MEDS: metroNIDAZOLE 500 MG INJ 100 ML IV SCH ×2 (02:59→08:00)
[2017-02-23] MEDS: RESP: ALBUTEROL 2.5 MG/IPRATROPIUM 0.5 MG NEB (SCH) INH ×2 (04:06→07:52)
--- NOTE | 2017-02-23 04:57 | RADRPT ---
EXAM DATE/TIME: 02/23/2017 04:01 [place] COMPARISON: CHEST SINGLE AP, February 22, 2017, 3:16. INDICATIONS : Evaluate for respiratory disease. MEDICAL HISTORY : Sepsis. SURGICAL HISTORY : None. ENCOUNTER: Subsequent ACUITY: 2 weeks PAIN SCORE: Non-responsive. LOCATION: chest FINDINGS: A single portable frontal view of the chest shows an endotracheal tube with the tip 3 cm proximal to the junie. Tip of the NG tube courses off the inferior margin of the film. Bibasilar consolidation i s again seen more pronounced on the right. This is unchanged. The heart is normal in size. CONCLUSION: Unchanged bibasilar infiltrates. Kaiser Valiente Jr., MD on February 23, 2017 at 4:54 Board Certified Radiologist. This report was verified electronically.
[2017-02-23] MEDS: METOCLOPRAMIDE HCL 10 MG/2 ML VIAL IV PUSH SCH ×3 (05:50→22:00)
[2017-02-23] MEDS: INSULIN NovoLIN REGULAR SUPPLEMENTAL SCALE SQ SCH ×4 (05:50→22:36)
[2017-02-23] MEDS: METOPROLOL TARTRATE 5 MG/5 ML VIAL IV PUSH SCH ×4 (05:50→22:36)
[2017-02-23] MEDS: ARTIFICIAL TEARS OPTH SOLN 15 ML BTL EACH EYE SCH ×3 (06:00→22:38)
[2017-02-23 06:52] LABS: AUTOMATED NEUTROPHIL # 7.6 TH/MM3 (1.8-7.7); BASOPHIL % 0.5 % (0.0-2.0); EOSINOPHIL % 0.1 % (0.0-4.0); HEMATOCRIT 27.5 % (39.0-51.0); HEMO FLAGS DIFF FINAL; LYMPH % 8.1 % (9.0-44.0); LYMPHOCYTE # 0.8 TH/MM3 (1.0-4.8); MEAN CELL VOLUME 88.2 FL (80.0-100.0); MEAN CORPUSCULAR HEMOGLOBIN 29.5 PG (27.0-34.0); MEAN CORPUSCULAR HGB CONC 33.4 % (32.0-36.0); MONO % 14.3 % (0.0-8.0); PLATELET COUNT 347 TH/MM3 (150-450); RED BLOOD COUNT 3.12 MIL/MM3 (4.50-5.90); RED CELL DISTRIBUTION WIDTH 15.1 % (11.6-17.2); WHITE BLOOD COUNT 9.8 TH/MM3 (4.0-11.0)
[2017-02-23 07:27] LABS: ALKALINE PHOSPHATASE 98 U/L (45-117); ALT (GPT) 21 U/L (12-78); ANION GAP 8 MEQ/L (5-15); AST (GOT) 58 U/L (15-37); BICARBONATE 25.8 MEQ/L (21.0-32.0); BLOOD UREA NITROGEN 37 MG/DL (7-18); CHLORIDE 106 MEQ/L (98-107); GLOMERULAR FILTRATION RATE 52 ML/MIN (>89); POTASSIUM 3.7 MEQ/L (3.5-5.1); SODIUM (NA) 140 MEQ/L (136-145)
[2017-02-23] MEDS: CHLORHEXIDINE 0.12% (ORAL KIT) 15 ML CUP MT SCH (08:00)
[2017-02-23] MEDS: LACTOBACILLUS ACIDOPHILUS TAB PO SCH ×3 (09:00→17:13)
[2017-02-23] MEDS: DOCUSATE SODIUM 100 MG/10 ML UDC PO SCH ×2 (09:00→21:00)
[2017-02-23] MEDS: ASPIRIN 81 MG CHEW TAB CHEW SCH (09:00)
[2017-02-23] MEDS: SENNOSIDES SYRUP 8.8 MG/5 ML CUP PO SCH ×2 (09:00→21:00)
[2017-02-23] MEDS ORDERED: MIDAZOLAM HCL 5 MG/ML VIAL (1 ML) ONE (10:36)
[2017-02-23] MEDS ORDERED: MIDAZOLAM HCL 5 MG/5 ML VIAL IV PUSH ONE (11:00)
[2017-02-23] MEDS ORDERED: fentaNYL CITRATE 250 MCG/5 ML AMP IV PUSH ONE (11:00)
[2017-02-23] MEDS ORDERED: ROCURONIUM INJ 100 MG/10 ML VIAL IV ONE (11:00)
--- NOTE | 2017-02-23 11:13 | PD.CONS ---
HPI History of Present Illness This is a 86 year old male who presented from a local retirement with altered mental status and end stage dementia. He has been receiving treatment for CDiff Colitis, Pneumonia, and acute on chronic aspiration. On 02/22, a HALICAT was called for acute respiratory distress and hypoxia. He was transferred to the unit, where he was intubated and placed on mechanical ventilation. He is unable to provide any history and therefore the history has been obtained from the EMR. He now remains in the ICU, sedated on the ventilator. He is being treated for acute metabolic encephalopathy, end stage dementia, right SUPERVISOR MARBLE high grade stenosis, acute hypoxic respiratory failure, aspiration pneumonitis, acute on chronic asapiration, moderate to large right effusion/small left pleural effusion, right upper lobe pulmonary nodules, atrial fibrillation with RVR, Acute systolic heart failure, small pericardial effusion, acute kidney injury, acute protein calorie malnutrition, and CDiff Colitis. He is requiring prolonged mechanical ventilation and GS has been consulted for tracheostomy, which is scheduled for later this am and GI has been consulted for PEG tube placement. The vehicle inspector is following and has recommended Jevity 1.5 at 50 ml/ hr. Attempted to call Geraldine Morgan at [phone]. There was no answer and therefore I left message for her to return call. (Gabby Varela) [facility] Past Medical History Dementia Unable to obtain Past Surgical History Unable to obtain (Gabby Varela) Coded Allergies: No Known Allergies (Verified , 11/22/06) UNOBTAINABLE (Unverified , 02/09/17) Medications Allergies Coded Allergies Type Severity Reaction Last Updated Verified No Known Allergies 11/22/06 Yes UNOBTAINABLE 02/09/17 No Active Scripts Medications Dose Route/Sig Days Date Category Dose Instructions No Current Meds (Miscellaneous Medication) [facility] 11/21/06 Reported Hydralazine (Hydralazine HCl) 50 Mg Tab 50 Mg PO BID 02/08/17 Reported Take with a meal Metoprolol Succinate ER 24 HR (Metoprolol Succinate) 50 Mg Tab 50 Mg PO DAILY 02/08/17 Reported Losartan (Losartan Potassium) 100 Mg Tab 100 Mg PO DAILY 02/08/17 Reported Family History Unable to obtain due to he patients clinical status and no family available Social History Unable to obtain (Gabby Varela) Review of Systems ROS Unable to obtain (Gabby Varela) GI Exam Vitals I&O Vital Signs Date Time Temp Pulse Resp B/P Pulse Ox O2 Delivery O2 Flow Rate FiO2 02/23/17 10:00 102 02/23/17 08:00 35 02/23/17 08:00 98.7 105 18 170/85 96 02/23/17 08:00 105 02/23/17 07:52 100 100 02/23/17 06:00 100 02/23/17 04:16 98 35 02/23/17 04:00 98.3 108 18 180/86 96 02/23/17 04:00 35 02/23/17 04:00 100 02/23/17 02:00 97 02/23/17 01:01 100 35 02/23/17 00:00 35 02/23/17 00:00 98.9 97 16 158/94 96 02/23/17 00:00 97 02/22/17 22:00 35 02/22/17 22:00 100 02/22/17 22:00 98.8 100 20 162/93 96 02/22/17 20:11 99 35 02/22/17 20:00 108 02/22/17 18:00 100 02/22/17 16:00 102 02/22/17 16:00 97.9 102 18 139/80 98 02/22/17 16:00 35 02/22/17 15:35 35 02/22/17 15:34 99 35 02/22/17 14:00 101 02/22/17 12:10 98 35 02/22/17 12:00 35 02/22/17 12:00 91 02/22/17 12:00 98.2 91 24 131/75 98 I/O 02/22/17 02/22/17 02/22/17 02/23/17 02/23/17 02/23/17 07:00 15:00 23:00 07:00 15:00 23:00 Intake Total 762 ml 1442 ml 657 ml 154 ml Output Total 400 ml 530 ml 300 ml 300 ml Balance 362 ml 912 ml 357 ml -146 ml Intake Oral 0 ml IV Total 696 ml 855 ml 161 ml 154 ml Tube Feeding 66 ml 167 ml 196 ml Tube Irrigant 120 ml Other 300 ml 300 ml Output Urine Total 350 ml 450 ml 300 ml 300 ml Chest Tube Drainage Total 50 ml 80 ml Bladder Scan Volume Amount 176 ml 176 ml 176 ml # Bowel Movements 0 2 1 Imaging Last Impressions Chest X-Ray 02/23/17 0600 Signed Impressions: Service Date/Time: Thursday, February 23, 2017 04:01 - CONCLUSION: Unchanged bibasilar infiltrates. Kaiser Valiente Jr., MD Neck Magnetic Resonance Angiography 02/19/17 0000 Signed Impressions: Service Date/Time: Sunday, February 19, 2017 09:18 - CONCLUSION: 1. 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 Left vertebral emanates directly from the arch. 2. Otherwise, cervical vessels are all patent with no significant stenosis. Patient is slightly right vertebral dominant distally. Robbie Huggins MD Head Magnetic Resonance Angiography 02/19/17 0000 Signed Impressions: Service Date/Time: Sunday, February 19, 2017 09:18 - CONCLUSION: 1. 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 Intracranial vessels are otherwise patent. 2. No aneurysmal disease. 3. Anatomic variant of the [place] as above. Patient is right vertebral dominant. Robbie Huggins MD Chest CT 02/16/17 0000 Signed Impressions: Service Date/Time: Thursday, February 16, 2017 13:26 - CONCLUSION: 1. Moderate to large right and small left pleural effusion with associated compressive atelectasis. There additionally is airspace consolidation in the right lower lobe. 2. Small pericardial effusion. 3. There are 2 nodules in the right upper lobe measuring 5 mm and 10 mm. Suggest attention to these at followup imaging. Tra Ma MD Brain MRI 02/16/17 0000 Signed Impressions: Service Date/Time: Thursday, February 16, 2017 13:44 - CONCLUSION: Atrophy and extensive white matter disease as well as micro-bleeds the route the cerebral hemispheres and cerebellum. Punctate foci of acute infarction are suspected within the bilateral frontal white matter as described above. Scott Garcia MD Abdomen/Pelvis CT 02/16/17 0000 Signed Impressions: Service Date/Time: Thursday, February 16, 2017 13:26 - CONCLUSION: 1. Diffuse body wall edema, bilateral effusions, pericardial effusion and lower lobe atelectasis and consolidation. 2. Atherosclerosis. Scott Garcia MD Abdomen X-Ray 02/15/17 0000 Signed Impressions: Service Date/Time: February 11:42 - CONCLUSION: Nonspecific abdomen appearance. Tra Garibay MD Head CT 02/07/17 1947 Signed Impressions: Service Date/Time: Tuesday, February 07, 2017 20:03 - CONCLUSION: No acute intracranial injury Tra Garibay MD Laboratory Test 02/23/17 05:47 White Blood Count 9.8 TH/MM3 Red Blood Count 3.12 MIL/MM3 Hemoglobin 9.2 GM/DL Hematocrit 27.5 % Mean Corpuscular Volume 88.2 FL Mean Corpuscular Hemoglobin 29.5 PG Mean Corpuscular Hemoglobin 33.4 % Concent Red Cell Distribution Width 15.1 % Platelet Count 347 TH/MM3 Mean Platelet Volume 8.9 FL Neutrophils (%) (Auto) 77.0 % Lymphocytes (%) (Auto) 8.1 % Monocytes (%) (Auto) 14.3 % Eosinophils (%) (Auto) 0.1 % Basophils (%) (Auto) 0.5 % Neutrophils # (Auto) 7.6 TH/MM3 Lymphocytes # (Auto) 0.8 TH/MM3 Monocytes # (Auto) 1.4 TH/MM3 Eosinophils # (Auto) 0.0 TH/MM3 Basophils # (Auto) 0.0 TH/MM3 CBC Comment DIFF FINAL Differential Comment Sodium Level 140 MEQ/L Potassium Level 3.7 MEQ/L Chloride Level 106 MEQ/L Carbon Dioxide Level 25.8 MEQ/L Anion Gap 8 MEQ/L Blood Urea Nitrogen 37 MG/DL Creatinine 1.55 MG/DL Estimat Glomerular Filtration 52 ML/MIN Rate Random Glucose 134 MG/DL Calcium Level 7.9 MG/DL Total Bilirubin 1.0 MG/DL Aspartate Amino Transf 58 U/L (AST/SGOT) Alanine Aminotransferase 21 U/L (ALT/SGPT) Alkaline Phosphatase 98 U/L Total Protein 6.9 GM/DL Albumin 2.0 GM/DL Random Vancomycin Level 9.0 COMMENT Date/Time Procedure Status Source Growth 02/21/17 14:05 Aerobic Blood Culture - Preliminary Resulted Blood Peripheral NO GROWTH IN 1 DAY 02/21/17 14:05 Anaerobic Blood Culture - Preliminary Resulted Blood Peripheral NO GROWTH IN 1 DAY Physical Examination HEENT: Normocephalic; atraumatic; no jaundice. CHEST: OETT to vent, CT right. Resp. even/unlabored CARDIAC: Irregular ABDOMEN: Soft, nondistended, nontender; no hepatosplenomegaly; bowel sounds are present in all four quadrants. EXTREMITIES: Mild generalized edema. RADIOCHEMICAL TECHNICIAN: Sedated on vent (Gabby Varela) Assessment and Plan Plan ASSESSMENT: - Dysphagia, FEN. Scheduled for tracheostomy today. GI consulted for PEG. The vehicle inspector is following and has recommended Jevity 1.5 at 50 ml/hr. Attempted to call Geraldine Morgan at [phone]. There was no answer and therefore I left message for her to return call. - Acute respiratory failure/PNA/Pleural effusion/Aspiration pneumonitis. Scheduled for tracheostomy at bedside today. - CDiff Colitis. Flagyl. 3 bms. - Atrial fibrillation, CHF, small pericardial effusion, acute systolic heart failure. BB - Acute metabolic encephalopathy, dementia, right SUPERVISOR MARBLE high grade stenosis. Per [facility] PLAN: - Plan for EGD with peg tube placement today - Obtain consents - NPO - Ancef conservation or heritage architect - Non Ferrous Material Handler recommends Jevity 1.5 at 50 ml/hr. - Pt seen and examined by Dr. Farley and myself and this note is written on his behalf (Gabby Varela) Physician Comments seen, examined agree with above (Angélica Farley MD) Gabby Varela Feb 23, 2017 11:13 Angélica Farley MD Mar 03, 2017 18:27
--- NOTE | 2017-02-23 11:22 | PD.PROCEDR ---
Procedure Note Procedure Procedure: Fiberoptic Bronchoscopy Diagnosis/Indication: Respiratory failure, unable to wean off the ventilator Consent: Informed consent obtained and a time out performed Anesthesia: Total 10 mg IV Versed, 250 g of fentanyl and $ mg IV Dilaudid given for pain control. Neuromuscular paralysis with rocuronium Description of the Procedure: The patient was sedated and mechanically ventilated, was placed on 100% FIO2 PRVC mode of ventilation. The fiberoptic bronchoscopy was inserted via endotracheal tube and the ETT was withdrawn slowly to 18 CM. The trachea, right and left mainstem bronchi, and sub- segmental bronchi were evaluated. The endobronchial anatomy was normal. Insertion of introducer needle, guidewire, followed by serial Blue Rhino dilation and tracheostomy placement was directly visualized on video bronchoscopy. (see separate tracheostomy procedure note from Dr. Zurita). After tracheostomy placement, position was confirmed by introducing the bronchoscope through the new trach and visualizing the main junie. The patient tolerated the procedure well with no hemodynamic instability or hypoxia. There were no immediate complications noted. EBL for bronchoscopy have was negligible. A chest x-ray has been ordered. I personally performed the procedure. Tamera Dutta MD Feb 23, 2017 11:22
--- NOTE | 2017-02-23 11:49 | HHI.CCPN ---
Subjective Remarks/Hospital Course Hospital Course: This is a 86yM who presented from home with altered mental status and end-stage dementia. His hospital course has been complicated by C. Diff and pneumonia for which he is on appropriate therapy. He has been noted to have xkodu-on-vamnqsa aspiration during this hospital stay and has been NPO. Today, a rapid response was called for acute respiratory distress and hypoxia. I was called by Dr. Velez at the rapid response. He believe this is an aspiration event given the patient's clinical history. I immediately went and evaluated the patient. He is labored and in distress. his spo2 is 93% on non-rebreather. He is also in what appears to be new-onset atrial fibrillation with RVR and a HR 160s. Brief review of the pertinent laboratory data demonstrate worsening acute kidney injury, worsening anion-gap metabolic acidosis. Critical care medicine is consulted to evaluate and manage his severe respiratory distress and afib RVR. Unfortunately, the patient is obtunded and cannot provide any additional history. 02/13: no clinical improvements. remains in multiorgan system failure. diltiazem drip weaned to off, but remains on phenylephrine. talked with nephrology who feel clinically, despite some element of JVD, that patient is clinically intravascularly hypovolemic and they recommend gentle ivf hydration, which I am ok with as a trial. mental status poor. kidney injury persists. palliative involved. apparently daughter is not health care surrogate legally, but has been making decisions in the outpatient setting. multiple disagreements within the family. appreciate palliative involvement. 02/14: Renal function continues to worsen and today 57/4.1. D/w Nephrology. If family wants everything done, will need to proceed with HD. Tmax 101.1. ID following 02/15: Remains critically ill, did not tolerate brief CPAP trial. CXR shows mod to large R pl effusion. MAXIMUM TEMPERATURE 100.5. Creatinine slightly improved with urine output more than 1.4 L 02/16: Patient remains intubated, lightly sedated.. Did not tolerate C-peptide yesterday due to tachypnea. CT of the chest shows moderately large right effusion plan for thoracentesis 02/17: Tmax 100.7. No bowel movement since 02/12. On sedation vacation withdrawals but does not follow commands. Tolerating tube feeds at goal. 4/16: Afebrile. One bowel movement overnight. Tolerating tube feeding. Placement of 10 [place] pigtail catheter with 600 cc likely transudative effusion. Tachycardic this AM. 02/19: Currently down for CT abdomen/pelvis with distended abdomen. Also MRA brain/neck with acute/subacute bifrontal CVA. Neurology consult pending. Will likely need tracheostomy. 02/20: Noted emesis last night [address] abdomen/pelvis unremarkable. Moderate gastric output. Started on Reglan. Positive BM. Subjective: 02/21: Afebrile. Tolerating trickle feeds. One bowel movement. Noted echocardiogram report yesterday. Discussed with Dr. Garcia - blood cultures 2, vancomycin. Reassess in a.m.. Attempting to obtain consent for tracheostomy with . 02/22: Neuro exam unchanged. Mental status will not permit extubation. UO adequate, creat improving. Tracheostomy tomorrow 02/23: Creat continues to improve, no change in mentation. Trach with Parminder today, GI consulted for PEG placement. Objective Vital Signs Date Time Temp Pulse Resp B/P Pulse Ox O2 Delivery O2 Flow Rate FiO2 02/23/17 10:00 102 02/23/17 08:00 35 02/23/17 08:00 98.7 18 170/85 96 Intake and Output 02/22/17 02/22/17 02/23/17 08:00 16:00 00:00 Intake Total 762 ml 1442 ml 657 ml Output Total 400 ml 530 ml 300 ml Balance 362 ml 912 ml 357 ml Result Diagram: 02/23/17 0547 02/23/17 0547 Imaging Last Impressions Chest X-Ray 02/21/17 0600 Signed Impressions: Service Date/Time: Tuesday, February 21, 2017 04:26 - CONCLUSION: Bilateral lower lobe consolidations. ET tube and NG tube in good position. Sanjay Watts MD Neck Magnetic Resonance Angiography 02/19/17 0000 Signed Impressions: Service Date/Time: Sunday, February 19, 2017 09:18 - CONCLUSION: 1. 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 Left vertebral emanates directly from the arch. 2. Otherwise, cervical vessels are all patent with no significant stenosis. Patient is slightly right vertebral dominant distally. Robbie Huggins MD Head Magnetic Resonance Angiography 02/19/17 0000 Signed Impressions: Service Date/Time: Sunday, February 19, 2017 09:18 - CONCLUSION: 1. 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 Intracranial vessels are otherwise patent. 2. No aneurysmal disease. 3. Anatomic variant of the [place] as above. Patient is right vertebral dominant. Robbie Huggins MD Chest CT 02/16/17 0000 Signed Impressions: Service Date/Time: Thursday, February 16, 2017 13:26 - CONCLUSION: 1. Moderate to large right and small left pleural effusion with associated compressive atelectasis. There additionally is airspace consolidation in the right lower lobe. 2. Small pericardial effusion. 3. There are 2 nodules in the right upper lobe measuring 5 mm and 10 mm. Suggest attention to these at followup imaging. Tra Ma MD Brain MRI 02/16/17 0000 Signed Impressions: Service Date/Time: Thursday, February 16, 2017 13:44 - CONCLUSION: Atrophy and extensive white matter disease as well as micro-bleeds the route the cerebral hemispheres and cerebellum. Punctate foci of acute infarction are suspected within the bilateral frontal white matter as described above. Scott Garcia MD Abdomen/Pelvis CT 02/16/17 0000 Signed Impressions: Service Date/Time: Thursday, February 16, 2017 13:26 - CONCLUSION: 1. Diffuse body wall edema, bilateral effusions, pericardial effusion and lower lobe atelectasis and consolidation. 2. Atherosclerosis. Scott Garcia MD Abdomen X-Ray 02/15/17 0000 Signed Impressions: Service Date/Time: February 11:42 - CONCLUSION: Nonspecific abdomen appearance. Tra Garibay MD Head CT 02/07/171946 Signed Impressions: Service Date/Time: Tuesday, February 07, 2017 20:03 - CONCLUSION: No acute intracranial injury Tra Garibay MD Objective Remarks GENERAL: 86-year-old [place] male, critically ill currently orotracheally intubated SKIN: Warm and dry. No rash HEAD: Atraumatic. Normocephalic. EYES: Pupils equal and round about 3-4 mm bilaterally and reactive. No scleral icterus. No injection or drainage. ENT: No nasal bleeding or discharge. Mucous membranes pink and moist. Oropharynx without erythema NECK: Trachea midline. Minimal JVD. CARDIOVASCULAR: Tachycardic, RR. S1, S2. No S4. Faint systolic murmur 2 out of 6 RESPIRATORY: Improved breath sounds/aeration throughout the right lung field since placement of pigtail catheter. Few crackles in bases bilaterally. No wheeze GASTROINTESTINAL: Abdomen protuberant. Nontender. Hypoactive bowel sounds are appreciated. MUSCULOSKELETAL: Extremities with trace to 1+ lower extremity pitting edema. No obvious deformities. NEUROLOGICAL: Arousable on sedation vacation but not following commands. Positive gag. Positive corneal reflex. 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 Daily sedation vacation CT head 02/07 negative for acute disease MRI brain 02/16 revealed increased fluid in the bilateral centrum semi-ovale and PV WM, remote basal ganglia infarcts bilaterally and PV WM. Punctuate micro- bleeds throughout. MRA brain 02/19 revealed left P2 segment COUNTING MACHINE OPERATOR high-grade stenosis MRI neck - 02/19 - Anatomical Variant Cir., [place]. Left vertebral takes off from aortic arch. Neurology consult Dr. Avalos appreciated. Noted echo 02/12 no vegetations. 02/19 revealed 2 x 4 mm mitral valve leaflet and tricuspid valve lateral leaflet likely vegetation. - See infectious disease Not a anticoagulation candidate per neurology due to micro-hemorrhages. Currently on aspirin 81 mg daily EEG 02/16 reveals moderate to severe encephalopathy. No epileptiform activity. Respiratory: Acute hypoxic respiratory failure Aspiration pneumonitis [place]-ob-xhybose aspiration Mod to large R effusion/small left pleural effusion Right upper lobe pulmonary nodules 5 and 10 mm. Recommend follow up CT in 3-6 months [facility] 16//1.11/11/34 -- vent bundle Bronchodilator therapy every 6 hours with albuterol every 2 hours for breakthrough -- HOB at 30 degrees -- wean fiO2 for goal spo2 > 90% CT chest 02/16 revealed moderate to large right pleural effusion and atelectasis/ small left pleural effusion. Status post placement of pigtail catheter right effusion 03/19. -40 cm. -80 ml SS overnight. Tracheostomy 02/[address] Zurita, mental status will not permit extubation Cardiovascular: Atrial Fibrillation with Rapid Ventricular Response- resolved. Sinus tachycardia Distributive shock-resolved Acute systolic heart failure Small pericardial effusion Echocardiogram 02/12 revealed EF 30-35%. Moderate TR. MARIA 53 mmHg. revealed EF 35%. Hypokinesis global. Small Mobile densities tricuspid and mitral valve ? vegetation question right MARIA 52 mmHg. -- Off Cardizem drip for HR control Home medications metoprolol 50 mg daily, losartan 100 mg daily and hydralazine 50 mg twice a day currently on hold. --Continue low-dose Lopressor 5 mill grams IV every 6 with holding parameters Renal: Acute Kidney Injury secondary to ATN secondary to hypoperfusion Bumex 1 mg IV q12 per nephrology has been discontinued Nephrology following. Renal function improving cr On free water 100 every 6 Zimmerman creat steadily improving FEN/GI: Acute protein calorie malnutrition- severe C.Difficile Colitis Diarrhea Acute on chronic Aspiration Constipation TF with Jevity 1.5 goal 60 cc an hour currently at 10 cc an hour. Advance to goal today. Colace twice a day/Senokot twice a day CT abdomen/pelvis revealed left kidney protrusion, bilateral pleural effusions and small pericardial effusion. Significant edema Repeat CT abdomen/pelvis with distended abdomen. Revealed right L1/left L3 transverse process fracture. Anasarca. Heme/ID: C. 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 Garcia following ABX per ID Discontinued Cefepime 02/21. Discontinue azithromycin 02/16, Continue Flagyl, for aspiration and C diff. Initiated vancomycin after blood cultures 2 drawn 02/21 for possible endocarditis tricuspid valve/mitral valve. Negative to date Pertinent cultures 02/07 - blood cultures 2 - no growth 02/08 - stool -- C. difficile positive 02/09 - blood cultures 2 - no growth 02/12 - urine - no growth 02/13 - sputum - no growth 02/15 - blood cultures 2 - no growth 02/18 - urine - no growth 02/21 - blood no growth to date Endocrine: Hyperglycemia of critical illness -- SSI, q6h, med scale Prophylaxis: SCDs, SQH held with micro-hemorrhages. Resume when clinically indicated, Protonix for GI prophylaxis Critical Care: Level 3. Trach today 02/23 Tamera Dutta MD Feb 23, 2017 11:49
[2017-02-23] MEDS: FREE WATER G-TUBE SCH ×3 (12:00→17:13)
[2017-02-23] MEDS ORDERED: VANCOMYCIN 1,000 MG/NS 250 ML IV ONE ×2 (12:00)
--- NOTE | 2017-02-23 12:43 | RADRPT ---
EXAM DATE/TIME: 02/23/2017 11:49 [facility] COMPARISON: CT ABDOMEN & PELVIS W/O CONTRAST, February 19, 2017, 17:42. CHEST SINGLE AP, February 23, 2017, 4:01. INDICATIONS : Post tracheostomy MEDICAL HISTORY : Bibasilar infiltrates.Sepsis. SURGICAL HISTORY : None. ENCOUNTER: Subsequent ACUITY: 4 - 6 days PAIN SCORE: Non-responsive. LOCATION: Bilateral chest FINDINGS: Bibasilar opacities are present may be due to a combination of consolidation and or pleural effusion. NG tube is present with tip in the stomach. Tracheostomy tube is present in satisfactory position. H eart and mediastinum are unremarkable for technique. CONCLUSION: Bibasilar opacities are present may be due to a combination of consolidation and or pleural effusion. Cheyanne Reveles MD on February 23, 2017 at 12:41 Board Certified Radiologist. This report was verified electronically.
--- NOTE | 2017-02-23 15:04 | HHI.NPPN ---
Subjective General Problems: Hypotension Renal Failure: Chronic, Acute Interval History Remains intubated, sedated. Renal function has improved. (Juliana Saravia) Review of Systems General General Remarks unable to obtain due to intubation/sedation (Juliana Saravia) Objective Data Data 02/22/17 02/23/17 19:00 07:00 Intake Total 1742 ml 511 ml Output Total 530 ml 600 ml Balance 1212 ml -89 ml IV Total 855 ml 315 ml Tube Feeding 167 ml 196 ml Tube Irrigant 120 ml Other 600 ml Output Urine Total 450 ml 600 ml Chest Tube Drainage Total 80 ml Bladder Scan Volume Amount 176 ml 176 ml # Bowel Movements 2 1 Vital Signs Date Time Temp Pulse Resp B/P Pulse Ox O2 Delivery O2 Flow Rate FiO2 02/23/17 12:15 100 100 02/23/17 12:00 98.7 100 18 122/72 96 02/23/17 12:00 115 02/23/17 12:00 35 02/23/17 11:00 100 100 02/23/17 10:00 102 02/23/17 08:00 35 02/23/17 08:00 98.7 105 18 170/85 96 02/23/17 08:00 105 02/23/17 07:52 100 100 02/23/17 06:00 100 02/23/17 04:16 98 35 02/23/17 04:00 98.3 108 18 180/86 96 02/23/17 04:00 35 02/23/17 04:00 100 02/23/17 02:00 97 02/23/17 01:01 100 35 02/23/17 00:00 35 02/23/17 00:00 98.9 97 16 158/94 96 02/23/17 00:00 97 02/22/17 22:00 35 02/22/17 22:00 100 02/22/17 22:00 98.8 100 20 162/93 96 02/22/17 20:11 99 35 02/22/17 20:00 108 02/22/17 18:00 100 02/22/17 16:00 102 02/22/17 16:00 97.9 102 18 139/80 98 02/22/17 16:00 35 02/22/17 15:35 35 02/22/17 15:34 99 35 (Juliana Saravia) -: 02/23/17 0547 02/23/17 0547 Imaging Last 72 hours Impressions Chest X-Ray 02/23/17 0600 Signed Impressions: Service Date/Time: Thursday, February 23, 2017 04:01 - CONCLUSION: Unchanged bibasilar infiltrates. Kaiser Valiente Jr., MD Chest X-Ray 02/23/17 0000 Signed Impressions: Service Date/Time: Thursday, February 23, 2017 11:49 - CONCLUSION: Bibasilar opacities are present may be due to a combination of consolidation and or pleural effusion. Cheyanne Reveles MD Chest X-Ray 02/22/17 0600 Signed Impressions: Service Date/Time: February 03:16 - CONCLUSION: Continue consolidation both lung bases right worse the left. Upper lungs are clear. ET tube in good position. Sanjay Watts MD Chest X-Ray 02/21/17 06 Signed Impressions: Service Date/Time: Tuesday, February 21, 2017 04:26 - CONCLUSION: Bilateral lower lobe consolidations. ET tube and NG tube in good position. Sanjay Watts MD Tubes & Lines: [place] Tubes & Lines Comment pig tail drain, chest tube R Drip Comment fentanyl, propofol (Juliana Saravia) Physical Exam General Appearance: No Acute Distress, Malnourished Appearance Remarks frail, elderly AAM intubated/sedated (Juliana Saravia) Eyes Eye Exam: Pupils Equal (Juliana Saravia) Throat Throat Exam: Oral Mucosa [place] & Moist Throat Remarks ETT, OG tube (Juliana Saravia) Pulmonary Resp Exam: Breath Sounds Equal, Crackles, Rhonchi Resp Remarks vented (Juliana Saravia) Cardiology CV Exam: Good Perfusion, Irregular, Tachycardia (Juliana Saravia) Gastrointestinal/Abdomen GI Exam: Non-Tender, Bowel Sounds Present, Positive Bowel Movement (Juliana Saravia) Musculoskeletal MS Exam: Joints Intact, Atrophy, Unable to Ambulate (Juliana Saravia) Integumentary Skin Exam: Clear, Warm, Dry, Intact (Juliana Saravia) Extremeties Extremities Exam: No Edema, Pedal Pulses Palpable (Juliana Saravia) Neurologic Neuro Exam: Unresponsive, Sedated (Juliana Saravia) VTE Prophylaxis Device: SCDs (Juliana Saravia) Assessment/Plan Assessment Summary: WILLIE/Acute Renal Failure Electrolyte Assessment: Hyponatremia Problem List: (1) Acute renal failure Plan: in a patient whose baseline creatinine was 1.7 in 2006 ATN from renal hypoperfusion renal function has improved good urine output IVF and diuretics have beens topped stopped. avoid nephrotoxins, renally dose medications when appropriate Monitor renal function. repeat phos in am, replace if needed (2) Encephalopathy Plan: multifactorial, has hx of dementia was septic and in acute hypoxic respiratory failure continue supportive measures EEG reviewed, (3) Dysphagia Plan: PEG planned trach today (4) Pneumonia Plan: likely aspiration related on ancef and flagyl ID following. vancomycin was stopped (5) Clostridium difficile infection Plan: IV changed to PO flagyl contact precautions Plan we will sign off at this time (Juliana Saravia) Plan patient was seen and examined. Renal function has improved, GFR at baseline. Please call if needed. (Mauro Dallas MD) Problem Qualifiers (1) Pneumonia: Qualified Code: J18.1 - Pneumonia of right lower lobe due to infectious organism Juliana Saravia Feb 23, 2017 15:04 Mauro Dalals MD Feb 26, 2017 10:42
--- NOTE | 2017-02-23 15:13 | HHI.IDPN ---
Subjective Subjective Remarks Notes reviewed D/W RN Temps ok On the vent , S/P trach Repeat echo 02/19 with vegetation in MV and TV All his BC are negative BP ok, not on pressors Has CT - serous drainage WBC continues to improve is an 86 y/o AAM (Herber by ) with Dementia who presented with worsening mentation and diagnosed with Pneumonia and Cdiff positive diarrhea. PM records from 2006 indicate no allergies no surgeries. ID following for PNA and Cdiff present on admission. Antibiotics Vancomycin Flagyl IV (cdiff and anaerobic coverage) Lines Line sites with no evidence of infection Past Medical History Dementia. Allergies: Coded Allergies: No Known Allergies (Verified , 11/22/06) UNOBTAINABLE (Unverified , 02/09/17) Objective . Vital Signs Date Time Temp Pulse Resp B/P Pulse Ox O2 Delivery O2 Flow Rate FiO2 02/23/17 12:15 100 100 02/23/17 12:00 98.7 100 18 122/72 96 02/23/17 12:00 115 02/23/17 12:00 35 02/23/17 11:00 100 100 02/23/17 10:00 102 02/23/17 08:00 35 02/23/17 08:00 98.7 105 18 170/85 96 02/23/17 08:00 105 02/23/17 07:52 100 100 02/23/17 06:00 100 02/23/17 04:16 98 35 02/23/17 04:00 98.3 108 18 180/86 96 02/23/17 04:00 35 02/23/17 04:00 100 02/23/17 02:00 97 02/23/17 01:01 100 35 02/23/17 00:00 35 02/23/17 00:00 98.9 97 16 158/94 96 02/23/17 00:00 97 02/22/17 22:00 35 02/22/17 22:00 100 02/22/17 22:00 98.8 100 20 162/93 96 02/22/17 20:11 99 35 02/22/17 20:00 108 02/22/17 18:00 100 02/22/17 16:00 102 02/22/17 16:00 97.9 102 18 139/80 98 02/22/17 16:00 35 02/22/17 15:35 35 02/22/17 15:34 99 35 02/22/17 02/22/17 02/23/17 15:00 23:00 07:00 Intake Total 1442 ml 657 ml 154 ml Output Total 530 ml 300 ml 300 ml Balance 912 ml 357 ml -146 ml IV Total 855 ml 161 ml 154 ml Tube Feeding 167 ml 196 ml Tube Irrigant 120 ml Other 300 ml 300 ml Output Urine Total 450 ml 300 ml 300 ml Chest Tube Drainage Total 80 ml Bladder Scan Volume Amount 176 ml 176 ml # Bowel Movements 2 1 . Laboratory Tests Test 02/22/17 02/23/17 06:09 05:47 White Blood Count 10.4 TH/MM3 9.8 TH/MM3 Red Blood Count 3.02 MIL/MM3 3.12 MIL/MM3 Hemoglobin 9.0 GM/DL 9.2 GM/DL Hematocrit 26.6 % 27.5 % Mean Corpuscular Volume 87.9 FL 88.2 FL Mean Corpuscular Hemoglobin 29.9 PG 29.5 PG Mean Corpuscular Hemoglobin 34.0 % 33.4 % Concent Red Cell Distribution Width 15.2 % 15.1 % Platelet Count 349 TH/MM3 347 TH/MM3 Mean Platelet Volume 8.5 FL 8.9 FL Neutrophils (%) (Auto) 77.1 % 77.0 % Lymphocytes (%) (Auto) 6.9 % 8.1 % Monocytes (%) (Auto) 15.2 % 14.3 % Eosinophils (%) (Auto) 0.2 % 0.1 % Basophils (%) (Auto) 0.6 % 0.5 % Neutrophils # (Auto) 8.0 TH/MM3 7.6 TH/MM3 Lymphocytes # (Auto) 0.7 TH/MM3 0.8 TH/MM3 Monocytes # (Auto) 1.6 TH/MM3 1.4 TH/MM3 Eosinophils # (Auto) 0.0 TH/MM3 0.0 TH/MM3 Basophils # (Auto) 0.1 TH/MM3 0.0 TH/MM3 CBC Comment DIFF FINAL DIFF FINAL Differential Comment Laboratory Tests Test 02/22/17 02/23/17 06:08 05:47 Sodium Level 142 MEQ/L 140 MEQ/L Potassium Level 3.8 MEQ/L 3.7 MEQ/L Chloride Level 106 MEQ/L 106 MEQ/L Carbon Dioxide Level 28.4 MEQ/L 25.8 MEQ/L Anion Gap 8 MEQ/L 8 MEQ/L Blood Urea Nitrogen 44 MG/DL 37 MG/DL Creatinine 1.69 MG/DL 1.55 MG/DL Estimat Glomerular Filtration 47 ML/MIN 52 ML/MIN Rate Random Glucose 110 MG/DL 134 MG/DL Calcium Level 7.7 MG/DL 7.9 MG/DL Phosphorus Level 2.2 MG/DL Magnesium Level 2.0 MG/DL Total Bilirubin 1.0 MG/DL Aspartate Amino Transf 58 U/L (AST/SGOT) Alanine Aminotransferase 21 U/L (ALT/SGPT) Alkaline Phosphatase 98 U/L Total Protein 6.9 GM/DL Albumin 2.0 GM/DL Microbiology Date/Time Procedure Status Source Growth 02/21/17 14:00 Aerobic Blood Culture - Preliminary Resulted Blood Peripheral NO GROWTH IN 2 DAYS 02/21/17 14:00 Anaerobic Blood Culture - Preliminary Resulted Blood Peripheral NO GROWTH IN 2 DAYS 02/21/17 14:05 Aerobic Blood Culture - Preliminary Resulted Blood Peripheral NO GROWTH IN 2 DAYS 02/21/17 14:05 Anaerobic Blood Culture - Preliminary Resulted Blood Peripheral NO GROWTH IN 2 DAYS Imaging Neck Magnetic Resonance Angiography 02/19/17 0000 Signed Impressions: Service Date/Time: Sunday, February 19, 2017 09:18 - CONCLUSION: 1. 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 Left vertebral emanates directly from the arch. 2. Otherwise, cervical vessels are all patent with no significant stenosis. Patient is slightly right vertebral dominant distally. Robbie Huggins MD Head Magnetic Resonance Angiography 02/19/17 0000 Signed Impressions: Service Date/Time: Sunday, February 19, 2017 09:18 - CONCLUSION: 1. 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 Intracranial vessels are otherwise patent. 2. No aneurysmal disease. 3. Anatomic variant of the [place] as above. Patient is right vertebral dominant. Robbie Huggins MD Chest X-Ray 02/19/17 Signed Impressions: Service Date/Time: Sunday, February 19, 2017 11:17 - CONCLUSION: No appreciable change in bilateral pleural effusions bibasilar consolidation and/or compressive collapse and probable mild case of pulmonary edema. Cheyanne Reveles MD Neck Magnetic Resonance Angiography 02/19/17 0000 Signed Impressions: Service Date/Time: Sunday, February 19, 2017 09:18 - CONCLUSION: 1. 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 Left vertebral emanates directly from the arch. 2. Otherwise, cervical vessels are all patent with no significant stenosis. Patient is slightly right vertebral dominant distally. Robbie Huggins MD Head Magnetic Resonance Angiography 02/19/17 0000 Signed Impressions: Service Date/Time: Sunday, February 19, 2017 09:18 - CONCLUSION: 1. 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 Intracranial vessels are otherwise patent. 2. No aneurysmal disease. 3. Anatomic variant of the [place] as above. Patient is right vertebral dominant. Robbie Huggins MD Chest X-Ray 02/19/17 0000 Signed Impressions: Service Date/Time: Sunday, February 19, 2017 11:17 - CONCLUSION: No appreciable change in bilateral pleural effusions bibasilar consolidation and/or compressive collapse and probable mild case of pulmonary edema. Cheyanne Reveles MD Chest X-Ray 02/17/17 0600 Signed Impressions: Service Date/Time: Friday, February 17, 2017 03:54 - CONCLUSION: 1. Bilateral lower lobe atelectasis versus pneumonia. Bilateral effusions. There has been no significant change when compared to the prior exam. Jorge Luis Pritchard MD Chest X-Ray 02/17/17 0000 Signed Impressions: Service Date/Time: Friday, February 17, 2017 17:56 - CONCLUSION: 1. Small caliber right chest tube present without significant pneumothorax. Basilar airspace disease slightly improved on right since exam from earlier today. Clarence Gross MD Chest X-Ray 02/16/17 0600 Signed Impressions: Service Date/Time: Thursday, February 16, 2017 04:06 - CONCLUSION: Improved aeration of the right lung compared to the prior exam. Stevie Fleming MD Chest X-Ray 02/15/17 0600 Signed Impressions: Service Date/Time: February 02:20 - CONCLUSION: Increasing density throughout the right hemithorax with moderate right-sided pleural effusion and probable right basilar atelectasis. Gregory Hoover MD Abdomen X-Ray 02/15/17 0000 Signed Impressions: Service Date/Time: February 11:42 - CONCLUSION: Nonspecific abdomen appearance. Tra Garibay MD Chest X-Ray 02/13/17 0600 Signed Impressions: Service Date/Time: Monday, February 13, 2017 04:07 - CONCLUSION: 1. Persistent right basilar consolidation and probable small pleural effusion. 2. Minimal density in the left retrocardiac region. Gregory Hoover MD Chest X-Ray 02/12/17 0000 Signed Impressions: Service Date/Time: Sunday, February 12, 2017 15:11 - CONCLUSION: Interval intubation. Diffuse right lung pleural-parenchymal opacity Tra Garibay MD Chest X-Ray 02/12/17 0000 Signed Impressions: Service Date/Time: Sunday, February 12, 2017 13:53 - CONCLUSION: Increasing right basilar opacity characteristic of a pleural effusion with associated volume loss and/or airspace consolidation. Tra Ma MD Last Impressions Chest X-Ray 02/09/17 0000 Signed Impressions: Service Date/Time: Thursday, February 09, 2017 12:49 - CONCLUSION: Increasing consolidative changes right lung base. Arya Horton MD FACR Head CT 02/07/171946 Signed Impressions: Service Date/Time: Tuesday, February 07, 2017 20:03 - CONCLUSION: No acute intracranial injury Tra Garibay MD Physical Exam GENERAL: Sedated on the vent. NAD SKIN: Warm and dry, no generalized rash. HEENT: [place] conjunctivae. No scleral icterus. No injection or drainage. Has OGT NECK: Trach in place, with blood drainage. Supple CARDIOVASCULAR: Regular S1S2 RESPIRATORY: Decreased BS, worse on L than R, CT on R GASTROINTESTINAL: Abdomen distended, bowel sounds are present, hypoactive. No reaction to palpation MUSCULOSKELETAL: Extremities without clubbing, cyanosis, or pedal edema. Hands edematous NEUROLOGICAL: Sedated PSYCH: Unable to assess LINE: PIV with no evidence of infection Assessment & Plan Remarks IMPRESSION Respiratory failure, due to worsening pneumonia, likely due to recurrent aspiration - S/P RX MV and TV vegetation on recent echo, all BC have been negative - ?GPC, ?GNR - initial echo negative, and this is his second echo that showed the vegetation Has R effusion, has CT in place Pneumonia present on admission: likely aspiration in setting of dementia. S/P Rx C diff positive, clinically resolved Ongoing aspiration. Dementia Acute metabolic encephalopathy Fevers: Concomitant antibiotics for Pneumonia ppting Cdiff, ongoing aspiration - temps better. Renal insufficiency, better Vomiting, better RECOMMENDATION Continue IV Vanco Stop flagyl Add GNR coverage Follow temps Monitor progress D/W Tricia Titus MD Feb 23, 2017 15:13
[2017-02-23] MEDS ORDERED: VANCOMYCIN INJ 1,500 MG in SODIUM CHLORID 0.9% 500 ML INJ 500 ML IV ONE (15:15)
[2017-02-23] MEDS: CEFEPIME INJ 2,000 MG in SODIUM CHLORIDE 0.9% INJ 100 ML IV SCH (16:00)
[2017-02-23] MEDS ORDERED: GELFOAM SIZE 100 TOPICAL ONE (16:15)
[2017-02-23] MEDS ORDERED: GELATIN 12 MM/7 MM FOAM TOPICAL ONE (16:15)
[2017-02-23] MEDS ORDERED: HYDROmorphone HCL PF 4 MG/ML VIAL IV PUSH ONE (17:00)
[2017-02-23] MEDS: fentaNYL DRIP 250 ML IV SCH (22:37)
[2017-02-24] VITALS (19 sets, daily range): BP systolic 102–168; BP diastolic 57–126; PULSE 71–102; RESP 16–20; TEMP 98.7–100.8; O2SAT 93–100
[2017-02-24] MEDS: CEFEPIME INJ 2,000 MG in SODIUM CHLORIDE 0.9% INJ 100 ML IV SCH ×2 (05:09→18:02)
[2017-02-24] MEDS: ARTIFICIAL TEARS OPTH SOLN 15 ML BTL EACH EYE SCH ×3 (05:10→21:59)
[2017-02-24] MEDS: METOPROLOL TARTRATE 5 MG/5 ML VIAL IV PUSH SCH ×4 (05:10→22:00)
[2017-02-24] MEDS: fentaNYL DRIP 250 ML IV SCH ×2 (05:11→14:48)
[2017-02-24] MEDS: FREE WATER G-TUBE SCH ×4 (05:25→17:40)
[2017-02-24] MEDS: CHLORHEXIDINE 0.12% (ORAL KIT) 15 ML CUP MT SCH ×2 (08:00→20:09)
[2017-02-24] MEDS ORDERED: NITROGLYCERIN 2% OINT 1 GM PACKET TOPICAL PRN (08:00)
[2017-02-24] MEDS ORDERED: LABETALOL HCL 100 MG/20 ML VIAL IV PUSH PRN (08:00)
[2017-02-24] MEDS: PROPOFOL 1000 MG/100 ML INJ 100 ML IV SCH ×2 (08:05→18:49)
--- NOTE | 2017-02-24 08:57 | HHI.IDPN ---
Subjective Subjective Remarks Notes reviewed One low grade temps overnight On the vent , S/P trach 02/23 Some blood at trach site Repeat echo 02/19 with vegetation in MV and TV All his BC are negative BP ok, not on pressors Has CT - serous drainage WBC continues to improve is an 86 y/o AAM ([place] by ) with Dementia who presented with worsening mentation and diagnosed with Pneumonia and Cdiff positive diarrhea. PM records from 2006 indicate no allergies no surgeries. ID following for PNA and Cdiff present on admission. Antibiotics Vancomycin Cefepime Lines Line sites with no evidence of infection Past Medical History Dementia. Allergies: Coded Allergies: No Known Allergies (Verified , 11/22/06) UNOBTAINABLE (Unverified , 02/09/17) Objective . Vital Signs Date Time Temp Pulse Resp B/P Pulse Ox O2 Delivery O2 Flow Rate FiO2 02/24/17 07:34 97 35 02/24/17 06:00 96 02/24/17 04:05 95 35 02/24/17 04:00 50 02/24/17 04:00 101 02/24/17 04:00 100.8 98 20 102/57 93 02/24/17 02:00 100 02/24/17 01:02 98 35 02/24/17 00:00 99.0 100 16 155/84 98 02/24/17 00:00 50 02/24/17 00:00 100 02/23/17 22:00 95 02/23/17 20:00 88 02/23/17 20:00 98.8 88 16 157/86 98 02/23/17 20:00 50 02/23/17 19:25 100 50 02/23/17 18:16 93 02/23/17 16:00 92 02/23/17 16:00 35 02/23/17 16:00 98.7 100 18 210/109 96 02/23/17 14:00 105 02/23/17 12:15 100 100 02/23/17 12:00 98.7 100 18 122/72 96 02/23/17 12:00 115 02/23/17 12:00 35 02/23/17 11:00 100 100 02/23/17 10:00 102 02/23/17 02/23/17 02/24/17 15:00 23:00 07:00 Intake Total 177 ml 43 ml 283 ml Output Total 350 ml 570 ml 330 ml Balance -173 ml -527 ml -47 ml IV Total 177 ml 43 ml 283 ml Tube Feeding 0 ml Other 0 ml Output Urine Total 350 ml 500 ml 300 ml Chest Tube Drainage Total 70 ml 30 ml Bladder Scan Volume Amount 176 ml 176 ml 176 ml 176 ml # Bowel Movements 1 . Laboratory Tests Test 02/23/17 05:47 White Blood Count 9.8 TH/MM3 Red Blood Count 3.12 MIL/MM3 Hemoglobin 9.2 GM/DL Hematocrit 27.5 % Mean Corpuscular Volume 88.2 FL Mean Corpuscular Hemoglobin 29.5 PG Mean Corpuscular Hemoglobin 33.4 % Concent Red Cell Distribution Width 15.1 % Platelet Count 347 TH/MM3 Mean Platelet Volume 8.9 FL Neutrophils (%) (Auto) 77.0 % Lymphocytes (%) (Auto) 8.1 % Monocytes (%) (Auto) 14.3 % Eosinophils (%) (Auto) 0.1 % Basophils (%) (Auto) 0.5 % Neutrophils # (Auto) 7.6 TH/MM3 Lymphocytes # (Auto) 0.8 TH/MM3 Monocytes # (Auto) 1.4 TH/MM3 Eosinophils # (Auto) 0.0 TH/MM3 Basophils # (Auto) 0.0 TH/MM3 CBC Comment DIFF FINAL Differential Comment Laboratory Tests Test 02/23/17 05:47 Sodium Level 140 MEQ/L Potassium Level 3.7 MEQ/L Chloride Level 106 MEQ/L Carbon Dioxide Level 25.8 MEQ/L Anion Gap 8 MEQ/L Blood Urea Nitrogen 37 MG/DL Creatinine 1.55 MG/DL Estimat Glomerular Filtration 52 ML/MIN Rate Random Glucose 134 MG/DL Calcium Level 7.9 MG/DL Total Bilirubin 1.0 MG/DL Aspartate Amino Transf 58 U/L (AST/SGOT) Alanine Aminotransferase 21 U/L (ALT/SGPT) Alkaline Phosphatase 98 U/L Total Protein 6.9 GM/DL Albumin 2.0 GM/DL Microbiology Date/Time Procedure Status Source Growth 02/21/17 14:00 Aerobic Blood Culture - Preliminary Resulted Blood Peripheral NO GROWTH IN 2 DAYS 02/21/17 14:00 Anaerobic Blood Culture - Preliminary Resulted Blood Peripheral NO GROWTH IN 2 DAYS 02/21/17 14:05 Aerobic Blood Culture - Preliminary Resulted Blood Peripheral NO GROWTH IN 2 DAYS 02/21/17 14:05 Anaerobic Blood Culture - Preliminary Resulted Blood Peripheral NO GROWTH IN 2 DAYS Imaging Chest X-Ray 02/23/17 0600 Signed Impressions: Service Date/Time: Thursday, February 23, 2017 04:01 - CONCLUSION: Unchanged bibasilar infiltrates. Kaiser Valiente Jr., MD Chest X-Ray 02/23/17 0000 Signed Impressions: Service Date/Time: Thursday, February 23, 2017 11:49 - CONCLUSION: Bibasilar opacities are present may be due to a combination of consolidation and or pleural effusion. Cheyanne Reveles MD Chest X-Ray 02/22/17 06 Signed Impressions: Service Date/Time: February 03:16 - CONCLUSION: Continue consolidation both lung bases right worse the left. Upper lungs are clear. ET tube in good position. Sanjay Watts MD Neck Magnetic Resonance Angiography 02/19/17 0000 Signed Impressions: Service Date/Time: Sunday, February 19, 2017 09:18 - CONCLUSION: 1. 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 Left vertebral emanates directly from the arch. 2. Otherwise, cervical vessels are all patent with no significant stenosis. Patient is slightly right vertebral dominant distally. Robbie Huggins MD Head Magnetic Resonance Angiography 02/19/17 0000 Signed Impressions: Service Date/Time: Sunday, February 19, 2017 09:18 - CONCLUSION: 1. 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 Intracranial vessels are otherwise patent. 2. No aneurysmal disease. 3. Anatomic variant of the [place] as above. Patient is right vertebral dominant. Robbie Huggins MD Chest X-Ray 02/19/17 0000 Signed Impressions: Service Date/Time: Sunday, February 19, 2017 11:17 - CONCLUSION: No appreciable change in bilateral pleural effusions bibasilar consolidation and/or compressive collapse and probable mild case of pulmonary edema. Cheyanne Reveles MD Neck Magnetic Resonance Angiography 02/19/17 0000 Signed Impressions: Service Date/Time: Sunday, February 19, 2017 09:18 - CONCLUSION: 1. 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 Left vertebral emanates directly from the arch. 2. Otherwise, cervical vessels are all patent with no significant stenosis. Patient is slightly right vertebral dominant distally. Robbie Huggins MD Head Magnetic Resonance Angiography 02/19/17 0000 Signed Impressions: Service Date/Time: Sunday, February 19, 2017 09:18 - CONCLUSION: 1. 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 Intracranial vessels are otherwise patent. 2. No aneurysmal disease. 3. Anatomic variant of the [place] as above. Patient is right vertebral dominant. Robbie Huggins MD Chest X-Ray 02/19/17 0000 Signed Impressions: Service Date/Time: Sunday, February 19, 2017 11:17 - CONCLUSION: No appreciable change in bilateral pleural effusions bibasilar consolidation and/or compressive collapse and probable mild case of pulmonary edema. Cheyanne Reveles MD Chest X-Ray 02/17/17 0600 Signed Impressions: Service Date/Time: Friday, February 17, 2017 03:54 - CONCLUSION: 1. Bilateral lower lobe atelectasis versus pneumonia. Bilateral effusions. There has been no significant change when compared to the prior exam. Jorge Luis Pritchard MD Chest X-Ray 02/17/17 0000 Signed Impressions: Service Date/Time: Friday, February 17, 2017 17:56 - CONCLUSION: 1. Small caliber right chest tube present without significant pneumothorax. Basilar airspace disease slightly improved on right since exam from earlier today. Clarence Gross MD Chest X-Ray 02/16/17 0600 Signed Impressions: Service Date/Time: Thursday, February 16, 2017 04:06 - CONCLUSION: Improved aeration of the right lung compared to the prior exam. Stevie Fleming MD Chest X-Ray 02/15/17 0600 Signed Impressions: Service Date/Time: February 02:20 - CONCLUSION: Increasing density throughout the right hemithorax with moderate right-sided pleural effusion and probable right basilar atelectasis. Gregory Hoover MD Abdomen X-Ray 02/15/17 0000 Signed Impressions: Service Date/Time: February 11:42 - CONCLUSION: Nonspecific abdomen appearance. Tra Garibay MD Chest X-Ray 02/13/17 0600 Signed Impressions: Service Date/Time: Monday, February 13, 2017 04:07 - CONCLUSION: 1. Persistent right basilar consolidation and probable small pleural effusion. 2. Minimal density in the left retrocardiac region. Gregory Hoover MD Chest X-Ray 02/12/17 0000 Signed Impressions: Service Date/Time: Sunday, February 12, 2017 15:11 - CONCLUSION: Interval intubation. Diffuse right lung pleural-parenchymal opacity Tra Garibay MD Chest X-Ray 02/12/17 0000 Signed Impressions: Service Date/Time: Sunday, February 12, 2017 13:53 - CONCLUSION: Increasing right basilar opacity characteristic of a pleural effusion with associated volume loss and/or airspace consolidation. Tra Ma MD Last Impressions Chest X-Ray 02/09/17 0000 Signed Impressions: Service Date/Time: Thursday, February 09, 2017 12:49 - CONCLUSION: Increasing consolidative changes right lung base. Arya Horton MD FACR Head CT 02/07/171946 Signed Impressions: Service Date/Time: Tuesday, February 07, 2017 20:03 - CONCLUSION: No acute intracranial injury Tra Garibay MD Physical Exam GENERAL: Sedated on the vent. NAD SKIN: Warm and dry, no generalized rash. HEENT: [place] conjunctivae. No scleral icterus. No injection or drainage. Has OGT NECK: Trach in place, with blood drainage. Supple CARDIOVASCULAR: Regular S1S2 RESPIRATORY: Decreased BS, worse on L than R, CT on R GASTROINTESTINAL: Abdomen less distended, bowel sounds are present, hypoactive. Grimace during palpation MUSCULOSKELETAL: Extremities without clubbing, cyanosis, or pedal edema. Hands edematous NEUROLOGICAL: Sedated PSYCH: Unable to assess LINE: PIV with no evidence of infection Assessment & Plan Remarks IMPRESSION Respiratory failure,S/P trach - S/P RX Aspiration, S/P Rx MV and TV vegetation on recent echo, all BC have been negative - ?GPC, ?GNR - initial echo negative, and this is his second echo that showed the vegetation Has R effusion, has CT in place Pneumonia present on admission: likely aspiration in setting of dementia. S/P Rx C diff positive, clinically resolved Ongoing aspiration. Dementia Acute metabolic encephalopathy Fevers: Concomitant antibiotics for Pneumonia ppting Cdiff, ongoing aspiration - temps better. Renal insufficiency, better Vomiting, better RECOMMENDATION Continue IV Vanco Continue Cefepime Monitor temps Monitor progress Follow C/S Tricia Garcia MD Feb 24, 2017 08:57
[2017-02-24] MEDS: ASPIRIN 81 MG CHEW TAB CHEW SCH (09:00)
[2017-02-24] MEDS: SENNOSIDES SYRUP 8.8 MG/5 ML CUP PO SCH ×3 (09:00→20:36)
[2017-02-24] MEDS: DOCUSATE SODIUM 100 MG/10 ML UDC PO SCH ×3 (09:00→20:35)
[2017-02-24] MEDS: LACTOBACILLUS ACIDOPHILUS TAB PO SCH ×3 (09:00→17:41)
[2017-02-24] MEDS: INSULIN NovoLIN REGULAR SUPPLEMENTAL SCALE SQ SCH ×2 (12:00→17:47)
[2017-02-24] MEDS ORDERED: VANCOMYCIN 1,000 MG/NS 250 ML IV ONE ×2 (12:00)
--- NOTE | 2017-02-24 12:11 | HHI.NPPN ---
Subjective General Problems: Hypotension Renal Failure: Chronic, Acute Additional Remarks Patient remain intubated and sedated. Review of Systems General General Remarks unable to obtain due to intubation/sedation Objective Data Data 02/23/17 02/24/17 19:00 07:00 Intake Total 177 ml 326 ml Output Total 350 ml 900 ml Balance -173 ml -574 ml IV Total 177 ml 326 ml Tube Feeding 0 ml Other 0 ml Output Urine Total 350 ml 800 ml Chest Tube Drainage Total 100 ml Bladder Scan Volume Amount 176 ml 176 ml 176 ml 176 ml # Bowel Movements 1 Vital Signs Date Time Temp Pulse Resp B/P Pulse Ox O2 Delivery O2 Flow Rate FiO2 02/24/17 07:34 97 35 02/24/17 06:00 96 02/24/17 04:05 95 35 02/24/17 04:00 50 02/24/17 04:00 101 02/24/17 04:00 100.8 98 20 102/57 93 02/24/17 02:00 100 02/24/17 01:02 98 35 02/24/17 00:00 99.0 100 16 155/84 98 02/24/17 00:00 50 02/24/17 00:00 100 02/23/17 22:00 95 02/23/17 20:00 88 02/23/17 20:00 98.8 88 16 157/86 98 02/23/17 20:00 50 02/23/17 19:25 100 50 02/23/17 18:16 93 02/23/17 16:00 92 02/23/17 16:00 35 02/23/17 16:00 98.7 100 18 210/109 96 02/23/17 14:00 105 02/23/17 12:15 100 100 -: 02/23/17 0547 02/23/17 0547 Tubes & Lines: [place] Tubes & Lines Comment pig tail drain, chest tube R Drip Comment fentanyl, propofol Physical Exam General Appearance: Malnourished Appearance Remarks Intubated and sedated. Eyes Eye Exam: Pupils Equal Throat Throat Exam: Oral Mucosa [place] & Moist Pulmonary Resp Exam: Breath Sounds Equal, Crackles, Rhonchi Cardiology CV Exam: Irregular, Tachycardia Gastrointestinal/Abdomen GI Exam: Non-Tender, Bowel Sounds Present, Positive Bowel Movement Musculoskeletal MS Exam: Atrophy Integumentary Skin Exam: Clear, Warm, Dry, Intact Extremeties Extremities Exam: Trace Edema Neurologic Neuro Exam: Unresponsive, Sedated VTE Prophylaxis Device: SCDs Assessment/Plan Assessment Summary: WILLIE/Acute Renal Failure Electrolyte Assessment: Hyponatremia Problem List: (1) Acute renal failure Plan: in a patient whose baseline creatinine was 1.7 in 2006 ATN from renal hypoperfusion renal function has improved good urine output IVF and diuretics have beens topped stopped. avoid nephrotoxins, renally dose medications when appropriate Creatinine is better, now 1`.5. Continue antibiotics. (2) Encephalopathy Plan: multifactorial, has hx of dementia was septic and in acute hypoxic respiratory failure continue supportive measures EEG reviewed, (3) Dysphagia Plan: PEG planned trach today (4) Pneumonia Plan: likely aspiration related on ancef and flagyl ID following. vancomycin was stopped (5) Clostridium difficile infection Plan: IV changed to PO flagyl contact precautions Problem Qualifiers (1) Pneumonia: Qualified Code: J18.1 - Pneumonia of right lower lobe due to infectious organism Xochitl Means MD Feb 24, 2017 12:11
[2017-02-24] MEDS: METOCLOPRAMIDE HCL 10 MG/2 ML VIAL IV PUSH SCH ×2 (13:44→22:00)
--- NOTE | 2017-02-24 13:50 | HHI.CCPN ---
Subjective Remarks/Hospital Course This is a 86yM who presented from home with altered mental status and end-stage dementia. His hospital course has been complicated by C. Diff and pneumonia for which he is on appropriate therapy. He has been noted to have mfegu-re-zufoevl aspiration during this hospital stay and has been NPO. Today, a rapid response was called for acute respiratory distress and hypoxia. I was called by Dr. Velez at the rapid response. He believe this is an aspiration event given the patient's clinical history. I immediately went and evaluated the patient. He is labored and in distress. his spo2 is 93% on non-rebreather. He is also in what appears to be new-onset atrial fibrillation with RVR and a HR 160s. Brief review of the pertinent laboratory data demonstrate worsening acute kidney injury, worsening anion-gap metabolic acidosis. Critical care medicine is consulted to evaluate and manage his severe respiratory distress and afib RVR. Unfortunately, the patient is obtunded and cannot provide any additional history. 02/13: no clinical improvements. remains in multiorgan system failure. diltiazem drip weaned to off, but remains on phenylephrine. talked with nephrology who feel clinically, despite some element of JVD, that patient is clinically intravascularly hypovolemic and they recommend gentle ivf hydration, which I am ok with as a trial. mental status poor. kidney injury persists. palliative involved. apparently daughter is not health care surrogate legally, but has been making decisions in the outpatient setting. multiple disagreements within the family. appreciate palliative involvement. 02/14: Renal function continues to worsen and today 57/4.1. D/w Nephrology. If family wants everything done, will need to proceed with HD. Tmax 101.1. ID following 02/15: Remains critically ill, did not tolerate brief CPAP trial. CXR shows mod to large R pl effusion. MAXIMUM TEMPERATURE 100.5. Creatinine slightly improved with urine output more than 1.4 L 02/16: Patient remains intubated, lightly sedated.. Did not tolerate C-peptide yesterday due to tachypnea. CT of the chest shows moderately large right effusion plan for thoracentesis 02/17: Tmax 100.7. No bowel movement since 02/12. On sedation vacation withdrawals but does not follow commands. Tolerating tube feeds at goal. 02/18: Afebrile. One bowel movement overnight. Tolerating tube feeding. Placement of 10 Wolof pigtail catheter with 600 cc likely transudative effusion. Tachycardic this AM. 02/19: Currently down for CT abdomen/pelvis with distended abdomen. Also MRA brain/neck with acute/subacute bifrontal CVA. Neurology consult pending. Will likely need tracheostomy. 02/20: Noted emesis last night [address] abdomen/pelvis unremarkable. Moderate gastric output. Started on Reglan. Positive BM. 02/21: Afebrile. Tolerating trickle feeds. One bowel movement. Noted echocardiogram report yesterday. Discussed with Dr. Garcia - blood cultures 2, vancomycin. Reassess in a.m.. Attempting to obtain consent for tracheostomy with . 02/22: Neuro exam unchanged. Mental status will not permit extubation. UO adequate, creat improving. Tracheostomy tomorrow 02/23: Creat continues to improve, no change in mentation. Trach with Parminder today, GI consulted for PEG placement. Subjective: 02/24: Afebrile. Status post tracheostomy by Dr. Zurita yesterday. Unable to replace gastric tube secondary to bleeding. Plan for PEG on Sunday. Objective Vital Signs Date Time Temp Pulse Resp B/P Pulse Ox O2 Delivery O2 Flow Rate FiO2 02/24/17 11:45 98 35 02/24/17 08:00 99.8 102 16 168/126 Intake and Output 02/23/17 02/23/17 02/24/17 08:00 16:00 00:00 Intake Total 154 ml 177 ml 43 ml Output Total 300 ml 350 ml 570 ml Balance -146 ml -173 ml -527 ml Result Diagram: 02/23/17 0547 02/23/17 0547 Other Results Microbiology Date/Time Procedure Status Source Growth 02/21/17 14:05 Aerobic Blood Culture - Preliminary Resulted Blood Peripheral NO GROWTH IN 3 DAYS 02/21/17 14:05 Anaerobic Blood Culture - Preliminary Resulted Blood Peripheral NO GROWTH IN 3 DAYS Imaging Last Impressions Chest X-Ray 02/23/17 0600 Signed Impressions: Service Date/Time: Thursday, February 23, 2017 04:01 - CONCLUSION: Unchanged bibasilar infiltrates. Kaiser Valiente Jr., MD Neck Magnetic Resonance Angiography 02/19/17 0000 Signed Impressions: Service Date/Time: Sunday, February 19, 2017 09:18 - CONCLUSION: 1. 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 Left vertebral emanates directly from the arch. 2. Otherwise, cervical vessels are all patent with no significant stenosis. Patient is slightly right vertebral dominant distally. Robbie Huggins MD Head Magnetic Resonance Angiography 02/19/17 0000 Signed Impressions: Service Date/Time: Sunday, February 19, 2017 09:18 - CONCLUSION: 1. 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 Intracranial vessels are otherwise patent. 2. No aneurysmal disease. 3. Anatomic variant of the elem of [place] as above. Patient is right vertebral dominant. Rbobie Huggins MD Chest CT 02/16/17 0000 Signed Impressions: Service Date/Time: Thursday, February 16, 2017 13:26 - CONCLUSION: 1. Moderate to large right and small left pleural effusion with associated compressive atelectasis. There additionally is airspace consolidation in the right lower lobe. 2. Small pericardial effusion. 3. There are 2 nodules in the right upper lobe measuring 5 mm and 10 mm. Suggest attention to these at followup imaging. Tra Ma MD Brain MRI 02/16/17 0000 Signed Impressions: Service Date/Time: Thursday, February 16, 2017 13:44 - CONCLUSION: Atrophy and extensive white matter disease as well as micro-bleeds the route the cerebral hemispheres and cerebellum. Punctate foci of acute infarction are suspected within the bilateral frontal white matter as described above. Scott Garcia MD Abdomen/Pelvis CT 02/16/17 0000 Signed Impressions: Service Date/Time: Thursday, February 16, 2017 13:26 - CONCLUSION: 1. Diffuse body wall edema, bilateral effusions, pericardial effusion and lower lobe atelectasis and consolidation. 2. Atherosclerosis. Scott Garcia MD Abdomen X-Ray 02/15/17 0000 Signed Impressions: Service Date/Time: February 11:42 - CONCLUSION: Nonspecific abdomen appearance. Tra Garibay MD Head CT 02/07/171946 Signed Impressions: Service Date/Time: Tuesday, February 07, 2017 20:03 - CONCLUSION: No acute intracranial injury Tra Garibay MD Objective Remarks GENERAL: 86-year-old [place] male, critically ill currently on ventilator via tracheostomy SKIN: Warm and dry. No rash HEAD: Atraumatic. Normocephalic. EYES: Pupils equal and round about 3-4 mm bilaterally and reactive. No scleral icterus. No injection or drainage. ENT: No nasal bleeding or discharge. Mucous membranes pink and moist. Oropharynx without erythema. Tracheostomy site is clean dry and intact with no drainage NECK: Trachea midline. Minimal JVD. CARDIOVASCULAR: RRR. S1, S2. No S4. Faint systolic murmur 2 out of 6 RESPIRATORY: Improved breath sounds/aeration throughout the right lung field since placement of pigtail catheter. Few crackles in bases bilaterally. No wheeze GASTROINTESTINAL: Abdomen protuberant. Nontender. Hypoactive bowel sounds are appreciated. MUSCULOSKELETAL: Extremities with trace to 1+ lower extremity pitting edema. No obvious deformities. NEUROLOGICAL: Arousable on sedation vacation but not following commands. Positive gag. Positive corneal reflex. Moves all 4 extremity spontaneously and withdrawal Procedures None A/P Assessment and Plan Neuro/Psych: Acute metabolic encephalopathy End-stage dementia Right CHIEF DEPUTY SHERIFF high-grade stenosis Currently On propofol at 30 mg/kg/m and Fentanyl drip at 250 is an hour for sedation and analgesia while intubated Goal of RASS -2. Daily sedation vacation CT head 02/07 negative for acute disease MRI brain 02/16 revealed increased fluid in the bilateral centrum semi-ovale and PV WM, remote basal ganglia infarcts bilaterally and PV WM. Punctuate micro- bleeds throughout. MRA brain 02/19 revealed left P2 segment CHIEF DEPUTY SHERIFF high-grade stenosis MRI neck - 02/19 - Anatomical Variant Cir., [place]. Left vertebral takes off from aortic arch. Neurology consult Dr. Avalos appreciated. Noted echo 02/12 no vegetations. 02/19 revealed 2 x 4 mm mitral valve leaflet and tricuspid valve lateral leaflet likely vegetation. - See infectious disease Not a anticoagulation candidate per neurology due to micro-hemorrhages. Currently on aspirin 81 mg daily EEG 02/16 reveals moderate to severe encephalopathy. No epileptiform activity. Respiratory: Acute hypoxic respiratory failure Aspiration pneumonitis [id number]-wn-[id number] aspiration Mod to large R effusion/small left pleural effusion Right upper lobe pulmonary nodules 5 and 10 mm. Recommend follow up CT in 3-6 months [facility] 16/1.11/11/34 -- vent bundle Bronchodilator therapy every 6 hours with albuterol every 2 hours for breakthrough -- HOB at 30 degrees -- wean fiO2 for goal spo2 > 90% CT chest 02/16 revealed moderate to large right pleural effusion and atelectasis/ small left pleural effusion. Status post placement of pigtail catheter right effusion 03/19. -40 cm. -100 ml SS overnight. Tracheostomy 02/[address] Zurita, Cardiovascular: Atrial Fibrillation with Rapid Ventricular Response- resolved. Sinus tachycardia Distributive shock-resolved Acute systolic heart failure Small pericardial effusion Echocardiogram 02/12 revealed EF 30-35%. Moderate TR. MARIA 53 mmHg. revealed EF 35%. Hypokinesis global. Small Mobile densities tricuspid and mitral valve ? vegetation question right MARIA 52 mmHg. -- Off Cardizem drip for HR control Home medications metoprolol 50 mg daily, losartan 100 mg daily and hydralazine 50 mg twice a day currently on hold. --Continue low-dose Lopressor 5 mill grams IV every 6 with holding parameters Renal: Acute Kidney Injury secondary to ATN secondary to hypoperfusion Bumex 1 mg IV q12 per nephrology has been discontinued Nephrology following. Renal function improving cr On free water 100 every 6 currently held while her tube Zimmerman creat steadily improving FEN/GI: Acute protein calorie malnutrition- severe C.Difficile Colitis Diarrhea Acute on chronic Aspiration Constipation TF with Jevity 1.5 goal 60 cc an hour currently off secondary her tube Colace twice a day/Senokot twice a day CT abdomen/pelvis revealed left kidney protrusion, bilateral pleural effusions and small pericardial effusion. Significant edema Repeat CT abdomen/pelvis with distended abdomen. Revealed right L1/left L3 transverse process fracture. Anasarca. PEG tube on for Sunday Heme/ID: C. 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 Garcia following ABX per ID Discontinued Cefepime 02/21. Discontinue azithromycin 02/16, Continue Flagyl, for aspiration and C diff. Initiated vancomycin and cefepime after blood cultures 2 drawn 02/21 for possible endocarditis tricuspid valve/mitral valve. Negative to date Pertinent cultures 02/07 - blood cultures 2 - no growth 02/08 - stool -- C. difficile positive 02/09 - blood cultures 2 - no growth 02/12 - urine - no growth 02/13 - sputum - no growth 02/15 - blood cultures 2 - no growth 02/18 - urine - no growth 02/21 - blood no growth to date Endocrine: Hyperglycemia of critical illness -- SSI, q6h, med scale Prophylaxis: SCDs, SQH held with micro-hemorrhages. Resume when clinically indicated, Protonix for GI prophylaxis Critical Care: Level 3. Gerry Mike MD Feb 24, 2017 13:50
--- NOTE | 2017-02-24 16:56 | HHI.PR ---
Subjective Subjective Notes NEVIN, pt on vent Objective Vitals/I&O Vital Signs Date Time Temp Pulse Resp B/P Pulse Ox O2 Delivery O2 Flow Rate FiO2 02/24/17 16:02 98 35 02/24/17 16:00 99.1 83 16 164/97 Labs Laboratory Tests Test 02/24/17 05:08 Random Vancomycin Level 13.8 Date/Time Procedure Status Source Growth 02/21/17 14:05 Aerobic Blood Culture - Preliminary Resulted Blood Peripheral NO GROWTH IN 3 DAYS 02/21/17 14:05 Anaerobic Blood Culture - Preliminary Resulted Blood Peripheral NO GROWTH IN 3 DAYS Narrative Exam trach site clean, intact, functioning well A/P Assessment and Plan 86yo m s/p trach, postop trach site clean, no further bleeding, will sign off. Arya Paulson MD Feb 24, 2017 16:56
[2017-02-24] MEDS: DEXTROSE 50% IN WATER 50 ML VIAL(D50) IV PUSH PRN ×2 (18:01→18:16)
[2017-02-24 18:16] LABS: AUTOMATED NEUTROPHIL # 5.2 TH/MM3 (1.8-7.7); BASOPHIL # 0.1 TH/MM3 (0-0.2); BASOPHIL % 1.3 % (0.0-2.0); EOSINOPHIL # 0.1 TH/MM3 (0-0.4); EOSINOPHIL % 0.8 % (0.0-4.0); HEMATOCRIT 28.5 % (39.0-51.0); HEMO FLAGS DIFF FINAL; LYMPH % 19.8 % (9.0-44.0); LYMPHOCYTE # 1.7 TH/MM3 (1.0-4.8); MEAN CELL VOLUME 92.7 FL (80.0-100.0); MEAN CORPUSCULAR HEMOGLOBIN 29.9 PG (27.0-34.0); MEAN CORPUSCULAR HGB CONC 32.3 % (32.0-36.0); MONO % 18.9 % (0.0-8.0); NEUT % 59.2 % (16.0-70.0); PLATELET COUNT 248 TH/MM3 (150-450); RED BLOOD COUNT 3.08 MIL/MM3 (4.50-5.90); RED CELL DISTRIBUTION WIDTH 15.3 % (11.6-17.2); WHITE BLOOD COUNT 8.8 TH/MM3 (4.0-11.0)
[2017-02-24] MEDS: DEXT 5%-NACL 0.9% 1000 ML INJ 1,000 ML IV SCH (18:16)
[2017-02-24 18:48] LABS: BICARBONATE 24.5 MEQ/L (21.0-32.0); MAGNESIUM 2.1 MG/DL (1.5-2.5); POTASSIUM 4.1 MEQ/L (3.5-5.1)
[2017-02-25] VITALS (19 sets, daily range): BP systolic 125–187; BP diastolic 66–98; PULSE 66–88; RESP 16; TEMP 98.2–99.2; O2SAT 94–100
[2017-02-25] MEDS: fentaNYL DRIP 250 ML IV SCH ×2 (01:45→21:42)
[2017-02-25] MEDS: PROPOFOL 1000 MG/100 ML INJ 100 ML IV SCH ×3 (01:45→21:42)
[2017-02-25] MEDS: CEFEPIME INJ 2,000 MG in SODIUM CHLORIDE 0.9% INJ 100 ML IV SCH ×2 (03:48→16:00)
[2017-02-25] MEDS: METOPROLOL TARTRATE 5 MG/5 ML VIAL IV PUSH SCH ×4 (03:49→21:58)
[2017-02-25] MEDS: INSULIN NovoLIN REGULAR SUPPLEMENTAL SCALE SQ SCH ×4 (05:53→18:00)
[2017-02-25] MEDS: DEXT 5%-NACL 0.9% 1000 ML INJ 1,000 ML IV SCH ×3 (05:55→18:59)
[2017-02-25] MEDS: METOCLOPRAMIDE HCL 10 MG/2 ML VIAL IV PUSH SCH ×3 (05:55→21:00)
[2017-02-25] MEDS: ARTIFICIAL TEARS OPTH SOLN 15 ML BTL EACH EYE SCH ×3 (05:56→21:01)
[2017-02-25] MEDS: FREE WATER G-TUBE SCH ×5 (05:56→21:49)
[2017-02-25 06:15] LABS: HEMATOCRIT 25.1 % (39.0-51.0); MEAN CELL VOLUME 88.6 FL (80.0-100.0); MEAN CORPUSCULAR HEMOGLOBIN 30.5 PG (27.0-34.0); MEAN CORPUSCULAR HGB CONC 34.5 % (32.0-36.0); PLATELET COUNT 303 TH/MM3 (150-450); RED BLOOD COUNT 2.84 MIL/MM3 (4.50-5.90); RED CELL DISTRIBUTION WIDTH 15.1 % (11.6-17.2); REVIEW FLAG FINAL; WHITE BLOOD COUNT 7.1 TH/MM3 (4.0-11.0)
[2017-02-25 06:25] LABS: POTASSIUM 3.5 MEQ/L (3.5-5.1)
[2017-02-25] MEDS: CHLORHEXIDINE 0.12% (ORAL KIT) 15 ML CUP MT SCH ×2 (08:00→20:49)
--- NOTE | 2017-02-25 08:51 | HHI.IDPN ---
Subjective Subjective Remarks Notes reviewed Temps better overnight On the vent , S/P trach 02/23 Repeat echo 02/19 with vegetation in MV and TV All his BC are negative BP ok, not on pressors Has CT - serous drainage WBC normal Creatinine improving is an 86 y/o AAM ([place] by ) with Dementia who presented with worsening mentation and diagnosed with Pneumonia and Cdiff positive diarrhea. PM records from 2006 indicate no allergies no surgeries. ID following for PNA and Cdiff present on admission. Antibiotics Vancomycin Cefepime Lines Line sites with no evidence of infection Past Medical History Dementia. Allergies: Coded Allergies: No Known Allergies (Verified , 11/22/06) UNOBTAINABLE (Unverified , 02/09/17) Objective . Vital Signs Date Time Temp Pulse Resp B/P Pulse Ox O2 Delivery O2 Flow Rate FiO2 02/25/17 07:49 100 35 02/25/17 06:00 73 02/25/17 04:03 94 35 02/25/17 04:00 98.7 66 16 144/72 100 02/25/17 04:00 66 02/25/17 04:00 35 02/25/17 02:00 77 02/25/17 01:02 100 35 02/25/17 00:00 98.9 80 16 187/98 100 02/25/17 00:00 35 02/25/17 00:00 80 02/24/17 22:03 100 35 02/24/17 22:00 71 02/24/17 20:00 71 02/24/17 20:00 99.4 71 16 137/76 100 02/24/17 20:00 35 02/24/17 19:02 100 35 02/24/17 18:00 97 02/24/17 16:02 98 35 02/24/17 16:00 99.1 83 16 164/97 98 02/24/17 16:00 83 02/24/17 16:00 35 02/24/17 14:00 90 02/24/17 12:00 85 02/24/17 12:00 35 02/24/17 12:00 98.7 85 17 130/77 97 02/24/17 11:45 98 35 02/24/17 10:00 86 02/24/17 02/24/17 02/25/17 15:00 23:00 07:00 Intake Total 1359 ml 1080 ml 911 ml Output Total 415 ml 275 ml 175 ml Balance 944 ml 805 ml 736 ml IV Total 1359 ml 1080 ml 911 ml Tube Feeding 0 ml 0 ml Output Urine Total 375 ml 275 ml 175 ml Chest Tube Drainage Total 40 ml 0 ml 0 ml # Bowel Movements 0 0 . Laboratory Tests Test 02/24/17 02/25/17 18:03 05:45 White Blood Count 8.8 TH/MM3 7.1 TH/MM3 Red Blood Count 3.08 MIL/MM3 2.84 MIL/MM3 Hemoglobin 9.2 GM/DL 8.7 GM/DL Hematocrit 28.5 % 25.1 % Mean Corpuscular Volume 92.7 FL 88.6 FL Mean Corpuscular Hemoglobin 29.9 PG 30.5 PG Mean Corpuscular Hemoglobin 32.3 % 34.5 % Concent Red Cell Distribution Width 15.3 % 15.1 % Platelet Count 248 TH/MM3 303 TH/MM3 Mean Platelet Volume 8.1 FL 9.8 FL Neutrophils (%) (Auto) 59.2 % Lymphocytes (%) (Auto) 19.8 % Monocytes (%) (Auto) 18.9 % Eosinophils (%) (Auto) 0.8 % Basophils (%) (Auto) 1.3 % Neutrophils # (Auto) 5.2 TH/MM3 Lymphocytes # (Auto) 1.7 TH/MM3 Monocytes # (Auto) 1.7 TH/MM3 Eosinophils # (Auto) 0.1 TH/MM3 Basophils # (Auto) 0.1 TH/MM3 CBC Comment DIFF FINAL Differential Comment Laboratory Tests Test 02/24/17 02/25/17 18:03 05:45 Sodium Level 143 MEQ/L 145 MEQ/L Potassium Level 4.1 MEQ/L 3.5 MEQ/L Chloride Level 111 MEQ/L 114 MEQ/L Carbon Dioxide Level 24.5 MEQ/L 23.0 MEQ/L Anion Gap 8 MEQ/L 8 MEQ/L Blood Urea Nitrogen 35 MG/DL 31 MG/DL Creatinine 1.52 MG/DL 1.42 MG/DL Estimat Glomerular Filtration 53 ML/MIN 57 ML/MIN Rate Random Glucose 97 MG/DL 127 MG/DL Calcium Level 7.9 MG/DL 7.7 MG/DL Phosphorus Level 1.9 MG/DL 1.7 MG/DL Magnesium Level 2.1 MG/DL 2.0 MG/DL Imaging Chest X-Ray 4/21/17 0600 Signed Impressions: Service Date/Time: Thursday, February 23, 2017 04:01 - CONCLUSION: Unchanged bibasilar infiltrates. Kaiser Valiente Jr., MD Chest X-Ray 02/23/17 0000 Signed Impressions: Service Date/Time: Thursday, February 23, 2017 11:49 - CONCLUSION: Bibasilar opacities are present may be due to a combination of consolidation and or pleural effusion. Cheyanne Reveles MD Chest X-Ray 02/22/17 0600 Signed Impressions: Service Date/Time: February 03:16 - CONCLUSION: Continue consolidation both lung bases right worse the left. Upper lungs are clear. ET tube in good position. Sanjay Watts MD Neck Magnetic Resonance Angiography 02/19/17 0000 Signed Impressions: Service Date/Time: Sunday, February 19, 2017 09:18 - CONCLUSION: 1. 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 Left vertebral emanates directly from the arch. 2. Otherwise, cervical vessels are all patent with no significant stenosis. Patient is slightly right vertebral dominant distally. Robbie Huggins MD Head Magnetic Resonance Angiography 02/19/17 0000 Signed Impressions: Service Date/Time: Sunday, February 19, 2017 09:18 - CONCLUSION: 1. 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 Intracranial vessels are otherwise patent. 2. No aneurysmal disease. 3. Anatomic variant of the seneca of [place] as above. Patient is right vertebral dominant. Robbie Huggins MD Chest X-Ray 02/19/17 0000 Signed Impressions: Service Date/Time: Sunday, February 19, 2017 11:17 - CONCLUSION: No appreciable change in bilateral pleural effusions bibasilar consolidation and/or compressive collapse and probable mild case of pulmonary edema. Cheyanne Reveles MD Neck Magnetic Resonance Angiography 02/19/17 0000 Signed Impressions: Service Date/Time: Sunday, February 19, 2017 09:18 - CONCLUSION: 1. 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 Left vertebral emanates directly from the arch. 2. Otherwise, cervical vessels are all patent with no significant stenosis. Patient is slightly right vertebral dominant distally. Robbie Huggins MD Head Magnetic Resonance Angiography 02/19/17 0000 Signed Impressions: Service Date/Time: Sunday, February 19, 2017 09:18 - CONCLUSION: 1. 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 Intracranial vessels are otherwise patent. 2. No aneurysmal disease. 3. Anatomic variant of the seneca of [place] as above. Patient is right vertebral dominant. Robbie Huggins MD Chest X-Ray 02/19/17 0000 Signed Impressions: Service Date/Time: Sunday, February 19, 2017 11:17 - CONCLUSION: No appreciable change in bilateral pleural effusions bibasilar consolidation and/or compressive collapse and probable mild case of pulmonary edema. Cheyanne Reveles MD Chest X-Ray 02/17/17 0600 Signed Impressions: Service Date/Time: Friday, February 17, 2017 03:54 - CONCLUSION: 1. Bilateral lower lobe atelectasis versus pneumonia. Bilateral effusions. There has been no significant change when compared to the prior exam. Jorge Luis Pritchard MD Chest X-Ray 02/17/17 0000 Signed Impressions: Service Date/Time: Friday, February 17, 2017 17:56 - CONCLUSION: 1. Small caliber right chest tube present without significant pneumothorax. Basilar airspace disease slightly improved on right since exam from earlier today. Clarence Gross MD Chest X-Ray 02/16/17 06 Signed Impressions: Service Date/Time: Thursday, February 16, 2017 04:06 - CONCLUSION: Improved aeration of the right lung compared to the prior exam. Stevie Fleming MD Chest X-Ray 02/15/17 0600 Signed Impressions: Service Date/Time: February 02:20 - CONCLUSION: Increasing density throughout the right hemithorax with moderate right-sided pleural effusion and probable right basilar atelectasis. Gregory Hoover MD Abdomen X-Ray 02/15/17 0000 Signed Impressions: Service Date/Time: February 11:42 - CONCLUSION: Nonspecific abdomen appearance. rTa Garibay MD Chest X-Ray 02/13/17 0600 Signed Impressions: Service Date/Time: Monday, February 13, 2017 04:07 - CONCLUSION: 1. Persistent right basilar consolidation and probable small pleural effusion. 2. Minimal density in the left retrocardiac region. Gregory Hoover MD Chest X-Ray 02/12/17 0000 Signed Impressions: Service Date/Time: Sunday, February 12, 2017 15:11 - CONCLUSION: Interval intubation. Diffuse right lung pleural-parenchymal opacity Tra Garibay MD Chest X-Ray 02/12/17 0000 Signed Impressions: Service Date/Time: Sunday, February 12, 2017 13:53 - CONCLUSION: Increasing right basilar opacity characteristic of a pleural effusion with associated volume loss and/or airspace consolidation. Tra Ma MD Last Impressions Chest X-Ray 02/09/17 0000 Signed Impressions: Service Date/Time: Thursday, February 09, 2017 12:49 - CONCLUSION: Increasing consolidative changes right lung base. Arya Horton MD FACR Head CT 02/07/171946 Signed Impressions: Service Date/Time: Tuesday, February 07, 2017 20:03 - CONCLUSION: No acute intracranial injury Tra Garibay MD Physical Exam GENERAL: Sedated on the vent. NAD SKIN: Warm and dry, no generalized rash. HEENT: [place] conjunctivae. No scleral icterus. No injection or drainage. Has OGT NECK: Trach in place, site ok, no blood. Supple CARDIOVASCULAR: Regular S1S2 RESPIRATORY: Decreased BS, worse on L than R, CT on R GASTROINTESTINAL: Abdomen less distended, bowel sounds are present, hypoactive. Grimace during palpation MUSCULOSKELETAL: Extremities without clubbing, cyanosis, or pedal edema. Hands edematous NEUROLOGICAL: Sedated PSYCH: Unable to assess LINE: PIV with no evidence of infection Assessment & Plan Remarks IMPRESSION Respiratory failure,S/P trach - S/P RX Aspiration, S/P Rx MV and TV vegetation on recent echo, all BC have been negative - ?GPC, ?GNR - initial echo negative, and this is his second echo that showed the vegetation Has R effusion, has CT in place Pneumonia present on admission: likely aspiration in setting of dementia. S/P Rx C diff positive, clinically resolved Ongoing aspiration. Dementia Acute metabolic encephalopathy Fevers: Concomitant antibiotics for Pneumonia ppting Cdiff, ongoing aspiration - temps better. Renal insufficiency, better Vomiting, better RECOMMENDATION Continue IV Vanco - [harm doing dosing - will likely be able to do q24h dosing Continue Cefepime Monitor temps Monitor progress Follow C/S Weaning per [facility] Tricia Garcia MD Feb 25, 2017 08:51
[2017-02-25] MEDS: ASPIRIN 81 MG CHEW TAB CHEW SCH (09:00)
[2017-02-25] MEDS: SENNOSIDES SYRUP 8.8 MG/5 ML CUP PO SCH ×2 (09:00→20:49)
[2017-02-25] MEDS: DOCUSATE SODIUM 100 MG/10 ML UDC PO SCH ×2 (09:00→20:49)
[2017-02-25] MEDS: LACTOBACILLUS ACIDOPHILUS TAB PO SCH ×3 (09:00→16:18)
--- NOTE | 2017-02-25 09:58 | HHI.GIFU ---
Subjective Remarks No acute changes overnight Pt is sedated on CPAP via trach Per nursing staff pt had a brown pastey BM last night. Objective Vitals I&O Vital Signs Date Time Temp Pulse Resp B/P Pulse Ox O2 Delivery O2 Flow Rate FiO2 02/25/17 07:49 100 35 02/25/17 06:00 73 02/25/17 04:03 94 35 02/25/17 04:00 98.7 66 16 144/72 100 02/25/17 04:00 66 02/25/17 04:00 35 02/25/17 02:00 77 02/25/17 01:02 100 35 02/25/17 00:00 98.9 80 16 187/98 100 02/25/17 00:00 35 02/25/17 00:00 80 02/24/17 22:03 100 35 02/24/17 22:00 71 02/24/17 20:00 71 02/24/17 20:00 99.4 71 16 137/76 100 02/24/17 20:00 35 02/24/17 19:02 100 35 02/24/17 18:00 97 02/24/17 16:02 98 35 02/24/17 16:00 99.1 83 16 164/97 98 02/24/17 16:00 83 02/24/17 16:00 35 02/24/17 14:00 90 02/24/17 12:00 85 02/24/17 12:00 35 02/24/17 12:00 98.7 85 17 130/77 97 02/24/17 11:45 98 35 02/24/17 10:00 86 I/O 02/24/17 02/24/17 02/24/17 02/25/17 02/25/17 02/25/17 07:00 15:00 23:00 07:00 15:00 23:00 Intake Total 283 ml 1359 ml 1080 ml 911 ml Output Total 330 ml 415 ml 275 ml 175 ml Balance -47 ml 944 ml 805 ml 736 ml IV Total 283 ml 1359 ml 1080 ml 911 ml Tube Feeding 0 ml 0 ml Output Urine Total 300 ml 375 ml 275 ml 175 ml Chest Tube Drainage Total 30 ml 40 ml 0 ml 0 ml Bladder Scan Volume Amount 176 ml # Bowel Movements 0 0 Laboratory Laboratory Tests Test 02/24/17 02/25/17 18:03 05:45 White Blood Count 8.8 7.1 Red Blood Count 3.08 2.84 Hemoglobin 9.2 8.7 Hematocrit 28.5 25.1 Mean Corpuscular Volume 92.7 88.6 Mean Corpuscular Hemoglobin 29.9 30.5 Mean Corpuscular Hemoglobin 32.3 34.5 Concent Red Cell Distribution Width 15.3 15.1 Platelet Count 248 303 Mean Platelet Volume 8.1 9.8 Neutrophils (%) (Auto) 59.2 Lymphocytes (%) (Auto) 19.8 Monocytes (%) (Auto) 18.9 Eosinophils (%) (Auto) 0.8 Basophils (%) (Auto) 1.3 Neutrophils # (Auto) 5.2 Lymphocytes # (Auto) 1.7 Monocytes # (Auto) 1.7 Eosinophils # (Auto) 0.1 Basophils # (Auto) 0.1 CBC Comment DIFF FINAL Differential Comment Sodium Level 143 145 Potassium Level 4.1 3.5 Chloride Level 111 114 Carbon Dioxide Level 24.5 23.0 Anion Gap 8 8 Blood Urea Nitrogen 35 31 Creatinine 1.52 1.42 Estimat Glomerular Filtration 53 57 Rate Random Glucose 97 127 Calcium Level 7.9 7.7 Phosphorus Level 1.9 1.7 Magnesium Level 2.1 2.0 Random Vancomycin Level 15.1 Date/Time Procedure Status Source Growth 02/21/17 14:05 Aerobic Blood Culture - Preliminary Resulted Blood Peripheral NO GROWTH IN 3 DAYS 02/21/17 14:05 Anaerobic Blood Culture - Preliminary Resulted Blood Peripheral NO GROWTH IN 3 DAYS Imaging Last Impressions Chest X-Ray 02/23/17 0600 Signed Impressions: Service Date/Time: Thursday, February 23, 2017 04:01 - CONCLUSION: Unchanged bibasilar infiltrates. Kaiser Valiente Jr., MD Neck Magnetic Resonance Angiography 02/19/17 0000 Signed Impressions: Service Date/Time: Sunday, February 19, 2017 09:18 - CONCLUSION: 1. 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 Left vertebral emanates directly from the arch. 2. Otherwise, cervical vessels are all patent with no significant stenosis. Patient is slightly right vertebral dominant distally. Robbie Huggins MD Head Magnetic Resonance Angiography 02/19/17 0000 Signed Impressions: Service Date/Time: Sunday, February 19, 2017 09:18 - CONCLUSION: 1. 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 Intracranial vessels are otherwise patent. 2. No aneurysmal disease. 3. Anatomic variant of the [place] as above. Patient is right vertebral dominant. Robbie Huggins MD Chest CT 02/16/17 0000 Signed Impressions: Service Date/Time: Thursday, February 16, 2017 13:26 - CONCLUSION: 1. Moderate to large right and small left pleural effusion with associated compressive atelectasis. There additionally is airspace consolidation in the right lower lobe. 2. Small pericardial effusion. 3. There are 2 nodules in the right upper lobe measuring 5 mm and 10 mm. Suggest attention to these at followup imaging. Tra Ma MD Brain MRI 02/16/17 0000 Signed Impressions: Service Date/Time: Thursday, February 16, 2017 13:44 - CONCLUSION: Atrophy and extensive white matter disease as well as micro-bleeds the route the cerebral hemispheres and cerebellum. Punctate foci of acute infarction are suspected within the bilateral frontal white matter as described above. Scott Garcia MD Abdomen/Pelvis CT 02/16/17 0000 Signed Impressions: Service Date/Time: Thursday, February 16, 2017 13:26 - CONCLUSION: 1. Diffuse body wall edema, bilateral effusions, pericardial effusion and lower lobe atelectasis and consolidation. 2. Atherosclerosis. Scott Garcia MD Abdomen X-Ray 02/15/17 0000 Signed Impressions: Service Date/Time: February 11:42 - CONCLUSION: Nonspecific abdomen appearance. Tra Garibay MD Head CT 02/07/171946 Signed Impressions: Service Date/Time: Tuesday, February 07, 2017 20:03 - CONCLUSION: No acute intracranial injury Tra Garibay MD Physical Exam GENERAL: NAD, sedated HEENT: [place] conjunctivae.No scleral icterus. No injection or drainage NECK: Trach in place. CHEST: CT in place on right chest, Decreased breath sounds bilaterally. CARDIAC: Regular, tachy ABDOMEN: +BS, soft, nondistended, nontender; EXTREMITIES: Generalized edema SKIN: Normal; no rash; no jaundice. 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 Pt s/p tracheostomy on 02/23. GI consulted for PEG. The newscast producer is following and has recommended Jevity 1.5 at 50 ml/hr. Was unable to place PEG on 02/23 due to bleeding from trach site. This has resolved. Pt planned for PEG placement on 02/26. - Acute respiratory failure/PNA/Pleural effusion/Aspiration pneumonitis. CT in place. Trach placed on 02/23. - CDiff Colitis. Flagyl. One BM last night, paste-like stool. - Atrial fibrillation, CHF, small pericardial effusion, acute systolic heart failure. BB - Acute metabolic encephalopathy, dementia, right DRAW FURNACE TENDER high grade stenosis. Per [facility] PLAN: - Plan for EGD with peg tube placement tomorrow. Consents signed and in chart per nurse. - NPO - Ancef content administrator - Business Architect recommends Jevity 1.5 at 50 ml/hr once PEG has been placed. - Pt seen and examined by Dr. Farley and myself and this note is written on her behalf Antonette Pat Feb 25, 2017 09:58
--- NOTE | 2017-02-25 10:35 | HHI.CCPN ---
Subjective Remarks/Hospital Course This is a 86yM who presented from home with altered mental status and end-stage dementia. His hospital course has been complicated by C. Diff and pneumonia for which he is on appropriate therapy. He has been noted to have scwez-ra-[id number] aspiration during this hospital stay and has been NPO. Today, a rapid response was called for acute respiratory distress and hypoxia. I was called by Dr. Velez at the rapid response. He believe this is an aspiration event given the patient's clinical history. I immediately went and evaluated the patient. He is labored and in distress. his spo2 is 93% on non-rebreather. He is also in what appears to be new-onset atrial fibrillation with RVR and a HR 160s. Brief review of the pertinent laboratory data demonstrate worsening acute kidney injury, worsening anion-gap metabolic acidosis. Critical care medicine is consulted to evaluate and manage his severe respiratory distress and afib RVR. Unfortunately, the patient is obtunded and cannot provide any additional history. 02/13: no clinical improvements. remains in multiorgan system failure. diltiazem drip weaned to off, but remains on phenylephrine. talked with nephrology who feel clinically, despite some element of JVD, that patient is clinically intravascularly hypovolemic and they recommend gentle ivf hydration, which I am ok with as a trial. mental status poor. kidney injury persists. palliative involved. apparently daughter is not health care surrogate legally, but has been making decisions in the outpatient setting. multiple disagreements within the family. appreciate palliative involvement. 02/14: Renal function continues to worsen and today 57/4.1. D/w Nephrology. If family wants everything done, will need to proceed with HD. Tmax 101.1. ID following 02/15: Remains critically ill, did not tolerate brief CPAP trial. CXR shows mod to large R pl effusion. MAXIMUM TEMPERATURE 100.5. Creatinine slightly improved with urine output more than 1.4 L 02/16: Patient remains intubated, lightly sedated.. Did not tolerate C-peptide yesterday due to tachypnea. CT of the chest shows moderately large right effusion plan for thoracentesis 02/17: Tmax 100.7. No bowel movement since 02/12. On sedation vacation withdrawals but does not follow commands. Tolerating tube feeds at goal. 02/18: Afebrile. One bowel movement overnight. Tolerating tube feeding. Placement of 10 [place] pigtail catheter with 600 cc likely transudative effusion. Tachycardic this AM. 02/19: Currently down for CT abdomen/pelvis with distended abdomen. Also MRA brain/neck with acute/subacute bifrontal CVA. Neurology consult pending. Will likely need tracheostomy. 02/20: Noted emesis last night [address] abdomen/pelvis unremarkable. Moderate gastric output. Started on Reglan. Positive BM. 02/21: Afebrile. Tolerating trickle feeds. One bowel movement. Noted echocardiogram report yesterday. Discussed with Dr. Garcia - blood cultures 2, vancomycin. Reassess in a.m.. Attempting to obtain consent for tracheostomy with . 02/22: Neuro exam unchanged. Mental status will not permit extubation. UO adequate, creat improving. Tracheostomy tomorrow 02/23: Creat continues to improve, no change in mentation. Trach with Parminder today, GI consulted for PEG placement. 02/24: Afebrile. Status post tracheostomy by Dr. Zurita yesterday. Unable to replace gastric tube secondary to bleeding. Plan for PEG on Sunday. Subjective: 02/25: Currently afebrile. Tracheostomy without bleeding. Hypertensive requiring when necessary's. Plan for PEG Sunday Objective Vital Signs Date Time Temp Pulse Resp B/P Pulse Ox O2 Delivery O2 Flow Rate FiO2 02/25/17 07:49 100 35 02/25/17 06:00 73 02/25/17 04:00 98.7 16 144/72 Intake and Output 02/24/17 02/24/17 02/25/17 08:00 16:00 00:00 Intake Total 283 ml 1359 ml 1080 ml Output Total 330 ml 415 ml 275 ml Balance -47 ml 944 ml 805 ml Result Diagram: 02/25/17 0545 02/25/17 0545 Other Results Microbiology Date/Time Procedure Status Source Growth 02/21/17 14:05 Aerobic Blood Culture - Preliminary Resulted Blood Peripheral NO GROWTH IN 3 DAYS 02/21/17 14:05 Anaerobic Blood Culture - Preliminary Resulted Blood Peripheral NO GROWTH IN 3 DAYS Imaging Last Impressions Chest X-Ray 02/23/17 0600 Signed Impressions: Service Date/Time: Thursday, February 23, 2017 04:01 - CONCLUSION: Unchanged bibasilar infiltrates. Kaiser Valiente Jr., MD Neck Magnetic Resonance Angiography 02/19/17 Signed Impressions: Service Date/Time: Sunday, February 19, 2017 09:18 - CONCLUSION: 1. 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 Left vertebral emanates directly from the arch. 2. Otherwise, cervical vessels are all patent with no significant stenosis. Patient is slightly right vertebral dominant distally. Robbie Huggins MD Head Magnetic Resonance Angiography 02/19/17 Signed Impressions: Service Date/Time: Sunday, February 19, 2017 09:18 - CONCLUSION: 1. 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 Intracranial vessels are otherwise patent. 2. No aneurysmal disease. 3. Anatomic variant of the [place] as above. Patient is right vertebral dominant. Robbie Huggins MD Chest CT 02/16/17 Signed Impressions: Service Date/Time: Thursday, February 16, 2017 13:26 - CONCLUSION: 1. Moderate to large right and small left pleural effusion with associated compressive atelectasis. There additionally is airspace consolidation in the right lower lobe. 2. Small pericardial effusion. 3. There are 2 nodules in the right upper lobe measuring 5 mm and 10 mm. Suggest attention to these at followup imaging. Tra Ma MD Brain MRI 02/16/17 Signed Impressions: Service Date/Time: Thursday, February 16, 2017 13:44 - CONCLUSION: Atrophy and extensive white matter disease as well as micro-bleeds the route the cerebral hemispheres and cerebellum. Punctate foci of acute infarction are suspected within the bilateral frontal white matter as described above. Scott Garcia MD Abdomen/Pelvis CT 02/16/17 Signed Impressions: Service Date/Time: Thursday, February 16, 2017 13:26 - CONCLUSION: 1. Diffuse body wall edema, bilateral effusions, pericardial effusion and lower lobe atelectasis and consolidation. 2. Atherosclerosis. Scott Garcia MD Abdomen X-Ray 02/15/17 0000 Signed Impressions: Service Date/Time: February 11:42 - CONCLUSION: Nonspecific abdomen appearance. Tra Garibay MD Head CT 02/07/171946 Signed Impressions: Service Date/Time: Tuesday, February 07, 2017 20:03 - CONCLUSION: No acute intracranial injury Tra Garibay MD Objective Remarks GENERAL: 86-year-old [place] male, critically ill currently on ventilator via tracheostomy SKIN: Warm and dry. No rash HEAD: Atraumatic. Normocephalic. EYES: Pupils equal and round about 3-4 mm bilaterally and reactive. No scleral icterus. No injection or drainage. ENT: No nasal bleeding or discharge. Mucous membranes pink and moist. Oropharynx without erythema. Tracheostomy site is clean dry and intact with no drainage NECK: Trachea midline. Minimal JVD. CARDIOVASCULAR: RRR. S1, S2. No S4. Faint systolic murmur 2 out of 6 RESPIRATORY: Improved breath sounds/aeration throughout the right lung field since placement of pigtail catheter. Few crackles in bases bilaterally. No wheeze GASTROINTESTINAL: Abdomen protuberant. Nontender. Hypoactive bowel sounds are appreciated. MUSCULOSKELETAL: Extremities with trace to 1+ lower extremity pitting edema. No obvious deformities. NEUROLOGICAL: Arousable on sedation vacation but not following commands. Positive gag. Positive corneal reflex. Moves all 4 extremity spontaneously and withdrawal Procedures None A/P Assessment and Plan Neuro/Psych: Acute metabolic encephalopathy End-stage dementia Right EDI PROGRAMMER high-grade stenosis Currently On propofol at 30 mg/kg/m and Fentanyl drip at 250 is an hour for sedation and analgesia while intubated Goal of RASS -2. Daily sedation vacation CT head 02/07 negative for acute disease MRI brain 02/16 revealed increased fluid in the bilateral centrum semi-ovale and PV WM, remote basal ganglia infarcts bilaterally and PV WM. Punctuate micro- bleeds throughout. MRA brain 02/19 revealed left P2 segment EDI PROGRAMMER high-grade stenosis MRI neck - 02/19 - Anatomical Variant Cir., [place]. Left vertebral takes off from aortic arch. Neurology consult Dr. Avalos appreciated. Noted echo 02/12 no vegetations. 02/19 revealed 2 x 4 mm mitral valve leaflet and tricuspid valve lateral leaflet likely vegetation. - See infectious disease Not a anticoagulation candidate per neurology due to micro-hemorrhages. Currently on aspirin 81 mg daily EEG 02/16 reveals moderate to severe encephalopathy. No epileptiform activity. Respiratory: Acute hypoxic respiratory failure Aspiration pneumonitis [id number] aspiration Mod to large R effusion/small left pleural effusion Right upper lobe pulmonary nodules 5 and 10 mm. Recommend follow up CT in 3-6 months [facility] 16/550/1.11/11/34 -- vent bundle Bronchodilator therapy every 6 hours with albuterol every 2 hours for breakthrough -- HOB at 30 degrees -- wean fiO2 for goal spo2 > 90% CT chest 02/16 revealed moderate to large right pleural effusion and atelectasis/ small left pleural effusion. Status post placement of pigtail catheter right effusion 03/19. -40 cm. -100 ml SS overnight. Tracheostomy 02/[address] Zurita, Currently unable to wean to CPAP trial Cardiovascular: Atrial Fibrillation with Rapid Ventricular Response- resolved. Sinus tachycardia Distributive shock-resolved Acute systolic heart failure Small pericardial effusion Echocardiogram 02/12 revealed EF 30-35%. Moderate TR. MARIA 53 mmHg. revealed EF 35%. Hypokinesis global. Small Mobile densities tricuspid and mitral valve ? vegetation question right MARIA 52 mmHg. -- Off Cardizem drip for HR control Home medications metoprolol 50 mg daily, losartan 100 mg daily and hydralazine 50 mg twice a day currently on hold. --Continue low-dose Lopressor 5 mill grams IV every 6 with holding parameters Renal: Acute Kidney Injury secondary to ATN secondary to hypoperfusion Bumex 1 mg IV q12 per nephrology has been discontinued Nephrology following. Renal function improving cr On free water 100 every 6 currently held while her tube [place]erman creat steadily improving FEN/GI: Acute protein calorie malnutrition- severe C.Difficile Colitis Diarrhea Acute on chronic Aspiration Constipation TF with Jevity 1.5 goal 60 cc an hour currently off secondary to lack of tube Colace twice a day/Senokot twice a day CT abdomen/pelvis revealed left kidney protrusion, bilateral pleural effusions and small pericardial effusion. Significant edema Repeat CT abdomen/pelvis with distended abdomen. Revealed right L1/left L3 transverse process fracture. Anasarca. PEG tube on for Sunday Heme/ID: C. 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 Garcia following ABX per ID Discontinued Cefepime 02/21. Discontinue azithromycin 02/16, Continue Flagyl, for aspiration and C diff. Initiated vancomycin and cefepime after blood cultures 2 drawn 02/21 for possible endocarditis tricuspid valve/mitral valve. Negative to date Pertinent cultures 02/07 - blood cultures 2 - no growth 02/08 - stool -- C. difficile positive 02/09 - blood cultures 2 - no growth 02/12 - urine - no growth 02/13 - sputum - no growth 02/15 - blood cultures 2 - no growth 02/18 - urine - no growth 02/21 - blood no growth to date Endocrine: Hyperglycemia of critical illness -- SSI, q6h, med scale Prophylaxis: SCDs, SQH held with micro-hemorrhages. Resume when clinically indicated, Protonix for GI prophylaxis Critical Care: Level 3. Gerry Mike MD Feb 25, 2017 10:35
[2017-02-25] MEDS: VANCOMYCIN 1,000 MG/NS 250 ML IV SCH ×2 (13:23)
--- NOTE | 2017-02-25 14:17 | HHI.NPPN ---
Subjective General Problems: Hypotension Renal Failure: Chronic, Acute Additional Remarks Patient remain intubated and sedated, clinically same, with Trach. Review of Systems General General Remarks unable to obtain due to intubation/sedation Objective Data Data 02/24/17 02/25/17 19:00 07:00 Intake Total 1359 ml 1991 ml Output Total 415 ml 450 ml Balance 944 ml 1541 ml IV Total 1359 ml 1991 ml Tube Feeding 0 ml Output Urine Total 375 ml 450 ml Chest Tube Drainage Total 40 ml 0 ml # Bowel Movements 0 Vital Signs Date Time Temp Pulse Resp B/P Pulse Ox O2 Delivery O2 Flow Rate FiO2 02/25/17 12:21 79 02/25/17 12:20 35 02/25/17 11:30 35 02/25/17 10:30 35 02/25/17 10:00 77 02/25/17 08:00 35 02/25/17 07:49 100 35 02/25/17 06:00 73 02/25/17 04:03 94 35 02/25/17 04:00 98.7 66 16 144/72 100 02/25/17 04:00 66 02/25/17 04:00 35 02/25/17 02:00 77 02/25/17 01:02 100 35 02/25/17 00:00 98.9 80 16 187/98 100 02/25/17 00:00 35 02/25/17 00:00 80 02/24/17 22:03 100 35 02/24/17 22:00 71 02/24/17 20:00 71 02/24/17 20:00 99.4 71 16 137/76 100 02/24/17 20:00 35 02/24/17 19:02 100 35 02/24/17 18:00 97 02/24/17 16:02 98 35 02/24/17 16:00 99.1 83 16 164/97 98 02/24/17 16:00 83 02/24/17 16:00 35 -: 02/25/17 0545 02/25/17 0545 Tubes & Lines: [place] Tubes & Lines Comment pig tail drain, chest tube R Drip Comment fentanyl, propofol Physical Exam General Appearance: Malnourished Appearance Remarks Intubated and sedated. Eyes Eye Exam: Pupils Equal Throat Throat Exam: Oral Mucosa [place] & Moist Pulmonary Resp Exam: Breath Sounds Equal, Crackles, Rhonchi Cardiology CV Exam: Irregular, Tachycardia Gastrointestinal/Abdomen GI Exam: Non-Tender, Bowel Sounds Present, Positive Bowel Movement Musculoskeletal MS Exam: Atrophy Integumentary Skin Exam: Clear, Warm, Dry, Intact Extremeties Extremities Exam: Trace Edema Neurologic Neuro Exam: Unresponsive, Sedated VTE Prophylaxis Device: SCDs Assessment/Plan Assessment Summary: WILLIE/Acute Renal Failure Electrolyte Assessment: Hyponatremia Problem List: (1) Acute renal failure Plan: in a patient whose baseline creatinine was 1.7 in 2006 ATN from renal hypoperfusion renal function has improved good urine output IVF and diuretics have beens topped stopped. avoid nephrotoxins, renally dose medications when appropriate Creatinine is better,now 1.4, urine out put is better. Continue antibiotics and IVF. For PEG tomorrow. (2) Encephalopathy Plan: multifactorial, has hx of dementia was septic and in acute hypoxic respiratory failure continue supportive measures EEG reviewed, (3) Dysphagia Plan: PEG planned trach today (4) Pneumonia Plan: likely aspiration related on ancef and flagyl ID following. vancomycin was stopped (5) Clostridium difficile infection Plan: IV changed to PO flagyl contact precautions Problem Qualifiers (1) Pneumonia: Qualified Code: J18.1 - Pneumonia of right lower lobe due to infectious organism Xochitl Means MD Feb 25, 2017 14:17
[2017-02-26] VITALS (16 sets, daily range): BP systolic 126–180; BP diastolic 58–82; PULSE 70–81; RESP 16–20; TEMP 98.3–99.3; O2SAT 97–100
[2017-02-26] MEDS: CEFEPIME INJ 2,000 MG in SODIUM CHLORIDE 0.9% INJ 100 ML IV SCH ×2 (03:42→16:00)
[2017-02-26] MEDS: METOPROLOL TARTRATE 5 MG/5 ML VIAL IV PUSH SCH ×4 (04:14→21:27)
[2017-02-26 04:17] LABS: AUTOMATED NEUTROPHIL # 4.8 TH/MM3 (1.8-7.7); BASOPHIL % 0.5 % (0.0-2.0); EOSINOPHIL # 0.1 TH/MM3 (0-0.4); EOSINOPHIL % 0.9 % (0.0-4.0); HEMATOCRIT 24.8 % (39.0-51.0); HEMO FLAGS DIFF FINAL; LYMPH % 17.3 % (9.0-44.0); LYMPHOCYTE # 1.2 TH/MM3 (1.0-4.8); MEAN CELL VOLUME 88.9 FL (80.0-100.0); MEAN CORPUSCULAR HEMOGLOBIN 30.6 PG (27.0-34.0); MEAN CORPUSCULAR HGB CONC 34.4 % (32.0-36.0); NEUT % 68.3 % (16.0-70.0); PLATELET COUNT 248 TH/MM3 (150-450); RED BLOOD COUNT 2.78 MIL/MM3 (4.50-5.90)
[2017-02-26] MEDS: DEXT 5%-NACL 0.9% 1000 ML INJ 1,000 ML IV SCH (04:22)
[2017-02-26 04:23] LABS: INTERNATIONAL NORMALIZED RATIO 1.3 RATIO; PROTHROMBIN TIME - PATIENT 14.6 SEC (9.8-11.6)
[2017-02-26 04:34] LABS: BICARBONATE 22.5 MEQ/L (21.0-32.0); MAGNESIUM 1.9 MG/DL (1.5-2.5); POTASSIUM 3.6 MEQ/L (3.5-5.1)
[2017-02-26] MEDS: INSULIN NovoLIN REGULAR SUPPLEMENTAL SCALE SQ SCH ×4 (06:00→18:00)
[2017-02-26] MEDS: FREE WATER G-TUBE SCH ×3 (06:00→18:00)
[2017-02-26] MEDS: METOCLOPRAMIDE HCL 10 MG/2 ML VIAL IV PUSH SCH ×3 (06:13→21:27)
[2017-02-26] MEDS: ARTIFICIAL TEARS OPTH SOLN 15 ML BTL EACH EYE SCH ×2 (06:14→12:08)
[2017-02-26] MEDS: CHLORHEXIDINE 0.12% (ORAL KIT) 15 ML CUP MT SCH ×2 (08:00→20:00)
[2017-02-26] MEDS: ASPIRIN 81 MG CHEW TAB CHEW SCH (09:00)
[2017-02-26] MEDS: SENNOSIDES SYRUP 8.8 MG/5 ML CUP PO SCH ×2 (09:00→21:00)
[2017-02-26] MEDS: DOCUSATE SODIUM 100 MG/10 ML UDC PO SCH ×2 (09:00→21:00)
[2017-02-26] MEDS: LACTOBACILLUS ACIDOPHILUS TAB PO SCH ×3 (09:00→18:00)
[2017-02-26] MEDS ORDERED: PROPOFOL 200 MG/20 ML AMP IV ONE ×2 (09:23→15:48)
[2017-02-26] MEDS: VANCOMYCIN 1,000 MG/NS 250 ML IV SCH ×2 (12:00)
--- NOTE | 2017-02-26 12:29 | HHI.IDPN ---
Subjective Subjective Remarks Notes reviewed D/W RN Temps ok On the vent , S/P trach 02/23 No further bleeding in trach site Plans for PEG today BP ok, not on pressors Repeat echo 02/19 with vegetation in MV and TV All his BC are negative WBC normal Creatinine improving is an 86 y/o AAM ([place] by ) with Dementia who presented with worsening mentation and diagnosed with Pneumonia and Cdiff positive diarrhea. PM records from 2006 indicate no allergies no surgeries. ID following for PNA and Cdiff present on admission. Antibiotics Vancomycin Cefepime Lines Line sites with no evidence of infection Past Medical History Dementia. Allergies: Coded Allergies: No Known Allergies (Verified , 11/22/06) UNOBTAINABLE (Unverified , 02/09/17) Objective . Vital Signs Date Time Temp Pulse Resp B/P Pulse Ox O2 Delivery O2 Flow Rate FiO2 02/26/17 10:00 76 02/26/17 08:22 98.9 78 20 126/58 100 02/26/17 08:00 35 02/26/17 08:00 77 02/26/17 07:43 100 35 02/26/17 06:00 71 02/26/17 04:00 35 02/26/17 04:00 99.0 81 20 136/74 100 02/26/17 04:00 81 02/26/17 03:55 100 35 02/26/17 02:00 72 02/26/17 01:02 100 35 02/26/17 00:00 35 02/26/17 00:00 99.3 70 16 129/68 100 02/26/17 00:00 70 02/25/17 22:00 72 02/25/17 20:09 100 35 02/25/17 20:00 35 02/25/17 20:00 79 02/25/17 20:00 99.2 80 16 128/74 100 02/25/17 18:21 84 02/25/17 16:10 87 02/25/17 16:09 35 02/25/17 16:00 98.9 85 16 125/66 100 02/25/17 15:19 100 35 02/25/17 14:00 83 02/25/17 02/25/17 02/26/17 15:00 23:00 07:00 Intake Total 1031 ml 972 ml 920 ml Output Total 375 ml 500 ml 275 ml Balance 656 ml 472 ml 645 ml Intake Oral 0 ml IV Total 1031 ml 972 ml 920 ml Tube Feeding 0 ml 0 ml 0 ml Output Urine Total 375 ml 450 ml 275 ml Chest Tube Drainage Total 50 ml 0 ml # Bowel Movements 1 0 0 . Laboratory Tests Test 02/24/17 02/25/17 02/26/17 18:03 05:45 04:00 White Blood Count 8.8 TH/MM3 7.1 TH/MM3 7.0 TH/MM3 Red Blood Count 3.08 MIL/MM3 2.84 MIL/MM3 2.78 MIL/MM3 Hemoglobin 9.2 GM/DL 8.7 GM/DL 8.5 GM/DL Hematocrit 28.5 % 25.1 % 24.8 % Mean Corpuscular Volume 92.7 FL 88.6 FL 88.9 FL Mean Corpuscular Hemoglobin 29.9 PG 30.5 PG 30.6 PG Mean Corpuscular Hemoglobin 32.3 % 34.5 % 34.4 % Concent Red Cell Distribution Width 15.3 % 15.1 % 15.0 % Platelet Count 248 TH/MM3 303 TH/MM3 248 TH/MM3 Mean Platelet Volume 8.1 FL 9.8 FL 9.1 FL Neutrophils (%) (Auto) 59.2 % 68.3 % Lymphocytes (%) (Auto) 19.8 % 17.3 % Monocytes (%) (Auto) 18.9 % 13.0 % Eosinophils (%) (Auto) 0.8 % 0.9 % Basophils (%) (Auto) 1.3 % 0.5 % Neutrophils # (Auto) 5.2 TH/MM3 4.8 TH/MM3 Lymphocytes # (Auto) 1.7 TH/MM3 1.2 TH/MM3 Monocytes # (Auto) 1.7 TH/MM3 0.9 TH/MM3 Eosinophils # (Auto) 0.1 TH/MM3 0.1 TH/MM3 Basophils # (Auto) 0.1 TH/MM3 0.0 TH/MM3 CBC Comment DIFF FINAL DIFF FINAL Differential Comment Laboratory Tests Test 02/24/17 02/25/17 02/26/17 18:03 05:45 04:00 Sodium Level 143 MEQ/L 145 MEQ/L 147 MEQ/L Potassium Level 4.1 MEQ/L 3.5 MEQ/L 3.6 MEQ/L Chloride Level 111 MEQ/L 114 MEQ/L 118 MEQ/L Carbon Dioxide Level 24.5 MEQ/L 23.0 MEQ/L 22.5 MEQ/L Anion Gap 8 MEQ/L 8 MEQ/L 7 MEQ/L Blood Urea Nitrogen 35 MG/DL 31 MG/DL 27 MG/DL Creatinine 1.52 MG/DL 1.42 MG/DL 1.40 MG/DL Estimat Glomerular Filtration 53 ML/MIN 57 ML/MIN 58 ML/MIN Rate Random Glucose 97 MG/DL 127 MG/DL 118 MG/DL Calcium Level 7.9 MG/DL 7.7 MG/DL 7.7 MG/DL Phosphorus Level 1.9 MG/DL 1.7 MG/DL 2.1 MG/DL Magnesium Level 2.1 MG/DL 2.0 MG/DL 1.9 MG/DL Imaging Chest X-Ray 02/23/17 0600 Signed Impressions: Service Date/Time: Thursday, February 23, 2017 04:01 - CONCLUSION: Unchanged bibasilar infiltrates. Kaiser Valiente Jr., MD Chest X-Ray 02/23/17 0000 Signed Impressions: Service Date/Time: Thursday, February 23, 2017 11:49 - CONCLUSION: Bibasilar opacities are present may be due to a combination of consolidation and or pleural effusion. Cheyanne Reveles MD Chest X-Ray 02/22/17 0600 Signed Impressions: Service Date/Time: February 03:16 - CONCLUSION: Continue consolidation both lung bases right worse the left. Upper lungs are clear. ET tube in good position. Sanjay Watts MD Neck Magnetic Resonance Angiography 02/19/17 0000 Signed Impressions: Service Date/Time: Sunday, February 19, 2017 09:18 - CONCLUSION: 1. 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 Left vertebral emanates directly from the arch. 2. Otherwise, cervical vessels are all patent with no significant stenosis. Patient is slightly right vertebral dominant distally. Robbie Huggins MD Head Magnetic Resonance Angiography 02/19/17 0000 Signed Impressions: Service Date/Time: Sunday, February 19, 2017 09:18 - CONCLUSION: 1. 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 Intracranial vessels are otherwise patent. 2. No aneurysmal disease. 3. Anatomic variant of the [place] as above. Patient is right vertebral dominant. Robbie Huggins MD Chest X-Ray 02/19/17 0000 Signed Impressions: Service Date/Time: Sunday, February 19, 2017 11:17 - CONCLUSION: No appreciable change in bilateral pleural effusions bibasilar consolidation and/or compressive collapse and probable mild case of pulmonary edema. Cheyanne Reveles MD Neck Magnetic Resonance Angiography 02/19/17 0000 Signed Impressions: Service Date/Time: Sunday, February 19, 2017 09:18 - CONCLUSION: 1. 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 Left vertebral emanates directly from the arch. 2. Otherwise, cervical vessels are all patent with no significant stenosis. Patient is slightly right vertebral dominant distally. Robbie Huggins MD Head Magnetic Resonance Angiography 02/19/17 0000 Signed Impressions: Service Date/Time: Sunday, February 19, 2017 09:18 - CONCLUSION: 1. 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 Intracranial vessels are otherwise patent. 2. No aneurysmal disease. 3. Anatomic variant of the [place] as above. Patient is right vertebral dominant. Robbie Huggins MD Chest X-Ray 02/19/17 0000 Signed Impressions: Service Date/Time: Sunday, February 19, 2017 11:17 - CONCLUSION: No appreciable change in bilateral pleural effusions bibasilar consolidation and/or compressive collapse and probable mild case of pulmonary edema. Cheyanne Reveles MD Chest X-Ray 02/17/17 0600 Signed Impressions: Service Date/Time: Friday, February 17, 2017 03:54 - CONCLUSION: 1. Bilateral lower lobe atelectasis versus pneumonia. Bilateral effusions. There has been no significant change when compared to the prior exam. Jorge Luis Pritchard MD Chest X-Ray 02/17/17 0000 Signed Impressions: Service Date/Time: Friday, February 17, 2017 17:56 - CONCLUSION: 1. Small caliber right chest tube present without significant pneumothorax. Basilar airspace disease slightly improved on right since exam from earlier today. Clarence Gross MD Chest X-Ray 02/16/17 0600 Signed Impressions: Service Date/Time: Thursday, February 16, 2017 04:06 - CONCLUSION: Improved aeration of the right lung compared to the prior exam. Stevie J. [place], MD Chest X-Ray 02/15/17 0600 Signed Impressions: Service Date/Time: February 02:20 - CONCLUSION: Increasing density throughout the right hemithorax with moderate right-sided pleural effusion and probable right basilar atelectasis. Gregory Hoover MD Abdomen X-Ray 02/15/17 0000 Signed Impressions: Service Date/Time: February 11:42 - CONCLUSION: Nonspecific abdomen appearance. Tra Garibay MD Chest X-Ray 02/13/17 0600 Signed Impressions: Service Date/Time: Monday, February 13, 2017 04:07 - CONCLUSION: 1. Persistent right basilar consolidation and probable small pleural effusion. 2. Minimal density in the left retrocardiac region. Gregory Hoover MD Chest X-Ray 02/12/17 0000 Signed Impressions: Service Date/Time: Sunday, February 12, 2017 15:11 - CONCLUSION: Interval intubation. Diffuse right lung pleural-parenchymal opacity Tra Garibay MD Chest X-Ray 02/12/17 0000 Signed Impressions: Service Date/Time: Sunday, February 12, 2017 13:53 - CONCLUSION: Increasing right basilar opacity characteristic of a pleural effusion with associated volume loss and/or airspace consolidation. Tra Ma MD Last Impressions Chest X-Ray 02/09/17 0000 Signed Impressions: Service Date/Time: Thursday, February 09, 2017 12:49 - CONCLUSION: Increasing consolidative changes right lung base. Arya Horton MD FACR Head CT 02/07/171946 Signed Impressions: Service Date/Time: Tuesday, February 07, 2017 20:03 - CONCLUSION: No acute intracranial injury Tra Garibay MD Physical Exam GENERAL: Sedated on the vent. NAD SKIN: Warm and dry, no generalized rash. HEENT: [place] conjunctivae. No scleral icterus. No injection or drainage. Has OGT NECK: Trach in place, site ok, no blood. Supple CARDIOVASCULAR: Regular S1S2 RESPIRATORY: Decreased BS, worse on L than R, CT on R GASTROINTESTINAL: Abdomen less distended, bowel sounds are present, hypoactive. Grimace during palpation MUSCULOSKELETAL: Extremities without clubbing, cyanosis, or pedal edema. Hands edematous NEUROLOGICAL: Sedated PSYCH: Unable to assess LINE: PIV with no evidence of infection Assessment & Plan Remarks IMPRESSION Respiratory failure,S/P trach - S/P RX Aspiration, S/P Rx MV and TV vegetation on recent echo, all BC have been negative - ?GPC, ?GNR - initial echo negative, and this is his second echo that showed the vegetation Has R effusion, has CT in place Pneumonia present on admission: likely aspiration in setting of dementia. S/P Rx C diff positive, clinically resolved Ongoing aspiration. Dementia Acute metabolic encephalopathy Fevers: Concomitant antibiotics for Pneumonia ppting Cdiff, ongoing aspiration - temps better. Renal insufficiency, better Vomiting, better RECOMMENDATION Continue IV Vanco - Pharm doing dosing - aim for trough 15-20 Continue Cefepime Monitor temps Monitor progress For PEG placement Weaning per CCM Tricia Garcia MD Feb 26, 2017 12:29
--- NOTE | 2017-02-26 12:48 | HHI.CCPN ---
Subjective Remarks/Hospital Course This is a 86yM who presented from home with altered mental status and end-stage dementia. His hospital course has been complicated by C. Diff and pneumonia for which he is on appropriate therapy. He has been noted to have [id number] aspiration during this hospital stay and has been NPO. Today, a rapid response was called for acute respiratory distress and hypoxia. I was called by Dr. Velez at the rapid response. He believe this is an aspiration event given the patient's clinical history. I immediately went and evaluated the patient. He is labored and in distress. his spo2 is 93% on non-rebreather. He is also in what appears to be new-onset atrial fibrillation with RVR and a HR 160s. Brief review of the pertinent laboratory data demonstrate worsening acute kidney injury, worsening anion-gap metabolic acidosis. Critical care medicine is consulted to evaluate and manage his severe respiratory distress and afib RVR. Unfortunately, the patient is obtunded and cannot provide any additional history. 02/13: no clinical improvements. remains in multiorgan system failure. diltiazem drip weaned to off, but remains on phenylephrine. talked with nephrology who feel clinically, despite some element of JVD, that patient is clinically intravascularly hypovolemic and they recommend gentle ivf hydration, which I am ok with as a trial. mental status poor. kidney injury persists. palliative involved. apparently daughter is not health care surrogate legally, but has been making decisions in the outpatient setting. multiple disagreements within the family. appreciate palliative involvement. 02/14: Renal function continues to worsen and today 57/4.1. D/w Nephrology. If family wants everything done, will need to proceed with HD. Tmax 101.1. ID following 02/15: Remains critically ill, did not tolerate brief CPAP trial. CXR shows mod to large R pl effusion. MAXIMUM TEMPERATURE 100.5. Creatinine slightly improved with urine output more than 1.4 L 02/16: Patient remains intubated, lightly sedated.. Did not tolerate C-peptide yesterday due to tachypnea. CT of the chest shows moderately large right effusion plan for thoracentesis 02/17: Tmax 100.7. No bowel movement since 02/12. On sedation vacation withdrawals but does not follow commands. Tolerating tube feeds at goal. 02/18: Afebrile. One bowel movement overnight. Tolerating tube feeding. Placement of 10 Persian pigtail catheter with 600 cc likely transudative effusion. Tachycardic this AM. 02/19: Currently down for CT abdomen/pelvis with distended abdomen. Also MRA brain/neck with acute/subacute bifrontal CVA. Neurology consult pending. Will likely need tracheostomy. 02/20: Noted emesis last night [address] abdomen/pelvis unremarkable. Moderate gastric output. Started on Reglan. Positive BM. 02/21: Afebrile. Tolerating trickle feeds. One bowel movement. Noted echocardiogram report yesterday. Discussed with Dr. Garcia - blood cultures 2, vancomycin. Reassess in a.m.. Attempting to obtain consent for tracheostomy with . 02/22: Neuro exam unchanged. Mental status will not permit extubation. UO adequate, creat improving. Tracheostomy tomorrow 02/23: Creat continues to improve, no change in mentation. Trach with Parminder today, GI consulted for PEG placement. 02/24: Afebrile. Status post tracheostomy by Dr. Zurita yesterday. Unable to replace gastric tube secondary to bleeding. Plan for PEG on Sunday. 02/25: Currently afebrile. Tracheostomy without bleeding. Hypertensive requiring when necessary's. Plan for PEG Sunday Subjective: 02/26: Afebrile. Check yesterday was unpacked last night. Repacked today. On sedation. Plan for PEG today. Objective Vital Signs Date Time Temp Pulse Resp B/P Pulse Ox O2 Delivery O2 Flow Rate FiO2 02/26/17 10:00 76 02/26/17 08:22 98.9 20 126/58 100 02/26/17 08:00 35 Intake and Output 02/25/17 02/25/17 02/26/17 08:00 16:00 00:00 Intake Total 911 ml 1031 ml 972 ml Output Total 175 ml 375 ml 500 ml Balance 736 ml 656 ml 472 ml Result Diagram: 02/26/17 0400 02/26/17 0400 Other Results Microbiology Date/Time Procedure Status Source Growth 02/21/17 14:05 Aerobic Blood Culture - Final Complete Blood Peripheral NO GROWTH IN 5 DAYS 02/21/17 14:05 Anaerobic Blood Culture - Final Complete Blood Peripheral NO GROWTH IN 5 DAYS Imaging Last Impressions Chest X-Ray 02/23/17 0600 Signed Impressions: Service Date/Time: Thursday, February 23, 2017 04:01 - CONCLUSION: Unchanged bibasilar infiltrates. Kaiser Valiente Jr., MD Neck Magnetic Resonance Angiography 02/19/17 0000 Signed Impressions: Service Date/Time: Sunday, February 19, 2017 09:18 - CONCLUSION: 1. 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 Left vertebral emanates directly from the arch. 2. Otherwise, cervical vessels are all patent with no significant stenosis. Patient is slightly right vertebral dominant distally. Robbie Huggins MD Head Magnetic Resonance Angiography 02/19/17 0000 Signed Impressions: Service Date/Time: Sunday, February 19, 2017 09:18 - CONCLUSION: 1. 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 Intracranial vessels are otherwise patent. 2. No aneurysmal disease. 3. Anatomic variant of the [place] as above. Patient is right vertebral dominant. Robbie Huggins MD Chest CT 02/16/17 0000 Signed Impressions: Service Date/Time: Thursday, February 16, 2017 13:26 - CONCLUSION: 1. Moderate to large right and small left pleural effusion with associated compressive atelectasis. There additionally is airspace consolidation in the right lower lobe. 2. Small pericardial effusion. 3. There are 2 nodules in the right upper lobe measuring 5 mm and 10 mm. Suggest attention to these at followup imaging. Tra Ma MD Brain MRI 02/16/17 0000 Signed Impressions: Service Date/Time: Thursday, February 16, 2017 13:44 - CONCLUSION: Atrophy and extensive white matter disease as well as micro-bleeds the route the cerebral hemispheres and cerebellum. Punctate foci of acute infarction are suspected within the bilateral frontal white matter as described above. Scott Garcia MD Abdomen/Pelvis CT 02/16/17 0000 Signed Impressions: Service Date/Time: Thursday, February 16, 2017 13:26 - CONCLUSION: 1. Diffuse body wall edema, bilateral effusions, pericardial effusion and lower lobe atelectasis and consolidation. 2. Atherosclerosis. Scott Garcia MD Abdomen X-Ray 02/15/17 0000 Signed Impressions: Service Date/Time: February 11:42 - CONCLUSION: Nonspecific abdomen appearance. Tra Garibay MD Head CT 02/07/171946 Signed Impressions: Service Date/Time: Tuesday, February 07, 2017 20:03 - CONCLUSION: No acute intracranial injury Tra Garibay MD Objective Remarks GENERAL: 86-year-old [place] male, critically ill currently on ventilator via tracheostomy SKIN: Warm and dry. No rash HEAD: Atraumatic. Normocephalic. EYES: Pupils equal and round about 3-4 mm bilaterally and reactive. No scleral icterus. No injection or drainage. ENT: No nasal bleeding or discharge. Mucous membranes pink and moist. Oropharynx without erythema. Tracheostomy site is clean dry and intact with no drainage NECK: Trachea midline. Minimal JVD. CARDIOVASCULAR: RRR. S1, S2. No S4. Faint systolic murmur 2 out of 6 RESPIRATORY: Improved breath sounds/aeration throughout the right lung field since placement of pigtail catheter. Few crackles in bases bilaterally. No wheeze GASTROINTESTINAL: Abdomen protuberant. Nontender. Hypoactive bowel sounds are appreciated. MUSCULOSKELETAL: Extremities with trace to 1+ lower extremity pitting edema. No obvious deformities. NEUROLOGICAL: Arousable on sedation vacation but not following commands. Positive gag. Positive corneal reflex. 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 Daily sedation vacation CT head 02/07 negative for acute disease MRI brain 02/16 revealed increased fluid in the bilateral centrum semi-ovale and PV WM, remote basal ganglia infarcts bilaterally and PV WM. Punctuate micro- bleeds throughout. MRA brain 02/19 revealed left P2 segment PHLEBOTOMIST MEDICAL LAB ASSISTANT high-grade stenosis MRI neck - 02/19 - Anatomical Variant Cir., [place]. Left vertebral takes off from aortic arch. Neurology consult Dr. Avalos appreciated. Noted echo 02/12 no vegetations. 02/19 revealed 2 x 4 mm mitral valve leaflet and tricuspid valve lateral leaflet likely vegetation. - See infectious disease Not a anticoagulation candidate per neurology due to micro-hemorrhages. Currently on aspirin 81 mg daily EEG 02/16 reveals moderate to severe encephalopathy. No epileptiform activity. Respiratory: Acute hypoxic respiratory failure Aspiration pneumonitis [id number] aspiration Mod to large R effusion/small left pleural effusion Right upper lobe pulmonary nodules 5 and 10 mm. Recommend follow up CT in 3-6 months [facility] 16/1.11/11/34 -- vent bundle Bronchodilator therapy every 6 hours with albuterol every 2 hours for breakthrough -- HOB at 30 degrees -- wean fiO2 for goal spo2 > 90% CT chest 02/16 revealed moderate to large right pleural effusion and atelectasis/ small left pleural effusion. Status post placement of pigtail catheter right effusion 03/19. -40 cm. -100 ml SS overnight. Tracheostomy 02/[address] Zurita, Currently unable to wean to CPAP trial Cardiovascular: Atrial Fibrillation with Rapid Ventricular Response- resolved. Sinus tachycardia Distributive shock-resolved Acute systolic heart failure Small pericardial effusion Echocardiogram 02/12 revealed EF 30-35%. Moderate TR. MARIA 53 mmHg. revealed EF 35%. Hypokinesis global. Small Mobile densities tricuspid and mitral valve ? vegetation question right MARIA 52 mmHg. -- Off Cardizem drip for HR control Home medications metoprolol 50 mg daily, losartan 100 mg daily and hydralazine 50 mg twice a day currently on hold. --Continue low-dose Lopressor 5 mill grams IV every 6 with holding parameters Currently on D5 half normal saline at 84 cc an hour. Renal: Acute Kidney Injury secondary to ATN secondary to hypoperfusion Bumex 1 mg IV q12 per nephrology has been discontinued Nephrology following. Renal function improving cr On free water 100 every 6 currently held while her tube Zimm[place] creat steadily improving FEN/GI: Acute protein calorie malnutrition- severe C.Difficile Colitis Diarrhea Acute on chronic Aspiration Constipation TF with Jevity 1.5 goal 60 cc an hour currently off secondary to lack of tube Colace twice a day/Senokot twice a day CT abdomen/pelvis revealed left kidney protrusion, bilateral pleural effusions and small pericardial effusion. Significant edema Repeat CT abdomen/pelvis with distended abdomen. Revealed right L1/left L3 transverse process fracture. Anasarca. PEG tube on for Sunday Heme/ID: C. 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 Garcia following ABX per ID Discontinued Cefepime 02/21. Discontinue azithromycin 02/16, Continue Flagyl, for aspiration and C diff. Initiated vancomycin and cefepime after blood cultures 2 drawn 02/21 for possible endocarditis tricuspid valve/mitral valve. Negative to date Pertinent cultures 02/07 - blood cultures 2 - no growth 02/08 - stool -- C. difficile positive 02/09 - blood cultures 2 - no growth 02/12 - urine - no growth 02/13 - sputum - no growth 02/15 - blood cultures 2 - no growth 02/18 - urine - no growth 02/21 - blood no growth to date Endocrine: Hyperglycemia of critical illness -- SSI, q6h, med scale Prophylaxis: SCDs, SQH held with micro-hemorrhages. Resume when clinically indicated, Protonix for GI prophylaxis Critical Care: Level 3. Gerry Mike MD Feb 26, 2017 12:48
[2017-02-26] MEDS ORDERED: MAGNESIUM SULFATE 1 GM PREMIX 100 ML IV ONE (13:00)
[2017-02-26] MEDS: DEXT 5%-NACL 0.45% 1000 ML INJ 1,000 ML IV SCH (13:00)
[2017-02-26] MEDS ORDERED: POTASSIUM CHLOR 20 MEQ PREMIX 100 ML IV ONE (13:00)
--- NOTE | 2017-02-26 15:02 | PD.PROCEDR ---
GI Procedure REFERRING PHYSICIAN CHELSEY PROCEDURE PERFORMED EGD with PEG placement INDICATION FOR PROCEDURE Dysphagia with respiratory failure PROCEDURE: The procedure, risks and benefits were discussed with Mr. Morgan and informed consent was obtained. Anesthesia sedated him with Diprivan. He was placed in the left lateral decubitus position. EGD: The Pentax videoscope was introduced through the oropharynx and advanced to the second portion of the duodenum under direct visualization. Retroflexion was performed in the stomach. FINDINGS: Esophagus this was normal Stomach this was normal Duodenum this was normal Following the evaluation of the stomach and the duodenum the stomach was insufflated with air and the area of PEG placement was identified through indentation and transillumination the area was prepped and draped in usual fashion 5 cc of lidocaine were injected locally a small incision was made then an Angiocath was passed into the stomach through which a guidewire was passed this was retrieved with the scope into that a PEG tube was attached and pulled into place and thereafter secured in usual fashion The patient tolerated procedure well and there are no immediate complications ESTIMATED BLOOD LOSS: None SPECIMENS REMOVED: None COMPLICATIONS: None IMPRESSION: Normal EGD Successful PEG placement PLAN: 1. May use PEG tube for medications today 2. May start feeding tomorrow 3. May obtain nutritional consult for tube feeding 4. Flush tube with 50 cc of water every 4-6 hours 5. Always flush tube after feedings 6. Apply abdominal binder as necessary 7. Clamp G-tube after use and flush. Raúl Cox MD Feb 26, 2017 15:02
[2017-02-26] MEDS: fentaNYL DRIP 250 ML IV SCH (21:32)
[2017-02-27] VITALS (20 sets, daily range): BP systolic 129–149; BP diastolic 61–85; PULSE 68–84; RESP 16; TEMP 97.1–99.4; O2SAT 94–100
[2017-02-27] MEDS: DEXT 5%-NACL 0.45% 1000 ML INJ 1,000 ML IV SCH ×2 (00:29→12:18)
[2017-02-27] MEDS: ARTIFICIAL TEARS OPTH SOLN 15 ML BTL EACH EYE SCH ×4 (00:29→22:27)
[2017-02-27] MEDS: PROPOFOL 1000 MG/100 ML INJ 100 ML IV SCH ×2 (00:32→12:29)
[2017-02-27] MEDS: METOPROLOL TARTRATE 5 MG/5 ML VIAL IV PUSH SCH ×3 (04:56→17:37)
[2017-02-27] MEDS: METOCLOPRAMIDE HCL 10 MG/2 ML VIAL IV PUSH SCH ×3 (04:56→22:27)
[2017-02-27] MEDS: FREE WATER G-TUBE SCH ×4 (04:57→17:37)
[2017-02-27] MEDS: CEFEPIME INJ 2,000 MG in SODIUM CHLORIDE 0.9% INJ 100 ML IV SCH ×2 (04:57→14:41)
[2017-02-27] MEDS: INSULIN NovoLIN REGULAR SUPPLEMENTAL SCALE SQ SCH ×4 (04:57→17:37)
[2017-02-27 05:46] LABS: AUTOMATED NEUTROPHIL # 6.5 TH/MM3 (1.8-7.7); BASOPHIL # 0.1 TH/MM3 (0-0.2); EOSINOPHIL # 0.1 TH/MM3 (0-0.4); HEMATOCRIT 28.9 % (39.0-51.0); HEMO FLAGS DIFF FINAL; LYMPH % 11.5 % (9.0-44.0); MEAN CELL VOLUME 92.6 FL (80.0-100.0); MEAN CORPUSCULAR HEMOGLOBIN 29.8 PG (27.0-34.0); MEAN CORPUSCULAR HGB CONC 32.2 % (32.0-36.0); MONO % 9.3 % (0.0-8.0); NEUT % 77.2 % (16.0-70.0); PLATELET COUNT 177 TH/MM3 (150-450); RED BLOOD COUNT 3.13 MIL/MM3 (4.50-5.90); RED CELL DISTRIBUTION WIDTH 15.4 % (11.6-17.2); WHITE BLOOD COUNT 8.4 TH/MM3 (4.0-11.0)
[2017-02-27 05:55] LABS: BICARBONATE 21.5 MEQ/L (21.0-32.0); CALCIUM-PROTEIN CORRECTED 7.8 MG/DL (8.5-10.1); POTASSIUM 3.8 MEQ/L (3.5-5.1); TOTAL BILIRUBIN ADULT 0.7 MG/DL (0.2-1.0)
--- NOTE | 2017-02-27 07:12 | HHI.GIFU ---
Subjective Remarks Resting in bed- sedated on the ventilator. Nurse reports that the patient had some associated bleeding with tracheostomy yesterday, but no bleeding at PEG tube site. (Gabby Varela) Objective Vitals I&O Vital Signs Date Time Temp Pulse Resp B/P Pulse Ox O2 Delivery O2 Flow Rate FiO2 02/27/17 06:00 70 02/27/17 04:42 100 35 02/27/17 04:00 97.3 80 16 144/70 100 02/27/17 04:00 81 02/27/17 04:00 35 02/27/17 02:00 79 02/27/17 00:56 94 40 02/27/17 00:09 100 35 02/27/17 00:00 97.1 81 16 149/85 100 02/27/17 00:00 81 02/27/17 00:00 35 02/26/17 22:00 78 02/26/17 20:35 100 35 02/26/17 20:00 80 02/26/17 20:00 98.3 80 16 180/82 100 02/26/17 20:00 35 02/26/17 18:22 74 02/26/17 16:00 98.3 73 20 136/75 97 02/26/17 16:00 72 02/26/17 16:00 35 02/26/17 15:37 100 35 02/26/17 10:00 76 02/26/17 08:22 98.9 78 20 126/58 100 02/26/17 08:00 35 02/26/17 08:00 77 02/26/17 07:43 100 35 I/O 02/26/17 02/26/17 02/26/17 02/27/17 02/27/17 02/27/17 07:00 15:00 23:00 07:00 15:00 23:00 Intake Total 920 ml 877 ml 1932 ml 654 ml Output Total 275 ml 325 ml 400 ml 250 ml Balance 645 ml 552 ml 1532 ml 404 ml Intake Oral 0 ml IV Total 920 ml 877 ml 1932 ml 654 ml Tube Feeding 0 ml 0 ml 0 ml 0 ml Output Urine Total 275 ml 325 ml 400 ml 250 ml Chest Tube Drainage Total 0 ml 0 ml # Bowel Movements 0 0 0 Laboratory Laboratory Tests Test 02/27/17 04:35 White Blood Count 8.4 Red Blood Count 3.13 Hemoglobin 9.3 Hematocrit 28.9 Mean Corpuscular Volume 92.6 Mean Corpuscular Hemoglobin 29.8 Mean Corpuscular Hemoglobin 32.2 Concent Red Cell Distribution Width 15.4 Platelet Count 177 Mean Platelet Volume 8.3 Neutrophils (%) (Auto) 77.2 Lymphocytes (%) (Auto) 11.5 Monocytes (%) (Auto) 9.3 Eosinophils (%) (Auto) 1.0 Basophils (%) (Auto) 1.0 Neutrophils # (Auto) 6.5 Lymphocytes # (Auto) 1.0 Monocytes # (Auto) 0.8 Eosinophils # (Auto) 0.1 Basophils # (Auto) 0.1 CBC Comment DIFF FINAL Differential Comment Sodium Level 145 Potassium Level 3.8 Chloride Level 116 Carbon Dioxide Level 21.5 Anion Gap 8 Blood Urea Nitrogen 23 Creatinine 1.47 Estimat Glomerular Filtration 55 Rate Random Glucose 104 Calcium Level 7.4 Protein Corrected Calcium 7.8 Phosphorus Level 2.0 Magnesium Level 2.0 Total Bilirubin 0.7 Aspartate Amino Transf 43 (AST/SGOT) Alanine Aminotransferase 19 (ALT/SGPT) Alkaline Phosphatase 54 Total Protein 6.4 Albumin 1.6 Imaging Last Impressions Chest X-Ray 02/23/17 0600 Signed Impressions: Service Date/Time: Thursday, February 23, 2017 04:01 - CONCLUSION: Unchanged bibasilar infiltrates. Kaiser Valiente Jr., MD Neck Magnetic Resonance Angiography 02/19/17 0000 Signed Impressions: Service Date/Time: Sunday, February 19, 2017 09:18 - CONCLUSION: 1. 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 Left vertebral emanates directly from the arch. 2. Otherwise, cervical vessels are all patent with no significant stenosis. Patient is slightly right vertebral dominant distally. Robbie Huggins MD Head Magnetic Resonance Angiography 02/19/17 0000 Signed Impressions: Service Date/Time: Sunday, February 19, 2017 09:18 - CONCLUSION: 1. 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 Intracranial vessels are otherwise patent. 2. No aneurysmal disease. 3. Anatomic variant of the [place] as above. Patient is right vertebral dominant. Robbie Huggins MD Chest CT 02/16/17 0000 Signed Impressions: Service Date/Time: Thursday, February 16, 2017 13:26 - CONCLUSION: 1. Moderate to large right and small left pleural effusion with associated compressive atelectasis. There additionally is airspace consolidation in the right lower lobe. 2. Small pericardial effusion. 3. There are 2 nodules in the right upper lobe measuring 5 mm and 10 mm. Suggest attention to these at followup imaging. Tra Ma MD Brain MRI 02/16/17 0000 Signed Impressions: Service Date/Time: Thursday, February 16, 2017 13:44 - CONCLUSION: Atrophy and extensive white matter disease as well as micro-bleeds the route the cerebral hemispheres and cerebellum. Punctate foci of acute infarction are suspected within the bilateral frontal white matter as described above. Scott Garcia MD Abdomen/Pelvis CT 02/16/17 0000 Signed Impressions: Service Date/Time: Thursday, February 16, 2017 13:26 - CONCLUSION: 1. Diffuse body wall edema, bilateral effusions, pericardial effusion and lower lobe atelectasis and consolidation. 2. Atherosclerosis. Scott Garcia MD Abdomen X-Ray 02/15/17 0000 Signed Impressions: Service Date/Time: February 11:42 - CONCLUSION: Nonspecific abdomen appearance. Tra Garibay MD Head CT 02/07/171946 Signed Impressions: Service Date/Time: Tuesday, February 07, 2017 20:03 - CONCLUSION: No acute intracranial injury Tra Garibay MD Physical Exam HEENT: [place] conjunctivae.No scleral icterus. NECK: Trach in place. CHEST: CT in place on right chest, Decreased breath sounds bilaterally. CARDIAC: Regular, tachy ABDOMEN: +BS, soft, nondistended, nontender; PEG tube site with a small amount of sanguinous drainage-dried. 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 Pt s/p tracheostomy on 02/23. GI consulted for PEG. The heel emery buffer is following and has recommended Jevity 1.5 at 50 ml/hr. S/P EGD with PEG tube placement (02/26/17)----> normal EGD, successful PEG tube site. Site with very small amount of old blood on original drsg, no active bleeding. Will start TF. - Acute respiratory failure/PNA/Pleural effusion/Aspiration pneumonitis. CT in place. Trach placed on 02/23. - CDiff Colitis. Flagyl. - Atrial fibrillation, CHF, small pericardial effusion, acute systolic heart failure. 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 Per [place] [facility]: - S/P PEG tube placement- site with small amount of old dried blood on original drsg, but no active bleeding, no redness, swelling - Jevity 1.5 at 30cc/hr and increase to GR of 60cc/hr - GI will sign off, please reconsult as needed - Pt seen and examined by Dr. Cox and myself and this note is written on his behalf (Gabby Varela) Physician Comments Patient seen and examined Agree with above Continue with current supportive care Monitor labs Start tube feeding We will sign off (Raúl Cox MD) Gabby Varela Feb 27, 2017 07:12 Raúl Cox MD Feb 27, 2017 20:59
[2017-02-27] MEDS: DOCUSATE SODIUM 100 MG/10 ML UDC PO SCH ×2 (08:49→21:01)
[2017-02-27] MEDS: SENNOSIDES SYRUP 8.8 MG/5 ML CUP PO SCH ×2 (08:49→21:01)
[2017-02-27] MEDS: ASPIRIN 81 MG CHEW TAB CHEW SCH (08:49)
[2017-02-27] MEDS: LACTOBACILLUS ACIDOPHILUS TAB PO SCH ×3 (08:49→17:37)
[2017-02-27] MEDS: CHLORHEXIDINE 0.12% (ORAL KIT) 15 ML CUP MT SCH ×2 (08:50→21:01)
--- NOTE | 2017-02-27 09:53 | HHI.IDPN ---
Subjective Subjective Remarks Notes reviewed Temps ok On the vent , S/P trach 02/23 S/P PEG 02/26 No further bleeding in trach site BP ok, not on pressors is an 86 y/o AAM ([facility] by ) with Dementia who presented with worsening mentation and diagnosed with Pneumonia and Cdiff positive diarrhea. PM records from 2006 indicate no allergies no surgeries. ID following for PNA and Cdiff present on admission. Antibiotics Vancomycin Cefepime Lines Line sites with no evidence of infection Past Medical History Dementia. Allergies: Coded Allergies: No Known Allergies (Verified , 11/22/06) UNOBTAINABLE (Unverified , 02/09/17) Objective . Vital Signs Date Time Temp Pulse Resp B/P Pulse Ox O2 Delivery O2 Flow Rate FiO2 02/27/17 08:22 98 35 02/27/17 06:00 70 02/27/17 04:42 100 35 02/27/17 04:00 97.3 80 16 144/70 100 02/27/17 04:00 81 02/27/17 04:00 35 02/27/17 02:00 79 02/27/17 00:56 94 40 02/27/17 00:09 100 35 02/27/17 00:00 97.1 81 16 149/85 100 02/27/17 00:00 81 02/27/17 00:00 35 02/26/17 22:00 78 02/26/17 20:35 100 35 02/26/17 20:00 80 02/26/17 20:00 98.3 80 16 180/82 100 02/26/17 20:00 35 02/26/17 18:22 74 02/26/17 16:00 98.3 73 20 136/75 97 02/26/17 16:00 72 02/26/17 16:00 35 02/26/17 15:37 100 35 02/26/17 10:00 76 02/26/17 02/26/17 02/27/17 15:00 23:00 07:00 Intake Total 877 ml 1932 ml 654 ml Output Total 325 ml 400 ml 250 ml Balance 552 ml 1532 ml 404 ml Intake Oral 0 ml IV Total 877 ml 1932 ml 654 ml Tube Feeding 0 ml 0 ml 0 ml Output Urine Total 325 ml 400 ml 250 ml Chest Tube Drainage Total 0 ml # Bowel Movements 0 0 . Laboratory Tests Test 02/26/17 02/27/17 04:00 04:35 White Blood Count 7.0 TH/MM3 8.4 TH/MM3 Red Blood Count 2.78 MIL/MM3 3.13 MIL/MM3 Hemoglobin 8.5 GM/DL 9.3 GM/DL Hematocrit 24.8 % 28.9 % Mean Corpuscular Volume 88.9 FL 92.6 FL Mean Corpuscular Hemoglobin 30.6 PG 29.8 PG Mean Corpuscular Hemoglobin 34.4 % 32.2 % Concent Red Cell Distribution Width 15.0 % 15.4 % Platelet Count 248 TH/MM3 177 TH/MM3 Mean Platelet Volume 9.1 FL 8.3 FL Neutrophils (%) (Auto) 68.3 % 77.2 % Lymphocytes (%) (Auto) 17.3 % 11.5 % Monocytes (%) (Auto) 13.0 % 9.3 % Eosinophils (%) (Auto) 0.9 % 1.0 % Basophils (%) (Auto) 0.5 % 1.0 % Neutrophils # (Auto) 4.8 TH/MM3 6.5 TH/MM3 Lymphocytes # (Auto) 1.2 TH/MM3 1.0 TH/MM3 Monocytes # (Auto) 0.9 TH/MM3 0.8 TH/MM3 Eosinophils # (Auto) 0.1 TH/MM3 0.1 TH/MM3 Basophils # (Auto) 0.0 TH/MM3 0.1 TH/MM3 CBC Comment DIFF FINAL DIFF FINAL Differential Comment Laboratory Tests Test 02/26/17 02/27/17 04:00 04:35 Sodium Level 147 MEQ/L 145 MEQ/L Potassium Level 3.6 MEQ/L 3.8 MEQ/L Chloride Level 118 MEQ/L 116 MEQ/L Carbon Dioxide Level 22.5 MEQ/L 21.5 MEQ/L Anion Gap 7 MEQ/L 8 MEQ/L Blood Urea Nitrogen 27 MG/DL 23 MG/DL Creatinine 1.40 MG/DL 1.47 MG/DL Estimat Glomerular Filtration 58 ML/MIN 55 ML/MIN Rate Random Glucose 118 MG/DL 104 MG/DL Calcium Level 7.7 MG/DL 7.4 MG/DL Phosphorus Level 2.1 MG/DL 2.0 MG/DL Magnesium Level 1.9 MG/DL 2.0 MG/DL Protein Corrected Calcium 7.8 MG/DL Total Bilirubin 0.7 MG/DL Aspartate Amino Transf 43 U/L (AST/SGOT) Alanine Aminotransferase 19 U/L (ALT/SGPT) Alkaline Phosphatase 54 U/L Total Protein 6.4 GM/DL Albumin 1.6 GM/DL Imaging Chest X-Ray 02/23/17 0600 Signed Impressions: Service Date/Time: Thursday, February 23, 2017 04:01 - CONCLUSION: Unchanged bibasilar infiltrates. Kaiser Valiente Jr., MD Chest X-Ray 02/23/17 0000 Signed Impressions: Service Date/Time: Thursday, February 23, 2017 11:49 - CONCLUSION: Bibasilar opacities are present may be due to a combination of consolidation and or pleural effusion. Cheyanne Reveles MD Chest X-Ray 02/22/17 0600 Signed Impressions: Service Date/Time: February 03:16 - CONCLUSION: Continue consolidation both lung bases right worse the left. Upper lungs are clear. ET tube in good position. Sanjay Watts MD Neck Magnetic Resonance Angiography 02/19/17 0000 Signed Impressions: Service Date/Time: Sunday, February 19, 2017 09:18 - CONCLUSION: 1. 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 Left vertebral emanates directly from the arch. 2. Otherwise, cervical vessels are all patent with no significant stenosis. Patient is slightly right vertebral dominant distally. Robbie Huggins MD Head Magnetic Resonance Angiography 02/19/17 0000 Signed Impressions: Service Date/Time: Sunday, February 19, 2017 09:18 - CONCLUSION: 1. 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 Intracranial vessels are otherwise patent. 2. No aneurysmal disease. 3. Anatomic variant of the [place] as above. Patient is right vertebral dominant. Robbie Huggins MD Chest X-Ray 02/19/17 0000 Signed Impressions: Service Date/Time: Sunday, February 19, 2017 11:17 - CONCLUSION: No appreciable change in bilateral pleural effusions bibasilar consolidation and/or compressive collapse and probable mild case of pulmonary edema. Cheyanne Reveles MD Physical Exam GENERAL: Sedated on the vent. NAD SKIN: Warm and dry, no generalized rash. HEENT: [place] conjunctivae. No scleral icterus. No injection or drainage. Moist mucosa NECK: Trach in place, site ok, no blood. Supple CARDIOVASCULAR: Regular S1S2 RESPIRATORY: Decreased BS, worse on L than R, CT on R GASTROINTESTINAL: Abdomen less distended, bowel sounds are present, hypoactive. PEG site ok. Some grimacing with palpation MUSCULOSKELETAL: Extremities without clubbing, cyanosis, or pedal edema. Hands edematous NEUROLOGICAL: Sedated PSYCH: Unable to assess LINE: PIV with no evidence of infection Assessment & Plan Remarks IMPRESSION Respiratory failure,S/P trach - S/P RX Aspiration, S/P Rx MV and TV vegetation on recent echo, all BC have been negative - ?GPC, ?GNR - initial echo negative, and this is his second echo that showed the vegetation Has R effusion, has CT in place Pneumonia present on admission: likely aspiration in setting of dementia. S/P Rx C diff positive, clinically resolved Ongoing aspiration. Dementia Acute metabolic encephalopathy Fevers: Concomitant antibiotics for Pneumonia ppting Cdiff, ongoing aspiration - temps better. Renal insufficiency, better Vomiting, better RECOMMENDATION Continue IV Vanco - Pharm doing dosing - aim for trough 15-20 Continue Cefepime Monitor temps Monitor progress Weaning per CCM Tricia Garcia MD Feb 27, 2017 09:53
[2017-02-27] MEDS: fentaNYL DRIP 250 ML IV SCH ×2 (10:38→23:08)
[2017-02-27] MEDS ORDERED: PHARMACY ORDERED LAB ONE (11:45)
--- NOTE | 2017-02-27 12:57 | HHI.CCPN ---
Subjective Remarks/Hospital Course This is a 86yM who presented from home with altered mental status and end-stage dementia. His hospital course has been complicated by C. Diff and pneumonia for which he is on appropriate therapy. He has been noted to have ollbm-wq-lqrwvpa aspiration during this hospital stay and has been NPO. Today, a rapid response was called for acute respiratory distress and hypoxia. I was called by Dr. Velez at the rapid response. He believe this is an aspiration event given the patient's clinical history. I immediately went and evaluated the patient. He is labored and in distress. his spo2 is 93% on non-rebreather. He is also in what appears to be new-onset atrial fibrillation with RVR and a HR 160s. Brief review of the pertinent laboratory data demonstrate worsening acute kidney injury, worsening anion-gap metabolic acidosis. Critical care medicine is consulted to evaluate and manage his severe respiratory distress and afib RVR. Unfortunately, the patient is obtunded and cannot provide any additional history. 02/13: no clinical improvements. remains in multiorgan system failure. diltiazem drip weaned to off, but remains on phenylephrine. talked with nephrology who feel clinically, despite some element of JVD, that patient is clinically intravascularly hypovolemic and they recommend gentle ivf hydration, which I am ok with as a trial. mental status poor. kidney injury persists. palliative involved. apparently daughter is not health care surrogate legally, but has been making decisions in the outpatient setting. multiple disagreements within the family. appreciate palliative involvement. 02/14: Renal function continues to worsen and today 57/4.1. D/w Nephrology. If family wants everything done, will need to proceed with HD. Tmax 101.1. ID following 02/15: Remains critically ill, did not tolerate brief CPAP trial. CXR shows mod to large R pl effusion. MAXIMUM TEMPERATURE 100.5. Creatinine slightly improved with urine output more than 1.4 L 02/16: Patient remains intubated, lightly sedated.. Did not tolerate C-peptide yesterday due to tachypnea. CT of the chest shows moderately large right effusion plan for thoracentesis 02/17: Tmax 100.7. No bowel movement since 02/12. On sedation vacation withdrawals but does not follow commands. Tolerating tube feeds at goal. 02/18: Afebrile. One bowel movement overnight. Tolerating tube feeding. Placement of 10 [place] pigtail catheter with 600 cc likely transudative effusion. Tachycardic this AM. 02/19: Currently down for CT abdomen/pelvis with distended abdomen. Also MRA brain/neck with acute/subacute bifrontal CVA. Neurology consult pending. Will likely need tracheostomy. 02/20: Noted emesis last night [address] abdomen/pelvis unremarkable. Moderate gastric output. Started on Reglan. Positive BM. 02/21: Afebrile. Tolerating trickle feeds. One bowel movement. Noted echocardiogram report yesterday. Discussed with Dr. Garcia - blood cultures 2, vancomycin. Reassess in a.m.. Attempting to obtain consent for tracheostomy with . 02/22: Neuro exam unchanged. Mental status will not permit extubation. UO adequate, creat improving. Tracheostomy tomorrow 02/23: Creat continues to improve, no change in mentation. Trach with Parminder today, GI consulted for PEG placement. 02/24: Afebrile. Status post tracheostomy by Dr. Zurita yesterday. Unable to replace gastric tube secondary to bleeding. Plan for PEG on Sunday. 02/25: Currently afebrile. Tracheostomy without bleeding. Hypertensive requiring when necessary's. Plan for PEG Monday 02/26: Afebrile. Check yesterday was unpacked last night. Repacked today. On sedation. Plan for PEG today. Subjective: 02/27: Afebrile. Chest without bleeding. Continues to be on sedation due to agitation. PEG tube yesterday without competition. Plan remove chest tube today. Objective Vital Signs Date Time Temp Pulse Resp B/P Pulse Ox O2 Delivery O2 Flow Rate FiO2 02/27/17 11:44 99 35 02/27/17 10:00 71 02/27/17 08:00 98.1 16 146/75 Intake and Output 02/26/17 02/26/17 02/27/17 08:00 16:00 00:00 Intake Total 920 ml 877 ml 1932 ml Output Total 275 ml 325 ml 400 ml Balance 645 ml 552 ml 1532 ml Result Diagram: 02/27/17 6675 02/27/17 0435 Imaging Last Impressions Chest X-Ray 02/23/17 0600 Signed Impressions: Service Date/Time: Thursday, February 23, 2017 04:01 - CONCLUSION: Unchanged bibasilar infiltrates. Kaiser Valiente Jr., MD Neck Magnetic Resonance Angiography 02/19/17 Signed Impressions: Service Date/Time: Sunday, February 19, 2017 09:18 - CONCLUSION: 1. 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 Left vertebral emanates directly from the arch. 2. Otherwise, cervical vessels are all patent with no significant stenosis. Patient is slightly right vertebral dominant distally. Robbie Huggins MD Head Magnetic Resonance Angiography 02/19/17 0000 Signed Impressions: Service Date/Time: Sunday, February 19, 2017 09:18 - CONCLUSION: 1. 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 Intracranial vessels are otherwise patent. 2. No aneurysmal disease. 3. Anatomic variant of the [place] as above. Patient is right vertebral dominant. Robbie Huggins MD Chest CT 02/16/17 0000 Signed Impressions: Service Date/Time: Thursday, February 16, 2017 13:26 - CONCLUSION: 1. Moderate to large right and small left pleural effusion with associated compressive atelectasis. There additionally is airspace consolidation in the right lower lobe. 2. Small pericardial effusion. 3. There are 2 nodules in the right upper lobe measuring 5 mm and 10 mm. Suggest attention to these at followup imaging. Tra Ma MD Brain MRI 02/16/17 Signed Impressions: Service Date/Time: Thursday, February 16, 2017 13:44 - CONCLUSION: Atrophy and extensive white matter disease as well as micro-bleeds the route the cerebral hemispheres and cerebellum. Punctate foci of acute infarction are suspected within the bilateral frontal white matter as described above. Scott Garcia MD Abdomen/Pelvis CT 02/16/17 0000 Signed Impressions: Service Date/Time: Thursday, February 16, 2017 13:26 - CONCLUSION: 1. Diffuse body wall edema, bilateral effusions, pericardial effusion and lower lobe atelectasis and consolidation. 2. Atherosclerosis. Scott Garcia MD Abdomen X-Ray 02/15/17 0000 Signed Impressions: Service Date/Time: February 11:42 - CONCLUSION: Nonspecific abdomen appearance. Tra Garibay MD Head CT 02/07/171946 Signed Impressions: Service Date/Time: Tuesday, February 07, 2017 20:03 - CONCLUSION: No acute intracranial injury Tra Garibay MD Objective Remarks GENERAL: 86-year-old [place] male, critically ill currently on ventilator via tracheostomy SKIN: Warm and dry. No rash HEAD: Atraumatic. Normocephalic. EYES: Pupils equal and round about 3-4 mm bilaterally and reactive. No scleral icterus. No injection or drainage. ENT: No nasal bleeding or discharge. Mucous membranes pink and moist. Oropharynx without erythema. Tracheostomy site is clean dry and intact with no drainage NECK: Trachea midline. Minimal JVD. CARDIOVASCULAR: RRR. S1, S2. No S4. Faint systolic murmur 2 out of 6 RESPIRATORY: Improved breath sounds/aeration throughout the right lung field since placement of pigtail catheter. Few crackles in bases bilaterally. No wheeze GASTROINTESTINAL: Abdomen protuberant. Nontender. Hypoactive bowel sounds are appreciated. MUSCULOSKELETAL: Extremities with trace to 1+ lower extremity pitting edema. No obvious deformities. NEUROLOGICAL: Arousable on sedation vacation but not following commands. Positive gag. Positive corneal reflex. Moves all 4 extremity spontaneously and withdrawal Procedures None A/P Assessment and Plan Neuro/Psych: Acute metabolic encephalopathy End-stage dementia Right [place] [place] high-grade stenosis Currently On propofol at 30 mg/kg/m and Fentanyl drip at 250 is an hour for sedation and analgesia while intubated Goal of RASS -2. Daily sedation vacation CT head 02/07 negative for acute disease MRI brain 02/16 revealed increased fluid in the bilateral centrum semi-ovale and PV WM, remote basal ganglia infarcts bilaterally and PV WM. Punctuate micro- bleeds throughout. MRA brain 02/19 revealed left P2 segment [employer] [place] high-grade stenosis MRI neck - 02/19 - Anatomical Variant Cir., [place]. Left vertebral takes off from aortic arch. Neurology consult Dr. Avalos appreciated. Noted echo 02/12 no vegetations. 02/19 revealed 2 x 4 mm mitral valve leaflet and tricuspid valve lateral leaflet likely vegetation. - See infectious disease Not a anticoagulation candidate per neurology due to micro-hemorrhages. Currently on aspirin 81 mg daily EEG 02/16 reveals moderate to severe encephalopathy. No epileptiform activity. Start on Seroquel 25 twice a day and oxycodone 5 every 6 hours and wean off IV sedatives Respiratory: Acute hypoxic respiratory failure Aspiration pneumonitis Dfzdd-ah-wxqwudj aspiration Mod to large R effusion/small left pleural effusion Right upper lobe pulmonary nodules 5 and 10 mm. Recommend follow up CT in 3-6 months [facility] 16/1.11/11/34 -- vent bundle Bronchodilator therapy every 6 hours with albuterol every 2 hours for breakthrough -- HOB at 30 degrees -- wean fiO2 for goal spo2 > 90% CT chest 02/16 revealed moderate to large right pleural effusion and atelectasis/ small left pleural effusion. Status post placement of pigtail catheter right effusion 03/19. -40 cm. 0 ml SS overnight. We'll place to water seal. If no pneumothorax in a.m. will remove .. Tracheostomy 02/[address] Zurita, Currently unable to wean to CPAP trial Cardiovascular: Atrial Fibrillation with Rapid Ventricular Response- resolved. Sinus tachycardia Distributive shock-resolved Acute systolic heart failure Small pericardial effusion Echocardiogram 02/12 revealed EF 30-35%. Moderate TR. MARIA 53 mmHg. revealed EF 35%. Hypokinesis global. Small Mobile densities tricuspid and mitral valve ? vegetation question right MARIA 52 mmHg. -- Off Cardizem drip for HR control Home medications metoprolol 50 mg daily, losartan 100 mg daily and hydralazine 50 mg twice a day currently on hold. --Continue low-dose Lopressor 5 mill grams IV every 6 with holding parameters Hydralazine 25 twice a day today. Currently on D5 half normal saline at 84 cc an hour to be discontinued today Renal: Acute Kidney Injury secondary to ATN secondary to hypoperfusion Bumex 1 mg IV q12 per nephrology has been discontinued Nephrology following. Renal function improving cr On free water 100 every 6 currently held while her tube Zimmerman creat steadily improving FEN/GI: Acute protein calorie malnutrition- severe C.Difficile Colitis Diarrhea Acute on chronic Aspiration Constipation TF with Jevity 1.5 goal 60 cc an hour resume today Colace twice a day/Senokot twice a day CT abdomen/pelvis revealed left kidney protrusion, bilateral pleural effusions and small pericardial effusion. Significant edema Repeat CT abdomen/pelvis with distended abdomen. Revealed right L1/left L3 transverse process fracture. Anasarca. PEG tube by Dr. Cox Heme/ID: C. 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 Garcia following ABX per ID Discontinued Cefepime 02/21. Discontinue azithromycin 02/16, Continue Flagyl, for aspiration and C diff. Initiated vancomycin and cefepime after blood cultures 2 drawn 02/21 for possible endocarditis tricuspid valve/mitral valve. Negative to date Pertinent cultures 02/07 - blood cultures 2 - no growth 02/08 - stool -- C. difficile positive 02/09 - blood cultures 2 - no growth 02/12 - urine - no growth 02/13 - sputum - no growth 02/15 - blood cultures 2 - no growth 02/18 - urine - no growth 02/21 - blood no growth to date Endocrine: Hyperglycemia of critical illness -- SSI, q6h, med scale Prophylaxis: SCDs, SQH held with micro-hemorrhages. Resume when clinically indicated, Protonix for GI prophylaxis Critical Care: Level 3. Gerry Mike MD Feb 27, 2017 12:57
[2017-02-27] MEDS: VANCOMYCIN 1,000 MG/NS 250 ML IV SCH ×2 (14:40)
[2017-02-27] MEDS: oxyCODONE HCL ORAL CONC 20 MG/ML SYRINGE PO SCH ×2 (14:41→21:01)
--- NOTE | 2017-02-27 18:25 | MP ---
cc: PAPITO ABREU M.D. DATE OF SURGERY: 02/23/2017 PREOPERATIVE DIAGNOSIS: Ventilator dependence. POSTOPERATIVE DIAGNOSIS: Ventilator dependence. OPERATION: Percutaneous tracheostomy. ANESTHESIA TIVA. SURGEON Parminder ESTIMATED BLOOD LOSS Minimal COMPLICATIONS None. Drains none SPECIMEN None. PROCEDURE IN DETAIL The patient had neck sterilely prepped and draped. See Dr. Dutta's dictation for the bronchoscopic portion of the procedure. Time-out was taken confirming the correct patient site procedure be performed. Skin and subcutaneous tissue was infiltrated local anesthetic and incision made two fingerbreadths above the sternal notch. An angiocatheter and not needle were passed into the trachea on the first attempt. The needle was withdrawn and a guidewire passed down the angiocatheter. The guidewire was seen to be passing toward the junie. The gas angiocatheter was removed and a tracheal punch passed over the guidewire. This was seen to enter into the trachea. The punch was removed and the blue rhino with the white catheter guide were passed over the guidewire. This entered easily into the trachea. The assembly was removed. A 28-Kazakh tracheostomy guide was utilized with in a #8 percutaneous tracheostomy tube with the white catheter guide. This entire assembly was passed over the guidewire and seen to pass into the trachea by the bronchoscope via the endotracheal tube which had been withdrawn to 18 cm. The catheter guide green guidewire and the tracheostomy guide were all removed simultaneously. The bronchoscope was passed and was placed into the tracheostomy and confirmed that the tracheostomy was tube was in the trachea. The balloon was inflated. The obturator inserted and the circuit switched over to the tracheostomy tube. The tracheostomy tube was fixed with four 2-0 Prolene sutures. A tracheostomy dressing was placed under the tracheostomy tube and the Velcro strips were applied behind the neck. Stat chest x-ray was obtained which demonstrated no pneumothorax. The patient tolerated the procedure well. MD EDUARDO Payne/jordon /10:39 AM /6:21 PM
[2017-02-27] MEDS: hydrALAZINE HCL 25 MG TAB PO SCH (21:01)
[2017-02-27] MEDS: QUEtiapine FUMARATE 25 MG TAB PO SCH (21:01)
[2017-02-28] VITALS (20 sets, daily range): BP systolic 121–174; BP diastolic 62–93; PULSE 72–102; RESP 15–21; TEMP 97.2–98.9; O2SAT 99–100
[2017-02-28] MEDS: PROPOFOL 1000 MG/100 ML INJ 100 ML IV SCH ×2 (00:36→08:41)
[2017-02-28] MEDS: METOPROLOL TARTRATE 5 MG/5 ML VIAL IV PUSH SCH ×5 (00:36→22:29)
[2017-02-28] MEDS: oxyCODONE HCL ORAL CONC 20 MG/ML SYRINGE PO SCH ×4 (02:59→20:48)
--- NOTE | 2017-02-28 03:49 | RADRPT ---
EXAM DATE/TIME: 02/28/2017 02:22 [place] COMPARISON: CHEST SINGLE AP, February 23, 2017, 11:49. INDICATIONS : Short of breath. MEDICAL HISTORY : Bibasilar infiltrates.Sepsis. SURGICAL HISTORY : None. ENCOUNTER: Subsequent ACUITY: 1 week PAIN SCORE: 10/10 LOCATION: Bilateral chest FINDINGS: The tracheostomy tube remains in place. The NG tube has been removed. No evidence of pneumothorax. Th ere continue to be pulmonary infiltrates in both lung bases as well as pleural effusions. The small r ight-sided chest tube is no longer in the pleural space. The tip of the small chest tube is in the olivier bcutaneous soft tissues along the right chest wall. CONCLUSION: 1. The small right-sided chest tube is no longer in the right pleural space. The tip is in the subcut aneous soft tissues along the right chest wall. Recommend complete removal. 2. No evidence of pneumothorax. 3. Bibasilar pulmonary infiltrates with effusions. Stevie Fleming MD on February 28, 2017 at 3:45 Board Certified Radiologist. This report was verified electronically.
[2017-02-28] MEDS: CEFEPIME INJ 2,000 MG in SODIUM CHLORIDE 0.9% INJ 100 ML IV SCH ×2 (04:41→16:10)
[2017-02-28] MEDS: FREE WATER G-TUBE SCH ×4 (06:00→18:00)
[2017-02-28] MEDS: INSULIN NovoLIN REGULAR SUPPLEMENTAL SCALE SQ SCH ×4 (06:00→18:00)
[2017-02-28] MEDS: ARTIFICIAL TEARS OPTH SOLN 15 ML BTL EACH EYE SCH ×3 (06:09→22:29)
[2017-02-28] MEDS: METOCLOPRAMIDE HCL 10 MG/2 ML VIAL IV PUSH SCH ×3 (06:10→22:29)
[2017-02-28] MEDS: CHLORHEXIDINE 0.12% (ORAL KIT) 15 ML CUP MT SCH ×2 (08:00→20:00)
[2017-02-28] MEDS: ASPIRIN 81 MG CHEW TAB CHEW SCH (08:40)
[2017-02-28] MEDS: QUEtiapine FUMARATE 25 MG TAB PO SCH ×2 (08:40→20:47)
[2017-02-28] MEDS: SENNOSIDES SYRUP 8.8 MG/5 ML CUP PO SCH ×2 (08:40→20:47)
[2017-02-28] MEDS: DOCUSATE SODIUM 100 MG/10 ML UDC PO SCH ×2 (08:40→20:47)
[2017-02-28] MEDS: LACTOBACILLUS ACIDOPHILUS TAB PO SCH ×3 (08:40→18:15)
[2017-02-28] MEDS: fentaNYL DRIP 250 ML IV SCH (08:41)
[2017-02-28] MEDS: hydrALAZINE HCL 25 MG TAB PO SCH ×2 (08:41→20:47)
--- NOTE | 2017-02-28 09:56 | HHI.IDPN ---
Subjective Subjective Remarks Notes reviewed Temps ok On CPAP On the vent , S/P trach 02/23 S/P PEG 02/26 No further bleeding in trach site BP ok, not on pressors is an 86 y/o AAM (B[place] by ) with Dementia who presented with worsening mentation and diagnosed with Pneumonia and Cdiff positive diarrhea. PM records from 2006 indicate no allergies no surgeries. ID following for PNA and Cdiff present on admission. Antibiotics Vancomycin Cefepime Lines Line sites with no evidence of infection Past Medical History Dementia. Allergies: Coded Allergies: No Known Allergies (Verified , 11/22/06) UNOBTAINABLE (Unverified , 02/09/17) Objective . Vital Signs Date Time Temp Pulse Resp B/P Pulse Ox O2 Delivery O2 Flow Rate FiO2 02/28/17 08:51 35 02/28/17 07:32 100 35 02/28/17 06:00 91 02/28/17 04:34 99 35 02/28/17 04:00 79 02/28/17 04:00 98.9 79 16 144/74 100 02/28/17 04:00 35 02/28/17 03:59 16 02/28/17 02:00 72 02/28/17 01:19 100 35 02/28/17 00:00 35 02/28/17 00:00 75 02/28/17 00:00 98.9 75 16 121/62 100 02/27/17 22:11 100 35 02/27/17 22:00 70 02/27/17 20:00 35 02/27/17 20:00 75 02/27/17 20:00 99.4 75 16 133/71 100 02/27/17 19:16 100 35 02/27/17 18:00 77 02/27/17 16:00 97.8 84 16 129/61 100 02/27/17 16:00 84 02/27/17 16:00 35 02/27/17 15:09 100 35 02/27/17 14:00 68 02/27/17 12:00 98.2 72 16 139/66 100 02/27/17 12:00 72 02/27/17 12:00 35 02/27/17 11:44 99 35 02/27/17 10:00 71 02/27/17 02/27/17 02/28/17 15:00 23:00 07:00 Intake Total 872 ml 1162 ml 883 ml Output Total 235 ml 325 ml 250 ml Balance 637 ml 837 ml 633 ml IV Total 872 ml 901 ml 462 ml Tube Feeding 0 ml 201 ml 221 ml Other 60 ml 200 ml Output Urine Total 235 ml 325 ml 250 ml Tube Feeding Residual Discard 0 ml 0 ml Chest Tube Drainage Total 0 ml Bladder Scan Volume Amount # Bowel Movements 0 0 0 . Laboratory Tests Test 02/27/17 04:35 White Blood Count 8.4 TH/MM3 Red Blood Count 3.13 MIL/MM3 Hemoglobin 9.3 GM/DL Hematocrit 28.9 % Mean Corpuscular Volume 92.6 FL Mean Corpuscular Hemoglobin 29.8 PG Mean Corpuscular Hemoglobin 32.2 % Concent Red Cell Distribution Width 15.4 % Platelet Count 177 TH/MM3 Mean Platelet Volume 8.3 FL Neutrophils (%) (Auto) 77.2 % Lymphocytes (%) (Auto) 11.5 % Monocytes (%) (Auto) 9.3 % Eosinophils (%) (Auto) 1.0 % Basophils (%) (Auto) 1.0 % Neutrophils # (Auto) 6.5 TH/MM3 Lymphocytes # (Auto) 1.0 TH/MM3 Monocytes # (Auto) 0.8 TH/MM3 Eosinophils # (Auto) 0.1 TH/MM3 Basophils # (Auto) 0.1 TH/MM3 CBC Comment DIFF FINAL Differential Comment Laboratory Tests Test 02/27/17 04:35 Sodium Level 145 MEQ/L Potassium Level 3.8 MEQ/L Chloride Level 116 MEQ/L Carbon Dioxide Level 21.5 MEQ/L Anion Gap 8 MEQ/L Blood Urea Nitrogen 23 MG/DL Creatinine 1.47 MG/DL Estimat Glomerular Filtration 55 ML/MIN Rate Random Glucose 104 MG/DL Calcium Level 7.4 MG/DL Protein Corrected Calcium 7.8 MG/DL Phosphorus Level 2.0 MG/DL Magnesium Level 2.0 MG/DL Total Bilirubin 0.7 MG/DL Aspartate Amino Transf 43 U/L (AST/SGOT) Alanine Aminotransferase 19 U/L (ALT/SGPT) Alkaline Phosphatase 54 U/L Total Protein 6.4 GM/DL Albumin 1.6 GM/DL Imaging Chest X-Ray 02/28/17 0600 Signed Impressions: Service Date/Time: Tuesday, February 28, 2017 02:22 - CONCLUSION: 1. The small right-sided chest tube is no longer in the right pleural space. The tip is in the subcutaneous soft tissues along the right chest wall. Recommend complete removal. 2. No evidence of pneumothorax. 3. Bibasilar pulmonary infiltrates with effusions. Stevie Fleming MD Chest X-Ray 02/23/17 0600 Signed Impressions: Service Date/Time: Thursday, February 23, 2017 04:01 - CONCLUSION: Unchanged bibasilar infiltrates. Kaiser Valiente Jr., MD Chest X-Ray 02/23/17 0000 Signed Impressions: Service Date/Time: Thursday, February 23, 2017 11:49 - CONCLUSION: Bibasilar opacities are present may be due to a combination of consolidation and or pleural effusion. Cheyanne Reveles MD Chest X-Ray 02/22/17 0600 Signed Impressions: Service Date/Time: February 03:16 - CONCLUSION: Continue consolidation both lung bases right worse the left. Upper lungs are clear. ET tube in good position. Sanjay Watts MD Neck Magnetic Resonance Angiography 02/19/17 0000 Signed Impressions: Service Date/Time: Sunday, February 19, 2017 09:18 - CONCLUSION: 1. 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 Left vertebral emanates directly from the arch. 2. Otherwise, cervical vessels are all patent with no significant stenosis. Patient is slightly right vertebral dominant distally. Robbie Huggins MD Head Magnetic Resonance Angiography 02/19/17 0000 Signed Impressions: Service Date/Time: Sunday, February 19, 2017 09:18 - CONCLUSION: 1. 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 Intracranial vessels are otherwise patent. 2. No aneurysmal disease. 3. Anatomic variant of the [place] as above. Patient is right vertebral dominant. Robbie Huggins MD Chest X-Ray 02/19/17 0000 Signed Impressions: Service Date/Time: Sunday, February 19, 2017 11:17 - CONCLUSION: No appreciable change in bilateral pleural effusions bibasilar consolidation and/or compressive collapse and probable mild case of pulmonary edema. Cheyanne Reveles MD Physical Exam GENERAL: Opens eye when stimulated. NAD SKIN: Warm and dry, no generalized rash. HEENT: [place] conjunctivae. No scleral icterus. No injection or drainage. Moist mucosa NECK: Trach in place, site ok, no blood. Supple CARDIOVASCULAR: Regular S1S2 RESPIRATORY: Scattered rhonchi GASTROINTESTINAL: Abdomen distended, bowel sounds are present, hypoactive. PEG site ok. Some grimacing with palpation MUSCULOSKELETAL: Extremities without clubbing, cyanosis, or pedal edema. Hands edematous NEUROLOGICAL: Sedated PSYCH: Unable to assess LINE: PIV with no evidence of infection Assessment & Plan Remarks IMPRESSION Respiratory failure,S/P trach - S/P RX Aspiration, S/P Rx MV and TV vegetation on recent echo, all BC have been negative - ?GPC, ?GNR - initial echo negative, and this is his second echo that showed the vegetation Has R effusion, has CT in place Pneumonia present on admission: likely aspiration in setting of dementia. S/P Rx C diff positive, clinically resolved Ongoing aspiration. Dementia Acute metabolic encephalopathy Fevers: Concomitant antibiotics for Pneumonia ppting Cdiff, ongoing aspiration - temps better. Renal insufficiency, better Vomiting, better RECOMMENDATION Continue IV Vanco - Pharm doing dosing - aim for trough 15-20 Continue Cefepime 4 week of Abx would be till March 20 Monitor temps Monitor progress Weaning per CCM Tricia Garcia MD Feb 28, 2017 09:56
--- NOTE | 2017-02-28 10:27 | HHI.CCPN ---
Subjective Remarks/Hospital Course This is a 86yM who presented from home with altered mental status and end-stage dementia. His hospital course has been complicated by C. Diff and pneumonia for which he is on appropriate therapy. He has been noted to have [id number] aspiration during this hospital stay and has been NPO. Today, a rapid response was called for acute respiratory distress and hypoxia. I was called by Dr. Velez at the rapid response. He believe this is an aspiration event given the patient's clinical history. I immediately went and evaluated the patient. He is labored and in distress. his spo2 is 93% on non-rebreather. He is also in what appears to be new-onset atrial fibrillation with RVR and a HR 160s. Brief review of the pertinent laboratory data demonstrate worsening acute kidney injury, worsening anion-gap metabolic acidosis. Critical care medicine is consulted to evaluate and manage his severe respiratory distress and afib RVR. Unfortunately, the patient is obtunded and cannot provide any additional history. 02/13: no clinical improvements. remains in multiorgan system failure. diltiazem drip weaned to off, but remains on phenylephrine. talked with nephrology who feel clinically, despite some element of JVD, that patient is clinically intravascularly hypovolemic and they recommend gentle ivf hydration, which I am ok with as a trial. mental status poor. kidney injury persists. palliative involved. apparently daughter is not health care surrogate legally, but has been making decisions in the outpatient setting. multiple disagreements within the family. appreciate palliative involvement. 02/14: Renal function continues to worsen and today 57/4.1. D/w Nephrology. If family wants everything done, will need to proceed with HD. Tmax 101.1. ID following 02/15: Remains critically ill, did not tolerate brief CPAP trial. CXR shows mod to large R pl effusion. MAXIMUM TEMPERATURE 100.5. Creatinine slightly improved with urine output more than 1.4 L 02/16: Patient remains intubated, lightly sedated.. Did not tolerate C-peptide yesterday due to tachypnea. CT of the chest shows moderately large right effusion plan for thoracentesis 02/17: Tmax 100.7. No bowel movement since 02/12. On sedation vacation withdrawals but does not follow commands. Tolerating tube feeds at goal. 02/18: Afebrile. One bowel movement overnight. Tolerating tube feeding. Placement of 10 Welsh pigtail catheter with 600 cc likely transudative effusion. Tachycardic this AM. 02/19: Currently down for CT abdomen/pelvis with distended abdomen. Also MRA brain/neck with acute/subacute bifrontal CVA. Neurology consult pending. Will likely need tracheostomy. 02/20: Noted emesis last night [address] abdomen/pelvis unremarkable. Moderate gastric output. Started on Reglan. Positive BM. 02/21: Afebrile. Tolerating trickle feeds. One bowel movement. Noted echocardiogram report yesterday. Discussed with Dr. Garcia - blood cultures 2, vancomycin. Reassess in a.m.. Attempting to obtain consent for tracheostomy with . 02/22: Neuro exam unchanged. Mental status will not permit extubation. UO adequate, creat improving. Tracheostomy tomorrow 02/23: Creat continues to improve, no change in mentation. Trach with Parminder today, GI consulted for PEG placement. 02/24: Afebrile. Status post tracheostomy by Dr. Zurita yesterday. Unable to replace gastric tube secondary to bleeding. Plan for PEG on Sunday. 02/25: Currently afebrile. Tracheostomy without bleeding. Hypertensive requiring when necessary's. Plan for PEG Monday 02/26: Afebrile. Check yesterday was unpacked last night. Repacked today. On sedation. Plan for PEG today. Subjective: 02/27: Afebrile. Chest without bleeding. Continues to be on sedation due to agitation. PEG tube yesterday without competition. Plan remove chest tube today. Objective Vital Signs Date Time Temp Pulse Resp B/P Pulse Ox O2 Delivery O2 Flow Rate FiO2 02/28/17 10:11 100 35 02/28/17 06:00 91 02/28/17 04:00 98.9 16 144/74 Intake and Output 02/27/17 02/27/17 02/28/17 08:00 16:00 00:00 Intake Total 654 ml 872 ml 1162 ml Output Total 250.0 ml 235 ml 325 ml Balance 404.0 ml 637 ml 837 ml Result Diagram: 02/27/17 0435 02/27/17 043 Imaging Last Impressions Chest X-Ray 02/28/17 0600 Signed Impressions: Service Date/Time: Tuesday, February 28, 2017 02:22 - CONCLUSION: 1. The small right-sided chest tube is no longer in the right pleural space. The tip is in the subcutaneous soft tissues along the right chest wall. Recommend complete removal. 2. No evidence of pneumothorax. 3. Bibasilar pulmonary infiltrates with effusions. Stevie Fleming MD Neck Magnetic Resonance Angiography 02/19/17 0000 Signed Impressions: Service Date/Time: Sunday, February 19, 2017 09:18 - CONCLUSION: 1. 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 Left vertebral emanates directly from the arch. 2. Otherwise, cervical vessels are all patent with no significant stenosis. Patient is slightly right vertebral dominant distally. Robbie Huggins MD Head Magnetic Resonance Angiography 02/19/17 0000 Signed Impressions: Service Date/Time: Sunday, February 19, 2017 09:18 - CONCLUSION: 1. 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 Intracranial vessels are otherwise patent. 2. No aneurysmal disease. 3. Anatomic variant of the [place] of [place] as above. Patient is right vertebral dominant. Robbie Huggins MD Chest CT 02/16/17 0000 Signed Impressions: Service Date/Time: Thursday, February 16, 2017 13:26 - CONCLUSION: 1. Moderate to large right and small left pleural effusion with associated compressive atelectasis. There additionally is airspace consolidation in the right lower lobe. 2. Small pericardial effusion. 3. There are 2 nodules in the right upper lobe measuring 5 mm and 10 mm. Suggest attention to these at followup imaging. Tra Ma MD Brain MRI 02/16/17 0000 Signed Impressions: Service Date/Time: Thursday, February 16, 2017 13:44 - CONCLUSION: Atrophy and extensive white matter disease as well as micro-bleeds the route the cerebral hemispheres and cerebellum. Punctate foci of acute infarction are suspected within the bilateral frontal white matter as described above. Scott Garcia MD Abdomen/Pelvis CT 02/16/17 0000 Signed Impressions: Service Date/Time: Thursday, February 16, 2017 13:26 - CONCLUSION: 1. Diffuse body wall edema, bilateral effusions, pericardial effusion and lower lobe atelectasis and consolidation. 2. Atherosclerosis. Scott Garcia MD Abdomen X-Ray 02/15/17 0000 Signed Impressions: Service Date/Time: February 11:42 - CONCLUSION: Nonspecific abdomen appearance. Tra Garibay MD Head CT 02/07/171946 Signed Impressions: Service Date/Time: Tuesday, February 07, 2017 20:03 - CONCLUSION: No acute intracranial injury Tra Garibay MD Objective Remarks GENERAL: 86-year-old [place] male, critically ill currently on ventilator via tracheostomy SKIN: Warm and dry. No rash HEAD: Atraumatic. Normocephalic. EYES: Pupils equal and round about 3-4 mm bilaterally and reactive. No scleral icterus. No injection or drainage. ENT: No nasal bleeding or discharge. Mucous membranes pink and moist. Oropharynx without erythema. Tracheostomy site is clean dry and intact with no drainage NECK: Trachea midline. Minimal JVD. CARDIOVASCULAR: RRR. S1, S2. No S4. Faint systolic murmur 2 out of 6 RESPIRATORY: Improved breath sounds/aeration throughout the right lung field since placement of pigtail catheter. Few crackles in bases bilaterally. No wheeze GASTROINTESTINAL: Abdomen slightly protuberant. Nontender. Hypoactive bowel sounds are appreciated. PEG tube site is clean dry and intact : Scrotal edema positive MUSCULOSKELETAL: Extremities with 1+ upper and lower extremity pitting edema. No obvious deformities. NEUROLOGICAL: Arousable on sedation vacation but not following commands. Positive gag. Positive corneal reflex. 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 Daily sedation vacation CT head 02/07 negative for acute disease MRI brain 02/16 revealed increased fluid in the bilateral centrum semi-ovale and PV WM, remote basal ganglia infarcts bilaterally and PV WM. Punctuate micro- bleeds throughout. MRA brain 02/19 revealed left P2 segment DIAMOND PICKER high-grade stenosis MRI neck - 02/19 - Anatomical Variant Cir., [place]. Left vertebral takes off from aortic arch. Neurology consult Dr. Avalos appreciated. Noted echo 02/12 no vegetations. 02/19 revealed 2 x 4 mm mitral valve leaflet and tricuspid valve lateral leaflet likely vegetation. - See infectious disease Not a anticoagulation candidate per neurology due to micro-hemorrhages. Currently on aspirin 81 mg daily EEG 02/16 reveals moderate to severe encephalopathy. No epileptiform activity. Continue Seroquel 25 twice a day and oxycodone 5 every 6 hours and wean off IV sedatives Respiratory: Acute hypoxic respiratory failure Aspiration pneumonitis Cgpyi-[id number]-[id number] aspiration Mod to large R effusion/small left pleural effusion Right upper lobe pulmonary nodules 5 and 10 mm. Recommend follow up CT in 3-6 months [facility] 16/550/1.11/11/34 -- vent bundle Bronchodilator therapy every 6 hours with albuterol every 2 hours for breakthrough -- HOB at 30 degrees -- wean fiO2 for goal spo2 > 90% CT chest 02/16 revealed moderate to large right pleural effusion and atelectasis/ small left pleural effusion. Status post placement of pigtail catheter right effusion 03/19. -40 cm. 0 ml SS overnight. We'll place to water seal. If no pneumothorax in a.m. will remove .. Tracheostomy 02/[address] Zurita, PSV trial today 19/03 at 40% tolerating 1 hour Cardiovascular: Atrial Fibrillation with Rapid Ventricular Response- resolved. Sinus tachycardia Distributive shock-resolved Acute systolic heart failure Small pericardial effusion Echocardiogram 02/12 revealed EF 30-35%. Moderate TR. MARIA 53 mmHg. revealed EF 35%. Hypokinesis global. Small Mobile densities tricuspid and mitral valve ? vegetation question right MARIA 52 mmHg. -- Off Cardizem drip for HR control Home medications metoprolol 50 mg daily, losartan 100 mg daily and hydralazine 50 mg twice a day currently on hold. --Continue low-dose Lopressor 5 mill grams IV every 6 with holding parameters Hydralazine 25 twice a day Renal: Acute Kidney Injury secondary to ATN secondary to hypoperfusion Bumex 1 mg IV q12 per nephrology has been discontinued Nephrology following. Renal function improving cr On free water 100 every 6. Continue Zimmerman creat steadily improving FEN/GI: Acute protein calorie malnutrition- severe C.Difficile Colitis Diarrhea Acute on chronic Aspiration Constipation TF with Jevity 1.5 goal 60 cc an hour resume 02/27 Colace twice a day/Senokot twice a day CT abdomen/pelvis revealed left kidney protrusion, bilateral pleural effusions and small pericardial effusion. Significant edema Repeat CT abdomen/pelvis with distended abdomen. Revealed right L1/left L3 transverse process fracture. Anasarca. PEG tube by Dr. Cox Heme/ID: C. 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 Garcia following ABX per ID Discontinued Cefepime 02/21. Discontinue azithromycin 02/16, Continue Flagyl, for aspiration and C diff. Initiated vancomycin and cefepime after blood cultures 2 drawn 02/21 for possible endocarditis tricuspid valve/mitral valve. Negative to date Pertinent cultures 02/07 - blood cultures 2 - no growth 02/08 - stool -- C. difficile positive 02/09 - blood cultures 2 - no growth 02/12 - urine - no growth 02/13 - sputum - no growth 02/15 - blood cultures 2 - no growth 02/18 - urine - no growth 02/21 - blood no growth to date Endocrine: Hyperglycemia of critical illness -- SSI, q6h, med scale Prophylaxis: SCDs, SQH held with micro-hemorrhages. Resume when clinically indicated, Protonix for GI prophylaxis Critical Care: Level 2 Geraldine Eddie [phone] is health care proxy. Daughter in charge of finances Gerry Mike MD Feb 28, 2017 10:27
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
[2017-02-28] MEDS ORDERED: ALBUMIN HUMAN 25% 25 GM/100 ML BAGP IV ONE (14:30)
[2017-02-28] MEDS: RESP: ALBUTEROL 1.25 MG/3 ML NEB (PRN) NEB (15:10)
[2017-02-28 15:34] LABS: AUTOMATED NEUTROPHIL # 6.3 TH/MM3 (1.8-7.7); BASOPHIL % 0.6 % (0.0-2.0); EOSINOPHIL # 0.1 TH/MM3 (0-0.4); EOSINOPHIL % 1.3 % (0.0-4.0); HEMATOCRIT 28.9 % (39.0-51.0); HEMO FLAGS DIFF FINAL; LYMPH % 13.9 % (9.0-44.0); LYMPHOCYTE # 1.1 TH/MM3 (1.0-4.8); MEAN CELL VOLUME 90.8 FL (80.0-100.0); MEAN CORPUSCULAR HEMOGLOBIN 28.7 PG (27.0-34.0); MEAN CORPUSCULAR HGB CONC 31.6 % (32.0-36.0); MONO % 8.8 % (0.0-8.0); NEUT % 75.4 % (16.0-70.0); PLATELET COUNT 212 TH/MM3 (150-450); RED BLOOD COUNT 3.18 MIL/MM3 (4.50-5.90); RED CELL DISTRIBUTION WIDTH 15.1 % (11.6-17.2); WHITE BLOOD COUNT 8.3 TH/MM3 (4.0-11.0)
[2017-02-28 15:52] LABS: BICARBONATE 20.1 MEQ/L (21.0-32.0); POTASSIUM 3.9 MEQ/L (3.5-5.1)
[2017-02-28] MEDS: VANCOMYCIN INJ 1,500 MG in SODIUM CHLORID 0.9% 500 ML INJ 500 ML IV SCH (16:11)
[2017-02-28] MEDS ORDERED: POLYETHYLENE GLYCOL 17 GM PKG PO ONE (17:15)
[2017-02-28] MEDS ORDERED: METHYLNALTREXONE BROMIDE 12 MG/0.6 ML VIAL SQ ONE (17:15)
[2017-02-28] MEDS: LACTULOSE SYRUP 20 GM/30 ML CUP PO SCH ×2 (18:15→20:47)
[2017-02-28] MEDS: BACITRACIN TOP OINT 15 GM TUBE TOPICAL SCH (20:47)
[2017-03-01] VITALS (20 sets, daily range): BP systolic 138–191; BP diastolic 73–120; PULSE 82–128; RESP 12–20; TEMP 98.6–100.2; O2SAT 99–100
[2017-03-01] MEDS: oxyCODONE HCL ORAL CONC 20 MG/ML SYRINGE PO SCH ×4 (02:24→21:09)
[2017-03-01] MEDS: CEFEPIME INJ 2,000 MG in SODIUM CHLORIDE 0.9% INJ 100 ML IV SCH ×2 (03:45→13:43)
[2017-03-01] MEDS: METOCLOPRAMIDE HCL 10 MG/2 ML VIAL IV PUSH SCH ×3 (05:35→22:51)
[2017-03-01] MEDS: METOPROLOL TARTRATE 5 MG/5 ML VIAL IV PUSH SCH ×4 (05:35→22:53)
[2017-03-01] MEDS: FREE WATER G-TUBE SCH ×4 (05:36→18:00)
[2017-03-01] MEDS: INSULIN NovoLIN REGULAR SUPPLEMENTAL SCALE SQ SCH ×4 (05:36→18:00)
[2017-03-01] MEDS: ARTIFICIAL TEARS OPTH SOLN 15 ML BTL EACH EYE SCH ×3 (05:36→22:50)
[2017-03-01 05:42] LABS: HEMATOCRIT 26.6 % (39.0-51.0); MEAN CELL VOLUME 90.3 FL (80.0-100.0); MEAN CORPUSCULAR HEMOGLOBIN 30.7 PG (27.0-34.0); PLATELET COUNT 205 TH/MM3 (150-450); RED BLOOD COUNT 2.95 MIL/MM3 (4.50-5.90); REVIEW FLAG FINAL; WHITE BLOOD COUNT 8.4 TH/MM3 (4.0-11.0)
[2017-03-01] MEDS: hydrALAZINE HCL 20 MG/ML VIAL IV PUSH PRN (05:55)
[2017-03-01 06:09] LABS: BICARBONATE 22.4 MEQ/L (21.0-32.0); POTASSIUM 4.3 MEQ/L (3.5-5.1)
[2017-03-01] MEDS: fentaNYL DRIP 250 ML IV SCH ×3 (06:20→21:22)
[2017-03-01] MEDS: CHLORHEXIDINE 0.12% (ORAL KIT) 15 ML CUP MT SCH ×2 (08:00→21:11)
[2017-03-01] MEDS: QUEtiapine FUMARATE 25 MG TAB PO SCH ×2 (08:02→21:10)
[2017-03-01] MEDS: hydrALAZINE HCL 25 MG TAB PO SCH ×2 (08:02→21:09)
[2017-03-01] MEDS: LACTOBACILLUS ACIDOPHILUS TAB PO SCH ×3 (08:03→17:25)
[2017-03-01] MEDS: DOCUSATE SODIUM 100 MG/10 ML UDC PO SCH ×2 (08:05→21:09)
[2017-03-01] MEDS: ASPIRIN 81 MG CHEW TAB CHEW SCH (08:05)
[2017-03-01] MEDS: LACTULOSE SYRUP 20 GM/30 ML CUP PO SCH ×4 (08:06→21:09)
[2017-03-01] MEDS: SENNOSIDES SYRUP 8.8 MG/5 ML CUP PO SCH ×2 (08:06→21:09)
[2017-03-01] MEDS: POLYETHYLENE GLYCOL 17 GM PKG PO SCH (08:06)
[2017-03-01] MEDS: COLLAGENASE OINT 30 GM TUBE TOPICAL SCH (08:07)
[2017-03-01] MEDS: BACITRACIN TOP OINT 15 GM TUBE TOPICAL SCH ×2 (08:07→21:11)
--- NOTE | 2017-03-01 09:29 | HHI.CCPN ---
Subjective Remarks/Hospital Course This is a 86yM who presented from home with altered mental status and end-stage dementia. His hospital course has been complicated by C. Diff and pneumonia for which he is on appropriate therapy. He has been noted to have lgdcj-ae-evmsoxh aspiration during this hospital stay and has been NPO. Today, a rapid response was called for acute respiratory distress and hypoxia. I was called by Dr. Velez at the rapid response. He believe this is an aspiration event given the patient's clinical history. I immediately went and evaluated the patient. He is labored and in distress. his spo2 is 93% on non-rebreather. He is also in what appears to be new-onset atrial fibrillation with RVR and a HR 160s. Brief review of the pertinent laboratory data demonstrate worsening acute kidney injury, worsening anion-gap metabolic acidosis. Critical care medicine is consulted to evaluate and manage his severe respiratory distress and afib RVR. Unfortunately, the patient is obtunded and cannot provide any additional history. 02/13: no clinical improvements. remains in multiorgan system failure. diltiazem drip weaned to off, but remains on phenylephrine. talked with nephrology who feel clinically, despite some element of JVD, that patient is clinically intravascularly hypovolemic and they recommend gentle ivf hydration, which I am ok with as a trial. mental status poor. kidney injury persists. palliative involved. apparently daughter is not health care surrogate legally, but has been making decisions in the outpatient setting. multiple disagreements within the family. appreciate palliative involvement. 02/14: Renal function continues to worsen and today 57/4.1. D/w Nephrology. If family wants everything done, will need to proceed with HD. Tmax 101.1. ID following 02/15: Remains critically ill, did not tolerate brief CPAP trial. CXR shows mod to large R pl effusion. MAXIMUM TEMPERATURE 100.5. Creatinine slightly improved with urine output more than 1.4 L 02/16: Patient remains intubated, lightly sedated.. Did not tolerate C-peptide yesterday due to tachypnea. CT of the chest shows moderately large right effusion plan for thoracentesis 02/17: Tmax 100.7. No bowel movement since 02/12. On sedation vacation withdrawals but does not follow commands. Tolerating tube feeds at goal. 02/18: Afebrile. One bowel movement overnight. Tolerating tube feeding. Placement of 10 [place] pigtail catheter with 600 cc likely transudative effusion. Tachycardic this AM. 02/19: Currently down for CT abdomen/pelvis with distended abdomen. Also MRA brain/neck with acute/subacute bifrontal CVA. Neurology consult pending. Will likely need tracheostomy. 02/20: Noted emesis last night [address] abdomen/pelvis unremarkable. Moderate gastric output. Started on Reglan. Positive BM. 02/21: Afebrile. Tolerating trickle feeds. One bowel movement. Noted echocardiogram report yesterday. Discussed with Dr. Garcia - blood cultures 2, vancomycin. Reassess in a.m.. Attempting to obtain consent for tracheostomy with . 02/22: Neuro exam unchanged. Mental status will not permit extubation. UO adequate, creat improving. Tracheostomy tomorrow 02/23: Creat continues to improve, no change in mentation. Trach with Parminder today, GI consulted for PEG placement. 02/24: Afebrile. Status post tracheostomy by Dr. Zurita yesterday. Unable to replace gastric tube secondary to bleeding. Plan for PEG on Sunday. 02/25: Currently afebrile. Tracheostomy without bleeding. Hypertensive requiring when necessary's. Plan for PEG Monday 02/26: Afebrile. Check yesterday was unpacked last night. Repacked today. On sedation. Plan for PEG today. 02/27: Afebrile. Chest without bleeding. Continues to be on sedation due to agitation. PEG tube yesterday without competition. Plan remove chest tube today. 02/28: Resting currently in bed. No change in neurological status. Tracheostomy without bleeding. No acute issues. Subjective: 03/01: Afebrile. More tremulous this a.m. upon removal of to prevent. Currently on PSV trial. Positive BM 2. Tolerating tube feeds at 35 cc an hour. Neurological status unchanged. Objective Vital Signs Date Time Temp Pulse Resp B/P Pulse Ox O2 Delivery O2 Flow Rate FiO2 03/01/17 08:40 35 03/01/17 08:40 100 03/01/17 06:00 98 03/01/17 05:55 188/87 03/01/17 04:00 99.8 16 Intake and Output 02/28/17 02/28/17 03/01/17 08:00 16:00 00:00 Intake Total 883 ml 888 ml 1091 ml Output Total 250.0 ml 215 ml 375.0 ml Balance 633.0 ml 673 ml 716.0 ml Result Diagram: 03/01/17 0516 03/01/17 0516 Imaging Last Impressions Chest X-Ray 02/28/17 0600 Signed Impressions: Service Date/Time: Tuesday, February 28, 2017 02:22 - CONCLUSION: 1. The small right-sided chest tube is no longer in the right pleural space. The tip is in the subcutaneous soft tissues along the right chest wall. Recommend complete removal. 2. No evidence of pneumothorax. 3. Bibasilar pulmonary infiltrates with effusions. Stevie Fleming MD Neck Magnetic Resonance Angiography 02/19/17 0000 Signed Impressions: Service Date/Time: Sunday, February 19, 2017 09:18 - CONCLUSION: 1. 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 Left vertebral emanates directly from the arch. 2. Otherwise, cervical vessels are all patent with no significant stenosis. Patient is slightly right vertebral dominant distally. Robbie Huggins MD Head Magnetic Resonance Angiography 02/19/17 0000 Signed Impressions: Service Date/Time: Sunday, February 19, 2017 09:18 - CONCLUSION: 1. 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 Intracranial vessels are otherwise patent. 2. No aneurysmal disease. 3. Anatomic variant of the [place] as above. Patient is right vertebral dominant. Robbie Huggins MD Chest CT 02/16/17 0000 Signed Impressions: Service Date/Time: Thursday, February 16, 2017 13:26 - CONCLUSION: 1. Moderate to large right and small left pleural effusion with associated compressive atelectasis. There additionally is airspace consolidation in the right lower lobe. 2. Small pericardial effusion. 3. There are 2 nodules in the right upper lobe measuring 5 mm and 10 mm. Suggest attention to these at followup imaging. Tra Ma MD Brain MRI 02/16/17 0000 Signed Impressions: Service Date/Time: Thursday, February 16, 2017 13:44 - CONCLUSION: Atrophy and extensive white matter disease as well as micro-bleeds the route the cerebral hemispheres and cerebellum. Punctate foci of acute infarction are suspected within the bilateral frontal white matter as described above. Scott Garcia MD Abdomen/Pelvis CT 02/16/17 0000 Signed Impressions: Service Date/Time: Thursday, February 16, 2017 13:26 - CONCLUSION: 1. Diffuse body wall edema, bilateral effusions, pericardial effusion and lower lobe atelectasis and consolidation. 2. Atherosclerosis. Scott Garcia MD Abdomen X-Ray 02/15/17 0000 Signed Impressions: Service Date/Time: February 11:42 - CONCLUSION: Nonspecific abdomen appearance. Tra Garibay MD Head CT 02/07/171946 Signed Impressions: Service Date/Time: Tuesday, February 07, 2017 20:03 - CONCLUSION: No acute intracranial injury Tra Garibay MD Objective Remarks GENERAL: 86-year-old [place] male, critically ill currently on ventilator via tracheostomy SKIN: Warm and dry. No rash HEAD: Atraumatic. Normocephalic. EYES: Pupils equal and round about 3-4 mm bilaterally and reactive. No scleral icterus. No injection or drainage. ENT: No nasal bleeding or discharge. Mucous membranes pink and moist. Oropharynx without erythema. Tracheostomy site is clean dry and intact with no drainage NECK: Trachea midline. Minimal JVD. CARDIOVASCULAR: RRR. S1, S2. No S4. Faint systolic murmur 2 out of 6 RESPIRATORY: Improved breath sounds/aeration throughout the right lung field since placement of pigtail catheter. Few crackles in bases bilaterally. No wheeze GASTROINTESTINAL: Abdomen slightly protuberant. Nontender. Hypoactive bowel sounds are appreciated. PEG tube site is clean dry and intact : Scrotal edema positive MUSCULOSKELETAL: Extremities with 1+ upper and lower extremity pitting edema. No obvious deformities. NEUROLOGICAL: Arousable on sedation vacation but not following commands. Positive gag. Positive corneal reflex. Moves all 4 extremity spontaneously and withdrawal Procedures None A/P Assessment and Plan Neuro/Psych: Acute metabolic encephalopathy End-stage dementia Right FLARE STITCHER high-grade stenosis Currently off propofol and Fentanyl drip at 150 is an hour for sedation and analgesia while intubated Goal of RASS -2. Daily sedation vacation CT head 02/07 negative for acute disease MRI brain 02/16 revealed increased fluid in the bilateral centrum semi-ovale and PV WM, remote basal ganglia infarcts bilaterally and PV WM. Punctuate micro- bleeds throughout. MRA brain 02/19 revealed left P2 segment FLARE STITCHER high-grade stenosis MRI neck - 02/19 - Anatomical Variant Cir., [place]. Left vertebral takes off from aortic arch. Neurology consult Dr. Avalos appreciated. Noted echo 02/12 no vegetations. 02/19 revealed 2 x 4 mm mitral valve leaflet and tricuspid valve lateral leaflet likely vegetation. - See infectious disease Not a anticoagulation candidate per neurology due to micro-hemorrhages. Currently on aspirin 81 mg daily EEG 02/16 reveals moderate to severe encephalopathy. No epileptiform activity. Continue Seroquel 50 twice a day and oxycodone 10 every 6 hours and wean off IV sedatives Respiratory: Acute hypoxic respiratory failure Aspiration pneumonitis [id number]-xt-eiglufx aspiration Mod to large R effusion/small left pleural effusion Right upper lobe pulmonary nodules 5 and 10 mm. Recommend follow up CT in 3-6 months [facility] 16//1.11/11/34 -- vent bundle Bronchodilator therapy every 6 hours with albuterol every 2 hours for breakthrough -- HOB at 30 degrees -- wean fiO2 for goal spo2 > 90% CT chest 02/16 revealed moderate to large right pleural effusion and atelectasis/ small left pleural effusion. Status post placement of pigtail catheter right effusion 02/17. Removed 02/28 Tracheostomy 02/[address] Zurita, PSV trial today 19/03 at 40% tolerating 1 hour Cardiovascular: Atrial Fibrillation with Rapid Ventricular Response- resolved. Sinus tachycardia Distributive shock-resolved Acute systolic heart failure Small pericardial effusion Echocardiogram 02/12 revealed EF 30-35%. Moderate TR. MARIA 53 mmHg. revealed EF 35%. Hypokinesis global. Small Mobile densities tricuspid and mitral valve ? vegetation question right MARIA 52 mmHg. -- Off Cardizem drip for HR control Home medications metoprolol 50 mg daily, losartan 100 mg daily and hydralazine 50 mg twice a day currently on hold. --Continue low-dose Lopressor 5 mill grams IV every 6 with holding parameters Hydralazine 25 twice a day Renal: Acute Kidney Injury secondary to ATN secondary to hypoperfusion Bumex 1 mg IV q12 per nephrology has been discontinued Nephrology following. Renal function improving cr On free water 150 every 6. Continue Zimmerman creat stable 1.5 today FEN/GI: Acute protein calorie malnutrition- severe C.Difficile Colitis Diarrhea Acute on chronic Aspiration Constipation TF with Jevity 1.5 goal 60 cc an hour resume 02/27. Currently at 35 Colace twice a day/Senokot twice a day CT abdomen/pelvis revealed left kidney protrusion, bilateral pleural effusions and small pericardial effusion. Significant edema Repeat CT abdomen/pelvis with distended abdomen. Revealed right L1/left L3 transverse process fracture. Anasarca. PEG tube by Dr. Cox Heme/ID: C. 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 Garcia following ABX per ID Discontinued Cefepime 02/21. Discontinue azithromycin 02/16, Continue Flagyl, for aspiration and C diff. Initiated vancomycin and cefepime after blood cultures 2 drawn 02/21 for possible endocarditis tricuspid valve/mitral valve. Negative to date Pertinent cultures 02/07 - blood cultures 2 - no growth 02/08 - stool -- C. difficile positive 02/09 - blood cultures 2 - no growth 02/12 - urine - no growth 02/13 - sputum - no growth 02/15 - blood cultures 2 - no growth 02/18 - urine - no growth 02/21 - blood no growth to date Endocrine: Hyperglycemia of critical illness -- SSI, q6h, med scale Prophylaxis: SCDs, SQH held with micro-hemorrhages. Resume when clinically indicated, Protonix for GI prophylaxis Critical Care: Level 2 Geraldine Morgan [phone] is health care proxy. Daughter in charge of finances Gerry Mike MD Mar 01, 2017 09:29
[2017-03-01] MEDS ORDERED: BUMETANIDE INJ 1 MG/4 ML VIAL IV PUSH ONE (09:30)
[2017-03-01] MEDS ORDERED: ALBUMIN HUMAN 25% 25 GM/100 ML BAGP IV ONE (10:00)
[2017-03-01] MEDS: VANCOMYCIN INJ 1,500 MG in SODIUM CHLORID 0.9% 500 ML INJ 500 ML IV SCH (10:59)
--- NOTE | 2017-03-01 11:54 | RADRPT ---
EXAM DATE/TIME: 03/01/2017 11:23 [place] COMPARISON: CT BRAIN W/O CONTRAST, February 07, 2017, 20:03. INDICATIONS : Evaluate for tremors RADIATION DOSE: 42.52 CTDIvol (mGy) MEDICAL HISTORY : None SURGICAL HISTORY : None. ENCOUNTER: Initial ACUITY: 1 day PAIN SCALE: Non-responsive LOCATION: cranial TECHNIQUE: Multiple contiguous axial images were obtained of the head. Using automated exposure control and adj ustment of the mA and/or kV according to patient size, radiation dose was kept as low as reasonably a chievable to obtain optimal diagnostic quality images. FINDINGS: There is no evidence for intracranial hemorrhage, mass effect, mass lesions, or edema. The visualize d bony structures appear intact. Moderate degree of brain atrophy is seen. Moderate periventricular white matter changes are seen nonspecific mostly consistent with chronic small vessel ischemic change s. There are no signs of acute infarction for technique. There is chronic sinusitis within multiple sinuses including eithmoid air cells, maxillary sphenoid sinuses and bilateral mastoid air cells. IMPRESSION: Chronic small vessel ischemic and atrophic changes, chronic sinusitis. Cheyanne Reveles MD on March 01, 2017 at 11:50 Board Certified Radiologist. This report was verified electronically.
--- NOTE | 2017-03-01 14:50 | HHI.IDPN ---
Subjective Subjective Remarks Notes reviewed Temps ok Getting EEG done On the vent , S/P trach 02/23 S/P PEG 02/26 No further bleeding in trach site BP ok, not on pressors is an 86 y/o AAM ([place] by ) with Dementia who presented with worsening mentation and diagnosed with Pneumonia and Cdiff positive diarrhea. PM records from 2006 indicate no allergies no surgeries. ID following for PNA and Cdiff present on admission. Antibiotics Vancomycin Cefepime Lines Line sites with no evidence of infection Past Medical History Dementia. Allergies: Coded Allergies: No Known Allergies (Verified , 11/22/06) UNOBTAINABLE (Unverified , 02/09/17) Objective . Vital Signs Date Time Temp Pulse Resp B/P Pulse Ox O2 Delivery O2 Flow Rate FiO2 03/01/17 11:52 100 35 03/01/17 08:40 35 03/01/17 08:40 100 35 03/01/17 06:00 98 03/01/17 05:55 188/87 03/01/17 04:22 100 35 03/01/17 04:00 35 03/01/17 04:00 99.8 128 16 191/120 100 03/01/17 04:00 128 03/01/17 03:24 16 03/01/17 02:00 99.3 03/01/17 02:00 82 03/01/17 01:20 100 35 03/01/17 00:00 100.2 85 16 138/73 100 03/01/17 00:00 85 03/01/17 00:00 35 02/28/17 22:31 100 35 02/28/17 22:30 35 02/28/17 22:00 98 02/28/17 20:00 98.8 102 21 157/93 100 02/28/17 20:00 35 02/28/17 20:00 102 02/28/17 19:32 100 35 02/28/17 18:00 89 02/28/17 16:29 100 35 02/28/17 16:00 86 02/28/17 16:00 35 02/28/17 16:00 98.1 86 19 174/82 100 02/28/17 02/28/17 03/01/17 15:00 23:00 07:00 Intake Total 888 ml 1091 ml 857 ml Output Total 215 ml 375 ml 275 ml Balance 673 ml 716 ml 582 ml IV Total 302 ml 832 ml 430 ml Tube Feeding 86 ml 199 ml 197 ml Other 500 ml 60 ml 230 ml Output Urine Total 215 ml 375 ml 275 ml Tube Feeding Residual Discard 0 ml 0 ml 0 ml # Bowel Movements 0 0 2 . Laboratory Tests Test 02/28/17 03/01/17 14:39 05:16 White Blood Count 8.3 TH/MM3 8.4 TH/MM3 Red Blood Count 3.18 MIL/MM3 2.95 MIL/MM3 Hemoglobin 9.1 GM/DL 9.0 GM/DL Hematocrit 28.9 % 26.6 % Mean Corpuscular Volume 90.8 FL 90.3 FL Mean Corpuscular Hemoglobin 28.7 PG 30.7 PG Mean Corpuscular Hemoglobin 31.6 % 34.0 % Concent Red Cell Distribution Width 15.1 % 15.0 % Platelet Count 212 TH/MM3 205 TH/MM3 Mean Platelet Volume 10.1 FL 9.9 FL Neutrophils (%) (Auto) 75.4 % Lymphocytes (%) (Auto) 13.9 % Monocytes (%) (Auto) 8.8 % Eosinophils (%) (Auto) 1.3 % Basophils (%) (Auto) 0.6 % Neutrophils # (Auto) 6.3 TH/MM3 Lymphocytes # (Auto) 1.1 TH/MM3 Monocytes # (Auto) 0.7 TH/MM3 Eosinophils # (Auto) 0.1 TH/MM3 Basophils # (Auto) 0.0 TH/MM3 CBC Comment DIFF FINAL Differential Comment Laboratory Tests Test 02/28/17 03/01/17 14:39 05:16 Sodium Level 142 MEQ/L 142 MEQ/L Potassium Level 3.9 MEQ/L 4.3 MEQ/L Chloride Level 114 MEQ/L 114 MEQ/L Carbon Dioxide Level 20.1 MEQ/L 22.4 MEQ/L Anion Gap 8 MEQ/L 6 MEQ/L Blood Urea Nitrogen 19 MG/DL 20 MG/DL Creatinine 1.36 MG/DL 1.51 MG/DL Estimat Glomerular Filtration 60 ML/MIN 53 ML/MIN Rate Random Glucose 120 MG/DL 117 MG/DL Calcium Level 7.5 MG/DL 7.7 MG/DL Imaging Chest X-Ray 02/28/17 0600 Signed Impressions: Service Date/Time: Tuesday, February 28, 2017 02:22 - CONCLUSION: 1. The small right-sided chest tube is no longer in the right pleural space. The tip is in the subcutaneous soft tissues along the right chest wall. Recommend complete removal. 2. No evidence of pneumothorax. 3. Bibasilar pulmonary infiltrates with effusions. Stevie Fleming MD Chest X-Ray 02/23/17 0600 Signed Impressions: Service Date/Time: Thursday, February 23, 2017 04:01 - CONCLUSION: Unchanged bibasilar infiltrates. Kaiser Valiente Jr., MD Chest X-Ray 02/23/17 0000 Signed Impressions: Service Date/Time: Thursday, February 23, 2017 11:49 - CONCLUSION: Bibasilar opacities are present may be due to a combination of consolidation and or pleural effusion. Cheyanne Reveles MD Chest X-Ray 02/22/17 0600 Signed Impressions: Service Date/Time: February 03:16 - CONCLUSION: Continue consolidation both lung bases right worse the left. Upper lungs are clear. ET tube in good position. Sanjay Watts MD Neck Magnetic Resonance Angiography 02/19/17 0000 Signed Impressions: Service Date/Time: Sunday, February 19, 2017 09:18 - CONCLUSION: 1. 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 Left vertebral emanates directly from the arch. 2. Otherwise, cervical vessels are all patent with no significant stenosis. Patient is slightly right vertebral dominant distally. Robbie Huggins MD Head Magnetic Resonance Angiography 02/19/17 0000 Signed Impressions: Service Date/Time: Sunday, February 19, 2017 09:18 - CONCLUSION: 1. 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 Intracranial vessels are otherwise patent. 2. No aneurysmal disease. 3. Anatomic variant of the [place] of [place] as above. Patient is right vertebral dominant. Robbie Huggins MD Chest X-Ray 02/19/17 0000 Signed Impressions: Service Date/Time: Sunday, February 19, 2017 11:17 - CONCLUSION: No appreciable change in bilateral pleural effusions bibasilar consolidation and/or compressive collapse and probable mild case of pulmonary edema. Cheyanne Reveles MD Physical Exam GENERAL: On the vent, NAD SKIN: Warm and dry, no generalized rash. HEENT: [place] conjunctivae. No scleral icterus. No injection or drainage. Moist mucosa NECK: Trach in place, site ok, no blood. Supple CARDIOVASCULAR: Regular S1S2 RESPIRATORY: Scattered rhonchi GASTROINTESTINAL: Abdomen distended, bowel sounds are present, hypoactive. PEG site ok. Some grimacing with palpation MUSCULOSKELETAL: Extremities without clubbing, cyanosis, or pedal edema. Hands edematous : Has significant increase in scrotal edema NEUROLOGICAL: Sedated PSYCH: Unable to assess LINE: PIV with no evidence of infection Assessment & Plan Remarks IMPRESSION Respiratory failure,S/P trach - S/P RX Aspiration, S/P Rx MV and TV vegetation on recent echo, all BC have been negative - ?GPC, ?GNR - initial echo negative, and this is his second echo that showed the vegetation Has R effusion, has CT in place Pneumonia present on admission: likely aspiration in setting of dementia. S/P Rx C diff positive, clinically resolved Ongoing aspiration. Dementia Acute metabolic encephalopathy Fevers: Concomitant antibiotics for Pneumonia ppting Cdiff, ongoing aspiration - temps better. Renal insufficiency, better Vomiting, better RECOMMENDATION Continue IV Vanco - Pharm doing dosing - aim for trough 15-20 Continue Cefepime 4 week of Abx would be till March 20 Monitor temps Monitor progress Weaning per CCM Tricia Garcia MD Mar 01, 2017 14:50
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
--- NOTE | 2017-03-01 19:17 | RADRPT ---
EXAM DATE/TIME: 03/01/2017 18:33 [facility] COMPARISON: CHEST SINGLE AP, February 28, 2017, 2:22. INDICATIONS : PICC line verification. MEDICAL HISTORY : Bibasilar infiltrates.Sepsis. SURGICAL HISTORY : None. ENCOUNTER: Subsequent ACUITY: 2 weeks PAIN SCORE: 10/10 LOCATION: Bilateral chest FINDINGS: Right subclavian PICC line is present with tip overlapping the expected region of the right atrium. B ilateral pleural effusions are present with avascular pulmonary edema not significantly changed. Foca l consolidation and or compressive collapse is also seen in both lung bases. Tracheostomy tube is pre sent in satisfactory position. CONCLUSION: Placement of a PICC line otherwise not significantly changed. Cheyanne Reveles MD on March 01, 2017 at 19:13 Board Certified Radiologist. This report was verified electronically.
[2017-03-01] MEDS: SODIUM CHLORIDE 0.9% FLUSH 10 ML FLUSH IV FLUSH PRN (22:55)
[2017-03-02] VITALS (21 sets, daily range): BP systolic 116–190; BP diastolic 58–87; PULSE 89–111; RESP 16–27; TEMP 99–100.7; O2SAT 93–100
[2017-03-02] MEDS: hydrALAZINE HCL 20 MG/ML VIAL IV PUSH PRN (02:23)
[2017-03-02] MEDS: oxyCODONE HCL ORAL CONC 20 MG/ML SYRINGE PO SCH ×4 (02:24→23:23)
[2017-03-02] MEDS: CEFEPIME INJ 2,000 MG in SODIUM CHLORIDE 0.9% INJ 100 ML IV SCH ×2 (04:06→14:24)
[2017-03-02] MEDS: METOPROLOL TARTRATE 5 MG/5 ML VIAL IV PUSH SCH ×3 (04:06→17:59)
[2017-03-02] MEDS: FREE WATER G-TUBE SCH ×4 (05:00→18:00)
[2017-03-02] MEDS: INSULIN NovoLIN REGULAR SUPPLEMENTAL SCALE SQ SCH ×5 (05:05→23:12)
[2017-03-02] MEDS: SODIUM CHLORIDE 0.9% FLUSH 10 ML FLUSH IV FLUSH PRN ×2 (05:09→08:02)
[2017-03-02 05:10] LABS: HEMATOCRIT 26.6 % (39.0-51.0); MEAN CORPUSCULAR HGB CONC 34.1 % (32.0-36.0); PLATELET COUNT 225 TH/MM3 (150-450); RED BLOOD COUNT 3.02 MIL/MM3 (4.50-5.90); RED CELL DISTRIBUTION WIDTH 15.3 % (11.6-17.2); REVIEW FLAG FINAL; WHITE BLOOD COUNT 10.8 TH/MM3 (4.0-11.0)
[2017-03-02] MEDS: METOCLOPRAMIDE HCL 10 MG/2 ML VIAL IV PUSH SCH ×3 (05:10→20:59)
[2017-03-02] MEDS: ARTIFICIAL TEARS OPTH SOLN 15 ML BTL EACH EYE SCH ×3 (05:11→21:00)
[2017-03-02 05:18] LABS: BICARBONATE 21.6 MEQ/L (21.0-32.0); POTASSIUM 3.7 MEQ/L (3.5-5.1)
[2017-03-02] MEDS: LACTULOSE SYRUP 20 GM/30 ML CUP PO SCH ×3 (07:34→17:59)
[2017-03-02] MEDS: POLYETHYLENE GLYCOL 17 GM PKG PO SCH (07:34)
[2017-03-02] MEDS: SENNOSIDES SYRUP 8.8 MG/5 ML CUP PO SCH ×2 (07:35→20:57)
[2017-03-02] MEDS: fentaNYL DRIP 250 ML IV SCH (08:00)
[2017-03-02] MEDS: hydrALAZINE HCL 25 MG TAB PO SCH ×2 (08:00→22:30)
[2017-03-02] MEDS: CHLORHEXIDINE 0.12% (ORAL KIT) 15 ML CUP MT SCH ×2 (08:00→20:56)
[2017-03-02] MEDS: ASPIRIN 81 MG CHEW TAB CHEW SCH (08:01)
[2017-03-02] MEDS: QUEtiapine FUMARATE 25 MG TAB PO SCH ×2 (08:01→22:30)
[2017-03-02] MEDS: ACETAMINOPHEN 500 MG CPLT PO PRN (08:01)
[2017-03-02] MEDS: DOCUSATE SODIUM 100 MG/10 ML UDC PO SCH ×2 (08:02→20:57)
[2017-03-02] MEDS: LACTOBACILLUS ACIDOPHILUS TAB PO SCH ×3 (08:02→17:59)
[2017-03-02] MEDS: SODIUM CHLORIDE 0.9% FLUSH 10 ML FLUSH IV FLUSH SCH (08:02)
[2017-03-02] MEDS: COLLAGENASE OINT 30 GM TUBE TOPICAL SCH (08:03)
[2017-03-02] MEDS: BACITRACIN TOP OINT 15 GM TUBE TOPICAL SCH ×2 (08:04→20:58)
[2017-03-02] MEDS: VANCOMYCIN INJ 1,500 MG in SODIUM CHLORID 0.9% 500 ML INJ 500 ML IV SCH (12:07)
--- NOTE | 2017-03-02 12:57 | HHI.IDPN ---
Subjective Subjective Remarks Notes reviewed Temps ok On CPAP, tolerating trials S/P trach 02/23 S/P PEG 02/26 Small amount of dark brown drainage around trach BP ok, not on pressors is an 86 y/o AAM ([place] by ) with Dementia who presented with worsening mentation and diagnosed with Pneumonia and Cdiff positive diarrhea. PM records from 2006 indicate no allergies no surgeries. ID following for PNA and Cdiff present on admission. Antibiotics Vancomycin Cefepime Lines Line sites with no evidence of infection Past Medical History Dementia. Allergies: Coded Allergies: No Known Allergies (Verified , 11/22/06) UNOBTAINABLE (Unverified , 02/09/17) Objective . Vital Signs Date Time Temp Pulse Resp B/P Pulse Ox O2 Delivery O2 Flow Rate FiO2 03/02/17 12:08 100 35 03/02/17 10:00 97 03/02/17 09:59 30 03/02/17 09:57 100 30 03/02/17 09:36 100 30 03/02/17 08:00 109 03/02/17 06:00 109 03/02/17 04:40 99 30 03/02/17 04:00 99.7 111 27 173/84 100 03/02/17 04:00 104 03/02/17 04:00 35 03/02/17 02:00 104 03/02/17 01:14 100 35 03/02/17 00:00 35 03/02/17 00:00 99.2 89 17 161/77 100 03/02/17 00:00 89 03/01/17 22:12 100 35 03/01/17 22:00 89 03/01/17 20:00 35 03/01/17 20:00 99.5 97 18 181/95 99 03/01/17 20:00 97 03/01/17 19:14 100 35 03/01/17 18:00 94 03/01/17 16:13 100 35 03/01/17 16:00 99.1 92 12 157/80 100 03/01/17 16:00 35 03/01/17 16:00 92 03/01/17 14:00 105 03/01/17 03/01/17 03/02/17 15:00 23:00 07:00 Intake Total 1280 ml 648 ml 621 ml Output Total 1350 ml 1000 ml 325 ml Balance -70 ml -352 ml 296 ml IV Total 844 ml 382 ml 300 ml Tube Feeding 196 ml 266 ml 171 ml Other 240 ml 150 ml Output Urine Total 1350 ml 1000 ml 325 ml Tube Feeding Residual Discard 0 ml # Bowel Movements 0 0 1 . Laboratory Tests Test 02/28/17 03/01/17 03/02/17 14:39 05:16 03:45 White Blood Count 8.3 TH/MM3 8.4 TH/MM3 10.8 TH/MM3 Red Blood Count 3.18 MIL/MM3 2.95 MIL/MM3 3.02 MIL/MM3 Hemoglobin 9.1 GM/DL 9.0 GM/DL 9.1 GM/DL Hematocrit 28.9 % 26.6 % 26.6 % Mean Corpuscular Volume 90.8 FL 90.3 FL 88.0 FL Mean Corpuscular Hemoglobin 28.7 PG 30.7 PG 30.0 PG Mean Corpuscular Hemoglobin 31.6 % 34.0 % 34.1 % Concent Red Cell Distribution Width 15.1 % 15.0 % 15.3 % Platelet Count 212 TH/MM3 205 TH/MM3 225 TH/MM3 Mean Platelet Volume 10.1 FL 9.9 FL 10.2 FL Neutrophils (%) (Auto) 75.4 % Lymphocytes (%) (Auto) 13.9 % Monocytes (%) (Auto) 8.8 % Eosinophils (%) (Auto) 1.3 % Basophils (%) (Auto) 0.6 % Neutrophils # (Auto) 6.3 TH/MM3 Lymphocytes # (Auto) 1.1 TH/MM3 Monocytes # (Auto) 0.7 TH/MM3 Eosinophils # (Auto) 0.1 TH/MM3 Basophils # (Auto) 0.0 TH/MM3 CBC Comment DIFF FINAL Differential Comment Laboratory Tests Test 02/28/17 03/01/17 03/02/17 14:39 05:16 03:45 Sodium Level 142 MEQ/L 142 MEQ/L 140 MEQ/L Potassium Level 3.9 MEQ/L 4.3 MEQ/L 3.7 MEQ/L Chloride Level 114 MEQ/L 114 MEQ/L 111 MEQ/L Carbon Dioxide Level 20.1 MEQ/L 22.4 MEQ/L 21.6 MEQ/L Anion Gap 8 MEQ/L 6 MEQ/L 7 MEQ/L Blood Urea Nitrogen 19 MG/DL 20 MG/DL 18 MG/DL Creatinine 1.36 MG/DL 1.51 MG/DL 1.34 MG/DL Estimat Glomerular Filtration 60 ML/MIN 53 ML/MIN 61 ML/MIN Rate Random Glucose 120 MG/DL 117 MG/DL 115 MG/DL Calcium Level 7.5 MG/DL 7.7 MG/DL 8.0 MG/DL Imaging Chest X-Ray 02/28/17 0600 Signed Impressions: Service Date/Time: Tuesday, February 28, 2017 02:22 - CONCLUSION: 1. The small right-sided chest tube is no longer in the right pleural space. The tip is in the subcutaneous soft tissues along the right chest wall. Recommend complete removal. 2. No evidence of pneumothorax. 3. Bibasilar pulmonary infiltrates with effusions. Stevie Fleming MD Chest X-Ray 02/23/17 06 Signed Impressions: Service Date/Time: Thursday, February 23, 2017 04:01 - CONCLUSION: Unchanged bibasilar infiltrates. Kaiser Valiente Jr., MD Chest X-Ray 02/23/17 0000 Signed Impressions: Service Date/Time: Thursday, February 23, 2017 11:49 - CONCLUSION: Bibasilar opacities are present may be due to a combination of consolidation and or pleural effusion. Cheyanne Reveles MD Chest X-Ray 02/22/17 06 Signed Impressions: Service Date/Time: February 03:16 - CONCLUSION: Continue consolidation both lung bases right worse the left. Upper lungs are clear. ET tube in good position. Sanjay Watts MD Neck Magnetic Resonance Angiography 02/19/17 0000 Signed Impressions: Service Date/Time: Sunday, February 19, 2017 09:18 - CONCLUSION: 1. 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 Left vertebral emanates directly from the arch. 2. Otherwise, cervical vessels are all patent with no significant stenosis. Patient is slightly right vertebral dominant distally. Robbie Huggins MD Head Magnetic Resonance Angiography 02/19/17 0000 Signed Impressions: Service Date/Time: Sunday, February 19, 2017 09:18 - CONCLUSION: 1. 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 Intracranial vessels are otherwise patent. 2. No aneurysmal disease. 3. Anatomic variant of the [place] as above. Patient is right vertebral dominant. Robbie Huggins MD Chest X-Ray 02/19/17 0000 Signed Impressions: Service Date/Time: Sunday, February 19, 2017 11:17 - CONCLUSION: No appreciable change in bilateral pleural effusions bibasilar consolidation and/or compressive collapse and probable mild case of pulmonary edema. Cheyanne Reveles MD Physical Exam GENERAL: On the vent, NAD SKIN: Warm and dry, no generalized rash. HEENT: [place] conjunctivae. No scleral icterus. No injection or drainage. Moist mucosa NECK: Trach in place, site ok, no blood. Supple CARDIOVASCULAR: Regular S1S2 RESPIRATORY: Scattered rhonchi GASTROINTESTINAL: Abdomen distended, bowel sounds are present, hypoactive. PEG site ok. Some grimacing with palpation MUSCULOSKELETAL: Extremities without clubbing, cyanosis, or pedal edema. Hands edematous : Has significant increase in scrotal edema; merc[place] with small amount of sediment NEUROLOGICAL: Sedated PSYCH: Unable to assess LINE: PIV with no evidence of infection Assessment & Plan Remarks IMPRESSION Respiratory failure,S/P trach - S/P RX Aspiration, S/P Rx MV and TV vegetation on recent echo, all BC have been negative - ?GPC, ?GNR - initial echo negative, and this is his second echo that showed the vegetation Has R effusion, has CT in place Pneumonia present on admission: likely aspiration in setting of dementia. S/P Rx C diff positive, clinically resolved Ongoing aspiration. Dementia Acute metabolic encephalopathy Fevers: Concomitant antibiotics for Pneumonia ppting Cdiff, ongoing aspiration - temps better. Renal insufficiency, better Vomiting, better RECOMMENDATION Continue IV Vanco - Pharm doing dosing - aim for trough 15-20 Continue Cefepime 4 week of Abx would be till March 20 - end dates ordered in [facility] Monitor temps Monitor progress Weaning per CCM D/W RN Dr Ortiz covering if needed this weekend Tricia Garcia MD Mar 02, 2017 12:57
--- NOTE | 2017-03-02 15:47 | MG ---
cc: YUMIKO JO M.D. Lab No: [id number] Date: 03/01/2017 Age: Sex: M TECHNIQUE 17-channel EEG. DESCRIPTION The background rhythm reveals generalized slowing in the delta frequency at 3-4 Hz with an amplitude of about 20-30 microvolts. There is occasional muscle artifact present. There are no lateralizing features seen and no epileptiform features identified. Hyperventilation was not performed. Photic stimulation did not elicit a driving response. INTERPRETATION This is an abnormal study consistent with a severe encephalopathy. MD SULEIMAN Marcos/ROSA M /3:27 PM /3:36 PM
[2017-03-02] MEDS ORDERED: ALBUMIN HUMAN 25% 25 GM/100 ML BAGP IV ONE (19:30)
[2017-03-02] MEDS ORDERED: BUMETANIDE INJ 1 MG/4 ML VIAL IV PUSH ONE (19:30)
[2017-03-02] MEDS ORDERED: POTASSIUM CHLORIDE 20 MEQ PWD PACKET PO ONE (19:30)
--- NOTE | 2017-03-02 20:49 | HHI.CCPN ---
Subjective Remarks/Hospital Course This is a 86yM who presented from home with altered mental status and end-stage dementia. His hospital course has been complicated by C. Diff and pneumonia for which he is on appropriate therapy. He has been noted to have [id number] aspiration during this hospital stay and has been NPO. Today, a rapid response was called for acute respiratory distress and hypoxia. I was called by Dr. Velez at the rapid response. He believe this is an aspiration event given the patient's clinical history. I immediately went and evaluated the patient. He is labored and in distress. his spo2 is 93% on non-rebreather. He is also in what appears to be new-onset atrial fibrillation with RVR and a HR 160s. Brief review of the pertinent laboratory data demonstrate worsening acute kidney injury, worsening anion-gap metabolic acidosis. Critical care medicine is consulted to evaluate and manage his severe respiratory distress and afib RVR. Unfortunately, the patient is obtunded and cannot provide any additional history. 02/13: no clinical improvements. remains in multiorgan system failure. diltiazem drip weaned to off, but remains on phenylephrine. talked with nephrology who feel clinically, despite some element of JVD, that patient is clinically intravascularly hypovolemic and they recommend gentle ivf hydration, which I am ok with as a trial. mental status poor. kidney injury persists. palliative involved. apparently daughter is not health care surrogate legally, but has been making decisions in the outpatient setting. multiple disagreements within the family. appreciate palliative involvement. 02/14: Renal function continues to worsen and today 57/4.1. D/w Nephrology. If family wants everything done, will need to proceed with HD. Tmax 101.1. ID following 02/15: Remains critically ill, did not tolerate brief CPAP trial. CXR shows mod to large R pl effusion. MAXIMUM TEMPERATURE 100.5. Creatinine slightly improved with urine output more than 1.4 L 02/16: Patient remains intubated, lightly sedated.. Did not tolerate C-peptide yesterday due to tachypnea. CT of the chest shows moderately large right effusion plan for thoracentesis 02/17: Tmax 100.7. No bowel movement since 02/12. On sedation vacation withdrawals but does not follow commands. Tolerating tube feeds at goal. 02/18: Afebrile. One bowel movement overnight. Tolerating tube feeding. Placement of 10 Lao pigtail catheter with 600 cc likely transudative effusion. Tachycardic this AM. 02/19: Currently down for CT abdomen/pelvis with distended abdomen. Also MRA brain/neck with acute/subacute bifrontal CVA. Neurology consult pending. Will likely need tracheostomy. 02/20: Noted emesis last night [address] abdomen/pelvis unremarkable. Moderate gastric output. Started on Reglan. Positive BM. 02/21: Afebrile. Tolerating trickle feeds. One bowel movement. Noted echocardiogram report yesterday. Discussed with Dr. Garcia - blood cultures 2, vancomycin. Reassess in a.m.. Attempting to obtain consent for tracheostomy with . 02/22: Neuro exam unchanged. Mental status will not permit extubation. UO adequate, creat improving. Tracheostomy tomorrow 02/23: Creat continues to improve, no change in mentation. Trach with Parminder today, GI consulted for PEG placement. 02/24: Afebrile. Status post tracheostomy by Dr. Zurita yesterday. Unable to replace gastric tube secondary to bleeding. Plan for PEG on Sunday. 02/25: Currently afebrile. Tracheostomy without bleeding. Hypertensive requiring when necessary's. Plan for PEG Monday 02/26: Afebrile. Check yesterday was unpacked last night. Repacked today. On sedation. Plan for PEG today. 02/27: Afebrile. Chest without bleeding. Continues to be on sedation due to agitation. PEG tube yesterday without competition. Plan remove chest tube today. 02/28: Resting currently in bed. No change in neurological status. Tracheostomy without bleeding. No acute issues. 03/01: Afebrile. More tremulous this a.m. upon removal of fentanyl drip. Currently on PSV trial. Positive BM 2. Tolerating tube feeds at 35 cc an hour. Neurological status unchanged. Subjective: 03/02: Tmax 100.7. Currently 98.9. One bowel movement yesterday. Tolerating tube feeds at 40 cc an hour. Becomes agitated with removal of fentanyl drip. Objective Vital Signs Date Time Temp Pulse Resp B/P Pulse Ox O2 Delivery O2 Flow Rate FiO2 03/02/17 18:00 98 03/02/17 16:00 99.0 19 163/87 100 03/02/17 16:00 30 Intake and Output 03/01/17 03/01/17 03/02/17 08:00 16:00 00:00 Intake Total 857 ml 1280 ml 648 ml Output Total 275.0 ml 1350 ml 1000 ml Balance 582.0 ml -70 ml -352 ml Result Diagram: 03/02/17 0345 03/02/17 0345 Imaging Last Impressions Chest X-Ray 03/01/17 0000 Signed Impressions: Service Date/Time: February 18:33 - CONCLUSION: Placement of a PICC line otherwise not significantly changed. Cheyanne Reveles MD Neck Magnetic Resonance Angiography 02/19/17 0000 Signed Impressions: Service Date/Time: Sunday, February 19, 2017 09:18 - CONCLUSION: 1. 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 Left vertebral emanates directly from the arch. 2. Otherwise, cervical vessels are all patent with no significant stenosis. Patient is slightly right vertebral dominant distally. Robbie Huggins MD Head Magnetic Resonance Angiography 02/19/17 0000 Signed Impressions: Service Date/Time: Sunday, February 19, 2017 09:18 - CONCLUSION: 1. 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 Intracranial vessels are otherwise patent. 2. No aneurysmal disease. 3. Anatomic variant of the [place] of [place] as above. Patient is right vertebral dominant. Robbie Huggins MD Chest CT 02/16/17 0000 Signed Impressions: Service Date/Time: Thursday, February 16, 2017 13:26 - CONCLUSION: 1. Moderate to large right and small left pleural effusion with associated compressive atelectasis. There additionally is airspace consolidation in the right lower lobe. 2. Small pericardial effusion. 3. There are 2 nodules in the right upper lobe measuring 5 mm and 10 mm. Suggest attention to these at followup imaging. Tra Ma MD Brain MRI 02/16/17 0000 Signed Impressions: Service Date/Time: Thursday, February 16, 2017 13:44 - CONCLUSION: Atrophy and extensive white matter disease as well as micro-bleeds the route the cerebral hemispheres and cerebellum. Punctate foci of acute infarction are suspected within the bilateral frontal white matter as described above. Scott Garcia MD Abdomen/Pelvis CT 02/16/17 0000 Signed Impressions: Service Date/Time: Thursday, February 16, 2017 13:26 - CONCLUSION: 1. Diffuse body wall edema, bilateral effusions, pericardial effusion and lower lobe atelectasis and consolidation. 2. Atherosclerosis. Scott Garcia MD Abdomen X-Ray 02/15/17 0000 Signed Impressions: Service Date/Time: February 11:42 - CONCLUSION: Nonspecific abdomen appearance. Tra Garibay MD Head CT 02/07/171946 Signed Impressions: Service Date/Time: Tuesday, February 07, 2017 20:03 - CONCLUSION: No acute intracranial injury Tra Garibay MD Objective Remarks GENERAL: 86-year-old [place] male, critically ill currently on ventilator via tracheostomy SKIN: Warm and dry. No rash HEAD: Atraumatic. Normocephalic. EYES: Pupils equal and round about 3-4 mm bilaterally and reactive. No scleral icterus. No injection or drainage. ENT: No nasal bleeding or discharge. Mucous membranes pink and moist. Oropharynx without erythema. Tracheostomy site is clean dry and intact with no drainage NECK: Trachea midline. Minimal JVD. CARDIOVASCULAR: RRR. S1, S2. No S4. Faint systolic murmur 2 out of 6 RESPIRATORY: Improved breath sounds/aeration throughout the right lung field since placement of pigtail catheter. Few crackles in bases bilaterally. No wheeze GASTROINTESTINAL: Abdomen slightly protuberant. Nontender. Hypoactive bowel sounds are appreciated. PEG tube site is clean dry and intact : Scrotal edema positive MUSCULOSKELETAL: Extremities with 1+ upper and lower extremity pitting edema. No obvious deformities. NEUROLOGICAL: Arousable on sedation vacation but not following commands. Positive gag. Positive corneal reflex. Moves all 4 extremity spontaneously and withdrawal Procedures None A/P Assessment and Plan Neuro/Psych: Acute metabolic encephalopathy End-stage dementia Right [employer] high-grade stenosis Currently Fentanyl drip at 150 is an hour for analgesia while intubated Off propofol drip Goal of RASS -2. Daily sedation vacation CT head 02/07 negative for acute disease MRI brain 02/16 revealed increased fluid in the bilateral centrum semi-ovale and PV WM, remote basal ganglia infarcts bilaterally and PV WM. Punctuate micro- bleeds throughout. MRA brain 02/19 revealed left P2 segment [employer] high-grade stenosis MRI neck - 02/19 - Anatomical Variant Cir., [place]. Left vertebral takes off from aortic arch. Neurology consult Dr. Avalos appreciated. Noted echo 02/12 no vegetations. 02/19 revealed 2 x 4 mm mitral valve leaflet and tricuspid valve lateral leaflet likely vegetation. - See infectious disease Not a anticoagulation candidate per neurology due to micro-hemorrhages. Currently on aspirin 81 mg daily EEG 02/16 reveals moderate to severe encephalopathy. No epileptiform activity. Continue Seroquel 50 milligrams 3 times a day and oxycodone 10 milligrams every 4 hours and wean off IV sedatives Respiratory: Acute hypoxic respiratory failure Aspiration pneumonitis [id number] aspiration Mod to large R effusion/small left pleural effusion Right upper lobe pulmonary nodules 5 and 10 mm. Recommend follow up CT in 3-6 months [facility] 16/ -- vent bundle Bronchodilator therapy every 6 hours with albuterol every 2 hours for breakthrough -- HOB at 30 degrees -- wean fiO2 for goal spo2 > 90% CT chest 02/16 revealed moderate to large right pleural effusion and atelectasis/ small left pleural effusion. Status post placement of pigtail catheter right effusion 02/17. Removed 02/28 Tracheostomy 02/[address] Zurita, PSV trial today 19/03 at 40% tolerating 4hour Cardiovascular: Atrial Fibrillation with Rapid Ventricular Response- resolved. Sinus tachycardia Distributive shock-resolved Acute systolic heart failure Small pericardial effusion Echocardiogram 02/12 revealed EF 30-35%. Moderate TR. MARIA 53 mmHg. revealed EF 35%. Hypokinesis global. Small Mobile densities tricuspid and mitral valve ? vegetation question right MARIA 52 mmHg. -- Off Cardizem drip for HR control Home medications metoprolol 50 mg daily, losartan 100 mg daily and hydralazine 50 mg twice a day currently on hold. --Continue low-dose Lopressor 25 mg twice a day Hydralazine 25 3 times a day added for hypertension Renal: Acute Kidney Injury secondary to ATN secondary to hypoperfusion Nephrology has followed renal function improving cr to 1.34 On free water 100 every 8 Continue Zimmerman creat stable 1.3 today FEN/GI: Acute protein calorie malnutrition- severe C.Difficile Colitis Diarrhea Acute on chronic Aspiration Constipation TF with Jevity 1.5 goal 60 cc an hour resumed 02/27. Currently at 40 cc an hour Colace twice a day/Senokot twice a day MiraLAX daily. Positive BM yesterday after Relistor and lactulose CT abdomen/pelvis revealed left kidney protrusion, bilateral pleural effusions and small pericardial effusion. Significant edema Repeat CT abdomen/pelvis with distended abdomen. Revealed right L1/left L3 transverse process fracture. Anasarca. PEG tube by Dr. Cox Heme/ID: C. 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 Garcia following ABX per ID Discontinued Cefepime 02/21. Discontinue azithromycin 02/16, Continue Flagyl, for aspiration and C diff. Initiated vancomycin and cefepime after blood cultures 2 drawn 02/21 for possible endocarditis tricuspid valve/mitral valve. Negative to date Pertinent cultures 02/07 - blood cultures 2 - no growth 02/08 - stool -- C. difficile positive 02/09 - blood cultures 2 - no growth 02/12 - urine - no growth 02/13 - sputum - no growth 02/15 - blood cultures 2 - no growth 02/18 - urine - no growth 02/21 - blood no growth to date Endocrine: Hyperglycemia of critical illness -- SSI, q6h, med scale Prophylaxis: SCDs, SQH held with micro-hemorrhages. Resume when clinically indicated, Protonix for GI prophylaxis Critical Care: Level 2 Geraldine Eddie [phone] is health care proxy. Daughter in charge of finances. Wish to have aggressive care. Did not want to talk about palliative care. Gerry Mike MD Mar 02, 2017 20:49
[2017-03-02] MEDS: METOPROLOL TARTRATE 25 MG TAB PO SCH (22:30)
[2017-03-03] VITALS (19 sets, daily range): BP systolic 132–172; BP diastolic 70–90; PULSE 85–115; RESP 14–23; TEMP 97.3–99.5; O2SAT 88–100
[2017-03-03] MEDS: FREE WATER G-TUBE SCH ×3 (02:00→17:44)
[2017-03-03 03:28] LABS: AUTOMATED NEUTROPHIL # 12.2 TH/MM3 (1.8-7.7); BASOPHIL # 0.1 TH/MM3 (0-0.2); BASOPHIL % 0.6 % (0.0-2.0); EOSINOPHIL # 0.3 TH/MM3 (0-0.4); HEMATOCRIT 24.5 % (39.0-51.0); HEMO FLAGS DIFF FINAL; LYMPH % 8.5 % (9.0-44.0); LYMPHOCYTE # 1.3 TH/MM3 (1.0-4.8); MEAN CELL VOLUME 89.2 FL (80.0-100.0); MEAN CORPUSCULAR HEMOGLOBIN 29.4 PG (27.0-34.0); MONO % 8.9 % (0.0-8.0); PLATELET COUNT 191 TH/MM3 (150-450); RED BLOOD COUNT 2.75 MIL/MM3 (4.50-5.90); WHITE BLOOD COUNT 15.3 TH/MM3 (4.0-11.0)
[2017-03-03] MEDS: RESP: ALBUTEROL 2.5 MG/IPRATROPIUM 0.5 MG NEB (SCH) NEB ×4 (03:42→21:07)
[2017-03-03 03:51] LABS: ANION GAP 6 MEQ/L (5-15); AST (GOT) 40 U/L (15-37); BICARBONATE 24.2 MEQ/L (21.0-32.0); BLOOD UREA NITROGEN 18 MG/DL (7-18); CHLORIDE 111 MEQ/L (98-107); GLOMERULAR FILTRATION RATE 54 ML/MIN (>89); MAGNESIUM 1.8 MG/DL (1.5-2.5); POTASSIUM 4.1 MEQ/L (3.5-5.1); SODIUM (NA) 141 MEQ/L (136-145)
[2017-03-03 03:54] LABS: ALKALINE PHOSPHATASE 83 U/L (45-117); ALT (GPT) 21 U/L (12-78); TOTAL BILIRUBIN ADULT 0.5 MG/DL (0.2-1.0)
[2017-03-03] MEDS: oxyCODONE HCL ORAL CONC 20 MG/ML SYRINGE PO SCH ×6 (03:56→23:50)
[2017-03-03] MEDS: CEFEPIME INJ 2,000 MG in SODIUM CHLORIDE 0.9% INJ 100 ML IV SCH ×2 (03:56→15:34)
[2017-03-03] MEDS: INSULIN NovoLIN REGULAR SUPPLEMENTAL SCALE SQ SCH ×2 (06:00→12:00)
[2017-03-03] MEDS: ARTIFICIAL TEARS OPTH SOLN 15 ML BTL EACH EYE SCH ×3 (06:06→21:56)
[2017-03-03] MEDS: METOCLOPRAMIDE HCL 10 MG/2 ML VIAL IV PUSH SCH ×3 (06:06→21:57)
[2017-03-03] MEDS: QUEtiapine FUMARATE 25 MG TAB PO SCH ×3 (06:07→21:57)
[2017-03-03] MEDS: hydrALAZINE HCL 25 MG TAB PO SCH ×3 (06:07→21:57)
[2017-03-03] MEDS: SODIUM CHLORIDE 0.9% FLUSH 10 ML FLUSH IV FLUSH PRN (06:08)
--- NOTE | 2017-03-03 06:11 | RADRPT ---
EXAM DATE/TIME: 03/03/2017 05:06 [place] COMPARISON: CHEST SINGLE AP, March 01, 2017, 18:33. INDICATIONS : Shortness of breath, possible pulmonary disease. MEDICAL HISTORY : Sepsis. SURGICAL HISTORY : None. ENCOUNTER: Subsequent ACUITY: 2 weeks PAIN SCORE: Non-responsive. LOCATION: Bilateral chest FINDINGS: Diffuse pulmonary opacities and moderate bilateral pleural effusions are again noted, both sides not significantly changed. I don't see a pneumothorax. Heart size stable, upper limits of normal. Trach collar again noted appears normally positioned. There is a right arm PICC with tip in the super ior vena cava unchanged. CONCLUSION: No significant change. Tra Carroll MD on March 03, 2017 at 6:08 Board Certified Radiologist. This report was verified electronically.
[2017-03-03] MEDS: CHLORHEXIDINE 0.12% (ORAL KIT) 15 ML CUP MT SCH ×2 (08:00→20:00)
--- NOTE | 2017-03-03 08:39 | HHI.CCPN ---
Subjective Remarks/Hospital Course This is a 86yM who presented from home with altered mental status and end-stage dementia. His hospital course has been complicated by C. Diff and pneumonia for which he is on appropriate therapy. He has been noted to have [id number] aspiration during this hospital stay and has been NPO. Today, a rapid response was called for acute respiratory distress and hypoxia. I was called by Dr. Velez at the rapid response. He believe this is an aspiration event given the patient's clinical history. I immediately went and evaluated the patient. He is labored and in distress. his spo2 is 93% on non-rebreather. He is also in what appears to be new-onset atrial fibrillation with RVR and a HR 160s. Brief review of the pertinent laboratory data demonstrate worsening acute kidney injury, worsening anion-gap metabolic acidosis. Critical care medicine is consulted to evaluate and manage his severe respiratory distress and afib RVR. Unfortunately, the patient is obtunded and cannot provide any additional history. 02/13: no clinical improvements. remains in multiorgan system failure. diltiazem drip weaned to off, but remains on phenylephrine. talked with nephrology who feel clinically, despite some element of JVD, that patient is clinically intravascularly hypovolemic and they recommend gentle ivf hydration, which I am ok with as a trial. mental status poor. kidney injury persists. palliative involved. apparently daughter is not health care surrogate legally, but has been making decisions in the outpatient setting. multiple disagreements within the family. appreciate palliative involvement. 02/14: Renal function continues to worsen and today 57/4.1. D/w Nephrology. If family wants everything done, will need to proceed with HD. Tmax 101.1. ID following 02/15: Remains critically ill, did not tolerate brief CPAP trial. CXR shows mod to large R pl effusion. MAXIMUM TEMPERATURE 100.5. Creatinine slightly improved with urine output more than 1.4 L 02/16: Patient remains intubated, lightly sedated.. Did not tolerate C-peptide yesterday due to tachypnea. CT of the chest shows moderately large right effusion plan for thoracentesis 02/17: Tmax 100.7. No bowel movement since 02/12. On sedation vacation withdrawals but does not follow commands. Tolerating tube feeds at goal. 02/18: Afebrile. One bowel movement overnight. Tolerating tube feeding. Placement of 10 [place] pigtail catheter with 600 cc likely transudative effusion. Tachycardic this AM. 02/19: Currently down for CT abdomen/pelvis with distended abdomen. Also MRA brain/neck with acute/subacute bifrontal CVA. Neurology consult pending. Will likely need tracheostomy. 02/20: Noted emesis last night [address] abdomen/pelvis unremarkable. Moderate gastric output. Started on Reglan. Positive BM. 02/21: Afebrile. Tolerating trickle feeds. One bowel movement. Noted echocardiogram report yesterday. Discussed with Dr. Garcia - blood cultures 2, vancomycin. Reassess in a.m.. Attempting to obtain consent for tracheostomy with . 02/22: Neuro exam unchanged. Mental status will not permit extubation. UO adequate, creat improving. Tracheostomy tomorrow 02/23: Creat continues to improve, no change in mentation. Trach with Parminder today, GI consulted for PEG placement. 02/24: Afebrile. Status post tracheostomy by Dr. Zurita yesterday. Unable to replace gastric tube secondary to bleeding. Plan for PEG on Sunday. 02/25: Currently afebrile. Tracheostomy without bleeding. Hypertensive requiring when necessary's. Plan for PEG Monday 02/26: Afebrile. Check yesterday was unpacked last night. Repacked today. On sedation. Plan for PEG today. 02/27: Afebrile. Chest without bleeding. Continues to be on sedation due to agitation. PEG tube yesterday without competition. Plan remove chest tube today. 02/28: Resting currently in bed. No change in neurological status. Tracheostomy without bleeding. No acute issues. 03/01: Afebrile. More tremulous this a.m. upon removal of fentanyl drip. Currently on PSV trial. Positive BM 2. Tolerating tube feeds at 35 cc an hour. Neurological status unchanged. 03/02: Tmax 100.7. Currently 98.9. One bowel movement yesterday. Tolerating tube feeds at 40 cc an hour. Becomes agitated with removal of fentanyl drip. Subjective: 03/03 WBC 15.3. Afebrile. On vanc and cefepime per ID. Tolerating CPAP 08/09 with RSBI 40s Objective Vital Signs Date Time Temp Pulse Resp B/P Pulse Ox O2 Delivery O2 Flow Rate FiO2 03/03/17 07:38 99 30 03/03/17 06:00 86 03/03/17 04:00 98.9 23 132/75 Intake and Output 03/02/17 03/02/17 03/03/17 08:00 16:00 00:00 Intake Total 621 ml 1278 ml 651 ml Output Total 325.0 ml 425 ml 1000 ml Balance 296.0 ml 853 ml -349 ml Result Diagram: 03/03/17 0305 03/03/17 0305 Imaging Last Impressions Chest X-Ray 03/01/17 0000 Signed Impressions: Service Date/Time: February 18:33 - CONCLUSION: Placement of a PICC line otherwise not significantly changed. Cheyanne Reveles MD Neck Magnetic Resonance Angiography 02/19/17 0000 Signed Impressions: Service Date/Time: Sunday, February 19, 2017 09:18 - CONCLUSION: 1. 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 Left vertebral emanates directly from the arch. 2. Otherwise, cervical vessels are all patent with no significant stenosis. Patient is slightly right vertebral dominant distally. Robbie Huggins MD Head Magnetic Resonance Angiography 02/19/17 0000 Signed Impressions: Service Date/Time: Sunday, February 19, 2017 09:18 - CONCLUSION: 1. 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 Intracranial vessels are otherwise patent. 2. No aneurysmal disease. 3. Anatomic variant of the [place] as above. Patient is right vertebral dominant. Robbie Huggins MD Chest CT 02/16/17 0000 Signed Impressions: Service Date/Time: Thursday, February 16, 2017 13:26 - CONCLUSION: 1. Moderate to large right and small left pleural effusion with associated compressive atelectasis. There additionally is airspace consolidation in the right lower lobe. 2. Small pericardial effusion. 3. There are 2 nodules in the right upper lobe measuring 5 mm and 10 mm. Suggest attention to these at followup imaging. Tra Ma MD Brain MRI 02/16/17 0000 Signed Impressions: Service Date/Time: Thursday, February 16, 2017 13:44 - CONCLUSION: Atrophy and extensive white matter disease as well as micro-bleeds the route the cerebral hemispheres and cerebellum. Punctate foci of acute infarction are suspected within the bilateral frontal white matter as described above. Scott Garcia MD Abdomen/Pelvis CT 02/16/17 0000 Signed Impressions: Service Date/Time: Thursday, February 16, 2017 13:26 - CONCLUSION: 1. Diffuse body wall edema, bilateral effusions, pericardial effusion and lower lobe atelectasis and consolidation. 2. Atherosclerosis. Scott Garcia MD Abdomen X-Ray 02/15/17 0000 Signed Impressions: Service Date/Time: February 11:42 - CONCLUSION: Nonspecific abdomen appearance. Tra Garibay MD Head CT 02/07/171946 Signed Impressions: Service Date/Time: Tuesday, February 07, 2017 20:03 - CONCLUSION: No acute intracranial injury Tra Garibay MD Objective Remarks GENERAL: 86-year-old [place] male, critically ill currently on ventilator via tracheostomy SKIN: Warm and dry. No rash HEAD: Atraumatic. Normocephalic. EYES: Pupils equal and round about 3-4 mm bilaterally and reactive. No scleral icterus. No injection or drainage. ENT: No nasal bleeding or discharge. Mucous membranes pink and moist. Oropharynx without erythema. Tracheostomy site is clean dry and intact with no drainage NECK: Trachea midline. Minimal JVD. CARDIOVASCULAR: RRR. S1, S2. No S4. Faint systolic murmur 1-2 out of 6 RESPIRATORY: Few crackles in bases bilaterally. No wheeze GASTROINTESTINAL: Abdomen slightly protuberant . Nontender. Hypoactive bowel sounds are appreciated. PEG tube site is clean dry and intact. Tolerating tube feeds 40/hr. : Large amount of scrotal edema. MUSCULOSKELETAL: Extremities with 1-2+ upper and lower extremity pitting edema. No obvious deformities. NEUROLOGICAL: Withdraws all extremities. 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 Oxycodone has been increased to 10 mg q 4hours schedule. Seroquel 50 q8. Off propofol drip Goal of RASS -2. Daily sedation vacation CT head 02/07 negative for acute disease MRI brain 02/16 revealed increased fluid in the bilateral centrum semi-ovale and PV WM, remote basal ganglia infarcts bilaterally and PV WM. Punctuate micro- bleeds throughout. MRA brain 02/19 revealed left P2 segment [employer] high-grade stenosis MRI neck - 02/19 - Anatomical Variant Cir., [place]. Left vertebral takes off from aortic arch. Neurology consult Dr. Avalos appreciated. Noted echo 02/12 no vegetations. 02/19 revealed 2 x 4 mm mitral valve leaflet and tricuspid valve lateral leaflet likely vegetation. - See infectious disease Not a anticoagulation candidate per neurology due to micro-hemorrhages. Currently on aspirin 81 mg daily EEG 02/16 reveals moderate to severe encephalopathy. No epileptiform activity. Respiratory: Acute hypoxic respiratory failure Aspiration pneumonitis Icuxc-[id number] aspiration Mod to large R effusion/small left pleural effusion Right upper lobe pulmonary nodules 5 and 10 mm. Recommend follow up CT in 3-6 months [facility] 16/550//530. Tolerating CPAP 08/09 with RSBI 40s -- vent bundle Bronchodilator therapy every 6 hours with albuterol every 2 hours for breakthrough -- HOB at 30 degrees -- wean fiO2 for goal spo2 > 90% CT chest 02/16 revealed moderate to large right pleural effusion and atelectasis/ small left pleural effusion. Status post placement of pigtail catheter right effusion 02/17. Removed 02/28 Tracheostomy 02/[address] Zurita, Cardiovascular: Atrial Fibrillation with Rapid Ventricular Response- resolved. Sinus tachycardia Distributive shock-resolved Acute systolic heart failure Small pericardial effusion Echocardiogram 02/12 revealed EF 30-35%. Moderate TR. MARIA 53 mmHg. revealed EF 35%. Hypokinesis global. Small Mobile densities tricuspid and mitral valve ? vegetation question right MARIA 52 mmHg. -- Off Cardizem drip for HR control Home medications: metoprolol 50 mg daily, losartan 100 mg daily and hydralazine 50 mg twice a day currently on hold. Hypertensive, tachycardic. Increase metoprolol 50 bid. Hydralazine 25 3 times a day Renal: Hypophosphatemia Acute Kidney Injury secondary to ATN secondary to hypoperfusion Zimmerman to monitor accurate UOP on patient who is critically ill on diuretics. Creatinine stabilized around 1.3-1.5. Nephrology signed off. Volume overloaded. Give Bumex 1 mg IV every 12 hours 2 doses On free water 110 ml q8 Replace phos per ICU electrolyte replacement protocol. FEN/GI: Acute protein calorie malnutrition- severe C.Difficile Colitis Diarrhea Acute on chronic Aspiration Constipation TF with Jevity 1.5 goal 60 cc an hour resumed 02/27. Currently at 40 cc an hour Colace twice a day/Senokot twice a day MiraLAX daily. Positive BM yesterday after Relistor and lactulose CT abdomen/pelvis revealed left kidney protrusion, bilateral pleural effusions and small pericardial effusion. Significant edema Repeat CT abdomen/pelvis with distended abdomen. Revealed right L1/left L3 transverse process fracture. Anasarca. PEG tube by Dr. Cox Heme/ID: C. 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 Garcia following ABX per ID Completed 14 day course of flagyl 02/23 for aspiration and C diff. 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 Anticipated complete date March 20. Pertinent cultures 02/07 - blood cultures 2 - no growth 02/08 - stool -- C. difficile positive 02/09 - blood cultures 2 - no growth 02/12 - urine - no growth 02/13 - sputum - no growth 02/15 - blood cultures 2 - no growth 02/18 - urine - no growth 02/21 - blood no growth to date Endocrine: Hyperglycemia of critical illness (resolved) HAs not required sliding scale in many days. Tolerating tube feeds. D/c insulin . Prophylaxis: SCDs, SQH held with micro-hemorrhages and concern for septic emboli and risk of hemorrhage. Will discuss with neurology. Protonix for GI prophylaxis Geraldine Morgan [phone] is health care proxy. Daughter in charge of finances. Wish to have aggressive care. I discussed with her today, 03/03, and she states she is hopeful for a miracle. Level 2 Soco Spangler MD Mar 03, 2017 08:39 palliative care. Soco Spangler MD Mar 03, 2017 08:39
[2017-03-03] MEDS: SENNOSIDES SYRUP 8.8 MG/5 ML CUP PO SCH ×2 (09:00→20:22)
[2017-03-03] MEDS: POLYETHYLENE GLYCOL 17 GM PKG PO SCH (09:00)
[2017-03-03] MEDS: METOPROLOL TARTRATE 25 MG TAB PO SCH (09:54)
[2017-03-03] MEDS: DOCUSATE SODIUM 100 MG/10 ML UDC PO SCH ×2 (09:54→20:22)
[2017-03-03] MEDS: LACTOBACILLUS ACIDOPHILUS TAB PO SCH ×3 (09:55→17:45)
[2017-03-03] MEDS: ASPIRIN 81 MG CHEW TAB CHEW SCH (09:55)
[2017-03-03] MEDS: SODIUM CHLORIDE 0.9% FLUSH 10 ML FLUSH IV FLUSH SCH (09:56)
[2017-03-03] MEDS: COLLAGENASE OINT 30 GM TUBE TOPICAL SCH (09:56)
[2017-03-03] MEDS: BACITRACIN TOP OINT 15 GM TUBE TOPICAL SCH ×2 (09:56→20:24)
[2017-03-03] MEDS ORDERED: PHARMACY ORDERED LAB ONE (11:45)
[2017-03-03] MEDS: VANCOMYCIN INJ 1,500 MG in SODIUM CHLORID 0.9% 500 ML INJ 500 ML IV SCH (12:48)
[2017-03-03] MEDS ORDERED: POTASSIUM PHOSPHATE MONOBASIC 500 MG TAB PO PRN (14:30)
[2017-03-03] MEDS ORDERED: MAGNESIUM OXIDE 400 MG TAB PO PRN (14:30)
[2017-03-03] MEDS ORDERED: SODIUM PHOSPHATE INJ 30 MMOL in SODIUM CHLOR 0.9% 250 ML INJ 240 ML IV PRN (14:30)
[2017-03-03] MEDS ORDERED: POTASSIUM CHLOR 40 MEQ PREMIX 100 ML IV PRN ×2 (14:30)
[2017-03-03] MEDS ORDERED: POTASSIUM PHOSPHATE MONOBASIC 500 MG TAB PO/TUBE PRN (14:30)
[2017-03-03] MEDS ORDERED: POTASSIUM CHLOR 20 MEQ PREMIX 100 ML IV PRN ×2 (14:30)
[2017-03-03] MEDS ORDERED: MAGNESIUM SULFATE INJ 4 GM in SODIUM CHLORIDE 0.9% INJ 92 ML IV PRN (14:30)
[2017-03-03] MEDS ORDERED: POTASSIUM CHLORIDE 25 MEQ EFFERVESCENT TAB PO PRN (14:30)
[2017-03-03] MEDS ORDERED: MAGNESIUM SULFATE INJ 2 GM in SODIUM CHLORIDE 0.9% INJ 96 ML IV PRN (14:30)
[2017-03-03] MEDS: fentaNYL DRIP 250 ML IV SCH (15:33)
[2017-03-03] MEDS: BUMETANIDE INJ 1 MG/4 ML VIAL IV PUSH SCH (15:34)
--- NOTE | 2017-03-03 17:04 | HHI.PR ---
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 Would not recommend anticoagulation given the microscopic hemorrhages on MRI and the possibility of septic emboli and mycotic aneurysms which would pose a hemorrhagic risk. Would hold dvt prophylaxis with anticoagulants until antibiotic course for sbe is completed and would repeat a brain MRI to ensure resolution of the microscopic hemorrhages before starting anticoagulation for dvt prophylaxis. Diagnosis/Plan: Subjective Subjective Comments No acute events reported Active Medications Current Medications Medications (Trade) Dose Ordered Sig/Connor Route Start Time Stop Time Status Last Admin (Zofran Inj) 4 mg Q8H PRN IV PUSH 02/07/17 21:45 (Tylenol) 500 mg Q4H PRN PO 02/08/17 13:15 03/02/17 08:01 (Lactinex) 1 tab TID PO 02/09/17 13:00 03/03/17 12:24 (Peridex 0.12% Liq) 15 ml BID@08,20 MT 02/12/17 20:00 03/03/17 08:00 (D50w (Vial) Inj) 25 ml UNSCH PRN IV PUSH 02/12/17 14:30 02/24/17 18:16 (Aspirin Chew) 81 mg DAILY CHEW 02/13/17 09:00 03/03/17 09:55 Miscellaneous Information Patient in critical care unit? Ass... Q361D .XX 02/12/17 22:00 (fentaNYL DRIP) 250 ml @ 0 mls/hr TITRATE IV 02/13/17 01:45 03/03/17 15:33 (Senna Liq) 8.8 mg BID PO 02/17/17 21:00 03/02/17 20:57 (Glycerin Adult Supp) 2 gm BID PRN RECTAL 02/17/17 10:15 (Tears Naturale Opth Soln) 1 drop Q8HR EACH EYE 02/17/17 14:00 03/03/17 12:25 Metoclopramide HCl 5 mg 5 mg Q8HR IV PUSH 02/19/17 14:00 03/03/17 12:24 (Vancomycin Consult Pharmacy) 0 ml @ 0 mls/hr UNSCH OTHER 02/21/17 13:15 Docusate Sodium 100 mg 100 mg BID PO 02/22/17 09:00 03/03/17 09:54 (Maxipime Inj/NS Inj) 100 ml @ 200 mls/hr Q12H IV 02/23/17 16:00 03/27/17 23:00 03/03/17 15:34 (Trandate Inj) 10 mg Q1H PRN IV PUSH 02/24/17 08:00 03/02/17 08:01 (Apresoline Inj) 10 mg Q1H PRN IV PUSH 02/24/17 08:00 03/02/17 02:23 Nitroglycerin 2 inch 2 inch Q6H PRN TOPICAL 02/24/17 08:00 (Vancomycin Inj/ NS 500 ml Inj) 515 ml @ 250 mls/hr Q24H IV 02/28/17 12:00 03/20/17 23:00 03/03/17 12:48 (Santyl Oint) 1 applic DAILY TOPICAL 03/01/17 09:00 03/03/17 09:56 (Baciguent Oint) 1 applic Q12HR TOPICAL 02/28/17 21:00 03/03/17 09:56 (Miralax) 17 gm DAILY PO 03/01/17 09:00 (NS Flush) See Protocol DAILY IV FLUSH 03/02/17 09:00 03/03/17 09:56 (NS Flush) See Protocol UNSCH PRN IV FLUSH 03/01/17 19:15 03/03/17 06:08 (Heparin Central Flush) See Protocol DAILY IV FLUSH 03/02/17 09:00 (Heparin Central Flush) See Protocol UNSCH PRN IV FLUSH 03/01/17 19:15 (NS Flush) UNSCH PRN IV FLUSH 03/01/17 19:15 03/02/17 08:02 (Roxicodone Intensol Liq) 10 mg Q4HR PO 03/03/17 00:00 03/03/17 15:35 (SEROquel) 50 mg Q8HR PO 03/02/17 22:00 03/03/17 12:25 (Free Water) 110 ml Q8H G-TUBE 03/03/17 02:00 03/03/17 09:57 (Apresoline) 25 mg Q8HR PO 03/02/17 22:00 03/03/17 12:25 (fentaNYL INJ) 50 mcg Q2H PRN IV PUSH 03/02/17 21:00 (Lopressor) 50 mg Q12HR PO 03/03/17 21:00 Bumetanide 1 mg 1 mg Q12H IV PUSH 03/03/17 14:30 03/04/17 02:31 03/03/17 15:34 Potassium Chloride 100 ml @ 50 mls/hr Q2H PRN IV 03/03/17 14:30 (KCl 20 Meq Premix Inj) 100 ml @ 50 mls/hr Q2H PRN IV 03/03/17 14:30 Potassium Bicarb/ Potassium Chloride 50 meq 50 meq UNSCH PRN PO 03/03/17 14:30 Potassium Chloride 100 ml @ 25 mls/hr UNSCH PRN IV 03/03/17 14:30 Potassium Chloride 100 ml @ 50 mls/hr Q2H PRN IV 03/03/17 14:30 (Magnesium Sulfate Inj/NS Inj) 100 ml @ 50 mls/hr UNSCH PRN IV 03/03/17 14:30 Magnesium Oxide 800 mg 800 mg UNSCH PRN PO 03/03/17 14:30 (Magnesium Sulfate Inj/NS Inj) 100 ml @ 50 mls/hr UNSCH PRN IV 03/03/17 14:30 Potassium Phosphate 2000 mg 2,000 mg Q4H PRN PO 03/03/17 14:30 (Sodium Phosphate Inj/NS 250 ml Inj) 250 ml @ 42 mls/hr UNSCH PRN IV 03/03/17 14:30 (K-Phos) 2,000 mg UNSCH PRN PO/TUBE 03/03/17 14:30 Allergies Allergies Coded Allergies No Known Allergies (Verified11/22/06) UNOBTAINABLE (Unverified02/09/17) Exam I&O / VS 03/02/17 03/02/17 03/03/17 15:00 23:00 07:00 Intake Total 1278 ml 651 ml 594 ml Output Total 425 ml 1000 ml 1325 ml Balance 853 ml -349 ml -731 ml IV Total 679 ml 415 ml 248 ml Tube Feeding 299 ml 236 ml 236 ml Other 300 ml 110 ml Output Urine Total 425 ml 1000 ml 1325 ml Tube Feeding Residual Discard 0 ml 0 ml # Bowel Movements 0 0 2 Vital Signs Date Time Temp Pulse Resp B/P Pulse Ox O2 Delivery O2 Flow Rate FiO2 03/03/17 15:12 88 30 03/03/17 12:00 91 03/03/17 12:00 98.2 91 18 172/90 100 03/03/17 12:00 30 03/03/17 11:52 100 30 03/03/17 10:55 14 03/03/17 10:00 104 03/03/17 08:00 97 03/03/17 08:00 97.3 97 19 156/79 100 03/03/17 08:00 30 03/03/17 07:38 99 30 03/03/17 07:38 30 03/03/17 06:00 86 03/03/17 04:28 100 30 03/03/17 04:00 30 03/03/17 04:00 115 03/03/17 04:00 98.9 115 23 132/75 100 03/03/17 02:00 85 03/03/17 01:24 100 30 03/03/17 00:00 97 03/03/17 00:00 30 03/03/17 00:00 99.5 97 20 161/80 91 03/02/17 22:20 100 30 03/02/17 22:00 106 03/02/17 20:15 100 30 03/02/17 20:00 99.0 90 17 157/78 100 03/02/17 20:00 30 03/02/17 20:00 90 03/02/17 18:00 98 Exam Comments very lethargic, attempt to follow simple commands Pupils equal Motor--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 evp [place] weakly bilaterally, no other spontaneous movement Objective Micro and Labs Laboratory Tests Test 03/03/17 03/03/17 03:05 12:00 White Blood Count 15.3 Red Blood Count 2.75 Hemoglobin 8.1 Hematocrit 24.5 Mean Corpuscular Volume 89.2 Mean Corpuscular Hemoglobin 29.4 Mean Corpuscular Hemoglobin 33.0 Concent Red Cell Distribution Width 15.0 Platelet Count 191 Mean Platelet Volume 8.8 Neutrophils (%) (Auto) 80.0 Lymphocytes (%) (Auto) 8.5 Monocytes (%) (Auto) 8.9 Eosinophils (%) (Auto) 2.0 Basophils (%) (Auto) 0.6 Neutrophils # (Auto) 12.2 Lymphocytes # (Auto) 1.3 Monocytes # (Auto) 1.4 Eosinophils # (Auto) 0.3 Basophils # (Auto) 0.1 CBC Comment DIFF FINAL Differential Comment Sodium Level 141 Potassium Level 4.1 Chloride Level 111 Carbon Dioxide Level 24.2 Anion Gap 6 Blood Urea Nitrogen 18 Creatinine 1.49 Estimat Glomerular Filtration 54 Rate Random Glucose 135 Lactic Acid Level 1.1 Calcium Level 8.3 Phosphorus Level 1.8 Magnesium Level 1.8 Total Bilirubin 0.5 Aspartate Amino Transf 40 (AST/SGOT) Alanine Aminotransferase 21 (ALT/SGPT) Alkaline Phosphatase 83 Total Protein 6.6 Albumin 2.3 Vancomycin Level Trough 28.7 Darius Avalos PhD Mar 03, 2017 17:04
[2017-03-03] MEDS: METOPROLOL TARTRATE 50 MG TAB PO SCH (20:23)
[2017-03-04] VITALS (16 sets, daily range): BP systolic 121–175; BP diastolic 67–85; PULSE 82–102; RESP 12–17; TEMP 98.2–99.3; O2SAT 100
[2017-03-04] MEDS: BUMETANIDE INJ 1 MG/4 ML VIAL IV PUSH SCH (01:59)
[2017-03-04] MEDS: FREE WATER G-TUBE SCH ×3 (01:59→18:00)
[2017-03-04] MEDS: RESP: ALBUTEROL 2.5 MG/IPRATROPIUM 0.5 MG NEB (SCH) NEB ×4 (03:49→21:45)
[2017-03-04] MEDS: CEFEPIME INJ 2,000 MG in SODIUM CHLORIDE 0.9% INJ 100 ML IV SCH ×2 (03:54→14:56)
[2017-03-04] MEDS: oxyCODONE HCL ORAL CONC 20 MG/ML SYRINGE PO SCH ×4 (03:55→21:32)
[2017-03-04] MEDS: hydrALAZINE HCL 20 MG/ML VIAL IV PUSH PRN (05:46)
[2017-03-04] MEDS: hydrALAZINE HCL 25 MG TAB PO SCH ×3 (05:49→21:30)
[2017-03-04] MEDS: METOCLOPRAMIDE HCL 10 MG/2 ML VIAL IV PUSH SCH ×2 (05:49→14:57)
[2017-03-04] MEDS: ARTIFICIAL TEARS OPTH SOLN 15 ML BTL EACH EYE SCH ×2 (05:49→14:00)
[2017-03-04] MEDS: QUEtiapine FUMARATE 25 MG TAB PO SCH ×3 (05:49→21:31)
[2017-03-04] MEDS: POLYETHYLENE GLYCOL 17 GM PKG PO SCH (09:00)
[2017-03-04] MEDS: CHLORHEXIDINE 0.12% (ORAL KIT) 15 ML CUP MT SCH (09:32)
[2017-03-04] MEDS: DOCUSATE SODIUM 100 MG/10 ML UDC PO SCH (09:33)
[2017-03-04] MEDS: SENNOSIDES SYRUP 8.8 MG/5 ML CUP PO SCH (09:33)
[2017-03-04] MEDS: METOPROLOL TARTRATE 50 MG TAB PO SCH ×2 (09:34→21:31)
[2017-03-04] MEDS: ASPIRIN 81 MG CHEW TAB CHEW SCH (09:34)
[2017-03-04] MEDS: BACITRACIN TOP OINT 15 GM TUBE TOPICAL SCH (09:34)
[2017-03-04] MEDS: LACTOBACILLUS ACIDOPHILUS TAB PO SCH ×3 (09:34→19:09)
[2017-03-04] MEDS: COLLAGENASE OINT 30 GM TUBE TOPICAL SCH (09:35)
[2017-03-04] MEDS: SODIUM CHLORIDE 0.9% FLUSH 10 ML FLUSH IV FLUSH SCH (09:35)
[2017-03-04] MEDS: VANCOMYCIN INJ 1,500 MG in SODIUM CHLORID 0.9% 500 ML INJ 500 ML IV SCH (12:00)
[2017-03-04] MEDS: fentaNYL DRIP 250 ML IV SCH (14:56)
--- NOTE | 2017-03-04 19:37 | HHI.CCPN ---
Subjective Remarks/Hospital Course This is a 86yM who presented from home with altered mental status and end-stage dementia. His hospital course has been complicated by C. Diff and pneumonia for which he is on appropriate therapy. He has been noted to have powey-bf-spakngo aspiration during this hospital stay and has been NPO. Today, a rapid response was called for acute respiratory distress and hypoxia. I was called by Dr. Velez at the rapid response. He believe this is an aspiration event given the patient's clinical history. I immediately went and evaluated the patient. He is labored and in distress. his spo2 is 93% on non-rebreather. He is also in what appears to be new-onset atrial fibrillation with RVR and a HR 160s. Brief review of the pertinent laboratory data demonstrate worsening acute kidney injury, worsening anion-gap metabolic acidosis. Critical care medicine is consulted to evaluate and manage his severe respiratory distress and afib RVR. Unfortunately, the patient is obtunded and cannot provide any additional history. 02/13: no clinical improvements. remains in multiorgan system failure. diltiazem drip weaned to off, but remains on phenylephrine. talked with nephrology who feel clinically, despite some element of JVD, that patient is clinically intravascularly hypovolemic and they recommend gentle ivf hydration, which I am ok with as a trial. mental status poor. kidney injury persists. palliative involved. apparently daughter is not health care surrogate legally, but has been making decisions in the outpatient setting. multiple disagreements within the family. appreciate palliative involvement. 02/14: Renal function continues to worsen and today 57/4.1. D/w Nephrology. If family wants everything done, will need to proceed with HD. Tmax 101.1. ID following 02/15: Remains critically ill, did not tolerate brief CPAP trial. CXR shows mod to large R pl effusion. MAXIMUM TEMPERATURE 100.5. Creatinine slightly improved with urine output more than 1.4 L 02/16: Patient remains intubated, lightly sedated.. Did not tolerate C-peptide yesterday due to tachypnea. CT of the chest shows moderately large right effusion plan for thoracentesis 02/17: Tmax 100.7. No bowel movement since 02/12. On sedation vacation withdrawals but does not follow commands. Tolerating tube feeds at goal. 02/18: Afebrile. One bowel movement overnight. Tolerating tube feeding. Placement of 10 Romanian pigtail catheter with 600 cc likely transudative effusion. Tachycardic this AM. 02/19: Currently down for CT abdomen/pelvis with distended abdomen. Also MRA brain/neck with acute/subacute bifrontal CVA. Neurology consult pending. Will likely need tracheostomy. 02/20: Noted emesis last night [address] abdomen/pelvis unremarkable. Moderate gastric output. Started on Reglan. Positive BM. 02/21: Afebrile. Tolerating trickle feeds. One bowel movement. Noted echocardiogram report yesterday. Discussed with Dr. Garcia - blood cultures 2, vancomycin. Reassess in a.m.. Attempting to obtain consent for tracheostomy with . 02/22: Neuro exam unchanged. Mental status will not permit extubation. UO adequate, creat improving. Tracheostomy tomorrow 02/23: Creat continues to improve, no change in mentation. Trach with Parminder today, GI consulted for PEG placement. 02/24: Afebrile. Status post tracheostomy by Dr. Zurita yesterday. Unable to replace gastric tube secondary to bleeding. Plan for PEG on Sunday. 02/25: Currently afebrile. Tracheostomy without bleeding. Hypertensive requiring when necessary's. Plan for PEG Monday 02/26: Afebrile. Check yesterday was unpacked last night. Repacked today. On sedation. Plan for PEG today. 02/27: Afebrile. Chest without bleeding. Continues to be on sedation due to agitation. PEG tube yesterday without competition. Plan remove chest tube today. 02/28: Resting currently in bed. No change in neurological status. Tracheostomy without bleeding. No acute issues. 03/01: Afebrile. More tremulous this a.m. upon removal of fentanyl drip. Currently on PSV trial. Positive BM 2. Tolerating tube feeds at 35 cc an hour. Neurological status unchanged. 03/02: Tmax 100.7. Currently 98.9. One bowel movement yesterday. Tolerating tube feeds at 40 cc an hour. Becomes agitated with removal of fentanyl drip. 03/03 WBC 15.3. Afebrile. On vanc and cefepime per ID. Tolerating CPAP 08/09 with RSBI 40s Subjective: 03/04 Diuresed net -1.1 L yesterday. Tolerating C Pap 10 over 5 very well and appears can wean further. Objective Vital Signs Date Time Temp Pulse Resp B/P Pulse Ox O2 Delivery O2 Flow Rate FiO2 03/04/17 18:00 91 03/04/17 16:00 30 03/04/17 16:00 98.4 12 121/67 100 Intake and Output 03/03/17 03/03/17 03/04/17 08:00 16:00 00:00 Intake Total 594 ml 1084 ml 597 ml Output Total 1325.0 ml 450 ml 1750 ml Balance -731.0 ml 634 ml -1153 ml Result Diagram: 03/03/17 0305 03/03/17 0305 Imaging Last Impressions Chest X-Ray 03/01/17 0000 Signed Impressions: Service Date/Time: February 18:33 - CONCLUSION: Placement of a PICC line otherwise not significantly changed. Cheyanne Reveles MD Neck Magnetic Resonance Angiography 02/19/17 0000 Signed Impressions: Service Date/Time: Sunday, February 19, 2017 09:18 - CONCLUSION: 1. 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 Left vertebral emanates directly from the arch. 2. Otherwise, cervical vessels are all patent with no significant stenosis. Patient is slightly right vertebral dominant distally. Robbie Huggins MD Head Magnetic Resonance Angiography 02/19/17 0000 Signed Impressions: Service Date/Time: Sunday, February 19, 2017 09:18 - CONCLUSION: 1. 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 Intracranial vessels are otherwise patent. 2. No aneurysmal disease. 3. Anatomic variant of the [place] as above. Patient is right vertebral dominant. Robbie Huggins MD Chest CT 02/16/17 0000 Signed Impressions: Service Date/Time: Thursday, February 16, 2017 13:26 - CONCLUSION: 1. Moderate to large right and small left pleural effusion with associated compressive atelectasis. There additionally is airspace consolidation in the right lower lobe. 2. Small pericardial effusion. 3. There are 2 nodules in the right upper lobe measuring 5 mm and 10 mm. Suggest attention to these at followup imaging. Tra Ma MD Brain MRI 02/16/17 0000 Signed Impressions: Service Date/Time: Thursday, February 16, 2017 13:44 - CONCLUSION: Atrophy and extensive white matter disease as well as micro-bleeds the route the cerebral hemispheres and cerebellum. Punctate foci of acute infarction are suspected within the bilateral frontal white matter as described above. Scott Garcia MD Abdomen/Pelvis CT 02/16/17 0000 Signed Impressions: Service Date/Time: Thursday, February 16, 2017 13:26 - CONCLUSION: 1. Diffuse body wall edema, bilateral effusions, pericardial effusion and lower lobe atelectasis and consolidation. 2. Atherosclerosis. Scott Garcia MD Abdomen X-Ray 02/15/17 0000 Signed Impressions: Service Date/Time: February 11:42 - CONCLUSION: Nonspecific abdomen appearance. Tra Garibay MD Head CT 02/07/171946 Signed Impressions: Service Date/Time: Tuesday, February 07, 2017 20:03 - CONCLUSION: No acute intracranial injury Tra Garibay MD Objective Remarks GENERAL: 86-year-old [place] male, critically ill currently on ventilator via tracheostomy SKIN: Warm and dry. No rash HEAD: Atraumatic. Normocephalic. EYES: Pupils equal and round about 3-4 mm bilaterally and reactive. No scleral icterus. No injection or drainage. ENT: No nasal bleeding or discharge. Mucous membranes pink and moist. Oropharynx without erythema. Tracheostomy site is clean dry and intact with no drainage NECK: Trachea midline. Minimal JVD. CARDIOVASCULAR: RRR. S1, S2. No S4. Faint systolic murmur 1-2 out of 6 RESPIRATORY: Few crackles in bases bilaterally. No wheeze GASTROINTESTINAL: Abdomen slightly protuberant . Nontender. Hypoactive bowel sounds are appreciated. PEG tube site is clean dry and intact. Tolerating tube feeds : Large amount of scrotal edema. MUSCULOSKELETAL: Extremities with 1-2+ upper and lower extremity pitting edema. No obvious deformities. NEUROLOGICAL: Some facial grimacing. Withdraws all extremities. 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 . Oxycodone has been increased to 10 mg q 4hours scheduled. Seroquel [address] q8. Off propofol drip CT head 4/5 negative for acute disease MRI brain 02/16 revealed increased fluid in the bilateral centrum semi-ovale and PV WM, remote basal ganglia infarcts bilaterally and PV WM. Punctuate micro- bleeds throughout. MRA brain 02/19 revealed left P2 segment TECHNICAL COMMUNICATOR high-grade stenosis MRI neck - 02/19 - Anatomical Variant Cir., [place]. Left vertebral takes off from aortic arch. Neurology consult Dr. Robbie tellez. Noted echo 02/12 no vegetations. 02/19 revealed 2 x 4 mm mitral valve leaflet and tricuspid valve lateral leaflet likely vegetation. - See infectious disease Not a anticoagulation candidate per neurology due to micro-hemorrhages. Currently on aspirin 81 mg daily EEG 02/16 reveals moderate to severe encephalopathy. No epileptiform activity. Respiratory: Acute hypoxic respiratory failure Aspiration pneumonitis Ladwg-pw-tdxtevi aspiration Mod to large R effusion/small left pleural effusion Right upper lobe pulmonary nodules 5 and 10 mm. Recommend follow up CT in 3-6 months [facility] 16/550/1/530. Tolerating CPAP 08/09 with RSBI high 30s to 40s. Start on 03/09 tomorrow and plan for tpiece trials if appropriate. -- vent bundle Bronchodilator therapy every 6 hours with albuterol every 2 hours for breakthrough -- HOB at 30 degrees -- wean fiO2 for goal spo2 > 90% CT chest 02/16 revealed moderate to large right pleural effusion and atelectasis/ small left pleural effusion. Status post placement of pigtail catheter right effusion 02/17. Removed 02/28 Tracheostomy 02/[address] Zurita, Cardiovascular: Atrial Fibrillation with Rapid Ventricular Response- resolved. Sinus tachycardia Distributive shock-resolved Acute systolic heart failure Small pericardial effusion Echocardiogram 02/12 revealed EF 30-35%. Moderate TR. MARIA 53 mmHg. revealed EF 35%. Hypokinesis global. Small Mobile densities tricuspid and mitral valve ? vegetation question right MARIA 52 mmHg. -- Off Cardizem drip for HR control Home medications: metoprolol 50 mg daily, losartan 100 mg daily and hydralazine 50 mg twice a day currently on hold. Hypertensive, tachycardic. Increased metoprolol 50 bid on 03/03, still hypertensive so will increase to 75 bid. Hydralazine 25 3 times a day, consider discontinue if can control with betablocker as may be contributing to tachycardia. Renal: Hypophosphatemia Acute Kidney Injury secondary to ATN secondary to hypoperfusion Zimmerman to monitor accurate UOP on patient who is critically ill on diuretics. Creatinine stabilized around 1.3-1.5. Nephrology signed off. Volume overloaded. Give Bumex 1 mg IV every 12 hours 2 doses. Will redose Bumex today , but need to recheck electrolytes first. On free water 110 ml q8 Replace phos per ICU electrolyte replacement protocol. FEN/GI: Acute protein calorie malnutrition- severe C.Difficile Colitis Diarrhea Acute on chronic Aspiration Constipation TF with Jevity 1.5 goal 60 cc an hour resumed 02/27. Colace twice a day/Senokot twice a day. Miralax daily is being held. CT abdomen/pelvis revealed pericardial effusion, bilateral pleural effusions. Significant edema Repeat CT abdomen/pelvis with distended abdomen. Revealed right L1/left L3 transverse process fracture. Anasarca. PEG tube by Dr. Cox Heme/ID: C. 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 Garcia following ABX per ID Completed 14 day course of flagyl 02/23 for aspiration and C diff. 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 Anticipated complete date March 20. Pertinent cultures 02/07 - blood cultures 2 - no growth 02/08 - stool -- C. difficile positive 02/09 - blood cultures 2 - no growth 02/12 - urine - no growth 02/13 - sputum - no growth 02/15 - blood cultures 2 - no growth 02/18 - urine - no growth 02/21 - blood no growth to date Endocrine: Hyperglycemia of critical illness (resolved) HAs not required sliding scale in many days. Tolerating tube feeds. D/c insulin . Prophylaxis: SCDs, SQH held with micro-hemorrhages and concern for septic emboli and risk of hemorrhage. Discussed with Dr. Avalos, neurology on 03/03 and he recommends continue to hold subcut heparin until after completed full course of Abx due to concern for endocarditis. Protonix for GI prophylaxis Geraldine Morgan [phone] is health care proxy. Daughter in charge of finances. Wish to have aggressive care. Dr. Spangler also discussed with her , and she states she is hopeful for a miracle. Level 2 Soco Spangler MD Mar 04, 2017 19:37
[2017-03-04 22:39] LABS: BICARBONATE 24.9 MEQ/L (21.0-32.0); POTASSIUM 3.9 MEQ/L (3.5-5.1)
[2017-03-04] MEDS ORDERED: POTASSIUM CHLORIDE 20 MEQ PWD PACKET OG-TUBE ONE (23:45)
[2017-03-04] MEDS ORDERED: BUMETANIDE INJ 1 MG/4 ML VIAL IV PUSH ONE (23:45)
[2017-03-05] VITALS (19 sets, daily range): BP systolic 118–188; BP diastolic 66–95; PULSE 73–116; RESP 13–21; TEMP 98.7–98.9; O2SAT 10–100
[2017-03-05] MEDS: fentaNYL DRIP 250 ML IV SCH (00:34)
[2017-03-05] MEDS: METOCLOPRAMIDE HCL 10 MG/2 ML VIAL IV PUSH SCH ×4 (00:34→22:12)
[2017-03-05] MEDS: SENNOSIDES SYRUP 8.8 MG/5 ML CUP PO SCH ×3 (00:35→22:11)
[2017-03-05] MEDS: DOCUSATE SODIUM 100 MG/10 ML UDC PO SCH ×3 (00:35→21:00)
[2017-03-05] MEDS: oxyCODONE HCL ORAL CONC 20 MG/ML SYRINGE PO SCH ×6 (00:35→22:11)
[2017-03-05] MEDS: ARTIFICIAL TEARS OPTH SOLN 15 ML BTL EACH EYE SCH ×4 (00:36→22:10)
[2017-03-05] MEDS: CHLORHEXIDINE 0.12% (ORAL KIT) 15 ML CUP MT SCH ×3 (00:36→22:10)
[2017-03-05] MEDS: BACITRACIN TOP OINT 15 GM TUBE TOPICAL SCH ×3 (00:36→22:10)
[2017-03-05] MEDS: FREE WATER G-TUBE SCH ×4 (00:37→22:12)
[2017-03-05] MEDS: RESP: ALBUTEROL 2.5 MG/IPRATROPIUM 0.5 MG NEB (SCH) NEB ×4 (03:18→21:05)
[2017-03-05] MEDS: CEFEPIME INJ 2,000 MG in SODIUM CHLORIDE 0.9% INJ 100 ML IV SCH ×2 (05:22→16:27)
[2017-03-05] MEDS: hydrALAZINE HCL 25 MG TAB PO SCH ×3 (05:30→22:12)
[2017-03-05] MEDS: QUEtiapine FUMARATE 25 MG TAB PO SCH ×3 (05:31→22:12)
[2017-03-05 07:41] LABS: AUTOMATED NEUTROPHIL # 6.2 TH/MM3 (1.8-7.7); BASOPHIL # 0.1 TH/MM3 (0-0.2); BASOPHIL % 0.7 % (0.0-2.0); EOSINOPHIL # 0.7 TH/MM3 (0-0.4); EOSINOPHIL % 7.4 % (0.0-4.0); HEMATOCRIT 26.4 % (39.0-51.0); HEMO FLAGS DIFF FINAL; LYMPH % 13.7 % (9.0-44.0); LYMPHOCYTE # 1.3 TH/MM3 (1.0-4.8); MEAN CELL VOLUME 89.9 FL (80.0-100.0); MEAN CORPUSCULAR HEMOGLOBIN 29.6 PG (27.0-34.0); MONO % 12.4 % (0.0-8.0); NEUT % 65.8 % (16.0-70.0); PLATELET COUNT 262 TH/MM3 (150-450); RED BLOOD COUNT 2.94 MIL/MM3 (4.50-5.90); RED CELL DISTRIBUTION WIDTH 15.3 % (11.6-17.2); WHITE BLOOD COUNT 9.5 TH/MM3 (4.0-11.0)
[2017-03-05 08:13] LABS: BICARBONATE 26.4 MEQ/L (21.0-32.0); POTASSIUM 4.5 MEQ/L (3.5-5.1)
[2017-03-05] MEDS: POLYETHYLENE GLYCOL 17 GM PKG PO SCH (09:00)
--- NOTE | 2017-03-05 09:35 | MG ---
cc: YUMIKO JO M.D. Lab No: [id number] Date: 03/01/2017 Age: Sex: M Race: TECHNIQUE A 17 channel EEG. DESCRIPTION The background activity shows generalized slowing in the delta frequency at roughly 3 hertz. The amplitude is about 20 microvolts. No lateralizing signs are identified. There are no epileptiform features. Some muscle artifact is present. Hyperventilation was not done. Photic stimulation results in a poor driving response. INTERPRETATION Abnormal study consistent with a diffuse significant encephalopathy. MD SULEIMAN Marcos/RANDEE /4:55 PM /9:33 AM
[2017-03-05] MEDS: SODIUM CHLORIDE 0.9% FLUSH 10 ML FLUSH IV FLUSH SCH (10:21)
[2017-03-05] MEDS: METOPROLOL TARTRATE 50 MG TAB PO SCH ×2 (10:22→22:12)
[2017-03-05] MEDS: LACTOBACILLUS ACIDOPHILUS TAB PO SCH ×3 (10:22→16:27)
[2017-03-05] MEDS: ASPIRIN 81 MG CHEW TAB CHEW SCH (10:29)
[2017-03-05] MEDS: COLLAGENASE OINT 30 GM TUBE TOPICAL SCH (10:30)
[2017-03-05] MEDS: VANCOMYCIN INJ 1,500 MG in SODIUM CHLORID 0.9% 500 ML INJ 500 ML IV SCH (12:17)
--- NOTE | 2017-03-05 12:33 | HHI.IDPN ---
Subjective Subjective Remarks Notes reviewed Temps ok On CPAP, tolerating trials S/P trach 02/23 S/P PEG 02/26 BP ok, not on pressors is an 86 y/o AAM (Herber by ) with Dementia who presented with worsening mentation and diagnosed with Pneumonia and Cdiff positive diarrhea. PM records from 2006 indicate no allergies no surgeries. ID following for PNA and Cdiff present on admission. Antibiotics Vancomycin Cefepime Lines Line sites with no evidence of infection Past Medical History Dementia. Allergies: Coded Allergies: No Known Allergies (Verified , 11/22/06) UNOBTAINABLE (Unverified , 02/09/17) Objective . Vital Signs Date Time Temp Pulse Resp B/P Pulse Ox O2 Delivery O2 Flow Rate FiO2 03/05/17 10:00 89 03/05/17 09:39 100 30 03/05/17 08:00 98.9 116 21 152/74 100 03/05/17 08:00 116 03/05/17 08:00 30 03/05/17 06:00 83 03/05/17 04:40 100 30 03/05/17 04:00 85 03/05/17 04:00 30 03/05/17 04:00 98.7 85 16 118/83 100 03/05/17 02:00 76 03/05/17 01:03 100 35 03/05/17 00:00 73 03/05/17 00:00 98.8 73 16 143/78 100 03/05/17 00:00 30 03/04/17 22:00 30 03/04/17 22:00 82 03/04/17 21:45 100 30 03/04/17 20:00 30 03/04/17 20:00 97 03/04/17 20:00 98.9 97 16 158/76 100 03/04/17 18:00 91 03/04/17 16:00 87 03/04/17 16:00 30 03/04/17 16:00 98.4 87 12 121/67 100 03/04/17 15:24 100 30 03/04/17 14:00 82 03/04/17 03/04/17 03/05/17 15:00 23:00 07:00 Intake Total 1424 ml 194 ml 589 ml Output Total 750 ml 300 ml 2100 ml Balance 674 ml -106 ml -1511 ml IV Total 892 ml 66 ml 181 ml Tube Feeding 532 ml 128 ml 288 ml Other 120 ml Output Urine Total 750 ml 300 ml 2100 ml Tube Feeding Residual Discard 0 ml # Bowel Movements 0 1 0 . Laboratory Tests Test 03/05/17 05:17 White Blood Count 9.5 TH/MM3 Red Blood Count 2.94 MIL/MM3 Hemoglobin 8.7 GM/DL Hematocrit 26.4 % Mean Corpuscular Volume 89.9 FL Mean Corpuscular Hemoglobin 29.6 PG Mean Corpuscular Hemoglobin 33.0 % Concent Red Cell Distribution Width 15.3 % Platelet Count 262 TH/MM3 Mean Platelet Volume 9.9 FL Neutrophils (%) (Auto) 65.8 % Lymphocytes (%) (Auto) 13.7 % Monocytes (%) (Auto) 12.4 % Eosinophils (%) (Auto) 7.4 % Basophils (%) (Auto) 0.7 % Neutrophils # (Auto) 6.2 TH/MM3 Lymphocytes # (Auto) 1.3 TH/MM3 Monocytes # (Auto) 1.2 TH/MM3 Eosinophils # (Auto) 0.7 TH/MM3 Basophils # (Auto) 0.1 TH/MM3 CBC Comment DIFF FINAL Differential Comment Laboratory Tests Test 03/04/17 03/05/17 21:35 05:17 Sodium Level 139 MEQ/L 138 MEQ/L Potassium Level 3.9 MEQ/L 4.5 MEQ/L Chloride Level 107 MEQ/L 105 MEQ/L Carbon Dioxide Level 24.9 MEQ/L 26.4 MEQ/L Anion Gap 7 MEQ/L 7 MEQ/L Blood Urea Nitrogen 20 MG/DL 22 MG/DL Creatinine 1.57 MG/DL 1.52 MG/DL Estimat Glomerular Filtration 51 ML/MIN 53 ML/MIN Rate Random Glucose 140 MG/DL 115 MG/DL Calcium Level 7.7 MG/DL 8.2 MG/DL Magnesium Level 2.0 MG/DL Imaging Chest X-Ray 02/28/17 0600 Signed Impressions: Service Date/Time: Tuesday, February 28, 2017 02:22 - CONCLUSION: 1. The small right-sided chest tube is no longer in the right pleural space. The tip is in the subcutaneous soft tissues along the right chest wall. Recommend complete removal. 2. No evidence of pneumothorax. 3. Bibasilar pulmonary infiltrates with effusions. Stevie Fleming MD Chest X-Ray 02/23/17 06 Signed Impressions: Service Date/Time: Thursday, February 23, 2017 04:01 - CONCLUSION: Unchanged bibasilar infiltrates. Kaiser Valiente Jr., MD Chest X-Ray 02/23/17 0000 Signed Impressions: Service Date/Time: Thursday, February 23, 2017 11:49 - CONCLUSION: Bibasilar opacities are present may be due to a combination of consolidation and or pleural effusion. Cheyanne Reveles MD Chest X-Ray 02/22/17 06 Signed Impressions: Service Date/Time: February 03:16 - CONCLUSION: Continue consolidation both lung bases right worse the left. Upper lungs are clear. ET tube in good position. Sanjay Watts MD Neck Magnetic Resonance Angiography 02/19/17 0000 Signed Impressions: Service Date/Time: Sunday, February 19, 2017 09:18 - CONCLUSION: 1. 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 Left vertebral emanates directly from the arch. 2. Otherwise, cervical vessels are all patent with no significant stenosis. Patient is slightly right vertebral dominant distally. Robbie Huggins MD Head Magnetic Resonance Angiography 02/19/17 0000 Signed Impressions: Service Date/Time: Sunday, February 19, 2017 09:18 - CONCLUSION: 1. 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 Intracranial vessels are otherwise patent. 2. No aneurysmal disease. 3. Anatomic variant of the [place] as above. Patient is right vertebral dominant. Robbie Huggins MD Chest X-Ray 02/19/17 0000 Signed Impressions: Service Date/Time: Sunday, February 19, 2017 11:17 - CONCLUSION: No appreciable change in bilateral pleural effusions bibasilar consolidation and/or compressive collapse and probable mild case of pulmonary edema. Cheyanne Reveles MD Physical Exam GENERAL: On the vent, NAD SKIN: Warm and dry. No generalized rash. HEENT: [place] conjunctivae. No scleral icterus. Moist mucosa NECK: Trach in place, site ok, no blood. Supple CARDIOVASCULAR: Regular S1S2 RESPIRATORY: Coarse BS rikki, occ rhonchi GASTROINTESTINAL: Abdomen distended, bowel sounds are present, hypoactive. PEG site ok. Some grimacing with palpation MUSCULOSKELETAL: Extremities without clubbing, cyanosis, or pedal edema. Hands edematous : Has very swollen scrotum, mercado with small amount of sediment NEUROLOGICAL: Sedated PSYCH: Unable to assess LINE: PIV with no evidence of infection Assessment & Plan Remarks IMPRESSION Respiratory failure,S/P trach - S/P RX Aspiration, S/P Rx MV and TV vegetation on recent echo, all BC have been negative - ?GPC, ?GNR - initial echo negative, and this is his second echo that showed the vegetation Has R effusion, has CT in place Pneumonia present on admission: likely aspiration in setting of dementia. S/P Rx C diff positive, clinically resolved Ongoing aspiration. Dementia Acute metabolic encephalopathy Fevers: Concomitant antibiotics for Pneumonia ppting Cdiff, ongoing aspiration - temps better. Renal insufficiency, better Vomiting, better RECOMMENDATION Continue IV Vanco - Pharm doing dosing - aim for trough 15-20 Continue Cefepime 4 week of Abx would be till March 20 - end dates ordered [facility] Monitor temps Monitor progress Weaning per CCM Tricia Garcia MD March 05, 2017 12:33
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
--- NOTE | 2017-03-05 18:04 | HHI.PR ---
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 Would not recommend anticoagulation given the microscopic hemorrhages on MRI and the possibility of septic emboli and mycotic aneurysms which would pose a hemorrhagic risk. Would hold dvt prophylaxis with anticoagulants until antibiotic course for sbe is completed and would repeat a brain MRI to ensure resolution of the microscopic hemorrhages before starting anticoagulation for dvt prophylaxis. Diagnosis/Plan: Subjective Subjective Comments No acute events reported Active Medications Current Medications Medications (Trade) Dose Ordered Sig/Connor Route Start Time Stop Time Status Last Admin (Zofran Inj) 4 mg Q8H PRN IV PUSH 02/07/17 21:45 (Tylenol) 500 mg Q4H PRN PO 02/08/17 13:15 03/02/17 08:01 (Lactinex) 1 tab TID PO 02/09/17 13:00 03/05/17 16:27 (Peridex 0.12% Liq) 15 ml BID@08,20 MT 02/12/17 20:00 03/05/17 08:00 (D50w (Vial) Inj) 25 ml UNSCH PRN IV PUSH 02/12/17 14:30 02/24/17 18:16 (Aspirin Chew) 81 mg DAILY CHEW 02/13/17 09:00 03/05/17 10:29 Miscellaneous Information Patient in critical care unit? Ass... [id number] .XX 02/12/17 22:00 (fentaNYL DRIP) 250 ml @ 0 mls/hr TITRATE IV 02/13/17 01:45 03/05/17 00:34 (Senna Liq) 8.8 mg BID PO 02/17/17 21:00 03/05/17 00:35 (Glycerin Adult Supp) 2 gm BID PRN RECTAL 02/17/17 10:15 (Tears Naturale Opth Soln) 1 drop Q8HR EACH EYE 02/17/17 14:00 03/05/17 10:30 Metoclopramide HCl 5 mg 5 mg Q8HR IV PUSH 02/19/17 14:00 03/05/17 13:47 (Vancomycin Consult Pharmacy) 0 ml @ 0 mls/hr UNSCH OTHER 02/21/17 13:15 Docusate Sodium 100 mg 100 mg BID PO 02/22/17 09:00 03/05/17 00:35 (Maxipime Inj/NS Inj) 100 ml @ 200 mls/hr Q12H IV 02/23/17 16:00 03/20/17 23:00 03/05/17 16:27 (Trandate Inj) 10 mg Q1H PRN IV PUSH 02/24/17 08:00 03/02/17 08:01 (Apresoline Inj) 10 mg Q1H PRN IV PUSH 02/24/17 08:00 03/04/17 05:46 Nitroglycerin 2 inch 2 inch Q6H PRN TOPICAL 02/24/17 08:00 (Vancomycin Inj/ NS 500 ml Inj) 515 ml @ 250 mls/hr Q24H IV 02/28/17 12:00 03/20/17 23:00 Hold 03/05/17 12:17 (Santyl Oint) 1 applic DAILY TOPICAL 03/01/17 09:00 03/05/17 10:30 (Baciguent Oint) 1 applic Q12HR TOPICAL 02/28/17 21:00 03/05/17 10:30 (Miralax) 17 gm DAILY PO 03/01/17 09:00 (NS Flush) See Protocol DAILY IV FLUSH 03/02/17 09:00 03/05/17 10:21 (NS Flush) See Protocol UNSCH PRN IV FLUSH 03/01/17 19:15 03/03/17 06:08 (Heparin Central Flush) See Protocol DAILY IV FLUSH 03/02/17 09:00 (Heparin Central Flush) See Protocol UNSCH PRN IV FLUSH 03/01/17 19:15 (NS Flush) UNSCH PRN IV FLUSH 03/01/17 19:15 03/02/17 08:02 (Roxicodone Intensol Liq) 10 mg Q4HR PO 03/03/17 00:00 03/05/17 16:27 (SEROquel) 50 mg Q8HR PO 03/02/17 22:00 03/05/17 13:47 (Free Water) 110 ml Q8H G-TUBE 03/03/17 02:00 03/05/17 16:27 (Apresoline) 25 mg Q8HR PO 03/02/17 22:00 03/05/17 13:47 Fentanyl Citrate 50 mcg 50 mcg Q2H PRN IV PUSH 03/02/17 21:00 Potassium Chloride 100 ml @ 50 mls/hr Q2H PRN IV 03/03/17 14:30 (KCl 20 Meq Premix Inj) 100 ml @ 50 mls/hr Q2H PRN IV 03/03/17 14:30 Potassium Bicarb/ Potassium Chloride 50 meq 50 meq UNSCH PRN PO 03/03/17 14:30 Potassium Chloride 100 ml @ 25 mls/hr UNSCH PRN IV 03/03/17 14:30 Potassium Chloride 100 ml @ 50 mls/hr Q2H PRN IV 03/03/17 14:30 (Magnesium Sulfate Inj/NS Inj) 100 ml @ 50 mls/hr UNSCH PRN IV 03/03/17 14:30 Magnesium Oxide 800 mg 800 mg UNSCH PRN PO 03/03/17 14:30 (Magnesium Sulfate Inj/NS Inj) 100 ml @ 50 mls/hr UNSCH PRN IV 03/03/17 14:30 Potassium Phosphate 2000 mg 2,000 mg Q4H PRN PO 03/03/17 14:30 (Sodium Phosphate Inj/NS 250 ml Inj) 250 ml @ 42 mls/hr UNSCH PRN IV 03/03/17 14:30 03/03/17 17:44 (K-Phos) 2,000 mg UNSCH PRN PO/TUBE 03/03/17 14:30 (Lopressor) 75 mg Q12HR PO 03/04/17 21:00 03/05/17 10:22 Allergies Allergies Coded Allergies No Known Allergies (Verified11/22/06) UNOBTAINABLE (Unverified02/09/17) Exam I&O / VS 03/04/17 03/04/17 03/05/17 15:00 23:00 07:00 Intake Total 1424 ml 194 ml 589 ml Output Total 750 ml 300 ml 2100 ml Balance 674 ml -106 ml -1511 ml IV Total 892 ml 66 ml 181 ml Tube Feeding 532 ml 128 ml 288 ml Other 120 ml Output Urine Total 750 ml 300 ml 2100 ml Tube Feeding Residual Discard 0 ml # Bowel Movements 0 1 0 Vital Signs Date Time Temp Pulse Resp B/P Pulse Ox O2 Delivery O2 Flow Rate FiO2 03/05/17 17:18 30 03/05/17 17:18 98.8 76 16 133/66 100 03/05/17 16:00 76 03/05/17 14:00 77 03/05/17 12:10 10 30 03/05/17 12:00 30 03/05/17 12:00 112 03/05/17 12:00 98.8 77 18 159/77 100 03/05/17 10:00 89 03/05/17 09:39 100 30 03/05/17 08:00 98.9 116 21 152/74 100 03/05/17 08:00 116 03/05/17 08:00 30 03/05/17 06:00 83 03/05/17 04:40 100 30 03/05/17 04:00 85 03/05/17 04:00 30 03/05/17 04:00 98.7 85 16 118/83 100 03/05/17 02:00 76 03/05/17 01:03 100 35 03/05/17 00:00 73 03/05/17 00:00 98.8 73 16 143/78 100 03/05/17 00:00 30 03/04/17 22:00 30 03/04/17 22:00 82 03/04/17 21:45 100 30 03/04/17 20:00 30 03/04/17 20:00 97 03/04/17 20:00 98.9 97 16 158/76 100 Exam Comments very lethargic does not follow commands Pupils equal 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, no other spontaneous movement Objective Micro and Labs Laboratory Tests Test 03/04/17 03/05/17 21:35 05:17 Sodium Level 139 138 Potassium Level 3.9 4.5 Chloride Level 107 105 Carbon Dioxide Level 24.9 26.4 Anion Gap 7 7 Blood Urea Nitrogen 20 22 Creatinine 1.57 1.52 Estimat Glomerular Filtration 51 53 Rate Random Glucose 140 115 Calcium Level 7.7 8.2 White Blood Count 9.5 Red Blood Count 2.94 Hemoglobin 8.7 Hematocrit 26.4 Mean Corpuscular Volume 89.9 Mean Corpuscular Hemoglobin 29.6 Mean Corpuscular Hemoglobin 33.0 Concent Red Cell Distribution Width 15.3 Platelet Count 262 Mean Platelet Volume 9.9 Neutrophils (%) (Auto) 65.8 Lymphocytes (%) (Auto) 13.7 Monocytes (%) (Auto) 12.4 Eosinophils (%) (Auto) 7.4 Basophils (%) (Auto) 0.7 Neutrophils # (Auto) 6.2 Lymphocytes # (Auto) 1.3 Monocytes # (Auto) 1.2 Eosinophils # (Auto) 0.7 Basophils # (Auto) 0.1 CBC Comment DIFF FINAL Differential Comment Magnesium Level 2.0 Darius Avalos PhD, MD March 05, 2017 18:04
--- NOTE | 2017-03-05 18:20 | HHI.CCPN ---
Subjective Remarks/Hospital Course This is a 86yM who presented from home with altered mental status and end-stage dementia. His hospital course has been complicated by C. Diff and pneumonia for which he is on appropriate therapy. He has been noted to have ayouj-ox-rqwdyiw aspiration during this hospital stay and has been NPO. Today, a rapid response was called for acute respiratory distress and hypoxia. I was called by Dr. Velez at the rapid response. He believe this is an aspiration event given the patient's clinical history. I immediately went and evaluated the patient. He is labored and in distress. his spo2 is 93% on non-rebreather. He is also in what appears to be new-onset atrial fibrillation with RVR and a HR 160s. Brief review of the pertinent laboratory data demonstrate worsening acute kidney injury, worsening anion-gap metabolic acidosis. Critical care medicine is consulted to evaluate and manage his severe respiratory distress and afib RVR. Unfortunately, the patient is obtunded and cannot provide any additional history. 02/13: no clinical improvements. remains in multiorgan system failure. diltiazem drip weaned to off, but remains on phenylephrine. talked with nephrology who feel clinically, despite some element of JVD, that patient is clinically intravascularly hypovolemic and they recommend gentle ivf hydration, which I am ok with as a trial. mental status poor. kidney injury persists. palliative involved. apparently daughter is not health care surrogate legally, but has been making decisions in the outpatient setting. multiple disagreements within the family. appreciate palliative involvement. 02/14: Renal function continues to worsen and today 57/4.1. D/w Nephrology. If family wants everything done, will need to proceed with HD. Tmax 101.1. ID following 02/15: Remains critically ill, did not tolerate brief CPAP trial. CXR shows mod to large R pl effusion. MAXIMUM TEMPERATURE 100.5. Creatinine slightly improved with urine output more than 1.4 L 02/16: Patient remains intubated, lightly sedated.. Did not tolerate C-peptide yesterday due to tachypnea. CT of the chest shows moderately large right effusion plan for thoracentesis 02/17: Tmax 100.7. No bowel movement since 02/12. On sedation vacation withdrawals but does not follow commands. Tolerating tube feeds at goal. 02/18: Afebrile. One bowel movement overnight. Tolerating tube feeding. Placement of 10 German pigtail catheter with 600 cc likely transudative effusion. Tachycardic this AM. 02/19: Currently down for CT abdomen/pelvis with distended abdomen. Also MRA brain/neck with acute/subacute bifrontal CVA. Neurology consult pending. Will likely need tracheostomy. 02/20: Noted emesis last night [address] abdomen/pelvis unremarkable. Moderate gastric output. Started on Reglan. Positive BM. 02/21: Afebrile. Tolerating trickle feeds. One bowel movement. Noted echocardiogram report yesterday. Discussed with Dr. Garcia - blood cultures 2, vancomycin. Reassess in a.m.. Attempting to obtain consent for tracheostomy with . 02/22: Neuro exam unchanged. Mental status will not permit extubation. UO adequate, creat improving. Tracheostomy tomorrow 02/23: Creat continues to improve, no change in mentation. Trach with Parminder today, GI consulted for PEG placement. 02/24: Afebrile. Status post tracheostomy by Dr. Zurita yesterday. Unable to replace gastric tube secondary to bleeding. Plan for PEG on Sunday. 02/25: Currently afebrile. Tracheostomy without bleeding. Hypertensive requiring when necessary's. Plan for PEG Monday 02/26: Afebrile. Check yesterday was unpacked last night. Repacked today. On sedation. Plan for PEG today. 02/27: Afebrile. Chest without bleeding. Continues to be on sedation due to agitation. PEG tube yesterday without competition. Plan remove chest tube today. 02/28: Resting currently in bed. No change in neurological status. Tracheostomy without bleeding. No acute issues. 03/01: Afebrile. More tremulous this a.m. upon removal of fentanyl drip. Currently on PSV trial. Positive BM 2. Tolerating tube feeds at 35 cc an hour. Neurological status unchanged. 03/02: Tmax 100.7. Currently 98.9. One bowel movement yesterday. Tolerating tube feeds at 40 cc an hour. Becomes agitated with removal of fentanyl drip. 03/03 WBC 15.3. Afebrile. On vanc and cefepime per ID. Tolerating CPAP 08/09 with RSBI 40s 03/04 Diuresed net -1.1 L yesterday. Tolerating C Pap 10 over 5 very well and appears can wean further. Subjective: 03/05: continues to diurese well. still tolerates cpap. awaiting placement. Objective Vital Signs Date Time Temp Pulse Resp B/P Pulse Ox O2 Delivery O2 Flow Rate FiO2 03/05/17 17:18 30 03/05/17 17:18 98.8 76 16 133/66 100 Intake and Output 03/04/17 03/04/17 03/05/17 08:00 16:00 00:00 Intake Total 579 ml 1424 ml 194 ml Output Total 1200 ml 750 ml 300 ml Balance -621 ml 674 ml -106 ml Result Diagram: 03/05/1751603/05/17516 Imaging Last Impressions Chest X-Ray 03/01/17 0000 Signed Impressions: Service Date/Time: February 18:33 - CONCLUSION: Placement of a PICC line otherwise not significantly changed. Cheyanne Reveles MD Neck Magnetic Resonance Angiography 02/19/17 0000 Signed Impressions: Service Date/Time: Sunday, February 19, 2017 09:18 - CONCLUSION: 1. 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 Left vertebral emanates directly from the arch. 2. Otherwise, cervical vessels are all patent with no significant stenosis. Patient is slightly right vertebral dominant distally. Robbie Huggins MD Head Magnetic Resonance Angiography 02/19/17 0000 Signed Impressions: Service Date/Time: Sunday, February 19, 2017 09:18 - CONCLUSION: 1. 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 Intracranial vessels are otherwise patent. 2. No aneurysmal disease. 3. Anatomic variant of the [place] as above. Patient is right vertebral dominant. Robbie Huggins MD Chest CT 02/16/17 0000 Signed Impressions: Service Date/Time: Thursday, February 16, 2017 13:26 - CONCLUSION: 1. Moderate to large right and small left pleural effusion with associated compressive atelectasis. There additionally is airspace consolidation in the right lower lobe. 2. Small pericardial effusion. 3. There are 2 nodules in the right upper lobe measuring 5 mm and 10 mm. Suggest attention to these at followup imaging. Tra Ma MD Brain MRI 02/16/17 0000 Signed Impressions: Service Date/Time: Thursday, February 16, 2017 13:44 - CONCLUSION: Atrophy and extensive white matter disease as well as micro-bleeds the route the cerebral hemispheres and cerebellum. Punctate foci of acute infarction are suspected within the bilateral frontal white matter as described above. Scott Gacria MD Abdomen/Pelvis CT 02/16/17 0000 Signed Impressions: Service Date/Time: Thursday, February 16, 2017 13:26 - CONCLUSION: 1. Diffuse body wall edema, bilateral effusions, pericardial effusion and lower lobe atelectasis and consolidation. 2. Atherosclerosis. Scott Garcia MD Abdomen X-Ray 02/15/17 0000 Signed Impressions: Service Date/Time: February 11:42 - CONCLUSION: Nonspecific abdomen appearance. Tra Garibay MD Head CT 02/07/171946 Signed Impressions: Service Date/Time: Tuesday, February 07, 2017 20:03 - CONCLUSION: No acute intracranial injury Tra Garibay MD Objective Remarks GENERAL: 86-year-old [place] male, critically ill currently on ventilator via tracheostomy SKIN: Warm and dry. No rash HEAD: Atraumatic. Normocephalic. EYES: Pupils equal and round about 3-4 mm bilaterally and reactive. No scleral icterus. No injection or drainage. ENT: No nasal bleeding or discharge. Mucous membranes pink and moist. Oropharynx without erythema. Tracheostomy site is clean dry and intact with no drainage NECK: Trachea midline. Minimal JVD. CARDIOVASCULAR: RRR. RESPIRATORY: Few crackles in bases bilaterally. No wheeze GASTROINTESTINAL: Abdomen slightly protuberant . Nontender. PEG tube site is clean dry and intact. Tolerating tube feeds : Large amount of scrotal edema. MUSCULOSKELETAL: Extremities with 1-2+ upper and lower extremity pitting edema. No obvious deformities. NEUROLOGICAL: Some facial grimacing. Withdraws all extremities. Procedures None A/P Assessment and Plan Neuro/Psych: Acute metabolic encephalopathy End-stage dementia Right BRANCH CHIEF high-grade stenosis Still remains on fentanyl 100 mcg/hr. . Oxycodone has been increased to 10 mg q 4hours scheduled. Seroquel 50 q8. will add breakthrough haldol 5mg iv q4h prn. CT head 02/07 negative for acute disease MRI brain 02/16 revealed increased fluid in the bilateral centrum semi-ovale and PV WM, remote basal ganglia infarcts bilaterally and PV WM. Punctuate micro- bleeds throughout. MRA brain 02/19 revealed left P2 segment BRANCH CHIEF high-grade stenosis MRI neck - 02/19 - Anatomical Variant Cir., [place]. Left vertebral takes off from aortic arch. Neurology consult Dr. Robbie tellez. Noted echo 02/12 no vegetations. 02/19 revealed 2 x 4 mm mitral valve leaflet and tricuspid valve lateral leaflet likely vegetation. - See infectious disease Not a anticoagulation candidate per neurology due to micro-hemorrhages. Currently on aspirin 81 mg daily EEG 02/16 reveals moderate to severe encephalopathy. No epileptiform activity. Respiratory: Acute hypoxic respiratory failure Aspiration pneumonitis [place] aspiration Mod to large R effusion/small left pleural effusion Right upper lobe pulmonary nodules 5 and 10 mm. Recommend follow up CT in 3-6 months PRVC 16/550/1/530. Tolerating CPAP 08/09 with RSBI high 30s to 40s. continue to wean as tolerated. -- vent bundle Bronchodilator therapy every 6 hours with albuterol every 2 hours for breakthrough -- HOB at 30 degrees -- wean fiO2 for goal spo2 > 90% CT chest 02/16 revealed moderate to large right pleural effusion and atelectasis/ small left pleural effusion. Status post placement of pigtail catheter right effusion 02/17. Removed 02/28 Tracheostomy 02/[address] Zurita, Cardiovascular: Atrial Fibrillation with Rapid Ventricular Response- resolved. Sinus tachycardia- resolved. Distributive shock-resolved Acute systolic heart failure Small pericardial effusion Echocardiogram 02/12 revealed EF 30-35%. Moderate TR. MARIA 53 mmHg. revealed EF 35%. Hypokinesis global. Small Mobile densities tricuspid and mitral valve ? vegetation question right MARIA 52 mmHg. -- Off Cardizem drip for HR control Home medications: metoprolol 50 mg daily, losartan 100 mg daily and hydralazine 50 mg twice a day currently on hold. Hypertensive, tachycardic. Increased metoprolol 50 bid on 03/03, still hypertensive so will increase to 75 bid. Hydralazine 25mg 3 times a day Renal: Hypophosphatemia Acute Kidney Injury secondary to ATN secondary to hypoperfusion Zimmerman to monitor accurate UOP on patient who is critically ill on diuretics. Creatinine stabilized around 1.3-1.5. Nephrology signed off. Volume overloaded. bumex 1mg iv x 1 again today. goal euvolemia. On free water 100 ml q8 Replace phos per ICU electrolyte replacement protocol. FEN/GI: Acute protein calorie malnutrition- severe C.Difficile Colitis Diarrhea Acute on chronic Aspiration Constipation TF with Jevity 1.5 goal 60 cc an hour resumed 02/27. Colace twice a day/Senokot twice a day. Miralax daily is being held. CT abdomen/pelvis revealed pericardial effusion, bilateral pleural effusions. Significant edema Repeat CT abdomen/pelvis with distended abdomen. Revealed right L1/left L3 transverse process fracture. Anasarca. PEG tube by Dr. Cox Heme/ID: C. 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 Garcia following ABX per ID Completed 14 day course of flagyl 02/23 for aspiration and C diff. 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 Anticipated complete date March 20. Pertinent cultures 02/07 - blood cultures 2 - no growth 02/08 - stool -- C. difficile positive 02/09 - blood cultures 2 - no growth 02/12 - urine - no growth 02/13 - sputum - no growth 02/15 - blood cultures 2 - no growth 02/18 - urine - no growth 02/21 - blood no growth to date Endocrine: Hyperglycemia of critical illness (resolved) HAs not required sliding scale in many days. Tolerating tube feeds. D/c insulin . Prophylaxis: SCDs, SQH held with micro-hemorrhages and concern for septic emboli and risk of hemorrhage. Discussed with Dr. Avalos, neurology on 03/03 and he recommends continue to hold subcut heparin until after completed full course of Abx due to concern for endocarditis. Protonix for GI prophylaxis Geraldine Morgan [phone] is health care proxy. Daughter in charge of finances. Wish to have aggressive care. Dr. Spangler also discussed with her , and she states she is hopeful for a miracle. Level 2 Fantasma Demarco MD March 05, 2017 18:20
[2017-03-05] MEDS ORDERED: HALOPERIDOL LACTATE 5 MG/ML AMP IV PRN (19:00)
[2017-03-05] MEDS ORDERED: BUMETANIDE INJ 1 MG/4 ML VIAL IV PUSH ONE (19:00)
[2017-03-06] VITALS (18 sets, daily range): BP systolic 135–181; BP diastolic 77–91; PULSE 80–118; RESP 12–20; TEMP 98.8–99.8; O2SAT 100
[2017-03-06] MEDS: fentaNYL DRIP 250 ML IV SCH (01:26)
[2017-03-06] MEDS: oxyCODONE HCL ORAL CONC 20 MG/ML SYRINGE PO SCH ×6 (01:26→20:56)
[2017-03-06] MEDS: RESP: ALBUTEROL 2.5 MG/IPRATROPIUM 0.5 MG NEB (SCH) NEB ×4 (03:47→19:54)
[2017-03-06] MEDS: hydrALAZINE HCL 25 MG TAB PO SCH ×3 (06:30→21:01)
[2017-03-06] MEDS: QUEtiapine FUMARATE 25 MG TAB PO SCH ×3 (06:30→20:58)
[2017-03-06] MEDS: METOCLOPRAMIDE HCL 10 MG/2 ML VIAL IV PUSH SCH ×3 (06:31→20:55)
[2017-03-06] MEDS: CEFEPIME INJ 2,000 MG in SODIUM CHLORIDE 0.9% INJ 100 ML IV SCH ×2 (06:49→15:36)
[2017-03-06] MEDS: ARTIFICIAL TEARS OPTH SOLN 15 ML BTL EACH EYE SCH ×3 (06:49→20:59)
[2017-03-06 07:17] LABS: HEMATOCRIT 25.1 % (39.0-51.0); MEAN CELL VOLUME 88.2 FL (80.0-100.0); MEAN CORPUSCULAR HGB CONC 35.2 % (32.0-36.0); PLATELET COUNT 289 TH/MM3 (150-450); RED BLOOD COUNT 2.84 MIL/MM3 (4.50-5.90); RED CELL DISTRIBUTION WIDTH 15.3 % (11.6-17.2); REVIEW FLAG FINAL; WHITE BLOOD COUNT 9.3 TH/MM3 (4.0-11.0)
[2017-03-06 07:44] LABS: BICARBONATE 26.2 MEQ/L (21.0-32.0); POTASSIUM 4.4 MEQ/L (3.5-5.1)
[2017-03-06] MEDS: METOPROLOL TARTRATE 50 MG TAB PO SCH ×2 (08:14→21:01)
[2017-03-06] MEDS: ASPIRIN 81 MG CHEW TAB CHEW SCH (08:14)
[2017-03-06] MEDS: LACTOBACILLUS ACIDOPHILUS TAB PO SCH ×3 (08:14→16:32)
[2017-03-06] MEDS: CHLORHEXIDINE 0.12% (ORAL KIT) 15 ML CUP MT SCH ×2 (08:15→20:59)
[2017-03-06] MEDS: POLYETHYLENE GLYCOL 17 GM PKG PO SCH (08:16)
[2017-03-06] MEDS: DOCUSATE SODIUM 100 MG/10 ML UDC PO SCH ×2 (08:16→20:57)
[2017-03-06] MEDS: SENNOSIDES SYRUP 8.8 MG/5 ML CUP PO SCH ×2 (08:16→20:57)
[2017-03-06] MEDS: SODIUM CHLORIDE 0.9% FLUSH 10 ML FLUSH IV FLUSH SCH (08:16)
[2017-03-06] MEDS: COLLAGENASE OINT 30 GM TUBE TOPICAL SCH (08:17)
[2017-03-06] MEDS: BACITRACIN TOP OINT 15 GM TUBE TOPICAL SCH ×2 (08:17→20:59)
[2017-03-06] MEDS: FREE WATER G-TUBE SCH ×2 (08:18→16:32)
--- NOTE | 2017-03-06 09:04 | HHI.IDPN ---
Subjective Subjective Remarks Notes reviewed Temps ok On CPAP, tolerating trials Has been denied at [facility] S/P trach 02/23 S/P PEG 02/26 BP ok, not on pressors is an 86 y/o AAM ([place] by ) with Dementia who presented with worsening mentation and diagnosed with Pneumonia and Cdiff positive diarrhea. PM records from 2006 indicate no allergies no surgeries. ID following for PNA and Cdiff present on admission. Antibiotics Vancomycin Cefepime Lines Line sites with no evidence of infection Past Medical History Dementia. Allergies: Coded Allergies: No Known Allergies (Verified , 11/22/06) UNOBTAINABLE (Unverified , 02/09/17) Objective . Vital Signs Date Time Temp Pulse Resp B/P Pulse Ox O2 Delivery O2 Flow Rate FiO2 03/06/17 08:03 100 30 03/06/17 06:00 88 03/06/17 04:19 100 30 03/06/17 04:00 99.7 86 12 181/91 100 03/06/17 04:00 86 03/06/17 04:00 30 03/06/17 02:00 85 03/06/17 00:15 100 30 03/06/17 00:00 30 03/06/17 00:00 80 03/06/17 00:00 99.8 80 12 166/77 100 03/05/17 22:00 105 03/05/17 20:58 100 30 03/05/17 20:00 87 03/05/17 20:00 98.7 89 13 188/95 100 03/05/17 20:00 30 03/05/17 18:30 100 30 03/05/17 18:00 92 03/05/17 17:18 30 03/05/17 17:18 98.8 76 16 133/66 100 03/05/17 16:00 76 03/05/17 14:00 77 03/05/17 12:10 10 30 03/05/17 12:00 30 03/05/17 12:00 112 03/05/17 12:00 98.8 77 18 159/77 100 03/05/17 10:00 89 03/05/17 09:39 100 30 03/05/17 03/05/17 03/06/17 15:00 23:00 07:00 Intake Total 1137 ml 803 ml 723 ml Output Total 525 ml 600 ml 1200 ml Balance 612 ml 203 ml -477 ml IV Total 690 ml 364 ml 288 ml Tube Feeding 327 ml 319 ml 275 ml Other 120 ml 120 ml 160 ml Output Urine Total 525 ml 600 ml 1200 ml Tube Feeding Residual Discard 0 ml 0 ml # Bowel Movements 0 0 0 . Laboratory Tests Test 03/05/17 03/06/17 05:17 06:40 White Blood Count 9.5 TH/MM3 9.3 TH/MM3 Red Blood Count 2.94 MIL/MM3 2.84 MIL/MM3 Hemoglobin 8.7 GM/DL 8.8 GM/DL Hematocrit 26.4 % 25.1 % Mean Corpuscular Volume 89.9 FL 88.2 FL Mean Corpuscular Hemoglobin 29.6 PG 31.0 PG Mean Corpuscular Hemoglobin 33.0 % 35.2 % Concent Red Cell Distribution Width 15.3 % 15.3 % Platelet Count 262 TH/MM3 289 TH/MM3 Mean Platelet Volume 9.9 FL 9.0 FL Neutrophils (%) (Auto) 65.8 % Lymphocytes (%) (Auto) 13.7 % Monocytes (%) (Auto) 12.4 % Eosinophils (%) (Auto) 7.4 % Basophils (%) (Auto) 0.7 % Neutrophils # (Auto) 6.2 TH/MM3 Lymphocytes # (Auto) 1.3 TH/MM3 Monocytes # (Auto) 1.2 TH/MM3 Eosinophils # (Auto) 0.7 TH/MM3 Basophils # (Auto) 0.1 TH/MM3 CBC Comment DIFF FINAL Differential Comment Laboratory Tests Test 03/04/17 03/05/17 03/06/17 21:35 05:17 06:40 Sodium Level 139 MEQ/L 138 MEQ/L 137 MEQ/L Potassium Level 3.9 MEQ/L 4.5 MEQ/L 4.4 MEQ/L Chloride Level 107 MEQ/L 105 MEQ/L 105 MEQ/L Carbon Dioxide Level 24.9 MEQ/L 26.4 MEQ/L 26.2 MEQ/L Anion Gap 7 MEQ/L 7 MEQ/L 6 MEQ/L Blood Urea Nitrogen 20 MG/DL 22 MG/DL 26 MG/DL Creatinine 1.57 MG/DL 1.52 MG/DL 1.63 MG/DL Estimat Glomerular Filtration 51 ML/MIN 53 ML/MIN 49 ML/MIN Rate Random Glucose 140 MG/DL 115 MG/DL 134 MG/DL Calcium Level 7.7 MG/DL 8.2 MG/DL 8.2 MG/DL Magnesium Level 2.0 MG/DL Imaging Chest X-Ray 02/28/17 0600 Signed Impressions: Service Date/Time: Tuesday, February 28, 2017 02:22 - CONCLUSION: 1. The small right-sided chest tube is no longer in the right pleural space. The tip is in the subcutaneous soft tissues along the right chest wall. Recommend complete removal. 2. No evidence of pneumothorax. 3. Bibasilar pulmonary infiltrates with effusions. Stevie Fleming MD Chest X-Ray 02/23/17 06 Signed Impressions: Service Date/Time: Thursday, February 23, 2017 04:01 - CONCLUSION: Unchanged bibasilar infiltrates. Kaiser Valiente Jr., MD Chest X-Ray 02/23/17 0000 Signed Impressions: Service Date/Time: Thursday, February 23, 2017 11:49 - CONCLUSION: Bibasilar opacities are present may be due to a combination of consolidation and or pleural effusion. Cheyanne Reveles MD Chest X-Ray 02/22/17599 Signed Impressions: Service Date/Time: February 03:16 - CONCLUSION: Continue consolidation both lung bases right worse the left. Upper lungs are clear. ET tube in good position. Sanjay Watts MD Neck Magnetic Resonance Angiography 02/19/17 0000 Signed Impressions: Service Date/Time: Sunday, February 19, 2017 09:18 - CONCLUSION: 1. 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 Left vertebral emanates directly from the arch. 2. Otherwise, cervical vessels are all patent with no significant stenosis. Patient is slightly right vertebral dominant distally. Robbie Huggins MD Head Magnetic Resonance Angiography 02/19/17 0000 Signed Impressions: Service Date/Time: Sunday, February 19, 2017 09:18 - CONCLUSION: 1. 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 Intracranial vessels are otherwise patent. 2. No aneurysmal disease. 3. Anatomic variant of the [place] of [place] as above. Patient is right vertebral dominant. Robbie Huggins MD Chest X-Ray 02/19/17 0000 Signed Impressions: Service Date/Time: Sunday, February 19, 2017 11:17 - CONCLUSION: No appreciable change in bilateral pleural effusions bibasilar consolidation and/or compressive collapse and probable mild case of pulmonary edema. Cheyanne Reveles MD Physical Exam GENERAL: On the vent, NAD SKIN: Warm and dry. No generalized rash. HEENT: [place] conjunctivae. No scleral icterus. Moist mucosa NECK: Trach in place, site ok, no blood. Supple CARDIOVASCULAR: Regular S1S2 RESPIRATORY: Coarse BS rikki, occ rhonchi GASTROINTESTINAL: Abdomen distended, bowel sounds are present, hypoactive. PEG site ok. Some grimacing with palpation MUSCULOSKELETAL: Extremities without clubbing, cyanosis, or pedal edema. Hands edematous : Has very swollen scrotum, merc[place] with small amount of sediment NEUROLOGICAL: Sedated PSYCH: Unable to assess LINE: PIV with no evidence of infection Assessment & Plan Remarks IMPRESSION Respiratory failure,S/P trach - S/P RX Aspiration, S/P Rx MV and TV vegetation on recent echo, all BC have been negative - ?GPC, ?GNR - initial echo negative, and this is his second echo that showed the vegetation Has R effusion, has CT in place Pneumonia present on admission: likely aspiration in setting of dementia. S/P Rx C diff positive, clinically resolved Ongoing aspiration. Dementia Acute metabolic encephalopathy Fevers: Concomitant antibiotics for Pneumonia ppting Cdiff, ongoing aspiration - temps better. Renal insufficiency Vomiting, better RECOMMENDATION Continue IV Vanco - Pharm doing dosing - aim for trough 15-20 Continue Cefepime 4 week of Abx would be till March 20 - end dates ordered in [facility] Labs at least once a week while on IV Abx: CBC, creat, LFT Monitor temps Monitor progress Trying to get LTAC Weaning per CCM Tricia Garcia MD March 06, 2017 09:03
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
--- NOTE | 2017-03-06 20:39 | HHI.CCPN ---
Subjective Remarks/Hospital Course This is a 86yM who presented from home with altered mental status and end-stage dementia. His hospital course has been complicated by C. Diff and pneumonia for which he is on appropriate therapy. He has been noted to have [id number]-[id number] aspiration during this hospital stay and has been NPO. Today, a rapid response was called for acute respiratory distress and hypoxia. I was called by Dr. Velez at the rapid response. He believe this is an aspiration event given the patient's clinical history. I immediately went and evaluated the patient. He is labored and in distress. his spo2 is 93% on non-rebreather. He is also in what appears to be new-onset atrial fibrillation with RVR and a HR 160s. Brief review of the pertinent laboratory data demonstrate worsening acute kidney injury, worsening anion-gap metabolic acidosis. Critical care medicine is consulted to evaluate and manage his severe respiratory distress and afib RVR. Unfortunately, the patient is obtunded and cannot provide any additional history. 02/13: no clinical improvements. remains in multiorgan system failure. diltiazem drip weaned to off, but remains on phenylephrine. talked with nephrology who feel clinically, despite some element of JVD, that patient is clinically intravascularly hypovolemic and they recommend gentle ivf hydration, which I am ok with as a trial. mental status poor. kidney injury persists. palliative involved. apparently daughter is not health care surrogate legally, but has been making decisions in the outpatient setting. multiple disagreements within the family. appreciate palliative involvement. 02/14: Renal function continues to worsen and today 57/4.1. D/w Nephrology. If family wants everything done, will need to proceed with HD. Tmax 101.1. ID following 02/15: Remains critically ill, did not tolerate brief CPAP trial. CXR shows mod to large R pl effusion. MAXIMUM TEMPERATURE 100.5. Creatinine slightly improved with urine output more than 1.4 L 02/16: Patient remains intubated, lightly sedated.. Did not tolerate C-peptide yesterday due to tachypnea. CT of the chest shows moderately large right effusion plan for thoracentesis 02/17: Tmax 100.7. No bowel movement since 02/12. On sedation vacation withdrawals but does not follow commands. Tolerating tube feeds at goal. 02/18: Afebrile. One bowel movement overnight. Tolerating tube feeding. Placement of 10 [place] pigtail catheter with 600 cc likely transudative effusion. Tachycardic this AM. 02/19: Currently down for CT abdomen/pelvis with distended abdomen. Also MRA brain/neck with acute/subacute bifrontal CVA. Neurology consult pending. Will likely need tracheostomy. 02/20: Noted emesis last night [address] abdomen/pelvis unremarkable. Moderate gastric output. Started on Reglan. Positive BM. 02/21: Afebrile. Tolerating trickle feeds. One bowel movement. Noted echocardiogram report yesterday. Discussed with Dr. Garcia - blood cultures 2, vancomycin. Reassess in a.m.. Attempting to obtain consent for tracheostomy with . 02/22: Neuro exam unchanged. Mental status will not permit extubation. UO adequate, creat improving. Tracheostomy tomorrow 02/23: Creat continues to improve, no change in mentation. Trach with Parminder today, GI consulted for PEG placement. 02/24: Afebrile. Status post tracheostomy by Dr. Zurita yesterday. Unable to replace gastric tube secondary to bleeding. Plan for PEG on Sunday. 02/25: Currently afebrile. Tracheostomy without bleeding. Hypertensive requiring when necessary's. Plan for PEG Monday 02/26: Afebrile. Check yesterday was unpacked last night. Repacked today. On sedation. Plan for PEG today. 02/27: Afebrile. Chest without bleeding. Continues to be on sedation due to agitation. PEG tube yesterday without competition. Plan remove chest tube today. 02/28: Resting currently in bed. No change in neurological status. Tracheostomy without bleeding. No acute issues. 03/01: Afebrile. More tremulous this a.m. upon removal of fentanyl drip. Currently on PSV trial. Positive BM 2. Tolerating tube feeds at 35 cc an hour. Neurological status unchanged. 03/02: Tmax 100.7. Currently 98.9. One bowel movement yesterday. Tolerating tube feeds at 40 cc an hour. Becomes agitated with removal of fentanyl drip. 03/03 WBC 15.3. Afebrile. On vanc and cefepime per ID. Tolerating CPAP 08/09 with RSBI 40s 03/04 Diuresed net -1.1 L yesterday. Tolerating C Pap 10 over 5 very well and appears can wean further. 03/05: continues to diurese well. still tolerates cpap. awaiting placement. Subjective: 03/06: Cr slightly worse. likely at dry weight. still tolerating cpap, weaning down support. not ready for t-piece yet, but some improvement. [id number] review today with [employer]. I do not see any barriers to transfer to LTAC. patient does not have any additional inpatient medical needs. Objective Vital Signs Date Time Temp Pulse Resp B/P Pulse Ox O2 Delivery O2 Flow Rate FiO2 03/06/17 19:54 100 30 03/06/17 18:00 108 03/06/17 16:00 99.5 15 135/90 03/06/17 09:38 T-piece Intake and Output 03/05/17 03/05/17 03/06/17 08:00 16:00 00:00 Intake Total 589 ml 1137 ml 803 ml Output Total 2100.0 ml 525 ml 600 ml Balance -1511.0 ml 612 ml 203 ml Result Diagram: 03/06/17 0640 03/06/17 0640 Imaging Last Impressions Chest X-Ray 03/01/17 0000 Signed Impressions: Service Date/Time: February 18:33 - CONCLUSION: Placement of a PICC line otherwise not significantly changed. Cheyanne Reveles MD Neck Magnetic Resonance Angiography 02/19/17 0000 Signed Impressions: Service Date/Time: Sunday, February 19, 2017 09:18 - CONCLUSION: 1. 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 Left vertebral emanates directly from the arch. 2. Otherwise, cervical vessels are all patent with no significant stenosis. Patient is slightly right vertebral dominant distally. Robbie Huggins MD Head Magnetic Resonance Angiography 02/19/17 0000 Signed Impressions: Service Date/Time: Sunday, February 19, 2017 09:18 - CONCLUSION: 1. 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 Intracranial vessels are otherwise patent. 2. No aneurysmal disease. 3. Anatomic variant of the [place] as above. Patient is right vertebral dominant. Robbie Huggins MD Chest CT 02/16/17 0000 Signed Impressions: Service Date/Time: Thursday, February 16, 2017 13:26 - CONCLUSION: 1. Moderate to large right and small left pleural effusion with associated compressive atelectasis. There additionally is airspace consolidation in the right lower lobe. 2. Small pericardial effusion. 3. There are 2 nodules in the right upper lobe measuring 5 mm and 10 mm. Suggest attention to these at followup imaging. Tra Ma MD Brain MRI 02/16/17 0000 Signed Impressions: Service Date/Time: Thursday, February 16, 2017 13:44 - CONCLUSION: Atrophy and extensive white matter disease as well as micro-bleeds the route the cerebral hemispheres and cerebellum. Punctate foci of acute infarction are suspected within the bilateral frontal white matter as described above. Scott Garcia MD Abdomen/Pelvis CT 02/16/17 0000 Signed Impressions: Service Date/Time: Thursday, February 16, 2017 13:26 - CONCLUSION: 1. Diffuse body wall edema, bilateral effusions, pericardial effusion and lower lobe atelectasis and consolidation. 2. Atherosclerosis. Scott Garcia MD Abdomen X-Ray 02/15/17 0000 Signed Impressions: Service Date/Time: February 11:42 - CONCLUSION: Nonspecific abdomen appearance. Tra Garibay MD Head CT 02/07/171946 Signed Impressions: Service Date/Time: Tuesday, February 07, 2017 20:03 - CONCLUSION: No acute intracranial injury Tra Garibay MD Objective Remarks GENERAL: 86-year-old [place] male, currently on ventilator via tracheostomy SKIN: Warm and dry. No rash HEAD: Atraumatic. Normocephalic. EYES: Pupils equal and round about 3-4 mm bilaterally and reactive. No scleral icterus. No injection or drainage. ENT: No nasal bleeding or discharge. Mucous membranes pink and moist. Oropharynx without erythema. Tracheostomy site is clean dry and intact with no drainage NECK: Trachea midline. Minimal JVD. CARDIOVASCULAR: RRR. RESPIRATORY: Few crackles in bases bilaterally. No wheeze GASTROINTESTINAL: Abdomen slightly protuberant . Nontender. PEG tube site is clean dry and intact. Tolerating tube feeds : Large amount of scrotal edema. MUSCULOSKELETAL: Extremities with 1-2+ upper and lower extremity pitting edema. No obvious deformities. NEUROLOGICAL: Some facial grimacing. Withdraws all extremities. 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 Seroquel 50 q8. breakthrough haldol 5mg iv q4h prn. CT head 02/07 negative for acute disease MRI brain 02/16 revealed increased fluid in the bilateral centrum semi-ovale and PV WM, remote basal ganglia infarcts bilaterally and PV WM. Punctuate micro- bleeds throughout. MRA brain 02/19 revealed left P2 segment HAND RUG BRAIDER high-grade stenosis MRI neck - 02/19 - Anatomical Variant Cir., [place]. Left vertebral takes off from aortic arch. Neurology consult Dr. Avalos appreciated. Noted echo 02/12 no vegetations. 02/19 revealed 2 x 4 mm mitral valve leaflet and tricuspid valve lateral leaflet likely vegetation. - See infectious disease Not a anticoagulation candidate per neurology due to micro-hemorrhages. Currently on aspirin 81 mg daily EEG 02/16 reveals moderate to severe encephalopathy. No epileptiform activity. Respiratory: Acute hypoxic respiratory failure Aspiration pneumonitis Jfpqw-[id number] aspiration Mod to large R effusion/small left pleural effusion Right upper lobe pulmonary nodules 5 and 10 mm. Recommend follow up CT in 3-6 months [facility] 16/550/1/530. Tolerating CPAP 10/5 with RSBI high 30s to 40s. continue to wean as tolerated. tolerated short amount of 5/5/40% today. rest on rate overnight. -- vent bundle Bronchodilator therapy every 6 hours with albuterol every 2 hours for breakthrough -- HOB at 30 degrees -- wean fiO2 for goal spo2 > 90% CT chest 02/16 revealed moderate to large right pleural effusion and atelectasis/ small left pleural effusion. Status post placement of pigtail catheter right effusion 02/17. Removed 02/28 Tracheostomy 02/[address] Zurita, Cardiovascular: Atrial Fibrillation with Rapid Ventricular Response- resolved. Sinus tachycardia- resolved. Distributive shock-resolved Acute systolic heart failure Small pericardial effusion Echocardiogram 02/12 revealed EF 30-35%. Moderate TR. MARIA 53 mmHg. revealed EF 35%. Hypokinesis global. Small Mobile densities tricuspid and mitral valve ? vegetation question right MARIA 52 mmHg. -- Off Cardizem drip for HR control Home medications: metoprolol 50 mg daily, losartan 100 mg daily and hydralazine 50 mg twice a day currently on hold. Hypertensive, tachycardic. metop 75mg po bid. Hydralazine 25mg 3 times a day Renal: Hypophosphatemia Acute Kidney Injury secondary to ATN secondary to hypoperfusion Zimmerman to monitor accurate UOP on patient who is critically ill on diuretics. Creatinine stabilized around 1.3-1.5. Nephrology signed off. appears to be at dry weight. will hold diuretics today. On free water 100 ml q8 Replace phos per ICU electrolyte replacement protocol. FEN/GI: Acute protein calorie malnutrition- severe C.Difficile Colitis Diarrhea Acute on chronic Aspiration Constipation TF with Jevity 1.5 goal 60 cc an hour resumed 02/27. Colace twice a day/Senokot twice a day. Miralax daily is being held. CT abdomen/pelvis revealed pericardial effusion, bilateral pleural effusions. Significant edema Repeat CT abdomen/pelvis with distended abdomen. Revealed right L1/left L3 transverse process fracture. Anasarca. PEG tube by Dr. Cox Heme/ID: C. 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 Garcia following ABX per ID Completed 14 day course of flagyl 02/23 for aspiration and C diff. 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 Anticipated complete date March 20. Pertinent cultures 02/07 - blood cultures 2 - no growth 02/08 - stool -- C. difficile positive 02/09 - blood cultures 2 - no growth 02/12 - urine - no growth 02/13 - sputum - no growth 02/15 - blood cultures 2 - no growth 02/18 - urine - no growth 02/21 - blood no growth to date Endocrine: Hyperglycemia of critical illness (resolved) HAs not required sliding scale in many days. Tolerating tube feeds. D/c insulin . Prophylaxis: SCDs, SQH held with micro-hemorrhages and concern for septic emboli and risk of hemorrhage. Discussed with Dr. Avalos, neurology on 03/03 and he recommends continue to hold subcut heparin until after completed full course of Abx due to concern for endocarditis. Protonix for GI prophylaxis Geraldine Morgan [phone] is health care proxy. Daughter in charge of finances. Wish to have aggressive care. Dr. Spangler also discussed with her , and she states she is hopeful for a miracle. Level 2 Fantasma Demarco MD March 06, 2017 20:39
[2017-03-06] MEDS: hydrALAZINE HCL 20 MG/ML VIAL IV PUSH PRN (20:54)
[2017-03-07] VITALS (18 sets, daily range): BP systolic 110–169; BP diastolic 66–92; PULSE 66–120; RESP 16–28; TEMP 98.2–99.7; O2SAT 95–100
[2017-03-07] MEDS: FREE WATER G-TUBE SCH ×3 (00:22→15:51)
[2017-03-07] MEDS: oxyCODONE HCL ORAL CONC 20 MG/ML SYRINGE PO SCH ×6 (00:22→21:11)
[2017-03-07] MEDS: CEFEPIME INJ 2,000 MG in SODIUM CHLORIDE 0.9% INJ 100 ML IV SCH ×2 (02:48→15:51)
[2017-03-07] MEDS: hydrALAZINE HCL 20 MG/ML VIAL IV PUSH PRN (02:49)
[2017-03-07 03:25] LABS: HEMATOCRIT 24.4 % (39.0-51.0); MEAN CELL VOLUME 88.3 FL (80.0-100.0); MEAN CORPUSCULAR HEMOGLOBIN 30.6 PG (27.0-34.0); MEAN CORPUSCULAR HGB CONC 34.6 % (32.0-36.0); PLATELET COUNT 316 TH/MM3 (150-450); RED BLOOD COUNT 2.77 MIL/MM3 (4.50-5.90); RED CELL DISTRIBUTION WIDTH 15.5 % (11.6-17.2); REVIEW FLAG FINAL; WHITE BLOOD COUNT 9.6 TH/MM3 (4.0-11.0)
[2017-03-07 03:26] LABS: BICARBONATE 28.6 MEQ/L (21.0-32.0); POTASSIUM 4.4 MEQ/L (3.5-5.1)
[2017-03-07] MEDS: hydrALAZINE HCL 25 MG TAB PO SCH ×3 (06:15→21:13)
[2017-03-07] MEDS: QUEtiapine FUMARATE 25 MG TAB PO SCH ×3 (06:15→21:10)
[2017-03-07] MEDS: METOCLOPRAMIDE HCL 10 MG/2 ML VIAL IV PUSH SCH ×3 (06:15→21:10)
[2017-03-07] MEDS: ARTIFICIAL TEARS OPTH SOLN 15 ML BTL EACH EYE SCH ×3 (06:16→21:11)
[2017-03-07] MEDS: SODIUM CHLORIDE 0.9% FLUSH 10 ML FLUSH IV FLUSH SCH (09:00)
[2017-03-07] MEDS: METOPROLOL TARTRATE 50 MG TAB PO SCH ×2 (09:00→21:10)
[2017-03-07] MEDS: ASPIRIN 81 MG CHEW TAB CHEW SCH (09:00)
[2017-03-07] MEDS: BACITRACIN TOP OINT 15 GM TUBE TOPICAL SCH ×2 (09:00→21:12)
[2017-03-07] MEDS: SENNOSIDES SYRUP 8.8 MG/5 ML CUP PO SCH ×2 (10:13→21:10)
[2017-03-07] MEDS: DOCUSATE SODIUM 100 MG/10 ML UDC PO SCH ×2 (10:13→21:10)
[2017-03-07] MEDS: LACTOBACILLUS ACIDOPHILUS TAB PO SCH ×3 (10:13→17:48)
[2017-03-07] MEDS: POLYETHYLENE GLYCOL 17 GM PKG PO SCH (10:13)
[2017-03-07] MEDS: CHLORHEXIDINE 0.12% (ORAL KIT) 15 ML CUP MT SCH ×2 (10:31→21:11)
[2017-03-07] MEDS: COLLAGENASE OINT 30 GM TUBE TOPICAL SCH (10:33)
--- NOTE | 2017-03-07 15:00 | HHI.IDPN ---
Subjective Subjective Remarks Notes reviewed Temps ok On CPAP all night, now on T-piece D/W RN S/P trach 02/23 S/P PEG 02/26 BP ok, not on pressors is an 86 y/o AAM ([facility] by ) with Dementia who presented with worsening mentation and diagnosed with Pneumonia and Cdiff positive diarrhea. PM records from 2006 indicate no allergies no surgeries. ID following for PNA and Cdiff present on admission. Antibiotics Vancomycin Cefepime Lines Line sites with no evidence of infection Past Medical History Dementia. Allergies: Coded Allergies: No Known Allergies (Verified , 11/22/06) UNOBTAINABLE (Unverified , 02/09/17) Objective . Vital Signs Date Time Temp Pulse Resp B/P Pulse Ox O2 Delivery O2 Flow Rate FiO2 03/07/17 12:00 98.2 98 16 110/69 96 03/07/17 12:00 119 03/07/17 12:00 28 03/07/17 12:00 119 03/07/17 10:00 119 03/07/17 09:33 100 T-piece 5.00 28 03/07/17 09:24 100 30 03/07/17 08:00 99.0 66 16 116/66 95 03/07/17 08:00 28 03/07/17 08:00 119 03/07/17 06:00 92 03/07/17 04:16 100 30 03/07/17 04:00 30 03/07/17 04:00 98.5 118 28 169/86 100 03/07/17 04:00 92 03/07/17 03:56 28 03/07/17 02:00 101 03/07/17 00:22 100 30 03/07/17 00:00 99.7 92 20 143/69 100 03/07/17 00:00 30 03/07/17 00:00 92 03/06/17 22:00 92 03/06/17 20:00 118 03/06/17 20:00 98.8 118 20 175/89 100 03/06/17 20:00 30 03/06/17 19:54 100 30 03/06/17 18:50 100 30 03/06/17 18:00 108 03/06/17 16:00 111 03/06/17 16:00 99.5 101 15 135/90 100 03/06/17 16:00 30 03/06/17 03/06/17 03/07/17 15:00 23:00 07:00 Intake Total 723 ml 1307 ml 711 ml Output Total 0 ml 1040.0 ml 525 ml Balance 723 ml 267.0 ml 186 ml IV Total 288 ml 528 ml 180 ml Tube Feeding 275 ml 719 ml 361 ml Tube Irrigant 60 ml Other 160 ml 60 ml 110 ml Output Urine Total 1040 ml 525 ml Tube Feeding Residual Discard 0 ml 0 ml # Bowel Movements 0 0 0 . Laboratory Tests Test 03/06/17 03/07/17 06:40 03:00 White Blood Count 9.3 TH/MM3 9.6 TH/MM3 Red Blood Count 2.84 MIL/MM3 2.77 MIL/MM3 Hemoglobin 8.8 GM/DL 8.5 GM/DL Hematocrit 25.1 % 24.4 % Mean Corpuscular Volume 88.2 FL 88.3 FL Mean Corpuscular Hemoglobin 31.0 PG 30.6 PG Mean Corpuscular Hemoglobin 35.2 % 34.6 % Concent Red Cell Distribution Width 15.3 % 15.5 % Platelet Count 289 TH/MM3 316 TH/MM3 Mean Platelet Volume 9.0 FL 9.5 FL Laboratory Tests Test 03/06/17 03/07/17 06:40 03:00 Sodium Level 137 MEQ/L 137 MEQ/L Potassium Level 4.4 MEQ/L 4.4 MEQ/L Chloride Level 105 MEQ/L 103 MEQ/L Carbon Dioxide Level 26.2 MEQ/L 28.6 MEQ/L Anion Gap 6 MEQ/L 5 MEQ/L Blood Urea Nitrogen 26 MG/DL 27 MG/DL Creatinine 1.63 MG/DL 1.62 MG/DL Estimat Glomerular Filtration 49 ML/MIN 49 ML/MIN Rate Random Glucose 134 MG/DL 120 MG/DL Calcium Level 8.2 MG/DL 7.8 MG/DL Imaging Chest X-Ray 02/28/17 0600 Signed Impressions: Service Date/Time: Tuesday, February 28, 2017 02:22 - CONCLUSION: 1. The small right-sided chest tube is no longer in the right pleural space. The tip is in the subcutaneous soft tissues along the right chest wall. Recommend complete removal. 2. No evidence of pneumothorax. 3. Bibasilar pulmonary infiltrates with effusions. Stevie Fleming MD Chest X-Ray 02/23/17 0600 Signed Impressions: Service Date/Time: Thursday, February 23, 2017 04:01 - CONCLUSION: Unchanged bibasilar infiltrates. Kaiser Valiente Jr., MD Chest X-Ray 02/23/17 0000 Signed Impressions: Service Date/Time: Thursday, February 23, 2017 11:49 - CONCLUSION: Bibasilar opacities are present may be due to a combination of consolidation and or pleural effusion. Cheyanne Reveles MD Chest X-Ray 02/22/17 0600 Signed Impressions: Service Date/Time: February 03:16 - CONCLUSION: Continue consolidation both lung bases right worse the left. Upper lungs are clear. ET tube in good position. Sanjay Watts MD Neck Magnetic Resonance Angiography 02/19/17 0000 Signed Impressions: Service Date/Time: Sunday, February 19, 2017 09:18 - CONCLUSION: 1. 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 Left vertebral emanates directly from the arch. 2. Otherwise, cervical vessels are all patent with no significant stenosis. Patient is slightly right vertebral dominant distally. Robbie Huggins MD Head Magnetic Resonance Angiography 02/19/17 0000 Signed Impressions: Service Date/Time: Sunday, February 19, 2017 09:18 - CONCLUSION: 1. 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 Intracranial vessels are otherwise patent. 2. No aneurysmal disease. 3. Anatomic variant of the [place] as above. Patient is right vertebral dominant. Robbie Huggins MD Chest X-Ray 02/19/17 0000 Signed Impressions: Service Date/Time: Sunday, February 19, 2017 11:17 - CONCLUSION: No appreciable change in bilateral pleural effusions bibasilar consolidation and/or compressive collapse and probable mild case of pulmonary edema. Cheyanne Reveles MD Physical Exam GENERAL: On T-piece, tachypneic, but with good sats, no interaction SKIN: Warm and dry. No generalized rash. HEENT: [place] conjunctivae. No scleral icterus. Moist mucosa NECK: Trach in place, site ok, no blood. Supple. Has swelling on L side of neck, ?due to position, not red CARDIOVASCULAR: Regular S1S2 RESPIRATORY: Decreased BS rikki, with scattered wheezing GASTROINTESTINAL: Abdomen distended, bowel sounds are present, hypoactive. PEG site ok. Some grimacing with palpation MUSCULOSKELETAL: Extremities without clubbing, cyanosis, or pedal edema. Hands edematous : Has very swollen scrotum, [place] with small amount of sediment NEUROLOGICAL: Sedated PSYCH: Unable to assess LINE: PIV with no evidence of infection Assessment & Plan Remarks IMPRESSION Respiratory failure,S/P trach - S/P RX Aspiration, S/P Rx MV and TV vegetation on recent echo, all BC have been negative - ?GPC, ?GNR - initial echo negative, and second echo that showed the vegetation Has R effusion, has CT in place Pneumonia present on admission: likely aspiration in setting of dementia. S/P Rx C diff positive, clinically resolved Ongoing aspiration. Dementia Acute metabolic encephalopathy Fevers: Concomitant antibiotics for Pneumonia ppting Cdiff, ongoing aspiration - temps better. Renal insufficiency L neck swelling, ?positional RECOMMENDATION Continue IV Vanco - Pharm doing dosing - aim for trough 15-20 Continue Cefepime 4 week of Abx would be till March 20 - end dates ordered in [employer] Labs at least once a week while on IV Abx: CBC, creat, LFT Monitor temps Monitor progress Monitor swelling L neck Trying to get LTAC Weaning per CCM D/W Tricia Titus MD March 07, 2017 15:00
--- NOTE | 2017-03-07 18:23 | HHI.PR ---
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 Diagnosis/Plan: Subjective Subjective Comments No acute events reported Active Medications Current Medications Medications (Trade) Dose Ordered Sig/Connor Route Start Time Stop Time Status Last Admin (Zofran Inj) 4 mg Q8H PRN IV PUSH 02/07/17 21:45 (Tylenol) 500 mg Q4H PRN PO 02/08/17 13:15 03/02/17 08:01 (Lactinex) 1 tab TID PO 02/09/17 13:00 03/07/17 17:48 (Peridex 0.12% Liq) 15 ml BID@08,20 MT 02/12/17 20:00 03/07/17 10:31 (D50w (Vial) Inj) 25 ml UNSCH PRN IV PUSH 02/12/17 14:30 02/24/17 18:16 (Aspirin Chew) 81 mg DAILY CHEW 02/13/17 09:00 03/07/17 09:00 Miscellaneous Information Patient in critical care unit? Ass... Q361D .XX 02/12/17 22:00 (Senna Liq) 8.8 mg BID PO 02/17/17 21:00 03/07/17 10:13 (Glycerin Adult Supp) 2 gm BID PRN RECTAL 02/17/17 10:15 (Tears Naturale Opth Soln) 1 drop Q8HR EACH EYE 02/17/17 14:00 03/07/17 06:16 Metoclopramide HCl 5 mg 5 mg Q8HR IV PUSH 02/19/17 14:00 03/07/17 13:00 (Vancomycin Consult Pharmacy) 0 ml @ 0 mls/hr UNSCH OTHER 02/21/17 13:15 Docusate Sodium 100 mg 100 mg BID PO 02/22/17 09:00 03/07/17 10:13 (Maxipime Inj/NS Inj) 100 ml @ 200 mls/hr Q12H IV 02/23/17 16:00 03/20/17 23:00 03/07/17 15:51 (Trandate Inj) 10 mg Q1H PRN IV PUSH 02/24/17 08:00 03/02/17 08:01 (Apresoline Inj) 10 mg Q1H PRN IV PUSH 02/24/17 08:00 03/07/17 02:49 Nitroglycerin 2 inch 2 inch Q6H PRN TOPICAL 02/24/17 08:00 (Vancomycin Inj/ NS 500 ml Inj) 515 ml @ 250 mls/hr Q24H IV 02/28/17 12:00 03/20/17 23:00 Hold 03/05/17 12:17 (Santyl Oint) 1 applic DAILY TOPICAL 03/01/17 09:00 03/07/17 10:33 (Baciguent Oint) 1 applic Q12HR TOPICAL 02/28/17 21:00 03/06/17 20:59 (Miralax) 17 gm DAILY PO 03/01/17 09:00 03/07/17 10:13 (NS Flush) See Protocol DAILY IV FLUSH 03/02/17 09:00 03/05/17 10:21 (NS Flush) See Protocol UNSCH PRN IV FLUSH 03/01/17 19:15 03/03/17 06:08 (Heparin Central Flush) See Protocol DAILY IV FLUSH 03/02/17 09:00 (Heparin Central Flush) See Protocol UNSCH PRN IV FLUSH 03/01/17 19:15 (NS Flush) UNSCH PRN IV FLUSH 03/01/17 19:15 03/02/17 08:02 (Roxicodone Intensol Liq) 10 mg Q4HR PO 03/03/17 00:00 03/07/17 15:51 (SEROquel) 50 mg Q8HR PO 03/02/17 22:00 03/07/17 12:59 (Free Water) 110 ml Q8H G-TUBE 03/03/17 02:00 03/07/17 15:51 (Apresoline) 25 mg Q8HR PO 03/02/17 22:00 03/07/17 12:59 Fentanyl Citrate 50 mcg 50 mcg Q2H PRN IV PUSH 03/02/17 21:00 Potassium Chloride 100 ml @ 50 mls/hr Q2H PRN IV 03/03/17 14:30 (KCl 20 Meq Premix Inj) 100 ml @ 50 mls/hr Q2H PRN IV 03/03/17 14:30 Potassium Bicarb/ Potassium Chloride 50 meq 50 meq UNSCH PRN PO 03/03/17 14:30 Potassium Chloride 100 ml @ 25 mls/hr UNSCH PRN IV 03/03/17 14:30 Potassium Chloride 100 ml @ 50 mls/hr Q2H PRN IV 03/03/17 14:30 (Magnesium Sulfate Inj/NS Inj) 100 ml @ 50 mls/hr UNSCH PRN IV 03/03/17 14:30 Magnesium Oxide 800 mg 800 mg UNSCH PRN PO 03/03/17 14:30 (Magnesium Sulfate Inj/NS Inj) 100 ml @ 50 mls/hr UNSCH PRN IV 03/03/17 14:30 Potassium Phosphate 2000 mg 2,000 mg Q4H PRN PO 03/03/17 14:30 (Sodium Phosphate Inj/NS 250 ml Inj) 250 ml @ 42 mls/hr UNSCH PRN IV 03/03/17 14:30 03/03/17 17:44 (K-Phos) 2,000 mg UNSCH PRN PO/TUBE 03/03/17 14:30 (Lopressor) 75 mg Q12HR PO 03/04/17 21:00 03/07/17 09:00 (Haldol Inj) 5 mg Q4H PRN IV 03/05/17 19:00 Allergies Allergies Coded Allergies No Known Allergies (Verified11/22/06) UNOBTAINABLE (Unverified02/09/17) Exam I&O / VS 03/06/17 03/06/17 03/07/17 15:00 23:00 07:00 Intake Total 723 ml 1307 ml 711 ml Output Total 0 ml 1040.0 ml 525 ml Balance 723 ml 267.0 ml 186 ml IV Total 288 ml 528 ml 180 ml Tube Feeding 275 ml 719 ml 361 ml Tube Irrigant 60 ml Other 160 ml 60 ml 110 ml Output Urine Total 1040 ml 525 ml Tube Feeding Residual Discard 0 ml 0 ml # Bowel Movements 0 0 0 Vital Signs Date Time Temp Pulse Resp B/P Pulse Ox O2 Delivery O2 Flow Rate FiO2 03/07/17 18:00 114 03/07/17 17:24 100 30 03/07/17 16:00 98.8 120 26 160/84 100 03/07/17 16:00 28 03/07/17 16:00 114 03/07/17 14:00 119 03/07/17 14:00 22 03/07/17 12:00 98.2 98 16 110/69 96 03/07/17 12:00 119 03/07/17 12:00 28 03/07/17 12:00 119 03/07/17 10:00 119 03/07/17 09:33 100 T-piece 5.00 28 03/07/17 09:24 100 30 03/07/17 08:00 99.0 66 16 116/66 95 03/07/17 08:00 28 03/07/17 08:00 119 03/07/17 06:00 92 03/07/17 04:16 100 30 03/07/17 04:00 30 03/07/17 04:00 98.5 118 28 169/86 100 03/07/17 04:00 92 03/07/17 02:00 101 03/07/17 00:22 100 30 03/07/17 00:00 99.7 92 20 143/69 100 03/07/17 00:00 30 03/07/17 00:00 92 03/06/17 22:00 92 03/06/17 20:00 118 03/06/17 20:00 98.8 118 20 175/89 100 03/06/17 20:00 30 03/06/17 19:54 100 30 03/06/17 18:50 100 30 Exam Comments very lethargic does not follow commands Pupils equal Motor--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 community resource officer weakly bilaterally, no other spontaneous movement Objective Micro and Labs Laboratory Tests Test 03/07/17 03:00 White Blood Count 9.6 Red Blood Count 2.77 Hemoglobin 8.5 Hematocrit 24.4 Mean Corpuscular Volume 88.3 Mean Corpuscular Hemoglobin 30.6 Mean Corpuscular Hemoglobin 34.6 Concent Red Cell Distribution Width 15.5 Platelet Count 316 Mean Platelet Volume 9.5 Sodium Level 137 Potassium Level 4.4 Chloride Level 103 Carbon Dioxide Level 28.6 Anion Gap 5 Blood Urea Nitrogen 27 Creatinine 1.62 Estimat Glomerular Filtration 49 Rate Random Glucose 120 Calcium Level 7.8 Darius Avalos PhD March 07, 2017 18:23
--- NOTE | 2017-03-07 19:48 | HHI.CCPN ---
Subjective Remarks/Hospital Course This is a 86yM who presented from home with altered mental status and end-stage dementia. His hospital course has been complicated by C. Diff and pneumonia for which he is on appropriate therapy. He has been noted to have [id number] aspiration during this hospital stay and has been NPO. Today, a rapid response was called for acute respiratory distress and hypoxia. I was called by Dr. Velez at the rapid response. He believe this is an aspiration event given the patient's clinical history. I immediately went and evaluated the patient. He is labored and in distress. his spo2 is 93% on non-rebreather. He is also in what appears to be new-onset atrial fibrillation with RVR and a HR 160s. Brief review of the pertinent laboratory data demonstrate worsening acute kidney injury, worsening anion-gap metabolic acidosis. Critical care medicine is consulted to evaluate and manage his severe respiratory distress and afib RVR. Unfortunately, the patient is obtunded and cannot provide any additional history. 02/13: no clinical improvements. remains in multiorgan system failure. diltiazem drip weaned to off, but remains on phenylephrine. talked with nephrology who feel clinically, despite some element of JVD, that patient is clinically intravascularly hypovolemic and they recommend gentle ivf hydration, which I am ok with as a trial. mental status poor. kidney injury persists. palliative involved. apparently daughter is not health care surrogate legally, but has been making decisions in the outpatient setting. multiple disagreements within the family. appreciate palliative involvement. 02/14: Renal function continues to worsen and today 57/4.1. D/w Nephrology. If family wants everything done, will need to proceed with HD. Tmax 101.1. ID following 02/15: Remains critically ill, did not tolerate brief CPAP trial. CXR shows mod to large R pl effusion. MAXIMUM TEMPERATURE 100.5. Creatinine slightly improved with urine output more than 1.4 L 02/16: Patient remains intubated, lightly sedated.. Did not tolerate C-peptide yesterday due to tachypnea. CT of the chest shows moderately large right effusion plan for thoracentesis 02/17: Tmax 100.7. No bowel movement since 02/12. On sedation vacation withdrawals but does not follow commands. Tolerating tube feeds at goal. 02/18: Afebrile. One bowel movement overnight. Tolerating tube feeding. Placement of 10 German pigtail catheter with 600 cc likely transudative effusion. Tachycardic this AM. 02/19: Currently down for CT abdomen/pelvis with distended abdomen. Also MRA brain/neck with acute/subacute bifrontal CVA. Neurology consult pending. Will likely need tracheostomy. 02/20: Noted emesis last night [address] abdomen/pelvis unremarkable. Moderate gastric output. Started on Reglan. Positive BM. 02/21: Afebrile. Tolerating trickle feeds. One bowel movement. Noted echocardiogram report yesterday. Discussed with Dr. Garcia - blood cultures 2, vancomycin. Reassess in a.m.. Attempting to obtain consent for tracheostomy with . 02/22: Neuro exam unchanged. Mental status will not permit extubation. UO adequate, creat improving. Tracheostomy tomorrow 02/23: Creat continues to improve, no change in mentation. Trach with Parminder today, GI consulted for PEG placement. 02/24: Afebrile. Status post tracheostomy by Dr. Zurita yesterday. Unable to replace gastric tube secondary to bleeding. Plan for PEG on Sunday. 02/25: Currently afebrile. Tracheostomy without bleeding. Hypertensive requiring when necessary's. Plan for PEG Monday 02/26: Afebrile. Check yesterday was unpacked last night. Repacked today. On sedation. Plan for PEG today. 02/27: Afebrile. Chest without bleeding. Continues to be on sedation due to agitation. PEG tube yesterday without competition. Plan remove chest tube today. 02/28: Resting currently in bed. No change in neurological status. Tracheostomy without bleeding. No acute issues. 03/01: Afebrile. More tremulous this a.m. upon removal of fentanyl drip. Currently on PSV trial. Positive BM 2. Tolerating tube feeds at 35 cc an hour. Neurological status unchanged. 03/02: Tmax 100.7. Currently 98.9. One bowel movement yesterday. Tolerating tube feeds at 40 cc an hour. Becomes agitated with removal of fentanyl drip. 03/03 WBC 15.3. Afebrile. On vanc and cefepime per ID. Tolerating CPAP 08/09 with RSBI 40s 03/04 Diuresed net -1.1 L yesterday. Tolerating C Pap 10 over 5 very well and appears can wean further. 03/05: continues to diurese well. still tolerates cpap. awaiting placement. 03/06: Cr slightly worse. likely at dry weight. still tolerating cpap, weaning down support. not ready for t-piece yet, but some improvement. [id number] review today with [employer]. I do not see any barriers to transfer to LTAC. patient does not have any additional inpatient medical needs. Subjective: 03/07: Afebrile. On PSV trials today. Tolerating tube feeding. Positive bowel movement. Neurological status unchanged. Objective Vital Signs Date Time Temp Pulse Resp B/P Pulse Ox O2 Delivery O2 Flow Rate FiO2 03/07/17 19:43 100 35 03/07/17 18:00 114 03/07/17 16:00 98.8 26 160/84 03/07/17 09:33 T-piece 5.00 Intake and Output 03/06/17 03/06/17 03/07/17 08:00 16:00 00:00 Intake Total 723 ml 723 ml 1307 ml Output Total 1200.0 ml 1040.0 ml Balance -477.0 ml 723 ml 267.0 ml Result Diagram: 03/07/17 0300 03/07/17 0300 Imaging Last Impressions Chest X-Ray 03/03/17 0600 Signed Impressions: Service Date/Time: Friday, March 03, 2017 05:06 - CONCLUSION: No significant change. Tra Carroll MD Neck Magnetic Resonance Angiography 02/19/17 0000 Signed Impressions: Service Date/Time: Sunday, February 19, 2017 09:18 - CONCLUSION: 1. 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 Left vertebral emanates directly from the arch. 2. Otherwise, cervical vessels are all patent with no significant stenosis. Patient is slightly right vertebral dominant distally. Robbie Huggins MD Head Magnetic Resonance Angiography 02/19/17 0000 Signed Impressions: Service Date/Time: Sunday, February 19, 2017 09:18 - CONCLUSION: 1. 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 Intracranial vessels are otherwise patent. 2. No aneurysmal disease. 3. Anatomic variant of the augustine of [place] as above. Patient is right vertebral dominant. Robbie Huggins MD Chest CT 02/16/17 0000 Signed Impressions: Service Date/Time: Thursday, February 16, 2017 13:26 - CONCLUSION: 1. Moderate to large right and small left pleural effusion with associated compressive atelectasis. There additionally is airspace consolidation in the right lower lobe. 2. Small pericardial effusion. 3. There are 2 nodules in the right upper lobe measuring 5 mm and 10 mm. Suggest attention to these at followup imaging. Tra Ma MD Brain MRI 02/16/17 Signed Impressions: Service Date/Time: Thursday, February 16, 2017 13:44 - CONCLUSION: Atrophy and extensive white matter disease as well as micro-bleeds the route the cerebral hemispheres and cerebellum. Punctate foci of acute infarction are suspected within the bilateral frontal white matter as described above. Scott Garcia MD Abdomen/Pelvis CT 02/16/17 0000 Signed Impressions: Service Date/Time: Thursday, February 16, 2017 13:26 - CONCLUSION: 1. Diffuse body wall edema, bilateral effusions, pericardial effusion and lower lobe atelectasis and consolidation. 2. Atherosclerosis. Scott Garcia MD Abdomen X-Ray 02/15/17 Signed Impressions: Service Date/Time: February 11:42 - CONCLUSION: Nonspecific abdomen appearance. Tra Garibay MD Head CT 02/07/171946 Signed Impressions: Service Date/Time: Tuesday, February 07, 2017 20:03 - CONCLUSION: No acute intracranial injury Tra Garibay MD Objective Remarks GENERAL: 86-year-old male, currently on ventilator via tracheostomy in no acute distress SKIN: Warm and dry. No rash HEAD: Atraumatic. Normocephalic. EYES: Pupils equal and round about 3-4 mm bilaterally and reactive. No scleral icterus. No injection or drainage. ENT: No nasal bleeding or discharge. Mucous membranes pink and moist. Oropharynx without erythema. Tracheostomy site is clean dry and intact with no drainage NECK: Trachea midline. Minimal JVD. CARDIOVASCULAR: RRR. S1, S2. No S4. Faint 1 out of 6 diastolic murmur appreciated RESPIRATORY: Few crackles in bases bilaterally and symmetrical. No wheeze GASTROINTESTINAL: Abdomen slightly protuberant . Nontender. PEG tube site is clean dry and intact. Tolerating tube feeds : Positive scrotal edema. MUSCULOSKELETAL: Extremities with 1-2+ upper and lower extremity pitting edema. No obvious deformities. NEUROLOGICAL: Some facial grimacing. Withdraws all extremities. 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 Seroquel 50 milligrams by mouth q8. CT head 02/07 negative for acute disease MRI brain 02/16 revealed increased signal intensity in the bilateral centrum semi -ovale and periventricular white matter, remote basal ganglia infarcts bilaterally and periventricular punctuate blooming micro-bleeds throughout. 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 Left vertebral takes off from aortic arch Neurology consult Dr. Avalos appreciated. Noted echo 02/12 no vegetations. 02/19 revealed 2 x 4 mm mitral valve leaflet and tricuspid valve lateral leaflet likely vegetation. Not a anticoagulation candidate per neurology due to micro-hemorrhages. Recommended repeat MRI in 4-6 weeks resolution of micro-hemorrhages/rule out septic emboli before initiation anticoagulation Continue aspirin 81 mg daily EEG 02/16 reveals moderate to severe encephalopathy. No epileptiform activity. EEG 03/05 - diffuse encephalopathy Respiratory: Acute hypoxic respiratory failure Aspiration pneumonitis [id number] aspiration Mod to large R effusion/small left pleural effusion Right upper lobe pulmonary nodules 5 and 10 mm. Recommend follow up CT in 3-6 months [facility] 16//11/09/29. PSV trial 03/09 @30 percent tolerating throughout the day today -- vent bundle Bronchodilator therapy every 6 hours with albuterol every 2 hours for breakthrough -- HOB at 30 degrees -- wean fiO2 for goal spo2 > 92% CT chest 02/16 revealed moderate to large right pleural effusion and atelectasis/ small left pleural effusion. Status post placement of pigtail catheter right effusion 02/17. Removed 02/28 Tracheostomy 02/[address] Zurita, Cardiovascular: Atrial Fibrillation with Rapid Ventricular Response-early normal sinus rhythm Acute systolic heart failure Small pericardial effusion Echocardiogram 02/12 revealed EF 30-35%. Moderate TR. MARIA 53 mmHg. Echocardiogram 02/19 revealed EF 35%. Hypokinesis global. Small Mobile densities tricuspid and mitral valve ? vegetation question right MARIA 52 mmHg. Home medications: metoprolol 50 mg daily, losartan 100 mg daily and hydralazine 50 mg twice a day currently on hold. Currently metoprolol 50 every 8 hours and hydralazine to 25 every 8 hours Renal: Acute Kidney Injury secondary to ATN Zimmerman to monitor accurate UOP on patient who is critically ill on diuretics. Creatinine stabilized around 1.3-1.6. Nephrology signed off. appears to be at dry weight. will hold diuretics today. On free water 100 ml q8 FEN/GI: Acute protein calorie malnutrition- severe C.Difficile Colitis Diarrhea Acute on chronic Aspiration Constipation TF with Jevity 1.5 goal 60 cc an hour resumed 02/27. Colace twice a day/Senokot twice a day. Miralax daily CT abdomen/pelvis revealed pericardial effusion, bilateral pleural effusions. Significant edema Repeat CT abdomen/pelvis with distended abdomen. Revealed right L1/left L3 transverse process fracture. Anasarca. PEG tube by Dr. Cox Heme/ID: C. 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 Garcia following ABX per ID Completed 14 day course of flagyl 02/23 for aspiration and C diff. 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 Stop date March 20 Pertinent cultures 02/07 - blood cultures 2 - no growth 02/08 - stool -- C. difficile positive 02/09 - blood cultures 2 - no growth 02/12 - urine - no growth 02/13 - sputum - no growth 02/15 - blood cultures 2 - no growth 02/18 - urine - no growth 02/21 - blood no growth to date Endocrine: Hyperglycemia of critical illness (resolved) No sliding-scale ordered currently Prophylaxis: GI Prevacid DVT - SCD/pharmacological prophylaxis contraindicated with microhemorrhages. See neuro Geraldine Morgan [phone] is health care proxy. Daughter in charge of finances. Critical Care: The total critical care time was 35 minutes. Time to perform other separately billable procedures was not included in the critical care time. Gerry Mike MD March 07, 2017 19:48
[2017-03-07] MEDS: RESP: ALBUTEROL 2.5 MG/IPRATROPIUM 0.5 MG NEB (SCH) NEB (21:30)
[2017-03-08] VITALS (25 sets, daily range): BP systolic 111–195; BP diastolic 70–117; PULSE 90–124; RESP 17–25; TEMP 97.8–99.2; O2SAT 98–100
[2017-03-08] MEDS: oxyCODONE HCL ORAL CONC 20 MG/ML SYRINGE PO SCH ×6 (00:26→20:41)
[2017-03-08] MEDS: FREE WATER G-TUBE SCH ×3 (02:00→16:55)
[2017-03-08] MEDS: RESP: ALBUTEROL 2.5 MG/IPRATROPIUM 0.5 MG NEB (SCH) NEB ×4 (05:40→20:46)
[2017-03-08] MEDS: hydrALAZINE HCL 25 MG TAB PO SCH ×3 (05:45→20:43)
[2017-03-08] MEDS: METOPROLOL TARTRATE 50 MG TAB PO SCH ×3 (05:45→20:43)
[2017-03-08] MEDS: CEFEPIME INJ 2,000 MG in SODIUM CHLORIDE 0.9% INJ 100 ML IV SCH ×2 (05:45→16:54)
[2017-03-08] MEDS: QUEtiapine FUMARATE 25 MG TAB PO SCH ×3 (05:45→20:42)
[2017-03-08] MEDS: ARTIFICIAL TEARS OPTH SOLN 15 ML BTL EACH EYE SCH ×3 (05:46→20:45)
[2017-03-08] MEDS: METOCLOPRAMIDE HCL 10 MG/2 ML VIAL IV PUSH SCH ×3 (05:46→20:42)
[2017-03-08 06:12] LABS: AUTOMATED NEUTROPHIL # 6.8 TH/MM3 (1.8-7.7); BASOPHIL # 0.1 TH/MM3 (0-0.2); BASOPHIL % 0.6 % (0.0-2.0); EOSINOPHIL # 0.7 TH/MM3 (0-0.4); EOSINOPHIL % 6.5 % (0.0-4.0); HEMATOCRIT 24.1 % (39.0-51.0); HEMO FLAGS DIFF FINAL; LYMPH % 13.7 % (9.0-44.0); LYMPHOCYTE # 1.4 TH/MM3 (1.0-4.8); MEAN CELL VOLUME 87.7 FL (80.0-100.0); MEAN CORPUSCULAR HEMOGLOBIN 30.5 PG (27.0-34.0); MEAN CORPUSCULAR HGB CONC 34.8 % (32.0-36.0); MONO % 13.3 % (0.0-8.0); NEUT % 65.9 % (16.0-70.0); PLATELET COUNT 342 TH/MM3 (150-450); RED BLOOD COUNT 2.74 MIL/MM3 (4.50-5.90); RED CELL DISTRIBUTION WIDTH 15.4 % (11.6-17.2); WHITE BLOOD COUNT 10.4 TH/MM3 (4.0-11.0)
[2017-03-08 06:33] LABS: ALT (GPT) 37 U/L (12-78); ANION GAP 5 MEQ/L (5-15); AST (GOT) 56 U/L (15-37); BICARBONATE 28.3 MEQ/L (21.0-32.0); BLOOD UREA NITROGEN 30 MG/DL (7-18); CHLORIDE 102 MEQ/L (98-107); GLOMERULAR FILTRATION RATE 47 ML/MIN (>89); MAGNESIUM 2.2 MG/DL (1.5-2.5); POTASSIUM 4.3 MEQ/L (3.5-5.1); SODIUM (NA) 135 MEQ/L (136-145)
[2017-03-08 06:35] LABS: ALKALINE PHOSPHATASE 123 U/L (45-117); TOTAL BILIRUBIN ADULT 0.4 MG/DL (0.2-1.0)
[2017-03-08] MEDS: CHLORHEXIDINE 0.12% (ORAL KIT) 15 ML CUP MT SCH ×2 (08:00→20:00)
[2017-03-08] MEDS: DOCUSATE SODIUM 100 MG/10 ML UDC PO SCH ×2 (08:11→20:46)
[2017-03-08] MEDS: LANSOPRAZOLE SOLUTAB 30 MG TAB NG SCH (08:11)
[2017-03-08] MEDS: ASPIRIN 81 MG CHEW TAB CHEW SCH (08:11)
[2017-03-08] MEDS: SENNOSIDES SYRUP 8.8 MG/5 ML CUP PO SCH ×2 (08:11→20:46)
[2017-03-08] MEDS: LACTOBACILLUS ACIDOPHILUS TAB PO SCH ×3 (08:13→16:54)
[2017-03-08] MEDS: POLYETHYLENE GLYCOL 17 GM PKG PO SCH (08:13)
[2017-03-08] MEDS: SODIUM CHLORIDE 0.9% FLUSH 10 ML FLUSH IV FLUSH SCH (09:00)
--- NOTE | 2017-03-08 10:46 | HHI.IDPN ---
Subjective Subjective Remarks Notes reviewed Temps ok On T-piece, looks tachypneic, has good sats S/P trach 02/23 S/P PEG 02/26 BP ok, not on pressors is an 86 y/o AAM ([facility] by ) with Dementia who presented with worsening mentation and diagnosed with Pneumonia and Cdiff positive diarrhea. PM records from 2006 indicate no allergies no surgeries. ID following for PNA and Cdiff present on admission. Antibiotics Vancomycin Cefepime Lines Line sites with no evidence of infection Past Medical History Dementia. Allergies: Coded Allergies: No Known Allergies (Verified , 11/22/06) UNOBTAINABLE (Unverified , 02/09/17) Objective . Vital Signs Date Time Temp Pulse Resp B/P Pulse Ox O2 Delivery O2 Flow Rate FiO2 03/08/17 09:00 105 20 111/82 100 03/08/17 08:38 98 T-piece 6.00 35 03/08/17 08:00 35 03/08/17 08:00 97.8 99 20 128/70 100 03/08/17 08:00 105 03/08/17 06:23 16 03/08/17 06:00 119 03/08/17 05:00 100 35 03/08/17 04:00 98.9 100 19 146/82 100 03/08/17 04:00 35 03/08/17 04:00 100 03/08/17 02:00 90 03/08/17 01:00 100 35 03/08/17 00:00 95 03/08/17 00:00 98.8 95 21 147/81 100 03/08/17 00:00 35 03/07/17 22:00 97 03/07/17 20:00 99.0 117 16 152/92 100 03/07/17 20:00 117 03/07/17 20:00 35 03/07/17 19:43 100 35 03/07/17 18:00 114 03/07/17 17:24 100 30 03/07/17 16:00 98.8 120 26 160/84 100 03/07/17 16:00 28 03/07/17 16:00 114 03/07/17 14:00 119 03/07/17 12:00 98.2 98 16 110/69 96 03/07/17 12:00 119 03/07/17 12:00 28 03/07/17 12:00 119 03/07/17 03/07/17 03/08/17 15:00 23:00 07:00 Intake Total 765 ml 840 ml 548 ml Output Total 500 ml 750 ml 300 ml Balance 265 ml 90 ml 248 ml Intake Oral 0 ml 0 ml IV Total 78 ml 192 ml 48 ml Tube Feeding 487 ml 448 ml 300 ml Other 200 ml 200 ml 200 ml Output Urine Total 500 ml 750 ml 300 ml # Bowel Movements 1 0 1 . Laboratory Tests Test 03/07/17 03/08/17 03:00 05:30 White Blood Count 9.6 TH/MM3 10.4 TH/MM3 Red Blood Count 2.77 MIL/MM3 2.74 MIL/MM3 Hemoglobin 8.5 GM/DL 8.4 GM/DL Hematocrit 24.4 % 24.1 % Mean Corpuscular Volume 88.3 FL 87.7 FL Mean Corpuscular Hemoglobin 30.6 PG 30.5 PG Mean Corpuscular Hemoglobin 34.6 % 34.8 % Concent Red Cell Distribution Width 15.5 % 15.4 % Platelet Count 316 TH/MM3 342 TH/MM3 Mean Platelet Volume 9.5 FL 9.6 FL Neutrophils (%) (Auto) 65.9 % Lymphocytes (%) (Auto) 13.7 % Monocytes (%) (Auto) 13.3 % Eosinophils (%) (Auto) 6.5 % Basophils (%) (Auto) 0.6 % Neutrophils # (Auto) 6.8 TH/MM3 Lymphocytes # (Auto) 1.4 TH/MM3 Monocytes # (Auto) 1.4 TH/MM3 Eosinophils # (Auto) 0.7 TH/MM3 Basophils # (Auto) 0.1 TH/MM3 CBC Comment DIFF FINAL Differential Comment Laboratory Tests Test 03/07/17 03/08/17 03:00 05:30 Sodium Level 137 MEQ/L 135 MEQ/L Potassium Level 4.4 MEQ/L 4.3 MEQ/L Chloride Level 103 MEQ/L 102 MEQ/L Carbon Dioxide Level 28.6 MEQ/L 28.3 MEQ/L Anion Gap 5 MEQ/L 5 MEQ/L Blood Urea Nitrogen 27 MG/DL 30 MG/DL Creatinine 1.62 MG/DL 1.69 MG/DL Estimat Glomerular Filtration 49 ML/MIN 47 ML/MIN Rate Random Glucose 120 MG/DL 122 MG/DL Calcium Level 7.8 MG/DL 8.2 MG/DL Phosphorus Level 2.0 MG/DL Magnesium Level 2.2 MG/DL Total Bilirubin 0.4 MG/DL Aspartate Amino Transf 56 U/L (AST/SGOT) Alanine Aminotransferase 37 U/L (ALT/SGPT) Alkaline Phosphatase 123 U/L Total Protein 6.9 GM/DL Albumin 1.9 GM/DL Imaging Chest X-Ray 02/28/17599 Signed Impressions: Service Date/Time: Tuesday, February 28, 2017 02:22 - CONCLUSION: 1. The small right-sided chest tube is no longer in the right pleural space. The tip is in the subcutaneous soft tissues along the right chest wall. Recommend complete removal. 2. No evidence of pneumothorax. 3. Bibasilar pulmonary infiltrates with effusions. Stevie Fleming MD Chest X-Ray 02/23/17 06 Signed Impressions: Service Date/Time: Thursday, February 23, 2017 04:01 - CONCLUSION: Unchanged bibasilar infiltrates. Kaiser Valiente Jr., MD Chest X-Ray 02/23/17 0000 Signed Impressions: Service Date/Time: Thursday, February 23, 2017 11:49 - CONCLUSION: Bibasilar opacities are present may be due to a combination of consolidation and or pleural effusion. Cheyanne Reveles MD Chest X-Ray 02/22/17 06 Signed Impressions: Service Date/Time: February 03:16 - CONCLUSION: Continue consolidation both lung bases right worse the left. Upper lungs are clear. ET tube in good position. Sanjay Watts MD Neck Magnetic Resonance Angiography 02/19/17 0000 Signed Impressions: Service Date/Time: Sunday, February 19, 2017 09:18 - CONCLUSION: 1. 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 Left vertebral emanates directly from the arch. 2. Otherwise, cervical vessels are all patent with no significant stenosis. Patient is slightly right vertebral dominant distally. Robbie Huggins MD Head Magnetic Resonance Angiography 02/19/17 0000 Signed Impressions: Service Date/Time: Sunday, February 19, 2017 09:18 - CONCLUSION: 1. 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 Intracranial vessels are otherwise patent. 2. No aneurysmal disease. 3. Anatomic variant of the eek of [place] as above. Patient is right vertebral dominant. Robbie Huggins MD Chest X-Ray 02/19/17 0000 Signed Impressions: Service Date/Time: Sunday, February 19, 2017 11:17 - CONCLUSION: No appreciable change in bilateral pleural effusions bibasilar consolidation and/or compressive collapse and probable mild case of pulmonary edema. Cheyanne Reveles MD Physical Exam GENERAL: On T-piece, tachypneic, but with good sats, no interaction SKIN: Warm and dry. No generalized rash. HEENT: [place] conjunctivae. No scleral icterus. Moist mucosa NECK: Trach in place, site ok, no blood. Supple. Has swelling on L side of neck, ?due to position, not red, ?parotid CARDIOVASCULAR: Regular S1S2 RESPIRATORY: Decreased BS rikki, with scattered wheezing GASTROINTESTINAL: Abdomen distended, bowel sounds are present, hypoactive. PEG site ok. Some grimacing with palpation MUSCULOSKELETAL: Extremities without clubbing, cyanosis, or pedal edema. Hands edematous : Has very swollen scrotum, mercado with small amount of sediment NEUROLOGICAL: Sedated PSYCH: Unable to assess LINE: PIV with no evidence of infection Assessment & Plan Remarks IMPRESSION Respiratory failure,S/P trach - S/P RX Aspiration, S/P Rx MV and TV vegetation on recent echo, all BC have been negative - ?GPC, ?GNR - initial echo negative, and second echo that showed the vegetation Has R effusion, has CT in place Pneumonia present on admission: likely aspiration in setting of dementia. S/P Rx C diff positive, clinically resolved Ongoing aspiration. Dementia Acute metabolic encephalopathy Fevers: Concomitant antibiotics for Pneumonia ppting Cdiff, ongoing aspiration - temps better. Renal insufficiency L neck/jaw swelling, ?parotid RECOMMENDATION Continue IV Vanco - Pharm doing dosing - aim for trough 15-20 Continue Cefepime 4 week of Abx would be till March 20 - end dates ordered in [facility] at least once a week while on IV Abx: CBC, creat, LFT Monitor temps Monitor progress Weaning per CCM D/W RN Tricia Garcia MD March 08, 2017 10:46 Tricia Garcia MD March 08, 2017 10:46
--- NOTE | 2017-03-08 11:38 | HHI.CCPN ---
Subjective Remarks/Hospital Course This is a 86yM who presented from home with altered mental status and end-stage dementia. His hospital course has been complicated by C. Diff and pneumonia for which he is on appropriate therapy. He has been noted to have [id number] aspiration during this hospital stay and has been NPO. Today, a rapid response was called for acute respiratory distress and hypoxia. I was called by Dr. Velez at the rapid response. He believe this is an aspiration event given the patient's clinical history. I immediately went and evaluated the patient. He is labored and in distress. his spo2 is 93% on non-rebreather. He is also in what appears to be new-onset atrial fibrillation with RVR and a HR 160s. Brief review of the pertinent laboratory data demonstrate worsening acute kidney injury, worsening anion-gap metabolic acidosis. Critical care medicine is consulted to evaluate and manage his severe respiratory distress and afib RVR. Unfortunately, the patient is obtunded and cannot provide any additional history. 02/13: no clinical improvements. remains in multiorgan system failure. diltiazem drip weaned to off, but remains on phenylephrine. talked with nephrology who feel clinically, despite some element of JVD, that patient is clinically intravascularly hypovolemic and they recommend gentle ivf hydration, which I am ok with as a trial. mental status poor. kidney injury persists. palliative involved. apparently daughter is not health care surrogate legally, but has been making decisions in the outpatient setting. multiple disagreements within the family. appreciate palliative involvement. 02/14: Renal function continues to worsen and today 57/4.1. D/w Nephrology. If family wants everything done, will need to proceed with HD. Tmax 101.1. ID following 02/15: Remains critically ill, did not tolerate brief CPAP trial. CXR shows mod to large R pl effusion. MAXIMUM TEMPERATURE 100.5. Creatinine slightly improved with urine output more than 1.4 L 02/16: Patient remains intubated, lightly sedated.. Did not tolerate C-peptide yesterday due to tachypnea. CT of the chest shows moderately large right effusion plan for thoracentesis 02/17: Tmax 100.7. No bowel movement since 02/12. On sedation vacation withdrawals but does not follow commands. Tolerating tube feeds at goal. 02/18: Afebrile. One bowel movement overnight. Tolerating tube feeding. Placement of 10 [place] pigtail catheter with 600 cc likely transudative effusion. Tachycardic this AM. 02/19: Currently down for CT abdomen/pelvis with distended abdomen. Also MRA brain/neck with acute/subacute bifrontal CVA. Neurology consult pending. Will likely need tracheostomy. 02/20: Noted emesis last night [address] abdomen/pelvis unremarkable. Moderate gastric output. Started on Reglan. Positive BM. 02/21: Afebrile. Tolerating trickle feeds. One bowel movement. Noted echocardiogram report yesterday. Discussed with Dr. Garcia - blood cultures 2, vancomycin. Reassess in a.m.. Attempting to obtain consent for tracheostomy with . 02/22: Neuro exam unchanged. Mental status will not permit extubation. UO adequate, creat improving. Tracheostomy tomorrow 02/23: Creat continues to improve, no change in mentation. Trach with Parminder today, GI consulted for PEG placement. 02/24: Afebrile. Status post tracheostomy by Dr. Zurita yesterday. Unable to replace gastric tube secondary to bleeding. Plan for PEG on Sunday. 02/25: Currently afebrile. Tracheostomy without bleeding. Hypertensive requiring when necessary's. Plan for PEG Monday 02/26: Afebrile. Check yesterday was unpacked last night. Repacked today. On sedation. Plan for PEG today. 02/27: Afebrile. Chest without bleeding. Continues to be on sedation due to agitation. PEG tube yesterday without competition. Plan remove chest tube today. 02/28: Resting currently in bed. No change in neurological status. Tracheostomy without bleeding. No acute issues. 03/01: Afebrile. More tremulous this a.m. upon removal of fentanyl drip. Currently on PSV trial. Positive BM 2. Tolerating tube feeds at 35 cc an hour. Neurological status unchanged. 03/02: Tmax 100.7. Currently 98.9. One bowel movement yesterday. Tolerating tube feeds at 40 cc an hour. Becomes agitated with removal of fentanyl drip. 03/03 WBC 15.3. Afebrile. On vanc and cefepime per ID. Tolerating CPAP 08/09 with RSBI 40s 03/04 Diuresed net -1.1 L yesterday. Tolerating C Pap 10 over 5 very well and appears can wean further. 03/05: continues to diurese well. still tolerates cpap. awaiting placement. 03/06: Cr slightly worse. likely at dry weight. still tolerating cpap, weaning down support. not ready for t-piece yet, but some improvement. [id number] review today with [employer]. I do not see any barriers to transfer to LTAC. patient does not have any additional inpatient medical needs. 03/07: Afebrile. On PSV trials today. Tolerating tube feeding. Positive bowel movement. Neurological status unchanged. Subjective: 03/08: Afebrile. Tolerating tube feeds. Currently on T piece. Neurological status unchanged. Off all sedative drips Objective Vital Signs Date Time Temp Pulse Resp B/P Pulse Ox O2 Delivery O2 Flow Rate FiO2 03/08/17 10:00 105 03/08/17 09:00 20 111/82 100 03/08/17 08:38 T-piece 6.00 35 03/08/17 08:00 97.8 Intake and Output 03/07/17 03/07/17 03/08/17 08:00 16:00 00:00 Intake Total 711 ml 765 ml 840 ml Output Total 525 ml 500 ml 750 ml Balance 186 ml 265 ml 90 ml Result Diagram: 03/08/17 0530 03/08/17 0530 Imaging Last Impressions Chest X-Ray 03/03/17 0600 Signed Impressions: Service Date/Time: Friday, March 03, 2017 05:06 - CONCLUSION: No significant change. Tra Carroll MD Neck Magnetic Resonance Angiography 02/19/17 0000 Signed Impressions: Service Date/Time: Sunday, February 19, 2017 09:18 - CONCLUSION: 1. 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 Left vertebral emanates directly from the arch. 2. Otherwise, cervical vessels are all patent with no significant stenosis. Patient is slightly right vertebral dominant distally. Robbie Huggins MD Head Magnetic Resonance Angiography 02/19/17 0000 Signed Impressions: Service Date/Time: Sunday, February 19, 2017 09:18 - CONCLUSION: 1. 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 Intracranial vessels are otherwise patent. 2. No aneurysmal disease. 3. Anatomic variant of the [place] of [place] as above. Patient is right vertebral dominant. Robbie Huggins MD Chest CT 02/16/17 0000 Signed Impressions: Service Date/Time: Thursday, February 16, 2017 13:26 - CONCLUSION: 1. Moderate to large right and small left pleural effusion with associated compressive atelectasis. There additionally is airspace consolidation in the right lower lobe. 2. Small pericardial effusion. 3. There are 2 nodules in the right upper lobe measuring 5 mm and 10 mm. Suggest attention to these at followup imaging. Tra Ma MD Brain MRI 02/16/17 0000 Signed Impressions: Service Date/Time: Thursday, February 16, 2017 13:44 - CONCLUSION: Atrophy and extensive white matter disease as well as micro-bleeds the route the cerebral hemispheres and cerebellum. Punctate foci of acute infarction are suspected within the bilateral frontal white matter as described above. Scott Garcia MD Abdomen/Pelvis CT 02/16/17 0000 Signed Impressions: Service Date/Time: Thursday, February 16, 2017 13:26 - CONCLUSION: 1. Diffuse body wall edema, bilateral effusions, pericardial effusion and lower lobe atelectasis and consolidation. 2. Atherosclerosis. Scott Garcia MD Abdomen X-Ray 02/15/17 0000 Signed Impressions: Service Date/Time: February 11:42 - CONCLUSION: Nonspecific abdomen appearance. Tra Garibay MD Head CT 02/07/171946 Signed Impressions: Service Date/Time: Tuesday, February 07, 2017 20:03 - CONCLUSION: No acute intracranial injury Tra Garibay MD Objective Remarks GENERAL: 86-year-old male, currently on ventilator via tracheostomy in no acute distress SKIN: Warm and dry. No rash HEAD: Atraumatic. Normocephalic. EYES: Pupils equal and round about 3-4 mm bilaterally and reactive. No scleral icterus. No injection or drainage. ENT: No nasal bleeding or discharge. Mucous membranes pink and moist. Oropharynx without erythema. Tracheostomy site is clean dry and intact with no drainage NECK: Trachea midline. Minimal JVD. CARDIOVASCULAR: RRR. S1, S2. No S4. Faint 1 out of 6 diastolic murmur appreciated RESPIRATORY: Few crackles in bases bilaterally and symmetrical. No wheeze GASTROINTESTINAL: Abdomen slightly protuberant . Nontender. PEG tube site is clean dry and intact. Tolerating tube feeds : Positive scrotal edema. MUSCULOSKELETAL: Extremities with 1-2+ upper and lower extremity pitting edema. No obvious deformities. NEUROLOGICAL: Some facial grimacing. Withdraws all extremities. Procedures None A/P Assessment and Plan Neuro/Psych: Acute metabolic encephalopathy End-stage dementia Right [place] high-grade stenosis Oxycodone 10 mg q 4hours scheduled. Seroquel 50 milligrams by mouth q8. CT head 02/07 negative for acute disease MRI brain 02/16 revealed increased signal intensity in the bilateral centrum semi -ovale and periventricular white matter, remote basal ganglia infarcts bilaterally and periventricular punctuate blooming micro-bleeds throughout. 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 Left vertebral takes off from aortic arch Neurology consult Dr. Avalos appreciated. Noted echo 02/12 no vegetations. 02/19 revealed 2 x 4 mm mitral valve leaflet and tricuspid valve lateral leaflet likely vegetation. Not a anticoagulation candidate per neurology due to micro-hemorrhages. Recommended repeat MRI in 4-6 weeks resolution of micro-hemorrhages/rule out septic emboli before initiation anticoagulation Continue aspirin 81 mg daily EEG 02/16 reveals moderate to severe encephalopathy. No epileptiform activity. EEG 03/05 - diffuse encephalopathy Respiratory: Acute hypoxic respiratory failure Aspiration pneumonitis [id number] aspiration Mod to large R effusion/small left pleural effusion Right upper lobe pulmonary nodules 5 and 10 mm. Recommend follow up CT in 3-6 months [facility] 16//11/09/29. Currently on T piece of 35% -- vent bundle Bronchodilator therapy every 6 hours with albuterol every 2 hours for breakthrough -- HOB at 30 degrees -- wean fiO2 for goal spo2 > 92% CT chest 02/16 revealed moderate to large right pleural effusion and atelectasis/ small left pleural effusion. Status post placement of pigtail catheter right effusion 02/17. Removed 02/28 Tracheostomy 02/[address] Zurita, Cardiovascular: Atrial Fibrillation with Rapid Ventricular Response-early normal sinus rhythm Acute systolic heart failure Small pericardial effusion Echocardiogram 02/12 revealed EF 30-35%. Moderate TR. MARIA 53 mmHg. Echocardiogram 02/19 revealed EF 35%. Hypokinesis global. Small [place] densities tricuspid and mitral valve ? vegetation question right MARIA 52 mmHg. Home medications: metoprolol 50 mg daily, losartan 100 mg daily and hydralazine 50 mg twice a day currently on hold. Currently metoprolol 50 every 8 hours and hydralazine to 25 every 8 hours Renal: Acute Kidney Injury secondary to ATN Zimmerman to monitor accurate UOP on patient who is critically ill on diuretics. Creatinine stabilized around 1.3-1.6. Nephrology signed off. appears to be at dry weight. will hold diuretics today. On free water 100 ml q8 FEN/GI: Acute protein calorie malnutrition- severe C.Difficile Colitis Diarrhea Acute on chronic Aspiration Constipation Hyponatremia Hypophosphatemia TF with Jevity 1.5 goal 60 cc an hour resumed 02/27. Colace twice a day/Senokot twice a day. Miralax daily CT abdomen/pelvis revealed pericardial effusion, bilateral pleural effusions. Significant edema Repeat CT abdomen/pelvis with distended abdomen. Revealed right L1/left L3 transverse process fracture. Anasarca. PEG tube by Dr. Cox Heme/ID: C. 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 Garcia following ABX per ID Completed 14 day course of flagyl 02/23 for aspiration and C diff. 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 Stop date March 20 Pertinent cultures 02/07 - blood cultures 2 - no growth 02/08 - stool -- C. difficile positive 02/09 - blood cultures 2 - no growth 02/12 - urine - no growth 02/13 - sputum - no growth 02/15 - blood cultures 2 - no growth 02/18 - urine - no growth 02/21 - blood no growth to date Endocrine: Hyperglycemia of critical illness (resolved) No sliding-scale ordered currently Prophylaxis: GI Prevacid DVT - SCD/pharmacological prophylaxis contraindicated with microhemorrhages. See neuro Geraldine Morgan [phone] is health care proxy. Daughter in charge of finances. Critical Care: The total critical care time was 35 minutes. Time to perform other separately billable procedures was not included in the critical care time. Gerry Mike MD March 08, 2017 11:38
[2017-03-08] MEDS ORDERED: SODIUM PHOSPHATE INJ 30 MMOL in SODIUM CHLOR 0.9% 250 ML INJ 250 ML IV ONE (13:00)
[2017-03-08] MEDS: BACITRACIN TOP OINT 15 GM TUBE TOPICAL SCH ×2 (13:01→20:45)
[2017-03-08] MEDS: COLLAGENASE OINT 30 GM TUBE TOPICAL SCH (13:01)
--- NOTE | 2017-03-08 18:12 | HHI.PR ---
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 Will obtain EEG due to the myoclonic activity to r/o sz. Diagnosis/Plan: Subjective Subjective Comments No acute events reported Active Medications Current Medications Medications (Trade) Dose Ordered Sig/Connor Route Start Time Stop Time Status Last Admin (Zofran Inj) 4 mg Q8H PRN IV PUSH 02/07/17 21:45 (Tylenol) 500 mg Q4H PRN PO 02/08/17 13:15 03/02/17 08:01 (Lactinex) 1 tab TID PO 02/09/17 13:00 03/08/17 16:54 (Peridex 0.12% Liq) 15 ml BID@08,20 MT 02/12/17 20:00 03/07/17 21:11 (D50w (Vial) Inj) 25 ml UNSCH PRN IV PUSH 02/12/17 14:30 02/24/17 18:16 (Aspirin Chew) 81 mg DAILY CHEW 02/13/17 09:00 03/08/17 08:11 Miscellaneous Information Patient in critical care unit? Ass... Q361D .XX 02/12/17 22:00 (Senna Liq) 8.8 mg BID PO 02/17/17 21:00 03/08/17 08:11 (Glycerin Adult Supp) 2 gm BID PRN RECTAL 02/17/17 10:15 (Tears Naturale Opth Soln) 1 drop Q8HR EACH EYE 02/17/17 14:00 03/08/17 13:32 Metoclopramide HCl 5 mg 5 mg Q8HR IV PUSH 02/19/17 14:00 03/08/17 12:57 (Vancomycin Consult Pharmacy) 0 ml @ 0 mls/hr UNSCH OTHER 02/21/17 13:15 Docusate Sodium 100 mg 100 mg BID PO 02/22/17 09:00 03/08/17 08:11 (Maxipime Inj/NS Inj) 100 ml @ 200 mls/hr Q12H IV 02/23/17 16:00 03/20/17 23:00 03/08/17 16:54 (Trandate Inj) 10 mg Q1H PRN IV PUSH 02/24/17 08:00 03/02/17 08:01 (Apresoline Inj) 10 mg Q1H PRN IV PUSH 02/24/17 08:00 03/07/17 02:49 Nitroglycerin 2 inch 2 inch Q6H PRN TOPICAL 02/24/17 08:00 (Vancomycin Inj/ NS 500 ml Inj) 515 ml @ 250 mls/hr Q24H IV 02/28/17 12:00 03/20/17 23:00 Hold 03/05/17 12:17 (Santyl Oint) 1 applic DAILY TOPICAL 03/01/17 09:00 03/08/17 13:01 (Baciguent Oint) 1 applic Q12HR TOPICAL 02/28/17 21:00 03/08/17 13:01 (Miralax) 17 gm DAILY PO 03/01/17 09:00 03/08/17 08:13 (NS Flush) See Protocol DAILY IV FLUSH 03/02/17 09:00 03/05/17 10:21 (NS Flush) See Protocol UNSCH PRN IV FLUSH 03/01/17 19:15 03/03/17 06:08 (Heparin Central Flush) See Protocol DAILY IV FLUSH 03/02/17 09:00 03/08/17 08:12 (Heparin Central Flush) See Protocol UNSCH PRN IV FLUSH 03/01/17 19:15 (NS Flush) UNSCH PRN IV FLUSH 03/01/17 19:15 03/02/17 08:02 (Roxicodone Intensol Liq) 10 mg Q4HR PO 03/03/17 00:00 03/08/17 13:01 (SEROquel) 50 mg Q8HR PO 03/02/17 22:00 03/08/17 12:58 (Apresoline) 25 mg Q8HR PO 03/02/17 22:00 03/08/17 12:58 Fentanyl Citrate 50 mcg 50 mcg Q2H PRN IV PUSH 03/02/17 21:00 Potassium Chloride 100 ml @ 50 mls/hr Q2H PRN IV 03/03/17 14:30 (KCl 20 Meq Premix Inj) 100 ml @ 50 mls/hr Q2H PRN IV 03/03/17 14:30 Potassium Bicarb/ Potassium Chloride 50 meq 50 meq UNSCH PRN PO 03/03/17 14:30 Potassium Chloride 100 ml @ 25 mls/hr UNSCH PRN IV 03/03/17 14:30 Potassium Chloride 100 ml @ 50 mls/hr Q2H PRN IV 03/03/17 14:30 (Magnesium Sulfate Inj/NS Inj) 100 ml @ 50 mls/hr UNSCH PRN IV 03/03/17 14:30 Magnesium Oxide 800 mg 800 mg UNSCH PRN PO 03/03/17 14:30 (Magnesium Sulfate Inj/NS Inj) 100 ml @ 50 mls/hr UNSCH PRN IV 03/03/17 14:30 Potassium Phosphate 2000 mg 2,000 mg Q4H PRN PO 03/03/17 14:30 (Sodium Phosphate Inj/NS 250 ml Inj) 250 ml @ 42 mls/hr UNSCH PRN IV 03/03/17 14:30 03/03/17 17:44 (K-Phos) 2,000 mg UNSCH PRN PO/TUBE 03/03/17 14:30 (Lopressor) 50 mg Q8HR PO 03/07/17 22:00 03/08/17 12:58 (Free Water) VOLUME OF WATER: (100) ML Q8H G-TUBE 03/08/17 02:00 03/08/17 16:55 Lansoprazole 30 mg 30 mg DAILY NG 03/08/17 09:00 03/08/17 08:11 (Sodium Phosphate Inj/NS 250 ml Inj) 260 ml @ 43.333 mls/ hr ONCE ONCE IV 03/08/17 13:00 03/08/17 18:59 03/08/17 13:32 Allergies Allergies Coded Allergies No Known Allergies (Verified11/22/06) UNOBTAINABLE (Unverified02/09/17) Exam I&O / VS 03/07/17 03/07/17 03/08/17 15:00 23:00 07:00 Intake Total 765 ml 840 ml 548 ml Output Total 500 ml 750 ml 300 ml Balance 265 ml 90 ml 248 ml Intake Oral 0 ml 0 ml IV Total 78 ml 192 ml 48 ml Tube Feeding 487 ml 448 ml 300 ml Other 200 ml 200 ml 200 ml Output Urine Total 500 ml 750 ml 300 ml # Bowel Movements 1 0 1 Vital Signs Date Time Temp Pulse Resp B/P Pulse Ox O2 Delivery O2 Flow Rate FiO2 03/08/17 17:30 100 19 134/90 100 03/08/17 17:00 101 21 135/94 100 03/08/17 16:30 101 17 160/74 100 03/08/17 16:12 100 35 03/08/17 16:00 35 03/08/17 16:00 105 03/08/17 16:00 97.9 98 17 147/77 100 03/08/17 14:01 16 03/08/17 14:00 105 03/08/17 13:30 98 35 03/08/17 13:30 97.8 106 19 172/85 100 03/08/17 13:00 119 25 171/79 100 03/08/17 12:57 124 24 178/117 100 03/08/17 12:00 105 03/08/17 12:00 110 23 195/83 100 03/08/17 12:00 35 03/08/17 10:00 105 03/08/17 09:00 105 20 111/82 100 03/08/17 08:38 98 T-piece 6.00 35 03/08/17 08:00 35 03/08/17 08:00 97.8 99 20 128/70 100 03/08/17 08:00 105 03/08/17 06:00 119 03/08/17 05:00 100 35 03/08/17 04:00 98.9 100 19 146/82 100 03/08/17 04:00 35 03/08/17 04:00 100 03/08/17 02:00 90 03/08/17 01:00 100 35 03/08/17 00:00 95 03/08/17 00:00 98.8 95 21 147/81 100 03/08/17 00:00 35 03/07/17 22:00 97 03/07/17 20:00 99.0 117 16 152/92 100 03/07/17 20:00 117 03/07/17 20:00 35 03/07/17 19:43 100 35 Exam Comments very lethargic does not follow commands Pupils equal Motor--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 manager client support weakly bilaterally, no other spontaneous movement- with stimulation, he does have spontaneous myoclonus of UE bilaterally Objective Micro and Labs Laboratory Tests Test 03/08/17 05:30 White Blood Count 10.4 Red Blood Count 2.74 Hemoglobin 8.4 Hematocrit 24.1 Mean Corpuscular Volume 87.7 Mean Corpuscular Hemoglobin 30.5 Mean Corpuscular Hemoglobin 34.8 Concent Red Cell Distribution Width 15.4 Platelet Count 342 Mean Platelet Volume 9.6 Neutrophils (%) (Auto) 65.9 Lymphocytes (%) (Auto) 13.7 Monocytes (%) (Auto) 13.3 Eosinophils (%) (Auto) 6.5 Basophils (%) (Auto) 0.6 Neutrophils # (Auto) 6.8 Lymphocytes # (Auto) 1.4 Monocytes # (Auto) 1.4 Eosinophils # (Auto) 0.7 Basophils # (Auto) 0.1 CBC Comment DIFF FINAL Differential Comment Sodium Level 135 Potassium Level 4.3 Chloride Level 102 Carbon Dioxide Level 28.3 Anion Gap 5 Blood Urea Nitrogen 30 Creatinine 1.69 Estimat Glomerular Filtration 47 Rate Random Glucose 122 Calcium Level 8.2 Phosphorus Level 2.0 Magnesium Level 2.2 Total Bilirubin 0.4 Aspartate Amino Transf 56 (AST/SGOT) Alanine Aminotransferase 37 (ALT/SGPT) Alkaline Phosphatase 123 Total Protein 6.9 Albumin 1.9 Random Vancomycin Level 28.4 Darius Avalos PhD March 08, 2017 18:12
[2017-03-08] MEDS: hydrALAZINE HCL 20 MG/ML VIAL IV PUSH PRN (19:13)
[2017-03-09] VITALS (19 sets, daily range): BP systolic 117–173; BP diastolic 63–92; PULSE 86–105; RESP 17–21; TEMP 97.6–99.3; O2SAT 98–100
[2017-03-09] MEDS: oxyCODONE HCL ORAL CONC 20 MG/ML SYRINGE PO SCH ×6 (00:37→21:28)
[2017-03-09] MEDS: FREE WATER G-TUBE SCH ×2 (00:37→08:49)
[2017-03-09] MEDS ORDERED: FOSPHENYTOIN SODIUM 100 MG PE/2 ML VIAL IV SCH (04:00)
[2017-03-09] MEDS: RESP: ALBUTEROL 2.5 MG/IPRATROPIUM 0.5 MG NEB (SCH) NEB ×4 (04:15→19:33)
[2017-03-09] MEDS: CEFEPIME INJ 2,000 MG in SODIUM CHLORIDE 0.9% INJ 100 ML IV SCH (04:45)
[2017-03-09] MEDS: METOPROLOL TARTRATE 50 MG TAB PO SCH ×3 (04:46→21:25)
[2017-03-09] MEDS: QUEtiapine FUMARATE 25 MG TAB PO SCH ×3 (04:46→21:25)
[2017-03-09] MEDS: METOCLOPRAMIDE HCL 10 MG/2 ML VIAL IV PUSH SCH ×3 (04:46→21:25)
[2017-03-09] MEDS: hydrALAZINE HCL 25 MG TAB PO SCH ×3 (04:46→21:25)
[2017-03-09] MEDS: ARTIFICIAL TEARS OPTH SOLN 15 ML BTL EACH EYE SCH ×3 (04:47→21:26)
[2017-03-09 05:30] LABS: HEMATOCRIT 22.4 % (39.0-51.0); MEAN CELL VOLUME 88.8 FL (80.0-100.0); MEAN CORPUSCULAR HEMOGLOBIN 30.1 PG (27.0-34.0); PLATELET COUNT 300 TH/MM3 (150-450); RED BLOOD COUNT 2.53 MIL/MM3 (4.50-5.90); RED CELL DISTRIBUTION WIDTH 15.7 % (11.6-17.2); REVIEW FLAG FINAL; WHITE BLOOD COUNT 7.8 TH/MM3 (4.0-11.0)
[2017-03-09 05:46] LABS: BICARBONATE 27.9 MEQ/L (21.0-32.0); MAGNESIUM 2.1 MG/DL (1.5-2.5); POTASSIUM 4.2 MEQ/L (3.5-5.1)
[2017-03-09] MEDS: LACTOBACILLUS ACIDOPHILUS TAB PO SCH ×3 (08:46→16:26)
[2017-03-09] MEDS: ASPIRIN 81 MG CHEW TAB CHEW SCH (08:46)
[2017-03-09] MEDS: POLYETHYLENE GLYCOL 17 GM PKG PO SCH (08:46)
[2017-03-09] MEDS: DOCUSATE SODIUM 100 MG/10 ML UDC PO SCH ×2 (08:46→21:27)
[2017-03-09] MEDS: CHLORHEXIDINE 0.12% (ORAL KIT) 15 ML CUP MT SCH ×2 (08:47→21:28)
[2017-03-09] MEDS: LANSOPRAZOLE SOLUTAB 30 MG TAB NG SCH (08:48)
[2017-03-09] MEDS: SODIUM CHLORIDE 0.9% FLUSH 10 ML FLUSH IV FLUSH SCH (08:48)
[2017-03-09] MEDS: SENNOSIDES SYRUP 8.8 MG/5 ML CUP PO SCH ×2 (08:48→21:23)
[2017-03-09] MEDS: COLLAGENASE OINT 30 GM TUBE TOPICAL SCH (08:49)
[2017-03-09] MEDS: BACITRACIN TOP OINT 15 GM TUBE TOPICAL SCH ×2 (08:49→21:27)
--- NOTE | 2017-03-09 11:46 | HHI.CCPN ---
Subjective Remarks/Hospital Course This is a 86yM who presented from home with altered mental status and end-stage dementia. His hospital course has been complicated by C. Diff and pneumonia for which he is on appropriate therapy. He has been noted to have [id number] aspiration during this hospital stay and has been NPO. Today, a rapid response was called for acute respiratory distress and hypoxia. I was called by Dr. Velez at the rapid response. He believe this is an aspiration event given the patient's clinical history. I immediately went and evaluated the patient. He is labored and in distress. his spo2 is 93% on non-rebreather. He is also in what appears to be new-onset atrial fibrillation with RVR and a HR 160s. Brief review of the pertinent laboratory data demonstrate worsening acute kidney injury, worsening anion-gap metabolic acidosis. Critical care medicine is consulted to evaluate and manage his severe respiratory distress and afib RVR. Unfortunately, the patient is obtunded and cannot provide any additional history. 02/13: no clinical improvements. remains in multiorgan system failure. diltiazem drip weaned to off, but remains on phenylephrine. talked with nephrology who feel clinically, despite some element of JVD, that patient is clinically intravascularly hypovolemic and they recommend gentle ivf hydration, which I am ok with as a trial. mental status poor. kidney injury persists. palliative involved. apparently daughter is not health care surrogate legally, but has been making decisions in the outpatient setting. multiple disagreements within the family. appreciate palliative involvement. 02/14: Renal function continues to worsen and today 57/4.1. D/w Nephrology. If family wants everything done, will need to proceed with HD. Tmax 101.1. ID following 02/15: Remains critically ill, did not tolerate brief CPAP trial. CXR shows mod to large R pl effusion. MAXIMUM TEMPERATURE 100.5. Creatinine slightly improved with urine output more than 1.4 L 02/16: Patient remains intubated, lightly sedated.. Did not tolerate C-peptide yesterday due to tachypnea. CT of the chest shows moderately large right effusion plan for thoracentesis 02/17: Tmax 100.7. No bowel movement since 02/12. On sedation vacation withdrawals but does not follow commands. Tolerating tube feeds at goal. 02/18: Afebrile. One bowel movement overnight. Tolerating tube feeding. Placement of 10 [place] pigtail catheter with 600 cc likely transudative effusion. Tachycardic this AM. 02/19: Currently down for CT abdomen/pelvis with distended abdomen. Also MRA brain/neck with acute/subacute bifrontal CVA. Neurology consult pending. Will likely need tracheostomy. 02/20: Noted emesis last night [address] abdomen/pelvis unremarkable. Moderate gastric output. Started on Reglan. Positive BM. 02/21: Afebrile. Tolerating trickle feeds. One bowel movement. Noted echocardiogram report yesterday. Discussed with Dr. Garcia - blood cultures 2, vancomycin. Reassess in a.m.. Attempting to obtain consent for tracheostomy with . 02/22: Neuro exam unchanged. Mental status will not permit extubation. UO adequate, creat improving. Tracheostomy tomorrow 02/23: Creat continues to improve, no change in mentation. Trach with Parminder today, GI consulted for PEG placement. 02/24: Afebrile. Status post tracheostomy by Dr. Zurita yesterday. Unable to replace gastric tube secondary to bleeding. Plan for PEG on Sunday. 02/25: Currently afebrile. Tracheostomy without bleeding. Hypertensive requiring when necessary's. Plan for PEG Monday 02/26: Afebrile. Check yesterday was unpacked last night. Repacked today. On sedation. Plan for PEG today. 02/27: Afebrile. Chest without bleeding. Continues to be on sedation due to agitation. PEG tube yesterday without competition. Plan remove chest tube today. 02/28: Resting currently in bed. No change in neurological status. Tracheostomy without bleeding. No acute issues. 03/01: Afebrile. More tremulous this a.m. upon removal of fentanyl drip. Currently on PSV trial. Positive BM 2. Tolerating tube feeds at 35 cc an hour. Neurological status unchanged. 03/02: Tmax 100.7. Currently 98.9. One bowel movement yesterday. Tolerating tube feeds at 40 cc an hour. Becomes agitated with removal of fentanyl drip. 03/03 WBC 15.3. Afebrile. On vanc and cefepime per ID. Tolerating CPAP 08/09 with RSBI 40s 03/04 Diuresed net -1.1 L yesterday. Tolerating C Pap 10 over 5 very well and appears can wean further. 03/05: continues to diurese well. still tolerates cpap. awaiting placement. 03/06: Cr slightly worse. likely at dry weight. still tolerating cpap, weaning down support. not ready for t-piece yet, but some improvement. [id number] review today with [employer]. I do not see any barriers to transfer to LTAC. patient does not have any additional inpatient medical needs. 03/07: Afebrile. On PSV trials today. Tolerating tube feeding. Positive bowel movement. Neurological status unchanged. Subjective: 03/08: Afebrile. Tolerating tube feeds. Currently on T piece. Neurological status unchanged. Off all sedative drips 03/09 No acute events overnight. On ventilator via trach, afebrile. On no drips. Cr: 1.79 today from 1.69. Objective Vital Signs Date Time Temp Pulse Resp B/P Pulse Ox O2 Delivery O2 Flow Rate FiO2 03/09/17 09:46 19 03/09/17 09:13 100 35 03/09/17 06:00 95 03/09/17 04:00 99.2 137/76 03/08/17 08:38 T-piece 6.00 Intake and Output 03/08/17 03/08/17 03/09/17 08:00 16:00 00:00 Intake Total 548 ml 1048 ml 903 ml Output Total 300 ml 800 ml 542 ml Balance 248 ml 248 ml 361 ml Result Diagram: 03/09/17 0442 03/09/17 0442 Other Results Laboratory Tests Test 03/09/17 04:42 White Blood Count 7.8 TH/MM3 Red Blood Count 2.53 MIL/MM3 Hemoglobin 7.6 GM/DL Hematocrit 22.4 % Mean Corpuscular Volume 88.8 FL Mean Corpuscular Hemoglobin 30.1 PG Mean Corpuscular Hemoglobin 34.0 % Concent Red Cell Distribution Width 15.7 % Platelet Count 300 TH/MM3 Mean Platelet Volume 9.1 FL Sodium Level 137 MEQ/L Potassium Level 4.2 MEQ/L Chloride Level 102 MEQ/L Carbon Dioxide Level 27.9 MEQ/L Anion Gap 7 MEQ/L Blood Urea Nitrogen 33 MG/DL Creatinine 1.79 MG/DL Estimat Glomerular Filtration 44 ML/MIN Rate Random Glucose 133 MG/DL Calcium Level 7.7 MG/DL Phosphorus Level 2.7 MG/DL Magnesium Level 2.1 MG/DL Imaging Last Impressions Chest X-Ray 03/03/17 0600 Signed Impressions: Service Date/Time: Friday, March 03, 2017 05:06 - CONCLUSION: No significant change. Tra Carroll MD Neck Magnetic Resonance Angiography 02/19/17 0000 Signed Impressions: Service Date/Time: Sunday, February 19, 2017 09:18 - CONCLUSION: 1. 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 Left vertebral emanates directly from the arch. 2. Otherwise, cervical vessels are all patent with no significant stenosis. Patient is slightly right vertebral dominant distally. Robbie Huggins MD Head Magnetic Resonance Angiography 02/19/17 0000 Signed Impressions: Service Date/Time: Sunday, February 19, 2017 09:18 - CONCLUSION: 1. 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 Intracranial vessels are otherwise patent. 2. No aneurysmal disease. 3. Anatomic variant of the [place] as above. Patient is right vertebral dominant. Robbie Huggins MD Chest CT 02/16/17 0000 Signed Impressions: Service Date/Time: Thursday, February 16, 2017 13:26 - CONCLUSION: 1. Moderate to large right and small left pleural effusion with associated compressive atelectasis. There additionally is airspace consolidation in the right lower lobe. 2. Small pericardial effusion. 3. There are 2 nodules in the right upper lobe measuring 5 mm and 10 mm. Suggest attention to these at followup imaging. Tra Ma MD Brain MRI 02/16/17 0000 Signed Impressions: Service Date/Time: Thursday, February 16, 2017 13:44 - CONCLUSION: Atrophy and extensive white matter disease as well as micro-bleeds the route the cerebral hemispheres and cerebellum. Punctate foci of acute infarction are suspected within the bilateral frontal white matter as described above. Scott Garcia MD Abdomen/Pelvis CT 02/16/17 0000 Signed Impressions: Service Date/Time: Thursday, February 16, 2017 13:26 - CONCLUSION: 1. Diffuse body wall edema, bilateral effusions, pericardial effusion and lower lobe atelectasis and consolidation. 2. Atherosclerosis. Scott Garcia MD Abdomen X-Ray 02/15/17 0000 Signed Impressions: Service Date/Time: February 11:42 - CONCLUSION: Nonspecific abdomen appearance. Tra Garibay MD Head CT 02/07/171946 Signed Impressions: Service Date/Time: Tuesday, February 07, 2017 20:03 - CONCLUSION: No acute intracranial injury Tra Garibay MD Objective Remarks GENERAL: 86-year-old male, currently on ventilator via tracheostomy in no acute distress SKIN: Warm and dry. No rash HEAD: Atraumatic. Normocephalic. EYES: Pupils equal and round about 3-4 mm bilaterally and reactive. No scleral icterus. No injection or drainage. ENT: No nasal bleeding or discharge. Mucous membranes pink and moist. Oropharynx without erythema. Tracheostomy site is clean dry and intact with no drainage NECK: Trachea midline. Minimal JVD. CARDIOVASCULAR: RRR. S1, S2. No S4. Faint 1 out of 6 diastolic murmur appreciated RESPIRATORY: Few crackles in bases bilaterally and symmetrical. No wheeze GASTROINTESTINAL: Abdomen slightly protuberant . Nontender. PEG tube site is clean dry and intact. Tolerating tube feeds : Positive scrotal edema. MUSCULOSKELETAL: Extremities with 1-2+ upper and lower extremity pitting edema. No obvious deformities. NEUROLOGICAL: Some facial grimacing. Withdraws all extremities. Procedures None A/P Assessment and Plan Neuro/Psych: Acute metabolic encephalopathy End-stage dementia Right KNIFE CUTTER high-grade stenosis Oxycodone 10 mg q 4hours scheduled. Seroquel 50 milligrams by mouth q8. CT head 02/07 negative for acute disease MRI brain 02/16 revealed increased signal intensity in the bilateral centrum semi -ovale and periventricular white matter, remote basal ganglia infarcts bilaterally and periventricular punctuate blooming micro-bleeds throughout. 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 Left vertebral takes off from aortic arch Neurology consult Dr. Avalos appreciated. Noted echo 02/12 no vegetations. 02/19 revealed 2 x 4 mm mitral valve leaflet and tricuspid valve lateral leaflet likely vegetation. Not a anticoagulation candidate per neurology due to micro-hemorrhages. Recommended repeat MRI in 4-6 weeks resolution of micro-hemorrhages/rule out septic emboli before initiation anticoagulation Continue aspirin 81 mg daily EEG 02/16 reveals moderate to severe encephalopathy. No epileptiform activity. EEG 03/05 - diffuse encephalopathy For repeat EEG today. Keprra started by neuro today. Respiratory: Acute hypoxic respiratory failure Aspiration pneumonitis [id number] aspiration Mod to large R effusion/small left pleural effusion Right upper lobe pulmonary nodules 5 and 10 mm. Recommend follow up CT in 3-6 months On AC //04/03. Continue with vent support keep sat >92% Bronchodilator therapy every 6 hours with albuterol every 2 hours for breakthrough Pulm toilet, trach care -- HOB at [address] chest 02/16 revealed moderate to large right pleural effusion and atelectasis/ small left pleural effusion. Status post placement of pigtail catheter right effusion 02/17. Removed 02/28 Tracheostomy 02/[address] Zurita, Cardiovascular: Atrial Fibrillation with Rapid Ventricular Response-early normal sinus rhythm Acute systolic heart failure Small pericardial effusion Echocardiogram 02/12 revealed EF 30-35%. Moderate TR. MARIA 53 mmHg. Echocardiogram 02/19 revealed EF 35%. Hypokinesis global. Small Mobile densities tricuspid and mitral valve ? vegetation question right MARIA 52 mmHg. On metoprolol 50 every 8 hours and hydralazine to 25 every 8 hours. Monitor HR and BP keep MAP>65mmhg Renal: Acute Kidney Injury secondary to ATN Monitor renal function, I/O's, avoid nephrotoxins. Cr: 1.[address] on NS@50ml/hr, d/c free water FEN/GI: Acute protein calorie malnutrition- severe C.Difficile Colitis Diarrhea Acute on chronic Aspiration Constipation Hyponatremia Hypophosphatemia TF with Jevity 1.5 goal 60 cc an hour Colace twice a day/Senokot twice a day. Miralax daily PEG tube by Dr. Cox Heme/ID: C. 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 Garcia following ABX per ID Completed 14 day course of flagyl 02/23 for aspiration and C diff. 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 Stop date March 20 Pertinent cultures 02/07 - blood cultures 2 - no growth 02/08 - stool -- C. difficile positive 02/09 - blood cultures 2 - no growth 02/12 - urine - no growth 02/13 - sputum - no growth 02/15 - blood cultures 2 - no growth 02/18 - urine - no growth 02/21 - blood no growth to date Endocrine: Hyperglycemia of critical illness (resolved) No sliding-scale ordered currently Prophylaxis: GI Prevacid DVT - SCD/pharmacological prophylaxis contraindicated with microhemorrhages. See neuro IV access: RUE PICC line. Geraldine Morgan [phone] is health care proxy. Daughter in charge of finances. Level 3 Olga Gaxiola MD March 09, 2017 11:45
[2017-03-09] MEDS: SODIUM CHLOR 0.9% 1000 ML INJ 1,000 ML IV SCH (12:39)
[2017-03-09] MEDS: levETIRAcetam 500 MG/NS 100 ML IV SCH ×4 (12:39→21:26)
[2017-03-09 18:26] LABS: HEMATOCRIT 22.6 % (39.0-51.0); REVIEW FLAG FINAL
--- NOTE | 2017-03-09 18:53 | HHI.PR ---
Review/Management Diagnosis multiple small strokes in different vascular territories with some with microscopic hemorrhage THe differential would inlcude septic emboli from possible SBE given the echo finding of a possible mitral valve vegetation vs emboli from afib possible focal seizures Plan would continue the aspirin. keppra started for possible focal sz. will also add cerebyx Diagnosis/Plan: Subjective Subjective Comments No acute events reported Active Medications Current Medications Medications (Trade) Dose Ordered Sig/Connor Route Start Time Stop Time Status Last Admin (Zofran Inj) 4 mg Q8H PRN IV PUSH 02/07/17 21:45 (Tylenol) 500 mg Q4H PRN PO 02/08/17 13:15 03/02/17 08:01 (Lactinex) 1 tab TID PO 02/09/17 13:00 03/09/17 16:26 (Peridex 0.12% Liq) 15 ml BID@08,20 MT 02/12/17 20:00 03/09/17 08:47 (D50w (Vial) Inj) 25 ml UNSCH PRN IV PUSH 02/12/17 14:30 02/24/17 18:16 (Aspirin Chew) 81 mg DAILY CHEW 02/13/17 09:00 03/09/17 08:46 Miscellaneous Information Patient in critical care unit? Ass... Q361D .XX 02/12/17 22:00 (Senna Liq) 8.8 mg BID PO 02/17/17 21:00 03/08/17 08:11 (Glycerin Adult Supp) 2 gm BID PRN RECTAL 02/17/17 10:15 (Tears Naturale Opth Soln) 1 drop Q8HR EACH EYE 02/17/17 14:00 03/09/17 15:02 Metoclopramide HCl 5 mg 5 mg Q8HR IV PUSH 02/19/17 14:00 03/09/17 15:01 (Vancomycin Consult Pharmacy) 0 ml @ 0 mls/hr UNSCH OTHER 02/21/17 13:15 (Colace Liq) 100 mg BID PO 02/22/17 09:00 03/09/17 08:46 (Trandate Inj) 10 mg Q1H PRN IV PUSH 02/24/17 08:00 03/02/17 08:01 (Apresoline Inj) 10 mg Q1H PRN IV PUSH 02/24/17 08:00 03/08/17 19:13 Nitroglycerin 2 inch 2 inch Q6H PRN TOPICAL 02/24/17 08:00 (Vancomycin Inj/ NS 500 ml Inj) 515 ml @ 250 mls/hr Q24H IV 02/28/17 12:00 03/20/17 23:00 Hold 03/05/17 12:17 (Santyl Oint) 1 applic DAILY TOPICAL 03/01/17 09:00 03/09/17 08:49 (Baciguent Oint) 1 applic Q12HR TOPICAL 02/28/17 21:00 03/09/17 08:49 (Miralax) 17 gm DAILY PO 03/01/17 09:00 03/09/17 08:46 (NS Flush) See Protocol DAILY IV FLUSH 03/02/17 09:00 03/09/17 08:48 (NS Flush) See Protocol UNSCH PRN IV FLUSH 03/01/17 19:15 03/03/17 06:08 (Heparin Central Flush) See Protocol DAILY IV FLUSH 03/02/17 09:00 03/09/17 08:45 (Heparin Central Flush) See Protocol UNSCH PRN IV FLUSH 03/01/17 19:15 (NS Flush) UNSCH PRN IV FLUSH 03/01/17 19:15 03/02/17 08:02 (Roxicodone Intensol Liq) 10 mg Q4HR PO 03/03/17 00:00 03/09/17 16:26 (SEROquel) 50 mg Q8HR PO 03/02/17 22:00 03/09/17 15:02 (Apresoline) 25 mg Q8HR PO 03/02/17 22:00 03/09/17 15:02 Fentanyl Citrate 50 mcg 50 mcg Q2H PRN IV PUSH 03/02/17 21:00 Potassium Chloride 100 ml @ 50 mls/hr Q2H PRN IV 03/03/17 14:30 (KCl 20 Meq Premix Inj) 100 ml @ 50 mls/hr Q2H PRN IV 03/03/17 14:30 Potassium Bicarb/ Potassium Chloride 50 meq 50 meq UNSCH PRN PO 03/03/17 14:30 Potassium Chloride 100 ml @ 25 mls/hr UNSCH PRN IV 03/03/17 14:30 Potassium Chloride 100 ml @ 50 mls/hr Q2H PRN IV 03/03/17 14:30 (Magnesium Sulfate Inj/NS Inj) 100 ml @ 50 mls/hr UNSCH PRN IV 03/03/17 14:30 Magnesium Oxide 800 mg 800 mg UNSCH PRN PO 03/03/17 14:30 (Magnesium Sulfate Inj/NS Inj) 100 ml @ 50 mls/hr UNSCH PRN IV 03/03/17 14:30 Potassium Phosphate 2000 mg 2,000 mg Q4H PRN PO 03/03/17 14:30 (Sodium Phosphate Inj/NS 250 ml Inj) 250 ml @ 42 mls/hr UNSCH PRN IV 03/03/17 14:30 03/03/17 17:44 (K-Phos) 2,000 mg UNSCH PRN PO/TUBE 03/03/17 14:30 (Lopressor) 50 mg Q8HR PO 03/07/17 22:00 03/09/17 15:02 Lansoprazole 30 mg 30 mg DAILY NG 03/08/17 09:00 03/09/17 08:48 Levetriacetam 500 mg/Sodium Chloride 105 ml @ 420 mls/hr Q12H IV 03/09/17 11:00 03/09/17 12:39 Sodium Chloride 1,000 ml @ 50 mls/hr Q20H IV 03/09/17 12:00 03/09/17 12:39 (Maxipime Inj/NS Inj) 100 ml @ 200 mls/hr Q24H IV 03/10/17 04:00 03/20/17 04:01 Allergies Allergies Coded Allergies No Known Allergies (Verified11/22/06) UNOBTAINABLE (Unverified02/09/17) Exam I&O / VS 03/08/17 03/08/17 03/09/17 15:00 23:00 07:00 Intake Total 1048 ml 903 ml 774 ml Output Total 800 ml 542 ml 485 ml Balance 248 ml 361 ml 289 ml IV Total 414 ml 412 ml 181 ml Tube Feeding 434 ml 431 ml 493 ml Other 200 ml 60 ml 100 ml Output Urine Total 800 ml 542 ml 485 ml # Bowel Movements 1 0 1 Vital Signs Date Time Temp Pulse Resp B/P Pulse Ox O2 Delivery O2 Flow Rate FiO2 03/09/17 18:00 94 03/09/17 17:26 18 5/5/17 17:12 100 35 03/09/17 16:00 99.0 86 19 117/63 100 03/09/17 16:00 35 03/09/17 16:00 86 03/09/17 14:00 105 03/09/17 13:48 100 35 03/09/17 12:01 99.2 99 17 150/70 100 03/09/17 12:00 99 03/09/17 12:00 35 03/09/17 10:00 96 03/09/17 09:13 100 35 03/09/17 09:13 35 03/09/17 08:00 91 03/09/17 08:00 99.1 91 18 155/74 100 03/09/17 08:00 35 03/09/17 06:00 95 03/09/17 04:15 100 35 03/09/17 04:00 97 03/09/17 04:00 99.2 97 19 137/76 98 03/09/17 04:00 35 03/09/17 02:00 100 03/09/17 01:30 100 35 03/09/17 00:00 97 03/09/17 00:00 99.3 97 21 136/63 98 03/09/17 00:00 35 03/08/17 22:28 100 35 03/08/17 22:00 92 03/08/17 20:48 100 35 03/08/17 20:00 106 03/08/17 20:00 99.2 106 24 131/86 100 03/08/17 20:00 35 Exam Comments very lethargic does not follow commands Pupils equal Motor--has intermittent twitching of left arm, not right Objective Micro and Labs Laboratory Tests Test 03/09/17 03/09/17 04:42 18:17 White Blood Count 7.8 Red Blood Count 2.53 Hemoglobin 7.6 7.6 Hematocrit 22.4 22.6 Mean Corpuscular Volume 88.8 Mean Corpuscular Hemoglobin 30.1 Mean Corpuscular Hemoglobin 34.0 Concent Red Cell Distribution Width 15.7 Platelet Count 300 Mean Platelet Volume 9.1 Sodium Level 137 Potassium Level 4.2 Chloride Level 102 Carbon Dioxide Level 27.9 Anion Gap 7 Blood Urea Nitrogen 33 Creatinine 1.79 Estimat Glomerular Filtration 44 Rate Random Glucose 133 Calcium Level 7.7 Phosphorus Level 2.7 Magnesium Level 2.1 Darius Avalos PhD March 09, 2017 18:53
[2017-03-09] MEDS ORDERED: FOSPHENYTOIN INJ 1,000 MGPE in SODIUM CHLORIDE 0.9% INJ 50 ML IV ONE (19:30)
[2017-03-09] MEDS ORDERED: FOSPHENYTOIN SODIUM 100 MG PE/2 ML VIAL IM SCH (22:00)
[2017-03-10] VITALS (36 sets, daily range): BP systolic 112–176; BP diastolic 71–96; PULSE 80–108; RESP 15–25; TEMP 97.6–98.4; O2SAT 93–100
[2017-03-10] MEDS: oxyCODONE HCL ORAL CONC 20 MG/ML SYRINGE PO SCH ×6 (00:39→20:47)
[2017-03-10] MEDS: RESP: ALBUTEROL 2.5 MG/IPRATROPIUM 0.5 MG NEB (SCH) NEB ×5 (02:52→23:56)
[2017-03-10] MEDS: FOSPHENYTOIN SODIUM 100 MG PE/2 ML VIAL IV SCH ×3 (04:20→20:49)
[2017-03-10] MEDS: CEFEPIME INJ 2,000 MG in SODIUM CHLORIDE 0.9% INJ 100 ML IV SCH (04:20)
[2017-03-10] MEDS: hydrALAZINE HCL 25 MG TAB PO SCH ×3 (04:25→20:48)
[2017-03-10] MEDS: METOPROLOL TARTRATE 50 MG TAB PO SCH ×3 (04:26→20:48)
[2017-03-10] MEDS: QUEtiapine FUMARATE 25 MG TAB PO SCH ×3 (04:26→20:48)
[2017-03-10] MEDS: METOCLOPRAMIDE HCL 10 MG/2 ML VIAL IV PUSH SCH ×3 (04:26→20:47)
[2017-03-10] MEDS: ARTIFICIAL TEARS OPTH SOLN 15 ML BTL EACH EYE SCH ×3 (04:27→20:48)
[2017-03-10] MEDS: SODIUM CHLOR 0.9% 1000 ML INJ 1,000 ML IV SCH (04:27)
[2017-03-10 06:08] LABS: AUTOMATED NEUTROPHIL # 4.9 TH/MM3 (1.8-7.7); BASOPHIL % 0.5 % (0.0-2.0); EOSINOPHIL # 0.8 TH/MM3 (0-0.4); EOSINOPHIL % 10.3 % (0.0-4.0); HEMO FLAGS DIFF FINAL; LYMPH % 11.5 % (9.0-44.0); LYMPHOCYTE # 0.9 TH/MM3 (1.0-4.8); MEAN CELL VOLUME 88.4 FL (80.0-100.0); MEAN CORPUSCULAR HEMOGLOBIN 30.7 PG (27.0-34.0); MEAN CORPUSCULAR HGB CONC 34.7 % (32.0-36.0); MONO % 12.4 % (0.0-8.0); NEUT % 65.3 % (16.0-70.0); PLATELET COUNT 320 TH/MM3 (150-450); RED CELL DISTRIBUTION WIDTH 15.7 % (11.6-17.2); WHITE BLOOD COUNT 7.5 TH/MM3 (4.0-11.0)
[2017-03-10 06:31] LABS: BICARBONATE 27.4 MEQ/L (21.0-32.0); POTASSIUM 4.6 MEQ/L (3.5-5.1)
--- NOTE | 2017-03-10 08:21 | MG ---
cc: RICKEY BELLO Lab No: [id number] Date: 03/10/2017 Age: Sex: M Race: FINDINGS: Intubated, would not follow commands, stumbling, respiratory distress, dementia, Oxycodone, Seroquel, Aspirin. PROCEDURE: 4-5 Hz 60 microvolt slowing is seen diffusely. There is a phase reversing spike over the right parietal and posterior temporal region at epoch 20, and some posterior sharp waves are seen bilaterally with phase reverse over the posterior temporal head regions bilaterally, some almost posterior triphasic type waves are noted bilaterally also, and also sometimes seen more anteriorly. A small phase reversing spike is seen at the right mid temporal region at epoch 37 on the bipolar montage. No prolonged seizures are noted. Photic stimulation was performed without significant posterior driving and EEG looks more of a metabolic type and the sharps go away as the electroencephalogram goes on. Some muscle artifact is seen, some left arm jerks are noted which just shows a lot of muscle artifact, starting at epoch 94 and I do not see any seizure activity with that he has a clinched left arm twitching. IMPRESSION An abnormal EEG looks like metabolic encephalopathy but there is some right greater then left posterior and mid temporal spikes noted which could indicate underlying seizure focus in these regions. Clinical correlation is needed. A generalized shaking episode or a left arm jerking was seen but I did not see any definite seizure activity with that. Photic stimulation was performed without any significant posterior driving. MD FRANCINE Smith/jordon /7:39 AM /8:11 AM
[2017-03-10] MEDS: levETIRAcetam 500 MG/NS 100 ML IV SCH ×4 (09:18→22:18)
[2017-03-10] MEDS: LACTOBACILLUS ACIDOPHILUS TAB PO SCH ×3 (09:18→17:34)
[2017-03-10] MEDS: BACITRACIN TOP OINT 15 GM TUBE TOPICAL SCH ×2 (09:18→20:48)
[2017-03-10] MEDS: ASPIRIN 81 MG CHEW TAB CHEW SCH (09:18)
[2017-03-10] MEDS: LANSOPRAZOLE SOLUTAB 30 MG TAB NG SCH (09:18)
[2017-03-10] MEDS: CHLORHEXIDINE 0.12% (ORAL KIT) 15 ML CUP MT SCH ×2 (09:18→20:00)
[2017-03-10] MEDS: COLLAGENASE OINT 30 GM TUBE TOPICAL SCH (09:19)
[2017-03-10] MEDS: SENNOSIDES SYRUP 8.8 MG/5 ML CUP PO SCH ×2 (09:19→20:48)
[2017-03-10] MEDS: DOCUSATE SODIUM 100 MG/10 ML UDC PO SCH ×2 (09:19→20:48)
[2017-03-10] MEDS: POLYETHYLENE GLYCOL 17 GM PKG PO SCH (09:19)
[2017-03-10] MEDS: SODIUM CHLORIDE 0.9% FLUSH 10 ML FLUSH IV FLUSH SCH (09:20)
--- NOTE | 2017-03-10 11:05 | HHI.PR ---
Objective Vital Signs Date Time Temp Pulse Resp B/P Pulse Ox O2 Delivery O2 Flow Rate FiO2 03/10/17 10:08 100 T-piece 6.00 35 03/10/17 08:00 35 03/10/17 07:26 100 35 03/10/17 06:00 91 03/10/17 04:32 100 35 03/10/17 04:00 83 03/10/17 04:00 98.1 83 15 147/96 100 03/10/17 04:00 35 03/10/17 02:00 85 03/10/17 00:17 100 35 03/10/17 00:00 35 03/10/17 00:00 97.8 92 18 122/71 100 03/10/17 00:00 87 03/09/17 22:00 96 03/09/17 21:00 100 35 03/09/17 20:00 99 03/09/17 20:00 35 03/09/17 20:00 98.0 99 21 173/92 100 03/09/17 18:00 94 03/09/17 17:26 18 03/09/17 17:12 100 35 03/09/17 16:00 99.0 86 19 117/63 100 03/09/17 16:00 35 03/09/17 16:00 86 03/09/17 14:00 105 03/09/17 13:48 100 35 03/09/17 12:01 99.2 99 17 150/70 100 03/09/17 12:00 99 03/09/17 12:00 35 I/O 03/09/17 03/09/17 03/09/17 03/10/17 03/10/17 03/10/17 07:00 15:00 23:00 07:00 15:00 23:00 Intake Total 774 ml 765 ml 887 ml 875 ml Output Total 485 ml 450 ml 501 ml 300 ml Balance 289 ml 315 ml 386 ml 575 ml IV Total 181 ml 217 ml 447 ml 460 ml Tube Feeding 493 ml 448 ml 380 ml 375 ml Tube Irrigant 60 ml 40 ml Other 100 ml 100 ml Output Urine Total 485 ml 450 ml 500 ml 300 ml Stool Total 1 ml Bladder Scan Volume Amount 176 ml 176 ml 176 ml # Bowel Movements 1 0 Result Diagram: 03/10/17 0445 03/10/17 0445 Objective Remarks obtunded no jerking no sz noted by nurse toes down bilat Assessment and Plan Assessment and Plan imp dil 10 free dil 14.7 eeg very active bitemp spikes recheck in am consider add on pbarb no large cva shlould be more awake? Jorge Luis Vo MD March 10, 2017 11:05
[2017-03-10] MEDS: hydrALAZINE HCL 20 MG/ML VIAL IV PUSH PRN (12:08)
--- NOTE | 2017-03-10 12:41 | HHI.CCPN ---
Subjective Remarks/Hospital Course This is a 86yM who presented from home with altered mental status and end-stage dementia. His hospital course has been complicated by C. Diff and pneumonia for which he is on appropriate therapy. He has been noted to have wuwyw-[id number]-ukzqcto aspiration during this hospital stay and has been NPO. Today, a rapid response was called for acute respiratory distress and hypoxia. I was called by Dr. Velez at the rapid response. He believe this is an aspiration event given the patient's clinical history. I immediately went and evaluated the patient. He is labored and in distress. his spo2 is 93% on non-rebreather. He is also in what appears to be new-onset atrial fibrillation with RVR and a HR 160s. Brief review of the pertinent laboratory data demonstrate worsening acute kidney injury, worsening anion-gap metabolic acidosis. Critical care medicine is consulted to evaluate and manage his severe respiratory distress and afib RVR. Unfortunately, the patient is obtunded and cannot provide any additional history. 02/13: no clinical improvements. remains in multiorgan system failure. diltiazem drip weaned to off, but remains on phenylephrine. talked with nephrology who feel clinically, despite some element of JVD, that patient is clinically intravascularly hypovolemic and they recommend gentle ivf hydration, which I am ok with as a trial. mental status poor. kidney injury persists. palliative involved. apparently daughter is not health care surrogate legally, but has been making decisions in the outpatient setting. multiple disagreements within the family. appreciate palliative involvement. 02/14: Renal function continues to worsen and today 57/4.1. D/w Nephrology. If family wants everything done, will need to proceed with HD. Tmax 101.1. ID following 02/15: Remains critically ill, did not tolerate brief CPAP trial. CXR shows mod to large R pl effusion. MAXIMUM TEMPERATURE 100.5. Creatinine slightly improved with urine output more than 1.4 L 02/16: Patient remains intubated, lightly sedated.. Did not tolerate C-peptide yesterday due to tachypnea. CT of the chest shows moderately large right effusion plan for thoracentesis 02/17: Tmax 100.7. No bowel movement since 02/12. On sedation vacation withdrawals but does not follow commands. Tolerating tube feeds at goal. 02/18: Afebrile. One bowel movement overnight. Tolerating tube feeding. Placement of 10 Romansh pigtail catheter with 600 cc likely transudative effusion. Tachycardic this AM. 02/19: Currently down for CT abdomen/pelvis with distended abdomen. Also MRA brain/neck with acute/subacute bifrontal CVA. Neurology consult pending. Will likely need tracheostomy. 02/20: Noted emesis last night [address] abdomen/pelvis unremarkable. Moderate gastric output. Started on Reglan. Positive BM. 02/21: Afebrile. Tolerating trickle feeds. One bowel movement. Noted echocardiogram report yesterday. Discussed with Dr. Garcia - blood cultures 2, vancomycin. Reassess in a.m.. Attempting to obtain consent for tracheostomy with . 02/22: Neuro exam unchanged. Mental status will not permit extubation. UO adequate, creat improving. Tracheostomy tomorrow 02/23: Creat continues to improve, no change in mentation. Trach with Parminder today, GI consulted for PEG placement. 02/24: Afebrile. Status post tracheostomy by Dr. Zurita yesterday. Unable to replace gastric tube secondary to bleeding. Plan for PEG on Sunday. 02/25: Currently afebrile. Tracheostomy without bleeding. Hypertensive requiring when necessary's. Plan for PEG Monday 02/26: Afebrile. Check yesterday was unpacked last night. Repacked today. On sedation. Plan for PEG today. 02/27: Afebrile. Chest without bleeding. Continues to be on sedation due to agitation. PEG tube yesterday without competition. Plan remove chest tube today. 02/28: Resting currently in bed. No change in neurological status. Tracheostomy without bleeding. No acute issues. 03/01: Afebrile. More tremulous this a.m. upon removal of fentanyl drip. Currently on PSV trial. Positive BM 2. Tolerating tube feeds at 35 cc an hour. Neurological status unchanged. 03/02: Tmax 100.7. Currently 98.9. One bowel movement yesterday. Tolerating tube feeds at 40 cc an hour. Becomes agitated with removal of fentanyl drip. 03/03 WBC 15.3. Afebrile. On vanc and cefepime per ID. Tolerating CPAP 08/09 with RSBI 40s 03/04 Diuresed net -1.1 L yesterday. Tolerating C Pap 10 over 5 very well and appears can wean further. 03/05: continues to diurese well. still tolerates cpap. awaiting placement. 03/06: Cr slightly worse. likely at dry weight. still tolerating cpap, weaning down support. not ready for t-piece yet, but some improvement. [id number] review today with [employer]. I do not see any barriers to transfer to LTAC. patient does not have any additional inpatient medical needs. 03/07: Afebrile. On PSV trials today. Tolerating tube feeding. Positive bowel movement. Neurological status unchanged. 03/08: Afebrile. Tolerating tube feeds. Currently on T piece. Neurological status unchanged. Off all sedative drips 03/09 No acute events overnight. On ventilator via trach, afebrile. On no drips. Cr: 1.79 today from 1.69. Subjective: 03/10: No acute events overnight. Seizure activity yesterday and started on Dilantin per Dr. Avalos. Tolerating diet. Positive BM. Objective Vital Signs Date Time Temp Pulse Resp B/P Pulse Ox O2 Delivery O2 Flow Rate FiO2 03/10/17 12:00 100 T-Piece 8.00 35 03/10/17 12:00 100 03/10/17 11:30 21 03/10/17 11:00 142/76 03/10/17 08:00 97.7 Intake and Output 03/09/17 03/09/17 03/10/17 08:00 16:00 00:00 Intake Total 774 ml 765 ml 887 ml Output Total 485 ml 450 ml 501 ml Balance 289 ml 315 ml 386 ml Result Diagram: 03/10/17 0445 03/10/17 0445 Imaging Last Impressions Chest X-Ray 03/03/17 0600 Signed Impressions: Service Date/Time: Friday, March 03, 2017 05:06 - CONCLUSION: No significant change. Tra Carroll MD Neck Magnetic Resonance Angiography 02/19/17 0000 Signed Impressions: Service Date/Time: Sunday, February 19, 2017 09:18 - CONCLUSION: 1. 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 Left vertebral emanates directly from the arch. 2. Otherwise, cervical vessels are all patent with no significant stenosis. Patient is slightly right vertebral dominant distally. Robbie Huggins MD Head Magnetic Resonance Angiography 02/19/17 0000 Signed Impressions: Service Date/Time: Sunday, February 19, 2017 09:18 - CONCLUSION: 1. 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 Intracranial vessels are otherwise patent. 2. No aneurysmal disease. 3. Anatomic variant of the grand traverse of [place] as above. Patient is right vertebral dominant. Robbie Huggins MD Chest CT 02/16/17 0000 Signed Impressions: Service Date/Time: Thursday, February 16, 2017 13:26 - CONCLUSION: 1. Moderate to large right and small left pleural effusion with associated compressive atelectasis. There additionally is airspace consolidation in the right lower lobe. 2. Small pericardial effusion. 3. There are 2 nodules in the right upper lobe measuring 5 mm and 10 mm. Suggest attention to these at followup imaging. Tra Ma MD Brain MRI 02/16/17 0000 Signed Impressions: Service Date/Time: Thursday, February 16, 2017 13:44 - CONCLUSION: Atrophy and extensive white matter disease as well as micro-bleeds the route the cerebral hemispheres and cerebellum. Punctate foci of acute infarction are suspected within the bilateral frontal white matter as described above. Scott Garcia MD Abdomen/Pelvis CT 02/16/17 0000 Signed Impressions: Service Date/Time: Thursday, February 16, 2017 13:26 - CONCLUSION: 1. Diffuse body wall edema, bilateral effusions, pericardial effusion and lower lobe atelectasis and consolidation. 2. Atherosclerosis. Scott Garcia MD Abdomen X-Ray 02/15/17 0000 Signed Impressions: Service Date/Time: February 11:42 - CONCLUSION: Nonspecific abdomen appearance. Tra Garibay MD Head CT 02/07/171946 Signed Impressions: Service Date/Time: Tuesday, February 07, 2017 20:03 - CONCLUSION: No acute intracranial injury Tra Garibay MD Objective Remarks GENERAL: 86-year-old male, currently on ventilator via tracheostomy in no acute distress SKIN: Warm and dry. No rash HEAD: Atraumatic. Normocephalic. EYES: Pupils equal and round about 3-4 mm bilaterally and reactive. No scleral icterus. No injection or drainage. ENT: No nasal bleeding or discharge. Mucous membranes pink and moist. Oropharynx without erythema. Tracheostomy site is clean dry and intact with no drainage NECK: Trachea midline. Minimal JVD. CARDIOVASCULAR: RRR. S1, S2. No S4. Faint 1 out of 6 diastolic murmur appreciated RESPIRATORY: Few crackles in bases bilaterally and symmetrical. No wheeze GASTROINTESTINAL: Abdomen slightly protuberant . Nontender. PEG tube site is clean dry and intact. Tolerating tube feeds : Positive scrotal edema. MUSCULOSKELETAL: Extremities with 1-2+ upper and lower extremity pitting edema. No obvious deformities. NEUROLOGICAL: Some facial grimacing. Withdraws all extremities. Procedures None A/P Assessment and Plan Neuro/Psych: Acute metabolic encephalopathy End-stage dementia Right TELEPHONER high-grade stenosis Oxycodone 10 mg q 4hours scheduled. Seroquel 50 milligrams by mouth q8. CT head 02/07 negative for acute disease MRI brain 02/16 revealed increased signal intensity in the bilateral centrum semi -ovale and periventricular white matter, remote basal ganglia infarcts bilaterally and periventricular punctuate blooming micro-bleeds throughout. 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 Left vertebral takes off from aortic arch Neurology consult Dr. Avalos appreciated. Noted echo 02/12 no vegetations. 02/19 revealed 2 x 4 mm mitral valve leaflet and tricuspid valve lateral leaflet likely vegetation. Not a anticoagulation candidate per neurology due to micro-hemorrhages. Recommended repeat MRI in 4-6 weeks resolution of micro-hemorrhages/rule out septic emboli before initiation anticoagulation Continue aspirin 81 mg daily EEG 02/16 reveals moderate to severe encephalopathy. No epileptiform activity. EEG 03/05 - diffuse encephalopathy EEG 03/09 completed. Metabolic encephalopathy. Right greater than left posterior and mid temporal region with possible epileptiform activity. No Seizure activity with left arm twitching. Clinical correlation recommended. Currently on Keppra 500 twice a day and Dilantin 100 3 times a day Respiratory: Acute hypoxic respiratory failure Aspiration pneumonitis Avalj-gl-tzrumaj aspiration Mod to large R effusion/small left pleural effusion Right upper lobe pulmonary nodules 5 and 10 mm. Recommend follow up CT in 3-6 months On AC 16///. Currently on T piece trial at 35% Continue with vent support keep sat >92% Bronchodilator therapy every 6 hours with albuterol every 2 hours for breakthrough Pulm toilet, trach care -- HOB at [address] chest 02/16 revealed moderate to large right pleural effusion and atelectasis/ small left pleural effusion. Status post placement of pigtail catheter right effusion 02/17. Removed 02/28 Tracheostomy 02/[address] Zurita, Cardiovascular: Atrial Fibrillation with Rapid Ventricular Response-early normal sinus rhythm Acute systolic heart failure Small pericardial effusion Echocardiogram 02/12 revealed EF 30-35%. Moderate TR. MARIA 53 mmHg. Echocardiogram 02/19 revealed EF 35%. Hypokinesis global. Small Mobile densities tricuspid and mitral valve ? vegetation question right MARIA 52 mmHg. On metoprolol 50 every 8 hours and hydralazine to 25 every 8 hours. Monitor HR and BP keep MAP>65mmhg Renal: Acute Kidney Injury secondary to ATN Monitor renal function, I/O's, avoid nephrotoxins. Cr: Currently 1.[address] on NS@50ml/hr Add free water 100 3 times a day FEN/GI: Acute protein calorie malnutrition- severe C.Difficile Colitis Diarrhea Acute on chronic Aspiration Constipation Hyponatremia Hypophosphatemia TF with Jevity 1.5 goal 60 cc an hour Colace twice a day/Senokot twice a day. Miralax daily PEG tube by Dr. Cox Heme/ID: C. 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 Garcia following ABX per ID Completed 14 day course of flagyl 02/23 for aspiration and C diff. 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 Stop date March 20 Pertinent cultures 02/07 - blood cultures 2 - no growth 02/08 - stool -- C. difficile positive 02/09 - blood cultures 2 - no growth 02/12 - urine - no growth 02/13 - sputum - no growth 02/15 - blood cultures 2 - no growth 02/18 - urine - no growth 02/21 - blood no growth to date Endocrine: Hyperglycemia of critical illness (resolved) No sliding-scale ordered currently Prophylaxis: GI Prevacid DVT - SCD/pharmacological prophylaxis contraindicated with microhemorrhages. See neuro IV access: RUE PICC line. Geraldine Morgan [phone] is health care proxy. Daughter in charge of finances. Level 2 Gerry Mike MD March 10, 2017 12:41
[2017-03-11] VITALS (39 sets, daily range): BP systolic 120–174; BP diastolic 70–94; PULSE 90–109; RESP 17–25; TEMP 98.2–99.3; O2SAT 100
[2017-03-11] MEDS: oxyCODONE HCL ORAL CONC 20 MG/ML SYRINGE PO SCH ×7 (00:23→22:48)
[2017-03-11] MEDS: RESP: ALBUTEROL 1.25 MG/3 ML NEB (PRN) NEB (03:25)
[2017-03-11] MEDS: hydrALAZINE HCL 20 MG/ML VIAL IV PUSH PRN (03:38)
[2017-03-11] MEDS: SODIUM CHLOR 0.9% 1000 ML INJ 1,000 ML IV SCH (03:49)
[2017-03-11] MEDS: CEFEPIME INJ 2,000 MG in SODIUM CHLORIDE 0.9% INJ 100 ML IV SCH (03:49)
[2017-03-11] MEDS: FOSPHENYTOIN SODIUM 100 MG PE/2 ML VIAL IV SCH ×3 (03:53→20:35)
[2017-03-11] MEDS: QUEtiapine FUMARATE 25 MG TAB PO SCH ×3 (05:23→20:36)
[2017-03-11] MEDS: hydrALAZINE HCL 25 MG TAB PO SCH ×3 (05:23→20:36)
[2017-03-11] MEDS: METOCLOPRAMIDE HCL 10 MG/2 ML VIAL IV PUSH SCH ×3 (05:23→20:36)
[2017-03-11 05:25] LABS: MAGNESIUM 2.2 MG/DL (1.5-2.5); MEAN CELL VOLUME 89.7 FL (80.0-100.0); MEAN CORPUSCULAR HGB CONC 33.5 % (32.0-36.0); PLATELET COUNT 345 TH/MM3 (150-450); POTASSIUM 4.7 MEQ/L (3.5-5.1); RED BLOOD COUNT 2.67 MIL/MM3 (4.50-5.90); REVIEW FLAG FINAL; WHITE BLOOD COUNT 9.5 TH/MM3 (4.0-11.0)
[2017-03-11] MEDS: ARTIFICIAL TEARS OPTH SOLN 15 ML BTL EACH EYE SCH ×3 (05:25→22:00)
[2017-03-11] MEDS: METOPROLOL TARTRATE 50 MG TAB PO SCH ×4 (05:25→22:48)
[2017-03-11] MEDS: RESP: ALBUTEROL 2.5 MG/IPRATROPIUM 0.5 MG NEB (SCH) NEB ×3 (07:30→21:23)
[2017-03-11] MEDS: CHLORHEXIDINE 0.12% (ORAL KIT) 15 ML CUP MT SCH ×2 (08:29→20:00)
[2017-03-11] MEDS: LACTOBACILLUS ACIDOPHILUS TAB PO SCH ×3 (08:30→18:01)
[2017-03-11] MEDS: DOCUSATE SODIUM 100 MG/10 ML UDC PO SCH ×2 (08:30→21:00)
[2017-03-11] MEDS: SENNOSIDES SYRUP 8.8 MG/5 ML CUP PO SCH ×2 (08:30→20:35)
[2017-03-11] MEDS: LANSOPRAZOLE SOLUTAB 30 MG TAB NG SCH (08:30)
[2017-03-11] MEDS: SODIUM CHLORIDE 0.9% FLUSH 10 ML FLUSH IV FLUSH SCH (08:30)
[2017-03-11] MEDS: POLYETHYLENE GLYCOL 17 GM PKG PO SCH (08:30)
[2017-03-11] MEDS: ASPIRIN 81 MG CHEW TAB CHEW SCH (08:30)
[2017-03-11] MEDS: COLLAGENASE OINT 30 GM TUBE TOPICAL SCH (08:32)
[2017-03-11] MEDS: BACITRACIN TOP OINT 15 GM TUBE TOPICAL SCH ×2 (08:33→21:00)
[2017-03-11] MEDS ORDERED: VANCOMYCIN INJ 1,250 MG in SODIUM CHLOR 0.9% 250 ML INJ 250 ML IV ONE (10:00)
--- NOTE | 2017-03-11 10:18 | RADRPT ---
EXAM DATE/TIME: 03/11/2017 09:40 [facility] COMPARISON: CHEST SINGLE AP, March 03, 2017, 5:06. INDICATIONS : Evaluate lung status. MEDICAL HISTORY : Sepsis. SURGICAL HISTORY : None. ENCOUNTER: Initial ACUITY: 1 day PAIN SCORE: Non-responsive. LOCATION: Bilateral chest FINDINGS: A single AP semierect view of the chest was obtained again demonstrates the tracheostomy tube in plac e. The right-sided PICC line is unchanged in appearance. Hazy opacity remains in the perihilar region s and both lung bases with blunting of costophrenic angles consistent with effusions. The heart size appears mildly prominent. There are overlying electrocardiogram leads. CONCLUSION: No significant change. Bilateral effusions. Hermilo Borrego MD on March 11, 2017 at 10:15 Board Certified Radiologist. This report was verified electronically.
--- NOTE | 2017-03-11 10:21 | HHI.CCPN ---
Subjective Remarks/Hospital Course This is a 86yM who presented from home with altered mental status and end-stage dementia. His hospital course has been complicated by C. Diff and pneumonia for which he is on appropriate therapy. He has been noted to have [id number] aspiration during this hospital stay and has been NPO. Today, a rapid response was called for acute respiratory distress and hypoxia. I was called by Dr. Velez at the rapid response. He believe this is an aspiration event given the patient's clinical history. I immediately went and evaluated the patient. He is labored and in distress. his spo2 is 93% on non-rebreather. He is also in what appears to be new-onset atrial fibrillation with RVR and a HR 160s. Brief review of the pertinent laboratory data demonstrate worsening acute kidney injury, worsening anion-gap metabolic acidosis. Critical care medicine is consulted to evaluate and manage his severe respiratory distress and afib RVR. Unfortunately, the patient is obtunded and cannot provide any additional history. 02/13: no clinical improvements. remains in multiorgan system failure. diltiazem drip weaned to off, but remains on phenylephrine. talked with nephrology who feel clinically, despite some element of JVD, that patient is clinically intravascularly hypovolemic and they recommend gentle ivf hydration, which I am ok with as a trial. mental status poor. kidney injury persists. palliative involved. apparently daughter is not health care surrogate legally, but has been making decisions in the outpatient setting. multiple disagreements within the family. appreciate palliative involvement. 02/14: Renal function continues to worsen and today 57/4.1. D/w Nephrology. If family wants everything done, will need to proceed with HD. Tmax 101.1. ID following 02/15: Remains critically ill, did not tolerate brief CPAP trial. CXR shows mod to large R pl effusion. MAXIMUM TEMPERATURE 100.5. Creatinine slightly improved with urine output more than 1.4 L 02/16: Patient remains intubated, lightly sedated.. Did not tolerate C-peptide yesterday due to tachypnea. CT of the chest shows moderately large right effusion plan for thoracentesis 02/17: Tmax 100.7. No bowel movement since 02/12. On sedation vacation withdrawals but does not follow commands. Tolerating tube feeds at goal. 02/18: Afebrile. One bowel movement overnight. Tolerating tube feeding. Placement of 10 Welsh pigtail catheter with 600 cc likely transudative effusion. Tachycardic this AM. 02/19: Currently down for CT abdomen/pelvis with distended abdomen. Also MRA brain/neck with acute/subacute bifrontal CVA. Neurology consult pending. Will likely need tracheostomy. 02/20: Noted emesis last night [address] abdomen/pelvis unremarkable. Moderate gastric output. Started on Reglan. Positive BM. 02/21: Afebrile. Tolerating trickle feeds. One bowel movement. Noted echocardiogram report yesterday. Discussed with Dr. Garcia - blood cultures 2, vancomycin. Reassess in a.m.. Attempting to obtain consent for tracheostomy with . 02/22: Neuro exam unchanged. Mental status will not permit extubation. UO adequate, creat improving. Tracheostomy tomorrow 02/23: Creat continues to improve, no change in mentation. Trach with Parminder today, GI consulted for PEG placement. 02/24: Afebrile. Status post tracheostomy by Dr. Zurita yesterday. Unable to replace gastric tube secondary to bleeding. Plan for PEG on Sunday. 02/25: Currently afebrile. Tracheostomy without bleeding. Hypertensive requiring when necessary's. Plan for PEG Monday 02/26: Afebrile. Check yesterday was unpacked last night. Repacked today. On sedation. Plan for PEG today. 02/27: Afebrile. Chest without bleeding. Continues to be on sedation due to agitation. PEG tube yesterday without competition. Plan remove chest tube today. 02/28: Resting currently in bed. No change in neurological status. Tracheostomy without bleeding. No acute issues. 03/01: Afebrile. More tremulous this a.m. upon removal of fentanyl drip. Currently on PSV trial. Positive BM 2. Tolerating tube feeds at 35 cc an hour. Neurological status unchanged. 03/02: Tmax 100.7. Currently 98.9. One bowel movement yesterday. Tolerating tube feeds at 40 cc an hour. Becomes agitated with removal of fentanyl drip. 03/03 WBC 15.3. Afebrile. On vanc and cefepime per ID. Tolerating CPAP 08/09 with RSBI 40s 03/04 Diuresed net -1.1 L yesterday. Tolerating C Pap 10 over 5 very well and appears can wean further. 03/05: continues to diurese well. still tolerates cpap. awaiting placement. 03/06: Cr slightly worse. likely at dry weight. still tolerating cpap, weaning down support. not ready for t-piece yet, but some improvement. [id number] review today with [employer]. I do not see any barriers to transfer to LTAC. patient does not have any additional inpatient medical needs. 03/07: Afebrile. On PSV trials today. Tolerating tube feeding. Positive bowel movement. Neurological status unchanged. 03/08: Afebrile. Tolerating tube feeds. Currently on T piece. Neurological status unchanged. Off all sedative drips 03/09 No acute events overnight. On ventilator via trach, afebrile. On no drips. Cr: 1.79 today from 1.69. 03/10: No acute events overnight. Seizure activity yesterday and started on Dilantin per Dr. Avalos. Tolerating diet. Positive BM. Subjective: 03/11: IV fluids discontinued overnight. Patient had emesis overnight. KUB with nonspecific bowel gas pattern. Tube feeds back at goal. Back on T piece trial. Neurologically unchanged. Objective Vital Signs Date Time Temp Pulse Resp B/P Pulse Ox O2 Delivery O2 Flow Rate FiO2 03/11/17 07:30 100 35 03/11/17 06:00 104 03/11/17 04:00 Mechanical Ventilator 8.00 03/11/17 04:00 98.2 18 148/70 Intake and Output 03/10/17 03/10/17 03/11/17 08:00 16:00 00:00 Intake Total 875 ml 1190 ml 740 ml Output Total 300 ml 650 ml 400 ml Balance 575 ml 540 ml 340 ml Result Diagram: 03/11/17 0400 03/11/17 0400 Imaging Last Impressions Chest X-Ray 03/03/17 0600 Signed Impressions: Service Date/Time: Friday, March 03, 2017 05:06 - CONCLUSION: No significant change. Tra Carroll MD Neck Magnetic Resonance Angiography 02/19/17 0000 Signed Impressions: Service Date/Time: Sunday, February 19, 2017 09:18 - CONCLUSION: 1. 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 Left vertebral emanates directly from the arch. 2. Otherwise, cervical vessels are all patent with no significant stenosis. Patient is slightly right vertebral dominant distally. Robbie Huggins MD Head Magnetic Resonance Angiography 02/19/17 0000 Signed Impressions: Service Date/Time: Sunday, February 19, 2017 09:18 - CONCLUSION: 1. 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 Intracranial vessels are otherwise patent. 2. No aneurysmal disease. 3. Anatomic variant of the [place] as above. Patient is right vertebral dominant. Robbie Huggins MD Chest CT 02/16/17 0000 Signed Impressions: Service Date/Time: Thursday, February 16, 2017 13:26 - CONCLUSION: 1. Moderate to large right and small left pleural effusion with associated compressive atelectasis. There additionally is airspace consolidation in the right lower lobe. 2. Small pericardial effusion. 3. There are 2 nodules in the right upper lobe measuring 5 mm and 10 mm. Suggest attention to these at followup imaging. Tra Ma MD Brain MRI 02/16/17 0000 Signed Impressions: Service Date/Time: Thursday, February 16, 2017 13:44 - CONCLUSION: Atrophy and extensive white matter disease as well as micro-bleeds the route the cerebral hemispheres and cerebellum. Punctate foci of acute infarction are suspected within the bilateral frontal white matter as described above. Scott Garcia MD Abdomen/Pelvis CT 02/16/17 0000 Signed Impressions: Service Date/Time: Thursday, February 16, 2017 13:26 - CONCLUSION: 1. Diffuse body wall edema, bilateral effusions, pericardial effusion and lower lobe atelectasis and consolidation. 2. Atherosclerosis. Scott Garcia MD Abdomen X-Ray 02/15/17 0000 Signed Impressions: Service Date/Time: February 11:42 - CONCLUSION: Nonspecific abdomen appearance. Tra Garibay MD Head CT 02/07/171946 Signed Impressions: Service Date/Time: Tuesday, February 07, 2017 20:03 - CONCLUSION: No acute intracranial injury Tra Garibay MD Objective Remarks GENERAL: 86-year-old male, currently on ventilator via tracheostomy in no acute distress SKIN: Warm and dry. No rash HEAD: Atraumatic. Normocephalic. EYES: Pupils equal and round about 3-4 mm bilaterally and reactive. No scleral icterus. No injection or drainage. ENT: No nasal bleeding or discharge. Mucous membranes pink and moist. Oropharynx without erythema. Tracheostomy site is clean dry and intact with no drainage NECK: Trachea midline. Minimal JVD. CARDIOVASCULAR: RRR. S1, S2. No S4. Faint 1 out of 6 diastolic murmur appreciated RESPIRATORY: Few crackles in bases bilaterally and symmetrical. No wheeze GASTROINTESTINAL: Abdomen slightly protuberant . Nontender. PEG tube site is clean dry and intact. Tolerating tube feeds : Positive scrotal edema. MUSCULOSKELETAL: Extremities with 1-2+ upper and lower extremity pitting edema. No obvious deformities. NEUROLOGICAL: Some facial grimacing. Withdraws all extremities. Procedures None A/P Assessment and Plan Neuro/Psych: Acute metabolic encephalopathy End-stage dementia Right FISH TECHNOLOGIST high-grade stenosis Oxycodone 10 mg q 4hours scheduled. Seroquel 50 milligrams by mouth q8. CT head 02/07 negative for acute disease MRI brain 02/16 revealed increased signal intensity in the bilateral centrum semi -ovale and periventricular white matter, remote basal ganglia infarcts bilaterally and periventricular punctuate blooming micro-bleeds throughout. 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 Left vertebral takes off from aortic arch Neurology consult Dr. Avalos appreciated. Noted echo 02/12 no vegetations. 02/19 revealed 2 x 4 mm mitral valve leaflet and tricuspid valve lateral leaflet likely vegetation. Not a anticoagulation candidate per neurology due to micro-hemorrhages. Recommended repeat MRI in 4-6 weeks resolution of micro-hemorrhages/rule out septic emboli before initiation anticoagulation Continue aspirin 81 mg daily EEG 02/16 reveals moderate to severe encephalopathy. No epileptiform activity. EEG 03/05 - diffuse encephalopathy EEG 03/09 completed. Metabolic encephalopathy. Right greater than left posterior and mid temporal region with possible epileptiform activity. No Seizure activity with left arm twitching. Clinical correlation recommended. Currently on Keppra 500 twice a day and Dilantin 100 3 times a day Dilantin level 15.2 today Respiratory: Acute hypoxic respiratory failure Aspiration pneumonitis [id number] aspiration Mod to large R effusion/small left pleural effusion Right upper lobe pulmonary nodules 5 and 10 mm. Recommend follow up CT in 3-6 months On AC 16///. Currently on T piece trial at 35% Continue with vent support keep sat >92% Bronchodilator therapy every 6 hours with albuterol every 2 hours for breakthrough Pulm toilet, trach care -- HOB at [address] chest 02/16 revealed moderate to large right pleural effusion and atelectasis/ small left pleural effusion. Status post placement of pigtail catheter right effusion 02/17. Removed 02/28 Tracheostomy 02/[address] Zurita, Cardiovascular: Atrial Fibrillation with Rapid Ventricular Response-early normal sinus rhythm Acute systolic heart failure Small pericardial effusion Echocardiogram 02/12 revealed EF 30-35%. Moderate TR. MARIA 53 mmHg. Echocardiogram 02/19 revealed EF 35%. Hypokinesis global. Small Mobile densities tricuspid and mitral valve ? vegetation question right MARIA 52 mmHg. On metoprolol 50 every 6 hours and hydralazine to 25 every 8 hours. Monitor HR and BP keep MAP>65mmhg Renal: Acute Kidney Injury secondary to ATN Monitor renal function, I/O's, avoid nephrotoxins. Cr: Currently 1.75 free water 100 3 times a day FEN/GI: Acute protein calorie malnutrition- severe C.Difficile Colitis Diarrhea Acute on chronic Aspiration Constipation Hyponatremia Hypophosphatemia TF with Jevity 1.5 goal 60 cc an hour Colace twice a day/Senokot twice a day. Miralax daily PEG tube by Dr. Cox Heme/ID: C. 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 Garcia following ABX per ID Completed 14 day course of flagyl 02/23 for aspiration and C diff. 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 Stop date March 20 Pertinent cultures 02/07 - blood cultures 2 - no growth 02/08 - stool -- C. difficile positive 02/09 - blood cultures 2 - no growth 02/12 - urine - no growth 02/13 - sputum - no growth 02/15 - blood cultures 2 - no growth 02/18 - urine - no growth 02/21 - blood no growth to date Endocrine: Hyperglycemia of critical illness (resolved) No sliding-scale ordered currently Prophylaxis: GI Prevacid DVT - SCD/pharmacological prophylaxis contraindicated with microhemorrhages. See neuro IV access: RUE PICC line. Geraldine Morgan [phone] is health care proxy. Daughter in charge of finances. Level 2 Gerry Mike MD March 11, 2017 10:20 Gerry Mike MD March 11, 2017 10:20
--- NOTE | 2017-03-11 10:48 | RADRPT ---
EXAM DATE/TIME: 03/11/2017 09:46 [facility] COMPARISON: ABDOMEN KUB ONLY, February 19, 2017, 16:51. INDICATIONS : Evaluate for obstruction. Abdominal distention. MEDICAL HISTORY : None. SURGICAL HISTORY : None. ENCOUNTER: Initial ACUITY: 1 day PAIN SCORE: Non-responsive. LOCATION: Bilateral abdomen. FINDINGS: 2 AP supine views of the abdomen were obtained and demonstrate a gastrostomy tube in place projected over the left upper quadrant. Gas and stool is noted segmentally in the colon. There are multiple loo ps of nondilated air-containing small bowel in the midabdomen no evidence of free air on this supine study. There mild degenerative changes in the lumbar spine. Bilateral pleural effusions are noted. CONCLUSION: 1. Nonspecific, nonobstructive bowel gas pattern. 2. Gastrostomy tube now noted in place. 3. Bilateral pleural effusions. Hermilo Borrego MD on March 11, 2017 at 10:44 Board Certified Radiologist. This report was verified electronically.
[2017-03-11] MEDS ORDERED: BUMETANIDE INJ 1 MG/4 ML VIAL IV PUSH ONE (11:00)
[2017-03-11] MEDS ORDERED: ALBUMIN HUMAN 25% 25 GM/100 ML BAGP IV ONE (11:00)
[2017-03-11] MEDS: levETIRAcetam 500 MG/NS 100 ML IV SCH ×4 (11:11→22:49)
--- NOTE | 2017-03-11 16:26 | HHI.PR ---
Objective Vital Signs Date Time Temp Pulse Resp B/P Pulse Ox O2 Delivery O2 Flow Rate FiO2 03/11/17 16:00 35 03/11/17 16:00 100 Mechanical Ventilator 8.00 35 03/11/17 15:00 104 23 100 03/11/17 14:30 97 20 141/79 100 03/11/17 14:00 97 20 141/77 100 03/11/17 13:30 99 23 169/94 100 03/11/17 13:00 97 21 150/85 100 03/11/17 12:30 100 23 160/92 100 03/11/17 12:00 99.1 100 24 148/93 100 03/11/17 12:00 35 03/11/17 12:00 97 Mechanical Ventilator 8.00 35 03/11/17 11:30 105 23 154/79 100 03/11/17 11:00 102 21 154/88 100 03/11/17 10:56 100 T-piece 6.00 35 03/11/17 10:30 101 21 157/87 100 03/11/17 10:00 101 19 152/82 100 03/11/17 09:30 97 17 147/72 100 03/11/17 09:00 109 20 162/93 100 03/11/17 08:30 106 23 163/79 100 03/11/17 08:00 99 Mechanical Ventilator 8.00 35 03/11/17 08:00 35 03/11/17 08:00 99.3 107 23 162/83 100 03/11/17 07:30 100 35 03/11/17 06:00 100 35 03/11/17 06:00 104 03/11/17 04:06 100 35 03/11/17 04:00 35 03/11/17 04:00 98 03/11/17 04:00 100 Mechanical Ventilator 8.00 35 03/11/17 04:00 98.2 98 18 148/70 100 03/11/17 02:00 100 03/11/17 01:06 100 35 03/11/17 00:00 35 03/11/17 00:00 100 Mechanical Ventilator 8.00 35 03/11/17 00:00 97 03/11/17 00:00 98.7 97 25 151/86 100 03/10/17 22:05 100 35 03/10/17 22:00 90 03/10/17 20:00 35 03/10/17 20:00 98.4 94 19 133/76 100 03/10/17 20:00 100 Mechanical Ventilator 8.00 35 03/10/17 20:00 94 03/10/17 19:05 95 35 03/10/17 18:00 96 20 132/75 93 03/10/17 18:00 100 03/10/17 17:00 102 19 143/71 99 I/O 03/10/17 03/10/17 03/10/17 03/11/17 03/11/17 03/11/17 07:00 15:00 23:00 07:00 15:00 23:00 Intake Total 875 ml 1190 ml 740 ml 873 ml 760 ml Output Total 300 ml 650 ml 400 ml 450 ml 1400 ml Balance 575 ml 540 ml 340 ml 423 ml -640 ml Intake Oral 0 ml 0 ml IV Total 460 ml 642 ml 320 ml 462 ml 392 ml Tube Feeding 375 ml 548 ml 360 ml 351 ml 68 ml Albumin 100 ml Tube Irrigant 40 ml 60 ml 60 ml Other 200 ml Output Urine Total 300 ml 650 ml 400 ml 450 ml 1400 ml Bladder Scan Volume Amount 176 ml 176 ml # Bowel Movements 0 1 0 0 Result Diagram: 03/11/17 0400 03/11/17 0400 Objective Remarks obtunded unresponsive toes down bilat Assessment and Plan Assessment and Plan imp dil 15 free dil over 20 dec dose to 80 tid eeg very active bitemp spikes eeg today pend but prelim no better add on pbarb no large cva should be more awake? Jorge Luis Fuentes am, MD March 11, 2017 16:26
--- NOTE | 2017-03-11 18:39 | MG ---
cc: RICKEY BELLO Lab No: [id number] Date: Age: 86 Sex: M Race: HISTORY: 86-year-old man with abnormal EEG, dementia. MEDICATIONS: 1. Keppra 2. Seroquel. DESCRIPTION OF THE RECORDING: The recording shows again some sharps coming out of the right parietal head region. Bitemporal slow activity is noted. I would say that spikes seem a little bit better today and less prominent over the left temporal, right temporal, left parietal head region. It is a little bit improved from prior. Photic stimulation is full without significant posterior driving. IMPRESSION: Diffuse slowing consistent with a moderate diffuse encephalopathy with some sharp activity bilaterally in the temporoparietal head regions. I think it is a little bit better than it was prior. At this time, the right parietal seems to be a bit more active than the other regions and almost looks at times like a PLEDS or a BI-PLED activity. I would stop the Seroquel if he is still on that due to his sedation. MD FRANCINE Smith/LISA /6:22 PM /6:36 PM
[2017-03-12] VITALS (16 sets, daily range): BP systolic 91–167; BP diastolic 56–95; PULSE 80–105; RESP 15–27; TEMP 98.3–99.3; O2SAT 100
[2017-03-12] MEDS: oxyCODONE HCL ORAL CONC 20 MG/ML SYRINGE PO SCH (02:52)
[2017-03-12] MEDS: CEFEPIME INJ 2,000 MG in SODIUM CHLORIDE 0.9% INJ 100 ML IV SCH (02:53)
[2017-03-12] MEDS: FOSPHENYTOIN SODIUM 100 MG PE/2 ML VIAL IV SCH ×2 (02:53→13:25)
[2017-03-12 03:16] LABS: AUTOMATED NEUTROPHIL # 4.3 TH/MM3 (1.8-7.7); BASOPHIL # 0.1 TH/MM3 (0-0.2); BASOPHIL % 0.8 % (0.0-2.0); EOSINOPHIL # 0.7 TH/MM3 (0-0.4); EOSINOPHIL % 9.4 % (0.0-4.0); HEMATOCRIT 22.6 % (39.0-51.0); HEMO FLAGS DIFF FINAL; LYMPH % 14.5 % (9.0-44.0); MEAN CELL VOLUME 89.5 FL (80.0-100.0); MEAN CORPUSCULAR HEMOGLOBIN 30.2 PG (27.0-34.0); MEAN CORPUSCULAR HGB CONC 33.7 % (32.0-36.0); MONO % 13.8 % (0.0-8.0); NEUT % 61.5 % (16.0-70.0); PLATELET COUNT 298 TH/MM3 (150-450); RED BLOOD COUNT 2.53 MIL/MM3 (4.50-5.90); RED CELL DISTRIBUTION WIDTH 15.7 % (11.6-17.2)
[2017-03-12 03:38] LABS: ALT (GPT) 30 U/L (12-78); ANION GAP 6 MEQ/L (5-15); AST (GOT) 40 U/L (15-37); BICARBONATE 27.8 MEQ/L (21.0-32.0); BLOOD UREA NITROGEN 36 MG/DL (7-18); CHLORIDE 101 MEQ/L (98-107); GLOMERULAR FILTRATION RATE 45 ML/MIN (>89); MAGNESIUM 2.3 MG/DL (1.5-2.5); POTASSIUM 4.7 MEQ/L (3.5-5.1); SODIUM (NA) 135 MEQ/L (136-145)
[2017-03-12 03:46] LABS: ALKALINE PHOSPHATASE 109 U/L (45-117); FREE T3 1.25 PG/ML (2.18-3.98); FREE T4 1.03 NG/DL (0.76-1.46); PHENOBARBITAL LESS THAN 2.1 MCG/ML (15.0-40.0); TOTAL BILIRUBIN ADULT 0.3 MG/DL (0.2-1.0)
[2017-03-12 04:04] LABS: CREATINE KINASE 44 U/L (39-308)
[2017-03-12] MEDS: RESP: ALBUTEROL 2.5 MG/IPRATROPIUM 0.5 MG NEB (SCH) NEB ×4 (04:41→22:39)
[2017-03-12] MEDS: QUEtiapine FUMARATE 25 MG TAB PO SCH (05:17)
[2017-03-12] MEDS: METOCLOPRAMIDE HCL 10 MG/2 ML VIAL IV PUSH SCH ×3 (05:17→23:26)
[2017-03-12] MEDS: hydrALAZINE HCL 25 MG TAB PO SCH ×3 (05:17→23:26)
[2017-03-12] MEDS: METOPROLOL TARTRATE 50 MG TAB PO SCH ×4 (05:18→23:26)
[2017-03-12] MEDS: ARTIFICIAL TEARS OPTH SOLN 15 ML BTL EACH EYE SCH ×3 (05:18→22:00)
--- NOTE | 2017-03-12 05:59 | RADRPT ---
EXAM DATE/TIME: 03/12/2017 04:50 [facility] COMPARISON: CHEST SINGLE AP, March 11, 2017, 9:40. INDICATIONS : Shortness of breath, possible pulmonary disease. MEDICAL HISTORY : Unable to obtain. SURGICAL HISTORY : Unable to obtain. ENCOUNTER: Subsequent ACUITY: 1 month PAIN SCORE: Non-responsive. LOCATION: Bilateral chest FINDINGS: A single portable frontal view the chest shows no interval change. Bilateral pleural effusions are no loli. Heart is normal in size. No infiltrates appreciated. Right-sided PICC line. Tracheostomy tube. CONCLUSION: Unchanged bowel effusions. Kaiser Valiente Jr., MD on March 12, 2017 at 5:56 Board Certified Radiologist. This report was verified electronically.
--- NOTE | 2017-03-12 08:21 | HHI.CCPN ---
Subjective Remarks/Hospital Course This is a 86yM who presented from home with altered mental status and end-stage dementia. His hospital course has been complicated by C. Diff and pneumonia for which he is on appropriate therapy. He has been noted to have rjyqn-qh-dgirbks aspiration during this hospital stay and has been NPO. Today, a rapid response was called for acute respiratory distress and hypoxia. I was called by Dr. Velez at the rapid response. He believe this is an aspiration event given the patient's clinical history. I immediately went and evaluated the patient. He is labored and in distress. his spo2 is 93% on non-rebreather. He is also in what appears to be new-onset atrial fibrillation with RVR and a HR 160s. Brief review of the pertinent laboratory data demonstrate worsening acute kidney injury, worsening anion-gap metabolic acidosis. Critical care medicine is consulted to evaluate and manage his severe respiratory distress and afib RVR. Unfortunately, the patient is obtunded and cannot provide any additional history. 02/13: no clinical improvements. remains in multiorgan system failure. diltiazem drip weaned to off, but remains on phenylephrine. talked with nephrology who feel clinically, despite some element of JVD, that patient is clinically intravascularly hypovolemic and they recommend gentle ivf hydration, which I am ok with as a trial. mental status poor. kidney injury persists. palliative involved. apparently daughter is not health care surrogate legally, but has been making decisions in the outpatient setting. multiple disagreements within the family. appreciate palliative involvement. 02/14: Renal function continues to worsen and today 57/4.1. D/w Nephrology. If family wants everything done, will need to proceed with HD. Tmax 101.1. ID following 02/15: Remains critically ill, did not tolerate brief CPAP trial. CXR shows mod to large R pl effusion. MAXIMUM TEMPERATURE 100.5. Creatinine slightly improved with urine output more than 1.4 L 02/16: Patient remains intubated, lightly sedated.. Did not tolerate C-peptide yesterday due to tachypnea. CT of the chest shows moderately large right effusion plan for thoracentesis 02/17: Tmax 100.7. No bowel movement since 02/12. On sedation vacation withdrawals but does not follow commands. Tolerating tube feeds at goal. 02/18: Afebrile. One bowel movement overnight. Tolerating tube feeding. Placement of 10 K[place] pigtail catheter with 600 cc likely transudative effusion. Tachycardic this AM. 02/19: Currently down for CT abdomen/pelvis with distended abdomen. Also MRA brain/neck with acute/subacute bifrontal CVA. Neurology consult pending. Will likely need tracheostomy. 02/20: Noted emesis last night [address] abdomen/pelvis unremarkable. Moderate gastric output. Started on Reglan. Positive BM. 02/21: Afebrile. Tolerating trickle feeds. One bowel movement. Noted echocardiogram report yesterday. Discussed with Dr. Garcia - blood cultures 2, vancomycin. Reassess in a.m.. Attempting to obtain consent for tracheostomy with . 02/22: Neuro exam unchanged. Mental status will not permit extubation. UO adequate, creat improving. Tracheostomy tomorrow 02/23: Creat continues to improve, no change in mentation. Trach with Parminder today, GI consulted for PEG placement. 02/24: Afebrile. Status post tracheostomy by Dr. Zurita yesterday. Unable to replace gastric tube secondary to bleeding. Plan for PEG on Sunday. 02/25: Currently afebrile. Tracheostomy without bleeding. Hypertensive requiring when necessary's. Plan for PEG Monday 02/26: Afebrile. Check yesterday was unpacked last night. Repacked today. On sedation. Plan for PEG today. 02/27: Afebrile. Chest without bleeding. Continues to be on sedation due to agitation. PEG tube yesterday without competition. Plan remove chest tube today. 02/28: Resting currently in bed. No change in neurological status. Tracheostomy without bleeding. No acute issues. 03/01: Afebrile. More tremulous this a.m. upon removal of fentanyl drip. Currently on PSV trial. Positive BM 2. Tolerating tube feeds at 35 cc an hour. Neurological status unchanged. 03/02: Tmax 100.7. Currently 98.9. One bowel movement yesterday. Tolerating tube feeds at 40 cc an hour. Becomes agitated with removal of fentanyl drip. 03/03 WBC 15.3. Afebrile. On vanc and cefepime per ID. Tolerating CPAP 08/09 with RSBI 40s 03/04 Diuresed net -1.1 L yesterday. Tolerating C Pap 10 over 5 very well and appears can wean further. 03/05: continues to diurese well. still tolerates cpap. awaiting placement. 03/06: Cr slightly worse. likely at dry weight. still tolerating cpap, weaning down support. not ready for t-piece yet, but some improvement. [id number] review today with [employer]. I do not see any barriers to transfer to LTAC. patient does not have any additional inpatient medical needs. 03/07: Afebrile. On PSV trials today. Tolerating tube feeding. Positive bowel movement. Neurological status unchanged. 03/08: Afebrile. Tolerating tube feeds. Currently on T piece. Neurological status unchanged. Off all sedative drips 03/09 No acute events overnight. On ventilator via trach, afebrile. On no drips. Cr: 1.79 today from 1.69. 03/10: No acute events overnight. Seizure activity yesterday and started on Dilantin per Dr. Avalos. Tolerating diet. Positive BM. Subjective: 03/11: IV fluids discontinued overnight. Patient had emesis overnight. KUB with nonspecific bowel gas pattern. Tube feeds back at goal. Back on T piece trial. Neurologically unchanged. 03/12 No acute events overnight. On CPAP with PS 5, PEEP:5 and FIO2 35% overnight. Tolerated TP's during day yesterday. Afebrile. Objective Vital Signs Date Time Temp Pulse Resp B/P Pulse Ox O2 Delivery O2 Flow Rate FiO2 03/12/17 08:03 100 T-piece 6.00 28 03/12/17 06:00 99 03/12/17 04:00 98.3 20 91/56 Intake and Output 03/11/17 03/11/17 03/12/17 08:00 16:00 00:00 Intake Total 873 ml 760 ml 292 ml Output Total 450 ml 1400 ml 1350 ml Balance 423 ml -640 ml -1058 ml Result Diagram: 03/12/17 0305 03/12/17 0305 Other Results Laboratory Tests Test 03/12/17 03:05 White Blood Count 7.0 TH/MM3 Red Blood Count 2.53 MIL/MM3 Hemoglobin 7.6 GM/DL Hematocrit 22.6 % Mean Corpuscular Volume 89.5 FL Mean Corpuscular Hemoglobin 30.2 PG Mean Corpuscular Hemoglobin 33.7 % Concent Red Cell Distribution Width 15.7 % Platelet Count 298 TH/MM3 Mean Platelet Volume 7.7 FL Neutrophils (%) (Auto) 61.5 % Lymphocytes (%) (Auto) 14.5 % Monocytes (%) (Auto) 13.8 % Eosinophils (%) (Auto) 9.4 % Basophils (%) (Auto) 0.8 % Neutrophils # (Auto) 4.3 TH/MM3 Lymphocytes # (Auto) 1.0 TH/MM3 Monocytes # (Auto) 1.0 TH/MM3 Eosinophils # (Auto) 0.7 TH/MM3 Basophils # (Auto) 0.1 TH/MM3 CBC Comment DIFF FINAL Differential Comment Sodium Level 135 MEQ/L Potassium Level 4.7 MEQ/L Chloride Level 101 MEQ/L Carbon Dioxide Level 27.8 MEQ/L Anion Gap 6 MEQ/L Blood Urea Nitrogen 36 MG/DL Creatinine 1.74 MG/DL Estimat Glomerular Filtration 45 ML/MIN Rate Random Glucose 120 MG/DL Lactic Acid Level 0.9 mmol/L Calcium Level 7.9 MG/DL Phosphorus Level 2.9 MG/DL Magnesium Level 2.3 MG/DL Total Bilirubin 0.3 MG/DL Aspartate Amino Transf 40 U/L (AST/SGOT) Alanine Aminotransferase 30 U/L (ALT/SGPT) Alkaline Phosphatase 109 U/L Total Creatine Kinase 44 U/L Total Protein 6.6 GM/DL Albumin 2.0 GM/DL Lipase 314 U/L Free Thyroxine 1.03 NG/DL Free Triiodothyronine (T3) 1.25 PG/ML pg/dL Phenytoin (Dilantin) Level 19.7 MCG/ML Phenobarbital Level LESS THAN 2.1 MCG/ML Imaging Last Impressions Chest X-Ray 03/12/17 0600 Signed Impressions: Service Date/Time: Sunday, March 12, 2017 04:50 - CONCLUSION: Unchanged bowel effusions. Kaiser Valiente Jr., MD Abdomen X-Ray 03/11/17 0000 Signed Impressions: Service Date/Time: Saturday, March 11, 2017 09:46 - CONCLUSION: 1. Nonspecific, nonobstructive bowel gas pattern. 2. Gastrostomy tube now noted in place. 3. Bilateral pleural effusions. Hermilo Borrego MD Neck Magnetic Resonance Angiography 02/19/17 0000 Signed Impressions: Service Date/Time: Sunday, February 19, 2017 09:18 - CONCLUSION: 1. 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 Left vertebral emanates directly from the arch. 2. Otherwise, cervical vessels are all patent with no significant stenosis. Patient is slightly right vertebral dominant distally. Robbie Huggins MD Head Magnetic Resonance Angiography 02/19/17 0000 Signed Impressions: Service Date/Time: Sunday, February 19, 2017 09:18 - CONCLUSION: 1. 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 Intracranial vessels are otherwise patent. 2. No aneurysmal disease. 3. Anatomic variant of the [place] as above. Patient is right vertebral dominant. Robbie Huggins MD Chest CT 02/16/17 0000 Signed Impressions: Service Date/Time: Thursday, February 16, 2017 13:26 - CONCLUSION: 1. Moderate to large right and small left pleural effusion with associated compressive atelectasis. There additionally is airspace consolidation in the right lower lobe. 2. Small pericardial effusion. 3. There are 2 nodules in the right upper lobe measuring 5 mm and 10 mm. Suggest attention to these at followup imaging. Tra Ma MD Brain MRI 02/16/17 0000 Signed Impressions: Service Date/Time: Thursday, February 16, 2017 13:44 - CONCLUSION: Atrophy and extensive white matter disease as well as micro-bleeds the route the cerebral hemispheres and cerebellum. Punctate foci of acute infarction are suspected within the bilateral frontal white matter as described above. Scott Garcia MD Abdomen/Pelvis CT 02/16/17 0000 Signed Impressions: Service Date/Time: Thursday, February 16, 2017 13:26 - CONCLUSION: 1. Diffuse body wall edema, bilateral effusions, pericardial effusion and lower lobe atelectasis and consolidation. 2. Atherosclerosis. Scott Garcia MD Head CT 02/07/171946 Signed Impressions: Service Date/Time: Tuesday, February 07, 2017 20:03 - CONCLUSION: No acute intracranial injury Tra Garibay MD Objective Remarks GENERAL: 86-year-old male on ventilator via tracheostomy in no acute distress SKIN: Warm and dry. No rash HEAD: Atraumatic. Normocephalic. EYES: Pupils equal and round about 3-4 mm bilaterally and reactive. No scleral icterus. No injection or drainage. ENT: No nasal bleeding or discharge. Mucous membranes pink and moist. Oropharynx without erythema. Tracheostomy site is clean dry and intact with no drainage NECK: Trachea midline. Minimal JVD. CARDIOVASCULAR: RRR. S1, S2. No S4. Faint 1 out of 6 diastolic murmur appreciated RESPIRATORY: Few crackles in bases bilaterally and symmetrical. No wheeze GASTROINTESTINAL: Abdomen slightly protuberant . Nontender. PEG tube site is clean dry and intact. Tolerating tube feeds : Positive scrotal edema. MUSCULOSKELETAL: Extremities with 1-2+ upper and lower extremity pitting edema. No obvious deformities. NEUROLOGICAL: Some facial grimacing. Withdraws all extremities. Procedures None A/P Assessment and Plan Neuro/Psych: Acute metabolic encephalopathy End-stage dementia Right RADIO MECHANIC high-grade stenosis Hold Oxycodone and Seroquel monitor neuro status Continue with Cerebyx, Phenobarb and Keppra per neuro. CT head 02/07 negative for acute disease MRI brain 02/16 revealed increased signal intensity in the bilateral centrum semi -ovale and periventricular white matter, remote basal ganglia infarcts bilaterally and periventricular punctuate blooming micro-bleeds throughout. 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 Left vertebral takes off from aortic arch Neurology consult Dr. Avalos appreciated. Noted echo 02/12 no vegetations. 02/19 revealed 2 x 4 mm mitral valve leaflet and tricuspid valve lateral leaflet likely vegetation. Not a anticoagulation candidate per neurology due to micro-hemorrhages. Recommended repeat MRI in 4-6 weeks resolution of micro-hemorrhages/rule out septic emboli before initiation anticoagulation Continue aspirin 81 mg daily EEG 02/16 reveals moderate to severe encephalopathy. No epileptiform activity. EEG 03/05 - diffuse encephalopathy EEG 03/09 completed. Metabolic encephalopathy. Right greater than left posterior and mid temporal region with possible epileptiform activity. No Seizure activity with left arm twitching. Respiratory: Acute hypoxic respiratory failure Aspiration pneumonitis Aryec-vu-boebgrg aspiration Mod to large R effusion/small left pleural effusion Right upper lobe pulmonary nodules 5 and [address] mm. Recommend follow up CT in 3-6 months Continue with vent support keep sat >92% Patient is on TP's during day and CPAP at night. Bronchodilator therapy every 6 hours with albuterol every 2 hours for breakthrough Pulm toilet, trach care -- HOB at [address] chest 02/16 revealed moderate to large right pleural effusion and atelectasis/ small left pleural effusion. Status post placement of pigtail catheter right effusion 02/17. Removed 02/28 Tracheostomy 02/[address] Zurita, Cardiovascular: Atrial Fibrillation with Rapid Ventricular Response-early normal sinus rhythm Acute systolic heart failure Small pericardial effusion Echocardiogram 02/12 revealed EF 30-35%. Moderate TR. MARIA 53 mmHg. Echocardiogram 02/19 revealed EF 35%. Hypokinesis global. Small Mobile densities tricuspid and mitral valve ? vegetation question right MARIA 52 mmHg. On metoprolol 50 every 6 hours and hydralazine to 25 every 8 hours. Monitor HR and BP keep MAP>65mmhg Renal: Acute Kidney Injury secondary to ATN Monitor renal function, I/O's, avoid nephrotoxins. Cr: Currently 1.74, free water 100 3 times a day Diurese with Bumex 1mg x1 FEN/GI: Acute protein calorie malnutrition- severe C.Difficile Colitis Diarrhea Acute on chronic Aspiration Constipation Hyponatremia Hypophosphatemia TF with Jevity 1.5 goal 60 cc an hour Colace twice a day/Senokot twice a day. Miralax daily PEG tube by Dr. Cox Heme/ID: C. 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 Garcia following ABX per ID- On Cefepime till March 20 and Vanco per ID for culture negative endocarditis tricuspid valve/mitral valve Completed 14 day course of flagyl 02/23 for aspiration and C diff. Pertinent cultures 02/07 - blood cultures 2 - no growth 02/08 - stool -- C. difficile positive 02/09 - blood cultures 2 - no growth 02/12 - urine - no growth 02/13 - sputum - no growth 02/15 - blood cultures 2 - no growth 02/18 - urine - no growth 02/21 - blood no growth to date Endocrine: Hyperglycemia of critical illness (resolved) No sliding-scale ordered currently Prophylaxis: GI Prevacid DVT - SCD/pharmacological prophylaxis contraindicated with microhemorrhages. See neuro IV access: RUE PICC line. Geraldine Morgan [phone] is health care proxy. Daughter in charge of finances. Level 3 Olga Gaxiola MD March 12, 2017 08:21
[2017-03-12] MEDS ORDERED: BUMETANIDE INJ 1 MG/4 ML VIAL IV PUSH ONE (08:25)
[2017-03-12] MEDS: COLLAGENASE OINT 30 GM TUBE TOPICAL SCH (08:52)
[2017-03-12] MEDS: POLYETHYLENE GLYCOL 17 GM PKG PO SCH (08:53)
[2017-03-12] MEDS: DOCUSATE SODIUM 100 MG/10 ML UDC PO SCH ×2 (08:53→19:43)
[2017-03-12] MEDS: SENNOSIDES SYRUP 8.8 MG/5 ML CUP PO SCH ×2 (08:53→19:45)
[2017-03-12] MEDS: LACTOBACILLUS ACIDOPHILUS TAB PO SCH ×3 (08:53→18:48)
[2017-03-12] MEDS: BACITRACIN TOP OINT 15 GM TUBE TOPICAL SCH ×2 (08:53→19:45)
[2017-03-12] MEDS: LANSOPRAZOLE SOLUTAB 30 MG TAB NG SCH (08:53)
[2017-03-12] MEDS: ASPIRIN 81 MG CHEW TAB CHEW SCH (08:53)
[2017-03-12] MEDS: SODIUM CHLORIDE 0.9% FLUSH 10 ML FLUSH IV FLUSH SCH (08:55)
[2017-03-12] MEDS: CHLORHEXIDINE 0.12% (ORAL KIT) 15 ML CUP MT SCH ×2 (08:55→19:43)
--- NOTE | 2017-03-12 10:02 | HHI.IDPN ---
Subjective Subjective Remarks Notes reviewed Temps ok On T-piece, NAD Has been accepted at [facility], waiting for a bed D/W CM S/P PEG 02/26 BP ok, not on pressors is an 86 y/o AAM (Domin[place] by ) with Dementia who presented with worsening mentation and diagnosed with Pneumonia and Cdiff positive diarrhea. PM records from 2006 indicate no allergies no surgeries. ID following for PNA and Cdiff present on admission. Antibiotics Vancomycin Cefepime Lines Line sites with no evidence of infection Past Medical History Dementia. Allergies: Coded Allergies: No Known Allergies (Verified , 11/22/06) UNOBTAINABLE (Unverified , 02/09/17) Objective . Vital Signs Date Time Temp Pulse Resp B/P Pulse Ox O2 Delivery O2 Flow Rate FiO2 03/12/17 08:03 100 T-piece 6.00 28 03/12/17 06:00 99 03/12/17 04:41 100 35 03/12/17 04:00 35 03/12/17 04:00 100 Mechanical Ventilator 8.00 35 03/12/17 04:00 98.3 92 20 91/56 100 03/12/17 04:00 92 03/12/17 02:00 84 03/12/17 01:42 100 35 03/12/17 00:00 100 Mechanical Ventilator 8.00 35 03/12/17 00:00 98.5 80 15 123/65 100 03/12/17 00:00 80 03/12/17 00:00 35 03/11/17 22:00 90 03/11/17 21:25 100 35 03/11/17 20:00 35 03/11/17 20:00 98.4 91 18 152/89 100 03/11/17 20:00 100 T-Piece 8.00 35 03/11/17 20:00 91 03/11/17 19:00 93 21 161/77 100 03/11/17 18:45 93 23 100 03/11/17 18:30 98 21 144/76 100 03/11/17 18:15 102 23 100 03/11/17 18:00 96 17 146/72 100 03/11/17 18:00 96 03/11/17 17:45 100 17 100 03/11/17 17:30 102 20 174/86 100 03/11/17 17:15 100 18 100 03/11/17 17:00 102 20 120/93 100 03/11/17 16:45 100 17 100 03/11/17 16:30 101 17 150/73 100 03/11/17 16:15 100 17 100 03/11/17 16:00 35 03/11/17 16:00 99.0 101 18 158/77 100 03/11/17 16:00 100 Mechanical Ventilator 8.00 35 03/11/17 16:00 101 03/11/17 15:00 104 23 100 03/11/17 14:30 97 20 141/79 100 03/11/17 14:00 97 20 141/77 100 03/11/17 14:00 97 03/11/17 13:30 99 23 169/94 100 03/11/17 13:00 97 21 150/85 100 03/11/17 12:30 100 23 160/92 100 03/11/17 12:00 99.1 100 24 148/93 100 03/11/17 12:00 35 03/11/17 12:00 100 03/11/17 12:00 97 Mechanical Ventilator 8.00 35 03/11/17 11:30 105 23 154/79 100 03/11/17 11:00 102 21 154/88 100 03/11/17 10:56 100 T-piece 6.00 35 03/11/17 10:30 101 21 157/87 100 03/11/17 10:00 101 03/11/17 10:00 101 19 152/82 100 03/11/17 03/11/17 03/12/17 14:59 22:59 06:59 Intake Total 760 ml 292 ml 426 ml Output Total 1400 ml 1350 ml 450 ml Balance -640 ml -1058 ml -24 ml Intake Oral 0 ml 0 ml IV Total 392 ml 0 ml 206 ml Tube Feeding 68 ml 232 ml 160 ml Albumin 100 ml Other 200 ml 60 ml 60 ml Output Urine Total 1400 ml 1350 ml 450 ml # Bowel Movements 0 0 0 . Laboratory Tests Test 03/11/17 03/12/17 04:00 03:05 White Blood Count 9.5 TH/MM3 7.0 TH/MM3 Red Blood Count 2.67 MIL/MM3 2.53 MIL/MM3 Hemoglobin 8.0 GM/DL 7.6 GM/DL Hematocrit 24.0 % 22.6 % Mean Corpuscular Volume 89.7 FL 89.5 FL Mean Corpuscular Hemoglobin 30.0 PG 30.2 PG Mean Corpuscular Hemoglobin 33.5 % 33.7 % Concent Red Cell Distribution Width 16.0 % 15.7 % Platelet Count 345 TH/MM3 298 TH/MM3 Mean Platelet Volume 8.7 FL 7.7 FL Neutrophils (%) (Auto) 61.5 % Lymphocytes (%) (Auto) 14.5 % Monocytes (%) (Auto) 13.8 % Eosinophils (%) (Auto) 9.4 % Basophils (%) (Auto) 0.8 % Neutrophils # (Auto) 4.3 TH/MM3 Lymphocytes # (Auto) 1.0 TH/MM3 Monocytes # (Auto) 1.0 TH/MM3 Eosinophils # (Auto) 0.7 TH/MM3 Basophils # (Auto) 0.1 TH/MM3 CBC Comment DIFF FINAL Differential Comment Laboratory Tests Test 03/11/17 03/12/17 04:00 03:05 Sodium Level 134 MEQ/L 135 MEQ/L Potassium Level 4.7 MEQ/L 4.7 MEQ/L Chloride Level 102 MEQ/L 101 MEQ/L Carbon Dioxide Level 26.0 MEQ/L 27.8 MEQ/L Anion Gap 6 MEQ/L 6 MEQ/L Blood Urea Nitrogen 35 MG/DL 36 MG/DL Creatinine 1.75 MG/DL 1.74 MG/DL Estimat Glomerular Filtration 45 ML/MIN 45 ML/MIN Rate Random Glucose 160 MG/DL 120 MG/DL Calcium Level 8.0 MG/DL 7.9 MG/DL Phosphorus Level 2.6 MG/DL 2.9 MG/DL Magnesium Level 2.2 MG/DL 2.3 MG/DL Lactic Acid Level 0.9 mmol/L Total Bilirubin 0.3 MG/DL Aspartate Amino Transf 40 U/L (AST/SGOT) Alanine Aminotransferase 30 U/L (ALT/SGPT) Alkaline Phosphatase 109 U/L Total Creatine Kinase 44 U/L Total Protein 6.6 GM/DL Albumin 2.0 GM/DL Lipase 314 U/L Free Thyroxine 1.03 NG/DL Free Triiodothyronine (T3) 1.25 PG/ML pg/dL Imaging Chest X-Ray 02/28/17 0600 Signed Impressions: Service Date/Time: Tuesday, February 28, 2017 02:22 - CONCLUSION: 1. The small right-sided chest tube is no longer in the right pleural space. The tip is in the subcutaneous soft tissues along the right chest wall. Recommend complete removal. 2. No evidence of pneumothorax. 3. Bibasilar pulmonary infiltrates with effusions. Stevie Fleming MD Chest X-Ray 02/23/17 0600 Signed Impressions: Service Date/Time: Thursday, February 23, 2017 04:01 - CONCLUSION: Unchanged bibasilar infiltrates. Kaiser Valiente Jr., MD Chest X-Ray 02/23/17 0000 Signed Impressions: Service Date/Time: Thursday, February 23, 2017 11:49 - CONCLUSION: Bibasilar opacities are present may be due to a combination of consolidation and or pleural effusion. Cheyanne Reveles MD Chest X-Ray 02/22/17 0600 Signed Impressions: Service Date/Time: February 03:16 - CONCLUSION: Continue consolidation both lung bases right worse the left. Upper lungs are clear. ET tube in good position. Sanjay Watts MD Neck Magnetic Resonance Angiography 02/19/17 0000 Signed Impressions: Service Date/Time: Sunday, February 19, 2017 09:18 - CONCLUSION: 1. 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 Left vertebral emanates directly from the arch. 2. Otherwise, cervical vessels are all patent with no significant stenosis. Patient is slightly right vertebral dominant distally. Robbie Huggins MD Head Magnetic Resonance Angiography 02/19/17 0000 Signed Impressions: Service Date/Time: Sunday, February 19, 2017 09:18 - CONCLUSION: 1. 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 Intracranial vessels are otherwise patent. 2. No aneurysmal disease. 3. Anatomic variant of the [place] as above. Patient is right vertebral dominant. Robbie Huggins MD Chest X-Ray 02/19/17 0000 Signed Impressions: Service Date/Time: Sunday, February 19, 2017 11:17 - CONCLUSION: No appreciable change in bilateral pleural effusions bibasilar consolidation and/or compressive collapse and probable mild case of pulmonary edema. Cheyanne Reveles MD Physical Exam GENERAL: On T-piece, awake, focusing SKIN: Warm and dry. No generalized rash. HEENT: [place] conjunctivae. No scleral icterus. Moist mucosa NECK: Trach in place, site ok. Supple. Has swelling on L side of neck, parotid gland, looks better CARDIOVASCULAR: Regular S1S2 RESPIRATORY: Decreased BS rikki clari at bases GASTROINTESTINAL: Abdomen less distended, bowel sounds are present, hypoactive. PEG site ok. Some grimacing with palpation MUSCULOSKELETAL: Extremities without clubbing, cyanosis, or pedal edema. Hands edematous : Has very swollen scrotum, [place] with small amount of sediment NEUROLOGICAL: Awake and seem to be focusing, not tracking PSYCH: Unable to assess LINE: PIV with no evidence of infection Assessment & Plan Remarks IMPRESSION Respiratory failure,S/P trach - S/P RX Aspiration, S/P Rx MV and TV vegetation on recent echo, all BC have been negative - ?GPC, ?GNR - initial echo negative, and second echo that showed the vegetation Has R effusion, has CT in place Pneumonia present on admission: likely aspiration in setting of dementia. S/P Rx C diff positive, clinically resolved Ongoing aspiration. Dementia Acute metabolic encephalopathy Fevers: Concomitant antibiotics for Pneumonia ppting Cdiff, ongoing aspiration - temps better. Renal insufficiency L neck/jaw swelling, due steffanie parotitis, looks better RECOMMENDATION Continue IV Vanco - Pharm doing dosing - aim for trough 15-20 Continue Cefepime 4 week of Abx would be till March 20 - end dates ordered in [facility] Labs at least once a week while on IV Abx: CBC, creat, LFT Patient is ok from ID standpoint to go to [facility] Spoke with Tricia Todd MD March 12, 2017 10:02
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
[2017-03-12] MEDS: levETIRAcetam 500 MG/NS 100 ML IV SCH ×2 (13:24)
[2017-03-12] MEDS ORDERED: PHENYTOIN SODIUM 100 MG CAP PO SCH (18:00)
[2017-03-12] MEDS: PHENYTOIN SUSP 100 MG/4 ML CUP PO SCH (18:48)
[2017-03-12] MEDS: levETIRAcetam 500 MG/5 ML UDC PO SCH (19:44)
[2017-03-13] VITALS (24 sets, daily range): BP systolic 82–182; BP diastolic 55–100; PULSE 85–100; RESP 19–26; TEMP 98.3–99.1; O2SAT 100
[2017-03-13] MEDS: RESP: ALBUTEROL 2.5 MG/IPRATROPIUM 0.5 MG NEB (SCH) NEB ×4 (03:16→21:11)
[2017-03-13] MEDS: CEFEPIME INJ 2,000 MG in SODIUM CHLORIDE 0.9% INJ 100 ML IV SCH (03:32)
[2017-03-13] MEDS: hydrALAZINE HCL 20 MG/ML VIAL IV PUSH PRN ×2 (03:33→14:53)
[2017-03-13 05:13] LABS: AUTOMATED NEUTROPHIL # 5.5 TH/MM3 (1.8-7.7); BASOPHIL % 0.6 % (0.0-2.0); EOSINOPHIL # 0.6 TH/MM3 (0-0.4); EOSINOPHIL % 7.2 % (0.0-4.0); HEMATOCRIT 24.8 % (39.0-51.0); HEMO FLAGS DIFF FINAL; LYMPH % 11.6 % (9.0-44.0); MEAN CELL VOLUME 88.1 FL (80.0-100.0); MEAN CORPUSCULAR HEMOGLOBIN 30.1 PG (27.0-34.0); MEAN CORPUSCULAR HGB CONC 34.2 % (32.0-36.0); MONO % 13.8 % (0.0-8.0); NEUT % 66.8 % (16.0-70.0); PLATELET COUNT 393 TH/MM3 (150-450); RED BLOOD COUNT 2.81 MIL/MM3 (4.50-5.90); RED CELL DISTRIBUTION WIDTH 15.5 % (11.6-17.2); WHITE BLOOD COUNT 8.2 TH/MM3 (4.0-11.0)
[2017-03-13 05:38] LABS: ALKALINE PHOSPHATASE 134 U/L (45-117); ALT (GPT) 41 U/L (12-78); ANION GAP 7 MEQ/L (5-15); AST (GOT) 65 U/L (15-37); BICARBONATE 28.4 MEQ/L (21.0-32.0); BLOOD UREA NITROGEN 37 MG/DL (7-18); CHLORIDE 99 MEQ/L (98-107); GLOMERULAR FILTRATION RATE 43 ML/MIN (>89); MAGNESIUM 2.3 MG/DL (1.5-2.5); PHENOBARBITAL 3.3 MCG/ML (15.0-40.0); POTASSIUM 4.5 MEQ/L (3.5-5.1); SODIUM (NA) 134 MEQ/L (136-145); TOTAL BILIRUBIN ADULT 0.3 MG/DL (0.2-1.0)
[2017-03-13] MEDS: ARTIFICIAL TEARS OPTH SOLN 15 ML BTL EACH EYE SCH ×3 (05:42→22:00)
[2017-03-13] MEDS: METOPROLOL TARTRATE 50 MG TAB PO SCH ×3 (06:04→17:25)
[2017-03-13] MEDS: hydrALAZINE HCL 25 MG TAB PO SCH ×3 (06:04→21:00)
[2017-03-13] MEDS: METOCLOPRAMIDE HCL 10 MG/2 ML VIAL IV PUSH SCH ×3 (06:04→21:00)
[2017-03-13] MEDS: LANSOPRAZOLE SOLUTAB 30 MG TAB NG SCH (08:49)
[2017-03-13] MEDS: ASPIRIN 81 MG CHEW TAB CHEW SCH (08:49)
[2017-03-13] MEDS: CHLORHEXIDINE 0.12% (ORAL KIT) 15 ML CUP MT SCH ×2 (08:49→20:42)
[2017-03-13] MEDS: SENNOSIDES SYRUP 8.8 MG/5 ML CUP PO SCH ×2 (08:49→20:40)
[2017-03-13] MEDS: levETIRAcetam 500 MG/5 ML UDC PO SCH ×2 (08:49→20:40)
[2017-03-13] MEDS: POLYETHYLENE GLYCOL 17 GM PKG PO SCH (08:49)
[2017-03-13] MEDS: LACTOBACILLUS ACIDOPHILUS TAB PO SCH ×3 (08:49→17:25)
[2017-03-13] MEDS: DOCUSATE SODIUM 100 MG/10 ML UDC PO SCH ×2 (08:50→20:41)
[2017-03-13] MEDS: SODIUM CHLORIDE 0.9% FLUSH 10 ML FLUSH IV FLUSH SCH (08:50)
[2017-03-13] MEDS: PHENYTOIN SUSP 100 MG/4 ML CUP PO SCH ×3 (08:50→17:25)
[2017-03-13] MEDS: BACITRACIN TOP OINT 15 GM TUBE TOPICAL SCH ×2 (08:52→20:43)
[2017-03-13] MEDS: COLLAGENASE OINT 30 GM TUBE TOPICAL SCH (08:52)
--- NOTE | 2017-03-13 09:10 | HHI.PR ---
Review/Management Diagnosis multiple small strokes in different vascular territories with some with microscopic hemorrhage THe differential would inlcude septic emboli from possible SBE given the echo finding of a possible mitral valve vegetation vs emboli from afib possible focal seizures Plan would continue the aspirin. increase keppra continue dilantin Diagnosis/Plan: Subjective Subjective Comments No acute events reported still with minor myoclonus right arm but definitely reduced. I noted EEG done over weekend Active Medications Current Medications Medications (Trade) Dose Ordered Sig/Connor Route Start Time Stop Time Status Last Admin (Zofran Inj) 4 mg Q8H PRN IV PUSH 02/07/17 21:45 (Tylenol) 500 mg Q4H PRN PO 02/08/17 13:15 03/02/17 08:01 (Lactinex) 1 tab TID PO 02/09/17 13:00 03/13/17 08:49 (Peridex 0.12% Liq) 15 ml BID@08,20 MT 02/12/17 20:00 03/13/17 08:49 (D50w (Vial) Inj) 25 ml UNSCH PRN IV PUSH 02/12/17 14:30 02/24/17 18:16 (Aspirin Chew) 81 mg DAILY CHEW 02/13/17 09:00 03/13/17 08:49 Miscellaneous Information Patient in critical care unit? Ass... Q361D .XX 02/12/17 22:00 (Senna Liq) 8.8 mg BID PO 02/17/17 21:00 03/13/17 08:49 (Glycerin Adult Supp) 2 gm BID PRN RECTAL 02/17/17 10:15 (Tears Naturale Opth Soln) 1 drop Q8HR EACH EYE 02/17/17 14:00 03/13/17 05:42 Metoclopramide HCl 5 mg 5 mg Q8HR IV PUSH 02/19/17 14:00 03/13/17 06:04 (Vancomycin Consult Pharmacy) 0 ml @ 0 mls/hr UNSCH OTHER 02/21/17 13:15 (Colace Liq) 100 mg BID PO 02/22/17 09:00 03/13/17 08:50 (Trandate Inj) 10 mg Q1H PRN IV PUSH 02/24/17 08:00 03/02/17 08:01 (Apresoline Inj) 10 mg Q1H PRN IV PUSH 02/24/17 08:00 03/13/17 03:33 (Nitroglycerin 2% Oint) 2 inch Q6H PRN TOPICAL 02/24/17 08:00 (Santyl Oint) 1 applic DAILY TOPICAL 03/01/17 09:00 03/13/17 08:52 (Baciguent Oint) 1 applic Q12HR TOPICAL 02/28/17 21:00 03/13/17 08:52 (Miralax) 17 gm DAILY PO 03/01/17 09:00 03/13/17 08:49 (NS Flush) See Protocol DAILY IV FLUSH 03/02/17 09:00 03/13/17 08:50 (NS Flush) See Protocol UNSCH PRN IV FLUSH 03/01/17 19:15 03/03/17 06:08 (Heparin Central Flush) See Protocol DAILY IV FLUSH 03/02/17 09:00 03/13/17 08:50 (Heparin Central Flush) See Protocol UNSCH PRN IV FLUSH 03/01/17 19:15 (NS Flush) UNSCH PRN IV FLUSH 03/01/17 19:15 03/02/17 08:02 (SEROquel) 50 mg Q8HR PO 03/02/17 22:00 Hold 03/12/17 05:17 (Apresoline) 25 mg Q8HR PO 03/02/17 22:00 03/13/17 06:04 Fentanyl Citrate 50 mcg 50 mcg Q2H PRN IV PUSH 03/02/17 21:00 03/11/17 03:46 Potassium Chloride 100 ml @ 50 mls/hr Q2H PRN IV 03/03/17 14:30 (KCl 20 Meq Premix Inj) 100 ml @ 50 mls/hr Q2H PRN IV 03/03/17 14:30 Potassium Bicarb/ Potassium Chloride 50 meq 50 meq UNSCH PRN PO 03/03/17 14:30 Potassium Chloride 100 ml @ 25 mls/hr UNSCH PRN IV 03/03/17 14:30 Potassium Chloride 100 ml @ 50 mls/hr Q2H PRN IV 03/03/17 14:30 (Magnesium Sulfate Inj/NS Inj) 100 ml @ 50 mls/hr UNSCH PRN IV 03/03/17 14:30 Magnesium Oxide 800 mg 800 mg UNSCH PRN PO 03/03/17 14:30 (Magnesium Sulfate Inj/NS Inj) 100 ml @ 50 mls/hr UNSCH PRN IV 03/03/17 14:30 Potassium Phosphate 2000 mg 2,000 mg Q4H PRN PO 03/03/17 14:30 (Sodium Phosphate Inj/NS 250 ml Inj) 250 ml @ 42 mls/hr UNSCH PRN IV 03/03/17 14:30 03/03/17 17:44 (K-Phos) 2,000 mg UNSCH PRN PO/TUBE 03/03/17 14:30 Lansoprazole 30 mg 30 mg DAILY NG 03/08/17 09:00 03/13/17 08:49 (Maxipime Inj/NS Inj) 100 ml @ 200 mls/hr Q24H IV 03/10/17 04:00 03/20/17 04:01 03/13/17 03:32 (Lopressor) 50 mg Q6HR PO 03/11/17 12:00 03/13/17 06:04 (Luminal Inj) 65 mg BID IV PUSH 03/11/17 21:00 03/13/17 08:50 (Keppra Liq) 500 mg Q12HR PO 03/12/17 21:00 03/13/17 08:49 (Dilantin Liq) 100 mg TID PO 03/12/17 18:00 03/13/17 08:50 Allergies Allergies Coded Allergies No Known Allergies (Verified11/22/06) UNOBTAINABLE (Unverified02/09/17) Exam I&O / VS 03/12/17 03/12/17 03/13/17 15:00 23:00 07:00 Intake Total 372 ml 328 ml 391 ml Output Total 1200 ml 800 ml 425 ml Balance -828 ml -472 ml -34 ml Intake Oral 0 ml 0 ml IV Total 82 ml 0 ml 0 ml Tube Feeding 230 ml 268 ml 331 ml Other 60 ml 60 ml 60 ml Output Urine Total 1200 ml 800 ml 425 ml # Bowel Movements 0 0 0 Vital Signs Date Time Temp Pulse Resp B/P Pulse Ox O2 Delivery O2 Flow Rate FiO2 03/13/17 08:40 100 35 03/13/17 06:00 93 03/13/17 04:00 98.7 100 24 139/74 100 03/13/17 04:00 35 5/9/17 04:00 100 03/13/17 04:00 100 Bi-Pap 35 03/13/17 03:16 100 35 03/13/17 02:00 85 03/13/17 01:03 100 35 03/13/17 00:00 100 Bi-Pap 35 03/13/17 00:00 35 03/13/17 00:00 98.7 89 22 154/87 100 03/13/17 00:00 86 03/12/17 22:00 92 03/12/17 20:30 158/82 03/12/17 20:00 93 T-Piece 6.00 28 03/12/17 20:00 28 03/12/17 20:00 99.2 92 23 167/92 100 03/12/17 20:00 92 03/12/17 18:00 91 03/12/17 16:00 28 03/12/17 16:00 99.0 93 27 162/87 100 03/12/17 16:00 94 Mechanical Ventilator 8.00 35 03/12/17 16:00 93 03/12/17 14:00 92 03/12/17 12:00 101 03/12/17 12:00 95 Mechanical Ventilator 8.00 35 03/12/17 12:00 99.3 101 23 147/75 100 03/12/17 12:00 28 03/12/17 10:00 105 Exam Comments very lethargic does not follow commands Pupils equal Motor- no spontaneous limb movement. minimal RUE myoclonus Objective Micro and Labs Laboratory Tests Test 03/12/17 03/13/17 14:45 04:00 Random Vancomycin Level 22.5 19.4 White Blood Count 8.2 Red Blood Count 2.81 Hemoglobin 8.5 Hematocrit 24.8 Mean Corpuscular Volume 88.1 Mean Corpuscular Hemoglobin 30.1 Mean Corpuscular Hemoglobin 34.2 Concent Red Cell Distribution Width 15.5 Platelet Count 393 Mean Platelet Volume 9.2 Neutrophils (%) (Auto) 66.8 Lymphocytes (%) (Auto) 11.6 Monocytes (%) (Auto) 13.8 Eosinophils (%) (Auto) 7.2 Basophils (%) (Auto) 0.6 Neutrophils # (Auto) 5.5 Lymphocytes # (Auto) 1.0 Monocytes # (Auto) 1.1 Eosinophils # (Auto) 0.6 Basophils # (Auto) 0.0 CBC Comment DIFF FINAL Differential Comment Sodium Level 134 Potassium Level 4.5 Chloride Level 99 Carbon Dioxide Level 28.4 Anion Gap 7 Blood Urea Nitrogen 37 Creatinine 1.84 Estimat Glomerular Filtration 43 Rate Random Glucose 109 Calcium Level 7.9 Phosphorus Level 2.6 Magnesium Level 2.3 Total Bilirubin 0.3 Aspartate Amino Transf 65 (AST/SGOT) Alanine Aminotransferase 41 (ALT/SGPT) Alkaline Phosphatase 134 Total Protein 6.7 Albumin 1.8 Phenobarbital Level 3.3 Darius Avalos PhD MD March 13, 2017 09:09
--- NOTE | 2017-03-13 09:37 | HHI.CCPN ---
Subjective Remarks/Hospital Course This is a 86yM who presented from home with altered mental status and end-stage dementia. His hospital course has been complicated by C. Diff and pneumonia for which he is on appropriate therapy. He has been noted to have [id number] aspiration during this hospital stay and has been NPO. Today, a rapid response was called for acute respiratory distress and hypoxia. I was called by Dr. Velez at the rapid response. He believe this is an aspiration event given the patient's clinical history. I immediately went and evaluated the patient. He is labored and in distress. his spo2 is 93% on non-rebreather. He is also in what appears to be new-onset atrial fibrillation with RVR and a HR 160s. Brief review of the pertinent laboratory data demonstrate worsening acute kidney injury, worsening anion-gap metabolic acidosis. Critical care medicine is consulted to evaluate and manage his severe respiratory distress and afib RVR. Unfortunately, the patient is obtunded and cannot provide any additional history. 02/13: no clinical improvements. remains in multiorgan system failure. diltiazem drip weaned to off, but remains on phenylephrine. talked with nephrology who feel clinically, despite some element of JVD, that patient is clinically intravascularly hypovolemic and they recommend gentle ivf hydration, which I am ok with as a trial. mental status poor. kidney injury persists. palliative involved. apparently daughter is not health care surrogate legally, but has been making decisions in the outpatient setting. multiple disagreements within the family. appreciate palliative involvement. 02/14: Renal function continues to worsen and today 57/4.1. D/w Nephrology. If family wants everything done, will need to proceed with HD. Tmax 101.1. ID following 02/15: Remains critically ill, did not tolerate brief CPAP trial. CXR shows mod to large R pl effusion. MAXIMUM TEMPERATURE 100.5. Creatinine slightly improved with urine output more than 1.4 L 02/16: Patient remains intubated, lightly sedated.. Did not tolerate C-peptide yesterday due to tachypnea. CT of the chest shows moderately large right effusion plan for thoracentesis 02/17: Tmax 100.7. No bowel movement since 02/12. On sedation vacation withdrawals but does not follow commands. Tolerating tube feeds at goal. 02/18: Afebrile. One bowel movement overnight. Tolerating tube feeding. Placement of 10 Japanese pigtail catheter with 600 cc likely transudative effusion. Tachycardic this AM. 02/19: Currently down for CT abdomen/pelvis with distended abdomen. Also MRA brain/neck with acute/subacute bifrontal CVA. Neurology consult pending. Will likely need tracheostomy. 02/20: Noted emesis last night [address] abdomen/pelvis unremarkable. Moderate gastric output. Started on Reglan. Positive BM. 02/21: Afebrile. Tolerating trickle feeds. One bowel movement. Noted echocardiogram report yesterday. Discussed with Dr. Garcia - blood cultures 2, vancomycin. Reassess in a.m.. Attempting to obtain consent for tracheostomy with . 02/22: Neuro exam unchanged. Mental status will not permit extubation. UO adequate, creat improving. Tracheostomy tomorrow 02/23: Creat continues to improve, no change in mentation. Trach with Parminder today, GI consulted for PEG placement. 02/24: Afebrile. Status post tracheostomy by Dr. Zurita yesterday. Unable to replace gastric tube secondary to bleeding. Plan for PEG on Sunday. 02/25: Currently afebrile. Tracheostomy without bleeding. Hypertensive requiring when necessary's. Plan for PEG Monday 02/26: Afebrile. Check yesterday was unpacked last night. Repacked today. On sedation. Plan for PEG today. 02/27: Afebrile. Chest without bleeding. Continues to be on sedation due to agitation. PEG tube yesterday without competition. Plan remove chest tube today. 02/28: Resting currently in bed. No change in neurological status. Tracheostomy without bleeding. No acute issues. 03/01: Afebrile. More tremulous this a.m. upon removal of fentanyl drip. Currently on PSV trial. Positive BM 2. Tolerating tube feeds at 35 cc an hour. Neurological status unchanged. 03/02: Tmax 100.7. Currently 98.9. One bowel movement yesterday. Tolerating tube feeds at 40 cc an hour. Becomes agitated with removal of fentanyl drip. 03/03 WBC 15.3. Afebrile. On vanc and cefepime per ID. Tolerating CPAP 08/09 with RSBI 40s 03/04 Diuresed net -1.1 L yesterday. Tolerating C Pap 10 over 5 very well and appears can wean further. 03/05: continues to diurese well. still tolerates cpap. awaiting placement. 03/06: Cr slightly worse. likely at dry weight. still tolerating cpap, weaning down support. not ready for t-piece yet, but some improvement. [id number] review today with [employer]. I do not see any barriers to transfer to LTAC. patient does not have any additional inpatient medical needs. 03/07: Afebrile. On PSV trials today. Tolerating tube feeding. Positive bowel movement. Neurological status unchanged. 03/08: Afebrile. Tolerating tube feeds. Currently on T piece. Neurological status unchanged. Off all sedative drips 03/09 No acute events overnight. On ventilator via trach, afebrile. On no drips. Cr: 1.79 today from 1.69. 03/10: No acute events overnight. Seizure activity yesterday and started on Dilantin per Dr. Avalos. Tolerating diet. Positive BM. Subjective: 03/11: IV fluids discontinued overnight. Patient had emesis overnight. KUB with nonspecific bowel gas pattern. Tube feeds back at goal. Back on T piece trial. Neurologically unchanged. 03/12 No acute events overnight. On CPAP with PS 5, PEEP:5 and FIO2 35% overnight. Tolerated TP's during day yesterday. Afebrile. 03/13 Patient was on CPAP overnight with PS %, PEEP: 5 and FIO2 35%. Afebrile. Objective Vital Signs Date Time Temp Pulse Resp B/P Pulse Ox O2 Delivery O2 Flow Rate FiO2 03/13/17 09:05 100 T-piece 35 03/13/17 06:00 93 03/13/17 04:00 98.7 24 139/74 03/12/17 20:00 6.00 Intake and Output 03/12/17 03/12/17 03/13/17 08:00 16:00 00:00 Intake Total 426 ml 372 ml 328 ml Output Total 450 ml 1200 ml 800 ml Balance -24 ml -828 ml -472 ml Result Diagram: 03/13/17 0400 03/13/17 0400 Other Results Laboratory Tests Test 03/12/17 03/13/17 14:45 04:00 Random Vancomycin Level 22.5 COMMENT 19.4 COMMENT White Blood Count 8.2 TH/MM3 Red Blood Count 2.81 MIL/MM3 Hemoglobin 8.5 GM/DL Hematocrit 24.8 % Mean Corpuscular Volume 88.1 FL Mean Corpuscular Hemoglobin 30.1 PG Mean Corpuscular Hemoglobin 34.2 % Concent Red Cell Distribution Width 15.5 % Platelet Count 393 TH/MM3 Mean Platelet Volume 9.2 FL Neutrophils (%) (Auto) 66.8 % Lymphocytes (%) (Auto) 11.6 % Monocytes (%) (Auto) 13.8 % Eosinophils (%) (Auto) 7.2 % Basophils (%) (Auto) 0.6 % Neutrophils # (Auto) 5.5 TH/MM3 Lymphocytes # (Auto) 1.0 TH/MM3 Monocytes # (Auto) 1.1 TH/MM3 Eosinophils # (Auto) 0.6 TH/MM3 Basophils # (Auto) 0.0 TH/MM3 CBC Comment DIFF FINAL Differential Comment Sodium Level 134 MEQ/L Potassium Level 4.5 MEQ/L Chloride Level 99 MEQ/L Carbon Dioxide Level 28.4 MEQ/L Anion Gap 7 MEQ/L Blood Urea Nitrogen 37 MG/DL Creatinine 1.84 MG/DL Estimat Glomerular Filtration 43 ML/MIN Rate Random Glucose 109 MG/DL Calcium Level 7.9 MG/DL Phosphorus Level 2.6 MG/DL Magnesium Level 2.3 MG/DL Total Bilirubin 0.3 MG/DL Aspartate Amino Transf 65 U/L (AST/SGOT) Alanine Aminotransferase 41 U/L (ALT/SGPT) Alkaline Phosphatase 134 U/L Total Protein 6.7 GM/DL Albumin 1.8 GM/DL Phenobarbital Level 3.3 MCG/ML Imaging Last Impressions Chest X-Ray 03/12/17 0600 Signed Impressions: Service Date/Time: Sunday, March 12, 2017 04:50 - CONCLUSION: Unchanged bowel effusions. Kaiser Valiente Jr., MD Abdomen X-Ray 03/11/17 0000 Signed Impressions: Service Date/Time: Saturday, March 11, 2017 09:46 - CONCLUSION: 1. Nonspecific, nonobstructive bowel gas pattern. 2. Gastrostomy tube now noted in place. 3. Bilateral pleural effusions. Hermilo Borrego MD Neck Magnetic Resonance Angiography 02/19/17 0000 Signed Impressions: Service Date/Time: Sunday, February 19, 2017 09:18 - CONCLUSION: 1. 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 Left vertebral emanates directly from the arch. 2. Otherwise, cervical vessels are all patent with no significant stenosis. Patient is slightly right vertebral dominant distally. Robbie Huggins MD Head Magnetic Resonance Angiography 02/19/17 0000 Signed Impressions: Service Date/Time: Sunday, February 19, 2017 09:18 - CONCLUSION: 1. 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 Intracranial vessels are otherwise patent. 2. No aneurysmal disease. 3. Anatomic variant of the craig of [place] as above. Patient is right vertebral dominant. Robbie Huggins MD Chest CT 02/16/17 0000 Signed Impressions: Service Date/Time: Thursday, February 16, 2017 13:26 - CONCLUSION: 1. Moderate to large right and small left pleural effusion with associated compressive atelectasis. There additionally is airspace consolidation in the right lower lobe. 2. Small pericardial effusion. 3. There are 2 nodules in the right upper lobe measuring 5 mm and 10 mm. Suggest attention to these at followup imaging. Tra Ma MD Brain MRI 02/16/17 0000 Signed Impressions: Service Date/Time: Thursday, February 16, 2017 13:44 - CONCLUSION: Atrophy and extensive white matter disease as well as micro-bleeds the route the cerebral hemispheres and cerebellum. Punctate foci of acute infarction are suspected within the bilateral frontal white matter as described above. Scott Garcia MD Abdomen/Pelvis CT 02/16/17 0000 Signed Impressions: Service Date/Time: Thursday, February 16, 2017 13:26 - CONCLUSION: 1. Diffuse body wall edema, bilateral effusions, pericardial effusion and lower lobe atelectasis and consolidation. 2. Atherosclerosis. Scott Garcia MD Head CT 02/07/171946 Signed Impressions: Service Date/Time: Tuesday, February 07, 2017 20:03 - CONCLUSION: No acute intracranial injury Tra Garibay MD Objective Remarks GENERAL: 86-year-old male on ventilator via tracheostomy in no acute distress SKIN: Warm and dry. No rash HEAD: Atraumatic. Normocephalic. EYES: Pupils equal and round about 3-4 mm bilaterally and reactive. No scleral icterus. No injection or drainage. ENT: No nasal bleeding or discharge. Mucous membranes pink and moist. Oropharynx without erythema. Tracheostomy site is clean dry and intact with no drainage NECK: Trachea midline. Minimal JVD. CARDIOVASCULAR: RRR. S1, S2. No S4. Faint 1 out of 6 diastolic murmur appreciated RESPIRATORY: Few crackles in bases bilaterally and symmetrical. No wheeze GASTROINTESTINAL: Abdomen slightly protuberant . Nontender. PEG tube site is clean dry and intact. Tolerating tube feeds : Positive scrotal edema. MUSCULOSKELETAL: Extremities with 1-2+ upper and lower extremity pitting edema. No obvious deformities. NEUROLOGICAL: Some facial grimacing. Withdraws all extremities. Procedures None A/P Assessment and Plan Neuro/Psych: Acute metabolic encephalopathy End-stage dementia Right SIGNAL ENGINEER high-grade stenosis Hold Oxycodone and Seroquel monitor neuro status Continue with Cerebyx, Phenobarb and Keppra per neuro. CT head 02/07 negative for acute disease MRI brain 02/16 revealed increased signal intensity in the bilateral centrum semi -ovale and periventricular white matter, remote basal ganglia infarcts bilaterally and periventricular punctuate blooming micro-bleeds throughout. 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 Left vertebral takes off from aortic arch Neurology consult Dr. Avalos appreciated. Noted echo 02/12 no vegetations. 02/19 revealed 2 x 4 mm mitral valve leaflet and tricuspid valve lateral leaflet likely vegetation. Not a anticoagulation candidate per neurology due to micro-hemorrhages. Recommended repeat MRI in 4-6 weeks resolution of micro-hemorrhages/rule out septic emboli before initiation anticoagulation Continue aspirin 81 mg daily EEG 02/16 reveals moderate to severe encephalopathy. No epileptiform activity. EEG 03/05 - diffuse encephalopathy EEG 03/09 completed. Metabolic encephalopathy. Right greater than left posterior and mid temporal region with possible epileptiform activity. No Seizure activity with left arm twitching. Respiratory: Acute hypoxic respiratory failure Aspiration pneumonitis [id number] aspiration Mod to large R effusion/small left pleural effusion Right upper lobe pulmonary nodules 5 and [address] mm[address] follow up CT in 3-6 months Continue with vent support keep sat >92% Patient is on TP's during day and CPAP at night. Bronchodilator therapy every 6 hours with albuterol every 2 hours for breakthrough Pulm toilet, trach care -- HOB at [address] chest 02/16 revealed moderate to large right pleural effusion and atelectasis/ small left pleural effusion. Status post placement of pigtail catheter right effusion 02/17. Removed 02/28 Tracheostomy 02/[address] Zurita, Cardiovascular: Atrial Fibrillation with Rapid Ventricular Response-early normal sinus rhythm Acute systolic heart failure Small pericardial effusion Echocardiogram 02/12 revealed EF 30-35%. Moderate TR. MARIA 53 mmHg. Echocardiogram 02/19 revealed EF 35%. Hypokinesis global. Small Mobile densities tricuspid and mitral valve ? vegetation question right MARIA 52 mmHg. On metoprolol 50 every 6 hours and hydralazine to 25 every 8 hours. Monitor HR and BP keep MAP>65mmhg Renal: Acute Kidney Injury secondary to ATN Monitor renal function, I/O's, avoid nephrotoxins. Cr: 1.84 today FEN/GI: Acute protein calorie malnutrition- severe C.Difficile Colitis Diarrhea Acute on chronic Aspiration Constipation Hyponatremia TF with Jevity 1.5 goal 60 cc an hour Colace twice a day/Senokot twice a day. Miralax daily PEG tube by Dr. Cox Heme/ID: C. 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 Pertinent cultures 02/07 - blood cultures 2 - no growth 02/08 - stool -- C. difficile positive 02/09 - blood cultures 2 - no growth 02/12 - urine - no growth 02/13 - sputum - no growth 02/15 - blood cultures 2 - no growth 02/18 - urine - no growth 02/21 - blood no growth to date Endocrine: Hyperglycemia of critical illness (resolved) No sliding-scale ordered currently Prophylaxis: GI Prevacid DVT - SCD/pharmacological prophylaxis contraindicated with microhemorrhages. See neuro IV access: RUE PICC line. Geraldine Morgan [phone] is health care proxy. Daughter in charge of finances. Level 3 Olga Gaxiola MD March 13, 2017 09:37
[2017-03-13] MEDS: PHENobarbital ELIX 20 MG/5 ML CUP PO SCH (20:41)
[2017-03-14] VITALS (11 sets, daily range): BP systolic 127–194; BP diastolic 80–86; PULSE 86–101; RESP 20–22; TEMP 98–98.9; O2SAT 100
[2017-03-14] MEDS: METOPROLOL TARTRATE 50 MG TAB PO SCH ×3 (00:55→12:14)
[2017-03-14] MEDS: RESP: ALBUTEROL 2.5 MG/IPRATROPIUM 0.5 MG NEB (SCH) NEB ×2 (02:56→09:32)
[2017-03-14] MEDS: METOCLOPRAMIDE HCL 10 MG/2 ML VIAL IV PUSH SCH ×2 (05:34→12:14)
[2017-03-14] MEDS: hydrALAZINE HCL 25 MG TAB PO SCH ×2 (05:34→12:12)
[2017-03-14] MEDS: ARTIFICIAL TEARS OPTH SOLN 15 ML BTL EACH EYE SCH ×2 (05:35→08:43)
[2017-03-14] MEDS: CEFEPIME INJ 2,000 MG in SODIUM CHLORIDE 0.9% INJ 100 ML IV SCH (05:35)
--- NOTE | 2017-03-14 06:36 | RADRPT ---
EXAM DATE/TIME: 03/14/2017 04:44 [facility] COMPARISON: CHEST SINGLE AP, March 12, 2017, 4:50. INDICATIONS : Chest pain. MEDICAL HISTORY : None. SURGICAL HISTORY : None. ENCOUNTER: Initial ACUITY: 1 day PAIN SCORE: 0/10 LOCATION: Bilateral chest FINDINGS: A single portable frontal view the chest shows no interval change. Posterior layering pleural effusio ns noted bilaterally with associated atelectasis versus infiltrates. Heart is normal in size. Tracheo stomy tube and right-sided PICC line. CONCLUSION: Unchanged bilateral pleural effusions with associated atelectasis/infiltrates. Kaiser Valiente Jr., MD on March 14, 2017 at 6:33 Board Certified Radiologist. This report was verified electronically.
[2017-03-14 07:53] LABS: AUTOMATED NEUTROPHIL # 5.3 TH/MM3 (1.8-7.7); BASOPHIL # 0.1 TH/MM3 (0-0.2); BASOPHIL % 0.7 % (0.0-2.0); EOSINOPHIL # 0.8 TH/MM3 (0-0.4); EOSINOPHIL % 9.3 % (0.0-4.0); HEMATOCRIT 25.1 % (39.0-51.0); HEMO FLAGS DIFF FINAL; LYMPH % 13.9 % (9.0-44.0); LYMPHOCYTE # 1.2 TH/MM3 (1.0-4.8); MEAN CELL VOLUME 88.7 FL (80.0-100.0); MEAN CORPUSCULAR HEMOGLOBIN 30.1 PG (27.0-34.0); MEAN CORPUSCULAR HGB CONC 33.9 % (32.0-36.0); MONO % 13.8 % (0.0-8.0); NEUT % 62.3 % (16.0-70.0); PLATELET COUNT 381 TH/MM3 (150-450); RED BLOOD COUNT 2.83 MIL/MM3 (4.50-5.90); WHITE BLOOD COUNT 8.5 TH/MM3 (4.0-11.0)
[2017-03-14 08:10] LABS: BICARBONATE 26.9 MEQ/L (21.0-32.0); POTASSIUM 4.5 MEQ/L (3.5-5.1)
[2017-03-14 08:13] LABS: PHENOBARBITAL 5.8 MCG/ML (15.0-40.0)
[2017-03-14] MEDS: POLYETHYLENE GLYCOL 17 GM PKG PO SCH (08:38)
[2017-03-14] MEDS: CHLORHEXIDINE 0.12% (ORAL KIT) 15 ML CUP MT SCH (08:38)
[2017-03-14] MEDS: PHENYTOIN SUSP 100 MG/4 ML CUP PO SCH ×2 (08:39→12:11)
[2017-03-14] MEDS: LACTOBACILLUS ACIDOPHILUS TAB PO SCH ×2 (08:40→12:11)
[2017-03-14] MEDS: PHENobarbital ELIX 20 MG/5 ML CUP PO SCH (08:40)
[2017-03-14] MEDS: DOCUSATE SODIUM 100 MG/10 ML UDC PO SCH (08:41)
[2017-03-14] MEDS: levETIRAcetam 500 MG/5 ML UDC PO SCH (08:41)
[2017-03-14] MEDS: LANSOPRAZOLE SOLUTAB 30 MG TAB NG SCH (08:42)
[2017-03-14] MEDS: ASPIRIN 81 MG CHEW TAB CHEW SCH (08:42)
[2017-03-14] MEDS: COLLAGENASE OINT 30 GM TUBE TOPICAL SCH (08:43)
[2017-03-14] MEDS: BACITRACIN TOP OINT 15 GM TUBE TOPICAL SCH (08:43)
[2017-03-14] MEDS: SODIUM CHLORIDE 0.9% FLUSH 10 ML FLUSH IV FLUSH SCH (08:43)
[2017-03-14] MEDS: SENNOSIDES SYRUP 8.8 MG/5 ML CUP PO SCH (08:44)
--- NOTE | 2017-03-14 08:56 | HHI.PR ---
Review/Management Diagnosis multiple small strokes in different vascular territories with some with microscopic hemorrhage THe differential would inlcude septic emboli from possible SBE given the echo finding of a possible mitral valve vegetation vs emboli from afib possible focal seizures Plan would continue the aspirin. continue keppra continue dilantin continue phenobarbital Diagnosis/Plan: Subjective Subjective Comments No acute events reported No further seizures or myoclonus Active Medications Current Medications Medications (Trade) Dose Ordered Sig/Connor Route Start Time Stop Time Status Last Admin (Zofran Inj) 4 mg Q8H PRN IV PUSH 02/07/17 21:45 (Tylenol) 500 mg Q4H PRN PO 02/08/17 13:15 03/02/17 08:01 (Lactinex) 1 tab TID PO 02/09/17 13:00 03/14/17 08:40 (Peridex 0.12% Liq) 15 ml BID@08,20 MT 02/12/17 20:00 03/14/17 08:38 (D50w (Vial) Inj) 25 ml UNSCH PRN IV PUSH 02/12/17 14:30 02/24/17 18:16 (Aspirin Chew) 81 mg DAILY CHEW 02/13/17 09:00 03/14/17 08:42 Miscellaneous Information Patient in critical care unit? Ass... Q361D .XX 02/12/17 22:00 (Senna Liq) 8.8 mg BID PO 02/17/17 21:00 03/14/17 08:44 (Glycerin Adult Supp) 2 gm BID PRN RECTAL 02/17/17 10:15 (Tears Naturale Opth Soln) 1 drop Q8HR EACH EYE 02/17/17 14:00 03/14/17 08:43 Metoclopramide HCl 5 mg 5 mg Q8HR IV PUSH 02/19/17 14:00 03/14/17 05:34 (Vancomycin Consult Pharmacy) 0 ml @ 0 mls/hr UNSCH OTHER 02/21/17 13:15 (Colace Liq) 100 mg BID PO 02/22/17 09:00 03/14/17 08:41 (Trandate Inj) 10 mg Q1H PRN IV PUSH 02/24/17 08:00 03/02/17 08:01 (Apresoline Inj) 10 mg Q1H PRN IV PUSH 02/24/17 08:00 03/13/17 14:53 (Nitroglycerin 2% Oint) 2 inch Q6H PRN TOPICAL 02/24/17 08:00 (Santyl Oint) 1 applic DAILY TOPICAL 03/01/17 09:00 03/14/17 08:43 (Baciguent Oint) 1 applic Q12HR TOPICAL 02/28/17 21:00 03/14/17 08:43 (Miralax) 17 gm DAILY PO 03/01/17 09:00 03/14/17 08:38 (NS Flush) See Protocol DAILY IV FLUSH 03/02/17 09:00 03/14/17 08:43 (NS Flush) See Protocol UNSCH PRN IV FLUSH 03/01/17 19:15 03/03/17 06:08 (Heparin Central Flush) See Protocol DAILY IV FLUSH 03/02/17 09:00 03/14/17 08:39 (Heparin Central Flush) See Protocol UNSCH PRN IV FLUSH 03/01/17 19:15 (NS Flush) UNSCH PRN IV FLUSH 03/01/17 19:15 03/02/17 08:02 (SEROquel) 50 mg Q8HR PO 03/02/17 22:00 Hold 03/12/17 05:17 (Apresoline) 25 mg Q8HR PO 03/02/17 22:00 03/14/17 05:34 Fentanyl Citrate 50 mcg 50 mcg Q2H PRN IV PUSH 03/02/17 21:00 03/11/17 03:46 Potassium Chloride 100 ml @ 50 mls/hr Q2H PRN IV 03/03/17 14:30 (KCl 20 Meq Premix Inj) 100 ml @ 50 mls/hr Q2H PRN IV 03/03/17 14:30 Potassium Bicarb/ Potassium Chloride 50 meq 50 meq UNSCH PRN PO 03/03/17 14:30 Potassium Chloride 100 ml @ 25 mls/hr UNSCH PRN IV 03/03/17 14:30 Potassium Chloride 100 ml @ 50 mls/hr Q2H PRN IV 03/03/17 14:30 (Magnesium Sulfate Inj/NS Inj) 100 ml @ 50 mls/hr UNSCH PRN IV 03/03/17 14:30 Magnesium Oxide 800 mg 800 mg UNSCH PRN PO 03/03/17 14:30 (Magnesium Sulfate Inj/NS Inj) 100 ml @ 50 mls/hr UNSCH PRN IV 03/03/17 14:30 Potassium Phosphate 2000 mg 2,000 mg Q4H PRN PO 03/03/17 14:30 (Sodium Phosphate Inj/NS 250 ml Inj) 250 ml @ 42 mls/hr UNSCH PRN IV 03/03/17 14:30 03/03/17 17:44 (K-Phos) 2,000 mg UNSCH PRN PO/TUBE 03/03/17 14:30 Lansoprazole 30 mg 30 mg DAILY NG 03/08/17 09:00 03/14/17 08:42 (Maxipime Inj/NS Inj) 100 ml @ 200 mls/hr Q24H IV 03/10/17 04:00 03/20/17 04:01 03/14/17 05:35 (Lopressor) 50 mg Q6HR PO 03/11/17 12:00 03/14/17 05:34 (Dilantin Liq) 100 mg TID PO 03/12/17 18:00 03/14/17 08:39 (Keppra Liq) 1,000 mg Q12HR PO 03/13/17 21:00 03/14/17 08:41 Phenobarbital 60 mg 60 mg Q12HR PO 03/13/17 21:00 03/14/17 08:40 (Vancomycin Inj/ NS 500 ml Inj) 515 ml @ 250 mls/hr ONCE ONCE IV 03/14/17 11:00 03/14/17 13:03 Allergies Allergies Coded Allergies No Known Allergies (Verified11/22/06) UNOBTAINABLE (Unverified02/09/17) Exam I&O / VS 03/13/17 03/13/17 03/14/17 15:00 23:00 07:00 Intake Total 396 ml 490 ml 516 ml Output Total 750 ml 450 ml 550 ml Balance -354 ml 40 ml -34 ml Intake Oral 0 ml 0 ml IV Total 0 ml 100 ml Tube Feeding 336 ml 490 ml 336 ml Other 60 ml 80 ml Output Urine Total 750 ml 450 ml 550 ml # Bowel Movements 1 0 1 Vital Signs Date Time Temp Pulse Resp B/P Pulse Ox O2 Delivery O2 Flow Rate FiO2 03/14/17 06:00 100 03/14/17 04:18 100 35 03/14/17 04:00 100 35 03/14/17 04:00 95 03/14/17 04:00 35 03/14/17 04:00 98.4 95 20 127/86 100 03/14/17 02:00 90 03/14/17 01:43 100 35 03/14/17 00:00 100 35 03/14/17 00:00 98.0 93 21 156/83 100 03/14/17 00:00 35 03/14/17 00:00 93 03/13/17 22:00 93 03/13/17 21:05 100 35 03/13/17 20:00 35 03/13/17 20:00 100 T-Piece 35 03/13/17 20:00 91 03/13/17 20:00 99.1 91 23 161/82 100 03/13/17 18:00 91 03/13/17 16:00 35 03/13/17 16:00 100 Bi-Pap 35 T-Piece 03/13/17 16:00 98.5 92 22 152/90 100 03/13/17 16:00 92 03/13/17 15:00 100 03/13/17 15:00 93 25 170/89 100 03/13/17 14:01 95 26 182/94 100 03/13/17 14:01 100 03/13/17 14:00 90 03/13/17 13:00 93 21 82/55 100 03/13/17 13:00 100 03/13/17 12:00 35 03/13/17 12:00 98.8 98 24 151/83 100 03/13/17 12:00 100 03/13/17 12:00 100 Bi-Pap 35 T-Piece 03/13/17 11:00 100 03/13/17 11:00 87 19 157/82 100 03/13/17 10:00 100 03/13/17 10:00 93 03/13/17 10:00 96 24 156/85 100 03/13/17 09:05 100 T-piece 35 03/13/17 09:00 92 21 168/86 100 03/13/17 09:00 100 Exam Comments very lethargic does not follow commands Pupils equal Motor- no spontaneous limb movement. No myoclonus Objective Micro and Labs Laboratory Tests Test 03/14/17 06:00 White Blood Count 8.5 Red Blood Count 2.83 Hemoglobin 8.5 Hematocrit 25.1 Mean Corpuscular Volume 88.7 Mean Corpuscular Hemoglobin 30.1 Mean Corpuscular Hemoglobin 33.9 Concent Red Cell Distribution Width 16.0 Platelet Count 381 Mean Platelet Volume 8.6 Neutrophils (%) (Auto) 62.3 Lymphocytes (%) (Auto) 13.9 Monocytes (%) (Auto) 13.8 Eosinophils (%) (Auto) 9.3 Basophils (%) (Auto) 0.7 Neutrophils # (Auto) 5.3 Lymphocytes # (Auto) 1.2 Monocytes # (Auto) 1.2 Eosinophils # (Auto) 0.8 Basophils # (Auto) 0.1 CBC Comment DIFF FINAL Differential Comment Sodium Level 132 Potassium Level 4.5 Chloride Level 99 Carbon Dioxide Level 26.9 Anion Gap 6 Blood Urea Nitrogen 37 Creatinine 1.77 Estimat Glomerular Filtration 45 Rate Random Glucose 132 Calcium Level 8.2 Random Vancomycin Level 14.2 Phenobarbital Level 5.8 Darius Avalos PhD March 14, 2017 08:56
[2017-03-14] MEDS ORDERED: BACI500O2 TOPICAL (10:15)
[2017-03-14] MEDS ORDERED: DOCU100S PO (10:15)
[2017-03-14] MEDS ORDERED: PHEN20EL3 PO (10:15)
[2017-03-14] MEDS ORDERED: POLY17S PO (10:15)
[2017-03-14] MEDS ORDERED: PHEN125S PO (10:15)
[2017-03-14] MEDS ORDERED: PREV30TA3 NG (10:15)
[2017-03-14] MEDS ORDERED: Artificial Tears Opth Soln EACH EYE (10:15)
[2017-03-14] MEDS ORDERED: CEFE2INJ2 IV (10:15)
[2017-03-14] MEDS ORDERED: LEVE500S PO (10:15)
[2017-03-14] MEDS ORDERED: Aspirin Chew CHEW (10:15)
[2017-03-14] MEDS ORDERED: METO-309 PO (10:15)
[2017-03-14] MEDS ORDERED: ACET500T3 PO (10:15)
[2017-03-14] MEDS ORDERED: SENN8.8L PO (10:15)
[2017-03-14] MEDS ORDERED: HYDR25TA35 PO (10:15)
[2017-03-14] MEDS ORDERED: LACT PO (10:15)
--- NOTE | 2017-03-14 10:18 | HHI.DS ---
Discharge Summary Admission Date Feb 07, 2017 at 21:47 Admitting Diagnosis pneumonia, sepsis (1) Pneumonia ICD Code: J18.9 Diagnosis: Principal (2) Sepsis ICD Code: A41.9 Diagnosis: Principal (3) Elevated troponin I level ICD Code: R74.8 Diagnosis: Principal (4) Encephalopathy ICD Code: G93.40 Diagnosis: Principal (5) Clostridium difficile infection ICD Code: B96.89 Diagnosis: Principal (6) Dysphagia ICD Code: R13.10 Diagnosis: Principal (7) Acute respiratory failure ICD Code: J96.00 Diagnosis: Principal (8) Atrial fibrillation with RVR ICD Code: I48.91 Diagnosis: Principal (9) CVA (cerebral vascular accident) ICD Code: I63.9 Diagnosis: Principal (10) Seizures ICD Code: R56.9 Diagnosis: Principal Procedures Trach/PEG Brief History History cannot be obtained from patient due to dementia; no family has accompanied the patient and we have no contact information for family. History is obtained from discussions with ER physician and ER nurse. Some of their information was gathered from what limited data EMS collected regarding patient' s condition. The patient is seen in the emergency room. He states that his name is "Tono " and he tells us he does not have a last name. He is alert and oriented to self only. He is unable to provide any historical information. The patient's registered nurse tells us that EMS reported the patient had an unsteady gait for 1 day and fell at home. He is normally able to walk without assistance. He has a history of dementia. Hopefully the patient's family will come to the bedside to clarify the patient's history. The patient's nurse indicates that the triage security and staff are aware that we are looking for family and have been directed to bring them straight back to the unit where he is should they arrive. CBC/BMP: 03/14/17 0600 03/14/17 0600 Significant Findings Laboratory Tests Test 03/12/17 03/13/17 03/14/17 03:05 04:00 06:00 Red Blood Count 2.53 MIL/MM3 2.81 MIL/MM3 2.83 MIL/MM3 (4.50-5.90) (4.50-5.90) (4.50-5.90) Hemoglobin 7.6 GM/DL 8.5 GM/DL 8.5 GM/DL (13.0-17.0) (13.0-17.0) (13.0-17.0) Hematocrit 22.6 % 24.8 % 25.1 % (39.0-51.0) (39.0-51.0) (39.0-51.0) Monocytes (%) (Auto) 13.8 % 13.8 % 13.8 % (0.0-8.0) (0.0-8.0) (0.0-8.0) Eosinophils (%) (Auto) 9.4 % (0.0-4.0) 7.2 % (0.0-4.0) 9.3 % (0.0-4.0) Monocytes # (Auto) 1.0 TH/MM3 1.1 TH/MM3 1.2 TH/MM3 (0-0.9) (0-0.9) (0-0.9) Eosinophils # (Auto) 0.7 TH/MM3 0.6 TH/MM3 0.8 TH/MM3 (0-0.4) (0-0.4) (0-0.4) Sodium Level 135 MEQ/L 134 MEQ/L 132 MEQ/L (136-145) (136-145) (136-145) Blood Urea Nitrogen 36 MG/DL (7-18) 37 MG/DL (7-18) 37 MG/DL (7-18) Creatinine 1.74 MG/DL 1.84 MG/DL 1.77 MG/DL (0.60-1.30) (0.60-1.30) (0.60-1.30) Estimat Glomerular Filtration 45 ML/MIN (>89) 43 ML/MIN (>89) 45 ML/MIN (>89) Rate Random Glucose 120 MG/DL 109 MG/DL 132 MG/DL (74-106) (74-106) (74-106) Calcium Level 7.9 MG/DL 7.9 MG/DL 8.2 MG/DL (8.5-10.1) (8.5-10.1) (8.5-10.1) Aspartate Amino Transf 40 U/L (15-37) 65 U/L (15-37) (AST/SGOT) Albumin 2.0 GM/DL 1.8 GM/DL (3.4-5.0) (3.4-5.0) Free Triiodothyronine (T3) 1.25 PG/ML pg/dL (2.18-3.98) Phenobarbital Level LESS THAN 2.1 3.3 MCG/ML 5.8 MCG/ML MCG/ML (15.0-40.0) (15.0-40.0) (15.0-40.0) Alkaline Phosphatase 134 U/L (45-117) Imaging Last Impressions Chest X-Ray 03/14/17 0000 Signed Impressions: Service Date/Time: Tuesday, March 14, 2017 04:44 - CONCLUSION: Unchanged bilateral pleural effusions with associated atelectasis/infiltrates. Kaiser Valiente Jr., MD Abdomen X-Ray 03/11/17 0000 Signed Impressions: Service Date/Time: Saturday, March 11, 2017 09:46 - CONCLUSION: 1. Nonspecific, nonobstructive bowel gas pattern. 2. Gastrostomy tube now noted in place. 3. Bilateral pleural effusions. Hermilo Borrego MD Neck Magnetic Resonance Angiography 02/19/17 0000 Signed Impressions: Service Date/Time: Sunday, February 19, 2017 09:18 - CONCLUSION: 1. 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 Left vertebral emanates directly from the arch. 2. Otherwise, cervical vessels are all patent with no significant stenosis. Patient is slightly right vertebral dominant distally. Robbie Huggins MD Head Magnetic Resonance Angiography 02/19/17 0000 Signed Impressions: Service Date/Time: Sunday, February 19, 2017 09:18 - CONCLUSION: 1. 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 Intracranial vessels are otherwise patent. 2. No aneurysmal disease. 3. Anatomic variant of the [place] as above. Patient is right vertebral dominant. Robbie Huggins MD Chest CT 02/16/17 0000 Signed Impressions: Service Date/Time: Thursday, February 16, 2017 13:26 - CONCLUSION: 1. Moderate to large right and small left pleural effusion with associated compressive atelectasis. There additionally is airspace consolidation in the right lower lobe. 2. Small pericardial effusion. 3. There are 2 nodules in the right upper lobe measuring 5 mm and 10 mm. Suggest attention to these at followup imaging. Tra Ma MD Brain MRI 02/16/17 0000 Signed Impressions: Service Date/Time: Thursday, February 16, 2017 13:44 - CONCLUSION: Atrophy and extensive white matter disease as well as micro-bleeds the route the cerebral hemispheres and cerebellum. Punctate foci of acute infarction are suspected within the bilateral frontal white matter as described above. Scott Garcia MD Abdomen/Pelvis CT 02/16/17 0000 Signed Impressions: Service Date/Time: Thursday, February 16, 2017 13:26 - CONCLUSION: 1. Diffuse body wall edema, bilateral effusions, pericardial effusion and lower lobe atelectasis and consolidation. 2. Atherosclerosis. Scott Garcia MD Head CT 02/07/17 194 Signed Impressions: Service Date/Time: Tuesday, February 07, 2017 20:03 - CONCLUSION: No acute intracranial injury Tra Garibay MD PE at Discharge General: Thin elderly male in moderate distress. Heart: Tachycardic. No murmur. Lungs: Breathing is labored. Scattered rhonchi, crackles. Abdomen: Soft, nontender, nondistended. Extremities: No lower extremity edema. Psych: Alert. Does not answer questions. 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 CT head 02/07 negative for acute disease MRI brain 02/16 revealed increased signal intensity in the bilateral centrum semi -ovale and periventricular white matter, remote basal ganglia infarcts bilaterally and periventricular punctuate blooming micro-bleeds throughout. 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 Left vertebral takes off from aortic arch Neurology consult Dr. Avalos appreciated. Noted echo 02/12 no vegetations. 02/19 revealed 2 x 4 mm mitral valve leaflet and tricuspid valve lateral leaflet likely vegetation. Not a anticoagulation candidate per neurology due to micro-hemorrhages. Recommended repeat MRI in 4-6 weeks resolution of micro-hemorrhages/rule out septic emboli before initiation anticoagulation Continue aspirin 81 mg daily EEG 02/16 reveals moderate to severe encephalopathy. No epileptiform activity. EEG 03/05 - diffuse encephalopathy EEG 5/5 completed. Metabolic encephalopathy. Right greater than left posterior and mid temporal region with possible epileptiform activity. No Seizure activity with left arm twitching. Respiratory: Acute hypoxic respiratory failure Aspiration pneumonitis [id number] aspiration Mod to large R effusion/small left pleural effusion Right upper lobe pulmonary nodules 5 and [address] mm. Recommend follow up CT in 3-6 months Continue with vent support keep sat >92% Patient is on TP's during day and CPAP at night. Bronchodilator therapy every 6 hours with albuterol every 2 hours for breakthrough Pulm toilet, trach care -- HOB at [address] chest 02/16 revealed moderate to large right pleural effusion and atelectasis/ small left pleural effusion. Status post placement of pigtail catheter right effusion 02/17. Removed 02/28 Tracheostomy 02/[address] Zurita, Cardiovascular: Atrial Fibrillation with Rapid Ventricular Response-early normal sinus rhythm Acute systolic heart failure Small pericardial effusion Echocardiogram 02/12 revealed EF 30-35%. Moderate TR. MARIA 53 mmHg. Echocardiogram 02/19 revealed EF 35%. Hypokinesis global. Small Mobile densities tricuspid and mitral valve ? vegetation question right MARIA 52 mmHg. On metoprolol 50 every 6 hours and hydralazine to 25 every 8 hours. Monitor HR and BP keep MAP>65mmhg Renal: Acute Kidney Injury secondary to ATN Monitor renal function, I/O's, avoid nephrotoxins. Cr: 1.84 today FEN/GI: Acute protein calorie malnutrition- severe C.Difficile Colitis Diarrhea Acute on chronic Aspiration Constipation Hyponatremia TF with Jevity 1.5 goal 60 cc an hour Colace twice a day/Senokot twice a day. Miralax daily PEG tube by Dr. Cox Heme/ID: C. 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 Pertinent cultures 02/07 - blood cultures 2 - no growth 02/08 - stool -- C. difficile positive 02/09 - blood cultures 2 - no growth 02/12 - urine - no growth 02/13 - sputum - no growth 02/15 - blood cultures 2 - no growth 02/18 - urine - no growth 02/21 - blood no growth to date Endocrine: Hyperglycemia of critical illness (resolved) No sliding-scale ordered currently Prophylaxis: GI Prevacid DVT - SCD/pharmacological prophylaxis contraindicated with microhemorrhages. See neuro IV access: RUE PICC line. Geraldine Morgan [phone] is health care proxy. Daughter in charge of finances. Hospital Course This is a 86yM who presented from home with altered mental status and end-stage dementia. His hospital course has been complicated by C. Diff and pneumonia for which he is on appropriate therapy. He has been noted to have qcfcm-pc-zkrbvci aspiration during this hospital stay and has been NPO. Today, a rapid response was called for acute respiratory distress and hypoxia. I was called by Dr. Velez at the rapid response. He believe this is an aspiration event given the patient's clinical history. I immediately went and evaluated the patient. He is labored and in distress. his spo2 is 93% on non-rebreather. He is also in what appears to be new-onset atrial fibrillation with RVR and a HR 160s. Brief review of the pertinent laboratory data demonstrate worsening acute kidney injury, worsening anion-gap metabolic acidosis. Critical care medicine is consulted to evaluate and manage his severe respiratory distress and afib RVR. Unfortunately, the patient is obtunded and cannot provide any additional history. 02/13: no clinical improvements. remains in multiorgan system failure. diltiazem drip weaned to off, but remains on phenylephrine. talked with nephrology who feel clinically, despite some element of JVD, that patient is clinically intravascularly hypovolemic and they recommend gentle ivf hydration, which I am ok with as a trial. mental status poor. kidney injury persists. palliative involved. apparently daughter is not health care surrogate legally, but has been making decisions in the outpatient setting. multiple disagreements within the family. appreciate palliative involvement. 02/14: Renal function continues to worsen and today 57/4.1. D/w Nephrology. If family wants everything done, will need to proceed with HD. Tmax 101.1. ID following 02/15: Remains critically ill, did not tolerate brief CPAP trial. CXR shows mod to large R pl effusion. MAXIMUM TEMPERATURE 100.5. Creatinine slightly improved with urine output more than 1.4 L 02/16: Patient remains intubated, lightly sedated.. Did not tolerate C-peptide yesterday due to tachypnea. CT of the chest shows moderately large right effusion plan for thoracentesis 02/17: Tmax 100.7. No bowel movement since 02/12. On sedation vacation withdrawals but does not follow commands. Tolerating tube feeds at goal. 02/18: Afebrile. One bowel movement overnight. Tolerating tube feeding. Placement of 10 [place] pigtail catheter with 600 cc likely transudative effusion. Tachycardic this AM. 02/19: Currently down for CT abdomen/pelvis with distended abdomen. Also MRA brain/neck with acute/subacute bifrontal CVA. Neurology consult pending. Will likely need tracheostomy. 02/20: Noted emesis last night [address] abdomen/pelvis unremarkable. Moderate gastric output. Started on Reglan. Positive BM. 02/21: Afebrile. Tolerating trickle feeds. One bowel movement. Noted echocardiogram report yesterday. Discussed with Dr. Garcia - blood cultures 2, vancomycin. Reassess in a.m.. Attempting to obtain consent for tracheostomy with . 02/22: Neuro exam unchanged. Mental status will not permit extubation. UO adequate, creat improving. Tracheostomy tomorrow 02/23: Creat continues to improve, no change in mentation. Trach with Parminder today, GI consulted for PEG placement. 02/24: Afebrile. Status post tracheostomy by Dr. Zurita yesterday. Unable to replace gastric tube secondary to bleeding. Plan for PEG on Sunday. 02/25: Currently afebrile. Tracheostomy without bleeding. Hypertensive requiring when necessary's. Plan for PEG Monday 02/26: Afebrile. Check yesterday was unpacked last night. Repacked today. On sedation. Plan for PEG today. 02/27: Afebrile. Chest without bleeding. Continues to be on sedation due to agitation. PEG tube yesterday without competition. Plan remove chest tube today. 02/28: Resting currently in bed. No change in neurological status. Tracheostomy without bleeding. No acute issues. 03/01: Afebrile. More tremulous this a.m. upon removal of fentanyl drip. Currently on PSV trial. Positive BM 2. Tolerating tube feeds at 35 cc an hour. Neurological status unchanged. 03/02: Tmax 100.7. Currently 98.9. One bowel movement yesterday. Tolerating tube feeds at 40 cc an hour. Becomes agitated with removal of fentanyl drip. 03/03 WBC 15.3. Afebrile. On vanc and cefepime per ID. Tolerating CPAP 10/5 with RSBI 40s 03/04 Diuresed net -1.1 L yesterday. Tolerating C Pap 10 over 5 very well and appears can wean further. 03/05: continues to diurese well. still tolerates cpap. awaiting placement. 03/06: Cr slightly worse. likely at dry weight. still tolerating cpap, weaning down support. not ready for t-piece yet, but some improvement. [id number] review today with [employer]. I do not see any barriers to transfer to LTAC. patient does not have any additional inpatient medical needs. 03/07: Afebrile. On PSV trials today. Tolerating tube feeding. Positive bowel movement. Neurological status unchanged. 03/08: Afebrile. Tolerating tube feeds. Currently on T piece. Neurological status unchanged. Off all sedative drips 03/09 No acute events overnight. On ventilator via trach, afebrile. On no drips. Cr: 1.79 today from 1.69. 03/10: No acute events overnight. Seizure activity yesterday and started on Dilantin per Dr. Avalos. Tolerating diet. Positive BM. 03/11: IV fluids discontinued overnight. Patient had emesis overnight. KUB with nonspecific bowel gas pattern. Tube feeds back at goal. Back on T piece trial. Neurologically unchanged. 03/12 No acute events overnight. On CPAP with PS 5, PEEP:5 and FIO2 35% overnight. Tolerated TP's during day yesterday. Afebrile. 03/13 Patient was on CPAP overnight with PS %, PEEP: 5 and FIO2 35%. Afebrile. 03/14 neurologically unchanged. Plan to transfer to [facility] today. Pt Condition on Discharge: Stable Discharge Disposition: Discharge to SNF Discharge Instructions DIET: Follow Instructions for: On Tube Feeding Activities you can perform: Continue Bedrest Gerry Mike MD March 14, 2017 10:18
[2017-03-14] MEDS ORDERED: VANCOMYCIN INJ 1,500 MG in SODIUM CHLORID 0.9% 500 ML INJ 500 ML IV ONE (11:00)
== END 2017-03-14 13:30 | DRG 4 ==
LOC: NEPE 19:41 → NEDA 21:47 → EDBD 21:47 → MERGE 21:47 → NEDH 02-08 01:47 → N05A 02-08 12:40 → HIME 02-12 13:10
PROVIDERS: ADMIT Anesthesiology; ATTEND Anesthesiology
PROC: 5A1955Z Respiratory Ventilation, Greater than 96 Consecutive Hours (ICD-10-PCS; principal; 2017-02-12)
PROC: 0BH17EZ Insertion of Endotracheal Airway into Trachea, Via Natural or Artificial Opening (ICD-10-PCS; 2017-02-12)
PROC: 0T9B70Z Drainage of Bladder with Drainage Device, Via Natural or Artificial Opening (ICD-10-PCS; 2017-02-12)
PROC: 0W9930Z Drainage of Right Pleural Cavity with Drainage Device, Percutaneous Approach (ICD-10-PCS; 2017-02-17)
PROC: 0B113F4 Bypass Trachea to Cutaneous with Tracheostomy Device, Percutaneous Approach (ICD-10-PCS; 2017-02-23)
PROC: 0BJ08ZZ Inspection of Tracheobronchial Tree, Via Natural or Artificial Opening Endoscopic (ICD-10-PCS; 2017-02-23)
PROC: 0DH64UZ Insertion of Feeding Device into Stomach, Percutaneous Endoscopic Approach (ICD-10-PCS; 2017-02-26)
DX: A41.9 Sepsis, unspecified organism (principal); N17.0 Acute kidney failure with tubular necrosis; I63.9 Cerebral infarction, unspecified; R65.21 Severe sepsis with septic shock; I33.0 Acute and subacute infective endocarditis; G93.41 Metabolic encephalopathy; J69.0 Pneumonitis due to inhalation of food and vomit; E43 Unspecified severe protein-calorie malnutrition; A04.7 Enterocolitis due to Clostridium difficile; I50.23 Acute on chronic systolic (congestive) heart failure; J96.01 Acute respiratory failure with hypoxia; E87.2 Acidosis; I24.8 Other forms of acute ischemic heart disease; I31.3 Pericardial effusion (noninflammatory); G40.89 Other seizures; E87.1 Hypo-osmolality and hyponatremia; Z99.11 Dependence on respirator [ventilator] status; J98.11 Atelectasis; S32.039A Unspecified fracture of third lumbar vertebra, initial encounter for closed fracture; F03.90 Unspecified dementia, unspecified severity, without behavioral disturbance, psychotic disturbance, mood disturbance, and anxiety; R74.8 Abnormal levels of other serum enzymes; W19.XXXA Unspecified fall, initial encounter; Y92.009 Unspecified place in unspecified non-institutional (private) residence as the place of occurrence of the external cause; R26.81 Unsteadiness on feet; N18.9 Chronic kidney disease, unspecified; I12.9 Hypertensive chronic kidney disease with stage 1 through stage 4 chronic kidney disease, or unspecified chronic kidney disease; I48.91 Unspecified atrial fibrillation; R13.10 Dysphagia, unspecified; Z51.5 Encounter for palliative care; R91.1 Solitary pulmonary nodule; B96.89 Other specified bacterial agents as the cause of diseases classified elsewhere; E86.1 Hypovolemia; R45.1 Restlessness and agitation; K59.00 Constipation, unspecified; K11.20 Sialoadenitis, unspecified; R73.9 Hyperglycemia, unspecified; Z74.01 Bed confinement status; G25.3 Myoclonus; E83.39 Other disorders of phosphorus metabolism
CPT/HCPCS: 31500; 31600; 31624; 32551; 36569; 36600; 70450; 70544; 70547; 70551; 71010; 71020; 71250; 74000; 74176; 76937; 80048; 80053; 80069; 80184; 80185; 80202; 81001; 82140; 82550; 82552; 82607; 82805; 82948; 83605; 83690; 83735; 83880; 84100; 84155; 84439; 84443; 84481; 84484; 85007; 85014; 85018; 85025; 85027; 85610; 85730; 87040; 87070; 87086; 87205; 87449; 87493; 87641; 93005; 93306; 94002; 94003; 94640; 94664; 95819; 96374; C1769; J0171; J0360; J0456; J0692; J0696; J1170; J1642; J1953; J2060; J2212; J2250; J2310; J2370; J2560; J2765; J3010; J3370; J3475; J3480; J7030; J7040; J7042; J7050; J7060; J7070; J7613; P9047; Q2009; Q9963